=== PATIENT | male | born 1960 ===

== ENCOUNTER 2017-06-13 14:17 | Emergency (ER) | payer MEDICARE ==
[2017-06-13 14:25] VITALS: TEMP 98
[2017-06-13 15:13] LABS: BASO % 0.5 % (0.0-2.0); EOS # 0.2 K/uL (0.0-0.7); EOS % 2.5 % (0.0-4.0); HEMATOCRIT 27.4 % (35.0-51.0); LYMPH # 0.6 K/uL (1.0-4.3); LYMPH % 8.9 % (20.0-40.0); MEAN CELL VOLUME 87.4 fL (80.0-94.0); MEAN CORPUSCULAR HEMOGLOBIN 29.4 pg (27.0-31.0); MEAN CORPUSCULAR HGB CONC 33.7 g/dL (33.0-37.0); MEAN PLATELET VOLUME 10.4 fL (7.2-11.7); MONO # 0.7 K/uL (0.0-0.8); MONO % 10.2 % (0.0-10.0); PLATELET COUNT 116 K/uL (130-400); RED CELL DISTRIBUTION WIDTH 15.4 % (11.5-14.5); WHITE BLOOD COUNT 6.4 K/uL (4.8-10.8)
--- NOTE | 2017-06-13 15:14 | RAD ---
PROCEDURE: CHEST RADIOGRAPH, 1 VIEW HISTORY: SOB COMPARISON: None available. FINDINGS: LUNGS: Mild pulmonary vascular congestion is noted. PLEURA: No pneumothorax or pleural fluid seen. CARDIOVASCULAR: The cardiac silhouette is mildly enlarged. OSSEOUS STRUCTURES: No significant abnormalities. VISUALIZED UPPER ABDOMEN: Normal. OTHER FINDINGS: None. IMPRESSION: Mild cardiomegaly and mild pulmonary vascular congestion.
[2017-06-13 15:53] LABS: EOSINOPHIL 2 % (0-4); NEUTROPHIL 82 % (50-75); TOTAL CELLS COUNTED 100
[2017-06-13 15:58] LABS: LARGE PLATELETS PRESENT
[2017-06-13 16:40] LABS: BILIRUBIN,TOTAL 0.6 mg/dL (0.2-1.3); CALCIUM 7.6 mg/dl (8.6-10.4); POTASSIUM 3.6 mmol/L (3.6-5.2); TROPONIN I 0.287 ng/mL (0.00-0.120)
[2017-06-13 17:44] VITALS: BP 169/88; PULSE 64; RESP 18; O2SAT 100
--- NOTE | 2017-06-13 18:03 | C.PDOC ---
History Of Present Illness 56 year old male with PMHx of CHF and asthma presents to the ED for evaluation of SOB and dyspnea on exertion for several days. Patient has questionable compliance with his medications. Patient denies any CP, abdominal pain, fever, nausea, vomit, cough, diarrhea, headache, numbness or weakness. Chief Complaint (Nursing): Shortness Of Breath History Per: Patient History/Exam Limitations: no limitations Onset/Duration Of Symptoms: Days Current Symptoms Are (Timing): Still Present Quality: "Pain" Current Respiratory Medications: See Home Med List Severity: Mild Recent travel outside of the [place]: No Additional History Per: Patient Past Medical History Reviewed: Historical Data, Nursing Documentation, Vital Signs Vital Signs: Last Vital Signs Temp 98.0 F 06/13/17 14:22 Pulse 64 06/13/17 17:30 Resp 18 06/13/17 17:30 BP 169/88 H 06/13/17 17:30 Pulse Ox 100 06/13/17 18:14 - Medical History PMH: Asthma, CHF Surgical History: No Surg Hx Family History: States: Unknown Family Hx - Social History Hx Alcohol Use: No Hx Substance Use: No Review Of Systems Constitutional: Negative for: Fever, Chills Cardiovascular: Positive for: Chest Pain. Negative for: Palpitations Respiratory: Positive for: Shortness of Breath, SOB with Excertion. Negative for: Cough Gastrointestinal: Negative for: Nausea, Vomiting, Abdominal Pain Genitourinary: Negative for: Dysuria, Hematuria Musculoskeletal: Negative for: Neck Pain, Back Pain Skin: Negative for: Rash Neurological: Negative for: Weakness, Numbness, Headache Physical Exam - Physical Exam Appears: Non-toxic, No Acute Distress, Other (Obese) Skin: Normal Color, Warm, Dry Head: Atraumatic, Normacephalic Nose: No Discharge Oral Mucosa: Moist Neck: Normal ROM, Supple Chest: Symmetrical Cardiovascular: Rhythm Regular, No Murmur Respiratory: No Accessory Muscle Use, Rales (Bases B/L), No Rhonchi, No Wheezing Gastrointestinal/Abdominal: Soft, No Tenderness, No Rebound, Other (Obese) Extremity: Normal ROM, Pedal Edema (1+), No Calf Tenderness, No Deformity Neurological/Psych: Oriented x3, Normal Speech, Normal Cognition Gait: Steady ED Course And Treatment - Laboratory Results Result Diagrams: 06/13/17 15:07 06/13/17 15:07 ECG: Interpreted By Me, Viewed By Me ECG Rhythm: Sinus Rhythm ECG Interpretation: Normal Rate From EC O2 Sat by Pulse Oximetry: 100 (On RA) Pulse Ox Interpretation: Normal - Radiology CXR: Interpreted by Me, Viewed By Me, Read By Radiologist CXR Interpretation: Yes: Cardiomegaly (Mild), Other (Mild cardiomegaly and mild pulmonary vascular congestion.) Medical Decision Making Medical Decision Making: Plan: * EKG * CXR * Aspirin 325 mg PO * Catapres 0.1 mg PO * Lasix 20 mg IVP * Blood work Upon questioning about elevated creatinine patient produced a referral for vascular surgery for dialysis shunt placed, discussed elevated troponin where it can be cardiac related. Patient denies CP refusing to be admitted to the hospital for further evaluation signed AMA and states he will follow up with PMD tomorrow morning. Patient understands risks of leaving hospital, including worsening of conditions and . Patient undersood and signed AMA form. Disposition - [facility] - Disposition: AGAINST MEDICAL ADVICE Disposition Time: 17:00 Condition: UNKNOWN Additional Instructions: Thank you for letting us take care of you today. The emergency medical care you received today was directed at your acute symptoms. If you were prescribed any medication, please fill it and take as directed. It may take several days for your symptoms to resolve. Return to the Emergency Department if your symptoms worsen, do not improve, or if you have any other problems. Please contact your doctor or call one of the physicians/clinics you have been referred to that are listed on the Patient Visit Information form that is included in your discharge packet. Bring any paperwork you were given at discharge with you along with any medications you are taking to your follow up visit. Our treatment cannot replace ongoing medical care by a primary care provider (PCP) outside of the emergency department. Thank you for allowing the [facility] team to be part of your care today. YOU SIGNED OUT AGAINST MEDICAL ADVICE TODAY. PLEASE FOLLOW UP WITH YOUR PRIMARY DOCTOR SOON POSSIBLE. RETURN TO THE EMERGENCY ROOM IF YOU HAVE ANY CONCERNS OR YOUR SYMPTOMS WORSEN. Instructions: Chronic Kidney Disease (ED), Chronic Hypertension (ED) Forms: [employer] (Tanzanian) - Clinical Impression Clinical Impression: Chronic congestive heart failure, Renal failure, Hypertension - Scribe Statement The provider has reviewed the documentation as recorded by the Scribjennifer Mello All medical record entries made by the Scribe were at my direction and personally dictated by me. I have reviewed the chart and agree that the record accurately reflects my personal performance of the history, physical exam, medical decision making, and the department course for this patient. I have also personally directed, reviewed, and agree with the discharge instructions and disposition. Against Medical Advice - AMA Patient Left Against Medical Advice: The patient declines admission to the hospital and wishes to leave the Emergency Department. This action is against my medical advice. This decision was made with informed refusal. The patient was told that admission to the hospital is necessary. Explanation of the reasons why were discussed. The risks of leaving were explained to the patient and include, but are not limited to, worsening of known or currently unknown conditions, permanent disability and from undiagnosed or untreated conditions. The patient has the capacity to make this informed decision and understands my explanation of the current medical problem and risks of leaving. The patient voluntarily accepts these risks and signed an AMA form documenting our conversation. The patient was given the opportunity to ask questions and reconsider. The patient was encouraged to return to the Emergency Department at any time for further care.
--- NOTE | 2017-06-14 19:04 | CARD ---
APPROVED REPORT EKG Measurement Heart [id number] <Conclusion> Normal sinus rhythm Abnormal QRS-T angle, consider primary T wave abnormality Abnormal ECG
== END 2017-06-13 17:44 | disposition left against medical advice (07) ==
LOC: C.ER 14:17
DX: I13.0 Hypertensive heart and chronic kidney disease with heart failure and stage 1 through stage 4 chronic kidney disease, or unspecified chronic kidney disease (principal); N18.9 Chronic kidney disease, unspecified; I50.9 Heart failure, unspecified
CPT/HCPCS: 71010; 80053; 83880; 84484; 85025; 93005; 96374; 99285; J1940

== ENCOUNTER 2017-07-15 07:49 | Inpatient (IN) | payer MEDICARE ==
[2017-07-15] MEDS ORDERED: Albuterol-Ipratrop 3 mg / 0.5 (3 ml) UD ONE (08:20)
--- NOTE | 2017-07-15 08:23 | C.PDOC ---
History Of Present Illness 56-YEAR-OLD MALE, PRESENTS TO THE EMERGENCY DEPARTMENT WITH COMPLAINTS OF ASTHMA EXAC X 1 WEEK. NO IMPROVE W HOME MEDS. SAW PMD YEST FOR SAME, GIVEN NEW UNK PUMP BUT NO PREDNISONE. +SUBJ FEVER, CHILLS. +CHEST BOZENA. +WILHELM NO SWELLING. 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 SP NEB X 3 IN PROGRESS MILD DIST HEENT NEG LUNGS +EXP WHEEZE SCATTERED +RETRACTION SPEAKING FULL SENTENCES CV RRR NO EDEMA REMAINDE RNEG Time Seen by Provider: 07/15/17 08:12 Chief Complaint (Nursing): Shortness Of Breath History Per: Patient History/Exam Limitations: no limitations Onset/Duration Of Symptoms: Days Past Medical History Reviewed: Historical Data, Nursing Documentation, Vital Signs Vital Signs: Last Vital Signs Temp 98.9 F 07/15/17 07:55 Pulse 90 07/15/17 07:55 Resp 22 07/15/17 07:55 BP 138/82 07/15/17 07:55 Pulse Ox 95 07/15/17 10:38 - Medical History PMH: Asthma, CHF Family History: States: No Known Family Hx - Social History Hx Alcohol Use: No Hx Substance Use: No Review Of Systems Constitutional: Positive for: Fever, Chills Cardiovascular: Positive for: Other (chest congestion). Negative for: Chest Pain Respiratory: Positive for: Shortness of Breath, Wheezing Gastrointestinal: Negative for: Nausea, Vomiting Musculoskeletal: Negative for: Back Pain Skin: Negative for: Rash Neurological: Negative for: Weakness, Numbness, Headache, Dizziness Physical Exam - Physical Exam Appears: Non-toxic, No Acute Distress Skin: Warm, Dry Head: Atraumatic, Normacephalic Eye(s): bilateral: Normal Inspection, PERRL Nose: Normal Oral Mucosa: Moist Neck: Normal ROM Cardiovascular: Rhythm Regular, No Murmur Respiratory: No Accessory Muscle Use, Other (+EXP WHEEZE SCATTERED +RETRACTION SPEAKING FULL SENTENCES. SP NEB X 3 IN PROGRESS MILD DIST) Extremity: Normal ROM, No Pedal Edema Neurological/Psych: Oriented x3, Normal Speech ED Course And Treatment - Laboratory Results Result Diagrams: 07/15/17 08:49 07/15/17 08:49 Interpretation Of Abnormal: PERSIST RENAL INSUFF UNCH FROM PRIOR. ECG: Interpreted By Me ECG Rhythm: Sinus Rhythm ECG Interpretation: No Changes From Prior Interpretation Of ECG: TWI AVL Rate From EC O2 Sat by Pulse Oximetry: 95 (on RA) Pulse Ox Interpretation: Normal Progress - Re-Evaluation Re-evaluation Note: 07/15/17 10:37 D/W Zoraida NATARAJAN C/F PMD AWARE OF ER FINDINGS WILL ADMIT. REQUESTS DIMER - Data Reviewed Data Reviewed: Lab, Diagnostic imaging, EKG - Critical Care Citical Care: Excluding Proc Time Critical Care Time: 90 minutes - Continuity of Care Discussed patient case with:: Patient, Covering for PMD Disposition Counseled Patient/Family Regarding: Studies Performed, Diagnosis - Disposition Disposition: HOSPITALIZED Disposition Time: 10:40 Condition: STABLE Forms: [employer] (Macedonian) - POA Present On Arrival: None - Clinical Impression Clinical Impression: Renal insufficiency, Dyspnea, Chronic congestive heart failure - Scribe Statement The provider has reviewed the documentation as recorded by the Scribe (Sanjuana Spence) All medical record entries made by the Scribe were at my direction and personally dictated by me. I have reviewed the chart and agree that the record accurately reflects my personal performance of the history, physical exam, medical decision making, and the department course for this patient. I have also personally directed, reviewed, and agree with the discharge instructions and disposition. Decision To Admit - Pt Status Changed To: Hospital Disposition Of: Inpatient - Admit Certification Admit to Inpatient:: After my assessment, the patient will require hospitalization for at least two midnights. This is because of the severity of symptoms shown, intensity of services needed, and/or the medical risk in this patient being treated as an outpatient. - InPatient: Physician Admission Certification:: SEE NOTE - . Bed Request Type: Telemetry Admitting Physician: Mert Natarajan Patient Diagnosis: Renal insufficiency, Dyspnea, Chronic congestive heart failure, Elevated troponin
--- NOTE | 2017-07-15 08:59 | RAD ---
Chest x-ray single frontal view History: Shortness breath. Comparison: None available. Findings: Diffuse increased interstitial lung markings suggestive for venous congestion versus edema versus interstitial infiltrates. Clinical correlation. Mild cardiomegaly. Degenerative changes in the spine and shoulders. Impression: Diffuse increased interstitial lung markings suggestive for venous congestion versus edema versus interstitial infiltrates. Clinical correlation. Mild cardiomegaly.
[2017-07-15 09:02] LABS: BASO % 0.5 % (0.0-2.0); EOS # 0.2 K/uL (0.0-0.7); EOS % 2.4 % (0.0-4.0); HEMOGLOBIN 7.8 g/dL (12.0-18.0); LYMPH # 0.4 K/uL (1.0-4.3); LYMPH % 3.8 % (20.0-40.0); MEAN CELL VOLUME 86.3 fL (80.0-94.0); MEAN CORPUSCULAR HEMOGLOBIN 28.7 pg (27.0-31.0); MEAN CORPUSCULAR HGB CONC 33.2 g/dL (33.0-37.0); MEAN PLATELET VOLUME 9.4 fL (7.2-11.7); MONO # 0.6 K/uL (0.0-0.8); MONO % 6.2 % (0.0-10.0); NEUT # 8.1 K/uL (1.8-7.0); NEUT % 87.1 % (50.0-75.0); PLATELET COUNT 179 K/uL (130-400); RBC 2.71 Mil/uL (4.40-5.90); RED CELL DISTRIBUTION WIDTH 14.4 % (11.5-14.5); WHITE BLOOD COUNT 9.3 K/uL (4.8-10.8)
[2017-07-15 09:32] LABS: EOSINOPHIL 2 % (0-4); LYMPHOCYTE 4 % (20-40); MONOCYTE 2 % (0-10); NEUTROPHIL 92 % (50-75); PLATELET ESTIMATE NORMAL (NORMAL); TOTAL CELLS COUNTED 100
[2017-07-15 09:33] LABS: HYPOCHROMIC SLIGHT; POLYCHROMIC SLIGHT
[2017-07-15 09:48] LABS: ALBUMIN 3.5 g/dL (3.5-5.0); TROPONIN I 0.194 ng/mL (0.00-0.120)
[2017-07-15] MEDS ORDERED: Enoxaparin 40 mg Syringe SC STA (09:56)
[2017-07-15] MEDS ORDERED: Enoxaparin 100 mg Syringe ONE (10:46)
[2017-07-15 15:43] LABS: CK-MB 1.22 ng/mL (0.0-3.38)
[2017-07-15 16:18] LABS: TROPONIN I 0.185 ng/mL (0.00-0.120)
[2017-07-15 21:20] LABS: MEAN CELL VOLUME 86.1 fL (80.0-94.0); MEAN CORPUSCULAR HGB CONC 32.6 g/dL (33.0-37.0); MEAN PLATELET VOLUME 9.3 fL (7.2-11.7); RBC 2.85 Mil/uL (4.40-5.90); RED CELL DISTRIBUTION WIDTH 14.5 % (11.5-14.5)
--- NOTE | 2017-07-15 21:27 | CP.PCM.CON ---
History of Present Illness - History of Present Illness History of Present Illness: 56 with hx of HTN, SOB asthma, reported renal and heart failure no details, seen at ED 06/20 declined admission, now reports sob wheezing for 1 wk, recently seen by pmd, labs GFR of 15, TNI .18 can be due to renal failure, no CP or acute EKG changes, f/u with Echo, was followed by Dr Galindo had cath normal coronaries Review of Systems - Review of Systems Systems not reviewed;Unavailable: Unstable Vital Signs - Constitutional Constitutional: Anorexia, Weakness - EENT Eyes: absent: Discharge Ears: absent: Ear Discharge, Dizziness Nose/Mouth/Throat: absent: Epistaxis - Cardiovascular Cardiovascular: Chest Pain. absent: Acrocyanosis, Diaphoresis, Palpitations, Syncope - Respiratory Respiratory: Dyspnea, Wheezing. absent: Cough, Hemoptysis - Gastrointestinal Gastrointestinal: absent: Abdominal Pain, Diarrhea, Hematochezia, Nausea, Vomiting - Genitourinary Genitourinary: absent: Change in Urinary Stream Past Patient History - Past Medical History & Family History Past Medical History?: Yes - Past Social History Smoking Status: Former Smoker - CARDIAC Hx Congestive Heart Failure: Yes Hx Hypertension: Yes - PULMONARY Hx Asthma: Yes Hx Pneumonia: Yes - RENAL Other/Comment: kidney insufficiency - MUSCULOSKELETAL/RHEUMATOLOGICAL Hx Back Pain: Yes Hx Falls: No Hx Herniated Disk: Yes - PSYCHIATRIC Hx Substance Use: No - SURGICAL HISTORY Hx Appendectomy: Yes (1982) - ANESTHESIA Hx Anesthesia: Yes Hx Anesthesia Reactions: Yes Hx Malignant Hyperthermia: No Has any member of the family had a problem w/ anesthesia?: No Meds Allergies/Adverse Reactions: Allergies Allergy/AdvReac Type Severity Reaction Status Date / Time No Known Allergies Allergy Verified 07/15/17 08:02 - Medications Medications: Current Medications Carvedilol (Coreg) 12.5 mg PO BID [facility] Last Admin: 07/15/17 18:34 Dose: 12.5 mg Clonidine HCl (Catapres) 0.1 mg PO BID [facility] Last Admin: 07/15/17 18:35 Dose: 0.1 mg Doxazosin Mesylate (Cardura) 2 mg PO DAILY [facility] Enoxaparin Sodium (Lovenox) 40 mg SC DAILY [facility] Montelukast Sodium (Singulair) 10 mg PO DAILY [facility] Pantoprazole Sodium (Protonix Ec Tab) 40 mg PO DAILY [facility] Rosuvastatin Calcium (Crestor) 20 mg PO HS [facility] Physical Exam - Constitutional Appears: Non-toxic - Head Exam Head Exam: ATRAUMATIC - Eye Exam Eye Exam: EOMI - ENT Exam ENT Exam: Mucous Membranes Moist - Neck Exam Neck exam: Negative for: Lymphadenopathy, Thyromegaly - Respiratory Exam Respiratory Exam: Prolonged Expiratory Phase, Wheezes. absent: Rales - Cardiovascular Exam Cardiovascular Exam: REGULAR RHYTHM, Systolic Murmur - GI/Abdominal Exam GI & Abdominal Exam: Normal Bowel Sounds. absent: Organomegaly - Rectal Exam Rectal Exam: Deferred - Extremities Exam Extremities exam: Positive for: normal capillary refill. Negative for: calf tenderness - Neurological Exam Neurological exam: Alert, Oriented x3 - Psychiatric Exam Psychiatric exam: Anxious - Skin Skin Exam: Dry Results - Vital Signs Recent Vital Signs: Last Vital Signs Temp 98.3 F 07/15/17 18:21 Pulse 83 07/15/17 18:21 Resp 20 07/15/17 18:21 BP 155/89 H 07/15/17 18:34 Pulse Ox 96 07/15/17 18:21 - Labs Result Diagrams: 07/16/17 07:22 07/15/17 08:49 Labs: Laboratory Results - last 24 hr 07/15/17 07/15/17 07/15/17 08:23 08:49 08:49 WBC 9.3 RBC 2.71 L Hgb 7.8 L Hct 23.4 L MCV 86.3 MCH 28.7 MCHC 33.2 RDW 14.4 Plt Count 179 MPV 9.4 Neut % (Auto) 87.1 H Lymph % (Auto) 3.8 L [place] % (Auto) 6.2 Eos % (Auto) 2.4 Baso % (Auto) 0.5 Neut # 8.1 H Lymph # 0.4 L [place] # 0.6 Eos # 0.2 Baso # 0.0 Neutrophils % (Manual) 92 H Lymphocytes % (Manual) 4 L Monocytes % (Manual) 2 Eosinophils % (Manual) 2 Platelet Estimate Normal Polychromasia Slight Hypochromasia (manual) Slight D-Dimer, Quantitative Sodium 135 Potassium 4.0 Chloride 101 Carbon Dioxide 25 Anion Gap 14 BUN 62 H Creatinine 4.8 H Est GFR ( Amer) 15 Est GFR (Non-Af Amer) 13 POC Glucose (mg/dL) Random Glucose 147 H Calcium 8.0 L Total Bilirubin 0.5 AST 19 ALT 23 Alkaline Phosphatase 53 Total Creatine Kinase CK-MB (Mass) Troponin I 0.1940 H* NT-Pro-B Natriuret Pep 2040 H Total Protein 6.8 Albumin 3.5 Globulin 3.4 Albumin/Globulin Ratio 1.0 Influenza Typ A,B (EIA) Negative for flu a/b 07/15/17 07/15/17 07/15/17 11:05 15:16 20:59 WBC RBC Hgb Hct MCV MCH MCHC RDW Plt Count MPV Neut % (Auto) Lymph % (Auto) [place] % (Auto) Eos % (Auto) Baso % (Auto) Neut # Lymph # [place] # Eos # Baso # Neutrophils % (Manual) Lymphocytes % (Manual) Monocytes % (Manual) Eosinophils % (Manual) Platelet Estimate Polychromasia Hypochromasia (manual) D-Dimer, Quantitative 945 H Sodium Potassium Chloride Carbon Dioxide Anion Gap BUN Creatinine Est GFR ( Amer) Est GFR (Non-Af Amer) POC Glucose (mg/dL) 306 H Random Glucose Calcium Total Bilirubin AST ALT Alkaline Phosphatase Total Creatine Kinase 100 CK-MB (Mass) 1.22 Troponin I 0.1850 H* NT-Pro-B Natriuret Pep Total Protein Albumin Globulin Albumin/Globulin Ratio Influenza Typ A,B (EIA) Assessment & Plan (1) Shortness of breath Status: Acute Comment: asthma V/S failure, BNP 2000, f/u with echo, can be diastolic failure with renal failure (2) Elevated troponin Status: Acute Comment: unlikely SC, no CP or ekg changes (3) Renal failure Status: Acute Comment: GFR 15, consider HD Stage V
[2017-07-15 21:29] LABS: SQUAMOUS EPITHIAL < 1 /hpf (0-5); URINE BACTERIA RARE (<OCC); URINE BILIRUBIN NEGATIVE (NEGATIVE); URINE BLOOD NEGATIVE (NEGATIVE); URINE CLARITY Hazy (Clear); URINE COLOR Yellow (YELLOW); URINE GLUCOSE (UA) 2+ mg/dL (Normal); URINE LEUKOCYTE ESTERASE NEG Leu/uL (Negative); URINE NITRATE NEGATIVE (NEGATIVE); URINE PROTEIN 3+ mg/dL (NEGATIVE); URINE UROBILINOGEN NORMAL mg/dL (0.2-1.0)
[2017-07-15 21:52] LABS: CK-MB 1.18 ng/mL (0.0-3.38); TROPONIN I 0.156 ng/mL (0.00-0.120)
--- NOTE | 2017-07-15 23:30 | CP.PCM.HP ---
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 , seen at ED 06/20 declined admission, now reports sob wheezing for 1 wk, recently seen by pmd, labs GFR of 15, TNI .18 can be due to renal failure, no CP or acute EKG changes, f/u with Echo, pt also reports generalized weakness with dysonea on rest as well as exertion, he has lack of energy denies any chest pain, diaphoresis, had tinglin g and numbness in b/l LE Present on Admission - Present on Admission Any Indicators Present on Admission: Yes Review of Systems - Review of Systems Systems not reviewed;Unavailable: Acuity of Condition - Constitutional Constitutional: Fatigue, Lethargy, Malaise, Weakness - EENT Eyes: absent: As Per HPI, Blind Spots, Blurred Vision, Change in Vision, Decreased Night Vision, Diplopia, Discharge, Dry Eye, Exophthalmos, Floaters, Irritation, Itchy Eyes, Loss of Peripheral Vision, Pain, Photophobia, Requires Corrective Lenses, Sees Flashes, Spots in Vision, Tunnel Vision, Other Visual Disturbances, Loss of Vision, Other Nose/Mouth/Throat: absent: As Per HPI, Epistaxis, Nasal Congestion, Nasal Discharge, Nasal Obstruction, Nasal Trauma, Nose Pain, Post Nasal Drip, Sinus Pain, Sinus Pressure, Bleeding Gums, Change in Voice, Dental Pain, Dry Mouth, Dysphagia, Halitosis, Hoarsness, Lip Swelling, Mouth Lesions, Mouth Pain, Odynophagia, Sore Throat, Throat Swelling, Tongue Swelling, Facial Pain, Neck Pain, Neck Mass, Other - Cardiovascular Cardiovascular: Dyspnea, Dyspnea on Exertion. absent: As Per HPI, Acrocyanosis , Chest Pain, Chest Pain at Rest, Chest Pain with Activity, Claudication, Diaphoresis, Edema, Irregular Heart Rhythm, Pain Radiating to Arm/Neck/Jaw, Leg Edema, Leg Ulcers, Lightheadedness, Orthopnea, Palpitations, Paroxysmal Nocturnal Dyspnea, Pedal Edema, Radiating Pain, Rapid Heart Rate, Slow Heart Rate, Syncope, Other - Gastrointestinal Gastrointestinal: absent: As Per HPI, Abdominal Pain, Belching, Bloating, Change in Bowel Habits, Change in Stool Character, Coffee Ground Emesis, Constipation, Cramping, Diarrhea, Dyspepsia, Dysphagia, Early Satiety, Excessive Flatus, Fecal Incontinence, Heartburn, Hematemesis, Hematochezia, Loose Stools, Melena, Nausea, Odynophagia, Temesmus, Vomiting, Other - Genitourinary Genitourinary: absent: As Per HPI, Change in Urinary Stream, Difficulty Urinating, Dysuria, Flank Pain, Hematuria, Pyuria, Nocturia, Urinary Incontinence, Urinary Frequency, Urinary Hesitance, Urinary Urgency, Voiding Freq/Small Amts, Freq UTI, Hx Renal/Bladder Calculi, Hx /Renal Surgery, Bladder Distension, Other - Musculoskeletal Musculoskeletal: Limited Range of Motion, Muscle Cramps, Muscle Weakness, Myalgias, Numbness, Tingling - Integumentary Integumentary: absent: As Per HPI, Acne, Alopecia, Bleeding Lesions, Change in Hair, Change in Nails, Change in Pigmentation, Changing Lesions, Dry Skin, Erythema, Furuncle, Hirsutism, Lesions, New Lesions, Non-Healing Lesions, Photosensitivity, Pruritus, Rash, Skin Pain, Skin Ulcer, Sores, Striae, Swelling , Unusual Bruising, Wounds, Jaundice, Other - Neurological Neurological: absent: As Per HPI, Abnormal Gait, Abnormal Hearing, Abnormal Movements, Abnormal Speech, Behavioral Changes, Burning Sensations, Confusion, Convulsions, Disequilibrium, Dizziness, Numbness, Focal Weakness, Frequent Falls , Headaches, Lack of Coordination, Loss of Vision, Memory Loss, Paresthesias, Radicular Pain, Restless Legs, Sensory Deficit, Syncope, Tingling, Tremor, Vertigo, Weakness, Other Visual Disturbances, Other Past Patient History - Past Medical History & Family History Past Medical History?: Yes - Past Social History Smoking Status: Former Smoker - CARDIAC Hx Congestive Heart Failure: Yes Hx Hypertension: Yes - PULMONARY Hx Asthma: Yes Hx Pneumonia: Yes - RENAL Other/Comment: kidney insufficiency - MUSCULOSKELETAL/RHEUMATOLOGICAL Hx Back Pain: Yes Hx Falls: No Hx Herniated Disk: Yes - PSYCHIATRIC Hx Substance Use: No - SURGICAL HISTORY Hx Appendectomy: Yes (1982) - ANESTHESIA Hx Anesthesia: Yes Hx Anesthesia Reactions: Yes Hx Malignant Hyperthermia: No Has any member of the family had a problem w/ anesthesia?: No Meds Allergies/Adverse Reactions: Allergies Allergy/AdvReac Type Severity Reaction Status Date / Time No Known Allergies Allergy Verified 07/15/17 08:02 Physical Exam - Constitutional Appears: No Acute Distress Additional comments: mild resp distress - Head Exam Head Exam: ATRAUMATIC, NORMAL INSPECTION, NORMOCEPHALIC - Eye Exam Eye Exam: EOMI, Normal appearance, PERRL Pupil Exam: NORMAL ACCOMODATION, PERRL - Respiratory Exam Respiratory Exam: Decreased Breath Sounds, Rales, Rhonchi - Cardiovascular Exam Cardiovascular Exam: REGULAR RHYTHM, +S1, +S2 Additional comments: S3 positive - Skin Skin Exam: Pallor Results - Vital Signs Recent Vital Signs: Last Vital Signs Temp 98.3 F 07/15/17 18:21 Pulse 83 07/15/17 18:21 Resp 20 07/15/17 18:21 BP 155/89 H 07/15/17 18:34 Pulse Ox 96 07/15/17 18:21 - Labs Result Diagrams: 07/15/17 21:09 07/15/17 08:49 Labs: Laboratory Results - last 24 hr 07/15/17 07/15/17 07/15/17 08:23 08:49 08:49 WBC 9.3 RBC 2.71 L Hgb 7.8 L Hct 23.4 L MCV 86.3 MCH 28.7 MCHC 33.2 RDW 14.4 Plt Count 179 MPV 9.4 Neut % (Auto) 87.1 H Lymph % (Auto) 3.8 L Wilkinson % (Auto) 6.2 Eos % (Auto) 2.4 Baso % (Auto) 0.5 Neut # 8.1 H Lymph # 0.4 L Wilkinson # 0.6 Eos # 0.2 Baso # 0.0 Neutrophils % (Manual) 92 H Lymphocytes % (Manual) 4 L Monocytes % (Manual) 2 Eosinophils % (Manual) 2 Platelet Estimate Normal Polychromasia Slight Hypochromasia (manual) Slight D-Dimer, Quantitative Sodium 135 Potassium 4.0 Chloride 101 Carbon Dioxide 25 Anion Gap 14 BUN 62 H Creatinine 4.8 H Est GFR ( Amer) 15 Est GFR (Non-Af Amer) 13 POC Glucose (mg/dL) Random Glucose 147 H Calcium 8.0 L Total Bilirubin 0.5 AST 19 ALT 23 Alkaline Phosphatase 53 Total Creatine Kinase CK-MB (Mass) Troponin I 0.1940 H* NT-Pro-B Natriuret Pep 2040 H Total Protein 6.8 Albumin 3.5 Globulin 3.4 Albumin/Globulin Ratio 1.0 Urine Color Urine Clarity Urine pH Ur Specific Winfred Urine Protein Urine Glucose (UA) Urine Ketones Urine Blood Urine Nitrate Urine Bilirubin Urine Urobilinogen Ur Leukocyte Esterase Urine WBC (Auto) Urine RBC (Auto) Ur Squamous Epith Cells Urine Bacteria Influenza Typ A,B (EIA) Negative for flu a/b Blood Type Antibody Screen 07/15/17 07/15/17 07/15/17 11:05 15:16 20:59 WBC RBC Hgb Hct MCV MCH MCHC RDW Plt Count MPV Neut % (Auto) Lymph % (Auto) Wilkinson % (Auto) Eos % (Auto) Baso % (Auto) Neut # Lymph # Wilkinson # Eos # Baso # Neutrophils % (Manual) Lymphocytes % (Manual) Monocytes % (Manual) Eosinophils % (Manual) Platelet Estimate Polychromasia Hypochromasia (manual) D-Dimer, Quantitative 945 H Sodium Potassium Chloride Carbon Dioxide Anion Gap BUN Creatinine Est GFR ( Amer) Est GFR (Non-Af Amer) POC Glucose (mg/dL) 306 H Random Glucose Calcium Total Bilirubin AST ALT Alkaline Phosphatase Total Creatine Kinase 100 CK-MB (Mass) 1.22 Troponin I 0.1850 H* NT-Pro-B Natriuret Pep Total Protein Albumin Globulin Albumin/Globulin Ratio Urine Color Urine Clarity Urine pH Ur Specific Winfred Urine Protein Urine Glucose (UA) Urine Ketones Urine Blood Urine Nitrate Urine Bilirubin Urine Urobilinogen Ur Leukocyte Esterase Urine WBC (Auto) Urine RBC (Auto) Ur Squamous Epith Cells Urine Bacteria Influenza Typ A,B (EIA) Blood Type Antibody Screen 07/15/17 07/15/17 07/15/17 21:09 21:09 21:09 WBC 8.0 RBC 2.85 L Hgb 8.0 L Hct 24.5 L MCV 86.1 MCH 28.0 MCHC 32.6 L RDW 14.5 Plt Count 200 MPV 9.3 Neut % (Auto) Lymph % (Auto) Wilkinson % (Auto) Eos % (Auto) Baso % (Auto) Neut # Lymph # Wilkinson # Eos # Baso # Neutrophils % (Manual) Lymphocytes % (Manual) Monocytes % (Manual) Eosinophils % (Manual) Platelet Estimate Polychromasia Hypochromasia (manual) D-Dimer, Quantitative Sodium Potassium Chloride Carbon Dioxide Anion Gap BUN Creatinine Est GFR ( Amer) Est GFR (Non-Af Amer) POC Glucose (mg/dL) Random Glucose Calcium Total Bilirubin AST ALT Alkaline Phosphatase Total Creatine Kinase CK-MB (Mass) Troponin I NT-Pro-B Natriuret Pep Total Protein Albumin Globulin Albumin/Globulin Ratio Urine Color Yellow Urine Clarity Hazy Urine pH 5.0 Ur Specific Winfred 1.014 Urine Protein 3+ H Urine Glucose (UA) 2+ H Urine Ketones Negative Urine Blood Negative Urine Nitrate Negative Urine Bilirubin Negative Urine Urobilinogen Normal Ur Leukocyte Esterase Neg Urine WBC (Auto) 5 Urine RBC (Auto) 4 H Ur Squamous Epith Cells < 1 Urine Bacteria Rare Influenza Typ A,B (EIA) Blood Type O POSITIVE Antibody Screen Negative 07/15/17 21:09 WBC RBC Hgb Hct MCV MCH MCHC RDW Plt Count MPV Neut % (Auto) Lymph % (Auto) Wilkinson % (Auto) Eos % (Auto) Baso % (Auto) Neut # Lymph # Wilkinson # Eos # Baso # Neutrophils % (Manual) Lymphocytes % (Manual) Monocytes % (Manual) Eosinophils % (Manual) Platelet Estimate Polychromasia Hypochromasia (manual) D-Dimer, Quantitative Sodium Potassium Chloride Carbon Dioxide Anion Gap BUN Creatinine Est GFR ( Amer) Est GFR (Non-Af Amer) POC Glucose (mg/dL) Random Glucose Calcium Total Bilirubin AST ALT Alkaline Phosphatase Total Creatine Kinase 93 CK-MB (Mass) 1.18 Troponin I 0.1560 H* NT-Pro-B Natriuret Pep Total Protein Albumin Globulin Albumin/Globulin Ratio Urine Color Urine Clarity Urine pH Ur Specific Winfred Urine Protein Urine Glucose (UA) Urine Ketones Urine Blood Urine Nitrate Urine Bilirubin Urine Urobilinogen Ur Leukocyte Esterase Urine WBC (Auto) Urine RBC (Auto) Ur Squamous Epith Cells Urine Bacteria Influenza Typ A,B (EIA) Blood Type Antibody Screen Assessment & Plan (1) Chronic congestive heart failure Assessment and Plan: rule out underlysing coronary ischemia given risk factors Status: Acute (2) Dyspnea Status: Acute (3) Hypertension Status: Acute (4) Renal failure Status: Acute (5) Elevated troponin Assessment and Plan: Rule out [place] Status: Acute
[2017-07-16 07:31] LABS: BASO % 0.2 % (0.0-2.0); HEMOGLOBIN 7.6 g/dL (12.0-18.0); LYMPH # 0.3 K/uL (1.0-4.3); LYMPH % 2.8 % (20.0-40.0); MEAN CELL VOLUME 85.9 fL (80.0-94.0); MEAN CORPUSCULAR HEMOGLOBIN 29.3 pg (27.0-31.0); MEAN PLATELET VOLUME 9.1 fL (7.2-11.7); MONO # 0.7 K/uL (0.0-0.8); MONO % 6.4 % (0.0-10.0); NEUT # 9.7 K/uL (1.8-7.0); NEUT % 90.6 % (50.0-75.0); PLATELET COUNT 174 K/uL (130-400); RBC 2.59 Mil/uL (4.40-5.90); RED CELL DISTRIBUTION WIDTH 14.1 % (11.5-14.5); WHITE BLOOD COUNT 10.7 K/uL (4.8-10.8)
[2017-07-16 08:27] LABS: TROPONIN I 0.143 ng/mL (0.00-0.120)
[2017-07-16 08:28] LABS: CK-MB 1.23 ng/mL (0.0-3.38)
[2017-07-16] MEDS ORDERED: Enoxaparin 40 mg Syringe SC SCH ×2 (10:00)
[2017-07-16] MEDS: Pantoprazole 40 mg EC Tab PO SCH (10:00)
[2017-07-16 11:08] LABS: BANDS 1 % (0-2); LYMPHOCYTE 3 % (20-40); MONOCYTE 1 % (0-10); NEUTROPHIL 95 % (50-75); PLATELET ESTIMATE NORMAL (NORMAL); TOTAL CELLS COUNTED 100
[2017-07-16 11:09] LABS: HYPOCHROMIC SLIGHT
[2017-07-16 14:13] LABS: PROTHROMBIN TIME 11.7 SECONDS (9.7-12.2)
--- NOTE | 2017-07-16 15:08 | CP.PCM.PN ---
Subjective - Date & Time of Evaluation Date of Evaluation: 07/16/17 Time of Evaluation: 12:00 - Subjective Subjective: less sob still with cough, f/u with GI, unlikely CT Objective - Vital Signs/Intake and Output Vital Signs (last 24 hours): Temp Pulse Resp BP Pulse Ox 98.0 F 73 18 153/81 H 97 07/16/17 09:07 07/16/17 09:07 07/16/17 09:07 07/16/17 09:07 07/16/17 09:07 - Medications Medications: Current Medications Albuterol Sulfate (Albuterol 0.083% Inhal Madie (2.5 Mg/3 Ml) Ud) 2.5 mg INH RQ6 PRN PRN Reason: Shortness of Breath Carvedilol (Coreg) 12.5 mg PO BID [facility] Last Admin: 07/15/17 18:34 Dose: 12.5 mg Clonidine HCl (Catapres) 0.1 mg PO BID [facility] Last Admin: 07/15/17 18:35 Dose: 0.1 mg Doxazosin Mesylate (Cardura) 2 mg PO DAILY [facility] Enoxaparin Sodium (Lovenox) 30 mg SC DAILY [facility] Hydralazine HCl (Apresoline) 50 mg PO BID [facility] Last Admin: 07/15/17 22:03 Dose: 50 mg Montelukast Sodium (Singulair) 10 mg PO DAILY [facility] Pantoprazole Sodium (Protonix Ec Tab) 40 mg PO DAILY [facility] Rosuvastatin Calcium (Crestor) 10 mg PO HS [facility] - Labs Labs: 07/16/17 07:22 07/15/17 08:49 - Constitutional Appears: Non-toxic - Head Exam Head Exam: ATRAUMATIC - Eye Exam Eye Exam: EOMI - ENT Exam ENT Exam: Mucous Membranes Moist - Neck Exam Neck Exam: absent: Lymphadenopathy, Thyromegaly - Respiratory Exam Respiratory Exam: Prolonged Expiratory Phase, Wheezes. absent: Rales - Cardiovascular Exam Cardiovascular Exam: REGULAR RHYTHM, Murmur - GI/Abdominal Exam GI & Abdominal Exam: Normal Bowel Sounds. absent: Organomegaly - Rectal Exam Rectal Exam: Deferred - Extremities Exam Extremities Exam: Normal Capillary Refill. absent: Calf Tenderness - Neurological Exam Neurological Exam: Alert, Oriented x3 - Psychiatric Exam Psychiatric exam: Anxious - Skin Skin Exam: Dry Assessment and Plan (1) Shortness of breath Assessment & Plan: asthma, f/u with echo Status: Acute (2) Elevated troponin Assessment & Plan: stable probably due to renal failure, recent cardiac cath, unremarkable Status: Acute (3) Renal failure Status: Acute
[2017-07-16 19:46] LABS: IRON 44 ug/dL (49-181)
[2017-07-16 19:55] LABS: TOTAL IRON BINDING CAPACITY 230 ug/dL (250-450)
[2017-07-16 19:56] LABS: % IRON SATURATION 19 (20-55)
--- NOTE | 2017-07-16 23:28 | CP.PCM.PN ---
Subjective - Date & Time of Evaluation Date of Evaluation: 07/16/17 Time of Evaluation: 18:40 - Subjective Subjective: Pt seen and examined at bedside, pt is for blood transfusion, Colonscopy on hold due to low Hb and positive troponins Objective - Vital Signs/Intake and Output Vital Signs (last 24 hours): Temp Pulse Resp BP Pulse Ox 97.4 F L 84 18 166/91 H 97 07/16/17 22:35 07/16/17 22:35 07/16/17 22:35 07/16/17 22:35 07/16/17 15:30 Intake and Output: 07/16/17 07/17/17 18:59 06:59 Intake Total 0 Balance 0 - Medications Medications: Current Medications Albuterol Sulfate (Albuterol 0.083% Inhal Madie (2.5 Mg/3 Ml) Ud) 2.5 mg INH RQ6 PRN PRN Reason: Shortness of Breath Carvedilol (Coreg) 12.5 mg PO BID [facility] Last Admin: 07/16/17 17:49 Dose: 12.5 mg Clonidine HCl (Catapres) 0.1 mg PO Q8 [facility] Last Admin: 07/16/17 22:29 Dose: 0.1 mg Enoxaparin Sodium (Lovenox) 30 mg SC DAILY [facility] Furosemide (Lasix) 40 mg PO DAILY [facility] Last Admin: 07/16/17 20:40 Dose: 40 mg Hydralazine HCl (Apresoline) 50 mg PO Q8 [facility] Last Admin: 07/16/17 22:29 Dose: 50 mg Montelukast Sodium (Singulair) 10 mg PO DAILY [facility] Last Admin: 07/16/17 10:00 Dose: Not Given Pantoprazole Sodium (Protonix Ec Tab) 40 mg PO DAILY [facility] Last Admin: 07/16/17 10:00 Dose: Not Given Rosuvastatin Calcium (Crestor) 10 mg PO HS [facility] Last Admin: 07/16/17 22:30 Dose: 10 mg - Labs Labs: 07/16/17 07:22 07/15/17 08:49 PT 11.7 SECONDS (9.7-12.2) 07/16/17 13:57 INR 1.0 07/16/17 13:57 APTT 30 SECONDS (21-34) 07/16/17 13:57 - Constitutional Appears: No Acute Distress - Head Exam Head Exam: ATRAUMATIC, NORMAL INSPECTION, NORMOCEPHALIC - Eye Exam Eye Exam: EOMI, Normal appearance, PERRL Pupil Exam: NORMAL ACCOMODATION, PERRL - Respiratory Exam Respiratory Exam: Clear to Ausculation Bilateral, NORMAL BREATHING PATTERN - Cardiovascular Exam Cardiovascular Exam: REGULAR RHYTHM, +S1, +S2. absent: Murmur - GI/Abdominal Exam GI & Abdominal Exam: Soft, Normal Bowel Sounds. absent: Tenderness Assessment and Plan (1) Chronic congestive heart failure Status: Acute (2) Dyspnea Status: Acute (3) Hypertension Status: Acute (4) Renal failure Status: Acute (5) Elevated troponin Status: Acute (6) Anemia Status: Acute
[2017-07-17] MEDS: Albuterol 0.083% Inhal Sol (2.5 mg/3 mL) UD INH PRN ×3 (06:15→14:10)
--- NOTE | 2017-07-17 08:53 | CON ---
DATE: 07/16/[address] Holly Garcia to Dr. Tobin Witt. REASON FOR CONSULTATION: I was called for GI consultation by the admitting medical team. The patient is seen and fully examined on 07/16/2017 as requested by the admitting MD. The entire chart is reviewed, including but not limited to most recent lab and radiology study results, current and the previous medication lists, current and the previous medical events, allergy to medication list as well as all the available current and the previous medical records. Case was discussed at length with the staff. This is a 56-year-old male who was admitted to the hospital with a complaint of re-exacerbation of bronchial asthma with intermittent periods of mild chills and fever, but severe mid epigastric and lower abdominal pain with periods of nausea and vomiting on and off. No reported active bleeding. No palpitation. No recent change of bowel movement habit. After being admitted to the hospital, the patient was found to have low hemoglobin of 7.8, hematocrit 23.4. Increased blood glucose level initially to 147, increased BUN 62, creatinine elevated at 4.8. PAST MEDICAL HISTORY: Including, but not limited to: 1. Bronchial asthma, congestive heart failure, borderline hypertension. 2 Sleep apnea. 3 Peptic ulcer disease. 4. diagnosed anemia, for which the patient is receiving iron apparently. It has to be mentioned that the patient never had upper or lower endoscopy before according to his statement. FAMILY HISTORY: Unknown. SOCIAL HISTORY: Denied any recent history of cigarette smoking or alcohol intake. CURRENT MEDICATIONS: See medication list for review. ALLERGY TO MEDICATION: Unclear. PHYSICAL EXAMINATION GENERAL: A 56-year-old male, appears to be somewhat anxious and mildly restless. Afebrile, awake, alert and oriented. VITAL SIGNS: Pulse of 86, respiratory rate 20 to 22, blood pressure of 134/80. HEENT: Showed pale dry oral mucosal membrane. Nonicteric sclerae. LUNGS: Scattered crepitation with decreased air entry at bases. HEART: Positive S1 and S2. LYMPH NODES: No lymphadenitis or lymphadenopathy. ABDOMEN: Soft, with mild tenderness. Bowel sounds are present. No mass or organomegaly. No rebound tenderness or guarding. RECTAL: Deferred due to the patient's clinical status. EXTREMITIES: No significant clubbing or cyanosis, but mild lower extremity edematous changes. Peripheral pulses are present bilaterally. NEUROLOGIC: No reported new neurological deficits, sensory or motor. IMPRESSION: 1. Severe anemia. 2. Known history of hypertension, congestive heart failure, and probable coronary artery disease. 3. Bronchial asthma with bronchitis by history. 4. Anemia, to rule out upper versus lower gastrointestinal blood loss versus occult malignancy. 5. Sleep apnea by history. SUGGESTIONS: 1. Agree with your plan. 2. Consider any underlying abnormal hyperglycemia. 3. Proton pump inhibitors. 4. Cancer markers including CEA and the TSA. 5. Sectional abdominal and pelvic CAT scan. 6. Upper endoscopy, it has to be mentioned that the patient was taken to the endoscopy room; however, anesthesia nursing examined, myself, contacted cardiology, consulted Dr. as well as admitting MD Dr. Witt, they prefer to hold on any aggressive GI workup until full cardiology evaluation to take place. 7. Guaiac of the stool daily x3. 8. Further recommendations to follow. Thank you for letting me participate in your patient's case management. Holly Garcia MD
[2017-07-17] MEDS: Pantoprazole 40 mg EC Tab PO SCH (09:37)
[2017-07-17] MEDS: Enoxaparin 30 mg Syringe SC SCH (09:41)
[2017-07-17 12:21] LABS: HEMOGLOBIN 8.4 g/dL (12.0-18.0); MEAN CELL VOLUME 85.6 fL (80.0-94.0); MEAN CORPUSCULAR HEMOGLOBIN 29.5 pg (27.0-31.0); MEAN CORPUSCULAR HGB CONC 34.5 g/dL (33.0-37.0); MEAN PLATELET VOLUME 9.7 fL (7.2-11.7); RBC 2.83 Mil/uL (4.40-5.90); RED CELL DISTRIBUTION WIDTH 14.1 % (11.5-14.5); WHITE BLOOD COUNT 11.5 K/uL (4.8-10.8)
[2017-07-17 13:46] LABS: CK-MB 1.23 ng/mL (0.0-3.38); TROPONIN I 0.127 ng/mL (0.00-0.120)
--- NOTE | 2017-07-17 14:50 | CP.PCM.CON ---
History of Present Illness - History of Present Illness History of Present Illness: pt is seen and examined, full consult is dictated #[id number] 1. 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 anemai 3.chf 4.asthma 5.htn 6.dm check 24 hr up,cr ,cr cl, pth intact add lasix 40 mg q 8 hr x 3 dosese then 40 mg bid po add epogen [id number] units sc 3 x aweek venous mapping of left ue vascular surgery for av fistula check pth, po4 level Past Patient History - Past Medical History & Family History Past Medical History?: Yes - Past Social History Smoking Status: Former Smoker - CARDIAC Hx Congestive Heart Failure: Yes Hx Hypertension: Yes - PULMONARY Hx Asthma: Yes Hx Pneumonia: Yes - RENAL Other/Comment: kidney insufficiency - MUSCULOSKELETAL/RHEUMATOLOGICAL Hx Back Pain: Yes Hx Falls: No Hx Herniated Disk: Yes - PSYCHIATRIC Hx Substance Use: No - SURGICAL HISTORY Hx Appendectomy: Yes (1982) - ANESTHESIA Hx Anesthesia: Yes Hx Anesthesia Reactions: Yes Hx Malignant Hyperthermia: No Has any member of the family had a problem w/ anesthesia?: No Meds Allergies/Adverse Reactions: Allergies Allergy/AdvReac Type Severity Reaction Status Date / Time No Known Allergies Allergy Verified 07/15/17 08:02 - Medications Medications: Current Medications Albuterol Sulfate (Albuterol 0.083% Inhal Madie (2.5 Mg/3 Ml) Ud) 2.5 mg INH RQ6 [facility] Carvedilol (Coreg) 12.5 mg PO BID [facility] Last Admin: 07/17/17 09:36 Dose: 12.5 mg Clonidine HCl (Catapres) 0.1 mg PO Q8 [facility] Last Admin: 07/17/17 05:16 Dose: 0.1 mg Enoxaparin Sodium (Lovenox) 30 mg SC DAILY [facility] Last Admin: 07/17/17 09:41 Dose: 30 mg Furosemide (Lasix) 40 mg IVP DAILY [facility] Guaifenesin (Mucinex La) 600 mg PO BID [facility] Hydralazine HCl (Apresoline) 50 mg PO Q8 [facility] Last Admin: 07/17/17 05:16 Dose: 50 mg Montelukast Sodium (Singulair) 10 mg PO DAILY [facility] Last Admin: 07/17/17 09:28 Dose: 10 mg Pantoprazole Sodium (Protonix Ec Tab) 40 mg PO DAILY [facility] Last Admin: 07/17/17 09:37 Dose: 40 mg Rosuvastatin Calcium (Crestor) 10 mg PO HS [facility] Last Admin: 07/16/17 22:30 Dose: 10 mg Results - Vital Signs Recent Vital Signs: Last Vital Signs Temp 98.7 F 07/17/17 09:24 Pulse 80 07/17/17 09:24 Resp 20 07/17/17 09:24 BP 134/73 07/17/17 09:37 Pulse Ox 98 07/17/17 09:24 - Labs Result Diagrams: 07/17/17 12:16 07/15/17 08:49 Labs: Laboratory Results - last 24 hr 07/15/17 07/16/17 07/16/17 21:09 13:57 17:05 WBC RBC Hgb Hct MCV MCH MCHC RDW Plt Count MPV Differential Comment POC Glucose (mg/dL) 152 H Iron TIBC % Saturation Total Creatine Kinase CK-MB (Mass) Troponin I Alpha Fetoprotein 1.1 Blood Type O POSITIVE Antibody Screen Negative 07/16/17 07/16/17 07/17/17 19:28 21:34 06:50 WBC RBC Hgb Hct MCV MCH MCHC RDW Plt Count MPV Differential Comment POC Glucose (mg/dL) 147 H 171 H Iron 44 L TIBC 230 L % Saturation 19 L Total Creatine Kinase CK-MB (Mass) Troponin I Alpha Fetoprotein Blood Type Antibody Screen 07/17/17 07/17/17 07/17/17 11:48 12:16 12:16 WBC 11.5 H RBC 2.83 L Hgb 8.4 L Hct 24.2 L MCV 85.6 MCH 29.5 MCHC 34.5 RDW 14.1 Plt Count 169 MPV 9.7 Differential Comment POC Glucose (mg/dL) 130 H Iron TIBC % Saturation Total Creatine Kinase 78 CK-MB (Mass) 1.23 Troponin I 0.1270 H* Alpha Fetoprotein Blood Type Antibody Screen
[2017-07-17] MEDS: guaiFENesin 600 mg ER Tab PO SCH (17:07)
[2017-07-17] MEDS ORDERED: Ferric Sodium Gluconat Complex 62.5 mg/5 ml Vial IVPB SCH (17:30)
[2017-07-17] MEDS: EPOETIN ALFA 10,000 UNIT/ML ML SC SCH (18:45)
--- NOTE | 2017-07-17 22:13 | PN ---
DATE: LOCATION: [facility], bed A. SUBJECTIVE: This is a 56-year-old male seen and examined in rounds, appeared to be awake, alert, oriented, post blood transfusion, without reported active bleeding. No chest pain, significant complaint of palpitation or shortness of breath. The entire chart is reviewed including, but not limited to, most recent lab and radiology study results, current and the previous medication lists, current and the previous medical events. Case discussed with the staff. Today's lab showed leukocytosis of 11.5 with low hemoglobin of 8.4, low hematocrit of 24.2, but normal platelet count with elevated troponin , less than before. His CEA level was 5.8, elevated, but normal CA19-9. PHYSICAL EXAMINATION GENERAL: A 56-year-old male, appeared to be awake, alert and oriented, mildly anxious. VITAL SIGNS: Afebrile with pulse of 74, respiratory rate 20-22, blood pressure 138/68. HEENT: Showed mildly pale dry oral mucoid membrane, nonicteric sclerae. LUNGS: Scattered crepitation. Decreased air entry at bases. HEART: Positive S1 and S2. ABDOMEN: Soft. Bowel sounds are present with mild generalized tenderness. No mass or organomegaly. No rebound tenderness or guarding. EXTREMITIES: Without significant edema, clubbing or cyanosis. NEUROLOGIC: No reported new neurological deficits, sensory or motor. LABORATORY DATA: It has to mentioned that the patient BUN and creatinine had been elevated before with elevated blood glucose level. IMPRESSION: 1. Anemia, to rule out gastrointestinal blood loss, upper versus lower versus occult gastrointestinal malignancy, keeping in mind the patient had elevated CEA level of 5.8. 2. Renal insufficiency. 3. Increased troponin level, to rule out silent myocardial infarction. 4. Known history of hypertension, congestive heart failure with coronary artery disease. 5. Bronchial asthma by history with bronchitis. 6. Known history of sleep apnea. SUGGESTION: 1. Continue current management. 2. No aggressive GI workup in the meantime until the patient is more cleared by the instrument calibrator for possible upper and lower endoscopy. Otherwise, close observation to follow. Holly Garcia MD [facility] # [id number]
[2017-07-17] MEDS: Albuterol 0.083% Inhal Sol (2.5 mg/3 mL) UD INH SCH (22:20)
--- NOTE | 2017-07-18 00:17 | CP.PCM.PN ---
Subjective - Date & Time of Evaluation Date of Evaluation: 07/17/17 Time of Evaluation: 17:00 - Subjective Subjective: Pt seen and examined, coughing and wheezing, s/p blood transfusion he is feeling better Objective - Vital Signs/Intake and Output Vital Signs (last 24 hours): Temp Pulse Resp BP Pulse Ox 98.5 F 77 18 155/77 H 98 07/17/17 20:09 07/17/17 20:09 07/17/17 20:09 07/17/17 21:14 07/17/17 15:16 Intake and Output: 07/17/17 07/18/17 18:59 06:59 Intake Total 30 50 Balance 30 50 - Medications Medications: Current Medications Albuterol Sulfate (Albuterol 0.083% Inhal Madie (2.5 Mg/3 Ml) Ud) 2.5 mg INH RQ6 [facility] Last Admin: 07/17/17 22:20 Dose: 2.5 mg Carvedilol (Coreg) 12.5 mg PO BID [facility] Last Admin: 07/17/17 17:07 Dose: 12.5 mg Clonidine HCl (Catapres) 0.1 mg PO Q8 [facility] Last Admin: 07/17/17 21:14 Dose: 0.1 mg Enoxaparin Sodium (Lovenox) 30 mg SC DAILY [facility] Last Admin: 07/17/17 09:41 Dose: 30 mg Epoetin Ant (Procrit) 10,000 unit SC TTS [facility] Last Admin: 07/17/17 18:45 Dose: 10,000 unit Ferric Sodium Gluconate Complex (Ferrlecit) 125 mg IVPB DAILY [facility] Stop: 07/25/17 17:31 Last Admin: 07/17/17 20:16 Dose: 125 mg Furosemide (Lasix) 40 mg IVP Q8 [facility] Last Admin: 07/17/17 21:14 Dose: 40 mg Guaifenesin (Mucinex La) 600 mg PO BID [facility] Last Admin: 07/17/17 17:07 Dose: 600 mg Hydralazine HCl (Apresoline) 50 mg PO Q8 [facility] Last Admin: 07/17/17 21:14 Dose: 50 mg Montelukast Sodium (Singulair) 10 mg PO DAILY [facility] Last Admin: 07/17/17 09:28 Dose: 10 mg Pantoprazole Sodium (Protonix Ec Tab) 40 mg PO DAILY [facility] Last Admin: 07/17/17 09:37 Dose: 40 mg Rosuvastatin Calcium (Crestor) 10 mg PO HS [facility] Last Admin: 07/17/17 21:14 Dose: 10 mg Vitamin B Complex/Vit C/Folic Acid (Nephro-Berry) 1 tab PO 0800 [facility] - Labs Labs: 07/17/17 12:16 07/15/17 08:49 PT 11.7 SECONDS (9.7-12.2) 07/16/17 13:57 INR 1.0 07/16/17 13:57 APTT 30 SECONDS (21-34) 07/16/17 13:57 - Constitutional Appears: No Acute Distress - Head Exam Head Exam: ATRAUMATIC, NORMAL INSPECTION, NORMOCEPHALIC - Eye Exam Eye Exam: EOMI, Normal appearance, PERRL Pupil Exam: NORMAL ACCOMODATION, PERRL - Respiratory Exam Respiratory Exam: Decreased Breath Sounds, Wheezes - Cardiovascular Exam Cardiovascular Exam: REGULAR RHYTHM, +S1, +S2. absent: Murmur - GI/Abdominal Exam GI & Abdominal Exam: Soft, Normal Bowel Sounds. absent: Tenderness - Neurological Exam Neurological Exam: Alert, Awake, CN II-XII Intact, Normal Gait, Oriented x3 - Psychiatric Exam Psychiatric exam: Normal Affect, Normal Mood Assessment and Plan (1) Chronic congestive heart failure Status: Acute (2) Dyspnea Status: Acute (3) Hypertension Status: Acute (4) Renal failure Status: Acute (5) Elevated troponin Status: Acute (6) Anemia Status: Acute
[2017-07-18] MEDS: Albuterol 0.083% Inhal Sol (2.5 mg/3 mL) UD INH SCH ×4 (01:49→19:50)
--- NOTE | 2017-07-18 01:55 | RAD ---
EXAM: XR Chest, 1 View CLINICAL HISTORY: 56 years old, male; Signs and symptoms; Shortness of breath; Additional info: SOB TECHNIQUE: Frontal view of the chest. COMPARISON: No relevant prior studies available. FINDINGS: Lungs: There is bilateral perihilar haziness with more dense opacities in the right lung representing asymmetric edema versus pneumonia. Pleural space: Possible bilateral pleural effusions. No pneumothorax. Heart: Enlargement of cardiac silhouette. Mediastinum: Unremarkable. Bones/joints: Unremarkable. IMPRESSION: 1. There is bilateral perihilar haziness with more dense opacities in the right lung representing asymmetric edema versus pneumonia. Close clinical surveillance the patient's respiratory status is recommended. 2. Possible bilateral pleural effusions.
[2017-07-18] MEDS ORDERED: MethylPREDNISolone 40 mg Vial IVP ONE (03:16)
--- NOTE | 2017-07-18 04:43 | CON ---
DATE: LOCATION: Room 671, bed A. REQUESTING PHYSICIAN: Tobin Witt MD. REASON FOR EVALUATION: Increased BUN and creatinine and for further evaluation. HISTORY OF PRESENT ILLNESS: Mr. Mehta is a 56-year-old obese male with a past medical history significant for hypertension for about 20 years, diabetes for about 15 years and history of CHF, asthma and questionable diabetic retinopathy, who was recently discharged from the [facility] center, was admitted through the emergency room with chief complaints of cough and shortness of breath for 5 days. Denies any fever. Denies any chest pain. Denies any palpitation. Denies any nausea, vomiting and diarrhea. The patient has complaints of poor appetite. The patient also complains of swelling of the legs for the last few weeks. PAST MEDICAL HISTORY: Significant for diabetes for 15 years, hypertension for about 20 years, CHF, asthma, chronic kidney disease and proteinuria. PAST SURGICAL HISTORY: Status post appendectomy 20 to 30 years ago. ALLERGIES: NO KNOWN DRUG ALLERGIES. SOCIAL HISTORY: Denies any smoking. The patient does drink beer on weekends and no drug abuse. PERSONAL HISTORY: Single and he has three children. FAMILY HISTORY: Mother 3 years ago with coronary artery disease. Father is alive, 78 years old, healthy and he has 5 brothers and 3 are suffering with diabetes. No sisters. CURRENT MEDICATIONS: Include as follows, albuterol inhaler, hydralazine 50 mg p.o. q.8 hours, clonidine 0.1 mg p.o. q.8 hours, Coreg 12.5 mg p.o. b.i.d., Lasix 40 mg IV daily, Lovenox 30 mg subcu daily, Mucinex 610 mg p.o. b.i.d., Protonix 40 mg daily, montelukast 10 mg p.o. daily. REVIEW OF SYSTEMS: Significant for shortness of breath, cough and edema of the legs, slight wheezing. All other review of systems are reviewed and negative as per HPI. PHYSICAL EXAMINATION: GENERAL: Mr. Mehta is a 56-year-old male, moderately built, moderately nourished, obese, not in distress. VITAL SIGNS: Blood pressure 172/92, pulse 77, respirations 20, temperature 98.4, saturation 98%. Height 5 feet 6 inches and weight is 275 pounds. BMI 44.4. HEENT: Pupils are normal, reactive to light and accommodation. Conjunctivae are pale. Sclerae anicteric. Tongue is moist. Trachea is midline. LUNGS: Symmetric on both sides. Bilateral breath sounds present. Occasional basilar crackles present. CARDIOVASCULAR SYSTEM: [place] at the fifth intercostal space in midclavicular line. S1, S2 audible. No murmur or gallop. ABDOMEN: Protuberant, soft, tympanic. No guarding. No rigidity. No hepatosplenomegaly. CENTRAL NERVOUS SYSTEM: The patient is alert, awake, oriented x3. Nonfocal neuro examination. Cranial nerves II through XII grossly intact. Sensory and motor system is within normal limits. EXTREMITIES: No cyanosis, no clubbing. The patient has 1+ edema in both lower extremities. LABORATORY DATA: Include as follows, as of 07/17/2017, WBC 11.5, hemoglobin 8.4, hematocrit is 24.2, platelets 169. CPK 78, CK-MB is 1.23 and troponin is 0.127, on admission troponin 0.19 and second set 0.185 and third set 0.156 and fourth one is 0.143 and the fifth one is 0.127. The other reports are iron is 44, TIBC is 230, saturation is 19. As of 07/15/2017, D-dimer is 945 and sodium is 135, potassium is 4, chloride 101, CO2 of 25, BUN 62, creatinine 4.8, glucose is 147, calcium is 8.0. Total bili 0.5, AST 19, ALT 23, alkaline phosphatase 53. As of 07/15/2017, urinalysis, yellow, hazy, pH 5, specific gravity 1.014, protein 3+, glucose 2+, ketones negative, blood negative, nitrites negative, bilirubin negative, urobilinogen normal, leukocyte esterase negative, WBC 5, RBC 4, squamous epithelial cells less than 1, bacteria rare. Influenza A and B antibodies negative. Stool for occult blood is also negative. Alpha-fetoprotein is 1.1 as of 07/16/2017. CEA is slightly elevated at 5.8. CA19-9 is less than 1.4. Other reports, chest x-ray as of 07/15/2017, impression, diffuse increased interstitial lung markings suggestive for venous congestion versus edema versus interstitial infiltrates, clinical correlation, and mild cardiomegaly. ASSESSMENT: In summary, Mr. Mehta is a 56-year-old obese male with history of longstanding hypertension, diabetes, congestive heart failure, asthma, proteinuria, with elevated proBNP of 2040, elevated troponin, and chest x-ray consistent with congestive heart failure. 1. Chronic kidney disease stage IV to V, most likely secondary to diabetic nephropathy, cannot rule out underlying chronic glomerulonephritis such as focal segmental glomerulosclerosis. 2. Anemia secondary to renal failure, cannot rule out underlying iron-deficiency anemia. 3. Congestive heart failure. 4. Hypertension. 5. Diabetes. PLAN: Check 24 hour urine protein, creatinine, creatinine clearance, and will check PTH intact level and Lasix. Increase Lasix to 40 mg IV q.8h. for 24-48 hours and then decrease to 40 mg b.i.d. Also follow up with vascular surgery for AV fistula placement and check venous mapping. We will also Venofer 100 mg daily x5 doses and also add Epogen 10,000 units subcu 3 times a week. We will follow with you. Thank you for allowing me to participate in your patient's care. Talya Vogel MD
--- NOTE | 2017-07-18 07:38 | CP.PCM.PN ---
Subjective - Date & Time of Evaluation Date of Evaluation: 07/18/17 Time of Evaluation: 07:00 - Subjective Subjective: Patient has presented to the hospital with sob, had prbc yesterday, cxr reviewed , scattered dense opacities in the clinical setting are likely from asymmetrical edema rather infection. Patient is on 2lit nc, and breathing has improved since presentation. D/w patient about time for stating hd due to his symptoms. D/w PMD decided to start abx empirically due to severe comorbidity. Rocephin iv, doxycycline iv, renal dose tamiflu, ordered procalcitonin, and rapid influenza test. Objective - Vital Signs/Intake and Output Vital Signs (last 24 hours): Temp Pulse Resp BP Pulse Ox 98.5 F 82 24 162/81 H 97 07/18/17 02:40 07/18/17 02:40 07/18/17 02:40 07/18/17 06:08 07/18/17 02:40 Intake and Output: 07/18/17 07/18/17 06:59 18:59 Intake Total 50 Balance 50 - Medications Medications: Current Medications Albuterol Sulfate (Albuterol 0.083% Inhal Madie (2.5 Mg/3 Ml) Ud) 2.5 mg INH RQ6 [facility] Last Admin: 07/18/17 01:49 Dose: Not Given Budesonide (Pulmicort Respules) 0.5 mg INH RQ12 [facility] Carvedilol (Coreg) 12.5 mg PO BID [facility] Last Admin: 07/17/17 17:07 Dose: 12.5 mg Clonidine HCl (Catapres) 0.1 mg PO Q8 [facility] Last Admin: 07/18/17 06:08 Dose: 0.1 mg Enoxaparin Sodium (Lovenox) 30 mg SC DAILY [facility] Last Admin: 07/17/17 09:41 Dose: 30 mg Epoetin Ant (Procrit) 10,000 unit SC TTS [facility] Last Admin: 07/17/17 18:45 Dose: 10,000 unit Ferric Sodium Gluconate Complex (Ferrlecit) 125 mg IVPB DAILY [facility] Stop: 07/25/17 17:31 Last Admin: 07/17/17 20:16 Dose: 125 mg Furosemide (Lasix) 40 mg IVP Q8 [facility] Last Admin: 07/18/17 06:08 Dose: 40 mg Guaifenesin (Mucinex La) 600 mg PO BID [facility] Last Admin: 07/17/17 17:07 Dose: 600 mg Hydralazine HCl (Apresoline) 50 mg PO Q8 [facility] Last Admin: 07/18/17 06:08 Dose: 50 mg Ceftriaxone Sodium (Rocephin Iv 1 Gm Duplex) 50 mls @ 100 mls/hr IVPB DAILY [facility] Doxycycline Hyclate 100 mg/ (Sodium Chloride) 100 mls @ 100 mls/hr IVPB Q12H [facility] Montelukast Sodium (Singulair) 10 mg PO DAILY [facility] Last Admin: 07/17/17 09:28 Dose: 10 mg Oseltamivir Phosphate (Tamiflu Cap) 30 mg PO DAILY [facility] Stop: 07/23/17 07:30 Pantoprazole Sodium (Protonix Ec Tab) 40 mg PO DAILY [facility] Last Admin: 07/17/17 09:37 Dose: 40 mg Rosuvastatin Calcium (Crestor) 10 mg PO HS [facility] Last Admin: 07/17/17 21:14 Dose: 10 mg Vitamin B Complex/Vit C/Folic Acid (Nephro-Berry) 1 tab PO 0800 [facility] - Labs Labs: 07/17/17 12:16 07/15/17 08:49 PT 11.7 SECONDS (9.7-12.2) 07/16/17 13:57 INR 1.0 07/16/17 13:57 APTT 30 SECONDS (21-34) 07/16/17 13:57
[2017-07-18] MEDS: Budesonide 0.5 mg/2 ml Inhal Susp UD INH SCH ×2 (09:02→19:50)
[2017-07-18] MEDS: Ferric Sodium Gluconat Complex 125 MG in Sodium Chloride 0.9% 100 ML IVPB SCH (09:40)
[2017-07-18] MEDS: guaiFENesin 600 mg ER Tab PO SCH ×2 (09:54→17:28)
[2017-07-18] MEDS: Pantoprazole 40 mg EC Tab PO SCH (09:54)
[2017-07-18] MEDS: Enoxaparin 30 mg Syringe SC SCH (09:54)
[2017-07-18] MEDS: Oseltamivir 6 MG/ML PO SCH (10:03)
[2017-07-18] MEDS: Multivitamin Vitamin B Complex (Nephro-Vite) Tab PO SCH (10:30)
--- NOTE | 2017-07-18 14:11 | PN ---
DATE: LOCATION: [facility], bed A. SUBJECTIVE: This is a 56-year-old male, seen and examined in rounds with intermittent period of shortness of breath, difficulty to breath, with nausea and mild dyspepsia. No reported active bleeding and the patient previously had episodes of vomiting with mid epigastric pain. The entire chart is reviewed including but not limited to the most recent lab and radiology study results, current and previous medication list, current and previous medical events, and today's blood glucose level reported to be 248 with normal phosphorus. Rest is still pending. Chest x-ray done early today, report is seen, with possible pulmonary edema versus pneumonia, and possible bilateral pleural effusion, please see official report. The entire chart is reviewed, sase discussed with the staff. PHYSICAL EXAMINATION GENERAL: A 56-year-old male, with low grade fever. VITAL SIGNS: Fever of 99.1, pulse of 82, respiratory rate 22 to 24, blood pressure of 150/62. HEENT: Showed dry mildly pale oral mucosal membrane. Nonicteric sclerae. LUNGS: Scattered crepitation, decreased air entry at bases. HEART: Positive S1 and S2. ABDOMEN: Soft, with mild generalized tenderness. No mass or organomegaly. No rebound tenderness or guarding. RECTAL: Deferred. EXTREMITIES: Significant clubbing, cyanosis, or edema. NEUROLOGIC: No reported new neurological deficits, sensory or motor. IMPRESSION: 1. Re-exacerbation of peptic ulcer disease. 2. Possible pneumonia versus mild pulmonary edema, most likely congestive heart failure. 3. Renal insufficiency. 4. Anemia, the possibility of occult GI malignancy versus GI blood loss, upper versus lower . 5. Known history of bronchial asthma, known history of sleep apnea. 6. History of congestive heart failure, hypertension with coronary artery disease. 7. Increased troponin level, to rule out possible myocardial infarction. SUGGESTION: 1. Agree with your plan. 2. Conservative treatment. No need for aggressive GI workup in the meantime until the patient is more stable clinically. Holly Garcia MD
--- NOTE | 2017-07-18 17:45 | CP.PCM.PN ---
Subjective - Date & Time of Evaluation Date of Evaluation: 07/18/17 Time of Evaluation: 17:44 - Subjective Subjective: pt is seen and examined, follow up consult is dictated #[id number] consider vascular surgery consult for av fistula Objective - Vital Signs/Intake and Output Vital Signs (last 24 hours): Temp Pulse Resp BP Pulse Ox 97.9 F 79 20 164/90 H 95 07/18/17 15:34 07/18/17 16:00 07/18/17 15:34 07/18/17 17:29 07/18/17 15:34 Intake and Output: 07/18/17 07/18/17 06:59 18:59 Intake Total 50 Balance 50 - Medications Medications: Current Medications Albuterol Sulfate (Albuterol 0.083% Inhal Madie (2.5 Mg/3 Ml) Ud) 2.5 mg INH RQ6 [facility] Last Admin: 07/18/17 14:12 Dose: 2.5 mg Budesonide (Pulmicort Respules) 0.5 mg INH RQ12 [facility] Last Admin: 07/18/17 09:02 Dose: Not Given Carvedilol (Coreg) 12.5 mg PO BID [facility] Last Admin: 07/18/17 17:29 Dose: 12.5 mg Clonidine HCl (Catapres) 0.1 mg PO Q8 [facility] Last Admin: 07/18/17 14:37 Dose: 0.1 mg Enoxaparin Sodium (Lovenox) 30 mg SC DAILY [facility] Last Admin: 07/18/17 09:54 Dose: 30 mg Epoetin Ant (Procrit) 10,000 unit SC TTS [facility] Last Admin: 07/17/17 18:45 Dose: 10,000 unit Furosemide (Lasix) 40 mg IVP Q8 [facility] Last Admin: 07/18/17 14:37 Dose: 40 mg Guaifenesin (Mucinex La) 600 mg PO BID [facility] Last Admin: 07/18/17 17:28 Dose: 600 mg Hydralazine HCl (Apresoline) 75 mg PO Q8 [facility] Last Admin: 07/18/17 14:37 Dose: 75 mg Ceftriaxone Sodium 1 gm/ (Sodium Chloride) 100 mls @ 100 mls/hr IVPB DAILY [facility] Last Admin: 07/18/17 09:55 Dose: 100 mls/hr Doxycycline Hyclate 100 mg/ (Sodium Chloride) 100 mls @ 100 mls/hr IVPB Q12H [facility] Last Admin: 07/18/17 09:00 Dose: 100 mls/hr Ferric Sodium Gluconate Complex 125 mg/ Sodium Chloride 110 mls @ 110 mls/hr IVPB DAILY [facility] Stop: 07/25/17 10:01 Last Admin: 07/18/17 09:40 Dose: 110 mls/hr Montelukast Sodium (Singulair) 10 mg PO DAILY [facility] Last Admin: 07/18/17 09:55 Dose: 10 mg Oseltamivir Phosphate (Tamiflu Susp) 30 mg PO DAILY [facility] Stop: 07/23/17 07:30 Last Admin: 07/18/17 10:03 Dose: 30 mg Pantoprazole Sodium (Protonix Ec Tab) 40 mg PO DAILY [facility] Last Admin: 07/18/17 09:54 Dose: 40 mg Rosuvastatin Calcium (Crestor) 10 mg PO HS [facility] Last Admin: 07/17/17 21:14 Dose: 10 mg Vitamin B Complex/Vit C/Folic Acid (Nephro-Berry) 1 tab PO 0800 [facility] Last Admin: 07/18/17 10:30 Dose: 1 tab - Labs Labs: 07/17/17 12:16 07/15/17 08:49 PT 11.7 SECONDS (9.7-12.2) 07/16/17 13:57 INR 1.0 07/16/17 13:57 APTT 30 SECONDS (21-34) 07/16/17 13:57
[2017-07-18 20:13] LABS: U CREAT 24HOUR URINE 1807.9 mg/24hr (800-2800); URINE CREATININE 35.8 mg/dL
[2017-07-18 20:36] LABS: URINE 24 HOUR TOTAL PROTEIN 6211.5 mg/24hr (42-225)
--- NOTE | 2017-07-18 22:00 | CP.PCM.PN ---
Subjective - Date & Time of Evaluation Date of Evaluation: 07/18/17 Time of Evaluation: 17:00 - Subjective Subjective: Pt seen and eaxamined, is coughing, wheezing, short of breath, on lasix and antibiotics now Objective - Vital Signs/Intake and Output Vital Signs (last 24 hours): Temp Pulse Resp BP Pulse Ox 97.9 F 79 20 168/85 H 95 07/18/17 15:34 07/18/17 16:00 07/18/17 15:34 07/18/17 21:18 07/18/17 15:34 - Medications Medications: Current Medications Albuterol Sulfate (Albuterol 0.083% Inhal Madie (2.5 Mg/3 Ml) Ud) 2.5 mg INH RQ6 [facility] Last Admin: 07/18/17 19:50 Dose: Not Given Budesonide (Pulmicort Respules) 0.5 mg INH RQ12 [facility] Last Admin: 07/18/17 19:50 Dose: Not Given Carvedilol (Coreg) 12.5 mg PO BID [facility] Last Admin: 07/18/17 17:29 Dose: 12.5 mg Clonidine HCl (Catapres) 0.1 mg PO Q8 [facility] Last Admin: 07/18/17 21:19 Dose: 0.1 mg Enoxaparin Sodium (Lovenox) 30 mg SC DAILY [facility] Last Admin: 07/18/17 09:54 Dose: 30 mg Epoetin Ant (Procrit) 10,000 unit SC TTS [facility] Last Admin: 07/17/17 18:45 Dose: 10,000 unit Furosemide (Lasix) 40 mg IVP Q8 [facility] Last Admin: 07/18/17 21:18 Dose: 40 mg Guaifenesin (Mucinex La) 600 mg PO BID [facility] Last Admin: 07/18/17 17:28 Dose: 600 mg Hydralazine HCl (Apresoline) 75 mg PO Q8 [facility] Last Admin: 07/18/17 21:18 Dose: 75 mg Ceftriaxone Sodium 1 gm/ (Sodium Chloride) 100 mls @ 100 mls/hr IVPB DAILY [facility] Last Admin: 07/18/17 09:55 Dose: 100 mls/hr Doxycycline Hyclate 100 mg/ (Sodium Chloride) 100 mls @ 100 mls/hr IVPB Q12H [facility] Last Admin: 07/18/17 21:19 Dose: 100 mls/hr Ferric Sodium Gluconate Complex 125 mg/ Sodium Chloride 110 mls @ 110 mls/hr IVPB DAILY [facility] Stop: 07/25/17 10:01 Last Admin: 07/18/17 09:40 Dose: 110 mls/hr Montelukast Sodium (Singulair) 10 mg PO DAILY [facility] Last Admin: 07/18/17 09:55 Dose: 10 mg Oseltamivir Phosphate (Tamiflu Susp) 30 mg PO DAILY [facility] Stop: 07/23/17 07:30 Last Admin: 07/18/17 10:03 Dose: 30 mg Pantoprazole Sodium (Protonix Ec Tab) 40 mg PO DAILY [facility] Last Admin: 07/18/17 09:54 Dose: 40 mg Rosuvastatin Calcium (Crestor) 10 mg PO HS [facility] Last Admin: 07/18/17 21:18 Dose: 10 mg Vitamin B Complex/Vit C/Folic Acid (Nephro-Berry) 1 tab PO 0800 [facility] Last Admin: 07/18/17 10:30 Dose: 1 tab - Labs Labs: 07/17/17 12:16 07/15/17 08:49 PT 11.7 SECONDS (9.7-12.2) 07/16/17 13:57 INR 1.0 07/16/17 13:57 APTT 30 SECONDS (21-34) 07/16/17 13:57 - Constitutional Appears: No Acute Distress - Head Exam Head Exam: ATRAUMATIC, NORMAL INSPECTION, NORMOCEPHALIC - Eye Exam Eye Exam: EOMI, Normal appearance, PERRL Pupil Exam: NORMAL ACCOMODATION, PERRL - Respiratory Exam Respiratory Exam: Decreased Breath Sounds, Rales - Cardiovascular Exam Cardiovascular Exam: REGULAR RHYTHM, +S1, +S2. absent: Murmur - GI/Abdominal Exam GI & Abdominal Exam: Soft, Normal Bowel Sounds. absent: Tenderness Assessment and Plan (1) Chronic congestive heart failure Status: Acute (2) Dyspnea Status: Acute (3) Hypertension Status: Acute (4) Renal failure Status: Acute (5) Elevated troponin Status: Acute (6) Anemia Status: Acute - Assessment and Plan (Free Text) Plan: , cxr reviewed, scattered dense opacities in the clinical setting are likely from asymmetrical edema rather infection. Patient is on 2lit nc, and breathing has improved since presentation. started abx empirically due to severe comorbidity. Rocephin iv, doxycycline iv, renal dose tamiflu, ordered procalcitonin, and rapid influenza test.
--- NOTE | 2017-07-18 23:45 | CARD ---
APPROVED REPORT EXAM: Two-dimensional and M-mode echocardiogram with Doppler and color Doppler. Other Information Quality : GoodRhythm : INDICATION Dyspnea Cardiac Disease: CAD ELEVATED TROPONIN, RENAL FAILURE RISK FACTORS Hypertension Obesity 2D DIMENSIONS IVSd1.2 (0.7-1.1cm)LVDd6.5 (3.9-5.9cm) PWd1.4 (0.7-1.1cm)LVDs5.4 (2.5-4.0cm) FS (%) 16.3 %LVEF (%)33.4 (>50%) M-Mode DIMENSIONS RVDd1.13 (2.1-3.2cm)Left Atrium (MM)2.90 (2.5-4.0cm) IVSd1.21 (0.7-1.1cm)Aortic Root3.50 (2.2-3.7cm) LVDd6.55 (4.0-5.6cm)Aortic Cusp Exc.1.99 (1.5-2.0cm) PWd1.52 (0.7-1.1cm)FS (%) 23 % LVDs5.03 (2.0-3.8cm)LVEF (%)45 (>50%) Mitral Valve MV E Ornfbzqe072.9cm/sMV A Rwunzjxd904.1cm/sE/A ratio0.9 TDI E/Lateral E'0.0E/Medial E'0.0 Tricuspid Valve TR Peak Zojchphc257va/sTR Peak Gr.[id number] LEFT VENTRICLE The Left Ventricle is mildly dilated. There is borderline to mild concentric left ventricular hypertrophy. The systolic function is mildly to moderately impaired. LVEF 40-45% There is global hypokinesis of the left ventricle. Transmitral Doppler flow pattern is Grade I-abnormal relaxation pattern. No left ventricle thrombus noted on this study. There is no ventricular septal defect visualized. There is no left ventricular aneurysm. There is no mass noted in the left ventricle. RIGHT VENTRICLE The right ventricle is normal size. There is normal right ventricular wall thickness. The right ventricular systolic function is normal. ATRIA The left atrium size is normal. The right atrium size is normal. The interatrial septum is intact with no evidence for an atrial septal defect. AORTIC VALVE The aortic valve is calcified but opens well. The aortic valve is mildly sclerotic. There is trace aortic regurgitation. There is no aortic valvular stenosis. There is no aortic valvular vegetation. MITRAL VALVE Mitral annular calcification is mild. There is no evidence of mitral valve prolapse. There is no mitral valve stenosis. Mitral regurgitation is trace to mild. TRICUSPID VALVE The tricuspid valve is normal in structure and function. There is mild tricuspid regurgitation. There is no tricuspid valve prolapse or vegetation. There is no tricuspid valve stenosis. PULMONIC VALVE The pulmonary valve is normal in structure and function. There is trace pulmonic valvular regurgitation. There is no pulmonic valvular stenosis. GREAT VESSELS The aortic root is normal in size. The ascending aorta is normal in size. The pulmonary artery is normal. The IVC is normal in size and collapses >50% with inspiration. PERICARDIAL EFFUSION The pericardium appears normal. There is no pleural effusion. <Conclusion> The Left Ventricle is mildly dilated. There is borderline to mild concentric left ventricular hypertrophy. The systolic function is mildly to moderately impaired. LVEF 40-45% There is global hypokinesis of the left ventricle. Transmitral Doppler flow pattern is Grade I-abnormal relaxation pattern. The aortic valve is calcified but opens well. The aortic valve is mildly sclerotic. Mitral annular calcification is mild. Mitral regurgitation is trace to mild. There is mild tricuspid regurgitation. There is trace pulmonic valvular regurgitation.
[2017-07-19] MEDS: Albuterol 0.083% Inhal Sol (2.5 mg/3 mL) UD INH SCH ×4 (01:55→19:58)
--- NOTE | 2017-07-19 03:21 | PN ---
DATE: 07/18/2017 FOLLOWUP RENAL CONSULTATION LOCATION: Patient is located in room 671, bed 1. SUBJECTIVE: Mr. Mehta is a 56-year-old obese male with a history of longstanding diabetes, hypertension, asthma, chronic kidney disease, proteinuria, was admitted with shortness of breath and bilateral leg swelling. The patient is being treated for CHF and possible COPD, asthma exacerbation. Patient is feeling better and denies any chest pain or palpitation. Denies any fever or cough. No abdominal pain. No nausea, vomiting, diarrhea. PHYSICAL EXAMINATION: VITAL SIGNS: As follows, blood pressure 161/86, pulse 71, respirations 20, temperature 97.9, saturation 95%. Height 5 feet 6 inches and weight is 275 pounds. GENERAL: Mr. Mehta is a 56-year-old obese male, moderately obese, well-built, well-nourished, not in acute distress. HEENT: Pupils normal and reactive to light and accommodation. Conjunctivae pink. Sclerae anicteric. Tongue is moist and trachea is midline. LUNGS: Symmetric on both sides. Bilateral breath sounds present. Clear on auscultation. CARDIOVASCULAR SYSTEM: [place] at the fifth intercostal space, midclavicular line. S1 and S2 audible. No murmur or gallop. ABDOMEN: Normal in appearance, soft, tympanic. No guarding. No rigidity. No hepatosplenomegaly. CENTRAL VENOUS SYSTEM: Patient is alert, a week oriented x3. Nonfocal neuro examination. Cranial nerves II through XII grossly intact. Sensory and motor system is within normal limits. EXTREMITIES: No cyanosis, no clubbing. The patient has trace edema in both lower extremities. MEDICATIONS: His current medications include as follows: Albuterol inhaler, hydralazine 75 mg p.o. q.8 hours, and clonidine 0.1 mg p.o. q.8 hours, and Rocephin 1 g daily and Coreg 12.5 mg p.o. b.i.d. and doxycycline 100 mg p.o. q.12 hours and ferrous gluconate 125 mg IV daily and Lasix 40 mg IV q.8 hours and Lovenox 30 mg subcu daily, Mucinex and Nephro-Berry 1 tablet daily, Procrit 10,000 units three times a week and Protonix 40 mg p.o. daily and Pulmicort 0.5 mg inhaler q.12 hours, and Singulair 10 mg p.o. daily and Tamiflu 30 mg p.o. daily. LABORATORY DATA: Include as follows: As of 07/08/2017, phosphorus is 4.5 and procalcitonin 0.22. A 24-hour urine volume is 5050 and a 24-hour urine creatinine is 1807 mg and 24-hour urine protein is 6211.5 mg. Influenza A and B antibody is negative. ASSESSMENT: In summary, Mr. Mehta is a 56-year-old male, obese with history of longstanding hypertension, diabetes, proteinuria, chronic kidney disease, asthma, was admitted with shortness of breath and being treated for congestive heart failure and exacerbation of asthma. 1. Chronic kidney disease, stage IV, most likely secondary to diabetic nephropathy, cannot rule out underlying chronic glomerulonephritis such as focal and segmental glomerulosclerosis. 2. Hypertension. 3. Congestive heart failure. 4. Anemia. PLAN: Continue IV iron. Continue Procrit. Continue Nephro-Berry and patient will benefit from a creation of AV fistula at this time. Discussed with the patient, agreed for the procedure, consider a Vascular Surgery consult for AV fistula placement as an inpatient. We will follow with you. Thank you for allowing me to participate in your patient's care. Talya Vogel MD
--- NOTE | 2017-07-19 05:15 | CARD ---
APPROVED REPORT EKG Measurement Heart [id number] <Conclusion> Normal sinus rhythm Nonspecific T wave abnormality Prolonged QT Abnormal ECG
[2017-07-19] MEDS: Multivitamin Vitamin B Complex (Nephro-Vite) Tab PO SCH (07:40)
[2017-07-19] MEDS: Budesonide 0.5 mg/2 ml Inhal Susp UD INH SCH ×2 (07:56→19:58)
[2017-07-19] MEDS ORDERED: Ferric Sodium Gluconat Complex 62.5 mg/5 ml Vial ONE (09:55)
[2017-07-19] MEDS: Enoxaparin 30 mg Syringe SC SCH (10:32)
[2017-07-19] MEDS: Pantoprazole 40 mg EC Tab PO SCH (10:33)
[2017-07-19] MEDS: guaiFENesin 600 mg ER Tab PO SCH ×2 (10:33→17:14)
[2017-07-19] MEDS: Oseltamivir 6 MG/ML PO SCH (10:36)
[2017-07-19] MEDS: Ferric Sodium Gluconat Complex 125 MG in Sodium Chloride 0.9% 100 ML IVPB SCH (10:37)
--- NOTE | 2017-07-19 13:17 | PN ---
DATE: LOCATION: [facility], bed A. SUBJECTIVE: This is a 56-year-old male, seen and examined in rounds early today with intermittent period of some shortness of breath with mild generalized weakness and malaise as well as dyspepsia. No reported active bleeding. The entire chart is reviewed including but not limited to the most recent lab and radiology study results, current and the previous medication list, current and the previous medical events and today's labs showed blood glucose level of 282. Rest of the lab is still pending, but reported recently to have elevated troponin level. His complaint of abdominal pain is less at no reported active bleeding. PHYSICAL EXAMINATION: GENERAL: A 56-year-old male. VITAL SIGNS: Afebrile with pulse of 72, respiratory rate 20 to 22, blood pressure 150/84. HEENT: Showed mildly pale dry oral mucous membrane. Nonicteric sclerae. LUNGS: Few scattered crepitation. Decreased air entry at bases. HEART: Positive S1 and S2. ABDOMEN: Soft. Bowel sounds are present. No mass or organomegaly. No rebound tenderness or guarding. EXTREMITIES: With slight lower extremity edematous changes. No clubbing or cyanosis. NEUROLOGIC: No reported new neurological deficits, sensory or motor. No focal new reported neurological deficit. Peripheral pulses are positive bilaterally. The patient had been receiving iron supplement through the IV. Cardiology evaluation is impressive. IMPRESSION: 1. Anemia. 2. Re-exacerbation of peptic ulcer disease. 3. Possible pneumonia verus pulmonary edema, mild with congestive heart failure as per Radiology study results. 4. Renal insufficiency. 5. Known history of bronchial asthma, sleep apnea, hypertension with coronary artery disease. 6. Elevated troponin level with possible recent myocardial infarction. SUGGESTION: 1. Agree with your plan. 2. Conservative treatment in the meantime and following up cancer markers. 3. Due to the patient's clinical presentation and elevated troponin level, careful evaluation and treatment to follow until the patient is more stable clinically from the Cardiology point of view. Holly Garcia MD
[2017-07-19 14:46] LABS: BASO % 0.3 % (0.0-2.0); EOS # 0.1 K/uL (0.0-0.7); EOS % 1.1 % (0.0-4.0); LYMPH # 0.7 K/uL (1.0-4.3); LYMPH % 5.3 % (20.0-40.0); MEAN CELL VOLUME 86.1 fL (80.0-94.0); MEAN CORPUSCULAR HEMOGLOBIN 28.7 pg (27.0-31.0); MEAN CORPUSCULAR HGB CONC 33.3 g/dL (33.0-37.0); MONO # 1.2 K/uL (0.0-0.8); MONO % 9.5 % (0.0-10.0); NEUT # 10.6 K/uL (1.8-7.0); NEUT % 83.8 % (50.0-75.0); PLATELET COUNT 179 K/uL (130-400); RBC 3.14 Mil/uL (4.40-5.90); RED CELL DISTRIBUTION WIDTH 14.4 % (11.5-14.5); WHITE BLOOD COUNT 12.7 K/uL (4.8-10.8)
[2017-07-19 15:17] LABS: ALB/GLOB RATIO 1.1 (1.0-2.1); ALBUMIN 3.5 g/dL (3.5-5.0); CALCIUM 7.6 mg/dl (8.6-10.4)
--- NOTE | 2017-07-19 16:20 | CP.PCM.PN ---
Subjective - Date & Time of Evaluation Date of Evaluation: 07/19/17 Time of Evaluation: 12:00 - Subjective Subjective: mildly decreased systolic function on echo, no needs for ICD, neg recent cath, aceI, ? renal failure no B Colleen with asthma, for fistula placement Objective - Vital Signs/Intake and Output Vital Signs (last 24 hours): Temp Pulse Resp BP Pulse Ox 98.3 F 68 20 161/91 H 96 07/19/17 08:18 07/19/17 08:18 07/19/17 08:18 07/19/17 14:36 07/19/17 08:18 - Medications Medications: Current Medications Albuterol Sulfate (Albuterol 0.083% Inhal Madie (2.5 Mg/3 Ml) Ud) 2.5 mg INH RQ6 [facility] Last Admin: 07/19/17 13:11 Dose: 2.5 mg Budesonide (Pulmicort Respules) 0.5 mg INH RQ12 [facility] Last Admin: 07/19/17 07:56 Dose: 0.5 mg Carvedilol (Coreg) 12.5 mg PO BID [facility] Last Admin: 07/19/17 10:33 Dose: 12.5 mg Clonidine HCl (Catapres) 0.1 mg PO Q8 [facility] Last Admin: 07/19/17 14:35 Dose: 0.1 mg Enoxaparin Sodium (Lovenox) 30 mg SC DAILY [facility] Last Admin: 07/19/17 10:32 Dose: 30 mg Epoetin Ant (Procrit) 10,000 unit SC TTS [facility] Last Admin: 07/17/17 18:45 Dose: 10,000 unit Furosemide (Lasix) 40 mg IVP Q8 [facility] Last Admin: 07/19/17 14:36 Dose: 40 mg Guaifenesin (Mucinex La) 600 mg PO BID [facility] Last Admin: 07/19/17 10:33 Dose: 600 mg Hydralazine HCl (Apresoline) 75 mg PO Q8 [facility] Last Admin: 07/19/17 14:35 Dose: 75 mg Ceftriaxone Sodium 1 gm/ (Sodium Chloride) 100 mls @ 100 mls/hr IVPB DAILY [facility] Last Admin: 07/19/17 10:32 Dose: 100 mls/hr Doxycycline Hyclate 100 mg/ (Sodium Chloride) 100 mls @ 100 mls/hr IVPB Q12H [facility] Last Admin: 07/19/17 08:06 Dose: 100 mls/hr Ferric Sodium Gluconate Complex 125 mg/ Sodium Chloride 110 mls @ 110 mls/hr IVPB DAILY [facility] Stop: 07/25/17 10:01 Last Admin: 07/19/17 10:37 Dose: 110 mls/hr Montelukast Sodium (Singulair) 10 mg PO DAILY [facility] Last Admin: 07/19/17 10:36 Dose: 10 mg Oseltamivir Phosphate (Tamiflu Susp) 30 mg PO DAILY [facility] Stop: 07/23/17 07:30 Last Admin: 07/19/17 10:36 Dose: 1 mg Pantoprazole Sodium (Protonix Ec Tab) 40 mg PO DAILY [facility] Last Admin: 07/19/17 10:33 Dose: 40 mg Rosuvastatin Calcium (Crestor) 10 mg PO HS [facility] Last Admin: 07/18/17 21:18 Dose: 10 mg Vitamin B Complex/Vit C/Folic Acid (Nephro-Berry) 1 tab PO 0800 [facility] Last Admin: 07/19/17 07:40 Dose: 1 tab - Labs Labs: 07/19/17 14:34 07/19/17 14:34 PT 11.7 SECONDS (9.7-12.2) 07/16/17 13:57 INR 1.0 07/16/17 13:57 APTT 30 SECONDS (21-34) 07/16/17 13:57 - Constitutional Appears: Non-toxic - Head Exam Head Exam: ATRAUMATIC - Eye Exam Eye Exam: EOMI - ENT Exam ENT Exam: Mucous Membranes Moist - Neck Exam Neck Exam: absent: Lymphadenopathy, Thyromegaly - Respiratory Exam Respiratory Exam: Clear to Ausculation Bilateral. absent: Rales - Cardiovascular Exam Cardiovascular Exam: REGULAR RHYTHM, Murmur - GI/Abdominal Exam GI & Abdominal Exam: Normal Bowel Sounds. absent: Organomegaly - Rectal Exam Rectal Exam: Deferred - Extremities Exam Extremities Exam: Normal Capillary Refill. absent: Calf Tenderness - Neurological Exam Neurological Exam: Alert - Psychiatric Exam Psychiatric exam: Normal Affect - Skin Skin Exam: Dry Assessment and Plan (1) Shortness of breath Status: Acute (2) Elevated troponin Status: Acute (3) Renal failure Status: Acute
--- NOTE | 2017-07-19 18:17 | CP.PCM.CON ---
History of Present Illness - History of Present Illness History of Present Illness: The patient is a 56 year old male with past medical history of CHF, diabetes mellitus, CKD on hemodialysis with history of proteinuria, asthma, sleep apnea, hypertension, and peptic ulcer disease who presents to the ED for asthma exacerbation. He complained of respiratory distress for the week prior to admission and saw his PMD the day before admission. His PMD prescribed him a new inhaler. CXR, EKG, and echocardiogram were ordered and GI was consulted to evaluate patient's abdominal pain. Patient received blood transfusion for low hemoglobin. Elevated troponins could have been due to renal failure and/or a demand ischemia (unlikely as EKG did not show ST segment changes). Nephrology has also been managing the patient and vascular surgery was consulted for the placement of an AV fistula. Empiric antibiotics were started by the primary team due to patients severe comorbidities. The patient was seen and examined for pulmonary consult for shortness of breath. He is complaining of mild SOB, cough, and wheezing. Review of systems: General: +fatigue, denies weakness Cardiovascular: denies chest pain, denies palpitations Pulmonary: +SOB, +cough, +sputum production, denies wheezing, denies hemoptysis Social history: The patient denies a smoking history and any illicit drug use. He states has a beer on the weekends. Medical history: * CHF * Diabetes mellitus * CKD on hemodialysis with history of proteinuria * Asthma * Sleep apnea * Hypertension * Peptic ulcer disease Allergies: no known allergies Surgical history: appendectomy 20-30 years ago Family history: * Mother 3 years ago; had CAD * Father is alive and well at 78 years old * 3 out of his 5 male siblings suffer from diabetes Medications: * Albuterol inhaler * Hydralazine 50 mg po q8h * Clonidine 0.1 mg po q8h * Coreg 12.5 mg po bid * Lasix 40 mg IV daily * Lovenox 30 mg subq daily * Mucinex 610 mg po bid * Protonix 40 mg daily * Montelukast 10 mg po daily Vitals signs: Temperature: 98.2F Pulse: 75 bpm Blood pressure: 153/76 mm Hg Respiratory rate: 20 brpm Oxygen saturation: 100% on 3L O2 nasal canula Physical examination: General: no acute distress, atraumatic, normocephalic Cardiovascular: RRR, +s1, +s2, +s3 Pulmonary: decreased breath sounds, no wheezing/rales/rhonchi today Labs: 07/20/2017 Microbiology: * Blood cultures negative x2 Assessment & Plan Shortness of breath * The patient's shortness of breath is likely of multifactorial etiology due to pulmonary vascular congestion secondary to CHF, asthma exacerbation, sleep apnea , and obesity hypoventilation syndrome. * EKG: Revealed normal sinus rhythm, nonspecific T wave abnormalities, and a prolonged QT interval. * CXR 07/15/2017: Revealed diffuse increased interstitial lung markings suggestive for venous congestion versus edema versus interstitial infiltrates with mild cardiomegaly. * Echocardiogram: Revealed mild dilation of the left ventricle, borderline to mild concentric LVH, mild to moderately impaired systolic function, LVEF 45-45% , global hypokinesis of the LV, Grade I abnormal relaxation pattern on transmitral doppler, calcified/sclerotic aortic valve, mild annular calcification, trace to mild MR, mild TR, and trace [place]. * CXR 07/18/2017: Revealed bilateral perihilar haziness with more dense opacities in the right lung representing asymmetric edema versus pneumonia. Close clinical surveillance of the patient's respiratory status is recommended, possible bilateral pleural effusions. * Continue cervedilol, clonidine, furosemide, hydralazine, and rosuvastatin to optimize patient's CHF and hypertension * Continue albuterol inhalter, budesonide, guaifenesin, and montelukast for asthma exacerbation * Consider sleep study and BiPAP/CPAP for patient's sleep apnea * Continue empiric antibiotics due to severe comorbidities Past Patient History - Past Medical History & Family History Past Medical History?: Yes - Past Social History Smoking Status: Former Smoker - CARDIAC Hx Congestive Heart Failure: Yes Hx Hypertension: Yes - PULMONARY Hx Asthma: Yes Hx Pneumonia: Yes - RENAL Other/Comment: kidney insufficiency - MUSCULOSKELETAL/RHEUMATOLOGICAL Hx Back Pain: Yes Hx Falls: No Hx Herniated Disk: Yes - PSYCHIATRIC Hx Substance Use: No - SURGICAL HISTORY Hx Appendectomy: Yes (1982) - ANESTHESIA Hx Anesthesia: Yes Hx Anesthesia Reactions: Yes Hx Malignant Hyperthermia: No Has any member of the family had a problem w/ anesthesia?: No Meds Allergies/Adverse Reactions: Allergies Allergy/AdvReac Type Severity Reaction Status Date / Time No Known Allergies Allergy Verified 07/15/17 08:02 - Medications Medications: Current Medications Albuterol Sulfate (Albuterol 0.083% Inhal Madie (2.5 Mg/3 Ml) Ud) 2.5 mg INH RQ6 [facility] Last Admin: 07/19/17 13:11 Dose: 2.5 mg Budesonide (Pulmicort Respules) 0.5 mg INH RQ12 [facility] Last Admin: 07/19/17 07:56 Dose: 0.5 mg Carvedilol (Coreg) 12.5 mg PO BID [facility] Last Admin: 07/19/17 17:15 Dose: 12.5 mg Clonidine HCl (Catapres) 0.1 mg PO Q8 [facility] Last Admin: 07/19/17 14:35 Dose: 0.1 mg Enoxaparin Sodium (Lovenox) 30 mg SC DAILY [facility] Last Admin: 07/19/17 10:32 Dose: 30 mg Epoetin Ant (Procrit) 10,000 unit SC TTS [facility] Last Admin: 07/17/17 18:45 Dose: 10,000 unit Furosemide (Lasix) 40 mg IVP Q8 [facility] Last Admin: 07/19/17 14:36 Dose: 40 mg Guaifenesin (Mucinex La) 600 mg PO BID [facility] Last Admin: 07/19/17 17:14 Dose: 600 mg Hydralazine HCl (Apresoline) 75 mg PO Q8 [facility] Last Admin: 07/19/17 14:35 Dose: 75 mg Ceftriaxone Sodium 1 gm/ (Sodium Chloride) 100 mls @ 100 mls/hr IVPB DAILY [facility] Last Admin: 07/19/17 10:32 Dose: 100 mls/hr Doxycycline Hyclate 100 mg/ (Sodium Chloride) 100 mls @ 100 mls/hr IVPB Q12H [facility] Last Admin: 07/19/17 08:06 Dose: 100 mls/hr Ferric Sodium Gluconate Complex 125 mg/ Sodium Chloride 110 mls @ 110 mls/hr IVPB DAILY [facility] Stop: 07/25/17 10:01 Last Admin: 07/19/17 10:37 Dose: 110 mls/hr Montelukast Sodium (Singulair) 10 mg PO DAILY [facility] Last Admin: 07/19/17 10:36 Dose: 10 mg Pantoprazole Sodium (Protonix Ec Tab) 40 mg PO DAILY [facility] Last Admin: 07/19/17 10:33 Dose: 40 mg Rosuvastatin Calcium (Crestor) 10 mg PO HS [facility] Last Admin: 07/18/17 21:18 Dose: 10 mg Vitamin B Complex/Vit C/Folic Acid (Nephro-Berry) 1 tab PO 0800 [facility] Last Admin: 07/19/17 07:40 Dose: 1 tab Results - Vital Signs Recent Vital Signs: Last Vital Signs Temp 98.2 F 07/19/17 15:45 Pulse 74 07/19/17 16:34 Resp 22 07/19/17 15:45 BP 150/80 07/19/17 17:15 Pulse Ox 95 07/19/17 15:45 - Labs Result Diagrams: 07/19/17 14:34 07/20/17 06:32 Labs: Laboratory Results - last 24 hr 07/18/17 07/18/17 07/18/17 08:22 19:36 20:26 WBC RBC Hgb Hct MCV MCH MCHC RDW Plt Count MPV Neut % (Auto) Lymph % (Auto) [place] % (Auto) Eos % (Auto) Baso % (Auto) Neut # Lymph # [place] # Eos # Baso # Sodium Potassium Chloride Carbon Dioxide Anion Gap BUN Creatinine Est GFR ( Amer) Est GFR (Non-Af Amer) POC Glucose (mg/dL) Random Glucose Calcium Total Bilirubin AST ALT Alkaline Phosphatase Total Protein Albumin Globulin Albumin/Globulin Ratio PTH Intact Whole Molec 140 H Urine Collection Time 24 24 Urine Total Volume 5050 5050 Ur Creatinine 24 Hour 1807.9 Ur Protein 24 Hr Calc 6211.5 H 07/18/17 07/19/17 07/19/17 22:14 06:58 11:27 WBC RBC Hgb Hct MCV MCH MCHC RDW Plt Count MPV Neut % (Auto) Lymph % (Auto) [place] % (Auto) Eos % (Auto) Baso % (Auto) Neut # Lymph # [place] # Eos # Baso # Sodium Potassium Chloride Carbon Dioxide Anion Gap BUN Creatinine Est GFR ( Amer) Est GFR (Non-Af Amer) POC Glucose (mg/dL) 222 H 145 H 282 H Random Glucose Calcium Total Bilirubin AST ALT Alkaline Phosphatase Total Protein Albumin Globulin Albumin/Globulin Ratio PTH Intact Whole Molec Urine Collection Time Urine Total Volume Ur Creatinine 24 Hour Ur Protein 24 Hr Calc 07/19/17 07/19/17 07/19/17 14:34 14:34 16:21 WBC 12.7 H RBC 3.14 L Hgb 9.0 L Hct 27.1 L MCV 86.1 MCH 28.7 MCHC 33.3 RDW 14.4 Plt Count 179 MPV 10.0 Neut % (Auto) 83.8 H Lymph % (Auto) 5.3 L [place] % (Auto) 9.5 Eos % (Auto) 1.1 Baso % (Auto) 0.3 Neut # 10.6 H Lymph # 0.7 L [place] # 1.2 H Eos # 0.1 Baso # 0.0 Sodium 132 Potassium 3.7 Chloride 96 L Carbon Dioxide 23 Anion Gap 17 BUN 88 H Creatinine 5.7 H Est GFR ( Amer) 13 Est GFR (Non-Af Amer) 10 POC Glucose (mg/dL) 149 H Random Glucose 211 H Calcium 7.6 L Total Bilirubin 0.4 AST 15 L D ALT 24 Alkaline Phosphatase 52 Total Protein 6.7 Albumin 3.5 Globulin 3.1 Albumin/Globulin Ratio 1.1 PTH Intact Whole Molec Urine Collection Time Urine Total Volume Ur Creatinine 24 Hour Ur Protein 24 Hr Calc
--- NOTE | 2017-07-19 19:13 | CP.PCM.PN ---
Subjective - Date & Time of Evaluation Date of Evaluation: 07/19/17 Time of Evaluation: 19:12 - Subjective Subjective: pt is seen and examined, follow up consult is dictated #[id number] Objective - Vital Signs/Intake and Output Vital Signs (last 24 hours): Temp Pulse Resp BP Pulse Ox 98.2 F 74 22 150/80 95 07/19/17 15:45 07/19/17 16:34 07/19/17 15:45 07/19/17 17:15 07/19/17 15:45 - Medications Medications: Current Medications Albuterol Sulfate (Albuterol 0.083% Inhal Madie (2.5 Mg/3 Ml) Ud) 2.5 mg INH RQ6 [facility] Last Admin: 07/19/17 13:11 Dose: 2.5 mg Budesonide (Pulmicort Respules) 0.5 mg INH RQ12 [facility] Last Admin: 07/19/17 07:56 Dose: 0.5 mg Carvedilol (Coreg) 12.5 mg PO BID [facility] Last Admin: 07/19/17 17:15 Dose: 12.5 mg Clonidine HCl (Catapres) 0.1 mg PO Q8 [facility] Last Admin: 07/19/17 14:35 Dose: 0.1 mg Enoxaparin Sodium (Lovenox) 30 mg SC DAILY [facility] Last Admin: 07/19/17 10:32 Dose: 30 mg Epoetin Ant (Procrit) 10,000 unit SC TTS [facility] Last Admin: 07/17/17 18:45 Dose: 10,000 unit Furosemide (Lasix) 40 mg IVP Q8 [facility] Last Admin: 07/19/17 14:36 Dose: 40 mg Guaifenesin (Mucinex La) 600 mg PO BID [facility] Last Admin: 07/19/17 17:14 Dose: 600 mg Hydralazine HCl (Apresoline) 75 mg PO Q8 [facility] Last Admin: 07/19/17 14:35 Dose: 75 mg Ceftriaxone Sodium 1 gm/ (Sodium Chloride) 100 mls @ 100 mls/hr IVPB DAILY [facility] Last Admin: 07/19/17 10:32 Dose: 100 mls/hr Doxycycline Hyclate 100 mg/ (Sodium Chloride) 100 mls @ 100 mls/hr IVPB Q12H [facility] Last Admin: 07/19/17 08:06 Dose: 100 mls/hr Ferric Sodium Gluconate Complex 125 mg/ Sodium Chloride 110 mls @ 110 mls/hr IVPB DAILY [facility] Stop: 07/25/17 10:01 Last Admin: 07/19/17 10:37 Dose: 110 mls/hr Montelukast Sodium (Singulair) 10 mg PO DAILY [facility] Last Admin: 07/19/17 10:36 Dose: 10 mg Pantoprazole Sodium (Protonix Ec Tab) 40 mg PO DAILY [facility] Last Admin: 07/19/17 10:33 Dose: 40 mg Rosuvastatin Calcium (Crestor) 10 mg PO HS [facility] Last Admin: 07/18/17 21:18 Dose: 10 mg Vitamin B Complex/Vit C/Folic Acid (Nephro-Berry) 1 tab PO 0800 [facility] Last Admin: 07/19/17 07:40 Dose: 1 tab - Labs Labs: 07/19/17 14:34 07/19/17 14:34 PT 11.7 SECONDS (9.7-12.2) 07/16/17 13:57 INR 1.0 07/16/17 13:57 APTT 30 SECONDS (21-34) 07/16/17 13:57
[2017-07-19 19:34] LABS: EOSINOPHIL 2 % (0-4); LYMPHOCYTE 7 % (20-40); MONOCYTE 7 % (0-10); NEUTROPHIL 84 % (50-75); PLATELET ESTIMATE NORMAL (NORMAL); TOTAL CELLS COUNTED 100
[2017-07-19 19:35] LABS: MICROCYTOSIS SLIGHT
[2017-07-20] MEDS: Albuterol 0.083% Inhal Sol (2.5 mg/3 mL) UD INH SCH ×4 (01:22→20:31)
[2017-07-20 07:19] LABS: CALCIUM 7.4 mg/dl (8.6-10.4)
[2017-07-20] MEDS: Budesonide 0.5 mg/2 ml Inhal Susp UD INH SCH ×2 (08:09→20:32)
[2017-07-20] MEDS: Multivitamin Vitamin B Complex (Nephro-Vite) Tab PO SCH (08:29)
--- NOTE | 2017-07-20 09:33 | PN ---
DATE: FOLLOWUP RENAL CONSULTATION LOCATION: The patient is located in room 671, bed A. REQUESTING PHYSICIAN: Tobin Witt MD REASON FOR FOLLOWUP: CKD, proteinuria, for further evaluation. SUBJECTIVE: Mr. Mehta is a 56-year-old obese male with a past medical history significant for longstanding hypertension, diabetes, COPD, asthma, ex-smoker, who was admitted with chief complaints of cough, shortness of breath, and bilateral leg swelling. The patient still complains of cough and dyspnea on exertion. Denies any chest pain, palpitations. Denies any fever. Denies any nausea, vomiting, or diarrhea. Denies any abdominal pain. Less swelling of the legs. PHYSICAL EXAMINATION: VITAL SIGNS: Blood pressure 150/80, pulse about 74, respirations 22, temperature 98.2, saturation 95%. Height 5 feet 6 inches and weight is 275 pounds. GENERAL: Mr. Mehta is a 56-year-old male, well built, well nourished, not in distress. HEENT: Pupils are normal and reactive to light and accommodation. Conjunctivae pink. Sclerae are anicteric. Tongue is moist. Trachea is midline. LUNGS: Symmetric on both sides. Bilateral breath sounds are present. Clear on auscultation. CARDIOVASCULAR SYSTEM: [place] at the fifth intercostal space in midclavicular line. S1 and S2 audible. No murmur or gallop. ABDOMEN: Normal in appearance, soft, tympanic. No guarding. No rigidity. No hepatosplenomegaly. CENTRAL NERVOUS SYSTEM: The patient is alert, awake, and oriented x3. Nonfocal neurologic examination. Cranial nerves II through XII are grossly intact. Sensory and motor system is within normal limits. EXTREMITIES: No cyanosis. No clubbing. 1+ edema in both lower extremities. CURRENT MEDICATIONS: Include as follows, albuterol inhaler, hydralazine 75 mg p.o. q. 8 hours, clonidine 0.1 mg p.o. q. 8 hours, Rocephin 1 g IV daily, Coreg 12.5 mg p.o. b.i.d., Crestor 10 mg at bedtime, doxycycline 100 mg q. 12 hours, ferric gluconate 125 mg IV daily, Lasix 40 mg IV q. 8 hours, Mucinex 600 mg p.o. b.i.d., Nephro-Berry 1 tablet daily, Epogen 10,000 units 3 times a week, Protonix 40 mg daily, Pulmicort 0.5 mg inhaler q. 12 hours, and Singulair 10 mg p.o. daily. LABORATORY DATA: Include as follows, as of 07/19/2017, WBC 12.7, hematocrit 27.1, hemoglobin is 9, platelet 179. Sodium 132, potassium 3.7, chloride 96, CO2 of 23, BUN 98, creatinine 5.7, GFR is about 10-13 mL, glucose is 211, calcium 7.6. Total bili 0.4, AST 15, ALT 24, alkaline phosphatase 52, total protein 6.2, albumin is 3.5. A 24-hour urine volume as of 07/18/2017 is 5050 and 24-hour urine creatinine is 1807 mg and 24-hour urine protein is 6211 mg. Chest x-ray as of 07/18/2017, impression, there is bilateral perihilar haziness with more dense opacities in the right lung representing asymmetric edema versus pneumonia. Clinical surveillance of the patient's respiratory distress is recommended. Possible bilateral pleural effusions. ASSESSMENT AND PLAN: In summary, Mr. Mehta is a 56-year-old obese male patient with a history of longstanding hypertension, diabetes, asthma, congestive heart failure, chronic kidney disease, proteinuria, was admitted with shortness of breath and bilateral leg swelling, on intravenous antibiotics and also on diuretics. 1. Acute renal failure on chronic kidney disease, most likely secondary to vigorous diuresis for congestive heart failure. 2. Congestive heart failure. 3. Rule out exacerbation of asthma. 4. Anemia secondary to renal failure and iron deficiency. Continue intravenous iron and continue Procrit and continue Nephrocaps. Continue intravenous antibiotics as per the primary team. Follow up with Vascular Surgery for possible arteriovenous fistula placement as an inpatient. We will follow with you. Thank you for allowing me to participate in your patient's care. Talya Vogel MD
[2017-07-20] MEDS ORDERED: Potassium Chloride 20 mEq ER Tab PO ONE (10:00)
--- NOTE | 2017-07-20 10:31 | CP.PCM.PN ---
Subjective - Date & Time of Evaluation Date of Evaluation: 07/20/17 Time of Evaluation: 10:31 - Subjective Subjective: pt is seen and examined, follow up consult is dictated #[id number] Objective - Vital Signs/Intake and Output Vital Signs (last 24 hours): Temp Pulse Resp BP Pulse Ox 98.2 F 75 20 153/76 H 100 07/20/17 08:27 07/20/17 08:27 07/20/17 08:27 07/20/17 08:27 07/20/17 08:27 Intake and Output: 07/20/17 07/20/17 06:59 18:59 Intake Total 100 Balance 100 - Medications Medications: Current Medications Albuterol Sulfate (Albuterol 0.083% Inhal Madie (2.5 Mg/3 Ml) Ud) 2.5 mg INH RQ6 [facility] Last Admin: 07/20/17 08:09 Dose: 2.5 mg Budesonide (Pulmicort Respules) 0.5 mg INH RQ12 [facility] Last Admin: 07/20/17 08:09 Dose: 0.5 mg Carvedilol (Coreg) 12.5 mg PO BID [facility] Last Admin: 07/19/17 17:15 Dose: 12.5 mg Clonidine HCl (Catapres) 0.1 mg PO Q8 [facility] Last Admin: 07/20/17 05:15 Dose: 0.1 mg Enoxaparin Sodium (Lovenox) 30 mg SC DAILY [facility] Last Admin: 07/19/17 10:32 Dose: 30 mg Epoetin Ant (Procrit) 10,000 unit SC TTS [facility] Last Admin: 07/17/17 18:45 Dose: 10,000 unit Furosemide (Lasix) 40 mg IVP DAILY [facility] Guaifenesin (Mucinex La) 600 mg PO BID [facility] Last Admin: 07/19/17 17:14 Dose: 600 mg Hydralazine HCl (Apresoline) 75 mg PO Q8 [facility] Last Admin: 07/20/17 05:15 Dose: 75 mg Ceftriaxone Sodium 1 gm/ (Sodium Chloride) 100 mls @ 100 mls/hr IVPB DAILY [facility] Last Admin: 07/19/17 10:32 Dose: 100 mls/hr Doxycycline Hyclate 100 mg/ (Sodium Chloride) 100 mls @ 100 mls/hr IVPB Q12H [facility] Last Admin: 07/20/17 08:29 Dose: 100 mls/hr Ferric Sodium Gluconate Complex 125 mg/ Sodium Chloride 110 mls @ 110 mls/hr IVPB DAILY [facility] Stop: 07/25/17 10:01 Last Admin: 07/19/17 10:37 Dose: 110 mls/hr Montelukast Sodium (Singulair) 10 mg PO DAILY [facility] Last Admin: 07/19/17 10:36 Dose: 10 mg Pantoprazole Sodium (Protonix Ec Tab) 40 mg PO DAILY [facility] Last Admin: 07/19/17 10:33 Dose: 40 mg Rosuvastatin Calcium (Crestor) 10 mg PO HS [facility] Last Admin: 07/19/17 21:24 Dose: 10 mg Vitamin B Complex/Vit C/Folic Acid (Nephro-Berry) 1 tab PO 0800 [facility] Last Admin: 07/20/17 08:29 Dose: 1 tab - Labs Labs: 07/19/17 14:34 07/20/17 06:32 PT 11.7 SECONDS (9.7-12.2) 07/16/17 13:57 INR 1.0 07/16/17 13:57 APTT 30 SECONDS (21-34) 07/16/17 13:57
[2017-07-20] MEDS: Enoxaparin 30 mg Syringe SC SCH (10:39)
[2017-07-20] MEDS: guaiFENesin 600 mg ER Tab PO SCH ×2 (10:39→18:39)
[2017-07-20] MEDS: EPOETIN ALFA 10,000 UNIT/ML ML SC SCH (10:39)
[2017-07-20] MEDS: Pantoprazole 40 mg EC Tab PO SCH (10:46)
[2017-07-20] MEDS: Ferric Sodium Gluconat Complex 125 MG in Sodium Chloride 0.9% 100 ML IVPB SCH (12:54)
--- NOTE | 2017-07-20 13:28 | CP.PCM.PN ---
Subjective - Date & Time of Evaluation Date of Evaluation: 07/19/17 Time of Evaluation: 17:00 - Subjective Subjective: Pt seen and examined, he is less short of breath, coughing, wheezing, was seen by renal and cardiology, mildly decreased systolic function on echo, no needs for ICD, neg recent cath, aceI, ? renal failure no B Colleen with asthma, for fistula placement Objective - Vital Signs/Intake and Output Vital Signs (last 24 hours): Temp Pulse Resp BP Pulse Ox 98.2 F 75 20 153/76 H 100 07/20/17 08:27 07/20/17 08:27 07/20/17 08:27 07/20/17 10:38 07/20/17 08:27 Intake and Output: 07/20/17 07/20/17 06:59 18:59 Intake Total 100 Balance 100 - Medications Medications: Current Medications Albuterol Sulfate (Albuterol 0.083% Inhal Madie (2.5 Mg/3 Ml) Ud) 2.5 mg INH RQ6 [facility] Last Admin: 07/20/17 08:09 Dose: 2.5 mg Budesonide (Pulmicort Respules) 0.5 mg INH RQ12 [facility] Last Admin: 07/20/17 08:09 Dose: 0.5 mg Carvedilol (Coreg) 12.5 mg PO BID [facility] Last Admin: 07/20/17 10:37 Dose: 12.5 mg Clonidine HCl (Catapres) 0.1 mg PO Q8 [facility] Last Admin: 07/20/17 05:15 Dose: 0.1 mg Enoxaparin Sodium (Lovenox) 30 mg SC DAILY [facility] Last Admin: 07/20/17 10:39 Dose: 30 mg Epoetin Ant (Procrit) 10,000 unit SC TTS [facility] Last Admin: 07/20/17 10:39 Dose: 10,000 unit Furosemide (Lasix) 40 mg IVP DAILY [facility] Last Admin: 07/20/17 10:38 Dose: 40 mg Guaifenesin (Mucinex La) 600 mg PO BID [facility] Last Admin: 07/20/17 10:39 Dose: 600 mg Hydralazine HCl (Apresoline) 75 mg PO Q8 [facility] Last Admin: 07/20/17 05:15 Dose: 75 mg Ceftriaxone Sodium 1 gm/ (Sodium Chloride) 100 mls @ 100 mls/hr IVPB DAILY [facility] Last Admin: 07/20/17 10:28 Dose: 100 mls/hr Doxycycline Hyclate 100 mg/ (Sodium Chloride) 100 mls @ 100 mls/hr IVPB Q12H [facility] Last Admin: 07/20/17 08:29 Dose: 100 mls/hr Ferric Sodium Gluconate Complex 125 mg/ Sodium Chloride 110 mls @ 110 mls/hr IVPB DAILY [facility] Stop: 07/25/17 10:01 Last Admin: 07/20/17 12:54 Dose: 110 mls/hr Montelukast Sodium (Singulair) 10 mg PO DAILY [facility] Last Admin: 07/20/17 10:38 Dose: 10 mg Pantoprazole Sodium (Protonix Ec Tab) 40 mg PO DAILY [facility] Last Admin: 07/20/17 10:46 Dose: 40 mg Rosuvastatin Calcium (Crestor) 10 mg PO HS [facility] Last Admin: 07/19/17 21:24 Dose: 10 mg Vitamin B Complex/Vit C/Folic Acid (Nephro-Berry) 1 tab PO 0800 [facility] Last Admin: 07/20/17 08:29 Dose: 1 tab - Labs Labs: 07/19/17 14:34 07/20/17 06:32 PT 11.7 SECONDS (9.7-12.2) 07/16/17 13:57 INR 1.0 07/16/17 13:57 APTT 30 SECONDS (21-34) 07/16/17 13:57 - Constitutional Appears: No Acute Distress - Head Exam Head Exam: ATRAUMATIC, NORMAL INSPECTION, NORMOCEPHALIC - Eye Exam Eye Exam: EOMI, Normal appearance, PERRL Pupil Exam: NORMAL ACCOMODATION, PERRL - Respiratory Exam Respiratory Exam: Decreased Breath Sounds, Rales, Rhonchi - Cardiovascular Exam Cardiovascular Exam: REGULAR RHYTHM, +S1, +S2, Murmur Additional comments: S3 positive Assessment and Plan (1) Chronic congestive heart failure Status: Acute (2) Dyspnea Status: Acute (3) Hypertension Status: Acute (4) Renal failure Status: Acute (5) Elevated troponin Status: Acute (6) Anemia Assessment & Plan: due to CKD procrit monitor H and H pt may need dislysis Status: Acute
--- NOTE | 2017-07-20 13:28 | CP.PCM.PN ---
Subjective - Date & Time of Evaluation Date of Evaluation: 07/20/17 Time of Evaluation: 17:40 - Subjective Subjective: Pt seen and examined at bedside, still complains of shortness of breath on exertion, pt is on Iv Fe, for OR on , discussed the case with renal Objective - Vital Signs/Intake and Output Vital Signs (last 24 hours): Temp Pulse Resp BP Pulse Ox 98.2 F 75 20 153/76 H 100 07/20/17 08:27 07/20/17 08:27 07/20/17 08:27 07/20/17 10:38 07/20/17 08:27 Intake and Output: 07/20/17 07/20/17 06:59 18:59 Intake Total 100 Balance 100 - Medications Medications: Current Medications Albuterol Sulfate (Albuterol 0.083% Inhal Madie (2.5 Mg/3 Ml) Ud) 2.5 mg INH RQ6 [facility] Last Admin: 07/20/17 08:09 Dose: 2.5 mg Budesonide (Pulmicort Respules) 0.5 mg INH RQ12 [facility] Last Admin: 07/20/17 08:09 Dose: 0.5 mg Carvedilol (Coreg) 12.5 mg PO BID [facility] Last Admin: 07/20/17 10:37 Dose: 12.5 mg Clonidine HCl (Catapres) 0.1 mg PO Q8 [facility] Last Admin: 07/20/17 05:15 Dose: 0.1 mg Enoxaparin Sodium (Lovenox) 30 mg SC DAILY [facility] Last Admin: 07/20/17 10:39 Dose: 30 mg Epoetin Ant (Procrit) 10,000 unit SC TTS [facility] Last Admin: 07/20/17 10:39 Dose: 10,000 unit Furosemide (Lasix) 40 mg IVP DAILY [facility] Last Admin: 07/20/17 10:38 Dose: 40 mg Guaifenesin (Mucinex La) 600 mg PO BID [facility] Last Admin: 07/20/17 10:39 Dose: 600 mg Hydralazine HCl (Apresoline) 75 mg PO Q8 [facility] Last Admin: 07/20/17 05:15 Dose: 75 mg Ceftriaxone Sodium 1 gm/ (Sodium Chloride) 100 mls @ 100 mls/hr IVPB DAILY [facility] Last Admin: 07/20/17 10:28 Dose: 100 mls/hr Doxycycline Hyclate 100 mg/ (Sodium Chloride) 100 mls @ 100 mls/hr IVPB Q12H [facility] Last Admin: 07/20/17 08:29 Dose: 100 mls/hr Ferric Sodium Gluconate Complex 125 mg/ Sodium Chloride 110 mls @ 110 mls/hr IVPB DAILY [facility] Stop: 07/25/17 10:01 Last Admin: 07/20/17 12:54 Dose: 110 mls/hr Montelukast Sodium (Singulair) 10 mg PO DAILY [facility] Last Admin: 07/20/17 10:38 Dose: 10 mg Pantoprazole Sodium (Protonix Ec Tab) 40 mg PO DAILY [facility] Last Admin: 07/20/17 10:46 Dose: 40 mg Rosuvastatin Calcium (Crestor) 10 mg PO HS [facility] Last Admin: 07/19/17 21:24 Dose: 10 mg Vitamin B Complex/Vit C/Folic Acid (Nephro-Berry) 1 tab PO 0800 [facility] Last Admin: 07/20/17 08:29 Dose: 1 tab - Labs Labs: 07/19/17 14:34 07/20/17 06:32 PT 11.7 SECONDS (9.7-12.2) 07/16/17 13:57 INR 1.0 07/16/17 13:57 APTT 30 SECONDS (21-34) 07/16/17 13:57 - Constitutional Appears: No Acute Distress - Head Exam Head Exam: ATRAUMATIC, NORMAL INSPECTION, NORMOCEPHALIC - Eye Exam Eye Exam: EOMI, Normal appearance, PERRL Pupil Exam: NORMAL ACCOMODATION, PERRL - Respiratory Exam Respiratory Exam: Clear to Ausculation Bilateral, NORMAL BREATHING PATTERN - Cardiovascular Exam Cardiovascular Exam: REGULAR RHYTHM, +S1, +S2. absent: Murmur - GI/Abdominal Exam GI & Abdominal Exam: Soft, Normal Bowel Sounds. absent: Tenderness Assessment and Plan (1) Chronic congestive heart failure Status: Acute (2) Dyspnea Status: Acute (3) Hypertension Status: Acute (4) Renal failure Status: Acute (5) Elevated troponin Status: Acute (6) Anemia Status: Acute
--- NOTE | 2017-07-20 15:03 | CP.PCM.CON ---
History of Present Illness - History of Present Illness History of Present Illness: Vascular Surgery HPI: 56M presented to ED with SOB and wheezing x1 week. We are consulted for AVF placement. Has had appointments with Dr. Shaw to follow up with AVF placement, however he has been sick and unable to make his appointments (most recently today). + generalized weakness with dyspnea with minimal exertion, he has lack of energy denies any F/C, N/V/D, abd pain, chest pain, diaphoresis, extremity pain/numbness. Echo shows 40-45% LVEF. PMH: CHF, CKD, DM, Anemia, HTN, Asthma PSH: Appendectomy, cardiac cath SH: Former Smoker, no EtOH or drug use All: NKDA Meds: See MAR Review of Systems - Review of Systems All systems: reviewed and no additional remarkable complaints except (as per HPI ) Past Patient History - Past Medical History & Family History Past Medical History?: Yes - Past Social History Smoking Status: Former Smoker - CARDIAC Hx Congestive Heart Failure: Yes Hx Hypertension: Yes - PULMONARY Hx Asthma: Yes Hx Pneumonia: Yes - RENAL Other/Comment: kidney insufficiency - MUSCULOSKELETAL/RHEUMATOLOGICAL Hx Back Pain: Yes Hx Falls: No Hx Herniated Disk: Yes - PSYCHIATRIC Hx Substance Use: No - SURGICAL HISTORY Hx Appendectomy: Yes (1982) - ANESTHESIA Hx Anesthesia: Yes Hx Anesthesia Reactions: Yes Hx Malignant Hyperthermia: No Has any member of the family had a problem w/ anesthesia?: No Meds Allergies/Adverse Reactions: Allergies Allergy/AdvReac Type Severity Reaction Status Date / Time No Known Allergies Allergy Verified 07/15/17 08:02 - Medications Medications: Current Medications Albuterol Sulfate (Albuterol 0.083% Inhal Madie (2.5 Mg/3 Ml) Ud) 2.5 mg INH RQ6 [facility] Last Admin: 07/20/17 13:35 Dose: Not Given Budesonide (Pulmicort Respules) 0.5 mg INH RQ12 [facility] Last Admin: 07/20/17 08:09 Dose: 0.5 mg Carvedilol (Coreg) 12.5 mg PO BID [facility] Last Admin: 07/20/17 10:37 Dose: 12.5 mg Clonidine HCl (Catapres) 0.1 mg PO Q8 [facility] Last Admin: 07/20/17 13:54 Dose: 0.1 mg Enoxaparin Sodium (Lovenox) 30 mg SC DAILY [facility] Last Admin: 07/20/17 10:39 Dose: 30 mg Epoetin Ant (Procrit) 10,000 unit SC TTS [facility] Last Admin: 07/20/17 10:39 Dose: 10,000 unit Furosemide (Lasix) 40 mg IVP DAILY [facility] Last Admin: 07/20/17 10:38 Dose: 40 mg Guaifenesin (Mucinex La) 600 mg PO BID [facility] Last Admin: 07/20/17 10:39 Dose: 600 mg Hydralazine HCl (Apresoline) 75 mg PO Q8 [facility] Last Admin: 07/20/17 13:59 Dose: 75 mg Ceftriaxone Sodium 1 gm/ (Sodium Chloride) 100 mls @ 100 mls/hr IVPB DAILY [facility] Last Admin: 07/20/17 10:28 Dose: 100 mls/hr Doxycycline Hyclate 100 mg/ (Sodium Chloride) 100 mls @ 100 mls/hr IVPB Q12H [facility] Last Admin: 07/20/17 08:29 Dose: 100 mls/hr Ferric Sodium Gluconate Complex 125 mg/ Sodium Chloride 110 mls @ 110 mls/hr IVPB DAILY [facility] Stop: 07/25/17 10:01 Last Admin: 07/20/17 12:54 Dose: 110 mls/hr Montelukast Sodium (Singulair) 10 mg PO DAILY [facility] Last Admin: 07/20/17 10:38 Dose: 10 mg Pantoprazole Sodium (Protonix Ec Tab) 40 mg PO DAILY [facility] Last Admin: 07/20/17 10:46 Dose: 40 mg Rosuvastatin Calcium (Crestor) 10 mg PO HS [facility] Last Admin: 07/19/17 21:24 Dose: 10 mg Vitamin B Complex/Vit C/Folic Acid (Nephro-Berry) 1 tab PO 0800 [facility] Last Admin: 07/20/17 08:29 Dose: 1 tab Physical Exam - Constitutional Appears: Non-toxic, No Acute Distress - Head Exam Head Exam: ATRAUMATIC, NORMOCEPHALIC - Eye Exam Eye Exam: EOMI. absent: Scleral icterus - ENT Exam ENT Exam: Mucous Membranes Dry Additional comments: Trachea midline - Respiratory Exam Respiratory Exam: NORMAL BREATHING PATTERN. absent: Accessory Muscle Use, Respiratory Distress - Cardiovascular Exam Cardiovascular Exam: RRR, +S1, +S2 - GI/Abdominal Exam GI & Abdominal Exam: Soft. absent: Distended, Tenderness - Rectal Exam Rectal Exam: Deferred - Extremities Exam Additional comments: palpable B/L upper extremity pulses L forearm intramuscular bruise - Back Exam Back exam: absent: CVA tenderness (L), CVA tenderness (R) - Neurological Exam Neurological exam: Alert, Oriented x3 - Psychiatric Exam Psychiatric exam: Normal Affect, Normal Mood - Skin Skin Exam: Dry, Warm Results - Vital Signs Recent Vital Signs: Last Vital Signs Temp 98.2 F 07/20/17 08:27 Pulse 75 07/20/17 08:27 Resp 20 07/20/17 08:27 BP 153/76 H 07/20/17 10:38 Pulse Ox 100 07/20/17 08:27 - Labs Result Diagrams: 07/19/17 14:34 07/20/17 06:32 Labs: Laboratory Results - last 24 hr 07/18/17 07/19/17 07/19/17 08:22 14:34 14:34 WBC 12.7 H RBC 3.14 L Hgb 9.0 L Hct 27.1 L MCV 86.1 MCH 28.7 MCHC 33.3 RDW 14.4 Plt Count 179 MPV 10.0 Neut % (Auto) 83.8 H Lymph % (Auto) 5.3 L Cassia % (Auto) 9.5 Eos % (Auto) 1.1 Baso % (Auto) 0.3 Neut # 10.6 H Lymph # 0.7 L Cassia # 1.2 H Eos # 0.1 Baso # 0.0 Neutrophils % (Manual) 84 H Lymphocytes % (Manual) 7 L Monocytes % (Manual) 7 Eosinophils % (Manual) 2 Platelet Estimate Normal Microcytosis (manual) Slight Sodium 132 Potassium 3.7 Chloride 96 L Carbon Dioxide 23 Anion Gap 17 BUN 88 H Creatinine 5.7 H Est GFR ( Amer) 13 Est GFR (Non-Af Amer) 10 POC Glucose (mg/dL) Random Glucose 211 H Calcium 7.6 L Total Bilirubin 0.4 AST 15 L D ALT 24 Alkaline Phosphatase 52 Total Protein 6.7 Albumin 3.5 Globulin 3.1 Albumin/Globulin Ratio 1.1 PTH Intact Whole Molec 140 H 07/19/17 07/19/17 07/20/17 16:21 20:57 06:32 WBC RBC Hgb Hct MCV MCH MCHC RDW Plt Count MPV Neut % (Auto) Lymph % (Auto) Cassia % (Auto) Eos % (Auto) Baso % (Auto) Neut # Lymph # Cassia # Eos # Baso # Neutrophils % (Manual) Lymphocytes % (Manual) Monocytes % (Manual) Eosinophils % (Manual) Platelet Estimate Microcytosis (manual) Sodium 135 Potassium 3.5 L Chloride 99 Carbon Dioxide 23 Anion Gap 17 BUN 91 H Creatinine 5.7 H Est GFR ( Amer) 13 Est GFR (Non-Af Amer) 10 POC Glucose (mg/dL) 149 H 155 H Random Glucose 170 H Calcium 7.4 L Total Bilirubin AST ALT Alkaline Phosphatase Total Protein Albumin Globulin Albumin/Globulin Ratio PTH Intact Whole Molec 07/20/17 07/20/17 06:37 11:13 WBC RBC Hgb Hct MCV MCH MCHC RDW Plt Count MPV Neut % (Auto) Lymph % (Auto) Cassia % (Auto) Eos % (Auto) Baso % (Auto) Neut # Lymph # Cassia # Eos # Baso # Neutrophils % (Manual) Lymphocytes % (Manual) Monocytes % (Manual) Eosinophils % (Manual) Platelet Estimate Microcytosis (manual) Sodium Potassium Chloride Carbon Dioxide Anion Gap BUN Creatinine Est GFR ( Amer) Est GFR (Non-Af Amer) POC Glucose (mg/dL) 170 H 211 H Random Glucose Calcium Total Bilirubin AST ALT Alkaline Phosphatase Total Protein Albumin Globulin Albumin/Globulin Ratio PTH Intact Whole Molec Assessment & Plan - Assessment and Plan (Free Text) Assessment: 56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 F/U B/L upper extremity doppler. Cardiology, Pulmonology clearance for OR OR planning D/W Dr. Valeria Chang PGY4
--- NOTE | 2017-07-20 19:52 | CP.PCM.PN ---
Subjective - Date & Time of Evaluation Date of Evaluation: 07/20/17 Time of Evaluation: 13:00 - Subjective Subjective: improved seen by surgery for fistula, chf, gfr 15 Objective - Vital Signs/Intake and Output Vital Signs (last 24 hours): Temp Pulse Resp BP Pulse Ox 98.4 F 76 20 150/72 94 L 07/20/17 16:28 07/20/17 16:28 07/20/17 16:28 07/20/17 18:39 07/20/17 16:28 - Medications Medications: Current Medications Albuterol Sulfate (Albuterol 0.083% Inhal Madie (2.5 Mg/3 Ml) Ud) 2.5 mg INH RQ6 [facility] Last Admin: 07/20/17 13:35 Dose: Not Given Budesonide (Pulmicort Respules) 0.5 mg INH RQ12 [facility] Last Admin: 07/20/17 08:09 Dose: 0.5 mg Carvedilol (Coreg) 12.5 mg PO BID [facility] Last Admin: 07/20/17 18:39 Dose: 12.5 mg Clonidine HCl (Catapres) 0.1 mg PO Q8 [facility] Last Admin: 07/20/17 13:54 Dose: 0.1 mg Enoxaparin Sodium (Lovenox) 30 mg SC DAILY [facility] Last Admin: 07/20/17 10:39 Dose: 30 mg Epoetin Ant (Procrit) 10,000 unit SC TTS [facility] Last Admin: 07/20/17 10:39 Dose: 10,000 unit Furosemide (Lasix) 40 mg IVP DAILY [facility] Last Admin: 07/20/17 10:38 Dose: 40 mg Guaifenesin (Mucinex La) 600 mg PO BID [facility] Last Admin: 07/20/17 18:39 Dose: 600 mg Hydralazine HCl (Apresoline) 75 mg PO Q8 [facility] Last Admin: 07/20/17 13:59 Dose: 75 mg Ceftriaxone Sodium 1 gm/ (Sodium Chloride) 100 mls @ 100 mls/hr IVPB DAILY [facility] Last Admin: 07/20/17 10:28 Dose: 100 mls/hr Doxycycline Hyclate 100 mg/ (Sodium Chloride) 100 mls @ 100 mls/hr IVPB Q12H [facility] Last Admin: 07/20/17 08:29 Dose: 100 mls/hr Ferric Sodium Gluconate Complex 125 mg/ Sodium Chloride 110 mls @ 110 mls/hr IVPB DAILY [facility] Stop: 07/25/17 10:01 Last Admin: 07/20/17 12:54 Dose: 110 mls/hr Montelukast Sodium (Singulair) 10 mg PO DAILY [facility] Last Admin: 07/20/17 10:38 Dose: 10 mg Pantoprazole Sodium (Protonix Ec Tab) 40 mg PO DAILY [facility] Last Admin: 07/20/17 10:46 Dose: 40 mg Rosuvastatin Calcium (Crestor) 10 mg PO HS [facility] Last Admin: 07/19/17 21:24 Dose: 10 mg Vitamin B Complex/Vit C/Folic Acid (Nephro-Berry) 1 tab PO 0800 [facility] Last Admin: 07/20/17 08:29 Dose: 1 tab - Labs Labs: 07/19/17 14:34 07/20/17 06:32 PT 11.7 SECONDS (9.7-12.2) 07/16/17 13:57 INR 1.0 07/16/17 13:57 APTT 30 SECONDS (21-34) 07/16/17 13:57 - Constitutional Appears: Non-toxic - Head Exam Head Exam: ATRAUMATIC - Eye Exam Eye Exam: EOMI - ENT Exam ENT Exam: Mucous Membranes Moist - Neck Exam Neck Exam: absent: Lymphadenopathy, Thyromegaly - Respiratory Exam Respiratory Exam: Clear to Ausculation Bilateral. absent: Rales - Cardiovascular Exam Cardiovascular Exam: REGULAR RHYTHM, Murmur - GI/Abdominal Exam GI & Abdominal Exam: Normal Bowel Sounds. absent: Organomegaly - Rectal Exam Rectal Exam: Deferred - Extremities Exam Extremities Exam: Normal Capillary Refill. absent: Calf Tenderness - Neurological Exam Neurological Exam: Alert, Oriented x3 - Psychiatric Exam Psychiatric exam: Normal Mood - Skin Skin Exam: Dry Assessment and Plan (1) Shortness of breath Status: Acute (2) Elevated troponin Status: Acute (3) Renal failure Status: Acute
[2017-07-21] MEDS: Albuterol 0.083% Inhal Sol (2.5 mg/3 mL) UD INH SCH ×4 (02:07→13:32)
[2017-07-21] MEDS: Budesonide 0.5 mg/2 ml Inhal Susp UD INH SCH ×2 (07:29→20:27)
[2017-07-21 07:42] LABS: COMPLEMENT C4 40.9 mg/dL (14.0-44.0)
[2017-07-21 07:58] LABS: HEPATITIS B SURFACE AG NEGATIVE (NEGATIVE)
[2017-07-21 08:04] LABS: HEPATITIS A IGM NEGATIVE (NEGATIVE); HEPATITIS B CORE AB Negative (NEGATIVE)
[2017-07-21 08:16] LABS: HEPATITIS C ANTIBODY Negative (NEGATIVE)
--- NOTE | 2017-07-21 08:36 | CON ---
DATE: 07/20/2017 FOLLOWUP RENAL CONSULTATION LOCATION: Room 671, bed A. REQUESTED BY: Tobin Witt MD. HISTORY OF PRESENT ILLNESS: Mr. Mehta is a 56-year-old obese male with a history of longstanding hypertension, diabetes, asthma, chronic kidney disease, proteinuria, who was admitted with shortness of breath and bilateral leg swelling. The patient is being treated for exacerbation of asthma and CHF. The patient is on diuretics. The patient is feeling much better today, not in any distress. No chest pain. No palpitations. No fever. Less cough. Less swelling of the legs. PHYSICAL EXAMINATION: GENERAL: Mr. Mehta is a 56-year-old obese male, well-built, well-nourished, not in any distress. VITAL SIGNS: Are as follows, blood pressure 153/76, pulse 75, respirations 20, temperature 98.2, saturation 100%. Height 5 feet 6 inches and weight is 283 pounds. HEENT: Pupils are normal and reactive to light and accommodation. Conjunctivae pink. Sclerae are anicteric. Tongue is moist. Trachea is midline. LUNGS: Symmetric on both sides. Bilateral breath sounds present. Clear on auscultation. CARDIOVASCULAR SYSTEM: Hurt at the fifth intercostal space, midclavicular line. S1, S2 audible. No murmur or gallop. ABDOMEN: Normal in appearance, soft and tympanic. No guarding. No rigidity. No hepatosplenomegaly. CENTRAL NERVOUS SYSTEM: The patient is alert, awake, and oriented x3. Nonfocal neuro examination. Cranial nerves II through XII grossly intact. Sensory and motor system is within normal limits. EXTREMITIES: No cyanosis, no clubbing, no edema. CURRENT MEDICATIONS: Include as follows; albuterol inhaler q. 6 hours, hydralazine 75 mg p.o. q. 8 hours, clonidine 0.1 mg p.o. q. 8 hours, Rocephin 1 g daily, Coreg 12.5 mg p.o. b.i.d., Crestor 10 mg at bedtime, doxycycline 100 mg q. 12 hours, ferric gluconate 125 mg IV daily, Lasix 40 mg IV daily, Lovenox 30 mg subcu daily, Mucinex 600 mg p.o. b.i.d., Nephro-Berry one tablet daily, Epogen 10,000 units 3 times a week, Protonix 40 mg daily, Pulmicort 0.5 mg subcu q. 12 hours, and Singulair 10 mg p.o. daily. LABORATORY DATA: Include as follows: As of 07/20/2017, sodium 135, potassium 3.5, chloride 99, CO2 of 23, BUN 91, creatinine 5.7, glucose is 170, and calcium is 7.4. ASSESSMENT AND PLAN: In summary, Mr. Mehta is a 56-year-old obese male with history of hypertension, diabetes, asthma, being treated for exacerbation of asthma, congestive heart failure, proteinuria, chronic kidney disease, and anemia. 1. Chronic kidney disease IV with worsening renal function, most likely secondary to diabetic nephropathy, cannot rule out underlying chronic glomerulonephritis, such as focal segmental glomerulosclerosis. 2. Hypertension. Blood pressure is stable. Continue his current medications and titrate hydralazine to 100 mg p.o. q. 8 hours if needed to keep the blood pressure around 130/70 and also consider the losartan 50 mg daily and titrate as needed. 3. Anemia secondary to renal failure. Continue Nephrocaps, IV iron, and Epogen. 4. Proteinuria, most likely secondary to diabetic nephropathy. Follow up with Vascular Surgery for possible AV fistula placement prior to the discharge, and also venous mapping of the left upper extremities for HD access placement. Case discussed with the nurse practitioner, Sarita, in rounds. We will follow with you. Thank you for allowing me to participate in your patient's care. Talya Vogel MD
[2017-07-21] MEDS: Multivitamin Vitamin B Complex (Nephro-Vite) Tab PO SCH (09:36)
[2017-07-21] MEDS ORDERED: Ferric Sodium Gluconat Complex 62.5 mg/5 ml Vial ONE (10:11)
[2017-07-21] MEDS: Pantoprazole 40 mg EC Tab PO SCH (10:37)
[2017-07-21] MEDS: guaiFENesin 600 mg ER Tab PO SCH ×2 (10:37→18:42)
[2017-07-21] MEDS: Ferric Sodium Gluconat Complex 125 MG in Sodium Chloride 0.9% 100 ML IVPB SCH (10:39)
[2017-07-21] MEDS: Enoxaparin 30 mg Syringe SC SCH (10:43)
--- NOTE | 2017-07-21 16:00 | CP.PCM.PN ---
Subjective - Date & Time of Evaluation Date of Evaluation: 07/21/17 Time of Evaluation: 13:00 - Subjective Subjective: The patient was seen and examined this morning. He states that he hasn't been getting much rest due to sleep apnea. However, he states that his breathing has improved compared to its status when he initially came in. He states that it's difficult to "keep up breathing" and that he is having difficulty catching his breath when speaking. He states that he also has been feeling anxious. He complains of shortness of breath on exertion. The patient denies fever, chills, chest pain, palpitations, cough, sputum production, peripheral edema, and hemoptysis. He admits to weakness, fatigue, shortness of breath, and dyspnea. Vitals signs: Temperature: 98.2F Pulse: 77 bpm Blood pressure: 141/72 mm Hg Respiratory rate: 20 brpm Oxygen saturation: 97% on RA Physical examination: General: no acute distress, atraumatic, normocephalic Cardiovascular: RRR, +s1, +s2, +s3 Pulmonary: decreased expiratory flow, CTA b/l, no wheezing/rales/rhonchi Assessment & Plan Shortness of breath * The patient's shortness of breath is likely of multifactorial etiology due to pulmonary vascular congestion secondary to CHF, asthma exacerbation, sleep apnea , and obesity hypoventilation syndrome. * EKG: Revealed normal sinus rhythm, nonspecific T wave abnormalities, and a prolonged QT interval. * CXR 07/15/2017: Revealed diffuse increased interstitial lung markings suggestive for venous congestion versus edema versus interstitial infiltrates with mild cardiomegaly. * Echocardiogram: Revealed mild dilation of the left ventricle, borderline to mild concentric LVH, mild to moderately impaired systolic function, LVEF 45-45% , global hypokinesis of the LV, Grade I abnormal relaxation pattern on transmitral doppler, calcified/sclerotic aortic valve, mild annular calcification, trace to mild MR, mild TR, and trace ND. * CXR 07/18/2017: Revealed bilateral perihilar haziness with more dense opacities in the right lung representing asymmetric edema versus pneumonia. Close clinical surveillance of the patient's respiratory status is recommended, possible bilateral pleural effusions. * Continue cervedilol, clonidine, furosemide, hydralazine, and rosuvastatin to optimize patient's CHF and hypertension * Continue albuterol inhalter, budesonide, guaifenesin, and montelukast for asthma exacerbation * Consider sleep study * Continue empiric antibiotics due to severe comorbidities * Begin ipratropium * Begin CPAP for patient's sleep apnea Objective - Vital Signs/Intake and Output Vital Signs (last 24 hours): Temp Pulse Resp BP Pulse Ox 98.2 F 73 20 166/93 H 97 07/21/17 08:53 07/21/17 14:24 07/21/17 08:53 07/21/17 14:24 07/21/17 08:53 Intake and Output: 07/21/17 07/21/17 06:59 18:59 Intake Total 100 Balance 100 - Medications Medications: Current Medications Acetaminophen/Codeine Phosphate (Tylenol/Codeine 300 Mg/30 Mg) 1 ea PO Q6 PRN PRN Reason: Pain, severe (8-10) Budesonide (Pulmicort Respules) 0.5 mg INH RQ12 [facility] Last Admin: 07/21/17 07:29 Dose: 0.5 mg Carvedilol (Coreg) 12.5 mg PO BID [facility] Last Admin: 07/21/17 10:36 Dose: 12.5 mg Clonidine HCl (Catapres) 0.1 mg PO Q8 [facility] Last Admin: 07/21/17 14:25 Dose: 0.1 mg Enoxaparin Sodium (Lovenox) 30 mg SC DAILY [facility] Last Admin: 07/21/17 10:43 Dose: Not Given Epoetin Ant (Procrit) 10,000 unit SC TTS [facility] Last Admin: 07/20/17 10:39 Dose: 10,000 unit Furosemide (Lasix) 40 mg IVP DAILY [facility] Last Admin: 07/21/17 10:38 Dose: 40 mg Guaifenesin (Mucinex La) 600 mg PO BID [facility] Last Admin: 07/21/17 10:37 Dose: 600 mg Hydralazine HCl (Apresoline) 75 mg PO Q8 [facility] Last Admin: 07/21/17 14:25 Dose: 75 mg Ceftriaxone Sodium 1 gm/ (Sodium Chloride) 100 mls @ 100 mls/hr IVPB DAILY [facility] Last Admin: 07/21/17 10:38 Dose: 100 mls/hr Doxycycline Hyclate 100 mg/ (Sodium Chloride) 100 mls @ 100 mls/hr IVPB Q12H [facility] Last Admin: 07/21/17 11:40 Dose: 100 mls/hr Ferric Sodium Gluconate Complex 125 mg/ Sodium Chloride 110 mls @ 110 mls/hr IVPB DAILY [facility] Stop: 07/25/17 10:01 Last Admin: 07/21/17 10:39 Dose: 110 mls/hr Ipratropium [place] (Atrovent) 0.5 mg IH [id number] [facility] Montelukast Sodium (Singulair) 10 mg PO DAILY [facility] Last Admin: 07/21/17 10:36 Dose: 10 mg Pantoprazole Sodium (Protonix Ec Tab) 40 mg PO DAILY [facility] Last Admin: 07/21/17 10:37 Dose: 40 mg Rosuvastatin Calcium (Crestor) 10 mg PO HS [facility] Last Admin: 07/20/17 20:59 Dose: 10 mg Vitamin B Complex/Vit C/Folic Acid (Nephro-Berry) 1 tab PO 0800 [facility] Last Admin: 07/21/17 09:36 Dose: 1 tab - Labs Labs: 07/19/17 14:34 07/20/17 06:32 PT 11.7 SECONDS (9.7-12.2) 07/16/17 13:57 INR 1.0 07/16/17 13:57 APTT 30 SECONDS (21-34) 07/16/17 13:57
--- NOTE | 2017-07-21 16:32 | CP.PCM.PN ---
Subjective - Date & Time of Evaluation Date of Evaluation: 07/21/17 Time of Evaluation: 16:30 - Subjective Subjective: Surgery Pt s&e. NAEON. Resting. Objective - Vital Signs/Intake and Output Vital Signs (last 24 hours): Temp Pulse Resp BP Pulse Ox 98.2 F 73 20 166/93 H 97 07/21/17 08:53 07/21/17 14:24 07/21/17 08:53 07/21/17 14:24 07/21/17 08:53 Intake and Output: 07/21/17 07/21/17 06:59 18:59 Intake Total 100 Balance 100 - Medications Medications: Current Medications Acetaminophen/Codeine Phosphate (Tylenol/Codeine 300 Mg/30 Mg) 1 ea PO Q6 PRN PRN Reason: Pain, severe (8-10) Budesonide (Pulmicort Respules) 0.5 mg INH RQ12 [facility] Last Admin: 07/21/17 07:29 Dose: 0.5 mg Carvedilol (Coreg) 12.5 mg PO BID [facility] Last Admin: 07/21/17 10:36 Dose: 12.5 mg Clonidine HCl (Catapres) 0.1 mg PO Q8 [facility] Last Admin: 07/21/17 14:25 Dose: 0.1 mg Enoxaparin Sodium (Lovenox) 30 mg SC DAILY [facility] Last Admin: 07/21/17 10:43 Dose: Not Given Epoetin Ant (Procrit) 10,000 unit SC TTS [facility] Last Admin: 07/20/17 10:39 Dose: 10,000 unit Furosemide (Lasix) 40 mg IVP DAILY [facility] Last Admin: 07/21/17 10:38 Dose: 40 mg Guaifenesin (Mucinex La) 600 mg PO BID [facility] Last Admin: 07/21/17 10:37 Dose: 600 mg Hydralazine HCl (Apresoline) 75 mg PO Q8 [facility] Last Admin: 07/21/17 14:25 Dose: 75 mg Ceftriaxone Sodium 1 gm/ (Sodium Chloride) 100 mls @ 100 mls/hr IVPB DAILY [facility] Last Admin: 07/21/17 10:38 Dose: 100 mls/hr Doxycycline Hyclate 100 mg/ (Sodium Chloride) 100 mls @ 100 mls/hr IVPB Q12H [facility] Last Admin: 07/21/17 11:40 Dose: 100 mls/hr Ferric Sodium Gluconate Complex 125 mg/ Sodium Chloride 110 mls @ 110 mls/hr IVPB DAILY [facility] Stop: 07/25/17 10:01 Last Admin: 07/21/17 10:39 Dose: 110 mls/hr Ipratropium [place] (Atrovent) 0.5 mg IH RQ6 [facility] Montelukast Sodium (Singulair) 10 mg PO DAILY [facility] Last Admin: 07/21/17 10:36 Dose: 10 mg Pantoprazole Sodium (Protonix Ec Tab) 40 mg PO DAILY [facility] Last Admin: 07/21/17 10:37 Dose: 40 mg Rosuvastatin Calcium (Crestor) 10 mg PO HS [facility] Last Admin: 07/20/17 20:59 Dose: 10 mg Vitamin B Complex/Vit C/Folic Acid (Nephro-Berry) 1 tab PO 0800 [facility] Last Admin: 07/21/17 09:36 Dose: 1 tab - Labs Labs: 07/19/17 14:34 07/20/17 06:32 PT 11.7 SECONDS (9.7-12.2) 07/16/17 13:57 INR 1.0 07/16/17 13:57 APTT 30 SECONDS (21-34) 07/16/17 13:57 - Constitutional Appears: No Acute Distress - Head Exam Head Exam: ATRAUMATIC, NORMAL INSPECTION, NORMOCEPHALIC - Eye Exam Eye Exam: EOMI, Normal appearance, PERRL Pupil Exam: NORMAL ACCOMODATION, PERRL - ENT Exam ENT Exam: Mucous Membranes Moist, Normal Exam - Neck Exam Neck Exam: Full ROM, Normal Inspection. absent: Lymphadenopathy - Respiratory Exam Respiratory Exam: Clear to Ausculation Bilateral, NORMAL BREATHING PATTERN - Cardiovascular Exam Cardiovascular Exam: REGULAR RHYTHM, +S1, +S2. absent: Murmur - GI/Abdominal Exam GI & Abdominal Exam: Soft, Normal Bowel Sounds. absent: Tenderness - Extremities Exam Extremities Exam: Full ROM, Normal Capillary Refill, Normal Inspection. absent : Joint Swelling, Pedal Edema Additional comments: L arm precaution - Back Exam Back Exam: NORMAL INSPECTION - Neurological Exam Neurological Exam: Alert, Awake, CN II-XII Intact, Normal Gait, Oriented x3 - Psychiatric Exam Psychiatric exam: Normal Affect, Normal Mood - Skin Skin Exam: Dry, Intact, Normal Color, Warm Assessment and Plan - Assessment and Plan (Free Text) Assessment: Renal failure L arm precautions. F/U B/L upper extremity doppler. Cardiology, Pulmonology clearance for OR OR scheduled for tomorrow NPO after midnight D/W Dr. Shaw
[2017-07-21] MEDS: Acetaminophen-Codeine 300/30 mg Tab PO PRN (16:33)
--- NOTE | 2017-07-21 18:05 | CP.PCM.PN ---
Subjective - Date & Time of Evaluation Date of Evaluation: 07/21/17 Time of Evaluation: 18:05 - Subjective Subjective: pt is seen and examined, follow up consult is dictated #[id number] Objective - Vital Signs/Intake and Output Vital Signs (last 24 hours): Temp Pulse Resp BP Pulse Ox 97.6 F 73 20 168/89 H 95 07/21/17 17:00 07/21/17 17:00 07/21/17 17:00 07/21/17 17:00 07/21/17 17:00 Intake and Output: 07/21/17 07/21/17 06:59 18:59 Intake Total 880 Output Total 800 Balance 80 - Medications Medications: Current Medications Acetaminophen/Codeine Phosphate (Tylenol/Codeine 300 Mg/30 Mg) 1 ea PO Q6 PRN PRN Reason: Pain, severe (8-10) Last Admin: 07/21/17 16:33 Dose: 1 ea Budesonide (Pulmicort Respules) 0.5 mg INH RQ12 [facility] Last Admin: 07/21/17 07:29 Dose: 0.5 mg Carvedilol (Coreg) 12.5 mg PO BID [facility] Last Admin: 07/21/17 10:36 Dose: 12.5 mg Clonidine HCl (Catapres) 0.1 mg PO Q8 [facility] Last Admin: 07/21/17 14:25 Dose: 0.1 mg Enoxaparin Sodium (Lovenox) 30 mg SC DAILY [facility] Last Admin: 07/21/17 10:43 Dose: Not Given Epoetin Ant (Procrit) 10,000 unit SC TTS [facility] Last Admin: 07/20/17 10:39 Dose: 10,000 unit Furosemide (Lasix) 40 mg IVP DAILY [facility] Last Admin: 07/21/17 10:38 Dose: 40 mg Guaifenesin (Mucinex La) 600 mg PO BID [facility] Last Admin: 07/21/17 10:37 Dose: 600 mg Hydralazine HCl (Apresoline) 75 mg PO Q8 [facility] Last Admin: 07/21/17 14:25 Dose: 75 mg Ceftriaxone Sodium 1 gm/ (Sodium Chloride) 100 mls @ 100 mls/hr IVPB DAILY [facility] Last Admin: 07/21/17 10:38 Dose: 100 mls/hr Doxycycline Hyclate 100 mg/ (Sodium Chloride) 100 mls @ 100 mls/hr IVPB Q12H [facility] Last Admin: 07/21/17 11:40 Dose: 100 mls/hr Ferric Sodium Gluconate Complex 125 mg/ Sodium Chloride 110 mls @ 110 mls/hr IVPB DAILY [facility] Stop: 07/25/17 10:01 Last Admin: 07/21/17 10:39 Dose: 110 mls/hr Ipratropium [place] (Atrovent) 0.5 mg IH RQ6 [facility] Montelukast Sodium (Singulair) 10 mg PO DAILY [facility] Last Admin: 07/21/17 10:36 Dose: 10 mg Pantoprazole Sodium (Protonix Ec Tab) 40 mg PO DAILY [facility] Last Admin: 07/21/17 10:37 Dose: 40 mg Rosuvastatin Calcium (Crestor) 10 mg PO HS [facility] Last Admin: 07/20/17 20:59 Dose: 10 mg Vitamin B Complex/Vit C/Folic Acid (Nephro-Berry) 1 tab PO 0800 [facility] Last Admin: 07/21/17 09:36 Dose: 1 tab - Labs Labs: 07/19/17 14:34 07/20/17 06:32 PT 11.7 SECONDS (9.7-12.2) 07/16/17 13:57 INR 1.0 07/16/17 13:57 APTT 30 SECONDS (21-34) 07/16/17 13:57
--- NOTE | 2017-07-21 18:39 | CP.PCM.PN ---
Subjective - Date & Time of Evaluation Date of Evaluation: 07/21/17 Time of Evaluation: 15:00 - Subjective Subjective: improved clinically, acceptable for cardiac complication from fistula placement Objective - Vital Signs/Intake and Output Vital Signs (last 24 hours): Temp Pulse Resp BP Pulse Ox 97.6 F 73 20 168/89 H 95 07/21/17 17:00 07/21/17 17:00 07/21/17 17:00 07/21/17 17:00 07/21/17 17:00 Intake and Output: 07/21/17 07/21/17 06:59 18:59 Intake Total 880 Output Total 800 Balance 80 - Medications Medications: Current Medications Acetaminophen/Codeine Phosphate (Tylenol/Codeine 300 Mg/30 Mg) 1 ea PO Q6 PRN PRN Reason: Pain, severe (8-10) Last Admin: 07/21/17 16:33 Dose: 1 ea Budesonide (Pulmicort Respules) 0.5 mg INH RQ12 [facility] Last Admin: 07/21/17 07:29 Dose: 0.5 mg Carvedilol (Coreg) 12.5 mg PO BID [facility] Last Admin: 07/21/17 10:36 Dose: 12.5 mg Clonidine HCl (Catapres) 0.1 mg PO Q8 [facility] Last Admin: 07/21/17 14:25 Dose: 0.1 mg Enoxaparin Sodium (Lovenox) 30 mg SC DAILY [facility] Last Admin: 07/21/17 10:43 Dose: Not Given Epoetin Ant (Procrit) 10,000 unit SC TTS [facility] Last Admin: 07/20/17 10:39 Dose: 10,000 unit Furosemide (Lasix) 40 mg IVP DAILY [facility] Last Admin: 07/21/17 10:38 Dose: 40 mg Guaifenesin (Mucinex La) 600 mg PO BID [facility] Last Admin: 07/21/17 10:37 Dose: 600 mg Hydralazine HCl (Apresoline) 75 mg PO Q8 [facility] Last Admin: 07/21/17 14:25 Dose: 75 mg Ceftriaxone Sodium 1 gm/ (Sodium Chloride) 100 mls @ 100 mls/hr IVPB DAILY [facility] Last Admin: 07/21/17 10:38 Dose: 100 mls/hr Doxycycline Hyclate 100 mg/ (Sodium Chloride) 100 mls @ 100 mls/hr IVPB Q12H [facility] Last Admin: 07/21/17 11:40 Dose: 100 mls/hr Ferric Sodium Gluconate Complex 125 mg/ Sodium Chloride 110 mls @ 110 mls/hr IVPB DAILY [facility] Stop: 07/25/17 10:01 Last Admin: 07/21/17 10:39 Dose: 110 mls/hr Ipratropium [place] (Atrovent) 0.5 mg IH RQ6 [facility] Montelukast Sodium (Singulair) 10 mg PO DAILY [facility] Last Admin: 07/21/17 10:36 Dose: 10 mg Pantoprazole Sodium (Protonix Ec Tab) 40 mg PO DAILY [facility] Last Admin: 07/21/17 10:37 Dose: 40 mg Rosuvastatin Calcium (Crestor) 10 mg PO HS [facility] Last Admin: 07/20/17 20:59 Dose: 10 mg Vitamin B Complex/Vit C/Folic Acid (Nephro-Berry) 1 tab PO 0800 [facility] Last Admin: 07/21/17 09:36 Dose: 1 tab - Labs Labs: 07/19/17 14:34 07/20/17 06:32 PT 11.7 SECONDS (9.7-12.2) 07/16/17 13:57 INR 1.0 07/16/17 13:57 APTT 30 SECONDS (21-34) 07/16/17 13:57 - Constitutional Appears: Non-toxic - Head Exam Head Exam: ATRAUMATIC - Eye Exam Eye Exam: absent: EOMI - ENT Exam ENT Exam: Mucous Membranes Moist - Neck Exam Neck Exam: absent: Lymphadenopathy, Thyromegaly - Respiratory Exam Respiratory Exam: Clear to Ausculation Bilateral. absent: Rales - Cardiovascular Exam Cardiovascular Exam: REGULAR RHYTHM, Murmur - GI/Abdominal Exam GI & Abdominal Exam: Normal Bowel Sounds. absent: Organomegaly - Rectal Exam Rectal Exam: Deferred - Extremities Exam Extremities Exam: Normal Capillary Refill. absent: Calf Tenderness - Neurological Exam Neurological Exam: Alert, Oriented x3 - Psychiatric Exam Psychiatric exam: Normal Mood - Skin Skin Exam: Dry Assessment and Plan (1) Shortness of breath Status: Acute (2) Elevated troponin Status: Acute (3) Renal failure Status: Acute
--- NOTE | 2017-07-21 19:50 | US ---
EXAM: US Retroperitoneal Limited, Renal CLINICAL HISTORY: 56 years old, male; Signs and symptoms; Other: R/O renal mass; Additional info: HTN, dm, asthma, R/O renal mass TECHNIQUE: Real-time ultrasound of the retroperitoneum (limited) with image documentation. COMPARISON: No relevant prior studies available. FINDINGS: Right kidney: Increased in echogenicity. 2.1 x 1.3 x 1.3 cm anechoic lesion. No calculi. No hydronephrosis. Left kidney: Increased in echogenicity. 4.5 x 4.3 x 4.1 cm heterogeneous lesion. No calculi. Multiple caliectasis. Bladder: Collapsed bladder, limiting evaluation. IMPRESSION: 1. Echogenic kidneys suggesting medical renal disease. 2. Left kidney lesion, indeterminate. Recommend nonemergent MRI. 3. Right renal cyst. 4. Mild pelvocaliectasis of LEFT kidney.
[2017-07-21] MEDS: Ipratropium 0.02% Inhal Soln (0.5 mg/2.5 ml) UD IH SCH (20:25)
--- NOTE | 2017-07-21 22:42 | CP.PCM.PN ---
Subjective - Date & Time of Evaluation Date of Evaluation: 07/21/17 Time of Evaluation: 18:35 - Subjective Subjective: Pt is for OR, less cough, less congestion Objective - Vital Signs/Intake and Output Vital Signs (last 24 hours): Temp Pulse Resp BP Pulse Ox 97.6 F 73 20 171/81 H 95 07/21/17 17:00 07/21/17 17:00 07/21/17 17:00 07/21/17 21:58 07/21/17 17:00 Intake and Output: 07/21/17 07/22/17 18:59 06:59 Intake Total 880 Output Total 800 Balance 80 - Medications Medications: Current Medications Acetaminophen/Codeine Phosphate (Tylenol/Codeine 300 Mg/30 Mg) 1 ea PO Q6 PRN PRN Reason: Pain, severe (8-10) Last Admin: 07/21/17 16:33 Dose: 1 ea Budesonide (Pulmicort Respules) 0.5 mg INH RQ12 [facility] Last Admin: 07/21/17 20:27 Dose: 0.5 mg Carvedilol (Coreg) 12.5 mg PO BID [facility] Last Admin: 07/21/17 18:42 Dose: 12.5 mg Clonidine HCl (Catapres) 0.1 mg PO Q8 [facility] Last Admin: 07/21/17 22:01 Dose: 0.1 mg Enoxaparin Sodium (Lovenox) 30 mg SC DAILY [facility] Last Admin: 07/21/17 10:43 Dose: Not Given Epoetin Ant (Procrit) 10,000 unit SC TTS [facility] Last Admin: 07/20/17 10:39 Dose: 10,000 unit Furosemide (Lasix) 40 mg IVP DAILY [facility] Last Admin: 07/21/17 10:38 Dose: 40 mg Guaifenesin (Mucinex La) 600 mg PO BID [facility] Last Admin: 07/21/17 18:42 Dose: 600 mg Hydralazine HCl (Apresoline) 100 mg PO Q8 [facility] Last Admin: 07/21/17 22:01 Dose: 100 mg Ceftriaxone Sodium 1 gm/ (Sodium Chloride) 100 mls @ 100 mls/hr IVPB DAILY [facility] Last Admin: 07/21/17 10:38 Dose: 100 mls/hr Doxycycline Hyclate 100 mg/ (Sodium Chloride) 100 mls @ 100 mls/hr IVPB Q12H [facility] Last Admin: 07/21/17 22:00 Dose: 100 mls/hr Ferric Sodium Gluconate Complex 125 mg/ Sodium Chloride 110 mls @ 110 mls/hr IVPB DAILY [facility] Stop: 07/25/17 10:01 Last Admin: 07/21/17 10:39 Dose: 110 mls/hr Ipratropium [place] (Atrovent) 0.5 mg IH RQ6 [facility] Last Admin: 07/21/17 20:25 Dose: 0.5 mg Montelukast Sodium (Singulair) 10 mg PO DAILY [facility] Last Admin: 07/21/17 10:36 Dose: 10 mg Pantoprazole Sodium (Protonix Ec Tab) 40 mg PO DAILY [facility] Last Admin: 07/21/17 10:37 Dose: 40 mg Rosuvastatin Calcium (Crestor) 10 mg PO HS [facility] Last Admin: 07/21/17 22:00 Dose: 10 mg Vitamin B Complex/Vit C/Folic Acid (Nephro-Berry) 1 tab PO 0800 [facility] Last Admin: 07/21/17 09:36 Dose: 1 tab - Labs Labs: 07/19/17 14:34 07/20/17 06:32 PT 11.7 SECONDS (9.7-12.2) 07/16/17 13:57 INR 1.0 07/16/17 13:57 APTT 30 SECONDS (21-34) 07/16/17 13:57 Assessment and Plan (1) Chronic congestive heart failure Status: Acute (2) Dyspnea Status: Acute (3) Hypertension Status: Acute (4) Renal failure Status: Acute (5) Elevated troponin Status: Acute (6) Anemia Status: Acute
[2017-07-22] MEDS: Acetaminophen-Codeine 300/30 mg Tab PO PRN ×2 (00:49→19:37)
[2017-07-22] MEDS: Ipratropium 0.02% Inhal Soln (0.5 mg/2.5 ml) UD IH SCH ×5 (02:38→22:23)
--- NOTE | 2017-07-22 04:54 | CON ---
DATE: FOLLOWUP RENAL CONSULTATION: LOCATION: Room 671, bed A. REQUESTED BY: Tobin Witt MD. REASON FOR FOLLOWUP: Chronic kidney disease, proteinuria for further evaluation. SUBJECTIVE: Mr. Mehta is a 56-year-old obese male with a history of longstanding diabetes, hypertension, proteinuria, and left renal mass with worsening renal function, who was admitted with shortness of breath. The patient still complains of dyspnea on exertion. The patient is complaining of shortness of breath even walking to the bathroom. Denies any chest pain or palpitations. Denies any nausea, vomiting, or diarrhea. The patient does complain of some mild swelling of the both lower extremities. PHYSICAL EXAMINATION: GENERAL: Mrs. Mehta is a 56-year-old, obese, middle-aged male, well-built, well-nourished, not in any distress. VITAL SIGNS: As follows, blood pressure 168/89, pulse 73, respirations 20, temperature 97.6, saturation is 95%, height 5 feet 6 inches, weight is 275 pounds. HEENT: Pupils are normal and reactive to light and accommodation. Conjunctivae are slightly pale. Sclerae are anicteric. Tongue is moist. Trachea is midline. LUNGS: Symmetric on both sides. Bilateral breath sounds are present. No crackles. CARDIOVASCULAR SYSTEM: [place] at the fifth intercostal space in midclavicular line. S1 and S2 audible. No murmur or gallop. ABDOMEN: Normal in appearance. Soft and tympanic. No guarding. No rigidity. No hepatosplenomegaly. CENTRAL NERVOUS SYSTEM: The patient is alert, awake, and oriented x3. Nonfocal neuro examination. Cranial nerves II through XII grossly intact. Sensory and motor system is within normal limits. EXTREMITIES: No cyanosis, no clubbing, no edema. CURRENT MEDICATIONS: Include as follows, hydralazine 100 mg p.o. q. 8 hours, Atrovent 0.5 mg q. 6 hours, clonidine 0.1 mg p.o. q. 8 hours, Rocephin 1 g daily, Coreg 12.5 mg p.o. b.i.d., Crestor 10 mg at bedtime, doxycycline 100 mg IV piggyback q. 12 hours, ferric gluconate 125 mg daily, Lasix 40 mg IV daily, Lovenox 30 mg subcu daily, Mucinex 600 mg p.o. b.i.d., Nephro-Berry one tablet daily, Procrit 10,000 units subcu three times a week, Protonix 40 mg p.o. daily, Singulair 10 mg p.o. daily, and Tylenol with codeine. LABORATORY DATA: Includes as follows, hepatitis A antibody is negative, hepatitis B surface antibody is negative. Core antibody is negative. Hep C antibody is negative. Compliment levels C3 is 108 and C4 is 40.9. Other reports; ultrasound of the kidneys as of 07/21/2017, echogenic kidneys suggesting medical renal disease, left kidney lesion - 4.5 x 4.3 x 4.1 cm heterogenous lesion, recommended nonemergent MRI, right renal cyst, mild pelvocaliectasis of the left kidney. Blood culture x2 negative on day #5 as of 07/15/2017. ASSESSMENT: In summary, Mr. Mehta is a 56-year-old obese male with a history of longstanding hypertension, diabetes, proteinuria and renal failure, asthma, and anemia. 1. Chronic kidney disease stage IV to V, most likely secondary to diabetic nephropathy, cannot rule out underlying chronic glomerulonephritis such as focal segmental glomerulosclerosis. 2. Exacerbation of asthma. 3. Anemia secondary to renal failure and iron deficiency anemia. 4. Hypertension. 5. Left renal mass, rule out malignancy. PLAN: Due to multiple admissions in the past with persistent shortness of breath, the patient claims if he goes home, he may come back within a day with shortness of breath. In view of that, the patient may benefit from initiation of the renal replacement therapy. The patient agrees that we will try to get Perm-A-Cath and AV fistula, and we will initiate hemodialysis if the patient agrees. Discussed with Dr. Tobin Witt in rounds. He will discuss with the patient and also with the surgeon for possible access placement for the fistula and Perm-A-Cath. The patient agrees. Continue Procrit, Nephro-Berry, and IV iron. We will also follow up CLIF titers. Consider Urology evaluation for further evaluation of the left renal mass. The patient may need CAT scan with contrast. Thank you for allowing me to participate in your patient's care. Talya Vogel MD
--- NOTE | 2017-07-22 07:24 | PN ---
DATE: LOCATION: [facility], bed A. SUBJECTIVE: This is a 56-year-old male seen and examined in rounds without significant clinical changes, seen by the work and family life consultant with intermittent period of some shortness of breath, still with abdominal pain on and off. No reported active bleeding. The entire chart is reviewed including but not limited to the most recent lab and radiology study results, current and the previous medication list, current and the previous medical events. The patient is on hemodialysis. Today's labs showed blood glucose level of 151. Rest of the lab results still the patient reported to have increased BUN to 91, creatinine of 5.7 with low calcium of 7.4 with low hemoglobin of 9.0 and hematocrit 27.1. It is to be mentioned that the patient is to be prepared for upper endoscopy due to his persistent nausea and dyspepsia before as well as abdominal pain, awaiting Cardiology reevaluation and clearance due to the patient's elevated troponin level. PHYSICAL EXAMINATION: GENERAL: A 56-year-old male, awake, alert, and oriented. VITAL SIGNS: Afebrile with pulse of 74, respiratory rate 20-22, and blood pressure 148/74. HEENT: Showed pale, dry oral mucous membrane, nonicteric sclerae. LUNGS: A few scattered crepitation. Decreased air entry at bases. HEART: Positive S1 and S2. ABDOMEN: Soft. Bowel sounds are present with slight generalized tenderness. No mass or organomegaly. No rebound tenderness or guarding. NEUROLOGIC: No reported new neurological deficits, sensory or motor. EXTREMITIES: Lower extremities with mild edematous changes. No clubbing or cyanosis. AV fistula is in place. IMPRESSION: 1. Re-exacerbation of peptic ulcer disease. 2. Renal failure, on hemodialysis. 3. Known history of but not limited to hypertension, bronchial asthma, coronary artery disease, sleep apnea. 4. Elevated troponin level, Cardiology workup in process. 5. Congestive heart failure by recent history versus less likely pneumonia. SUGGESTIONS: 1. Continue current management. 2. Guaiac all the stool daily x3. 3. Follow up on cancer markers due to the patient's anemia. 4. The patient may need endoscopic evaluation of the upper GI tract when he is more stable clinically, otherwise conservative treatment to follow. Holly Garcia MD
[2017-07-22 08:01] LABS: BASO # 0.1 K/uL (0.0-0.2); BASO % 0.5 % (0.0-2.0); EOS # 0.4 K/uL (0.0-0.7); EOS % 3.8 % (0.0-4.0); HEMOGLOBIN 8.8 g/dL (12.0-18.0); LYMPH # 1.1 K/uL (1.0-4.3); LYMPH % 9.9 % (20.0-40.0); MEAN CELL VOLUME 86.3 fL (80.0-94.0); MEAN CORPUSCULAR HEMOGLOBIN 29.3 pg (27.0-31.0); NEUT # 8.6 K/uL (1.8-7.0); NEUT % 76.8 % (50.0-75.0); PLATELET COUNT 193 K/uL (130-400); RBC 2.99 Mil/uL (4.40-5.90); RED CELL DISTRIBUTION WIDTH 14.5 % (11.5-14.5); WHITE BLOOD COUNT 11.2 K/uL (4.8-10.8)
[2017-07-22 08:24] LABS: ALB/GLOB RATIO 1.1 (1.0-2.1); ALBUMIN 3.4 g/dL (3.5-5.0); CALCIUM 8.2 mg/dl (8.6-10.4)
[2017-07-22] MEDS: Budesonide 0.5 mg/2 ml Inhal Susp UD INH SCH ×2 (08:30→22:23)
[2017-07-22] MEDS: Multivitamin Vitamin B Complex (Nephro-Vite) Tab PO SCH (08:37)
[2017-07-22 09:11] LABS: EOSINOPHIL 5 % (0-4); LYMPHOCYTE 6 % (20-40); MONOCYTE 9 % (0-10); NEUTROPHIL 80 % (50-75); PLATELET ESTIMATE NORMAL (NORMAL); TOTAL CELLS COUNTED 100
[2017-07-22 09:12] LABS: HYPOCHROMIC SLIGHT; MICROCYTOSIS SLIGHT; POLYCHROMIC SLIGHT
[2017-07-22] MEDS: Enoxaparin 30 mg Syringe SC SCH (09:38)
[2017-07-22] MEDS: EPOETIN ALFA 10,000 UNIT/ML ML SC SCH (09:38)
[2017-07-22] MEDS: Pantoprazole 40 mg EC Tab PO SCH (09:39)
[2017-07-22] MEDS: Ferric Sodium Gluconat Complex 125 MG in Sodium Chloride 0.9% 100 ML IVPB SCH (10:05)
[2017-07-22] MEDS: guaiFENesin 600 mg ER Tab PO SCH ×2 (10:05→19:32)
--- NOTE | 2017-07-22 10:08 | CP.PCM.PN ---
Subjective - Date & Time of Evaluation Date of Evaluation: 07/22/17 Time of Evaluation: 10:04 - Subjective Subjective: pt is seen and examined, follow up consult is dictated #[id number] 1. htn 2. dm 3. nephrotic range proteinura 4. reduced lVEF with diffuse hypokinesia of left LV r/o CAD 5. Asthma 6. Anemia sec to fe def and ckd 7. Left renal mass pt does not want perma cath , wants avf only at this time initially, but later he changed his mind and agreed for permacath placement, and signed informed consent for hemodialysis scheduled for hd today increase lasix to 40 mg iv bid and titrate as needed consider urology consult Objective - Vital Signs/Intake and Output Vital Signs (last 24 hours): Temp Pulse Resp BP Pulse Ox 98.1 F 74 20 196/112 H 96 07/22/17 08:38 07/22/17 08:38 07/22/17 08:38 07/22/17 09:39 07/22/17 08:38 Intake and Output: 07/22/17 07/22/17 06:59 18:59 Intake Total 350 Balance 350 - Medications Medications: Current Medications Acetaminophen/Codeine Phosphate (Tylenol/Codeine 300 Mg/30 Mg) 1 ea PO Q6 PRN PRN Reason: Pain, severe (8-10) Last Admin: 07/22/17 00:49 Dose: 1 ea Budesonide (Pulmicort Respules) 0.5 mg INH RQ12 [facility] Last Admin: 07/22/17 08:30 Dose: Not Given Carvedilol (Coreg) 12.5 mg PO BID [facility] Last Admin: 07/22/17 09:39 Dose: 12.5 mg Clonidine HCl (Catapres) 0.1 mg PO Q8 [facility] Last Admin: 07/22/17 05:10 Dose: 0.1 mg Enoxaparin Sodium (Lovenox) 30 mg SC DAILY [facility] Last Admin: 07/21/17 10:43 Dose: Not Given Epoetin Ant (Procrit) 10,000 unit SC TTS [facility] Last Admin: 07/22/17 09:38 Dose: 10,000 unit Furosemide (Lasix) 40 mg IVP Q12 [facility] Last Admin: 07/22/17 09:38 Dose: 40 mg Guaifenesin (Mucinex La) 600 mg PO BID [facility] Last Admin: 07/21/17 18:42 Dose: 600 mg Hydralazine HCl (Apresoline) 100 mg PO Q8 [facility] Last Admin: 07/22/17 05:09 Dose: 100 mg Ceftriaxone Sodium 1 gm/ (Sodium Chloride) 100 mls @ 100 mls/hr IVPB DAILY [facility] Last Admin: 07/22/17 09:36 Dose: 100 mls/hr Doxycycline Hyclate 100 mg/ (Sodium Chloride) 100 mls @ 100 mls/hr IVPB Q12H [facility] Last Admin: 07/22/17 08:14 Dose: 100 mls/hr Ferric Sodium Gluconate Complex 125 mg/ Sodium Chloride 110 mls @ 110 mls/hr IVPB DAILY [facility] Stop: 07/25/17 10:01 Last Admin: 07/21/17 10:39 Dose: 110 mls/hr Ipratropium [place] (Atrovent) 0.5 mg IH RQ6 [facility] Last Admin: 07/22/17 07:14 Dose: 0.5 mg Montelukast Sodium (Singulair) 10 mg PO DAILY [facility] Last Admin: 07/22/17 09:39 Dose: 10 mg Pantoprazole Sodium (Protonix Ec Tab) 40 mg PO DAILY [facility] Last Admin: 07/22/17 09:39 Dose: 40 mg Rosuvastatin Calcium (Crestor) 10 mg PO HS [facility] Last Admin: 07/21/17 22:00 Dose: 10 mg Sevelamer Carbonate (Renvela) 800 mg PO TIDCC [facility] Vitamin B Complex/Vit C/Folic Acid (Nephro-Berry) 1 tab PO 0800 [facility] Last Admin: 07/22/17 08:37 Dose: Not Given - Labs Labs: 07/22/17 07:50 07/22/17 07:50 PT 11.7 SECONDS (9.7-12.2) 07/16/17 13:57 INR 1.0 07/16/17 13:57 APTT 30 SECONDS (21-34) 07/16/17 13:57
[2017-07-22] MEDS ORDERED: Sodium Chloride 0.9% 1,000 ML IV ONE (10:15)
[2017-07-22] MEDS ORDERED: HEPARIN-NS 5,000 UNITS/500 ML 5,000 UNIT/500 ML BAG IV ONE (10:24)
[2017-07-22] MEDS ORDERED: ceFAZolin IV 2 gm in Dextrose 2 GM/50 ML BAG IVPB ONE (10:25)
[2017-07-22] MEDS ORDERED: Ketamine 50 mg/ml Inj (10 ml) ONE (10:25)
[2017-07-22] MEDS ORDERED: Lidocaine 1% Inj (20ml) ONE (10:25)
[2017-07-22] MEDS ORDERED: Midazolam 2 MG/2 ML VIAL ONE ×2 (10:32→10:41)
[2017-07-22] MEDS ORDERED: Etomidate 20 mg/10ml Inj IV ONE (10:58)
[2017-07-22] MEDS ORDERED: Albuterol 0.083% Inhal Sol (2.5 mg/3 mL) UD INH PRN (11:13)
--- NOTE | 2017-07-22 11:29 | PCM.SURG1 ---
Surgeon's Initial Post Op Note - Surgeon's Notes Surgeon: [employer] Analyst: [id number] Type of Anesthesia: IV Sedation, Local Pre-Operative Diagnosis: ESRD Operative Findings: see op note Post-Operative Diagnosis: ESRD Operation Performed: R IJ permacath Specimen/Specimens Removed: N/A Estimated Blood Loss: EBL {In ML}: 20 Blood Products Given: N/A Drains Used: No Drains Post-Op Condition: Good Date of Surgery/Procedure: 07/22/17 Time of Surgery/Procedure: 10:45
--- NOTE | 2017-07-22 11:47 | RAD ---
HISTORY: R IJ permacath placement COMPARISON: Chest x-ray performed 07/18/17 TECHNIQUE: Chest, one view. FINDINGS: Examination limited by habitus. Right IJ approach dialysis catheter with distal tips at the cavoatrial junction/proximal aorta. LUNGS: There is bilateral perihilar haziness with more dense opacities on the right greater than left, representing asymmetric edema versus pneumonia. Please note that chest x-ray has limited sensitivity for the detection of pulmonary masses. PLEURA: No significant pleural effusion identified. No definite pneumothorax . CARDIOVASCULAR: Cardiomegaly. OSSEOUS STRUCTURES: Degenerative changes of the spine. VISUALIZED UPPER ABDOMEN: Unremarkable. OTHER FINDINGS: None. IMPRESSION: Right IJ approach dialysis catheter. Asymmetric edema versus pneumonia. Correlate clinically.
[2017-07-22] MEDS ORDERED: Paricalcitol 2 mcg/ml Inj IV ONE ×2 (12:05→16:00)
--- NOTE | 2017-07-22 14:22 | RAD ---
PROCEDURE: Intraoperative Fluoroscopy. HISTORY: RENAL FAILURE FINDINGS: Fluoroscopic assistance was provided for right-sided PermCath placement. Please refer to the operative report from
--- NOTE | 2017-07-22 14:49 | VASCLAB ---
PROCEDURE: Bilateral Upper Extremity Venous Mapping HISTORY: ESRD, Vein mapping, Pre-op AV Fistula PRIORS: None. TECHNIQUE: Bilateral upper extremity, internal jugular, subclavian, axillary, brachial, ulnar, radial, basilic and upper cephalic veins were evaluated. Flow was assessed with color Doppler, compressibility, assessment of phasic flow and augmentation response. Report prepared by HUI Mercado FINDINGS: RIGHT: 1. Internal Jugular Vein: Compressibility - Fully compressible: Thrombus - None : Flow - Phasic 2. Subclavian Vein:Compressibility - Fully compressible: Thrombus - None : Flow - Phasic 3. Axillary Vein: Compressibility - Fully compressible: Thrombus - None 4. Brachial Vein: Compressibility - Fully compressible: Thrombus - None 5. Ulnar Vein:Compressibility - Fully compressible: Thrombus - None 6. Radial Vein:Compressibility - Fully compressible: Thrombus - None 7. Cephalic Vein: Compressibility - Fully compressible: thrombus - None 7.1. Upper Arm: Proximal Diameter: 0.60cm. Mid Diameter: 0.58cm. Distal Diameter: 0.81cm. At antecubital level: 0.43 c.m., one branch 0.41 c.m. 7.2. Forearm: Proximal Diameter: 0.35cm. Mid Diameter:0.34cm. Distal Diameter: 0.24cm *Two distal branches: 0.19 c.m. and 0.37 c.m. 8. Basilic Vein:Compressibility - Fully compressible: thrombus - None 8.1. Upper Arm:Proximal Diameter: 0.56cm. Mid Diameter: 0.65cm. Distal Diameter: 0.52cm. 8.2. Forearm: Proximal Diameter: 0.46cm. Mid Diameter:0.35cm. Distal Diameter: 0.38cm. LEFT: 1. Internal Jugular Vein: Compressibility - Fully compressible: Thrombus - None : Flow - Phasic 2. Subclavian Vein:Compressibility - Fully compressible: Thrombus - None : Flow - Phasic 3. Axillary Vein: Compressibility - Fully compressible: Thrombus - None 4. Brachial Vein: Compressibility - Fully compressible: Thrombus - None 5. Ulnar Vein:Compressibility - Fully compressible: Thrombus - None 6. Radial Vein:Compressibility - Fully compressible: Thrombus - None 7. Cephalic Vein: Compressibility - Fully compressible: thrombus - None 7.1. Upper Arm: Proximal Diameter: 0.57cm. Mid Diameter: 0.57cm. Distal Diameter: 0.55cm. 7.2. Forearm: Proximal Diameter: 0.34cm. Mid Diameter:0.32cm. Distal Diameter: 0.30cm 8. Basilic Vein:Compressibility - Fully compressible: thrombus - None 8.1. Upper Arm:Proximal Diameter: 0.57cm. Mid Diameter: 0.60cm. Distal Diameter: 0.45cm. At antecubital level 0.48 c.m., *two branches: 0.38 c.m. and 0.32 c.m. 8.2. Forearm: Proximal Diameter: 0.43cm. Mid Diameter:0.39cm. Distal Diameter: 0.36cm. OTHER FINDINGS: Right: None. Left: None. IMPRESSION: 1. No evidence of venous thrombosis in bilateral upper extremities. 2. Please refer to the above listed measurements for vein size.
[2017-07-22] MEDS ORDERED: Ferric Sodium Gluconat Complex 62.5 mg/5 ml Vial ONE (15:18)
[2017-07-22] MEDS: Epoetin Alfa 10,000 unit/ml Dialysis IV SCH (16:11)
--- NOTE | 2017-07-22 17:13 | CP.PCM.PN ---
Subjective - Date & Time of Evaluation Date of Evaluation: 07/22/17 Time of Evaluation: 09:00 - Subjective Subjective: The patient was seen and examined this morning. He is going to the OR for right IJ permacath placement today. He states that his breathing remains the same. He is still having visible difficulty keeping up a long conversation. He states that it's hard to rest in the hospital because of his sleep apnea as well. The patient denies fever, chills, chest pain, palpitations, cough, sputum production , peripheral edema, and hemoptysis. He admits to weakness, fatigue, shortness of breath, and dyspnea. Vitals signs: Temperature: 98.1F Pulse: 74 bpm bpm Blood pressure: 196/112 mm Hg Respiratory rate: 20 brpm Oxygen saturation: 96% on RA Physical examination: General: no acute distress, atraumatic, normocephalic Cardiovascular: RRR, +s1, +s2, +s3 Pulmonary: decreased expiratory flow, CTA b/l, no wheezing/rales/rhonchi Labs: Assessment & Plan Shortness of breath The patient's shortness of breath is likely of multifactorial etiology due to pulmonary vascular congestion secondary to CHF, asthma exacerbation, sleep apnea , and obesity hypoventilation syndrome. EKG: Revealed normal sinus rhythm, nonspecific T wave abnormalities, and a prolonged QT interval. CXR 07/15/2017: Revealed diffuse increased interstitial lung markings suggestive for venous congestion versus edema versus interstitial infiltrates with mild cardiomegaly. Echocardiogram: Revealed mild dilation of the left ventricle, borderline to mild concentric LVH, mild to moderately impaired systolic function, LVEF 45-45% , global hypokinesis of the LV, Grade I abnormal relaxation pattern on transmitral doppler, calcified/sclerotic aortic valve, mild annular calcification, trace to mild MR, mild TR, and trace MI. CXR 07/18/2017: Revealed bilateral perihilar haziness with more dense opacities in the right lung representing asymmetric edema versus pneumonia. Close clinical surveillance of the patient's respiratory status is recommended, possible bilateral pleural effusions. Continue cervedilol, clonidine, furosemide, hydralazine, and rosuvastatin to optimize patient's CHF and hypertension Continue albuterol inhaler, ipratropium, budesonide, guaifenesin, and montelukast for asthma exacerbation Continue empiric antibiotics due to severe comorbidities Continue CPAP for patient's sleep apnea Consider sleep study Objective - Vital Signs/Intake and Output Vital Signs (last 24 hours): Temp Pulse Resp BP Pulse Ox 98.2 F 75 20 166/80 H 97 07/22/17 14:55 07/22/17 16:00 07/22/17 16:00 07/22/17 16:55 07/22/17 14:55 Intake and Output: 07/22/17 07/22/17 06:59 18:59 Intake Total 350 440 Balance 350 440 - Medications Medications: Current Medications Acetaminophen/Codeine Phosphate (Tylenol/Codeine 300 Mg/30 Mg) 1 ea PO Q6 PRN PRN Reason: Pain, severe (8-10) Last Admin: 07/22/17 00:49 Dose: 1 ea Albuterol Sulfate (Albuterol 0.083% Inhal [place] (2.5 Mg/3 Ml) Ud) 2.5 mg INH ONCE PRN PRN Reason: Wheezing Budesonide (Pulmicort Respules) 0.5 mg INH RQ12 [facility] Last Admin: 07/22/17 08:30 Dose: Not Given Carvedilol (Coreg) 12.5 mg PO BID [facility] Last Admin: 07/22/17 09:39 Dose: 12.5 mg Clonidine HCl (Catapres) 0.1 mg PO Q8 [facility] Last Admin: 07/22/17 14:40 Dose: Not Given Enoxaparin Sodium (Lovenox) 30 mg SC DAILY [facility] Last Admin: 07/22/17 09:38 Dose: Not Given Epoetin Ant (Procrit) 10,000 unit IV TTS [facility] Last Admin: 07/22/17 16:11 Dose: 10,000 unit Furosemide (Lasix) 40 mg IVP Q12 [facility] Last Admin: 07/22/17 09:38 Dose: 40 mg Guaifenesin (Mucinex La) 600 mg PO BID [facility] Last Admin: 07/22/17 10:05 Dose: Not Given Hydralazine HCl (Apresoline) 100 mg PO Q8 [facility] Last Admin: 07/22/17 14:40 Dose: Not Given Ceftriaxone Sodium 1 gm/ (Sodium Chloride) 100 mls @ 100 mls/hr IVPB DAILY [facility] Last Admin: 07/22/17 09:36 Dose: 100 mls/hr Doxycycline Hyclate 100 mg/ (Sodium Chloride) 100 mls @ 100 mls/hr IVPB Q12H [facility] Last Admin: 07/22/17 08:14 Dose: 100 mls/hr Ferric Sodium Gluconate Complex 125 mg/ Sodium Chloride 110 mls @ 110 mls/hr IVPB DAILY [facility] Stop: 07/25/17 10:01 Last Admin: 07/22/17 10:05 Dose: Not Given Ipratropium [place] (Atrovent) 0.5 mg IH RQ6 [facility] Last Admin: 07/22/17 13:46 Dose: Not Given Montelukast Sodium (Singulair) 10 mg PO DAILY [facility] Last Admin: 07/22/17 09:39 Dose: 10 mg Pantoprazole Sodium (Protonix Ec Tab) 40 mg PO DAILY [facility] Last Admin: 07/22/17 09:39 Dose: 40 mg Rosuvastatin Calcium (Crestor) 10 mg PO HS [facility] Last Admin: 07/21/17 22:00 Dose: 10 mg Sevelamer Carbonate (Renvela) 800 mg PO TIDCC [facility] Last Admin: 07/22/17 12:00 Dose: Not Given Vitamin B Complex/Vit C/Folic Acid (Nephro-Berry) 1 tab PO 0800 [facility] Last Admin: 07/22/17 08:37 Dose: Not Given - Labs Labs: 07/22/17 07:50 07/22/17 07:50 PT 11.7 SECONDS (9.7-12.2) 07/16/17 13:57 INR 1.0 07/16/17 13:57 APTT 30 SECONDS (21-34) 07/16/17 13:57
--- NOTE | 2017-07-22 21:17 | CP.PCM.PN ---
Subjective - Date & Time of Evaluation Date of Evaluation: 07/22/17 Time of Evaluation: 17:00 - Subjective Subjective: The patient was seen and examined this morning. He is going to the OR for right IJ permacath placement today. He states that his breathing remains the same. He is still having visible difficulty keeping up a long conversation. He states that it's hard to rest in the hospital because of his sleep apnea as well. The patient denies fever, chills, chest pain, palpitations, cough, sputum production , peripheral edema, and hemoptysis. He admits to weakness, fatigue, shortness of breath, and dyspnea. Objective - Vital Signs/Intake and Output Vital Signs (last 24 hours): Temp Pulse Resp BP Pulse Ox 98.3 F 78 20 147/73 95 07/22/17 19:00 07/22/17 19:00 07/22/17 19:00 07/22/17 19:32 07/22/17 19:00 Intake and Output: 07/22/17 07/23/17 18:59 06:59 Intake Total 440 Balance 440 - Medications Medications: Current Medications Acetaminophen/Codeine Phosphate (Tylenol/Codeine 300 Mg/30 Mg) 1 ea PO Q6 PRN PRN Reason: Pain, severe (8-10) Last Admin: 07/22/17 19:37 Dose: 1 ea Albuterol Sulfate (Albuterol 0.083% Inhal Madie (2.5 Mg/3 Ml) Ud) 2.5 mg INH ONCE PRN PRN Reason: Wheezing Budesonide (Pulmicort Respules) 0.5 mg INH RQ12 [facility] Last Admin: 07/22/17 08:30 Dose: Not Given Carvedilol (Coreg) 12.5 mg PO BID [facility] Last Admin: 07/22/17 19:32 Dose: 12.5 mg Clonidine HCl (Catapres) 0.1 mg PO Q8 [facility] Last Admin: 07/22/17 14:40 Dose: Not Given Enoxaparin Sodium (Lovenox) 30 mg SC DAILY [facility] Last Admin: 07/22/17 09:38 Dose: Not Given Epoetin Ant (Procrit) 10,000 unit IV TTS [facility] Last Admin: 07/22/17 16:11 Dose: 10,000 unit Furosemide (Lasix) 40 mg IVP Q12 [facility] Last Admin: 07/22/17 09:38 Dose: 40 mg Guaifenesin (Mucinex La) 600 mg PO BID [facility] Last Admin: 07/22/17 19:32 Dose: 600 mg Hydralazine HCl (Apresoline) 100 mg PO Q8 [facility] Last Admin: 07/22/17 14:40 Dose: Not Given Ceftriaxone Sodium 1 gm/ (Sodium Chloride) 100 mls @ 100 mls/hr IVPB DAILY [facility] Last Admin: 07/22/17 09:36 Dose: 100 mls/hr Doxycycline Hyclate 100 mg/ (Sodium Chloride) 100 mls @ 100 mls/hr IVPB Q12H [facility] Last Admin: 07/22/17 08:14 Dose: 100 mls/hr Ferric Sodium Gluconate Complex 125 mg/ Sodium Chloride 110 mls @ 110 mls/hr IVPB DAILY [facility] Stop: 07/25/17 10:01 Last Admin: 07/22/17 10:05 Dose: Not Given Ipratropium [place] (Atrovent) 0.5 mg IH RQ6 [facility] Last Admin: 07/22/17 13:46 Dose: Not Given Montelukast Sodium (Singulair) 10 mg PO DAILY [facility] Last Admin: 07/22/17 09:39 Dose: 10 mg Pantoprazole Sodium (Protonix Ec Tab) 40 mg PO DAILY [facility] Last Admin: 07/22/17 09:39 Dose: 40 mg Rosuvastatin Calcium (Crestor) 10 mg PO HS [facility] Last Admin: 07/21/17 22:00 Dose: 10 mg Sevelamer Carbonate (Renvela) 800 mg PO TIDCC [facility] Last Admin: 07/22/17 19:33 Dose: 800 mg Vitamin B Complex/Vit C/Folic Acid (Nephro-Berry) 1 tab PO 0800 [facility] Last Admin: 07/22/17 08:37 Dose: Not Given - Labs Labs: 07/22/17 07:50 07/22/17 07:50 PT 11.7 SECONDS (9.7-12.2) 07/16/17 13:57 INR 1.0 07/16/17 13:57 APTT 30 SECONDS (21-34) 07/16/17 13:57 Assessment and Plan (1) Chronic congestive heart failure Status: Acute (2) Dyspnea Status: Acute (3) Hypertension Status: Acute (4) Renal failure Status: Acute (5) Elevated troponin Status: Acute (6) Anemia Status: Acute
--- NOTE | 2017-07-22 22:49 | OP ---
PROCEDURE DATE: 07/22/2017 PREOPERATIVE DIAGNOSIS: Renal failure. POSTOPERATIVE DIAGNOSIS: Renal failure. PROCEDURE CARRIED OUT: Perm-A-Cath, right jugular vein with C-arm fluoroscopy with ultrasound-guided puncture and micropuncture technique. SURGEON: Pedrito Shaw Jr., MD. GARDE MANAGER: Dr. Chang. ANESTHESIOLOGIST: Dr. Noland and Angelic Johansen CRNA. INDICATIONS: The patient is a middle-aged man with renal insufficiency, now requiring urgent dialysis. Previously, he had been scheduled to have creation of a fistula; however, while he was lying flat etc., he was having more difficulty breathing and [employer] insurance recommended a Perm-A-Cath replaced. OPERATIVE FINDING: Catheter was inserted uneventfully via the jugular vein. DESCRIPTION OF PROCEDURE: Patient was given local anesthesia. Using ultrasound guidance and micropuncture technique, the right jugular vein was punctured. Under fluoroscopic control, a guidewire was advanced centrally. This was exchanged for an 0.035 wire and then the sheath dilator was passed over this. This was tunneled then on the chest wall, brought out on the chest wall and terminating via the jugular vein in the superior vena cava. There was excellent flow and return. Catheter was secured to skin with nylon sutures and the procedure was terminated. Ultrasound images of the neck showed that the vein was 16 mm in diameter, normal compressibility and no evidence of intraluminal thrombosis. Pedrito Shaw Jr., MD
--- NOTE | 2017-07-23 | PN ---
DATE: LOCATION: [facility], bed A. SUBJECTIVE: This is a 56-year-old male seen and examined in rounds, post chest Perm-A-Cath, which appears to be with dry and intact dressing. The entire chart is reviewed including but not limited to the most recent lab and radiology study results, current and the previous medication lists, current and the previous medical events. The most recent chest x-ray done today showed dialysis catheter is in place with possible mild pulmonary edema versus pneumonia. Patient reported mild nausea with dyspepsia but no reported vomiting. Today's lab results showed hemoglobin of 8.8, hematocrit 25.8 with white blood cells of 11.2 but a normal platelet count with blood glucose level of 152, increased BUN of 79, creatinine 5.4, low calcium 8.2 with increased phosphorus 6.0 and low albumin, 3.4. PHYSICAL EXAMINATION: GENERAL: A 56-year-old male with slight respiratory distress. VITAL SIGNS: Afebrile with pulse of 66, respiratory rate 20 to 22, blood pressure of 162/92. HEENT: Show mildly pale dry oral mucous membrane, nonicteric sclerae. LUNGS: A few scattered crepitation with a few rales bilaterally. HEART: Positive S1 and S2. ABDOMEN: Soft, bowel sounds are present with slight generalized tenderness. No mass or organomegaly. No rebound tenderness or guarding. EXTREMITIES: Significant clubbing, cyanosis but mild lower extremity edematous changes. RECTAL: Deferred due to the patient's clinical status. It has to be mentioned that the patient denied any chest pain, chills, or fever but reported restless and anxiety due to his sleep apnea. IMPRESSION: 1. Re-exacerbation of peptic ulcer disease. 2. Renal failure, on hemodialysis. 3. Known history of but not limited to bronchial asthma, sleep apnea, hypertension, coronary artery disease. 4. Recent reported congestive heart failure versus pneumonia. 5. Elevated troponin level, with Cardiology followup. SUGGESTION: 1. Continue current management. 2. No aggressive GI workup in the meantime until the patient is more stable clinically, otherwise conservative treatment to follow. Holly Garcia MD [facility] # [id number]
[2017-07-23] MEDS: Ipratropium 0.02% Inhal Soln (0.5 mg/2.5 ml) UD IH SCH ×4 (01:36→21:52)
[2017-07-23] MEDS: Budesonide 0.5 mg/2 ml Inhal Susp UD INH SCH ×2 (07:17→21:52)
[2017-07-23] MEDS: Multivitamin Vitamin B Complex (Nephro-Vite) Tab PO SCH (08:12)
[2017-07-23] MEDS: Enoxaparin 30 mg Syringe SC SCH (09:01)
[2017-07-23] MEDS: guaiFENesin 600 mg ER Tab PO SCH ×2 (09:05→20:36)
[2017-07-23] MEDS: Pantoprazole 40 mg EC Tab PO SCH (09:35)
[2017-07-23] MEDS: Ferric Sodium Gluconat Complex 125 MG in Sodium Chloride 0.9% 100 ML IVPB SCH (09:35)
--- NOTE | 2017-07-23 09:44 | PN ---
DATE: 07/22/2017 FOLLOWUP RENAL CONSULTATION LOCATION: The patient is located in room 671, bed A. REQUESTED BY: Tobin Witt MD REASON FOR FOLLOWUP: Diabetes, hypertension, renal failure, proteinuria, left renal mass, for further evaluation. HISTORY OF PRESENT ILLNESS: Mr. Mehta is a 56-year-old obese male with a history of long-standing diabetes, hypertension, asthma, nephrotic-range proteinuria, left renal mass, who was admitted with dyspnea on exertion, shortness of breath, and complains of exertional dyspnea even when he walks to the bathroom and this morning, patient was not able to lie down flat and complaining of shortness of breath. I discussed with the patient possible need for initiation of hemodialysis and the need for Perm-A-Cath placement at this time. Patient was initially reluctant to get a Perm-A-Cath, but subsequently agreed and patient had a Perm-A-Cath placement this morning by Dr. Shaw. Patient was again seen in the Recovery after the Perm-A-Cath, not in distress. Denies any chest pain. Denies any palpitation. Denies any nausea, vomiting, diarrhea. Less short of breath in the Recovery. PHYSICAL EXAMINATION: GENERAL: Mr. Mehta is a 56-year-old obese male, well built, well nourished, complaining of mild shortness of breath in the sitting position. VITAL SIGNS: As follows, his blood pressure this morning 203/105, respirations about 24, pulse 82, temperature 98, saturation 97% on 4 liters nasal cannula. Height 5 feet 6 inches and weight is 283 pounds. HEENT: Pupils normal and reactive to light and accommodation. Conjunctivae pink. Sclerae are anicteric. Tongue is moist. Trachea is midline. LUNGS: Symmetrical on both sides. Bilateral breath sounds present. Occasional basilar crackles present. CARDIOVASCULAR SYSTEM: [place] at the fifth intercostal space, midclavicular line. S1 and S2 audible. No murmur or gallop. ABDOMEN: Protuberant, soft, tympanic. No guarding. No hepatosplenomegaly. CENTRAL NERVOUS SYSTEM: Patient is alert, awake, oriented x3. Sensorimotor system is grossly within normal limits. Cranial nerves II through XII are grossly intact. EXTREMITIES: No cyanosis, no clubbing. Patient has 1+ edema in both lower extremities. CURRENT MEDICATIONS: Include as follows; albuterol inhaler, hydralazine 100 mg p.o. q. 8 hours, Atrovent 0.5 mg inhaler q. 6 hours, Catapres 0.1 mg p.o. q. 8 hours, Rocephin 1 g daily, Coreg 12.5 mg p.o. b.i.d., Crestor 10 mg at bedtime, doxycycline 100 mg IV q. 12 hours, ferric gluconate 125 mg daily, Lasix 40 mg daily, Lovenox 30 mg subcu daily, Mucinex 600 mg p.o. b.i.d., Nephro-Berry one tablet daily, Procrit 10,000 units three times a week, Protonix 40 mg p.o. daily, Pulmicort, Renvela, Singulair, and Tylenol with Codeine. LABORATORY DATA: Includes as follows, as of 07/22/2017, WBC 11.2, hemoglobin 8.8, hematocrit is 25.8, platelet 193. Sodium 135, potassium 4.3, chloride 100, CO2 of 24, BUN 79, creatinine 5.4 with a GFR about 11 and glucose is 120, calcium 8.2, phosphorous 6.0, total bilirubin 0.4, AST 18, ALT 29, alkaline phosphatase 40, total protein 6.4, albumin is 3.4. ASSESSMENT: In summary, Mr. Mehta is a 56-year-old middle-aged obese male with a history of longstanding diabetes, hypertension, asthma, proteinuria with poor left ventricular function, about 40 to 45%, and diffuse hypokinesis of the left ventricle, left renal mass, was admitted with shortness of breath and dyspnea on exertion. 1. Chronic kidney disease V. 2. Exacerbation of asthma. 3. Hypertension. 4. Diabetes. 5. Nephrotic-range proteinuria. 6. Anemia secondary to renal failure and iron deficiency anemia. 7. Left renal mass, rule out malignancy. PLAN: I discussed with the patient in detail regarding possible need for hemodialysis. Patient was initially reluctant to get a Perm-A-Cath and subsequently patient had agreed for Perm-A-Cath placement and undergo hemodialysis. Patient signed informed consent for the dialysis. Patient is scheduled for hemodialysis this afternoon. Continue his antihypertensive medications, clonidine, hydralazine, Coreg and also continue Procrit, Nephro-Berry, and Renvela. Continue his albuterol, Atrovent, Singulair, and Pulmicort and follow with Pulmonary and also consider Urology consultation for evaluation of the left renal mass. Patient may need CT scan with contrast for further evaluation of the left renal mass. We will follow with you. Thank you for allowing me to participate in your patient's care. Case discussed with Dr. Shaw also. Talya Vogel MD
--- NOTE | 2017-07-23 11:23 | PN ---
DATE: LOCATION: [facility], bed A. SUBJECTIVE: This is a 56-year-old male, seen and examined early in rounds without significant clinical changes or reported active bleeding post PermCath insertion for hemodialysis. The patient still has mild intermittent period of abdominal pain with mild nausea, but no reported active bleeding. No reported chest pain or significant shortness of breath. No chills or fever reported post surgery. The entire chart is reviewed including but not limited to the most recent lab and radiology study results, current and the previous medication list, current and the previous medical events. Today's labs still pending. The patient's white blood cells are still elevated as per yesterday to 11.2 with low hemoglobin 8.8, low hematocrit 25.8 with normal platelet count with blood glucose level 167. PHYSICAL EXAMINATION: GENERAL: A 56-year-old male. Appeared to be awake, alert, oriented. VITAL SIGNS: Afebrile with blood pressure 140/70, heart rate 74, respiratory rate 20 to 22. HEENT: Showed mildly pale dry oral mucous membrane. Nonicteric sclerae. LUNGS: Few scattered crepitation with decreased air entry at bases. HEART: Positive S1 and S2. ABDOMEN: Soft. Bowel sounds are present. No mass or organomegaly. No rebound tenderness or guarding. EXTREMITIES: Lower extremities, mild edematous changes. No clubbing or cyanosis. NEUROLOGIC: No reported new neurological deficits, sensory or motor. It has to be mentioned that the patient is still appearing in the physical examination intermittent period of some shortness of breath, but denied any productive cough, hemoptysis or hematemesis, but generalized weakness and malaise with dyspnea on exertion, stated that related to his known history of sleep apnea. IMPRESSION: 1. Anemia that could be secondary to his renal failure versus gastrointestinal blood loss, upper versus lower. 2. To rule out occult gastrointestinal malignancy. 3. Congestive heart failure. 4. Known history of chronic obstructive pulmonary disease, hypertension, coronary artery disease with sleep apnea. 5. Elevated troponin level. SUGGESTION: 1. Agree with your plan. 2. Antireflux measure. 3. Keeping in mind that the patient's clinical status, no aggressive GI workup to be scheduled in the meantime and close observation to follow. 4. Guaiac all the stool daily x3. 5. We will discuss the case at length with the admitting medical staff. Holly Garcia MD
--- NOTE | 2017-07-23 12:28 | CP.PCM.PN ---
Subjective - Date & Time of Evaluation Date of Evaluation: 07/23/17 Time of Evaluation: 06:58 - Subjective Subjective: Vascular Surgery Note for Dr. Shaw Patient seen and examined at bedside. No acute event overnight. He is s/p permacath insertion POD#1. Patient states breathing is better today. He feels more rested. Patient has mild pain at surgical site. Pain is controlled. Tolerating diet. No other complaints. Objective - Vital Signs/Intake and Output Vital Signs (last 24 hours): Temp Pulse Resp BP Pulse Ox 98.4 F 71 20 147/73 96 07/23/17 08:47 07/23/17 08:47 07/23/17 08:47 07/23/17 09:05 07/23/17 08:47 Intake and Output: 07/23/17 07/23/17 06:59 18:59 Intake Total 250 Balance 250 - Medications Medications: Current Medications Acetaminophen/Codeine Phosphate (Tylenol/Codeine 300 Mg/30 Mg) 1 ea PO Q6 PRN PRN Reason: Pain, severe (8-10) Last Admin: 07/22/17 19:37 Dose: 1 ea Albuterol Sulfate (Albuterol 0.083% Inhal Madie (2.5 Mg/3 Ml) Ud) 2.5 mg INH ONCE PRN PRN Reason: Wheezing Budesonide (Pulmicort Respules) 0.5 mg INH RQ12 [facility] Last Admin: 07/23/17 07:17 Dose: Not Given Carvedilol (Coreg) 12.5 mg PO BID [facility] Last Admin: 07/23/17 09:05 Dose: 12.5 mg Clonidine HCl (Catapres) 0.1 mg PO Q8 [facility] Last Admin: 07/23/17 05:26 Dose: 0.1 mg Epoetin Ant (Procrit) 10,000 unit IV TTS [facility] Last Admin: 07/22/17 16:11 Dose: 10,000 unit Furosemide (Lasix) 40 mg IVP Q12 [facility] Last Admin: 07/23/17 09:01 Dose: 40 mg Guaifenesin (Mucinex La) 600 mg PO BID [facility] Last Admin: 07/23/17 09:05 Dose: 600 mg Hydralazine HCl (Apresoline) 100 mg PO Q8 [facility] Last Admin: 07/23/17 05:25 Dose: 100 mg Doxycycline Hyclate 100 mg/ (Sodium Chloride) 100 mls @ 100 mls/hr IVPB Q12H [facility] Last Admin: 07/23/17 08:35 Dose: 100 mls/hr Ferric Sodium Gluconate Complex 125 mg/ Sodium Chloride 110 mls @ 110 mls/hr IVPB DAILY [facility] Stop: 07/25/17 10:01 Last Admin: 07/23/17 09:35 Dose: 110 mls/hr Ipratropium [place] (Atrovent) 0.5 mg IH RQ6 [facility] Last Admin: 07/23/17 07:17 Dose: Not Given Montelukast Sodium (Singulair) 10 mg PO DAILY [facility] Last Admin: 07/23/17 09:20 Dose: 10 mg Pantoprazole Sodium (Protonix Ec Tab) 40 mg PO DAILY [facility] Last Admin: 07/23/17 09:35 Dose: 40 mg Rosuvastatin Calcium (Crestor) 10 mg PO HS [facility] Last Admin: 07/22/17 22:16 Dose: 10 mg Sevelamer Carbonate (Renvela) 800 mg PO TIDCC [facility] Last Admin: 07/23/17 08:19 Dose: 800 mg Vitamin B Complex/Vit C/Folic Acid (Nephro-Berry) 1 tab PO 0800 [facility] Last Admin: 07/23/17 08:12 Dose: 1 tab - Labs Labs: 07/22/17 07:50 07/22/17 07:50 PT 11.7 SECONDS (9.7-12.2) 07/16/17 13:57 INR 1.0 07/16/17 13:57 APTT 30 SECONDS (21-34) 07/16/17 13:57 - Head Exam Head Exam: ATRAUMATIC, NORMOCEPHALIC - Eye Exam Eye Exam: Normal appearance - ENT Exam ENT Exam: Mucous Membranes Moist - Neck Exam Additional comments: R sided permacath - Respiratory Exam Respiratory Exam: NORMAL BREATHING PATTERN - Cardiovascular Exam Cardiovascular Exam: REGULAR RHYTHM - GI/Abdominal Exam GI & Abdominal Exam: Soft, Normal Bowel Sounds. absent: Tenderness - Extremities Exam Extremities Exam: Normal Capillary Refill - Neurological Exam Neurological Exam: Alert, Awake, Oriented x3 - Psychiatric Exam Psychiatric exam: Normal Affect, Normal Mood - Skin Skin Exam: Dry, Intact, Normal Color, Warm Assessment and Plan - Assessment and Plan (Free Text) Plan: 56 M with ESRD requiring dialysis s/p permacath insertion POD#1 -Plan for AVF creation Wednesday in OR -NPO past MN Wednesday evening -Analgesics PRN -Management as per primary -Discussed with Dr. Valeria Haider PGY1
--- NOTE | 2017-07-23 12:45 | CP.PCM.PN ---
Subjective - Date & Time of Evaluation Date of Evaluation: 07/23/17 Time of Evaluation: 09:30 - Subjective Subjective: The patient was seen and examined this morning. He is doing significantly better s/p right IJ permacath placement and hemodialysis. He states that his breathing has improved dramatically and that he was able to sleep on his back after many years. He is not having any respiratory distress currently. He is eager to try the CPAP tonight for his sleep apnea. The patient denies fever, chills, chest pain, palpitations, shortness of breath, dyspnea, cough, sputum production, peripheral edema, and hemoptysis. He admits to fatigue. Vitals signs: Temperature: 98.4F Pulse: 71 bpm Blood pressure: 145/73 mm Hg Respiratory rate: 20 brpm Oxygen saturation: 96% on RA Physical examination: General: no acute distress, atraumatic, normocephalic Cardiovascular: RRR, +s1, +s2, +s3 Pulmonary: decreased expiratory flow, CTA b/l, no wheezing/rales/rhonchi Assessment & Plan Shortness of breath - The patient's shortness of breath is likely of multifactorial etiology due to pulmonary vascular congestion secondary to CHF, asthma exacerbation, sleep apnea , and obesity hypoventilation syndrome. - EKG: Revealed normal sinus rhythm, nonspecific T wave abnormalities, and a prolonged QT interval. - CXR 07/15/2017: Revealed diffuse increased interstitial lung markings suggestive for venous congestion versus edema versus interstitial infiltrates with mild cardiomegaly. - Echocardiogram: Revealed mild dilation of the left ventricle, borderline to mild concentric LVH, mild to moderately impaired systolic function, LVEF 45-45% , global hypokinesis of the LV, Grade I abnormal relaxation pattern on transmitral doppler, calcified/sclerotic aortic valve, mild annular calcification, trace to mild MR, mild TR, and trace IN. - CXR 07/18/2017: Revealed bilateral perihilar haziness with more dense opacities in the right lung representing asymmetric edema versus pneumonia. Close clinical surveillance of the patient's respiratory status is recommended, possible bilateral pleural effusions. - Continue carvedilol, clonidine, furosemide, hydralazine, and rosuvastatin to optimize patient's CHF and hypertension - Continue albuterol inhaler, ipratropium, budesonide, guaifenesin, and montelukast for asthma exacerbation - Continue empiric antibiotics due to severe comorbidities - Consider sleep study - Have patient started on CPAP tonight for sleep apnea Objective - Vital Signs/Intake and Output Vital Signs (last 24 hours): Temp Pulse Resp BP Pulse Ox 98.4 F 71 20 147/73 96 07/23/17 08:47 07/23/17 08:47 07/23/17 08:47 07/23/17 09:05 07/23/17 08:47 Intake and Output: 07/23/17 07/23/17 06:59 18:59 Intake Total 250 Balance 250 - Medications Medications: Current Medications Acetaminophen/Codeine Phosphate (Tylenol/Codeine 300 Mg/30 Mg) 1 ea PO Q6 PRN PRN Reason: Pain, severe (8-10) Last Admin: 07/22/17 19:37 Dose: 1 ea Albuterol Sulfate (Albuterol 0.083% Inhal [place]ie (2.5 Mg/3 Ml) Ud) 2.5 mg INH ONCE PRN PRN Reason: Wheezing Budesonide (Pulmicort Respules) 0.5 mg INH RQ12 [facility] Last Admin: 07/23/17 07:17 Dose: Not Given Carvedilol (Coreg) 12.5 mg PO BID [facility] Last Admin: 07/23/17 09:05 Dose: 12.5 mg Clonidine HCl (Catapres) 0.1 mg PO Q8 [facility] Last Admin: 07/23/17 05:26 Dose: 0.1 mg Epoetin Ant (Procrit) 10,000 unit IV TTS [facility] Last Admin: 07/22/17 16:11 Dose: 10,000 unit Furosemide (Lasix) 40 mg IVP Q12 [facility] Last Admin: 07/23/17 09:01 Dose: 40 mg Guaifenesin (Mucinex La) 600 mg PO BID [facility] Last Admin: 07/23/17 09:05 Dose: 600 mg Hydralazine HCl (Apresoline) 100 mg PO Q8 [facility] Last Admin: 07/23/17 05:25 Dose: 100 mg Doxycycline Hyclate 100 mg/ (Sodium Chloride) 100 mls @ 100 mls/hr IVPB Q12H [facility] Last Admin: 07/23/17 08:35 Dose: 100 mls/hr Ferric Sodium Gluconate Complex 125 mg/ Sodium Chloride 110 mls @ 110 mls/hr IVPB DAILY [facility] Stop: 07/25/17 10:01 Last Admin: 07/23/17 09:35 Dose: 110 mls/hr Ipratropium [place] (Atrovent) 0.5 mg IH RQ6 [facility] Last Admin: 07/23/17 07:17 Dose: Not Given Montelukast Sodium (Singulair) 10 mg PO DAILY [facility] Last Admin: 07/23/17 09:20 Dose: 10 mg Pantoprazole Sodium (Protonix Ec Tab) 40 mg PO DAILY [facility] Last Admin: 07/23/17 09:35 Dose: 40 mg Rosuvastatin Calcium (Crestor) 10 mg PO HS [facility] Last Admin: 07/22/17 22:16 Dose: 10 mg Sevelamer Carbonate (Renvela) 800 mg PO TIDCC [facility] Last Admin: 07/23/17 12:30 Dose: 800 mg Vitamin B Complex/Vit C/Folic Acid (Nephro-Berry) 1 tab PO 0800 [facility] Last Admin: 07/23/17 08:12 Dose: 1 tab - Labs Labs: 07/22/17 07:50 07/22/17 07:50 PT 11.7 SECONDS (9.7-12.2) 07/16/17 13:57 INR 1.0 07/16/17 13:57 APTT 30 SECONDS (21-34) 07/16/17 13:57
[2017-07-23] MEDS ORDERED: Iodixanol 320 mg/ml 150 ml Bottle IV ONE (13:07)
--- NOTE | 2017-07-23 15:00 | CT ---
PROCEDURE: CT Abdomen and Pelvis with and without intravenous contrast HISTORY: left renal mass COMPARISON: Renal ultrasound performed 07/21/17 TECHNIQUE: Axial images of the abdomen were obtained in the pre contrast, portal venous and delayed phases of enhancement. Coronal and sagittal reformats were generated and reviewed. Contrast dose: 100 mL Visipaque IV Radiation dose: Total exam DLP = 4543.26 mGy-cm. This CT exam was performed using one or more of the following dose reduction techniques: Automated exposure control, adjustment of the mA and/or kV according to patient size, and/or use of iterative reconstruction technique. FINDINGS: LOWER THORAX: Mosaic profusion. Patchy opacities within the right lung base may reflect infiltrate. No visible pleural effusion or pneumothorax. Partially imaged cardiomegaly. LIVER: Unremarkable. GALLBLADDER AND BILE DUCTS: Unremarkable. PANCREAS: Unremarkable. SPLEEN: Unremarkable. ADRENALS: Unremarkable. KIDNEYS AND URETERS: The kidneys enhance symmetrically. No hydronephrosis or obstructing calculus identified. 4.3 cm left upper pole solid mass worrisome for renal cell carcinoma. VASCULATURE: No aortic aneurysm. BOWEL: Stomach is nondistended. Lack of oral contrast limits evaluation for bowel pathology. Bowel loops appear within normal limits of caliber without evidence of obstruction. Bowel anastomosis suture material, right abdomen. APPENDIX: The appendix is not identified. PERITONEUM: No significant free fluid. No definite free air. LYMPH NODES: No bulky adenopathy. BLADDER: Unremarkable. REPRODUCTIVE: Unremarkable. BONES: Degenerative changes of the spine. OTHER FINDINGS: None. IMPRESSION: 4.3 cm left upper pole solid appearing mass worrisome for renal cell carcinoma. Mosaic profusion may reflect small airways/vessels disease. Patchy opacities within the right lung base may reflect infiltrate.
[2017-07-23 15:09] LABS: ALBUMIN 64.6 Relative %; ALPHA-1 GLOBULIN 5.2 Relative %
--- NOTE | 2017-07-23 22:56 | CP.PCM.PN ---
Subjective - Date & Time of Evaluation Date of Evaluation: 07/23/17 Time of Evaluation: 12:00 - Subjective Subjective: improved sob after HD, repeat in AM, no arrhythmia so far, EF 45-50% Objective - Vital Signs/Intake and Output Vital Signs (last 24 hours): Temp Pulse Resp BP Pulse Ox 98.1 F 74 20 135/70 98 07/23/17 21:21 07/23/17 21:21 07/23/17 21:21 07/23/17 22:19 07/23/17 21:21 - Medications Medications: Current Medications Acetaminophen/Codeine Phosphate (Tylenol/Codeine 300 Mg/30 Mg) 1 ea PO Q6 PRN PRN Reason: Pain, severe (8-10) Last Admin: 07/22/17 19:37 Dose: 1 ea Albuterol Sulfate (Albuterol 0.083% Inhal Madie (2.5 Mg/3 Ml) Ud) 2.5 mg INH ONCE PRN PRN Reason: Wheezing Budesonide (Pulmicort Respules) 0.5 mg INH RQ12 [facility] Last Admin: 07/23/17 21:52 Dose: Not Given Carvedilol (Coreg) 12.5 mg PO BID [facility] Last Admin: 07/23/17 20:35 Dose: 12.5 mg Clonidine HCl (Catapres) 0.1 mg PO Q8 [facility] Last Admin: 07/23/17 22:20 Dose: 0.1 mg Epoetin Ant (Procrit) 10,000 unit IV TTS [facility] Last Admin: 07/22/17 16:11 Dose: 10,000 unit Furosemide (Lasix) 40 mg IVP Q12 [facility] Last Admin: 07/23/17 22:19 Dose: 40 mg Guaifenesin (Mucinex La) 600 mg PO BID [facility] Last Admin: 07/23/17 20:36 Dose: 600 mg Hydralazine HCl (Apresoline) 100 mg PO Q8 [facility] Last Admin: 07/23/17 22:20 Dose: 100 mg Doxycycline Hyclate 100 mg/ (Sodium Chloride) 100 mls @ 100 mls/hr IVPB Q12H [facility] Last Admin: 07/23/17 20:36 Dose: 100 mls/hr Ferric Sodium Gluconate Complex 125 mg/ Sodium Chloride 110 mls @ 110 mls/hr IVPB DAILY [facility] Stop: 07/25/17 10:01 Last Admin: 07/23/17 09:35 Dose: 110 mls/hr Ipratropium [place] (Atrovent) 0.5 mg IH RQ6 [facility] Last Admin: 07/23/17 21:52 Dose: Not Given Montelukast Sodium (Singulair) 10 mg PO DAILY [facility] Last Admin: 07/23/17 09:20 Dose: 10 mg Pantoprazole Sodium (Protonix Ec Tab) 40 mg PO DAILY [facility] Last Admin: 07/23/17 09:35 Dose: 40 mg Rosuvastatin Calcium (Crestor) 10 mg PO HS [facility] Last Admin: 07/23/17 22:20 Dose: 10 mg Sevelamer Carbonate (Renvela) 800 mg PO TIDCC [facility] Last Admin: 07/23/17 20:36 Dose: 800 mg Vitamin B Complex/Vit C/Folic Acid (Nephro-Berry) 1 tab PO 0800 [facility] Last Admin: 07/23/17 08:12 Dose: 1 tab - Labs Labs: 07/22/17 07:50 07/22/17 07:50 PT 11.7 SECONDS (9.7-12.2) 07/16/17 13:57 INR 1.0 07/16/17 13:57 APTT 30 SECONDS (21-34) 07/16/17 13:57 - Constitutional Appears: Non-toxic - Head Exam Head Exam: ATRAUMATIC - Eye Exam Eye Exam: EOMI - ENT Exam ENT Exam: Mucous Membranes Moist - Neck Exam Neck Exam: absent: Lymphadenopathy, Thyromegaly - Respiratory Exam Respiratory Exam: Clear to Ausculation Bilateral. absent: Rales - Cardiovascular Exam Cardiovascular Exam: REGULAR RHYTHM, Murmur - GI/Abdominal Exam GI & Abdominal Exam: Normal Bowel Sounds. absent: Organomegaly - Rectal Exam Rectal Exam: Deferred - Extremities Exam Extremities Exam: absent: Calf Tenderness - Neurological Exam Neurological Exam: Alert, Oriented x3 - Psychiatric Exam Psychiatric exam: Normal Mood - Skin Skin Exam: Dry Assessment and Plan (1) Shortness of breath Status: Acute (2) Elevated troponin Status: Acute (3) Renal failure Status: Acute
--- NOTE | 2017-07-23 23:06 | CP.PCM.PN ---
Subjective - Date & Time of Evaluation Date of Evaluation: 07/23/17 Time of Evaluation: 19:40 - Subjective Subjective: Pt seen and evalauted, is on HD improved sob after HD, repeat in AM, no arrhythmia so far, EF 45-50%, he is feeling better Objective - Vital Signs/Intake and Output Vital Signs (last 24 hours): Temp Pulse Resp BP Pulse Ox 98.1 F 74 20 135/70 98 07/23/17 21:21 07/23/17 21:21 07/23/17 21:21 07/23/17 22:19 07/23/17 21:21 - Medications Medications: Current Medications Acetaminophen/Codeine Phosphate (Tylenol/Codeine 300 Mg/30 Mg) 1 ea PO Q6 PRN PRN Reason: Pain, severe (8-10) Last Admin: 07/22/17 19:37 Dose: 1 ea Albuterol Sulfate (Albuterol 0.083% Inhal Madie (2.5 Mg/3 Ml) Ud) 2.5 mg INH ONCE PRN PRN Reason: Wheezing Budesonide (Pulmicort Respules) 0.5 mg INH RQ12 [facility] Last Admin: 07/23/17 21:52 Dose: Not Given Carvedilol (Coreg) 12.5 mg PO BID [facility] Last Admin: 07/23/17 20:35 Dose: 12.5 mg Clonidine HCl (Catapres) 0.1 mg PO Q8 [facility] Last Admin: 07/23/17 22:20 Dose: 0.1 mg Epoetin Ant (Procrit) 10,000 unit IV TTS [facility] Last Admin: 07/22/17 16:11 Dose: 10,000 unit Furosemide (Lasix) 40 mg IVP Q12 [facility] Last Admin: 07/23/17 22:19 Dose: 40 mg Guaifenesin (Mucinex La) 600 mg PO BID [facility] Last Admin: 07/23/17 20:36 Dose: 600 mg Hydralazine HCl (Apresoline) 100 mg PO Q8 [facility] Last Admin: 07/23/17 22:20 Dose: 100 mg Doxycycline Hyclate 100 mg/ (Sodium Chloride) 100 mls @ 100 mls/hr IVPB Q12H [facility] Last Admin: 07/23/17 20:36 Dose: 100 mls/hr Ferric Sodium Gluconate Complex 125 mg/ Sodium Chloride 110 mls @ 110 mls/hr IVPB DAILY [facility] Stop: 07/25/17 10:01 Last Admin: 07/23/17 09:35 Dose: 110 mls/hr Ipratropium [place] (Atrovent) 0.5 mg IH RQ6 [facility] Last Admin: 07/23/17 21:52 Dose: Not Given Montelukast Sodium (Singulair) 10 mg PO DAILY [facility] Last Admin: 07/23/17 09:20 Dose: 10 mg Pantoprazole Sodium (Protonix Ec Tab) 40 mg PO DAILY [facility] Last Admin: 07/23/17 09:35 Dose: 40 mg Rosuvastatin Calcium (Crestor) 10 mg PO HS [facility] Last Admin: 07/23/17 22:20 Dose: 10 mg Sevelamer Carbonate (Renvela) 800 mg PO TIDCC [facility] Last Admin: 07/23/17 20:36 Dose: 800 mg Vitamin B Complex/Vit C/Folic Acid (Nephro-Berry) 1 tab PO 0800 [facility] Last Admin: 07/23/17 08:12 Dose: 1 tab - Labs Labs: 07/22/17 07:50 07/22/17 07:50 PT 11.7 SECONDS (9.7-12.2) 07/16/17 13:57 INR 1.0 07/16/17 13:57 APTT 30 SECONDS (21-34) 07/16/17 13:57 - Constitutional Appears: No Acute Distress - Head Exam Head Exam: ATRAUMATIC, NORMAL INSPECTION, NORMOCEPHALIC - Eye Exam Eye Exam: EOMI, Normal appearance, PERRL Pupil Exam: NORMAL ACCOMODATION, PERRL - Neck Exam Neck Exam: Full ROM, Normal Inspection. absent: Lymphadenopathy - Respiratory Exam Respiratory Exam: Decreased Breath Sounds, Rales - Cardiovascular Exam Cardiovascular Exam: REGULAR RHYTHM, +S1, +S2. absent: Murmur - GI/Abdominal Exam GI & Abdominal Exam: Soft, Normal Bowel Sounds. absent: Tenderness Assessment and Plan (1) Chronic congestive heart failure Status: Acute (2) Dyspnea Status: Acute (3) Hypertension Status: Acute (4) Renal failure Status: Acute (5) Elevated troponin Status: Acute (6) Anemia Status: Acute
--- NOTE | 2017-07-23 23:35 | CP.PCM.PN ---
Subjective - Date & Time of Evaluation Date of Evaluation: 07/23/17 Time of Evaluation: 09:05 - Subjective Subjective: pt is seen and examined , follow up consult is dictated #[phone] for hd today after ct scan Objective - Vital Signs/Intake and Output Vital Signs (last 24 hours): Temp Pulse Resp BP Pulse Ox 98.1 F 74 20 135/70 98 07/23/17 21:21 07/23/17 21:21 07/23/17 21:21 07/23/17 22:19 07/23/17 21:21 - Medications Medications: Current Medications Acetaminophen/Codeine Phosphate (Tylenol/Codeine 300 Mg/30 Mg) 1 ea PO Q6 PRN PRN Reason: Pain, severe (8-10) Last Admin: 07/22/17 19:37 Dose: 1 ea Albuterol Sulfate (Albuterol 0.083% Inhal [place]ie (2.5 Mg/3 Ml) Ud) 2.5 mg INH ONCE PRN PRN Reason: Wheezing Budesonide (Pulmicort Respules) 0.5 mg INH RQ12 [facility] Last Admin: 07/23/17 21:52 Dose: Not Given Carvedilol (Coreg) 12.5 mg PO BID [facility] Last Admin: 07/23/17 20:35 Dose: 12.5 mg Clonidine HCl (Catapres) 0.1 mg PO Q8 [facility] Last Admin: 07/23/17 22:20 Dose: 0.1 mg Epoetin Ant (Procrit) 10,000 unit IV TTS [facility] Last Admin: 07/22/17 16:11 Dose: 10,000 unit Furosemide (Lasix) 40 mg IVP Q12 [facility] Last Admin: 07/23/17 22:19 Dose: 40 mg Guaifenesin (Mucinex La) 600 mg PO BID [facility] Last Admin: 07/23/17 20:36 Dose: 600 mg Hydralazine HCl (Apresoline) 100 mg PO Q8 [facility] Last Admin: 07/23/17 22:20 Dose: 100 mg Doxycycline Hyclate 100 mg/ (Sodium Chloride) 100 mls @ 100 mls/hr IVPB Q12H [facility] Last Admin: 07/23/17 20:36 Dose: 100 mls/hr Ferric Sodium Gluconate Complex 125 mg/ Sodium Chloride 110 mls @ 110 mls/hr IVPB DAILY [facility] Stop: 07/25/17 10:01 Last Admin: 07/23/17 09:35 Dose: 110 mls/hr Ipratropium [place] (Atrovent) 0.5 mg IH RQ6 [facility] Last Admin: 07/23/17 21:52 Dose: Not Given Montelukast Sodium (Singulair) 10 mg PO DAILY [facility] Last Admin: 07/23/17 09:20 Dose: 10 mg Pantoprazole Sodium (Protonix Ec Tab) 40 mg PO DAILY [facility] Last Admin: 07/23/17 09:35 Dose: 40 mg Rosuvastatin Calcium (Crestor) 10 mg PO HS [facility] Last Admin: 07/23/17 22:20 Dose: 10 mg Sevelamer Carbonate (Renvela) 800 mg PO TIDCC [facility] Last Admin: 07/23/17 20:36 Dose: 800 mg Vitamin B Complex/Vit C/Folic Acid (Nephro-Berry) 1 tab PO 0800 [facility] Last Admin: 07/23/17 08:12 Dose: 1 tab - Labs Labs: 07/22/17 07:50 07/22/17 07:50 PT 11.7 SECONDS (9.7-12.2) 07/16/17 13:57 INR 1.0 07/16/17 13:57 APTT 30 SECONDS (21-34) 07/16/17 13:57
[2017-07-24] MEDS: Ipratropium 0.02% Inhal Soln (0.5 mg/2.5 ml) UD IH SCH ×4 (03:16→20:23)
[2017-07-24 08:22] LABS: MEAN CORPUSCULAR HEMOGLOBIN 28.8 pg (27.0-31.0); MEAN CORPUSCULAR HGB CONC 33.1 g/dL (33.0-37.0); MEAN PLATELET VOLUME 9.1 fL (7.2-11.7); RBC 3.46 Mil/uL (4.40-5.90); WHITE BLOOD COUNT 12.7 K/uL (4.8-10.8)
[2017-07-24 08:44] LABS: ALB/GLOB RATIO 1.1 (1.0-2.1); ALBUMIN 3.7 g/dL (3.5-5.0); CALCIUM 8.7 mg/dl (8.6-10.4)
[2017-07-24] MEDS: Budesonide 0.5 mg/2 ml Inhal Susp UD INH SCH ×2 (08:54→20:23)
[2017-07-24] MEDS: Multivitamin Vitamin B Complex (Nephro-Vite) Tab PO SCH (09:00)
[2017-07-24] MEDS ORDERED: Ferric Sodium Gluconat Complex 62.5 mg/5 ml Vial ONE (10:41)
[2017-07-24] MEDS: Epoetin Alfa 10,000 unit/ml Dialysis IV SCH (10:42)
[2017-07-24] MEDS: guaiFENesin 600 mg ER Tab PO SCH ×2 (11:00→17:29)
[2017-07-24] MEDS: Pantoprazole 40 mg EC Tab PO SCH (11:00)
[2017-07-24] MEDS: Ferric Sodium Gluconat Complex 125 MG in Sodium Chloride 0.9% 100 ML IVPB SCH (11:29)
--- NOTE | 2017-07-24 13:48 | CP.PCM.PN ---
Subjective - Date & Time of Evaluation Date of Evaluation: 07/24/17 Time of Evaluation: 13:45 - Subjective Subjective: Surgery Pt s&e. NAEON. Pt getting HD w permacath. Pt feels better. Had CT abd yesterday. Show possible L renal cell CA Objective - Vital Signs/Intake and Output Vital Signs (last 24 hours): Temp Pulse Resp BP Pulse Ox 97.7 F 89 18 118/70 96 07/24/17 12:25 07/24/17 13:26 07/24/17 12:25 07/24/17 13:34 07/24/17 12:25 Intake and Output: 07/24/17 07/24/17 06:59 18:59 Intake Total 400 Balance 400 - Medications Medications: Current Medications Acetaminophen/Codeine Phosphate (Tylenol/Codeine 300 Mg/30 Mg) 1 ea PO Q6 PRN PRN Reason: Pain, severe (8-10) Last Admin: 07/22/17 19:37 Dose: 1 ea Albuterol Sulfate (Albuterol 0.083% Inhal Madie (2.5 Mg/3 Ml) Ud) 2.5 mg INH ONCE PRN PRN Reason: Wheezing Budesonide (Pulmicort Respules) 0.5 mg INH RQ12 [facility] Last Admin: 07/24/17 08:54 Dose: Not Given Carvedilol (Coreg) 12.5 mg PO BID [facility] Last Admin: 07/24/17 11:00 Dose: Not Given Clonidine HCl (Catapres) 0.1 mg PO Q8 [facility] Last Admin: 07/24/17 13:26 Dose: Not Given Epoetin Ant (Procrit) 10,000 unit IV TTS [facility] Last Admin: 07/24/17 10:42 Dose: 10,000 unit Furosemide (Lasix) 40 mg IVP Q12 [facility] Last Admin: 07/24/17 13:34 Dose: 40 mg Guaifenesin (Mucinex La) 600 mg PO BID [facility] Last Admin: 07/24/17 11:00 Dose: Not Given Hydralazine HCl (Apresoline) 100 mg PO Q8 [facility] Last Admin: 07/24/17 13:26 Dose: Not Given Ferric Sodium Gluconate Complex 125 mg/ Sodium Chloride 110 mls @ 110 mls/hr IVPB DAILY [facility] Stop: 07/25/17 10:01 Last Admin: 07/24/17 11:29 Dose: 110 mls/hr Ipratropium [place] (Atrovent) 0.5 mg IH RQ6 [facility] Last Admin: 07/24/17 08:54 Dose: Not Given Montelukast Sodium (Singulair) 10 mg PO DAILY [facility] Last Admin: 07/24/17 11:00 Dose: Not Given Pantoprazole Sodium (Protonix Ec Tab) 40 mg PO DAILY [facility] Last Admin: 07/24/17 11:00 Dose: Not Given Rosuvastatin Calcium (Crestor) 10 mg PO HS [facility] Last Admin: 07/23/17 22:20 Dose: 10 mg Sevelamer Carbonate (Renvela) 800 mg PO TIDCC [facility] Last Admin: 07/24/17 12:00 Dose: Not Given Vitamin B Complex/Vit C/Folic Acid (Nephro-Berry) 1 tab PO 0800 [facility] Last Admin: 07/24/17 09:00 Dose: Not Given - Labs Labs: 07/24/17 08:06 07/24/17 08:06 PT 11.7 SECONDS (9.7-12.2) 07/16/17 13:57 INR 1.0 07/16/17 13:57 APTT 30 SECONDS (21-34) 07/16/17 13:57 - Constitutional Appears: No Acute Distress - Head Exam Head Exam: ATRAUMATIC, NORMAL INSPECTION, NORMOCEPHALIC - Eye Exam Eye Exam: EOMI, Normal appearance, PERRL Pupil Exam: NORMAL ACCOMODATION, PERRL - ENT Exam ENT Exam: Mucous Membranes Moist, Normal Exam - Neck Exam Neck Exam: Full ROM, Normal Inspection. absent: Lymphadenopathy - Respiratory Exam Respiratory Exam: Clear to Ausculation Bilateral, NORMAL BREATHING PATTERN - Cardiovascular Exam Cardiovascular Exam: REGULAR RHYTHM, +S1, +S2. absent: Murmur - GI/Abdominal Exam GI & Abdominal Exam: Soft, Normal Bowel Sounds. absent: Tenderness - Extremities Exam Extremities Exam: Full ROM, Normal Capillary Refill, Normal Inspection. absent : Joint Swelling, Pedal Edema - Back Exam Back Exam: NORMAL INSPECTION - Neurological Exam Neurological Exam: Alert, Awake, CN II-XII Intact, Normal Gait, Oriented x3 - Psychiatric Exam Psychiatric exam: Normal Affect, Normal Mood - Skin Skin Exam: Dry, Intact, Normal Color, Warm Assessment and Plan - Assessment and Plan (Free Text) Assessment: 56 M with ESRD requiring dialysis s/p permacath insertion POD#2 -Plan for AVF creation Wednesday in [place] -NPO past [place] Wednesday evening -Analgesics PRN -Management as per primary -Discussed with Dr. Shaw
--- NOTE | 2017-07-24 16:07 | CP.PCM.PN ---
Subjective - Date & Time of Evaluation Date of Evaluation: 07/24/17 Time of Evaluation: 16:06 - Subjective Subjective: pt is seen and examined, follow up consult is dictated # social service for out pt hd referral to [facility] dialysis [place] Objective - Vital Signs/Intake and Output Vital Signs (last 24 hours): Temp Pulse Resp BP Pulse Ox 97.7 F 89 18 118/70 96 07/24/17 12:25 07/24/17 13:26 07/24/17 12:25 07/24/17 13:34 07/24/17 12:25 Intake and Output: 07/24/17 07/24/17 06:59 18:59 Intake Total 400 Balance 400 - Medications Medications: Current Medications Acetaminophen/Codeine Phosphate (Tylenol/Codeine 300 Mg/30 Mg) 1 ea PO Q6 PRN PRN Reason: Pain, severe (8-10) Last Admin: 07/22/17 19:37 Dose: 1 ea Albuterol Sulfate (Albuterol 0.083% Inhal Madie (2.5 Mg/3 Ml) Ud) 2.5 mg INH ONCE PRN PRN Reason: Wheezing Budesonide (Pulmicort Respules) 0.5 mg INH RQ12 [facility] Last Admin: 07/24/17 08:54 Dose: Not Given Carvedilol (Coreg) 12.5 mg PO BID [facility] Last Admin: 07/24/17 11:00 Dose: Not Given Clonidine HCl (Catapres) 0.1 mg PO BID [facility] Epoetin Ant (Procrit) 10,000 unit IV TTS [facility] Last Admin: 07/24/17 10:42 Dose: 10,000 unit Furosemide (Lasix) 40 mg IVP Q12 [facility] Last Admin: 07/24/17 13:34 Dose: 40 mg Guaifenesin (Mucinex La) 600 mg PO BID [facility] Last Admin: 07/24/17 11:00 Dose: Not Given Hydralazine HCl (Apresoline) 100 mg PO Q8 [facility] Last Admin: 07/24/17 13:26 Dose: Not Given Ferric Sodium Gluconate Complex 125 mg/ Sodium Chloride 110 mls @ 110 mls/hr IVPB DAILY [facility] Stop: 07/25/17 10:01 Last Admin: 07/24/17 11:29 Dose: 110 mls/hr Ipratropium [place] (Atrovent) 0.5 mg IH RQ6 [facility] Last Admin: 07/24/17 13:57 Dose: Not Given Montelukast Sodium (Singulair) 10 mg PO DAILY [facility] Last Admin: 07/24/17 11:00 Dose: Not Given Pantoprazole Sodium (Protonix Ec Tab) 40 mg PO DAILY [facility] Last Admin: 07/24/17 11:00 Dose: Not Given Rosuvastatin Calcium (Crestor) 10 mg PO HS [facility] Last Admin: 07/23/17 22:20 Dose: 10 mg Sevelamer Carbonate (Renvela) 800 mg PO TIDCC [facility] Last Admin: 07/24/17 12:00 Dose: Not Given Vitamin B Complex/Vit C/Folic Acid (Nephro-Berry) 1 tab PO 0800 [facility] Last Admin: 07/24/17 09:00 Dose: Not Given - Labs Labs: 07/24/17 08:06 07/24/17 08:06 PT 11.7 SECONDS (9.7-12.2) 07/16/17 13:57 INR 1.0 07/16/17 13:57 APTT 30 SECONDS (21-34) 07/16/17 13:57
--- NOTE | 2017-07-24 20:10 | CP.PCM.PN ---
Subjective - Date & Time of Evaluation Date of Evaluation: 07/24/17 Time of Evaluation: 16:45 - Subjective Subjective: patient seen and examined Breathing much improved Status post dialysis x3 Denies shortness of breath, denies chest pain Continue hemodialysis Sleep study as outpatient Objective - Vital Signs/Intake and Output Vital Signs (last 24 hours): Temp Pulse Resp BP Pulse Ox 97.9 F 87 20 138/81 96 07/24/17 15:00 07/24/17 16:03 07/24/17 15:00 07/24/17 17:30 07/24/17 15:00 - Medications Medications: Current Medications Acetaminophen/Codeine Phosphate (Tylenol/Codeine 300 Mg/30 Mg) 1 ea PO Q6 PRN PRN Reason: Pain, severe (8-10) Last Admin: 07/22/17 19:37 Dose: 1 ea Acetaminophen/Codeine Phosphate (Tylenol/Codeine 300 Mg/30 Mg) 1 ea PO Q6 PRN PRN Reason: Pain, severe (8-10) Albuterol Sulfate (Albuterol 0.083% Inhal Madie (2.5 Mg/3 Ml) Ud) 2.5 mg INH ONCE PRN PRN Reason: Wheezing Budesonide (Pulmicort Respules) 0.5 mg INH RQ12 [facility] Last Admin: 07/24/17 08:54 Dose: Not Given Carvedilol (Coreg) 12.5 mg PO BID [facility] Last Admin: 07/24/17 17:30 Dose: 12.5 mg Clonidine HCl (Catapres) 0.1 mg PO BID [facility] Last Admin: 07/24/17 17:30 Dose: 0.1 mg Epoetin Ant (Procrit) 10,000 unit IV TTS [facility] Last Admin: 07/24/17 10:42 Dose: 10,000 unit Furosemide (Lasix) 40 mg IVP Q12 [facility] Last Admin: 07/24/17 13:34 Dose: 40 mg Guaifenesin (Mucinex La) 600 mg PO BID [facility] Last Admin: 07/24/17 17:29 Dose: 600 mg Hydralazine HCl (Apresoline) 100 mg PO Q8 [facility] Last Admin: 07/24/17 13:26 Dose: Not Given Ferric Sodium Gluconate Complex 125 mg/ Sodium Chloride 110 mls @ 110 mls/hr IVPB DAILY [facility] Stop: 07/25/17 10:01 Last Admin: 07/24/17 11:29 Dose: 110 mls/hr Ipratropium [place] (Atrovent) 0.5 mg IH RQ6 [facility] Last Admin: 07/24/17 13:57 Dose: Not Given Montelukast Sodium (Singulair) 10 mg PO DAILY [facility] Last Admin: 07/24/17 11:00 Dose: Not Given Pantoprazole Sodium (Protonix Ec Tab) 40 mg PO DAILY [facility] Last Admin: 07/24/17 11:00 Dose: Not Given Rosuvastatin Calcium (Crestor) 10 mg PO HS [facility] Last Admin: 07/23/17 22:20 Dose: 10 mg Sevelamer Carbonate (Renvela) 800 mg PO TIDCC [facility] Last Admin: 07/24/17 17:29 Dose: 800 mg Vitamin B Complex/Vit C/Folic Acid (Nephro-Berry) 1 tab PO 0800 [facility] Last Admin: 07/24/17 09:00 Dose: Not Given - Labs Labs: 07/24/17 08:06 07/24/17 08:06 PT 11.7 SECONDS (9.7-12.2) 07/16/17 13:57 INR 1.0 07/16/17 13:57 APTT 30 SECONDS (21-34) 07/16/17 13:57
--- NOTE | 2017-07-24 20:44 | PN ---
DATE: 07/24/2017 FOLLOWUP RENAL CONSULTATION LOCATION: The patient is located in room 671, bed A. REQUESTED BY: Tobin Witt MD. REASON FOR FOLLOWUP: End-stage renal disease, continuation of hemodialysis, and left renal mass. SUBJECTIVE: Mr. Mehta is a 56-year-old obese male with a past medical history significant for longstanding hypertension, diabetes, hyperlipidemia, and nephrotic-range proteinuria with left renal mass of long time, more than 6 months ago, who was admitted with dyspnea on exertion, shortness of breath, and not improving with Lasix and vigorous diuresis and the patient agreed for hemodialysis and was started on hemodialysis after Perm-A-Cath placement on . The patient was given hemodialysis on , Wednesday, and Wednesday. Today, patient is feeling much better and able to lie down flat. No chest pain. No palpitation. No fever. No cough. No nausea, vomiting, diarrhea. PHYSICAL EXAMINATION: GENERAL: Mr. Mehta is a 56-year-old obese male, moderately built, moderately nourished, not in any acute distress. VITAL SIGNS: As follows: Blood pressure 128/80, pulse 77, respirations 20, temperature 97.6, saturation 96%. Height 5 feet 6 inches. Weight is 214 pounds. HEENT: Pupils are normal and reactive to light and accommodation. Conjunctivae pink. Sclerae anicteric. Tongue is moist. Trachea is midline. LUNGS: Symmetric on both sides. Bilateral breath sounds present. Clear on auscultation. CARDIOVASCULAR SYSTEM: [place] at the fifth intercostal space, midclavicular line. S1 and S2 audible. No murmur or gallop. ABDOMEN: Normal in appearance, soft, tympanic. No guarding. No rigidity. No hepatosplenomegaly. CENTRAL NERVOUS SYSTEM: Patient is alert, awake, oriented x3. Nonfocal neuro examination. Cranial nerves II through XII grossly intact. Sensory and motor system is within normal limits. EXTREMITIES: No cyanosis. No clubbing. Trace edema in both lower extremities. LABORATORY DATA: His laboratory data includes as follows: As of 07/24/2017, WBC 12.7, hemoglobin is 10, hematocrit is 30.1, and platelets 205. Sodium 133, potassium 4.1, chloride 94, CO2 of 27, BUN 52, creatinine 4.6, glucose of 137, calcium 8.7. Total bili 0.5, AST 25, ALT 30, alkaline phosphatase 62, total protein 7.1, albumin is 3.7. Other reports: CT of the abdomen and pelvis as of 07/23/2017, impression 4.3 cm length upper pole solid-appearing mass, worrisome for renal cell carcinoma, , may reflect small airway vessels. Diffuse patchy opacities between the right lung base, may reflect infiltrate. MEDICATIONS: Include as follows; albuterol inhaler 2.5 mg inhaler p.r.n., hydralazine 100 mg p.o. q. 8 hours, Atrovent 0.5 mg inhaler q. 6 hours, clonidine 0.1 mg b.i.d., Coreg 12.5 mg p.o. b.i.d., Crestor 10 mg at bedtime, ferrous gluconate 125 mg IV piggyback daily, Lasix 40 mg IV q. 12 hours, Mucinex 600 mg p.o. b.i.d., Nephro-Berry one tablet daily, Procrit 10,000 three times a week, Protonix 40 mg p.o. daily, Pulmicort 0.5 mg inhaler q. 12 hours, Renvela 800 mg p.o. t.i.d., Singulair 10 mg p.o. daily, and Tylenol with Codeine one tablet p.o. q. 6 p.r.n. ASSESSMENT AND PLAN: In summary, Mr. Mehta is a 56-year-old obese male with a history of longstanding hypertension, diabetes, hyperlipidemia, nephrotic-range proteinuria, asthma, who was admitted with a poor left ventricular function, ejection fraction about 40% to 45% and diffuse hypokinesis of the left ventricle and persistent shortness of breath diuretics, and worsening renal function, agreed for hemodialysis and started on hemodialysis after Perm-A-Cath placement. 1. End-stage renal disease. Most likely secondary to diabetic nephropathy. Cannot rule out underlying chronic glomerulonephritis such as focal segmental glomerulosclerosis. 2. Anemia secondary to renal failure and also iron-deficiency anemia. 3. Left renal mass. Doubt renal cell carcinoma. 4. Diabetes. 5. Hypertension. 6. Exacerbation of asthma. Continue his antihypertensive medications, hydralazine, clonidine, Coreg, and continue his Procrit and Nephro-Berry and continue to monitor hemoglobin and hematocrit and follow up with Urology for evaluation of the left renal mass. May need partial total nephrectomy. Follow up with Urology for further evaluation of that. Patient is scheduled for possible arteriovenous fistula on Wednesday. I discussed with the patient regarding outpatient hemodialysis options in [facility] and [facility]. Patent agreed to go to the [facility] outpatient hemodialysis unit. Thank you for allowing me to participate in your patient's care. Talya Vogel MD
--- NOTE | 2017-07-24 23:48 | CP.PCM.PN ---
Subjective - Date & Time of Evaluation Date of Evaluation: 07/24/17 Time of Evaluation: 18:50 - Subjective Subjective: Pt seen and evaluated, on HD, is for urology consult due to mass in kidney, he is feeling better, not coughing Objective - Vital Signs/Intake and Output Vital Signs (last 24 hours): Temp Pulse Resp BP Pulse Ox 98.5 F 82 20 132/69 96 07/24/17 23:05 07/24/17 23:05 07/24/17 23:05 07/24/17 23:05 07/24/17 23:05 - Medications Medications: Current Medications Acetaminophen/Codeine Phosphate (Tylenol/Codeine 300 Mg/30 Mg) 1 ea PO Q6 PRN PRN Reason: Pain, severe (8-10) Last Admin: 07/22/17 19:37 Dose: 1 ea Acetaminophen/Codeine Phosphate (Tylenol/Codeine 300 Mg/30 Mg) 1 ea PO Q6 PRN PRN Reason: Pain, severe (8-10) Albuterol Sulfate (Albuterol 0.083% Inhal Madie (2.5 Mg/3 Ml) Ud) 2.5 mg INH ONCE PRN PRN Reason: Wheezing Budesonide (Pulmicort Respules) 0.5 mg INH RQ12 [facility] Last Admin: 07/24/17 20:23 Dose: Not Given Carvedilol (Coreg) 12.5 mg PO BID [facility] Last Admin: 07/24/17 17:30 Dose: 12.5 mg Clonidine HCl (Catapres) 0.1 mg PO BID [facility] Last Admin: 07/24/17 17:30 Dose: 0.1 mg Epoetin Ant (Procrit) 10,000 unit IV TTS [facility] Last Admin: 07/24/17 10:42 Dose: 10,000 unit Furosemide (Lasix) 40 mg IVP Q12 [facility] Last Admin: 07/24/17 21:18 Dose: 40 mg Guaifenesin (Mucinex La) 600 mg PO BID [facility] Last Admin: 07/24/17 17:29 Dose: 600 mg Hydralazine HCl (Apresoline) 100 mg PO Q8 [facility] Last Admin: 07/24/17 21:17 Dose: 100 mg Ferric Sodium Gluconate Complex 125 mg/ Sodium Chloride 110 mls @ 110 mls/hr IVPB DAILY [facility] Stop: 07/25/17 10:01 Last Admin: 07/24/17 11:29 Dose: 110 mls/hr Ipratropium [place] (Atrovent) 0.5 mg IH RQ6 [facility] Last Admin: 07/24/17 20:23 Dose: Not Given Montelukast Sodium (Singulair) 10 mg PO DAILY [facility] Last Admin: 07/24/17 11:00 Dose: Not Given Pantoprazole Sodium (Protonix Ec Tab) 40 mg PO DAILY [facility] Last Admin: 07/24/17 11:00 Dose: Not Given Rosuvastatin Calcium (Crestor) 10 mg PO HS [facility] Last Admin: 07/24/17 21:17 Dose: 10 mg Sevelamer Carbonate (Renvela) 800 mg PO TIDCC [facility] Last Admin: 07/24/17 17:29 Dose: 800 mg Vitamin B Complex/Vit C/Folic Acid (Nephro-Berry) 1 tab PO 0800 [facility] Last Admin: 07/24/17 09:00 Dose: Not Given - Labs Labs: 07/24/17 08:06 07/24/17 08:06 PT 11.7 SECONDS (9.7-12.2) 07/16/17 13:57 INR 1.0 07/16/17 13:57 APTT 30 SECONDS (21-34) 07/16/17 13:57 - Constitutional Appears: No Acute Distress - Head Exam Head Exam: ATRAUMATIC, NORMAL INSPECTION, NORMOCEPHALIC - Eye Exam Eye Exam: EOMI, Normal appearance, PERRL Pupil Exam: NORMAL ACCOMODATION, PERRL - ENT Exam ENT Exam: Mucous Membranes Moist, Normal Exam - Respiratory Exam Respiratory Exam: Clear to Ausculation Bilateral, NORMAL BREATHING PATTERN - Cardiovascular Exam Cardiovascular Exam: REGULAR RHYTHM, +S1, +S2. absent: Murmur - GI/Abdominal Exam GI & Abdominal Exam: Soft, Normal Bowel Sounds. absent: Tenderness Assessment and Plan (1) Chronic congestive heart failure Status: Acute (2) Dyspnea Status: Acute (3) Hypertension Status: Acute (4) Renal failure Status: Acute (5) Elevated troponin Status: Acute (6) Anemia Status: Acute
[2017-07-25] MEDS: Ipratropium 0.02% Inhal Soln (0.5 mg/2.5 ml) UD IH SCH ×3 (01:12→19:00)
--- NOTE | 2017-07-25 08:20 | CP.PCM.PN ---
Subjective - Date & Time of Evaluation Date of Evaluation: 07/25/17 Time of Evaluation: 08:18 - Subjective Subjective: Surgery Pt s&e. Getting HD. ZAKIYA. Objective - Vital Signs/Intake and Output Vital Signs (last 24 hours): Temp Pulse Resp BP Pulse Ox 98.1 F 85 20 133/79 95 07/25/17 04:10 07/25/17 04:10 07/25/17 04:10 07/25/17 04:10 07/25/17 04:10 - Medications Medications: Current Medications Acetaminophen/Codeine Phosphate (Tylenol/Codeine 300 Mg/30 Mg) 1 ea PO Q6 PRN PRN Reason: Pain, severe (8-10) Last Admin: 07/22/17 19:37 Dose: 1 ea Acetaminophen/Codeine Phosphate (Tylenol/Codeine 300 Mg/30 Mg) 1 ea PO Q6 PRN PRN Reason: Pain, severe (8-10) Albuterol Sulfate (Albuterol 0.083% Inhal Madie (2.5 Mg/3 Ml) Ud) 2.5 mg INH ONCE PRN PRN Reason: Wheezing Budesonide (Pulmicort Respules) 0.5 mg INH RQ12 [facility] Last Admin: 07/24/17 20:23 Dose: Not Given Carvedilol (Coreg) 12.5 mg PO BID [facility] Last Admin: 07/24/17 17:30 Dose: 12.5 mg Clonidine HCl (Catapres) 0.1 mg PO BID [facility] Last Admin: 07/24/17 17:30 Dose: 0.1 mg Epoetin Ant (Procrit) 10,000 unit IV TTS [facility] Last Admin: 07/24/17 10:42 Dose: 10,000 unit Furosemide (Lasix) 40 mg IVP Q12 [facility] Last Admin: 07/24/17 21:18 Dose: 40 mg Guaifenesin (Mucinex La) 600 mg PO BID [facility] Last Admin: 07/24/17 17:29 Dose: 600 mg Hydralazine HCl (Apresoline) 100 mg PO Q8 [facility] Last Admin: 07/25/17 06:18 Dose: 100 mg Ferric Sodium Gluconate Complex 125 mg/ Sodium Chloride 110 mls @ 110 mls/hr IVPB DAILY [facility] Stop: 07/25/17 10:01 Last Admin: 01/20/18 11:29 Dose: 110 mls/hr Ipratropium [place] (Atrovent) 0.5 mg IH RQ6 [facility] Last Admin: 07/25/17 01:12 Dose: Not Given Montelukast Sodium (Singulair) 10 mg PO DAILY [facility] Last Admin: 07/24/17 11:00 Dose: Not Given Pantoprazole Sodium (Protonix Ec Tab) 40 mg PO DAILY [facility] Last Admin: 07/24/17 11:00 Dose: Not Given Rosuvastatin Calcium (Crestor) 10 mg PO HS [facility] Last Admin: 07/24/17 21:17 Dose: 10 mg Sevelamer Carbonate (Renvela) 800 mg PO TIDCC [facility] Last Admin: 07/24/17 17:29 Dose: 800 mg Vitamin B Complex/Vit C/Folic Acid (Nephro-Berry) 1 tab PO 0800 [facility] Last Admin: 07/24/17 09:00 Dose: Not Given - Labs Labs: 07/24/17 08:06 07/24/17 08:06 PT 11.7 SECONDS (9.7-12.2) 07/16/17 13:57 INR 1.0 07/16/17 13:57 APTT 30 SECONDS (21-34) 07/16/17 13:57 - Constitutional Appears: No Acute Distress - Head Exam Head Exam: ATRAUMATIC, NORMAL INSPECTION, NORMOCEPHALIC - Eye Exam Eye Exam: EOMI, Normal appearance, PERRL Pupil Exam: NORMAL ACCOMODATION, PERRL - ENT Exam ENT Exam: Mucous Membranes Moist, Normal Exam - Neck Exam Neck Exam: Full ROM, Normal Inspection. absent: Lymphadenopathy - Respiratory Exam Respiratory Exam: Clear to Ausculation Bilateral, NORMAL BREATHING PATTERN - Cardiovascular Exam Cardiovascular Exam: REGULAR RHYTHM, +S1, +S2. absent: Murmur - GI/Abdominal Exam GI & Abdominal Exam: Soft, Normal Bowel Sounds. absent: Distended, Tenderness - Extremities Exam Extremities Exam: Full ROM, Normal Capillary Refill, Normal Inspection. absent : Joint Swelling, Pedal Edema - Back Exam Back Exam: NORMAL INSPECTION - Neurological Exam Neurological Exam: Alert, Awake, CN II-XII Intact, Normal Gait, Oriented x3 - Psychiatric Exam Psychiatric exam: Normal Affect, Normal Mood - Skin Skin Exam: Dry, Intact, Normal Color, Warm Additional comments: Permacath in place. Assessment and Plan - Assessment and Plan (Free Text) Assessment: 56 M with ESRD requiring dialysis s/p permacath insertion POD#3 -Plan for AVF creation Wednesday in [place] -NPO past MN Wednesday evening -Analgesics PRN -Management as per primary -Discussed with Dr. Shaw
[2017-07-25] MEDS: Budesonide 0.5 mg/2 ml Inhal Susp UD INH SCH ×2 (08:24→19:00)
[2017-07-25] MEDS: guaiFENesin 600 mg ER Tab PO SCH ×2 (09:31→17:06)
[2017-07-25] MEDS: Pantoprazole 40 mg EC Tab PO SCH (09:31)
[2017-07-25] MEDS: Multivitamin Vitamin B Complex (Nephro-Vite) Tab PO SCH (09:31)
[2017-07-25] MEDS: Ferric Sodium Gluconat Complex 125 MG in Sodium Chloride 0.9% 100 ML IVPB SCH (10:32)
--- NOTE | 2017-07-25 18:18 | CP.PCM.PN ---
Subjective - Date & Time of Evaluation Date of Evaluation: 07/25/17 Time of Evaluation: 18:17 - Subjective Subjective: pt is seen and examined, follow up consult is dictated #[id number] follow up with urology f/u with vascular for avf Objective - Vital Signs/Intake and Output Vital Signs (last 24 hours): Temp Pulse Resp BP Pulse Ox 98.1 F 66 96 H 118/78 97 07/25/17 08:34 07/25/17 16:25 07/25/17 08:34 07/25/17 17:06 07/25/17 08:34 - Medications Medications: Current Medications Acetaminophen/Codeine Phosphate (Tylenol/Codeine 300 Mg/30 Mg) 1 ea PO Q6 PRN PRN Reason: Pain, severe (8-10) Albuterol Sulfate (Albuterol 0.083% Inhal Madie (2.5 Mg/3 Ml) Ud) 2.5 mg INH ONCE PRN PRN Reason: Wheezing Budesonide (Pulmicort Respules) 0.5 mg INH RQ12 [facility] Last Admin: 07/25/17 08:24 Dose: Not Given Carvedilol (Coreg) 12.5 mg PO BID [facility] Last Admin: 07/25/17 17:06 Dose: 12.5 mg Clonidine HCl (Catapres) 0.1 mg PO BID [facility] Last Admin: 07/25/17 17:06 Dose: 0.1 mg Epoetin Ant (Procrit) 10,000 unit IV TTS [facility] Last Admin: 07/24/17 10:42 Dose: 10,000 unit Furosemide (Lasix) 40 mg IVP Q12 [facility] Last Admin: 07/25/17 09:26 Dose: 40 mg Guaifenesin (Mucinex La) 600 mg PO BID [facility] Last Admin: 07/25/17 17:06 Dose: 600 mg Hydralazine HCl (Apresoline) 100 mg PO Q8 [facility] Last Admin: 07/25/17 13:26 Dose: 100 mg Ipratropium [place] (Atrovent) 0.5 mg IH RQ6 [facility] Last Admin: 07/25/17 08:24 Dose: Not Given Montelukast Sodium (Singulair) 10 mg PO DAILY [facility] Last Admin: 07/25/17 09:31 Dose: 10 mg Pantoprazole Sodium (Protonix Ec Tab) 40 mg PO DAILY [facility] Last Admin: 07/25/17 09:31 Dose: 40 mg Rosuvastatin Calcium (Crestor) 10 mg PO HS [facility] Last Admin: 07/24/17 21:17 Dose: 10 mg Sevelamer Carbonate (Renvela) 800 mg PO TIDCC [facility] Last Admin: 07/25/17 17:06 Dose: 800 mg Vitamin B Complex/Vit C/Folic Acid (Nephro-Berry) 1 tab PO 0800 [facility] Last Admin: 07/25/17 09:31 Dose: 1 tab - Labs Labs: 07/24/17 08:06 07/24/17 08:06 PT 11.7 SECONDS (9.7-12.2) 07/16/17 13:57 INR 1.0 07/16/17 13:57 APTT 30 SECONDS (21-34) 07/16/17 13:57
--- NOTE | 2017-07-25 21:31 | PN ---
DATE: LOCATION: Room 671, bed A. REQUESTING PHYSICIAN: Tobin Witt MD. REASON FOR FOLLOWUP: End-stage renal disease, for continuation of the hemodialysis. HISTORY OF PRESENT ILLNESS: Mr. Mehta is a 56-year-old obese male with a history of longstanding hypertension, diabetes, asthma, nephrotic range proteinuria, renal failure with left renal mass. was admitted with dyspnea on exertion, shortness of breath and PND, orthopnea and the patient agreed for initiation of the hemodialysis, started on hemodialysis yesterday after PermCath placement. The patient is feeling much better today, not in distress. No chest pain, no palpitation. Discussed with the patient this morning the need for the CT scan with contrast for evaluation of the left kidney mass. The patient agreed for the CT scan with contrast and also for the dialysis after the contrast today. PHYSICAL EXAMINATION: VITAL SIGNS: As follows, blood pressure this morning 147/73, pulse 74, respiration 20, temperature 98.1. Height 5 feet 6 inches and weight is 214 pounds. GENERAL: Mr. Mehta is a 56-year-old male, moderately built, moderately nourished, not in distress. HEENT: Pupils normal and reactive to light and accommodation. Conjunctivae pink. Sclerae anicteric. Tongue is moist and trachea is midline. LUNGS: Symmetric on both sides. Bilateral breath sounds present. Occasional rhonchi present, right more than the left. CARDIOVASCULAR: [place] at the fifth intercostal space in midclavicular area. S1, S2 audible. No murmur or gallop. ABDOMEN: Normal in appearance. Soft, tympanic. No guarding. No hepatosplenomegaly. PIN WORKER: The patient is alert, awake, oriented x3. Nonfocal neuro examination. Cranial nerves II to XII grossly intact. Sensory and motor system is within normal limits. EXTREMITIES: No cyanosis, no clubbing. The patient has 1+ edema in both lower extremities. CURRENT MEDICATIONS: Include as follows, albuterol inhaler, hydralazine 100 mg p.o. q.8 hours, Atrovent 0.5 mg inhaler q.6 hours, clonidine 0.1 mg p.o. q.8 hours, Coreg 12.5 mg p.o. b.i.d., Crestor 10 mg at bedtime, doxycycline 100 mg q. 12, ferrous gluconate 125 mg daily, Lasix 40 mg IV q. 12, Mucinex 600 mg p.o. b.i.d., Nephro-Berry 1 tablet daily, Epogen 10,000 three times a week, Protonix 40 mg p.o. daily, Renvela 800 mg p.o. t.i.d., Singulair 10 mg p.o. daily, Tylenol p.o. q.6 hours. Accu-Chek 129 and 188. Other reports, CT scan of the abdomen and pelvis as of 07/23/2017, impression, a 4.3 cm left upper pole solid appearing mass, worrisome for renal cell carcinoma, mosaic perfusion may reflect a small airways and vessel disease, patchy opacities within the right lung base may reflect infiltrates. In summary, Mr. Mehta is a 56-year-old middle-aged obese male with a history of hypertension, diabetes, asthma, nephrotic range proteinuria and 4.3 cm left renal solid mass. 1. End-stage renal disease. Continue hemodialysis 3 times a week. The patient underwent hemodialysis today after CT scan with contrast. 2. Hypertension. 3. Anemia secondary to renal failure and iron deficiency. 4. Diabetes. 5. Left renal mass, rule out renal cell carcinoma. The patient underwent hemodialysis this evening and had ultrafiltration about 2.4 liters. We will check CBC, CMP in a.m. and we will give another dialysis tomorrow, and after that three times a week. We will follow up with social service for outpatient hemodialysis unit placement in [facility] or [facility] in [place] as per the patient's request. We will follow with you. Thank you for allowing me to participate in your patient's care. Talya Vogel MD
--- NOTE | 2017-07-25 21:32 | PN ---
DATE: LOCATION: Room 671, bed A. SUBJECTIVE: This is a 56-year-old male, seen and examined in rounds early today without significant clinical changes or active bleeding but intermittent period of nausea and dyspepsia with muscle pain. Most recent radiology study results done yesterday including CAT scan of abdomen and pelvis as I requested before, indicative of left upper bowel solid-appearing mass with questioning renal cell carcinoma with patchy opacity within the right lung base. Most recent lab results showed leukocytosis of 12.7 with low hemoglobin 10.0, low hematocrit 30.1 with BUN increased to 52, creatinine 4.6 and blood glucose level today of 130. The patient for Urology reevaluation. Case discussed with staff. PHYSICAL EXAMINATION: GENERAL: A 56-year-old male. VITAL SIGNS: Afebrile with pulse of 80, respiratory rate 20 to 22, blood pressure of 140/80. HEENT: Showed pale, dry oral mucous membrane. Mildly nonicteric sclerae. LUNGS: Few scattered crepitation. Decreased air entry at bases. HEART: Positive S1 and S2. ABDOMEN: Soft with mild distention. No mass or organomegaly. No rebound tenderness or guarding. The patient on hemodialysis. EXTREMITIES: Without significant clubbing, cyanosis, or edema. NEUROLOGIC: No reported new neurological deficits, sensory or motor. The patient is status post PermCath insertion recently and to be scheduled for AV fistula creation in the OR. IMPRESSION: 1. Re-exacerbation of peptic ulcer disease with episodes of mild nausea and vomiting, which also could be related to the patient's renal disorders. 2. Anemia, most likely secondary to above. 3. Congestive heart failure by recent history. 4. Known history of chronic obstructive pulmonary disease, hypertension, sleep apnea, coronary artery disease. 5. Renal mass by radiology study results. 6. Recently reported elevated troponin level. Cardiology followup is in process. SUGGESTIONS: 1. Continue current management. 2. Again, no aggressive GI workup in the meantime until the patient is more stable clinically. 3. Guaiac all the stool daily x3. 4. Zofran IV. Further recommendations to follow. Holly Garcia MD [facility] # [id number]
--- NOTE | 2017-07-25 22:28 | CP.PCM.PN ---
Subjective - Date & Time of Evaluation Date of Evaluation: 07/25/17 Time of Evaluation: 18:35 - Subjective Subjective: Pt seen and evaluated Objective - Vital Signs/Intake and Output Vital Signs (last 24 hours): Temp Pulse Resp BP Pulse Ox 98.1 F 66 96 H 133/78 97 07/25/17 08:34 07/25/17 16:25 07/25/17 08:34 07/25/17 21:32 07/25/17 08:34 Intake and Output: 07/25/17 07/26/17 18:59 06:59 Intake Total 240 Balance 240 - Medications Medications: Current Medications Acetaminophen/Codeine Phosphate (Tylenol/Codeine 300 Mg/30 Mg) 1 ea PO Q6 PRN PRN Reason: Pain, severe (8-10) Albuterol Sulfate (Albuterol 0.083% Inhal Madie (2.5 Mg/3 Ml) Ud) 2.5 mg INH ONCE PRN PRN Reason: Wheezing Budesonide (Pulmicort Respules) 0.5 mg INH RQ12 [facility] Last Admin: 07/25/17 19:00 Dose: Not Given Carvedilol (Coreg) 12.5 mg PO BID [facility] Last Admin: 07/25/17 17:06 Dose: 12.5 mg Epoetin Ant (Procrit) 10,000 unit IV TTS [facility] Last Admin: 07/24/17 10:42 Dose: 10,000 unit Furosemide (Lasix) 40 mg IVP Q12 [facility] Last Admin: 07/25/17 21:32 Dose: 40 mg Guaifenesin (Mucinex La) 600 mg PO BID [facility] Last Admin: 07/25/17 17:06 Dose: 600 mg Hydralazine HCl (Apresoline) 100 mg PO Q8 [facility] Last Admin: 07/25/17 21:32 Dose: 100 mg Ipratropium [place] (Atrovent) 0.5 mg IH RQ6 [facility] Last Admin: 07/25/17 19:00 Dose: Not Given Montelukast Sodium (Singulair) 10 mg PO DAILY [facility] Last Admin: 07/25/17 09:31 Dose: 10 mg Pantoprazole Sodium (Protonix Ec Tab) 40 mg PO DAILY [facility] Last Admin: 07/25/17 09:31 Dose: 40 mg Rosuvastatin Calcium (Crestor) 10 mg PO HS [facility] Last Admin: 07/25/17 21:32 Dose: 10 mg Sevelamer Carbonate (Renvela) 800 mg PO TIDCC [facility] Last Admin: 07/25/17 17:06 Dose: 800 mg Vitamin B Complex/Vit C/Folic Acid (Nephro-Berry) 1 tab PO 0800 [facility] Last Admin: 07/25/17 09:31 Dose: 1 tab - Labs Labs: 07/24/17 08:06 07/24/17 08:06 PT 11.7 SECONDS (9.7-12.2) 07/16/17 13:57 INR 1.0 07/16/17 13:57 APTT 30 SECONDS (21-34) 07/16/17 13:57 Assessment and Plan (1) Chronic congestive heart failure Status: Acute (2) Dyspnea Status: Acute (3) Hypertension Status: Acute (4) Renal failure Status: Acute (5) Elevated troponin Status: Acute (6) Anemia Status: Acute
[2017-07-26] MEDS: Ipratropium 0.02% Inhal Soln (0.5 mg/2.5 ml) UD IH SCH ×4 (01:39→20:20)
--- NOTE | 2017-07-26 04:27 | CON ---
DATE: 07/25/2017 FOLLOWUP RENAL CONSULTATION LOCATION: The patient is located in room #671, bed A. REQUESTED BY: Tobin Witt MD REASON FOR FOLLOWUP: Endstage renal disease, left renal mass for further evaluation. HISTORY OF PRESENT ILLNESS: Mr. Mehta is a 56-year-old middle-aged obese male with a past medical history significant for longstanding hypertension, diabetes, hyperlipidemia, nephrotic-range proteinuria, left renal mass, asthma, CHF, endstage renal disease with persistent shortness of breath, dyspnea on exertion - not improving with diuretics, started on hemodialysis. Patient is feeling much better, not in acute distress. The patient is able to sleep very well. Since hemodialysis was started, patient denies any chest pain or palpitation, denies any fever or cough, no abdominal pain, and no nausea, vomiting, or diarrhea. PHYSICAL EXAMINATION: GENERAL: Mr. Mehta is a 56-year-old obese male, moderately built, moderately nourished, not in distress. VITAL SIGNS: Blood pressure 118/78, pulse 66, respirations about 20, temperature 98.1, height 5 feet 6 inches, and weight is 214 pounds. HEENT: Pupils are normal and reactive to light and accommodation. Conjunctivae pink, sclerae anicteric. Tongue is moist. Trachea is midline. LUNGS: Symmetric on both sides. Bilateral breath sounds present. Clear on auscultation. CARDIOVASCULAR SYSTEM: [place] at the fifth intercostal space, midclavicular line. S1 and S2 heard. No murmur or gallop. ABDOMEN: Protuberant, soft, and tympanic. No guarding, no rigidity. No hepatosplenomegaly. CENTRAL NERVOUS SYSTEM: Patient is alert, awake, and oriented x3. Nonfocal neurological examination. Cranial nerves II through XII are grossly intact. Sensory and motor system is within normal limits. EXTREMITIES: No cyanosis, no clubbing, and no edema. LABORATORY DATA: Include as follows: As of 07/24/2017, WBC is 12.7, hemoglobin 10, hematocrit is 30.1, and platelets 205. Sodium 133, potassium 4.1, chloride 94, CO2 27, BUN 52, creatinine 4.6, glucose 137, calcium 8.7, total bilirubin is 0.3, AST 25, ALT 30, alkaline phosphatase 62, total protein 7.1, and albumin is 3.7. Accu-Chek is 130. ASSESSMENT: In summary, Mr. Mehta is a 56-year-old obese, male with a history of longstanding hypertension, diabetes, hyperlipidemia, nephrotic-range proteinuria, asthma, and left renal mass with worsening shortness of breath - not responding with diuretics, started on hemodialysis. 1. Endstage renal disease, most likely secondary to diabetic nephropathy, cannot rule out underlying chronic glomerulonephritis - such as or membranous glomerulonephritis. 2. Hypertension. Blood pressure is stable. Continue his antihypertensive medications; hydralazine, clonidine, and Coreg at 12.25 mg p.o. b.i.d. 3. Renal mass, rule out renal cell carcinoma. CT scan with contrast is consistent with a 4.3-cm left upper pole renal mass - solid in nature, rule out renal cell carcinoma. Follow up with Urology for further evaluation. May need a partial nephrectomy or total nephrectomy. 4. Anemia secondary to renal failure and iron deficiency, continue Epogen and intravenous iron as needed. 5. Exacerbation of asthma. 6. Hyperlipidemia. Continue Crestor. Continue Lasix. The patient is scheduled for possible arteriovenous fistula in the morning. We will follow with you. PLAN: Continue hemodialysis 3 times a week from next week; Wednesday, and Wednesday. We will try to follow up with a social media editor for outpatient hemodialysis at [facility]. Thank you for allowing me to participate in your patient's care. Talya Vogel MD
[2017-07-26] MEDS: Budesonide 0.5 mg/2 ml Inhal Susp UD INH SCH ×2 (07:25→20:20)
[2017-07-26] MEDS ORDERED: HEPARIN-NS 5,000 UNITS/500 ML 5,000 UNIT/500 ML BAG IV ONE (07:37)
[2017-07-26] MEDS ORDERED: ceFAZolin IV 2 gm in Dextrose 2 GM/50 ML BAG IVPB ONE (07:37)
[2017-07-26 07:40] LABS: HEMOGLOBIN 9.3 g/dL (12.0-18.0); MEAN CELL VOLUME 86.8 fL (80.0-94.0); MEAN CORPUSCULAR HGB CONC 33.4 g/dL (33.0-37.0); RBC 3.21 Mil/uL (4.40-5.90); RED CELL DISTRIBUTION WIDTH 14.4 % (11.5-14.5); WHITE BLOOD COUNT 11.9 K/uL (4.8-10.8)
[2017-07-26] MEDS ORDERED: Sodium Chloride 0.9% 1,000 ML IV ONE (07:45)
[2017-07-26 07:54] LABS: PROTHROMBIN TIME 11.9 SECONDS (9.7-12.2)
[2017-07-26] MEDS ORDERED: Propofol 10 mg/ml Inj (20 ML) ONE (07:59)
[2017-07-26] MEDS ORDERED: Midazolam 2 MG/2 ML VIAL ONE (07:59)
[2017-07-26] MEDS ORDERED: ePHEDrine 50 mg/ml Inj ONE (08:21)
[2017-07-26] MEDS: Multivitamin Vitamin B Complex (Nephro-Vite) Tab PO SCH (08:23)
[2017-07-26 08:25] LABS: ALB/GLOB RATIO 1.1 (1.0-2.1); ALBUMIN 3.4 g/dL (3.5-5.0); CALCIUM 8.2 mg/dl (8.6-10.4)
[2017-07-26] MEDS ORDERED: Papaverine Hydrochloride 30 mg/ml (2ml) ONE (08:41)
[2017-07-26] MEDS: Pantoprazole 40 mg EC Tab PO SCH ×2 (09:00→12:35)
[2017-07-26] MEDS ORDERED: HYDROmorphone 1 mg/ml ISec IVP PRN (09:51)
--- NOTE | 2017-07-26 09:53 | PCM.SURG1 ---
Surgeon's Initial Post Op Note - Surgeon's Notes Surgeon: Dr. Shaw Food Packer: camille moreira PGY2 Type of Anesthesia: General LMA Pre-Operative Diagnosis: Renal failure Operative Findings: good Cephlic vein Post-Operative Diagnosis: SAme Operation Performed: Snuffbox radio-cephalic Arterio venous fistula creation Specimen/Specimens Removed: None Estimated Blood Loss: EBL {In ML}: 18 Blood Products Given: N/A Drains Used: No Drains Post-Op Condition: Good Date of Surgery/Procedure: 07/26/17 Time of Surgery/Procedure: 09:53
[2017-07-26] MEDS ORDERED: Sodium Chloride 0.9% 1,000 ML IV SCH (10:00)
[2017-07-26] MEDS: guaiFENesin 600 mg ER Tab PO SCH ×2 (11:07→18:22)
[2017-07-26 11:30] VITALS: RESP 20
--- NOTE | 2017-07-26 11:35 | OP ---
PROCEDURE DATE: 07/26/2017 PREOPERATIVE DIAGNOSIS: Renal failure. POSTOPERATIVE DIAGNOSIS: Renal failure. PROCEDURE CARRIED OUT: Snuffbox fistula, left wrist. SURGEON: Pedrito Shaw Jr., MD. COMPLIANCE TECHNICIAN: Dr. Dominique Jordan. ANESTHESIA ADMINISTERED BY: Justyn Noland MD. INDICATIONS: The patient is a middle-aged man with renal insufficiency, presently dialyzed by means of a catheter. This is the first attempt at dialysis access creation. OPERATIVE FINDINGS: An end-to-side fistula was created between the site of the cephalic vein and a branch of the radial artery at the anatomic snuffbox. DESCRIPTION OF PROCEDURE: The patient was given general anesthesia. Incision was made directly over the vein and the adjacent artery was dissected free. An end-to-side anastomosis using loupe magnification and heparin anticoagulation was carried out. After obtaining hemostasis, the wound was closed with Monocryl and Vicryl sutures and 5 nylon sutures were applied to the skin. Blood loss for procedure was 20 mL. Operation carried out was snuffbox fistula, left wrist. Prior to the operation, we imaged all the veins with ultrasound and the vein at the wrist was the satisfactory size and dimension. If this is not adequate, an upper extremity fistula can be created. Pedrito Shaw Jr., MD
--- NOTE | 2017-07-26 11:58 | CP.PCM.CON ---
Past Patient History - Past Medical History & Family History Past Medical History?: Yes - Past Social History Smoking Status: Former Smoker - CARDIAC Hx Congestive Heart Failure: Yes Hx Hypertension: Yes - PULMONARY Hx Asthma: Yes Hx Pneumonia: Yes - RENAL Other/Comment: kidney insufficiency - MUSCULOSKELETAL/RHEUMATOLOGICAL Hx Back Pain: Yes Hx Falls: No Hx Herniated Disk: Yes - PSYCHIATRIC Hx Substance Use: No - SURGICAL HISTORY Hx Appendectomy: Yes (1982) - ANESTHESIA Hx Anesthesia: Yes Hx Anesthesia Reactions: Yes Hx Malignant Hyperthermia: No Has any member of the family had a problem w/ anesthesia?: No Meds Allergies/Adverse Reactions: Allergies Allergy/AdvReac Type Severity Reaction Status Date / Time No Known Allergies Allergy Verified 07/15/17 08:02 - Medications Medications: Current Medications Acetaminophen/Codeine Phosphate (Tylenol/Codeine 300 Mg/30 Mg) 1 ea PO Q6 PRN PRN Reason: Pain, severe (8-10) Albuterol Sulfate (Albuterol 0.083% Inhal Madie (2.5 Mg/3 Ml) Ud) 2.5 mg INH ONCE PRN PRN Reason: Wheezing Budesonide (Pulmicort Respules) 0.5 mg INH RQ12 [facility] Last Admin: 07/26/17 07:25 Dose: Not Given Carvedilol (Coreg) 12.5 mg PO BID [facility] Last Admin: 07/26/17 09:06 Dose: Not Given Epoetin Ant (Procrit) 10,000 unit IV TTS [facility] Last Admin: 07/24/17 10:42 Dose: 10,000 unit Furosemide (Lasix) 40 mg IVP Q12 [facility] Last Admin: 07/26/17 09:00 Dose: Not Given Guaifenesin (Mucinex La) 600 mg PO BID [facility] Last Admin: 07/26/17 11:07 Dose: Not Given Hydralazine HCl (Apresoline) 100 mg PO Q8 [facility] Last Admin: 07/26/17 06:09 Dose: Not Given Hydromorphone HCl (Dilaudid) 1 mg IVP Q4H PRN PRN Reason: Pain, severe (8-10) Sodium Chloride (Sodium Chloride 0.9%) 1,000 mls @ 75 mls/hr IV .[id number] [facility] Ipratropium [place] (Atrovent) 0.5 mg IH RQ6 [facility] Last Admin: 07/26/17 07:25 Dose: Not Given Montelukast Sodium (Singulair) 10 mg PO DAILY [facility] Last Admin: 07/26/17 09:00 Dose: Not Given Oxycodone/Acetaminophen (Percocet 5/325 Mg Tab) 2 tab PO Q4H PRN PRN Reason: Pain, moderate (4-7) Stop: 07/29/17 09:51 Pantoprazole Sodium (Protonix Ec Tab) 40 mg PO DAILY [facility] Last Admin: 07/26/17 09:00 Dose: Not Given Rosuvastatin Calcium (Crestor) 10 mg PO HS [facility] Last Admin: 07/25/17 21:32 Dose: 10 mg Sevelamer Carbonate (Renvela) 800 mg PO TIDCC [facility] Last Admin: 07/26/17 08:24 Dose: Not Given Vitamin B Complex/Vit C/Folic Acid (Nephro-Berry) 1 tab PO 0800 [facility] Last Admin: 07/26/17 08:23 Dose: Not Given Results - Vital Signs Recent Vital Signs: Last Vital Signs Temp 98.1 F 07/26/17 11:17 Pulse 81 07/26/17 11:17 Resp 20 07/26/17 11:17 BP 157/75 H 07/26/17 11:17 Pulse Ox 100 07/26/17 11:17 - Labs Result Diagrams: 07/26/17 07:23 07/26/17 07:23 Labs: Laboratory Results - last 24 hr 07/21/17 07/24/17 07/26/17 13:59 12:31 06:44 WBC RBC Hgb Hct MCV MCH MCHC RDW Plt Count MPV PT INR APTT Sodium Potassium Chloride Carbon Dioxide Anion Gap BUN Creatinine Est GFR ( Amer) Est GFR (Non-Af Amer) POC Glucose (mg/dL) 108 94 Random Glucose Calcium Total Bilirubin AST ALT Alkaline Phosphatase Total Protein Albumin Globulin Albumin/Globulin Ratio CLIF 6 Profile Negative 07/26/17 07/26/17 07/26/17 07:23 07:23 07:23 WBC 11.9 H RBC 3.21 L Hgb 9.3 L Hct 27.9 L MCV 86.8 MCH 29.0 MCHC 33.4 RDW 14.4 Plt Count 171 MPV 9.0 PT 11.9 INR 1.0 APTT 32 Sodium 131 L Potassium 3.9 Chloride 97 L Carbon Dioxide 23 Anion Gap 15 BUN 68 H Creatinine 6.3 H Est GFR ( Amer) 11 Est GFR (Non-Af Amer) 9 POC Glucose (mg/dL) Random Glucose 90 Calcium 8.2 L Total Bilirubin 0.5 AST 44 ALT 48 Alkaline Phosphatase 57 Total Protein 6.5 Albumin 3.4 L Globulin 3.1 Albumin/Globulin Ratio 1.1 CLIF 6 Profile Assessment & Plan - Assessment and Plan (Free Text) Assessment: IMP: renal failure renal mass full note to be dictated - Date & Time Date: 07/26/17 Time: 11:58
[2017-07-26] MEDS: Acetaminophen-Codeine 300/30 mg Tab PO PRN ×2 (12:33→21:42)
--- NOTE | 2017-07-26 13:45 | PN ---
DATE: LOCATION: [facility], bed A. SUBJECTIVE: This is a 56-year-old male seen and examined in rounds without significant reported changes, but mild nausea. Patient is post AV fistula formation for his hemodialysis. The entire chart is reviewed including but not limited to the most recent lab and radiology study results, current and the previous medication list, current and the previous medical events. Case discussed with the staff at length. Patient still has leukocytosis of 11.9 with hemoglobin drop to 9.3, hematocrit 27.9 with low sodium of 131 with BUN elevated to 68, creatinine 6.3 with low calcium of 8.2 and low albumin 3.4. PHYSICAL EXAMINATION GENERAL: A 56-year-old man. VITAL SIGNS: Afebrile with heart rate of 70, respiratory rate of 16 to 18 with blood pressure of 154/68. HEENT: Showed pale, dry mucoid membranes. Nonicteric sclerae. LUNGS: A few scattered crepitations with decreased air entry at bases. HEART: Positive S1 and S2. ABDOMEN: Soft with mild tenderness. No mass or organomegaly. No rebound tenderness or guarding. EXTREMITIES: placed AV fistula. No clubbing, cyanosis, or edematous changes. NEUROLOGIC: No new reported neurological deficits, sensory or motor. IMPRESSION: 1. Re-exacerbation of peptic ulcer disease. 2. Renal failure, on hemodialysis. 3. Congestive heart failure by recent history. 4. Anemia most likely secondary to above. 5. Known history of but limited to hypertension, chronic obstructive pulmonary disease, coronary artery disease with sleep apnea. 6. Renal mass by Radiology study results, for Urology reevaluation. SUGGESTIONS: 1. Agree with your plan. 2. Continue proton-pump inhibitors with Zofran IV. 3. Urology reevaluation. 4. Despite the patient needs endoscopic evaluation of the gastrointestinal tract, we will observe closely and no aggressive measure in the meantime until the patient is more stable clinically. Holly Garcia MD
[2017-07-26] MEDS: Oxycodone/Acetaminophen 5/325 mg Tab PO PRN (18:21)
--- NOTE | 2017-07-26 19:16 | CP.PCM.PN ---
Subjective - Date & Time of Evaluation Date of Evaluation: 07/26/17 Time of Evaluation: 19:14 - Subjective Subjective: pt is seen and examined by me, follow up consult is dictated #[id number] s/p hd today, uf 3.3 lit s/p left UE avf f/u with urology Objective - Vital Signs/Intake and Output Vital Signs (last 24 hours): Temp Pulse Resp BP Pulse Ox 97.8 F 88 20 152/74 H 96 07/26/17 16:16 07/26/17 16:16 07/26/17 16:16 07/26/17 18:22 07/26/17 16:16 Intake and Output: 07/26/17 07/27/17 18:59 06:59 Intake Total 450 Balance 450 - Medications Medications: Current Medications Acetaminophen/Codeine Phosphate (Tylenol/Codeine 300 Mg/30 Mg) 1 ea PO Q6 PRN PRN Reason: Pain, severe (8-10) Last Admin: 07/26/17 12:33 Dose: 1 ea Albuterol Sulfate (Albuterol 0.083% Inhal Madie (2.5 Mg/3 Ml) Ud) 2.5 mg INH ONCE PRN PRN Reason: Wheezing Budesonide (Pulmicort Respules) 0.5 mg INH RQ12 [facility] Last Admin: 07/26/17 07:25 Dose: Not Given Carvedilol (Coreg) 12.5 mg PO BID [facility] Last Admin: 07/26/17 18:22 Dose: 12.5 mg Epoetin Ant (Procrit) 10,000 unit IV TTS [facility] Last Admin: 07/24/17 10:42 Dose: 10,000 unit Furosemide (Lasix) 40 mg IVP Q12 [facility] Last Admin: 07/26/17 09:00 Dose: Not Given Guaifenesin (Mucinex La) 600 mg PO BID [facility] Last Admin: 07/26/17 18:22 Dose: 600 mg Hydralazine HCl (Apresoline) 100 mg PO Q8 [facility] Last Admin: 07/26/17 13:43 Dose: Not Given Hydromorphone HCl (Dilaudid) 1 mg IVP Q4H PRN PRN Reason: Pain, severe (8-10) Sodium Chloride (Sodium Chloride 0.9%) 1,000 mls @ 75 mls/hr IV .[id number] [facility] Last Admin: 07/26/17 12:28 Dose: Not Given Ipratropium [place] (Atrovent) 0.5 mg IH RQ6 [facility] Last Admin: 07/26/17 13:21 Dose: Not Given Montelukast Sodium (Singulair) 10 mg PO DAILY [facility] Last Admin: 07/26/17 09:00 Dose: Not Given Oxycodone/Acetaminophen (Percocet 5/325 Mg Tab) 2 tab PO Q4H PRN PRN Reason: Pain, moderate (4-7) Stop: 07/29/17 09:51 Last Admin: 07/26/17 18:21 Dose: 2 tab Pantoprazole Sodium (Protonix Ec Tab) 40 mg PO DAILY [facility] Last Admin: 07/26/17 12:35 Dose: 40 mg Rosuvastatin Calcium (Crestor) 10 mg PO HS [facility] Last Admin: 07/25/17 21:32 Dose: 10 mg Sevelamer Carbonate (Renvela) 800 mg PO TIDCC [facility] Last Admin: 07/26/17 18:22 Dose: 800 mg Vitamin B Complex/Vit C/Folic Acid (Nephro-Berry) 1 tab PO 0800 [facility] Last Admin: 07/26/17 08:23 Dose: Not Given - Labs Labs: 07/26/17 07:23 07/26/17 07:23 PT 11.9 SECONDS (9.7-12.2) 07/26/17 07:23 INR 1.0 07/26/17 07:23 APTT 32 SECONDS (21-34) 07/26/17 07:23
--- NOTE | 2017-07-26 22:37 | CP.PCM.PN ---
Subjective - Date & Time of Evaluation Date of Evaluation: 07/26/17 Time of Evaluation: 18:20 - Subjective Subjective: Pt is seen and examined, feels alot better, she is still short of breath Objective - Vital Signs/Intake and Output Vital Signs (last 24 hours): Temp Pulse Resp BP Pulse Ox 97.8 F 88 20 134/70 96 07/26/17 16:16 07/26/17 16:16 07/26/17 16:16 07/26/17 21:42 07/26/17 16:16 Intake and Output: 07/26/17 07/27/17 18:59 06:59 Intake Total 450 Balance 450 - Medications Medications: Current Medications Acetaminophen/Codeine Phosphate (Tylenol/Codeine 300 Mg/30 Mg) 1 ea PO Q6 PRN PRN Reason: Pain, severe (8-10) Last Admin: 07/26/17 21:42 Dose: 1 ea Albuterol Sulfate (Albuterol 0.083% Inhal Madie (2.5 Mg/3 Ml) Ud) 2.5 mg INH ONCE PRN PRN Reason: Wheezing Budesonide (Pulmicort Respules) 0.5 mg INH RQ12 [facility] Last Admin: 07/26/17 20:20 Dose: Not Given Carvedilol (Coreg) 12.5 mg PO BID [facility] Last Admin: 07/26/17 18:22 Dose: 12.5 mg Epoetin Ant (Procrit) 10,000 unit IV TTS [facility] Last Admin: 07/24/17 10:42 Dose: 10,000 unit Furosemide (Lasix) 40 mg IVP Q12 [facility] Last Admin: 07/26/17 21:42 Dose: 40 mg Guaifenesin (Mucinex La) 600 mg PO BID [facility] Last Admin: 07/26/17 18:22 Dose: 600 mg Hydralazine HCl (Apresoline) 100 mg PO Q8 [facility] Last Admin: 07/26/17 21:41 Dose: 100 mg Hydromorphone HCl (Dilaudid) 1 mg IVP Q4H PRN PRN Reason: Pain, severe (8-10) Sodium Chloride (Sodium Chloride 0.9%) 1,000 mls @ 75 mls/hr IV .[id number] [facility] Last Admin: 07/26/17 12:28 Dose: Not Given Ipratropium [place] (Atrovent) 0.5 mg IH RQ6 [facility] Last Admin: 07/26/17 20:20 Dose: Not Given Montelukast Sodium (Singulair) 10 mg PO DAILY [facility] Last Admin: 07/26/17 09:00 Dose: Not Given Oxycodone/Acetaminophen (Percocet 5/325 Mg Tab) 2 tab PO Q4H PRN PRN Reason: Pain, moderate (4-7) Stop: 07/29/17 09:51 Last Admin: 07/26/17 18:21 Dose: 2 tab Pantoprazole Sodium (Protonix Ec Tab) 40 mg PO DAILY [facility] Last Admin: 07/26/17 12:35 Dose: 40 mg Rosuvastatin Calcium (Crestor) 10 mg PO HS [facility] Last Admin: 07/26/17 22:02 Dose: 10 mg Sevelamer Carbonate (Renvela) 800 mg PO TIDCC [facility] Last Admin: 07/26/17 18:22 Dose: 800 mg Vitamin B Complex/Vit C/Folic Acid (Nephro-Berry) 1 tab PO 0800 [facility] Last Admin: 07/26/17 08:23 Dose: Not Given - Labs Labs: 07/26/17 07:23 07/26/17 07:23 PT 11.9 SECONDS (9.7-12.2) 07/26/17 07:23 INR 1.0 07/26/17 07:23 APTT 32 SECONDS (21-34) 07/26/17 07:23 - Constitutional Appears: No Acute Distress - Head Exam Head Exam: ATRAUMATIC, NORMAL INSPECTION, NORMOCEPHALIC - ENT Exam ENT Exam: Mucous Membranes Moist, Normal Exam - Respiratory Exam Respiratory Exam: Clear to Ausculation Bilateral, NORMAL BREATHING PATTERN Assessment and Plan (1) Chronic congestive heart failure Status: Acute (2) Dyspnea Status: Acute (3) Hypertension Status: Acute (4) Renal failure Status: Acute (5) Elevated troponin Status: Acute (6) Anemia Status: Acute
[2017-07-27] MEDS: Ipratropium 0.02% Inhal Soln (0.5 mg/2.5 ml) UD IH SCH ×3 (01:43→13:19)
--- NOTE | 2017-07-27 03:32 | PN ---
DATE: FOLLOWUP RENAL CONSULTATION LOCATION: Patient is located in room 671, bed A. REQUESTED BY: Tobin Witt MD REASON FOR FOLLOWUP: End-stage renal disease, for continuation of hemodialysis. HISTORY OF PRESENT ILLNESS: Mr. Mehta is a 56-year-old obese male with a past medical history significant for longstanding hypertension, diabetes, hyperlipidemia, asthma, nephrotic-range proteinuria, left renal mass, was admitted with severe shortness of breath, not responding to diuretics and started on hemodialysis. Patient is feeling much better, not in distress, status post right internal jugular PermCath and the left wrist AV fistula. Patient complains of pain in the AV fistula site. No chest pain or palpitation. No shortness of breath. No nausea, vomiting or diarrhea. PHYSICAL EXAMINATION: VITAL SIGNS: As follows, blood pressure 152/74, pulse 88, respirations 20, temperature 97.8, saturation 96%. Height 5 feet 6 inches, weight is 214 pounds. GENERAL: Mr. Mehta is a 56-year-old male, moderately-built, moderately-nourished, not in distress. HEENT: Pupils are normal and reactive to light and accommodation. Conjunctivae pink. Sclerae are anicteric. Tongue is moist. Trachea is midline. LUNGS: Symmetric on both sides. Bilateral breath sounds present. Clear on auscultation. CARDIOVASCULAR SYSTEM: [place] at the fifth intercostal space, midclavicular line. S1, S2 audible. No murmur or gallop. ABDOMEN: Protuberant, soft, tympanic. No guarding. No rigidity. No hepatosplenomegaly. No abdominal bruits. Patient has ecchymotic area from subcu heparin. CENTRAL VENOUS SYSTEM: Patient is alert, awake, oriented x3. Nonfocal neuro examination. Cranial nerves II through XII grossly intact. Sensory and motor system is within normal limits. EXTREMITIES: No cyanosis, no clubbing, no edema. Patient has a good bruit at the left wrist AV fistula. MEDICATIONS: His current medications include as follows: Albuterol inhaler, hydralazine 100 mg p.o. q. 8 hours, Atrovent 0.5 mg q. 6 hours, Coreg 12.5 mg p.o. b.i.d., Crestor 10 mg at bedtime, Dilaudid 1 mg IV q. 4 hours p.r.n., Lasix 40 mg IV q. 12 hours, Mucinex 600 mg p.o. b.i.d., Nephro-Berry 1 tablet p.o. daily, Percocet 2 tablets p.o. q. 4 hours p.r.n., Procrit 10,000 units three times a week, Protonix 40 mg p.o. daily, Pulmicort inhaler q. 12 hours, Renvela 800 mg p.o. t.i.d., Singulair 10 mg p.o. daily, and normal saline at 75 mL per hour. LABORATORY DATA: His other lab data include as follows: As of 07/26/2017, WBC 11.9, hemoglobin 9.3, hematocrit is 27.9, platelets 171. PT 11.9, PTT 32. Sodium 131, potassium 3.9, chloride 97, CO2 23, BUN 68, creatinine 6.3, glucose 90, calcium 8.2. Total bili 0.5, AST 44, ALT 48, alkaline phosphatase 57, total protein 6.5, albumin is 3.2. ASSESSMENT: In summary, Mr. Mehta is about a 56-year-old obese male with a past medical history significant for longstanding hypertension, diabetes, asthma, hyperlipidemia, nephrotic-range proteinuria, left renal mass, congestive heart failure with worsening renal function, not responding to Lasix, started on hemodialysis last week. Patient was given dialysis , Wednesday and Wednesday. Patient underwent left wrist AV fistula today. Patient also underwent hemodialysis this afternoon after arteriovenous fistula, ultrafiltration about 3 liters. 1. End-stage renal disease. Continue hemodialysis three times a week, Wednesday, Wednesday and Wednesday. 2. Asthma exacerbation. 3. Hypertension. 4. Anemia secondary to renal failure and iron deficiency. 5. Nephrotic-range proteinuria. 6. Left renal mass, rule out renal cell carcinoma. Continue analgesics as per the Surgery and also follow up with Urology for further management of left renal mass and follow up with Social Service for outpatient hemodialysis unit placement. Continue Nephro-Berry, continue Epogen and continue Renvela. We will follow with you. Thank you for allowing me to participate in your patient's care. Talya Vogel MD [facility] # [id number]
[2017-07-27] MEDS: Acetaminophen-Codeine 300/30 mg Tab PO PRN (03:33)
[2017-07-27] MEDS: Budesonide 0.5 mg/2 ml Inhal Susp UD INH SCH (08:11)
[2017-07-27] MEDS: Multivitamin Vitamin B Complex (Nephro-Vite) Tab PO SCH (08:24)
[2017-07-27] MEDS: Oxycodone/Acetaminophen 5/325 mg Tab PO PRN (08:37)
--- NOTE | 2017-07-27 08:53 | CP.PCM.PN ---
Subjective - Date & Time of Evaluation Date of Evaluation: 07/27/17 Time of Evaluation: 08:51 - Subjective Subjective: pt is seen and examined, follow up consult is dictated #[phone] pt is accepted to out pt HD at [facility] at 9.30 am pt agreed for the schedule pt can be discharged home from renal stand point follow up with urology for left renal mass Objective - Vital Signs/Intake and Output Vital Signs (last 24 hours): Temp Pulse Resp BP Pulse Ox 97.7 F 69 20 131/66 97 07/26/17 23:50 07/27/17 01:15 07/26/17 23:50 07/26/17 23:50 07/26/17 23:50 Intake and Output: 07/27/17 07/27/17 06:59 18:59 Intake Total 850 Balance 850 - Medications Medications: Current Medications Acetaminophen/Codeine Phosphate (Tylenol/Codeine 300 Mg/30 Mg) 1 ea PO Q6 PRN PRN Reason: Pain, severe (8-10) Last Admin: 07/27/17 03:33 Dose: 1 ea Albuterol Sulfate (Albuterol 0.083% Inhal Madie (2.5 Mg/3 Ml) Ud) 2.5 mg INH ONCE PRN PRN Reason: Wheezing Budesonide (Pulmicort Respules) 0.5 mg INH RQ12 [facility] Last Admin: 07/27/17 08:11 Dose: Not Given Carvedilol (Coreg) 12.5 mg PO BID [facility] Last Admin: 07/26/17 18:22 Dose: 12.5 mg Epoetin Ant (Procrit) 10,000 unit IV TTS [facility] Last Admin: 07/24/17 10:42 Dose: 10,000 unit Furosemide (Lasix) 40 mg IVP Q12 [facility] Last Admin: 07/26/17 21:42 Dose: 40 mg Guaifenesin (Mucinex La) 600 mg PO BID [facility] Last Admin: 07/26/17 18:22 Dose: 600 mg Hydralazine HCl (Apresoline) 100 mg PO Q8 [facility] Last Admin: 07/27/17 05:43 Dose: 100 mg Hydromorphone HCl (Dilaudid) 1 mg IVP Q4H PRN PRN Reason: Pain, severe (8-10) Sodium Chloride (Sodium Chloride 0.9%) 1,000 mls @ 75 mls/hr IV .[id number] [facility] Last Admin: 07/26/17 12:28 Dose: Not Given Ipratropium [place] (Atrovent) 0.5 mg IH RQ6 [facility] Last Admin: 07/27/17 08:11 Dose: Not Given Montelukast Sodium (Singulair) 10 mg PO DAILY [facility] Last Admin: 07/26/17 09:00 Dose: Not Given Oxycodone/Acetaminophen (Percocet 5/325 Mg Tab) 2 tab PO Q4H PRN PRN Reason: Pain, moderate (4-7) Stop: 07/29/17 09:51 Last Admin: 07/27/17 08:37 Dose: 2 tab Pantoprazole Sodium (Protonix Ec Tab) 40 mg PO DAILY [facility] Last Admin: 07/26/17 12:35 Dose: 40 mg Rosuvastatin Calcium (Crestor) 10 mg PO HS [facility] Last Admin: 07/26/17 22:02 Dose: 10 mg Sevelamer Carbonate (Renvela) 800 mg PO TIDCC [facility] Last Admin: 07/27/17 08:23 Dose: 800 mg Vitamin B Complex/Vit C/Folic Acid (Nephro-Berry) 1 tab PO 0800 [facility] Last Admin: 07/27/17 08:24 Dose: 1 tab - Labs Labs: 07/26/17 07:23 07/26/17 07:23 PT 11.9 SECONDS (9.7-12.2) 07/26/17 07:23 INR 1.0 07/26/17 07:23 APTT 32 SECONDS (21-34) 07/26/17 07:23
[2017-07-27] MEDS: Pantoprazole 40 mg EC Tab PO SCH (09:13)
[2017-07-27] MEDS: guaiFENesin 600 mg ER Tab PO SCH (09:20)
[2017-07-27 09:26] VITALS: PULSE 80; TEMP 98; O2SAT 98
--- NOTE | 2017-07-27 09:40 | CON ---
DATE: 07/27/2017 UROLOGY CONSULTATION UROLOGY CONSULTATION REQUESTED BY: Tobin Witt MD REASON FOR CONSULTATION: Renal mass. HISTORY OF PRESENT ILLNESS: The patient is a 56-year-old male with a left renal mass. The patient is in otherwise fair to poor health. The patient presented to the hospital with difficulty breathing. He reports this is due to his asthma. The patient was found to have CHF and asthma. The patient was found to have renal failure. The patient has began on dialysis via a poor venous access port. The patient also had creation of a vascular access shunt this morning via the upper extremity. Mr. Mehta reports no flank pain. Occasional abdominal pain. No hematuria. No dysuria. No history of previous urinary tract infection. No history of previous urolithiasis. The patient voids with fair urinary stream. There is history of hypertension. No history of diabetes. There has been no hematuria. No recent fever or rigors. The patient is unemployed. 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 He reports he is unemployed due to his asthma. The patient had a renal ultrasound and a CT scan performed. PHYSICAL EXAMINATION GENERAL: The patient is well-developed, well-nourished, overweight to obese middle-aged male. The patient is awake and alert. ABDOMEN: Soft, nontender and nondistended. No mass or organomegaly. BACK: No CVA tenderness. LABORATORY DATA: Reviewed as well. Renal failure is noted. The CT scan and ultrasound reported to show a left upper pole renal mass. IMPRESSION: A 56-year-old male with renal failure. The patient requires hemodialysis for his renal failure. History of congestive heart failure and asthma. The patient now has a left renal mass noted on CT scan and on ultrasound. The renal mass may be a renal tumor. The mass may require further therapy including surgical removal. RECOMMENDATIONS AND PLAN: Review radiographic studies. Further therapy to be determined and to follow according to the patient's clinical course. Thank you for recommending the patient for urology consultation. Sydney Bartlett MD cc: Tobin Witt MD
--- NOTE | 2017-07-27 10:31 | PCM.URO ---
Urology Progress Note - General General: No Complaints, Tolerating Diet - Subjective Abdominal Pain: No Flank Pain: No Nausea: No Vomiting: No Voiding Well: Yes Dysuria: No Hematuria: No Good Stream: Yes Stone Passed: No Dsypnea: No Chest Pain: No Fever & Chills: No - Objective Lab Results Last 24 Hours: Laboratory Results - last 24 hr 07/24/17 07/26/17 12:31 12:04 POC Glucose (mg/dL) 108 127 H Intake & Output: Intake & Output 07/26/17 07/27/17 07/27/17 18:59 06:59 18:59 Intake Total 450 850 Balance 450 850 Intake: IV 50 Intake, IV Amount 600 Right Wrist 600 Oral 400 250 Other: # Voids Urine, Voided 1 # Bowel Movements 0 Vital Signs: Vital Signs - 24 hr 07/26/17 07/26/17 07/26/17 10:45 11:00 11:17 Temperature 98.0 F 98.1 F Pulse Rate 74 75 81 Pulse Rate [ Right Radial] Respiratory 15 15 20 Rate Blood Pressure 155/76 H 150/71 157/75 H Blood Pressure [Left Arm] O2 Sat by Pulse 99 99 100 Oximetry 07/26/17 07/26/17 07/26/17 13:10 13:25 13:40 Temperature 97.7 F Pulse Rate 78 Pulse Rate [ 64 Right Radial] Respiratory 20 Rate Blood Pressure 152/83 H Blood Pressure 151/86 H 108/88 144/83 [Left Arm] O2 Sat by Pulse 97 Oximetry 07/26/17 07/26/17 07/26/17 13:55 14:10 14:40 Temperature Pulse Rate Pulse Rate [ Right Radial] Respiratory Rate Blood Pressure Blood Pressure 145/81 146/74 129/83 [Left Arm] O2 Sat by Pulse Oximetry 07/26/17 07/26/17 07/26/17 15:10 15:40 16:16 Temperature 97.4 F L 97.8 F Pulse Rate 88 Pulse Rate [ 74 Right Radial] Respiratory 22 20 Rate Blood Pressure 152/74 H Blood Pressure 137/88 140/76 [Left Arm] O2 Sat by Pulse 100 96 Oximetry 07/26/17 07/26/17 07/26/17 18:22 21:42 23:50 Temperature 97.7 F Pulse Rate 71 Pulse Rate [ Right Radial] Respiratory 20 Rate Blood Pressure 152/74 H 134/70 131/66 Blood Pressure [Left Arm] O2 Sat by Pulse 97 Oximetry 07/27/17 07/27/17 07/27/17 01:15 08:00 09:13 Temperature 98 F Pulse Rate 69 80 Pulse Rate [ Right Radial] Respiratory 20 Rate Blood Pressure 160/93 H 129/71 Blood Pressure [Left Arm] O2 Sat by Pulse 98 Oximetry 07/27/17 09:14 Temperature Pulse Rate Pulse Rate [ Right Radial] Respiratory Rate Blood Pressure 129/71 Blood Pressure [Left Arm] O2 Sat by Pulse Oximetry Imaging Studies: Reviewed (L renal mass) - Physical Exam Urine Color: Clear, Yellow - Plan Additional Information: Imp: L renal mass. Renal failure. Discussed w pt re finding and options. Poss surgery t/f. Poss bx. - Date & Time of Note Date: 07/27/17 Time: 10:31
--- NOTE | 2017-07-27 13:01 | CP.PCM.PN ---
Subjective - Date & Time of Evaluation Date of Evaluation: 07/27/17 Time of Evaluation: 12:59 - Subjective Subjective: Surgery Pt s&e. Underwent surgery yesterday. Tolerated it well. has good bruit Objective - Vital Signs/Intake and Output Vital Signs (last 24 hours): Temp Pulse Resp BP Pulse Ox 98 F 80 20 129/71 98 07/27/17 08:00 07/27/17 08:00 07/27/17 08:00 07/27/17 09:14 07/27/17 08:00 Intake and Output: 07/27/17 07/27/17 06:59 18:59 Intake Total 850 Balance 850 - Medications Medications: Current Medications Acetaminophen/Codeine Phosphate (Tylenol/Codeine 300 Mg/30 Mg) 1 ea PO Q6 PRN PRN Reason: Pain, severe (8-10) Last Admin: 07/27/17 03:33 Dose: 1 ea Albuterol Sulfate (Albuterol 0.083% Inhal Madie (2.5 Mg/3 Ml) Ud) 2.5 mg INH ONCE PRN PRN Reason: Wheezing Budesonide (Pulmicort Respules) 0.5 mg INH RQ12 [facility] Last Admin: 07/27/17 08:11 Dose: Not Given Carvedilol (Coreg) 12.5 mg PO BID [facility] Last Admin: 07/27/17 09:13 Dose: 12.5 mg Epoetin Ant (Procrit) 10,000 unit IV TTS [facility] Last Admin: 07/24/17 10:42 Dose: 10,000 unit Furosemide (Lasix) 40 mg IVP Q12 [facility] Last Admin: 07/27/17 09:14 Dose: 40 mg Guaifenesin (Mucinex La) 600 mg PO BID [facility] Last Admin: 07/27/17 09:20 Dose: Not Given Hydralazine HCl (Apresoline) 100 mg PO Q8 [facility] Last Admin: 07/27/17 05:43 Dose: 100 mg Hydromorphone HCl (Dilaudid) 1 mg IVP Q4H PRN PRN Reason: Pain, severe (8-10) Sodium Chloride (Sodium Chloride 0.9%) 1,000 mls @ 75 mls/hr IV .[id number] [facility] Last Admin: 07/26/17 12:28 Dose: Not Given Ipratropium [place] (Atrovent) 0.5 mg IH RQ6 [facility] Last Admin: 07/27/17 08:11 Dose: Not Given Montelukast Sodium (Singulair) 10 mg PO DAILY [facility] Last Admin: 07/27/17 09:14 Dose: 10 mg Oxycodone/Acetaminophen (Percocet 5/325 Mg Tab) 2 tab PO Q4H PRN PRN Reason: Pain, moderate (4-7) Stop: 07/29/17 09:51 Last Admin: 07/27/17 08:37 Dose: 2 tab Pantoprazole Sodium (Protonix Ec Tab) 40 mg PO DAILY [facility] Last Admin: 07/27/17 09:13 Dose: 40 mg Rosuvastatin Calcium (Crestor) 10 mg PO HS [facility] Last Admin: 07/26/17 22:02 Dose: 10 mg Sevelamer Carbonate (Renvela) 800 mg PO TIDCC [facility] Last Admin: 07/27/17 08:23 Dose: 800 mg Vitamin B Complex/Vit C/Folic Acid (Nephro-Berry) 1 tab PO 0800 [facility] Last Admin: 07/27/17 08:24 Dose: 1 tab - Labs Labs: 07/26/17 07:23 07/26/17 07:23 PT 11.9 SECONDS (9.7-12.2) 07/26/17 07:23 INR 1.0 07/26/17 07:23 APTT 32 SECONDS (21-34) 07/26/17 07:23 - Constitutional Appears: No Acute Distress - Head Exam Head Exam: ATRAUMATIC, NORMAL INSPECTION, NORMOCEPHALIC - Eye Exam Eye Exam: EOMI, Normal appearance, PERRL Pupil Exam: NORMAL ACCOMODATION, PERRL - ENT Exam ENT Exam: Mucous Membranes Moist, Normal Exam - Neck Exam Neck Exam: Full ROM, Normal Inspection. absent: Lymphadenopathy - Respiratory Exam Respiratory Exam: Clear to Ausculation Bilateral, NORMAL BREATHING PATTERN - Cardiovascular Exam Cardiovascular Exam: REGULAR RHYTHM, +S1, +S2. absent: Murmur - GI/Abdominal Exam GI & Abdominal Exam: Soft, Normal Bowel Sounds. absent: Tenderness - Rectal Exam Rectal Exam: NORMAL INSPECTION - Extremities Exam Extremities Exam: Full ROM, Tenderness Additional comments: L arm derssing C/D/I. + bruit. warm - Back Exam Back Exam: NORMAL INSPECTION - Neurological Exam Neurological Exam: Alert, Awake, CN II-XII Intact, Normal Gait, Oriented x3 - Psychiatric Exam Psychiatric exam: Normal Affect, Normal Mood - Skin Skin Exam: Dry, Intact, Normal Color, Warm Assessment and Plan - Assessment and Plan (Free Text) Assessment: POd 1 s/p L AVF : good bruits -OK to use permacath until AVF matures -Ok to DC for surgical standpoint -Follow up at Dr. Shaw's office 1-2 weeks to remove stitiches and to check fistula maturation DW Dr. Shaw
--- NOTE | 2017-07-27 13:09 | CP.PCM.PN ---
Subjective - Date & Time of Evaluation Date of Evaluation: 07/27/17 Time of Evaluation: 11:00 - Subjective Subjective: patient seen today , sob improved denies any chest pain, headache, dizziness, s/p L AVF POD #1 s/p permacath ON HD Objective - Vital Signs/Intake and Output Vital Signs (last 24 hours): Temp Pulse Resp BP Pulse Ox 98 F 80 20 129/71 98 07/27/17 08:00 07/27/17 08:00 07/27/17 08:00 07/27/17 09:14 07/27/17 08:00 Intake and Output: 07/27/17 07/27/17 06:59 18:59 Intake Total 850 Balance 850 - Medications Medications: Current Medications Acetaminophen/Codeine Phosphate (Tylenol/Codeine 300 Mg/30 Mg) 1 ea PO Q6 PRN PRN Reason: Pain, severe (8-10) Last Admin: 07/27/17 03:33 Dose: 1 ea Albuterol Sulfate (Albuterol 0.083% Inhal Madie (2.5 Mg/3 Ml) Ud) 2.5 mg INH ONCE PRN PRN Reason: Wheezing Budesonide (Pulmicort Respules) 0.5 mg INH RQ12 [facility] Last Admin: 07/27/17 08:11 Dose: Not Given Carvedilol (Coreg) 12.5 mg PO BID [facility] Last Admin: 07/27/17 09:13 Dose: 12.5 mg Epoetin Ant (Procrit) 10,000 unit IV TTS [facility] Last Admin: 07/24/17 10:42 Dose: 10,000 unit Furosemide (Lasix) 40 mg IVP Q12 [facility] Last Admin: 07/27/17 09:14 Dose: 40 mg Guaifenesin (Mucinex La) 600 mg PO BID [facility] Last Admin: 07/27/17 09:20 Dose: Not Given Hydralazine HCl (Apresoline) 100 mg PO Q8 [facility] Last Admin: 07/27/17 05:43 Dose: 100 mg Hydromorphone HCl (Dilaudid) 1 mg IVP Q4H PRN PRN Reason: Pain, severe (8-10) Sodium Chloride (Sodium Chloride 0.9%) 1,000 mls @ 75 mls/hr IV .[id number] [facility] Last Admin: 07/26/17 12:28 Dose: Not Given Ipratropium [place] (Atrovent) 0.5 mg IH RQ6 [facility] Last Admin: 07/27/17 08:11 Dose: Not Given Montelukast Sodium (Singulair) 10 mg PO DAILY [facility] Last Admin: 07/27/17 09:14 Dose: 10 mg Oxycodone/Acetaminophen (Percocet 5/325 Mg Tab) 2 tab PO Q4H PRN PRN Reason: Pain, moderate (4-7) Stop: 07/29/17 09:51 Last Admin: 07/27/17 08:37 Dose: 2 tab Pantoprazole Sodium (Protonix Ec Tab) 40 mg PO DAILY [facility] Last Admin: 07/27/17 09:13 Dose: 40 mg Rosuvastatin Calcium (Crestor) 10 mg PO HS [facility] Last Admin: 07/26/17 22:02 Dose: 10 mg Sevelamer Carbonate (Renvela) 800 mg PO TIDCC [facility] Last Admin: 07/27/17 08:23 Dose: 800 mg Vitamin B Complex/Vit C/Folic Acid (Nephro-Berry) 1 tab PO 0800 [facility] Last Admin: 07/27/17 08:24 Dose: 1 tab - Labs Labs: 07/26/17 07:23 07/26/17 07:23 PT 11.9 SECONDS (9.7-12.2) 07/26/17 07:23 INR 1.0 07/26/17 07:23 APTT 32 SECONDS (21-34) 07/26/17 07:23 Assessment and Plan - Assessment and Plan (Free Text) Assessment: A/P 56 yr old mal e with pmhx of asthma, HTN , admitted for sob, NSTEMI, acute renal failure started on HD Patient has a HD slot at [facility] and Dr. Sweeney cleared for discharge D/w Dr. Li from surgery standpoint for discharge home today and f /u alec [place]steads office in 1 week D/w crystal Trejo for discharge home today discharge plan discussed with patient including f/u visit, who understands and agrees with plan
--- NOTE | 2017-07-27 13:39 | PCM.HF ---
Heart Failure Core Measure - Heart Failure Ejection Fraction: 40 % or Greater CARIDAD Inhibitor Prescribed: No Contraindication/Reason for not providing: ESRD Beta-Colleen Prescribed: Carvedilol Angiotensin II Receptor Colleen Prescribed: No Contraindication/Reason for not providing: ESRD AnticoagulationTherapy for Atrial Fibrillation/Atrialflutter: No Contraindication/Reason for not providing: NO HX OF AFIB Aldosterone Antagonist Prescribed: No Contraindication/Reason for not providing: EF>45 Hydralazine Nitrate Prescribed: Yes Implantable Cardioverter Defibrillator Therapy: No Contraindication/Reason for not providing: EF>45 Cardiac Resynchronization Therapy Prescribed: No Contraindication/Reason for not providing: EF>45 - Follow up Will be discharged to: Home Follow Up Date (must be within 7 days from discharge): 07/30/17 Follow Up Time: 09:00
[2017-07-27 13:52] VITALS: BP 134/78
--- NOTE | 2017-07-27 23:23 | CP.PCM.DIS ---
Provider - Provider Date of Admission: 07/15/17 11:01 Attending physician: Tobin Witt MD Time Spent in preparation of Discharge (in minutes): 56 Diagnosis - Discharge Diagnosis (1) Chronic congestive heart failure Status: Acute (2) Dyspnea Status: Acute (3) Hypertension Status: Acute (4) Renal failure Status: Acute (5) Elevated troponin Status: Acute (6) Anemia Status: Acute Hospital Course - Lab Results Lab Results: Micro Results 07/15/17 08:23 Blood Blood Culture - Final NO GROWTH AFTER 5 DAYS 07/15/17 08:23 Blood Gram Stain - Final TEST NOT PERFORMED 07/15/17 08:23 Blood Blood Culture - Final NO GROWTH AFTER 5 DAYS 07/15/17 08:23 Blood Gram Stain - Final TEST NOT PERFORMED Most Recent Lab Values WBC 11.9 K/uL (4.8-10.8) H 07/26/17 07:23 RBC 3.21 Mil/uL (4.40-5.90) L 07/26/17 07:23 Hgb 9.3 g/dL (12.0-18.0) L 07/26/17 07:23 Hct 27.9 % (35.0-51.0) L 07/26/17 07:23 MCV 86.8 fL (80.0-94.0) 07/26/17 07:23 MCH 29.0 pg (27.0-31.0) 07/26/17 07:23 MCHC 33.4 g/dL (33.0-37.0) 07/26/17 07:23 RDW 14.4 % (11.5-14.5) 07/26/17 07:23 Plt Count 171 K/uL (130-400) 07/26/17 07:23 MPV 9.0 fL (7.2-11.7) 07/26/17 07:23 Neut % (Auto) 76.8 % (50.0-75.0) H 07/22/17 07:50 Lymph % (Auto) 9.9 % (20.0-40.0) L 07/22/17 07:50 Trigg % (Auto) 9.0 % (0.0-10.0) 07/22/17 07:50 Eos % (Auto) 3.8 % (0.0-4.0) 07/22/17 07:50 Baso % (Auto) 0.5 % (0.0-2.0) 07/22/17 07:50 Neut # 8.6 K/uL (1.8-7.0) H 07/22/17 07:50 Lymph # 1.1 K/uL (1.0-4.3) 07/22/17 07:50 Trigg # 1.0 K/uL (0.0-0.8) H 07/22/17 07:50 Eos # 0.4 K/uL (0.0-0.7) 07/22/17 07:50 Baso # 0.1 K/uL (0.0-0.2) 07/22/17 07:50 Neutrophils % (Manual) 80 % (50-75) H 07/22/17 07:50 Band Neutrophils % 1 % (0-2) 07/16/17 07:22 Lymphocytes % (Manual) 6 % (20-40) L 07/22/17 07:50 Monocytes % (Manual) 9 % (0-10) 07/22/17 07:50 Eosinophils % (Manual) 5 % (0-4) H 07/22/17 07:50 Differential Comment 07/17/17 12:16 Platelet Estimate Normal (NORMAL) 07/22/17 07:50 Polychromasia Slight 07/22/17 07:50 Hypochromasia (manual) Slight 07/22/17 07:50 Basophilic Stippling Slight 07/16/17 07:22 Microcytosis (manual) Slight 07/22/17 07:50 PT 11.9 SECONDS (9.7-12.2) 07/26/17 07:23 INR 1.0 07/26/17 07:23 APTT 32 SECONDS (21-34) 07/26/17 07:23 D-Dimer, Quantitative 945 ng/mlDDU (0-243) H 07/15/17 11:05 Sodium 131 mmol/L (132-148) L 07/26/17 07:23 Potassium 3.9 mmol/L (3.6-5.2) 07/26/17 07:23 Chloride 97 mmol/L (98-107) L 07/26/17 07:23 Carbon Dioxide 23 mmol/L (22-30) 07/26/17 07:23 Anion Gap 15 (10-20) 07/26/17 07:23 BUN 68 mg/dL (9-20) H 07/26/17 07:23 Creatinine 6.3 mg/dL (0.8-1.5) H 07/26/17 07:23 Est GFR ( Amer) 11 07/26/17 07:23 Est GFR (Non-Af Amer) 9 07/26/17 07:23 POC Glucose (mg/dL) 127 mg/dL (65-110) H 07/26/17 12:04 Random Glucose 90 mg/dL (75-110) 07/26/17 07:23 Calcium 8.2 mg/dl (8.6-10.4) L 07/26/17 07:23 Phosphorus 6.0 mg/dL (2.5-4.5) H 07/22/17 07:50 Iron 44 ug/dL (49-181) L 07/16/17 19:28 TIBC 230 ug/dL (250-450) L 07/16/17 19:28 % Saturation 19 (20-55) L 07/16/17 19:28 Total Bilirubin 0.5 mg/dL (0.2-1.3) 07/26/17 07:23 AST 44 U/L (17-59) 07/26/17 07:23 ALT 48 U/L (21-72) 07/26/17 07:23 Alkaline Phosphatase 57 U/L (38-126) 07/26/17 07:23 Total Creatine Kinase 78 U/L (55-170) 07/17/17 12:16 CK-MB (Mass) 1.23 ng/mL (0.0-3.38) 07/17/17 12:16 Troponin I 0.1270 ng/mL (0.00-0.120) H* 07/17/17 12:16 NT-Pro-B Natriuret Pep 2040 pg/mL (0-900) H 07/15/17 08:49 Total Protein 6.5 g/dL (6.3-8.3) 07/26/17 07:23 Albumin 3.4 g/dL (3.5-5.0) L 07/26/17 07:23 Globulin 3.1 gm/dL (2.2-3.9) 07/26/17 07:23 Albumin/Globulin Ratio 1.1 (1.0-2.1) 07/26/17 07:23 Okvto-0-Pxgiksljt 5.2 Relative % 07/21/17 09:24 Symdv-0-Jkwctoivx 8.4 Relative % 07/21/17 09:24 Beta Globulins 9.4 Relative % 07/21/17 09:24 Gamma Globulins 12.4 Relative % 07/21/17 09:24 Alpha Fetoprotein 1.1 ng/mL (0.0-7.5) 07/16/17 13:57 Carcinoembryonic Ag 5.8 ng/mL (0-3.0) H 07/16/17 13:57 CA 19-9 Antigen < 1.4 U/mL (0-37) 07/16/17 13:57 Procalcitonin 0.22 NG/ML (0.19-0.49) 07/18/17 08:22 PTH Intact Whole Molec 189 pg/mL (14-64) H 07/21/17 06:20 Urine Color Yellow (YELLOW) 07/15/17 21:09 Urine Clarity Hazy (Clear) 07/15/17 21:09 Urine pH 5.0 (5.0-8.0) 07/15/17 21:09 Ur Specific Pratt 1.014 (1.003-1.030) 07/15/17 21:09 Urine Protein 3+ mg/dL (NEGATIVE) H 07/15/17 21:09 Urine Glucose (UA) 2+ mg/dL (Normal) H 07/15/17 21:09 Urine Ketones Negative mg/dL (NEGATIVE) 07/15/17 21:09 Urine Blood Negative (NEGATIVE) 07/15/17 21:09 Urine Nitrate Negative (NEGATIVE) 07/15/17 21:09 Urine Bilirubin Negative (NEGATIVE) 07/15/17 21:09 Urine Urobilinogen Normal mg/dL (0.2-1.0) 07/15/17 21:09 Ur Leukocyte Esterase Neg Larisa/uL (Negative) 07/15/17 21:09 Urine WBC (Auto) 5 /hpf (0-5) 07/15/17 21:09 Urine RBC (Auto) 4 /hpf (0-3) H 07/15/17 21:09 Ur Squamous Epith Cells < 1 /hpf (0-5) 07/15/17 21:09 Urine Bacteria Rare (<OCC) 07/15/17 21:09 Ur Random Creatinine 75 mg/dL (20-370) 07/21/17 09:24 U Random Total Protein 2434 mg/g creat (22-128) H 07/21/17 09:24 Urine Collection Time 24 HRS 07/18/17 20:26 Urine Total Volume 5050 mL 07/18/17 20:26 Ur Creatinine 24 Hour 1807.9 mg/24hr (800-2800) 07/18/17 19:36 Ur Protein 24 Hr Calc 6211.5 mg/24hr (42-225) H 07/18/17 20:26 Urine Albumin (PEP) 64.6 Relative % 07/21/17 09:24 Ur Protein Fractions See note 07/21/17 09:24 Stool Occult Blood Negative (NEGATIVE) 07/16/17 13:07 CLIF 6 Profile Negative (NEGATIVE) 07/21/17 13:59 Complement C3 108.0 mg/dL (88.0-165.0) 07/21/17 06:20 Complement C4 40.9 mg/dL (14.0-44.0) 07/21/17 06:20 Hepatitis A IgM Ab Negative (NEGATIVE) 07/21/17 06:20 Hep Bs Antigen Negative (NEGATIVE) 07/21/17 06:20 Hep Bs Antibody Negative (NEGATIVE) 07/21/17 06:20 Hep B Core IgM Ab Negative (NEGATIVE) 07/21/17 06:20 Hepatitis C Antibody Negative (NEGATIVE) 07/21/17 06:20 Influenza Typ A,B (EIA) Negative for flu a/b (NEGATIVE) 07/15/17 08:23 Blood Type O POSITIVE 07/15/17 21:09 Antibody Screen Negative 07/15/17 21:09 - Hospital Course Hospital Course: A/P 56 yr old mal e with pmhx of asthma, HTN , admitted for sob, NSTEMI, acute renal failure started on HD Patient has a HD slot at [facility] and Dr. Sweeney cleared for discharge D/w Dr. Ruiz Govern stable from surgery standpoint for discharge home today and f /u alec Pleitez [place] office in 1 week Pt is stable for discharge home today from medical standpoint too discharge plan discussed with patient including f/u visit, who understands and agrees with plan Discharge Exam - Head Exam Head Exam: ATRAUMATIC, NORMAL INSPECTION, NORMOCEPHALIC - Eye Exam Eye Exam: EOMI, Normal appearance, PERRL Pupil Exam: NORMAL ACCOMODATION, PERRL - ENT Exam ENT Exam: Mucous Membranes Moist - Respiratory Exam Respiratory Exam: Clear to PA & Lateral, NORMAL BREATHING PATTERN - Cardiovascular Exam Cardiovascular Exam: REGULAR RHYTHM - Exam Exam: NORMAL INSPECTION Speculum exam: NORMAL SPECULUM EXAM - Skin Skin Exam: Dry Discharge Plan - Discharge Medications Prescriptions: hydrALAZINE [Apresoline] 100 mg PO Q8 #90 tab Carvedilol [Coreg] 12.5 mg PO BID #60 tab Atorvastatin [Lipitor] 40 mg PO DAILY #30 tab Vitamin B Complex/Vit C/Folic [Nephro-Berry] 1 tab PO 0800 #30 tab Budesonide [Pulmicort Respules] 0.5 mg INH RQ12 30 Days neb Sevelamer Carbonate [Renvela] 800 mg PO TIDCC #90 tab - Follow Up Plan Condition: STABLE Disposition: HOME/ ROUTINE Instructions: Hydralazine (By mouth), Atorvastatin (By mouth), Carvedilol (By mouth), Budesonide (By breathing), Sevelamer (By mouth), Vitamin B Complex (By mouth), Heart Failure (DC), Dialysis Diet (DC), Arteriovenous Fistula Creation for Hemodialysis (DC), End Stage Kidney Disease (DC), Perma-cath Placement (DC) Additional Instructions: Please f/u with HD as scheduled 930 am at [facility] Please f/u with Dr. Witt in 1 week Please f/u with Dr. Brown office in 1 -2 weeks Please f/u with Dr. Shaw office in 1 week- call and make appointment leave the dressing on the left arm until seen by Dr. Jeffrey Please f/u with Dr. Bartlett office - call and make appointment continue medication as per med. rec. follow up at Dr. Shaw's office in 1-2 weeks to check AVF and get sutures off. Referrals: Pedrito Shaw Jr., MD [Staff Provider] - Harmony Brown MD [Staff Provider] -
--- NOTE | 2017-07-28 04:25 | PN ---
DATE: LOCATION: Patient is located in room 671, bed A. REQUESTING PHYSICIAN: Tobin Witt MD. REASON FOR FOLLOWUP: Endstage renal disease, for continuation of hemodialysis. SUBJECTIVE: Mr. Mehta is a 56-year-old obese male with a history of longstanding hypertension,diabetes, hyperlipidemia, nephrotic-range proteinuria, asthma, was admitted with shortness of breath, not relieved with steroids and diuresis. Patient was started on hemodialysis and feeling much better, able to lie down flat and patient also underwent PermCath placement in right internal jugular and also left wrist AV fistula. Complains of slight pain in the left wrist. No chest pain. No palpitation. No fever. No cough. No abdominal pain. No nausea, vomiting, or diarrhea. PHYSICAL EXAMINATION: VITAL SIGNS: This morning, blood pressure is 129/71, pulse 80, respirations 20, temperature 98, saturation 98%. Height 5 feet 6 inches and weight is 214 pounds. GENERAL: Mr. Mehta is a 56-year-old middle-aged obese male, well built, well nourished, not in distress. HEENT: Pupils are normal and reactive to light and accommodation. Conjunctivae pink. Sclerae are anicteric. Tongue is moist. Trachea is midline. LUNGS: Symmetric on both sides. Bilateral breath sounds are present. Clear on auscultation. CARDIOVASCULAR SYSTEM: [place] at the fifth intercostal space in midclavicular line. S1 and S2 audible. No murmur, no gallop. ABDOMEN: Normal in appearance, soft, tympanic. No guarding. No rigidity. No hepatosplenomegaly. CENTRAL NERVOUS SYSTEM: The patient is alert, awake, and oriented x3. Nonfocal neuro examination. Cranial nerves II through XII grossly intact. Sensory and motor system is within normal limits. EXTREMITIES: No cyanosis, no clubbing, no edema. CURRENT MEDICATIONS: Include as follows, Singulair 10 mg p.o. at bedtime, Lasix 40 mg daily, albuterol inhaler, hydralazine 100 mg p.o. q. 8 hours, Nephro-Berry one tablet daily, Renvela 800 mg p.o. t.i.d., Coreg 12.5 mg p.o. b.i.d., Pulmicort, and Lipitor 40 mg p.o. daily. LABORATORY DATA: No new labs are available for today. As of 07/26/2017, WBC 11.9, hemoglobin 9.3, hematocrit 27.9, platelets 171. PT 11.9, PTT 32. Sodium 131, potassium 3.9, chloride 97, CO2 of 23, BUN 68, creatinine 6.3, glucose 94, calcium 8.2. Total bili 0.5, AST 44, ALT 48, alkaline phosphatase 57, total protein 6.5, albumin is 3.4. ASSESSMENT: In summary, Mr. Mehta is a 56-year-old middle-aged obese male with a history of longstanding hypertension, diabetes, hyperlipidemia, asthma, shortness of breath, left renal mass, nephrotic range proteinuria, and anemia. 1. End-stage renal disease. Continue hemodialysis three times a week, Wednesday, Wednesday, and Wednesday. Patient is accepted to outpatient hemodialysis unit in [facility], starting Wednesday, Wednesday, Wednesday. 2. Secondary hyperparathyroidism, secondary to renal failure. 3. Anemia secondary to renal failure and iron deficiency anemia. 4. Status post exacerbation of asthma. Patient is feeling much better. 5. Left renal mass, upper pole solid mass, rule out renal cell carcinoma. Follow up with Urology for further recommendation. Patient may need nephrectomy. Follow up with Dr. Bartlett. Patient can be discharged from the renal standpoint and patient will be followed as an outpatient. Thank you for allowing me to participate in your patient's care. Case discussed with Dr. Witt. Talya Vogel MD
== END 2017-07-27 14:53 | disposition home or self-care (01) | DRG 673 ==
LOC: C.ER 07:49 → C.9E 11:01 → C.6T 16:24
PROVIDERS: ADMIT Internal Medicine; ATTEND Internal Medicine
PROC: 30233N1 Transfusion of Nonautologous Red Blood Cells into Peripheral Vein, Percutaneous Approach (ICD-10-PCS; 2017-07-17)
PROC: 0JH63XZ Insertion of Tunneled Vascular Access Device into Chest Subcutaneous Tissue and Fascia, Percutaneous Approach (ICD-10-PCS; 2017-07-22)
PROC: 02HV33Z Insertion of Infusion Device into Superior Vena Cava, Percutaneous Approach (ICD-10-PCS; 2017-07-22)
PROC: B518ZZA Fluoroscopy of Superior Vena Cava, Guidance (ICD-10-PCS; 2017-07-22)
PROC: 5A1D70Z Performance of Urinary Filtration, Intermittent, Less than 6 Hours Per Day (ICD-10-PCS; 2017-07-23)
PROC: 5A1D70Z Performance of Urinary Filtration, Intermittent, Less than 6 Hours Per Day (ICD-10-PCS; 2017-07-24)
PROC: 5A1D70Z Performance of Urinary Filtration, Intermittent, Less than 6 Hours Per Day (ICD-10-PCS; 2017-07-26)
PROC: 031C0ZF Bypass Left Radial Artery to Lower Arm Vein, Open Approach (ICD-10-PCS; principal; 2017-07-26 07:45)
DX: N17.9 Acute kidney failure, unspecified (principal); I21.4 Non-ST elevation (NSTEMI) myocardial infarction; I13.2 Hypertensive heart and chronic kidney disease with heart failure and with stage 5 chronic kidney disease, or end stage renal disease; J45.901 Unspecified asthma with (acute) exacerbation; K27.9 Peptic ulcer, site unspecified, unspecified as acute or chronic, without hemorrhage or perforation; I50.32 Chronic diastolic (congestive) heart failure; E11.21 Type 2 diabetes mellitus with diabetic nephropathy; N18.6 End stage renal disease; N25.81 Secondary hyperparathyroidism of renal origin; E11.319 Type 2 diabetes mellitus with unspecified diabetic retinopathy without macular edema; E11.22 Type 2 diabetes mellitus with diabetic chronic kidney disease; J44.9 Chronic obstructive pulmonary disease, unspecified; D63.1 Anemia in chronic kidney disease; D50.9 Iron deficiency anemia, unspecified; I25.10 Atherosclerotic heart disease of native coronary artery without angina pectoris; G47.30 Sleep apnea, unspecified; E78.5 Hyperlipidemia, unspecified; E66.9 Obesity, unspecified; D72.829 Elevated white blood cell count, unspecified; N28.89 Other specified disorders of kidney and ureter; Z87.01 Personal history of pneumonia (recurrent); Z87.891 Personal history of nicotine dependence; Z87.11 Personal history of peptic ulcer disease; Z90.49 Acquired absence of other specified parts of digestive tract

== ENCOUNTER 2017-11-20 06:01 | Emergency (ER) | payer MEDICARE ==
[2017-11-20 06:02] VITALS: BMI 44.6
[2017-11-20] MEDS ORDERED: Albuterol-Ipratrop 3 mg / 0.5 (3 ml) UD ONE ×2 (06:07→06:41)
[2017-11-20 06:15] VITALS: TEMP 98.4
[2017-11-20] MEDS ORDERED: Albuterol-Ipratrop 3 mg / 0.5 (3 ml) UD INH STA ×3 (06:24→06:38)
--- NOTE | 2017-11-20 06:31 | C.PDOC ---
History Of Present Illness <Adonay Mendoza M - Last Filed: 11/20/17 09:05> <José Miguel Henry R - Last Filed: 11/21/17 16:34> 57 year old male presents to the ER with a complaint of a cough for the past few days. Patient reports left sided pain when coughing. Patient reports he is a dialysis patient, he was last dialyzed yesterday. Denies fever or chills. (José Miguel Henry R) <Adonay Mendoza M - Last Filed: 11/20/17 09:05> History Per: Patient History/Exam Limitations: no limitations Onset/Duration Of Symptoms: Days Current Symptoms Are (Timing): Still Present Current Respiratory Medications: None Associated Symptoms: Other (Pain with cough). denies: Fever, Chills Recent travel outside of the [place]: No <José Miguel Henry R - Last Filed: 11/21/17 16:34> Chief Complaint (Nursing): Shortness Of Breath Past Medical History Reviewed: Historical Data, Nursing Documentation, Vital Signs - Medical History PMH: Asthma, CHF, HTN, Pneumonia Surgical History: Appendectomy (1982) Family History: States: Unknown Family Hx - Social History Hx Alcohol Use: No Hx Substance Use: No <José Miguel Henry R - Last Filed: 11/21/17 16:34> Vital Signs: Last Vital Signs Temp 98.4 F 11/20/17 06:12 Pulse 85 11/20/17 09:11 Resp 20 11/20/17 09:11 BP 156/88 H 11/20/17 09:11 Pulse Ox 95 11/20/17 09:11 - [facility] Procedures (07/15/17) BYPASS LEFT RADIAL ARTERY TO LOWER ARM VEIN, OPEN APPROACH (07/15/17) FLUOROSCOPY OF SUPERIOR VENA CAVA, GUIDANCE (07/15/17) INSERTION OF INFUSION DEV INTO SUP VENA CAVA, PERC APPROACH (07/15/17) INSERTION OF VAD INTO CHEST SUBCU/FASCIA, PERC APPROACH (07/15/17) TRANSFUSE NONAUT RED BLOOD CELLS IN PERIPH VEIN, PERC (07/15/17) Review Of Systems Constitutional: Negative for: Fever, Chills ENT: Negative for: Throat Pain Cardiovascular: Negative for: Palpitations Respiratory: Positive for: Cough, Pleuritic Pain Gastrointestinal: Negative for: Nausea, Vomiting <Henry,José Miguel R - Last Filed: 11/21/17 16:34> Physical Exam - Physical Exam Appears: Non-toxic Skin: Normal Color, Warm, Dry Head: Atraumatic, Normacephalic Eye(s): bilateral: Normal Inspection Oral Mucosa: Moist Throat: Normal, No Erythema, No Exudate Chest: Symmetrical, No Tenderness Cardiovascular: Rhythm Regular Respiratory: Rales (Left lower), Rhonchi (Some), No Wheezing, Other (paroxysmal cough) Gastrointestinal/Abdominal: Soft, No Tenderness Neurological/Psych: Oriented x3, Normal Speech <José Miguel Henry R - Last Filed: 11/21/17 16:34> ED Course And Treatment - Laboratory Results Result Diagrams: 11/20/17 06:32 11/20/17 06:32 <Adonay Mendoza M - Last Filed: 11/20/17 09:05> - Laboratory Results Result Diagrams: 11/20/17 06:32 11/20/17 06:32 ECG: Interpreted By Me, Viewed By Me ECG Rhythm: Sinus Rhythm ECG Interpretation: Normal, No Acute Changes Interpretation Of ECG: NSR, normal tracings Rate From EC O2 Sat by Pulse Oximetry: 99 (Room air) Pulse Ox Interpretation: Normal - Radiology CXR: Interpreted by Me, Viewed By Me CXR Interpretation: Yes: Infiltrates (Right lower lung field) Progress Note: EKG, blood work, and CXR ordered. Albuterol and toradol administered. <José Miguel Henry R - Last Filed: 11/21/17 16:34> Disposition Counseled Patient/Family Regarding: Studies Performed, Diagnosis, Need For Followup, Rx Given - Disposition Disposition Time: 09:00 <Adonay Mendoza M - Last Filed: 11/20/17 09:05> <José Miguel Henry R - Last Filed: 11/21/17 16:34> - Disposition Disposition: AGAINST MEDICAL ADVICE Condition: STABLE Additional Instructions: you are signing out against medical advice and assuming responsibility of your care you do not hold myself and staff responsible for potential negative outcome including you are welcome to return to ER at any time see your doctor immediately take medications as prescribed. Prescriptions: Albuterol HFA [Ventolin HFA 90 mcg/actuation (8 g)] 2 puff IH [id number] #1 puff Azithromycin [Zithromax] 250 mg PO DAILY #4 tab predniSONE [predniSONE Tab] 50 mg PO DAILY #4 tab Instructions: Pneumonia, Adult (DC), Leaving Against Medical Advice Forms: [facility] (Bermudian), General Discharge Instructions Print Language: PALESTINIAN - Clinical Impression Clinical Impression: Pneumonia, Left against medical advice <Adonay Mendoza - Last Filed: 11/20/17 09:05> - Scribe Statement The provider has reviewed the documentation as recorded by the Scribe <José Miguel Henry - Last Filed: 11/21/17 16:34> - Scribe Statement Frederic Chacko All medical record entries made by the Scribe were at my direction and personally dictated by me. I have reviewed the chart and agree that the record accurately reflects my personal performance of the history, physical exam, medical decision making, and the department course for this patient. I have also personally directed, reviewed, and agree with the discharge instructions and disposition. (José Miguel Henry) Addendum <Adonay Mendoza - Last Filed: 11/20/17 09:05> <José Miguel Henry - Last Filed: 11/21/17 16:34> Addendum: 11/20/17 08:57 Received patient in s/o pending labs, reevaluation. Discussed results with patient and he does not wish to stay and no further studies. He will sign out ama. Advised patient to return to ER at any time for treatment Patient understands by leaving ama he is assuming responsibilty of his care and do not hold myself and staff responsible for any negative outcome including . (Adonay Mendoza)
--- NOTE | 2017-11-20 06:38 | C.PDOC ---
Chief Complaint (Nursing): Shortness Of Breath Past Medical History Vital Signs: Last Vital Signs Temp 98.4 F 11/20/17 06:12 Pulse 74 11/20/17 06:12 Resp 12 11/20/17 06:19 BP 167/89 H 11/20/17 06:12 Pulse Ox 99 11/20/17 06:19 - Medical History PMH: Asthma, CHF, HTN, Pneumonia Surgical History: Appendectomy (1982) - [facility] Procedures (07/15/17) BYPASS LEFT RADIAL ARTERY TO LOWER ARM VEIN, OPEN APPROACH (07/15/17) FLUOROSCOPY OF SUPERIOR VENA CAVA, GUIDANCE (07/15/17) INSERTION OF INFUSION DEV INTO SUP VENA CAVA, PERC APPROACH (07/15/17) INSERTION OF VAD INTO CHEST SUBCU/FASCIA, PERC APPROACH (07/15/17) TRANSFUSE NONAUT RED BLOOD CELLS IN PERIPH VEIN, PERC (07/15/17) Family History: States: Unknown Family Hx - Social History Hx Alcohol Use: No Hx Substance Use: No ED Course And Treatment O2 Sat by Pulse Oximetry: 99 Disposition - Disposition
[2017-11-20 06:39] LABS: BASO % 0.2 % (0.0-2.0); EOS % 0.3 % (0.0-4.0); HEMOGLOBIN 10.9 g/dL (12.0-18.0); LYMPH # 0.4 K/uL (1.0-4.3); LYMPH % 4.4 % (20.0-40.0); MEAN CELL VOLUME 85.6 fL (80.0-94.0); MEAN CORPUSCULAR HEMOGLOBIN 30.2 pg (27.0-31.0); MEAN CORPUSCULAR HGB CONC 35.3 g/dL (33.0-37.0); MEAN PLATELET VOLUME 8.7 fL (7.2-11.7); MONO # 0.7 K/uL (0.0-0.8); MONO % 7.8 % (0.0-10.0); NEUT # 7.8 K/uL (1.8-7.0); NEUT % 87.3 % (50.0-75.0); PLATELET COUNT 171 K/uL (130-400); RED CELL DISTRIBUTION WIDTH 15.8 % (11.5-14.5)
[2017-11-20 06:53] LABS: ALB/GLOB RATIO 1.3 (1.0-2.1); ALBUMIN 4.3 g/dL (3.5-5.0)
[2017-11-20 06:55] LABS: INR 1.1; PROTHROMBIN TIME 11.7 SECONDS (9.7-12.2)
[2017-11-20] MEDS ORDERED: cefTRIAXone IV 1 gm in Dextros 50 ML IVPB ONE ×2 (06:57→07:13)
[2017-11-20 07:05] LABS: TROPONIN I 0.2 ng/mL (0.00-0.120)
[2017-11-20] MEDS ORDERED: Azithromycin 500 MG in Sodium Chloride 0.9% 250 ML IVPB ONE (07:30)
--- NOTE | 2017-11-20 08:23 | RAD ---
Chest x-ray two views History: Shortness of breath. Comparison: 09/16/2017 Findings: Diffuse increased interstitial lung markings suggestive for venous congestion versus edema versus interstitial infiltrate. Right hilar prominence. Patchy increased markings at the left lung base. Right-sided venous catheter tip extending to the cavoatrial junction. Left-sided pacemaker. Tortuous ectatic aorta. Cardiomegaly. Degenerative changes in the spine and shoulders. Suggestion of calcific tendinopathy of the right proximal humerus. Impression: Diffuse increased interstitial lung markings suggestive for venous congestion versus edema versus interstitial infiltrate. Right hilar prominence. Patchy increased markings at the left lung base. Right-sided venous catheter tip extending to the cavoatrial junction. Left-sided pacemaker. Tortuous ectatic aorta. Cardiomegaly. Degenerative changes in the spine and shoulders. Suggestion of calcific tendinopathy of the right proximal humerus.
[2017-11-20 08:39] LABS: LYMPHOCYTE 3 % (20-40); MONOCYTE 6 % (0-10); NEUTROPHIL 91 % (50-75); PLATELET ESTIMATE NORMAL (NORMAL); TOTAL CELLS COUNTED 100
[2017-11-20 08:40] LABS: ANISOCYTOSIS SLIGHT; HYPOCHROMIC SLIGHT; POLYCHROMIC SLIGHT
[2017-11-20 09:17] VITALS: BP 156/88; PULSE 85; RESP 20
[2017-11-21 16:34] VITALS: O2SAT 99
== END 2017-11-20 09:22 | disposition left against medical advice (07) ==
LOC: C.ER 06:01
DX: J18.9 Pneumonia, unspecified organism (principal)
CPT/HCPCS: 71046; 80053; 83880; 84484; 85025; 85378; 85610; 85730; 87040; 96365; 96375; 99285; J0456; J0696; J1885; J2930

== ENCOUNTER 2017-11-24 18:34 | Inpatient (IN) | payer MEDICARE ==
[2017-11-24 18:35] VITALS: BMI 44.6
[2017-11-24] MEDS ORDERED: Albuterol-Ipratrop 3 mg / 0.5 (3 ml) UD ONE (18:54)
--- NOTE | 2017-11-24 19:10 | C.PDOC ---
History Of Present Illness 57 year old male who is a dialysis patient presents with a complaint of SOB. Patient seen here 4 days ago for cough and congestion, his work up at the time suggested pneumonia, his CXR showed vascular congestion vs infiltrate and was advised to stay for admission, however, patient signed out AMA. Patient was placed on zithromax and an albuterol inhaler, however, he continues feeling SOB. Patient also reports he has still been coughing and needs to sit up due his trouble breathing. Patient was last dialyzed 2 days ago and denies fever or other symptoms. Time Seen by Provider: 11/24/17 18:51 Chief Complaint (Nursing): Shortness Of Breath History Per: Patient History/Exam Limitations: no limitations Onset/Duration Of Symptoms: Days Current Symptoms Are (Timing): Still Present Exacerbating Factor(s): Laying Flat Current Respiratory Medications: Albuterol Associated Symptoms: Other (Cough, SOB). denies: Fever, Chest Pain Recent travel outside of the [place]: No Past Medical History Reviewed: Historical Data, Nursing Documentation, Vital Signs Vital Signs: Last Vital Signs Temp 98.5 F 11/24/17 18:40 Pulse 84 11/24/17 19:08 Resp 18 11/24/17 19:08 BP 175/98 H 11/24/17 19:08 Pulse Ox 97 11/24/17 19:20 - Medical History PMH: Asthma, CHF, HTN, Pneumonia, End Stage Renal Disease Surgical History: Appendectomy (1982) - [facility] Procedures (07/15/17) BYPASS LEFT RADIAL ARTERY TO LOWER ARM VEIN, OPEN APPROACH (07/15/17) FLUOROSCOPY OF SUPERIOR VENA CAVA, GUIDANCE (07/15/17) INSERTION OF INFUSION DEV INTO SUP VENA CAVA, PERC APPROACH (07/15/17) INSERTION OF VAD INTO CHEST SUBCU/FASCIA, PERC APPROACH (07/15/17) TRANSFUSE NONAUT RED BLOOD CELLS IN PERIPH VEIN, PERC (07/15/17) Family History: States: Unknown Family Hx - Social History Hx Alcohol Use: No Hx Substance Use: No - Immunization History Hx Tetanus Toxoid Vaccination: No Hx Influenza Vaccination: No Hx Pneumococcal Vaccination: Yes Review Of Systems Constitutional: Negative for: Fever, Chills Cardiovascular: Negative for: Chest Pain, Palpitations Respiratory: Positive for: Cough, Shortness of Breath. Negative for: Sputum Gastrointestinal: Negative for: Nausea, Vomiting Physical Exam - Physical Exam Appears: Other (Tachypneic) Skin: Normal Color, Warm, Dry Head: Atraumatic, Normacephalic Eye(s): bilateral: Normal Inspection Oral Mucosa: Moist Chest: Symmetrical, No Tenderness Cardiovascular: Rhythm Regular Respiratory: Decreased Breath Sounds (Bilateral), No Rales, No Rhonchi, No Wheezing Gastrointestinal/Abdominal: Soft, No Tenderness Neurological/Psych: Oriented x3, Normal Speech ED Course And Treatment - Laboratory Results Result Diagrams: 11/24/17 19:11 11/24/17 19:11 Lab Interpretation: Abnormal (Elevated WBC with left shift, BUN 78, Cr 4.8, K+ 3.8) ECG: Interpreted By Mi ECG Rhythm: Sinus Rhythm ECG Interpretation: No Acute Changes O2 Sat by Pulse Oximetry: 97 (Room air) Pulse Ox Interpretation: Normal - Radiology CXR: Interpreted by Me CXR Interpretation: Yes: Infiltrates (RLL) Progress Note: EKG, blood work, and CXR ordered. Reevaluation Time: 20:33 Reassessment Condition: Improved - Physician Consult Information Time Consulting Physician Contacted: 20:33 Physician Contacted: Cedric Melton Outcome Of Conversation: Patient to be admitted for IV antibiotics for CAP Disposition - Disposition Disposition: HOSPITALIZED Disposition Time: 20:34 Condition: STABLE - POA Present On Arrival: None - Clinical Impression Clinical Impression: Pneumonia, Renal failure - Scribe Statement The provider has reviewed the documentation as recorded by the Scribe Frederic Chacko All medical record entries made by the Scribe were at my direction and personally dictated by me. I have reviewed the chart and agree that the record accurately reflects my personal performance of the history, physical exam, medical decision making, and the department course for this patient. I have also personally directed, reviewed, and agree with the discharge instructions and disposition.
[2017-11-24 19:16] LABS: BASO % 0.1 % (0.0-2.0); EOS # 0.1 K/uL (0.0-0.7); HEMOGLOBIN 10.7 g/dL (12.0-18.0); LYMPH # 0.9 K/uL (1.0-4.3); LYMPH % 7.5 % (20.0-40.0); MEAN CELL VOLUME 87.5 fL (80.0-94.0); MEAN CORPUSCULAR HEMOGLOBIN 29.6 pg (27.0-31.0); MEAN CORPUSCULAR HGB CONC 33.9 g/dL (33.0-37.0); MEAN PLATELET VOLUME 8.5 fL (7.2-11.7); MONO % 8.1 % (0.0-10.0); NEUT # 9.8 K/uL (1.8-7.0); NEUT % 83.3 % (50.0-75.0); PLATELET COUNT 199 K/uL (130-400); RBC 3.62 Mil/uL (4.40-5.90); RED CELL DISTRIBUTION WIDTH 16.3 % (11.5-14.5); WHITE BLOOD COUNT 11.8 K/uL (4.8-10.8)
[2017-11-24 19:33] LABS: ALB/GLOB RATIO 1.2 (1.0-2.1); ALBUMIN 3.8 g/dL (3.5-5.0); CALCIUM 7.6 mg/dl (8.6-10.4)
[2017-11-24 20:07] LABS: LYMPHOCYTE 9 % (20-40); MONOCYTE 4 % (0-10); NEUTROPHIL 87 % (50-75); PLATELET ESTIMATE NORMAL (NORMAL); TOTAL CELLS COUNTED 100
[2017-11-24 20:08] LABS: ANISOCYTOSIS SLIGHT; HYPOCHROMIC SLIGHT; POLYCHROMIC SLIGHT
[2017-11-24] MEDS ORDERED: Moxifloxacin IV 400mg/250ml NS 400 MG/250 ML BAG IV ONE (20:28)
[2017-11-24] MEDS ORDERED: Albuterol 0.083% Inhal Sol (2.5 mg/3 mL) UD INH ONE (21:11)
[2017-11-24] MEDS ORDERED: Albuterol 0.083% Inhal Sol (2.5 mg/3 mL) UD ONE (21:14)
[2017-11-24] MEDS ORDERED: Moxifloxacin IV 400mg/250ml NS 400 MG/250 ML BAG IVPB SCH (23:45)
--- NOTE | 2017-11-25 00:13 | CP.PCM.HP ---
<Silvestre Askew - Last Filed: 11/25/17 01:17> History of Present Illness - History of Present Illness History of Present Illness: This is a 57 yo male with past medical hx of asthma, HTN, ESRD getting HD MF, diabetes, pacemaker presenting with chief complaint of shortness of breath and cough. Pt states he has been feeling more short of breath for the past 2 weeks, but he is chronically short of breath "all his life." He says that he was feeling sick and under the weather along with a sore throat about 2 weeks ago. He went to see his motivational speaker Dr. Brown at this time. Dr. Brown gave him an antibiotic and unknown other medication. He took these meds but was feeling worse so he came to [facility] ER this past wednesday. He signed out against medical advice and was given a tx of prednisone and azithromycin. He began taking these meds but was not getting any better so he came into ER today. He denies chest pain and palpitations. He reports cough with brown phlegm. He has a maturing AV fistula left arm. In the meantime, he is getting dialysis through a temporary catheter. His last dialysis appt was this past wednesday and they took off 3.5 L. He says he does not miss dialysis. He reports recent stress test but cannot recall results. He reports recent cath with Dr. Brown in June 2017. He still produces urine. He denies any urinary sx. He denies sick contacts or recent travel. He denies fevers and chills. Pt has never had a colonoscopy. PMH: ESRD on HD wednesday and wednesday, HTN, IGT/DM, pacemaker Echo shows moderately reduced LV function, global hypokinesis of left ventricle , LVH PSH: left av fistula, pacemaker, temporary dialysis catheter, appendectomy Allergies: NKDA FH: Mother- - [place] Father- living- no medical issues Home meds: prednisone 50 mg po daily, hydralazine 100 mg po q 8 hrs, sevelamer 800 mg po tid, singulair 10 mg po hs, tradjenta 5 mg po daily, coreg 12.5 mg po daily, pulmicort .5 mg inh, azithromycin 250 mg po daily, lipitor 40 mg po daily , albuterol 2 puff inh q 6hrs prn PMD: No official PMD but uses Dr. Harmony Brown motivational speaker as a substitute Specialists: Dr. Brown- Cardiology -Nephrology- [facility] Urology- [facility] Social hx: Denies smoking. Former alcohol drinker. Denies drug use. Lives with nephew. Born in [place]. Fully mobile. Does not work. Has been 11-12 yrs since last worked. Insurance: [employer] medicare Code status: full code Present on Admission - Present on Admission Any Indicators Present on Admission: No History of DVT/PE: No History of Uncontrolled Diabetes: No Urinary Catheter: No Decubitus Ulcer Present: No Review of Systems - Constitutional Constitutional: absent: Chills, Fever - EENT Eyes: absent: Blurred Vision, Change in Vision Nose/Mouth/Throat: Sore Throat - Cardiovascular Cardiovascular: Dyspnea. absent: Chest Pain, Chest Pain at Rest, Diaphoresis - Respiratory Respiratory: Cough, Dyspnea, Dyspnea on Exertion. absent: Chest Congestion - Gastrointestinal Gastrointestinal: absent: Abdominal Pain, Diarrhea, Vomiting - Genitourinary Genitourinary: absent: Difficulty Urinating, Dysuria - Musculoskeletal Musculoskeletal: absent: Neck Pain, Numbness - Integumentary Integumentary: absent: Bleeding Lesions, Changing Lesions - Neurological Neurological: absent: Dizziness, Vertigo, Weakness - Psychiatric Psychiatric: absent: Auditory Hallucinations, Visual Hallucinations - Endocrine Endocrine: absent: Heat Intolorance, Palpitations - Hematologic/Lymphatic Hematologic: absent: Easy Bleeding, Easy Bruising Past Patient History - Infectious Disease Hx of Infectious Diseases: None - Tetanus Immunizations Tetanus Immunization: Unknown - Past Medical History & Family History Past Medical History?: Yes Pertinent Family History: [place] in family - Past Social History Smoking Status: Never Smoked Chewing Tobacco Use: No Cigar Use: No Alcohol: None Drugs: Denies Home Situation {Lives}: With Family Domestic Violence: Negative - CARDIAC Hx Congestive Heart Failure: Yes Hx Hypertension: Yes - PULMONARY Hx Asthma: Yes Hx Pneumonia: Yes - RENAL Hx Dialysis: Yes Type of Dialysis Access: Right chest wall; Left lower arm AV fistula Date of Last Dialysis Treatment: 11/22/17 - ENDOCRINE/METABOLIC Hx Diabetes Mellitus Type 2: Yes - MUSCULOSKELETAL/RHEUMATOLOGICAL Hx Falls: No Hx Herniated Disk: Yes - PSYCHIATRIC Hx Substance Use: No - SURGICAL HISTORY Hx Appendectomy: Yes (1982) - ANESTHESIA Hx Anesthesia: Yes Hx Anesthesia Reactions: No Hx Malignant Hyperthermia: No Meds Allergies/Adverse Reactions: Allergies Allergy/AdvReac Type Severity Reaction Status Date / Time No Known Allergies Allergy Verified 11/24/17 18:43 Physical Exam - Constitutional Appears: Non-toxic, No Acute Distress, Chronically Ill - Head Exam Head Exam: ATRAUMATIC, NORMAL INSPECTION, NORMOCEPHALIC - Eye Exam Eye Exam: EOMI - ENT Exam ENT Exam: Mucous Membranes Moist - Neck Exam Neck exam: Positive for: Full Rom, Normal Inspection - Respiratory Exam Respiratory Exam: Rales. absent: Respiratory Distress - Cardiovascular Exam Cardiovascular Exam: REGULAR RHYTHM, +S1, +S2 Additional comments: no JVD; no S3 - GI/Abdominal Exam GI & Abdominal Exam: Distended. absent: Guarding, Tenderness - Extremities Exam Extremities exam: Positive for: full ROM, pedal edema - Back Exam Back exam: NORMAL INSPECTION - Neurological Exam Neurological exam: Alert, CN II-XII Intact, Oriented x3 - Psychiatric Exam Psychiatric exam: Normal Affect, Normal Mood - Skin Skin Exam: Dry, Intact, Normal Color, Warm Results - Vital Signs Recent Vital Signs: Last Vital Signs Temp 99.8 F H 11/24/17 22:16 Pulse 86 11/24/17 22:16 Resp 18 11/24/17 22:16 BP 174/88 H 11/24/17 22:16 Pulse Ox 97 11/24/17 22:16 - Labs Result Diagrams: 11/24/17 19:11 11/24/17 19:11 Labs: Laboratory Results - last 24 hr 11/24/17 11/24/17 19:11 19:11 WBC 11.8 H RBC 3.62 L Hgb 10.7 L Hct 31.7 L MCV 87.5 MCH 29.6 MCHC 33.9 RDW 16.3 H Plt Count 199 MPV 8.5 Neut % (Auto) 83.3 H Lymph % (Auto) 7.5 L Runnels % (Auto) 8.1 Eos % (Auto) 1.0 Baso % (Auto) 0.1 Neut # (Auto) 9.8 H Lymph # (Auto) 0.9 L Runnels # (Auto) 1.0 H Eos # (Auto) 0.1 Baso # (Auto) 0.0 Neutrophils % (Manual) 87 H Lymphocytes % (Manual) 9 L Monocytes % (Manual) 4 Platelet Estimate Normal Polychromasia Slight Hypochromasia (manual) Slight Anisocytosis (manual) Slight Sodium 140 Potassium 3.8 Chloride 99 Carbon Dioxide 29 Anion Gap 16 BUN 78 H Creatinine 4.8 H Est GFR ( Amer) 15 Est GFR (Non-Af Amer) 13 Random Glucose 164 H Calcium 7.6 L Total Bilirubin 0.8 AST 26 ALT 41 Alkaline Phosphatase 68 Total Protein 7.0 Albumin 3.8 Globulin 3.2 Albumin/Globulin Ratio 1.2 Assessment & Plan - Assessment and Plan (Free Text) Assessment: This is a 57 yo male with past medical hx of asthma, HTN, pacemaker , heart disease and heart failure with reduced ejection fraction, presenting with shortness of breath and cough x 2 weeks. 1. Shortness of breath -likely secondary to community acquired pneumonia -blood cultures x 2 -sputum cultures -D dimer will likely be elevated -V/Q scan pending -admission to telemetry -cardio consult. Dr. Brown. recs appreciated. -serial troponins -serial ekgs -initial ekg shows normal sinus rhythm 84 -CXR shows infiltrate right lower lobe. -recent echo shows 40-45 percent ef, global hypokinesis of left ventricle, LVH -will start avelox IV 400 mg daily -ID consult. recs appreciated. Dr. Rosales. failed outpatient tx. 2. Anemia -normocytic -iron, tibc, ferritin pending -LDH and haptoglobin -stool occult blood -reticulocyte count -likely anemia of chronic disease 3. hx of ESRD -on HD -nephrology consult. recs appreciated. -continue sevlamer 800 mg PO TID+ 4. hx of HTN -continue coreg 12.5 mg po bid -continue hydralazine 100 mg po q 8 hrs 5. Hx of asthma -continue singulair 10 mg po hs -duonebs Rq6 hrs zulema 6. hx of DM/IGT -HGB a 1c -most recent a1C unknown -regular insulin low dose sliding scale sc -hypoglycemia protocol -continue crestor 20 mg po hs 6. GI/DVT ppx -protonix 40 mg IV daily -SCDs -Diet: renal dialysis diet Code status: full code discussed with Dr. Melton <Cedric Melton - Last Filed: 11/25/17 19:18> Results - Vital Signs Recent Vital Signs: Last Vital Signs Temp 98.4 F 11/25/17 15:00 Pulse 89 11/25/17 15:00 Resp 20 11/25/17 15:00 BP 165/85 H 11/25/17 17:19 Pulse Ox 95 11/25/17 15:00 - Labs Result Diagrams: 11/25/17 06:22 11/25/17 06:22 Labs: Laboratory Results - last 24 hr 11/24/17 11/24/17 11/25/17 19:11 19:11 06:22 WBC 11.8 H 11.7 H RBC 3.62 L 3.43 L Hgb 10.7 L 10.3 L Hct 31.7 L 30.0 L MCV 87.5 87.4 MCH 29.6 29.9 MCHC 33.9 34.2 RDW 16.3 H 15.6 H Plt Count 199 157 MPV 8.5 8.6 Neut % (Auto) 83.3 H 87.2 H Lymph % (Auto) 7.5 L 4.9 L Runnels % (Auto) 8.1 6.8 Eos % (Auto) 1.0 1.0 Baso % (Auto) 0.1 0.1 Neut # (Auto) 9.8 H 10.2 H Lymph # (Auto) 0.9 L 0.6 L Runnels # (Auto) 1.0 H 0.8 Eos # (Auto) 0.1 0.1 Baso # (Auto) 0.0 0.0 Neutrophils % (Manual) 87 H 93 H Lymphocytes % (Manual) 9 L 3 L Monocytes % (Manual) 4 2 Eosinophils % (Manual) 2 Platelet Estimate Normal Normal Polychromasia Slight Slight Hypochromasia (manual) Slight Slight Anisocytosis (manual) Slight Slight Sodium 140 Potassium 3.8 Chloride 99 Carbon Dioxide 29 Anion Gap 16 BUN 78 H Creatinine 4.8 H Est GFR ( Amer) 15 Est GFR (Non-Af Amer) 13 POC Glucose (mg/dL) Random Glucose 164 H Hemoglobin A1c Calcium 7.6 L Total Bilirubin 0.8 AST 26 ALT 41 Alkaline Phosphatase 68 Total Creatine Kinase CK-MB (Mass) Troponin I NT-Pro-B Natriuret Pep Total Protein 7.0 Albumin 3.8 Globulin 3.2 Albumin/Globulin Ratio 1.2 Triglycerides Cholesterol LDL Cholesterol Direct HDL Cholesterol Free T4 TSH 3rd Generation Influenza Typ A,B (EIA) Mycoplasma pneumon IgM 11/25/17 11/25/17 11/25/17 06:22 06:22 06:22 WBC RBC Hgb Hct MCV MCH MCHC RDW Plt Count MPV Neut % (Auto) Lymph % (Auto) Runnels % (Auto) Eos % (Auto) Baso % (Auto) Neut # (Auto) Lymph # (Auto) Runnels # (Auto) Eos # (Auto) Baso # (Auto) Neutrophils % (Manual) Lymphocytes % (Manual) Monocytes % (Manual) Eosinophils % (Manual) Platelet Estimate Polychromasia Hypochromasia (manual) Anisocytosis (manual) Sodium 139 Potassium 3.8 Chloride 100 Carbon Dioxide 29 Anion Gap 14 BUN 81 H Creatinine 4.8 H Est GFR ( Amer) 15 Est GFR (Non-Af Amer) 13 POC Glucose (mg/dL) Random Glucose 173 H Hemoglobin A1c 6.6 H Calcium 8.0 L Total Bilirubin 0.9 AST 24 ALT 39 Alkaline Phosphatase 63 Total Creatine Kinase CK-MB (Mass) Troponin I NT-Pro-B Natriuret Pep Total Protein 6.1 L Albumin 3.2 L Globulin 2.9 Albumin/Globulin Ratio 1.1 Triglycerides 424 H Cholesterol 187 LDL Cholesterol Direct 64 HDL Cholesterol 28 L Free T4 0.97 TSH 3rd Generation 2.37 Influenza Typ A,B (EIA) Mycoplasma pneumon IgM 11/25/17 11/25/17 11/25/17 06:56 11:45 11:53 WBC RBC Hgb Hct MCV MCH MCHC RDW Plt Count MPV Neut % (Auto) Lymph % (Auto) Runnels % (Auto) Eos % (Auto) Baso % (Auto) Neut # (Auto) Lymph # (Auto) Runnels # (Auto) Eos # (Auto) Baso # (Auto) Neutrophils % (Manual) Lymphocytes % (Manual) Monocytes % (Manual) Eosinophils % (Manual) Platelet Estimate Polychromasia Hypochromasia (manual) Anisocytosis (manual) Sodium Potassium Chloride Carbon Dioxide Anion Gap BUN Creatinine Est GFR ( Amer) Est GFR (Non-Af Amer) POC Glucose (mg/dL) Random Glucose Hemoglobin A1c Calcium Total Bilirubin AST ALT Alkaline Phosphatase Total Creatine Kinase 89 CK-MB (Mass) 1.36 Troponin I 0.2470 H* NT-Pro-B Natriuret Pep 5990 H Total Protein Albumin Globulin Albumin/Globulin Ratio Triglycerides Cholesterol LDL Cholesterol Direct HDL Cholesterol Free T4 TSH 3rd Generation Influenza Typ A,B (EIA) Negative for flu a/b Mycoplasma pneumon IgM Negative 11/25/17 11/25/17 11/25/17 12:14 13:54 16:09 WBC RBC Hgb Hct MCV MCH MCHC RDW Plt Count MPV Neut % (Auto) Lymph % (Auto) Runnels % (Auto) Eos % (Auto) Baso % (Auto) Neut # (Auto) Lymph # (Auto) Runnels # (Auto) Eos # (Auto) Baso # (Auto) Neutrophils % (Manual) Lymphocytes % (Manual) Monocytes % (Manual) Eosinophils % (Manual) Platelet Estimate Polychromasia Hypochromasia (manual) Anisocytosis (manual) Sodium Potassium Chloride Carbon Dioxide Anion Gap BUN Creatinine Est GFR ( Amer) Est GFR (Non-Af Amer) POC Glucose (mg/dL) 156 H 178 H Random Glucose Hemoglobin A1c Calcium Total Bilirubin AST ALT Alkaline Phosphatase Total Creatine Kinase 89 CK-MB (Mass) 1.24 Troponin I 0.2470 H* NT-Pro-B Natriuret Pep Total Protein Albumin Globulin Albumin/Globulin Ratio Triglycerides Cholesterol LDL Cholesterol Direct HDL Cholesterol Free T4 TSH 3rd Generation Influenza Typ A,B (EIA) Mycoplasma pneumon IgM Assessment & Plan - Date & Time Date: 11/25/17 (I have seen and examined the patient. I agree with the findings and plan of care as documented by Dr. Askew. Patient with pneumonia. Failure outpatient therapy. Avelox for now. Check sputum and blood culture. Also with ESRD on dialysis. Consult to nephro. Monitor for acute changes.) Time: 19:14 Attending/Attestation - Attestation I have personally seen and examined this patient.: Yes I have fully participated in the care of the patient.: Yes I have reviewed all pertinent clinical information: Yes
[2017-11-25] MEDS ORDERED: Glucagon Recombinant 1 mg Inj IM PRN (00:19)
[2017-11-25] MEDS ORDERED: Dextrose 50% SYRINGE Inj (50 ml) IV PRN (00:19)
[2017-11-25] MEDS: Albuterol-Ipratrop 3 mg / 0.5 (3 ml) UD INH SCH ×6 (02:24→23:35)
[2017-11-25 06:33] LABS: BASO % 0.1 % (0.0-2.0); EOS # 0.1 K/uL (0.0-0.7); HEMOGLOBIN 10.3 g/dL (12.0-18.0); LYMPH # 0.6 K/uL (1.0-4.3); LYMPH % 4.9 % (20.0-40.0); MEAN CELL VOLUME 87.4 fL (80.0-94.0); MEAN CORPUSCULAR HEMOGLOBIN 29.9 pg (27.0-31.0); MEAN CORPUSCULAR HGB CONC 34.2 g/dL (33.0-37.0); MEAN PLATELET VOLUME 8.6 fL (7.2-11.7); MONO # 0.8 K/uL (0.0-0.8); MONO % 6.8 % (0.0-10.0); NEUT # 10.2 K/uL (1.8-7.0); NEUT % 87.2 % (50.0-75.0); PLATELET COUNT 157 K/uL (130-400); RBC 3.43 Mil/uL (4.40-5.90); RED CELL DISTRIBUTION WIDTH 15.6 % (11.5-14.5); WHITE BLOOD COUNT 11.7 K/uL (4.8-10.8)
[2017-11-25 07:42] LABS: ALB/GLOB RATIO 1.1 (1.0-2.1); ALBUMIN 3.2 g/dL (3.5-5.0)
[2017-11-25 08:41] LABS: EOSINOPHIL 2 % (0-4); LYMPHOCYTE 3 % (20-40); MONOCYTE 2 % (0-10); NEUTROPHIL 93 % (50-75); TOTAL CELLS COUNTED 100
[2017-11-25 08:42] LABS: ANISOCYTOSIS SLIGHT; HYPOCHROMIC SLIGHT; PLATELET ESTIMATE NORMAL (NORMAL); POLYCHROMIC SLIGHT
[2017-11-25] MEDS: (Novolin R) Insulin Human Regular 100 units/ml vial SC SCH ×4 (09:06→22:04)
--- NOTE | 2017-11-25 09:29 | RAD ---
HISTORY: Pneumonia COMPARISON: Chest x-ray 11/20/2017 TECHNIQUE: Chest one view . FINDINGS: LUNGS: Diffuse bilateral airspace opacities, primarily of the right lung. Moderate pulmonary vascular congestion. PLEURA: No pleural effusion is identified. CARDIOVASCULAR: Cardiomegaly. Stable right-sided dialysis catheter with distal tip overlying the region of the right atrium. There is a single lead left-sided pacemaker/AICD with lead tip overlying the region of the right ventricle. OSSEOUS STRUCTURES: Visualized osseous structures are unremarkable. VISUALIZED UPPER ABDOMEN: Unremarkable. OTHER FINDINGS: None. IMPRESSION: Moderate pulmonary vascular congestion. Diffuse bilateral airspace opacities, greater on the right lung. Findings favor pulmonary edema however infectious/inflammatory process cannot be excluded. Cardiomegaly
[2017-11-25] MEDS ORDERED: Paricalcitol 2 mcg/ml Inj IV ONE ×2 (10:11→12:00)
[2017-11-25] MEDS ORDERED: Azithromycin 500 MG in Sodium Chloride 0.9% 250 ML IVPB ONE (10:30)
[2017-11-25] MEDS: Pantoprazole 40 mg EC Tab PO SCH (10:39)
--- NOTE | 2017-11-25 10:57 | CP.PCM.CON ---
History of Present Illness - History of Present Illness History of Present Illness: pt is seen and examined,full consult is dictated #[id number] 1. esrd 2. htn 3. dm 4. left renal mass 5. cardiomyopathy 6. s/p AICD 7. chf, r/o penumonia 8. copd/asthma will schedule for hd today and wednesday, pt may benefit from hd 3 x a week instead of 2 times a week c/w iv abx check blood c/s, urine c/s restrict fluids to 1.5 lit/day Past Patient History - Infectious Disease Hx of Infectious Diseases: None - Tetanus Immunizations Tetanus Immunization: Unknown - Past Medical History & Family History Past Medical History?: Yes - Past Social History Smoking Status: Never Smoked Chewing Tobacco Use: No Cigar Use: No Alcohol: None Drugs: Denies Home Situation {Lives}: With Family Domestic Violence: Negative - CARDIAC Hx Congestive Heart Failure: Yes Hx Hypertension: Yes - PULMONARY Hx Asthma: Yes Hx Pneumonia: Yes - NEUROLOGICAL Hx Neurological Disorder: No - HEENT Hx HEENT Problems: No - RENAL Hx Dialysis: Yes Type of Dialysis Access: Right chest wall; Left lower arm AV fistula Date of Last Dialysis Treatment: 11/22/17 - ENDOCRINE/METABOLIC Hx Diabetes Mellitus Type 2: Yes - HEMATOLOGICAL/ONCOLOGICAL Hx Blood Disorders: No - INTEGUMENTARY Hx Dermatological Problems: No - MUSCULOSKELETAL/RHEUMATOLOGICAL Hx Falls: No Hx Herniated Disk: Yes - GASTROINTESTINAL Hx Gastrointestinal Disorders: No - GENITOURINARY/GYNECOLOGICAL Hx Genitourinary Disorders: No - PSYCHIATRIC Hx Substance Use: No - SURGICAL HISTORY Hx Appendectomy: Yes (1982) - ANESTHESIA Hx Anesthesia: Yes Hx Anesthesia Reactions: No Hx Malignant Hyperthermia: No Meds Allergies/Adverse Reactions: Allergies Allergy/AdvReac Type Severity Reaction Status Date / Time No Known Allergies Allergy Verified 11/24/17 18:43 - Medications Medications: Current Medications Albuterol/Ipratropium (Duoneb 3 Mg/0.5 Mg (3 Ml) Ud) 3 ml INH RQ4 BETHANY Aspirin (Aspirin Chewable) 81 mg PO DAILY BETHANY Carvedilol (Coreg) 12.5 mg PO BID BETHANY Last Admin: 11/25/17 10:41 Dose: Not Given Dextrose (Dextrose 50% Inj) 0 ml IV STAT PRN; Protocol PRN Reason: Hypoglycemia Protocol Dextrose (Glutose 15) 0 gm PO ONCE PRN; Protocol PRN Reason: Hypoglycemia Protocol Epoetin Ant (Procrit) 10,000 unit IV ONCE ONE Stop: 11/25/17 10:11 Furosemide (Lasix) 40 mg IVP BID BETHANY Glucagon (Glucagen Diagnostic Kit) 0 mg IM STAT PRN; Protocol PRN Reason: Hypoglycemia Protocol Guaifenesin (Mucinex La) 600 mg PO BID [facility] Heparin Sodium (Porcine) (Heparin) 5,000 units SC Q12 BETHANY Last Admin: 11/25/17 10:46 Dose: Not Given Hydralazine HCl (Apresoline) 100 mg PO Q8 [facility] Last Admin: 11/25/17 06:40 Dose: 100 mg Dextrose (Dextrose 5% In Water 1000 Ml) 1,000 mls @ 0 mls/hr IV .Q0M PRN; Protocol; Per Protocol PRN Reason: Hypoglycemia Protocol Azithromycin 500 mg/ Sodium (Chloride) 250 mls @ 250 mls/hr IVPB ONCE ONE PRN Reason: Protocol Stop: 11/25/17 11:29 Last Admin: 11/25/17 10:48 Dose: 250 mls/hr Ceftriaxone Sodium 1 gm/ (Sodium Chloride) 100 mls @ 100 mls/hr IVPB Q24H BETHANY PRN Reason: Protocol Insulin Human Regular (Novolin R) 0 unit SC ACHS BETHANY PRN Reason: Protocol Last Admin: 11/25/17 09:06 Dose: Not Given Montelukast Sodium (Singulair) 10 mg PO HS BETHANY Pantoprazole Sodium (Protonix Ec Tab) 40 mg PO DAILY [facility] Last Admin: 11/25/17 10:39 Dose: 40 mg Paricalcitol (Zemplar) 2 mcg IV ONCE ONE Stop: 11/25/17 10:12 Rosuvastatin Calcium (Crestor) 20 mg PO HS BETHANY Sevelamer Carbonate (Renvela) 800 mg PO TIDCC [facility] Last Admin: 11/25/17 10:39 Dose: 800 mg Results - Vital Signs Recent Vital Signs: Last Vital Signs Temp 100.3 F H 11/25/17 08:36 Pulse 88 11/25/17 08:45 Resp 20 11/25/17 08:36 BP 163/80 H 11/25/17 10:36 Pulse Ox 96 11/25/17 08:36 - Labs Result Diagrams: 11/25/17 06:22 11/25/17 06:22 Labs: Laboratory Results - last 24 hr 11/24/17 11/24/17 11/25/17 19:11 19:11 06:22 WBC 11.8 H 11.7 H RBC 3.62 L 3.43 L Hgb 10.7 L 10.3 L Hct 31.7 L 30.0 L MCV 87.5 87.4 MCH 29.6 29.9 MCHC 33.9 34.2 RDW 16.3 H 15.6 H Plt Count 199 157 MPV 8.5 8.6 Neut % (Auto) 83.3 H 87.2 H Lymph % (Auto) 7.5 L 4.9 L Titus % (Auto) 8.1 6.8 Eos % (Auto) 1.0 1.0 Baso % (Auto) 0.1 0.1 Neut # (Auto) 9.8 H 10.2 H Lymph # (Auto) 0.9 L 0.6 L Titus # (Auto) 1.0 H 0.8 Eos # (Auto) 0.1 0.1 Baso # (Auto) 0.0 0.0 Neutrophils % (Manual) 87 H 93 H Lymphocytes % (Manual) 9 L 3 L Monocytes % (Manual) 4 2 Eosinophils % (Manual) 2 Platelet Estimate Normal Normal Polychromasia Slight Slight Hypochromasia (manual) Slight Slight Anisocytosis (manual) Slight Slight Sodium 140 Potassium 3.8 Chloride 99 Carbon Dioxide 29 Anion Gap 16 BUN 78 H Creatinine 4.8 H Est GFR ( Amer) 15 Est GFR (Non-Af Amer) 13 Random Glucose 164 H Hemoglobin A1c Calcium 7.6 L Total Bilirubin 0.8 AST 26 ALT 41 Alkaline Phosphatase 68 Total Protein 7.0 Albumin 3.8 Globulin 3.2 Albumin/Globulin Ratio 1.2 Free T4 Influenza Typ A,B (EIA) 11/25/17 11/25/17 11/25/17 06:22 06:22 06:22 WBC RBC Hgb Hct MCV MCH MCHC RDW Plt Count MPV Neut % (Auto) Lymph % (Auto) Titus % (Auto) Eos % (Auto) Baso % (Auto) Neut # (Auto) Lymph # (Auto) Titus # (Auto) Eos # (Auto) Baso # (Auto) Neutrophils % (Manual) Lymphocytes % (Manual) Monocytes % (Manual) Eosinophils % (Manual) Platelet Estimate Polychromasia Hypochromasia (manual) Anisocytosis (manual) Sodium 139 Potassium 3.8 Chloride 100 Carbon Dioxide 29 Anion Gap 14 BUN 81 H Creatinine 4.8 H Est GFR ( Amer) 15 Est GFR (Non-Af Amer) 13 Random Glucose 173 H Hemoglobin A1c 6.6 H Calcium 8.0 L Total Bilirubin 0.9 AST 24 ALT 39 Alkaline Phosphatase 63 Total Protein 6.1 L Albumin 3.2 L Globulin 2.9 Albumin/Globulin Ratio 1.1 Free T4 0.97 Influenza Typ A,B (EIA) 11/25/17 06:56 WBC RBC Hgb Hct MCV MCH MCHC RDW Plt Count MPV Neut % (Auto) Lymph % (Auto) Titus % (Auto) Eos % (Auto) Baso % (Auto) Neut # (Auto) Lymph # (Auto) Titus # (Auto) Eos # (Auto) Baso # (Auto) Neutrophils % (Manual) Lymphocytes % (Manual) Monocytes % (Manual) Eosinophils % (Manual) Platelet Estimate Polychromasia Hypochromasia (manual) Anisocytosis (manual) Sodium Potassium Chloride Carbon Dioxide Anion Gap BUN Creatinine Est GFR ( Amer) Est GFR (Non-Af Amer) Random Glucose Hemoglobin A1c Calcium Total Bilirubin AST ALT Alkaline Phosphatase Total Protein Albumin Globulin Albumin/Globulin Ratio Free T4 Influenza Typ A,B (EIA) Negative for flu a/b
--- NOTE | 2017-11-25 11:37 | NM ---
COMPARISON: Chest radiograph 11/24/2017 TECHNIQUE: 9.1 mCi Xe-133 Gas. 4.1 mCI technetium 99-m MAA administered intravenously. FINDINGS: VENTILATION COMPONENT: Mildly diminished ventilation at the posterior right apex and lateral right base somewhat. Anterior apical uptake is also diminished at the right. PERFUSION COMPONENT: Diffuse subsegmental perfusion defect seen at the right apex matched on the ventilation study with no additional significant perfusion defects bilaterally. IMPRESSION: Lowprobability ventilation perfusion scan for pulmonary embolism.
[2017-11-25] MEDS ORDERED: Epoetin Alfa 10,000 unit/ml Dialysis IV ONE (12:00)
[2017-11-25 12:31] LABS: CK-MB 1.36 ng/mL (0.0-3.38); TROPONIN I 0.247 ng/mL (0.00-0.120)
[2017-11-25] MEDS ORDERED: MethylPREDNISolone 40 mg Vial IVP SCH (13:00)
[2017-11-25] MEDS: MethylPREDNISolone 40 mg Vial IVP SCH ×2 (13:00→21:59)
--- NOTE | 2017-11-25 13:01 | CP.PCM.PN ---
<Natasha Cummins - Last Filed: 11/25/17 13:05> Subjective - Date & Time of Evaluation Date of Evaluation: 11/25/17 Time of Evaluation: 13:01 - Subjective Subjective: Progress Note Patient seen and examined at bedside. Patient states he had problem sleeping overnight. Patient states he has obstructive sleep apnea and was placed on CPAP in the morning after this interview. Patient denies fever, chills, current chest pain. Patient states he has been feeling short of breath for two weeks, left AMA wednesday and was given prednisone and azithromycin. Patient came in because he started coughing brown sputum. Patient states he still has productive cough at this time. Patient had CXR which showed fluid overload. Patient was brought to dialysis in attempts to remove fluid. Objective - Vital Signs/Intake and Output Vital Signs (last 24 hours): Temp Pulse Resp BP Pulse Ox 98.4 F 83 20 143/93 H 97 11/25/17 11:15 11/25/17 12:29 11/25/17 12:29 11/25/17 12:29 11/25/17 11:15 - Medications Medications: Current Medications Albuterol/Ipratropium (Duoneb 3 Mg/0.5 Mg (3 Ml) Ud) 3 ml INH RQ4 [facility] Aspirin (Aspirin Chewable) 81 mg PO DAILY [facility] Carvedilol (Coreg) 12.5 mg PO BID [facility] Last Admin: 11/25/17 10:41 Dose: Not Given Dextrose (Dextrose 50% Inj) 0 ml IV STAT PRN; Protocol PRN Reason: Hypoglycemia Protocol Dextrose (Glutose 15) 0 gm PO ONCE PRN; Protocol PRN Reason: Hypoglycemia Protocol Furosemide (Lasix) 40 mg IVP BID [facility] Glucagon (Glucagen Diagnostic Kit) 0 mg IM STAT PRN; Protocol PRN Reason: Hypoglycemia Protocol Guaifenesin (Mucinex La) 600 mg PO Q12H [facility] Heparin Sodium (Porcine) (Heparin) 5,000 units SC Q12 [facility] Last Admin: 11/25/17 10:46 Dose: Not Given Hydralazine HCl (Apresoline) 100 mg PO Q8 [facility] Last Admin: 11/25/17 06:40 Dose: 100 mg Dextrose (Dextrose 5% In Water 1000 Ml) 1,000 mls @ 0 mls/hr IV .Q0M PRN; Protocol; Per Protocol PRN Reason: Hypoglycemia Protocol Ceftriaxone Sodium 1 gm/ (Sodium Chloride) 100 mls @ 100 mls/hr IVPB Q24H [facility] PRN Reason: Protocol Insulin Human Regular (Novolin R) 0 unit SC ACHS [facility] PRN Reason: Protocol Last Admin: 11/25/17 09:06 Dose: Not Given Methylprednisolone (Solu-Medrol) 40 mg IVP Q8H [facility] Montelukast Sodium (Singulair) 10 mg PO HS [facility] Pantoprazole Sodium (Protonix Ec Tab) 40 mg PO DAILY [facility] Last Admin: 11/25/17 10:39 Dose: 40 mg Rosuvastatin Calcium (Crestor) 10 mg PO HS [facility] Sevelamer Carbonate (Renvela) 800 mg PO TIDCC [facility] Last Admin: 11/25/17 10:39 Dose: 800 mg - Labs Labs: 11/25/17 06:22 11/25/17 06:22 - Psychiatric Exam Additional comments: - Constitutional Appears: Non-toxic, No Acute Distress, Chronically Ill - Head Exam Head Exam: ATRAUMATIC, NORMAL INSPECTION, NORMOCEPHALIC - Eye Exam Eye Exam: EOMI - ENT Exam ENT Exam: Mucous Membranes Moist - Neck Exam Neck exam: Positive for: Full Rom, Normal Inspection - Respiratory Exam Respiratory Exam: Rales. absent: Respiratory Distress - Cardiovascular Exam Cardiovascular Exam: REGULAR RHYTHM, +S1, +S2 Additional comments: no JVD; no S3 - GI/Abdominal Exam GI & Abdominal Exam: Distended. absent: Guarding, Tenderness - Extremities Exam Extremities exam: Positive for: full ROM, pedal edema - Back Exam Back exam: NORMAL INSPECTION - Neurological Exam Neurological exam: Alert, CN II-XII Intact, Oriented x3 - Psychiatric Exam Psychiatric exam: Normal Affect, Normal Mood - Skin Skin Exam: Dry, Intact, Normal Color, Warm - Additional Findings Additional findings: - Constitutional Appears: Non-toxic, No Acute Distress, Chronically Ill - Head Exam Head Exam: ATRAUMATIC, NORMAL INSPECTION, NORMOCEPHALIC - Eye Exam Eye Exam: EOMI - ENT Exam ENT Exam: Mucous Membranes Moist - Neck Exam Neck exam: Positive for: Full Rom, Normal Inspection - Respiratory Exam Respiratory Exam: Rales. absent: Respiratory Distress - Cardiovascular Exam Cardiovascular Exam: REGULAR RHYTHM, +S1, +S2 Additional comments: no JVD; no S3 - GI/Abdominal Exam GI & Abdominal Exam: Distended. absent: Guarding, Tenderness - Extremities Exam Extremities exam: Positive for: full ROM, pedal edema snuffbox radio-cephalic AVF - Back Exam Back exam: NORMAL INSPECTION - Neurological Exam Neurological exam: Alert, CN II-XII Intact, Oriented x3 - Psychiatric Exam Psychiatric exam: Normal Affect, Normal Mood - Skin Skin Exam: Dry, Intact, Normal Color, Warm Assessment and Plan - Assessment and Plan (Free Text) Assessment: CHF elevated Troponin I x 1 f/u 1300 troponin 1700 troponin Cardiology Consult: Dr. Presley 07/15 Echo is not most recent echo. pacemaker placed after July 15, 2017 echo copies of nuclear stress test and echo ordered. CAP CXR shows interstitial fluid f/u legionella f/u strep pneumoniae f/u mycoplasma f/u ABG rocephin Azithromycin Solumedrol 40mg IVP Q8H [facility] Duoneb 3cc INH Q4H [facility] Sleep apnea CPAP at night ESRD temp catheter and snuff box avf 11/25 received dialysis today. Renal mass f/u removal December [address] Riley Cummins, DO PGY1 <Rosangela Lin V - Last Filed: 11/25/17 18:34> Objective - Vital Signs/Intake and Output Vital Signs (last 24 hours): Temp Pulse Resp BP Pulse Ox 98.4 F 89 20 165/85 H 95 11/25/17 15:00 11/25/17 15:00 11/25/17 15:00 11/25/17 17:19 11/25/17 15:00 Intake and Output: 11/25/17 11/25/17 06:59 18:59 Intake Total 600 Balance 600 - Medications Medications: Current Medications Albuterol/Ipratropium (Duoneb 3 Mg/0.5 Mg (3 Ml) Ud) 3 ml INH RQ4 [facility] Last Admin: 11/25/17 16:26 Dose: 3 ml Aspirin (Aspirin Chewable) 81 mg PO DAILY [facility] Carvedilol (Coreg) 12.5 mg PO BID [facility] Last Admin: 11/25/17 17:19 Dose: 12.5 mg Dextrose (Dextrose 50% Inj) 0 ml IV STAT PRN; Protocol PRN Reason: Hypoglycemia Protocol Dextrose (Glutose 15) 0 gm PO ONCE PRN; Protocol PRN Reason: Hypoglycemia Protocol Furosemide (Lasix) 40 mg IVP BID [facility] Last Admin: 11/25/17 17:19 Dose: 40 mg Glucagon (Glucagen Diagnostic Kit) 0 mg IM STAT PRN; Protocol PRN Reason: Hypoglycemia Protocol Guaifenesin (Mucinex La) 600 mg PO Q12H [facility] Last Admin: 11/25/17 13:10 Dose: Not Given Heparin Sodium (Porcine) (Heparin) 5,000 units SC Q12 [facility] Last Admin: 11/25/17 10:46 Dose: Not Given Hydralazine HCl (Apresoline) 100 mg PO Q8 [facility] Last Admin: 11/25/17 14:00 Dose: Not Given Dextrose (Dextrose 5% In Water 1000 Ml) 1,000 mls @ 0 mls/hr IV .Q0M PRN; Protocol; Per Protocol PRN Reason: Hypoglycemia Protocol Ceftriaxone Sodium 1 gm/ (Sodium Chloride) 100 mls @ 100 mls/hr IVPB Q24H [facility] PRN Reason: Protocol Last Admin: 11/25/17 15:43 Dose: 100 mls/hr Insulin Human Regular (Novolin R) 0 unit SC ACHS [facility] PRN Reason: Protocol Last Admin: 11/25/17 17:19 Dose: Not Given Methylprednisolone (Solu-Medrol) 40 mg IVP Q8H [facility] Last Admin: 11/25/17 13:00 Dose: Not Given Montelukast Sodium (Singulair) 10 mg PO HS [facility] Pantoprazole Sodium (Protonix Ec Tab) 40 mg PO DAILY [facility] Last Admin: 11/25/17 10:39 Dose: 40 mg Rosuvastatin Calcium (Crestor) 10 mg PO HS [facility] Sevelamer Carbonate (Renvela) 800 mg PO TIDCC [facility] Last Admin: 11/25/17 17:19 Dose: 800 mg - Labs Labs: 11/25/17 06:22 11/25/17 06:22 Attending/Attestation - Attestation I have personally seen and examined this patient.: Yes I have fully participated in the care of the patient.: Yes I have reviewed all pertinent clinical information, including history, physical exam and plan: Yes Notes (Text): Patient seen, examined and case discussed with day-time resident. Patient seen during dialysis session, mild tachypneic, but is comfortable speaking full sentences, obese male, reports he felt better temporarily with prednisone and azithromycin. Patient reports productive cough as well. Pulmonary consulted on the case. Patient ordered for CT Chest. Patient started on IV abx to cover for community acquired pneumonia Patient has history of cardiomyopathy, prior echo in 07/22; he reports he underwent a cath, nuclear stress, and repeat echocardiogram with his ceramic coater machine, Dr Galindo; we will follow-up the results. Patient has mild troponin rise but he denies chest pain, palpitations. Discussed with cardiology , Dr. Presley who will follow-up. Assessment/Plan 1) Cardiomyopathy * Cardiology Consult: Dr. Presley on board help appreciated * 07/15 Echo is not most recent echo. * pacemaker placed after July 15, 2017 echo * We will need to f/u with Dr. Harmony Brown office for copies of nuclear stress test and echo ordered * Fluid restriction * intake and outputs * Aspirin 81mg PO daily * Coreg 12.5mg PO BID * Cresot 10mg POqHS 2) Pneumonia * Pulmonary (Dr. Klein) on board-->help appreciated * Will switch from Rocephin to Cefepime 1gram IV Q24H given patient is ESRD * c/w Azithromycin 500mg IV daily * CT Chest: widespread diffuse pulmonary infiltrates are appreciate with subtle ground-glass component likely reflecting pneumonia no inflammatory process is not excluded. No significant lymphadenopathy grossly evident in this unenhanced exam. Pulmonary artery hypertension is in question. Mild ascending thoracic aneurysm 4.3 cm greatest dimension terminating at the anterior arch * f/u legionella, f/u strep pneumoniae, f/u mycoplasma Igm * f/u ABG * Solumedrol 40mg IVP Q8H * Mucinex 600mg PO BID * Duoneb 3cc INH Q4H [facility] 3) History of Sleep apnea * CPAP at night 4) ESRD * Nephrology consult (Dr. Boswell) on consult * ESRD (MWF) 5) Left known Renal Mass * Patient scheduled for December [address] Sydney Bartlett 6) Diabetes * Patient refused accuchecks * a1c: 6.6 7) Hypertension * Hydralazine 100mg PO Q8H * Coreg 12.5mg PO BID * LAsix 40mg IV Q12H 8) Asthma * Duonebs every 4hours 9) Prophylactic care * Heparin 5000 units [id number]
[2017-11-25] MEDS: guaiFENesin 600 mg ER Tab PO SCH ×2 (13:10→22:24)
[2017-11-25 13:13] LABS: MYCOPLASMA PNEUMONIAE IGM NEGATIVE (NEGATIVE)
--- NOTE | 2017-11-25 13:55 | CARD ---
APPROVED REPORT EKG Measurement Heart [id number] CT [id number] <Conclusion> Normal sinus rhythm Normal ECG
[2017-11-25 14:43] LABS: CK-MB 1.24 ng/mL (0.0-3.38); TROPONIN I 0.247 ng/mL (0.00-0.120)
--- NOTE | 2017-11-25 17:43 | CP.PCM.CON ---
History of Present Illness - History of Present Illness History of Present Illness: 57 year old male with PMHx of Asthma, HTN, ESRD on dialysis, and DM, came to the ED for shortness of breath. According to EMR, patient was in the ED five days ago (11/20) for cough and congestion and found to have Pneumonia. Patient refused admission and signed out of ED AMA. Upon leaving ED, patient was given azithromycin and prednisone. Patient returned due to no improvement in symptoms. Patient complains of a productive cough. PMHx: DM, HTN, Asthma, ESRD on Dialysis, Sleep Apnea PSHx: Left arm radio-cephalic AV Fistula, Dialysis catheter insertion, Appendectomy, Pacemaker placement Allergies: NKDA FamHx: Mother on an CO Social Hx: Denies tobacco use. Consumed alcohol in the past. Denies drug use. Assessment/Plan: 1. Pneumonia -CXR 11/25: Moderate pulmonary vascular congestion. Diffuse bilateral airspace opacities, greater on the right lung. Findings favor pulmonary edema, however, infectious/inflammatory process cannot be excluded. -WBC 11/25: 11.7 - Continue CPAP - Continue Duoneb - Continue Ceftriaxone - Continue Solumedrol - Continue Singulair 2. Elevated Troponin - Troponin at 11:43am 11/25: 0.2470 - Pro-BNP 11/25 : 5990 3. End-Stage Renal Disease - continue hemodialysis 4. HTN - Management per Primary Team 5. Diabetes Mellitus - Management per primary team Past Patient History - Infectious Disease Hx of Infectious Diseases: None - Tetanus Immunizations Tetanus Immunization: Unknown - Past Medical History & Family History Past Medical History?: Yes - Past Social History Smoking Status: Never Smoked Chewing Tobacco Use: No Cigar Use: No Alcohol: None Drugs: Denies Home Situation {Lives}: With Family Domestic Violence: Negative - CARDIAC Hx Congestive Heart Failure: Yes Hx Hypertension: Yes - PULMONARY Hx Asthma: Yes Hx Pneumonia: Yes - NEUROLOGICAL Hx Neurological Disorder: No - HEENT Hx HEENT Problems: No - RENAL Hx Dialysis: Yes Type of Dialysis Access: Right chest wall; Left lower arm AV fistula Date of Last Dialysis Treatment: 11/22/17 - ENDOCRINE/METABOLIC Hx Diabetes Mellitus Type 2: Yes - HEMATOLOGICAL/ONCOLOGICAL Hx Blood Disorders: No - INTEGUMENTARY Hx Dermatological Problems: No - MUSCULOSKELETAL/RHEUMATOLOGICAL Hx Falls: No Hx Herniated Disk: Yes - GASTROINTESTINAL Hx Gastrointestinal Disorders: No - GENITOURINARY/GYNECOLOGICAL Hx Genitourinary Disorders: No - PSYCHIATRIC Hx Substance Use: No - SURGICAL HISTORY Hx Appendectomy: Yes (1982) - ANESTHESIA Hx Anesthesia: Yes Hx Anesthesia Reactions: No Hx Malignant Hyperthermia: No Meds Allergies/Adverse Reactions: Allergies Allergy/AdvReac Type Severity Reaction Status Date / Time No Known Allergies Allergy Verified 11/24/17 18:43 - Medications Medications: Current Medications Albuterol/Ipratropium (Duoneb 3 Mg/0.5 Mg (3 Ml) Ud) 3 ml INH RQ4 [facility] Last Admin: 11/25/17 16:26 Dose: 3 ml Aspirin (Aspirin Chewable) 81 mg PO DAILY [facility] Carvedilol (Coreg) 12.5 mg PO BID [facility] Last Admin: 11/25/17 17:19 Dose: 12.5 mg Dextrose (Dextrose 50% Inj) 0 ml IV STAT PRN; Protocol PRN Reason: Hypoglycemia Protocol Dextrose (Glutose 15) 0 gm PO ONCE PRN; Protocol PRN Reason: Hypoglycemia Protocol Furosemide (Lasix) 40 mg IVP BID [facility] Last Admin: 11/25/17 17:19 Dose: 40 mg Glucagon (Glucagen Diagnostic Kit) 0 mg IM STAT PRN; Protocol PRN Reason: Hypoglycemia Protocol Guaifenesin (Mucinex La) 600 mg PO Q12H [facility] Last Admin: 11/25/17 13:10 Dose: Not Given Heparin Sodium (Porcine) (Heparin) 5,000 units SC Q12 [facility] Last Admin: 11/25/17 10:46 Dose: Not Given Hydralazine HCl (Apresoline) 100 mg PO Q8 [facility] Last Admin: 11/25/17 14:00 Dose: Not Given Dextrose (Dextrose 5% In Water 1000 Ml) 1,000 mls @ 0 mls/hr IV .Q0M PRN; Protocol; Per Protocol PRN Reason: Hypoglycemia Protocol Ceftriaxone Sodium 1 gm/ (Sodium Chloride) 100 mls @ 100 mls/hr IVPB Q24H [facility] PRN Reason: Protocol Last Admin: 11/25/17 15:43 Dose: 100 mls/hr Insulin Human Regular (Novolin R) 0 unit SC ACHS [facility] PRN Reason: Protocol Last Admin: 11/25/17 17:19 Dose: Not Given Methylprednisolone (Solu-Medrol) 40 mg IVP Q8H [facility] Last Admin: 11/25/17 13:00 Dose: Not Given Montelukast Sodium (Singulair) 10 mg PO HS [facility] Pantoprazole Sodium (Protonix Ec Tab) 40 mg PO DAILY [facility] Last Admin: 11/25/17 10:39 Dose: 40 mg Rosuvastatin Calcium (Crestor) 10 mg PO HS [facility] Sevelamer Carbonate (Renvela) 800 mg PO TIDCC [facility] Last Admin: 11/25/17 17:19 Dose: 800 mg Results - Vital Signs Recent Vital Signs: Last Vital Signs Temp 98.4 F 11/25/17 15:00 Pulse 89 11/25/17 15:00 Resp 20 11/25/17 15:00 BP 165/85 H 11/25/17 17:19 Pulse Ox 95 11/25/17 15:00 - Labs Result Diagrams: 11/25/17 06:22 11/25/17 06:22 Labs: Laboratory Results - last 24 hr 11/24/17 11/24/17 11/25/17 19:11 19:11 06:22 WBC 11.8 H 11.7 H RBC 3.62 L 3.43 L Hgb 10.7 L 10.3 L Hct 31.7 L 30.0 L MCV 87.5 87.4 MCH 29.6 29.9 MCHC 33.9 34.2 RDW 16.3 H 15.6 H Plt Count 199 157 MPV 8.5 8.6 Neut % (Auto) 83.3 H 87.2 H Lymph % (Auto) 7.[address] [place] % (Auto) 8.1 6.8 Eos % (Auto) 1.0 1.0 Baso % (Auto) 0.1 0.1 Neut # (Auto) 9.8 H 10.2 H Lymph # (Auto) 0.[address] [place] # (Auto) 1.0 H 0.8 Eos # (Auto) 0.1 0.1 Baso # (Auto) 0.0 0.0 Neutrophils % (Manual) 87 H 93 H Lymphocytes % (Manual) 9 L 3 L Monocytes % (Manual) 4 2 Eosinophils % (Manual) 2 Platelet Estimate Normal Normal Polychromasia Slight Slight Hypochromasia (manual) Slight Slight Anisocytosis (manual) Slight Slight Sodium 140 Potassium 3.8 Chloride 99 Carbon Dioxide 29 Anion Gap 16 BUN 78 H Creatinine 4.8 H Est GFR ( Amer) 15 Est GFR (Non-Af Amer) 13 POC Glucose (mg/dL) Random Glucose 164 H Hemoglobin A1c Calcium 7.6 L Total Bilirubin 0.8 AST 26 ALT 41 Alkaline Phosphatase 68 Total Creatine Kinase CK-MB (Mass) Troponin I NT-Pro-B Natriuret Pep Total Protein 7.0 Albumin 3.8 Globulin 3.2 Albumin/Globulin Ratio 1.2 Triglycerides Cholesterol LDL Cholesterol Direct HDL Cholesterol Free T4 TSH 3rd Generation Influenza Typ A,B (EIA) Mycoplasma pneumon IgM 11/25/17 11/25/17 11/25/17 06:22 06:22 06:22 WBC RBC Hgb Hct MCV MCH MCHC RDW Plt Count MPV Neut % (Auto) Lymph % (Auto) [place] % (Auto) Eos % (Auto) Baso % (Auto) Neut # (Auto) Lymph # (Auto) [place] # (Auto) Eos # (Auto) Baso # (Auto) Neutrophils % (Manual) Lymphocytes % (Manual) Monocytes % (Manual) Eosinophils % (Manual) Platelet Estimate Polychromasia Hypochromasia (manual) Anisocytosis (manual) Sodium 139 Potassium 3.8 Chloride 100 Carbon Dioxide 29 Anion Gap 14 BUN 81 H Creatinine 4.8 H Est GFR ( Amer) 15 Est GFR (Non-Af Amer) 13 POC Glucose (mg/dL) Random Glucose 173 H Hemoglobin A1c 6.6 H Calcium 8.0 L Total Bilirubin 0.9 AST 24 ALT 39 Alkaline Phosphatase 63 Total Creatine Kinase CK-MB (Mass) Troponin I NT-Pro-B Natriuret Pep Total Protein 6.1 L Albumin 3.2 L Globulin 2.9 Albumin/Globulin Ratio 1.1 Triglycerides 424 H Cholesterol 187 LDL Cholesterol Direct 64 HDL Cholesterol 28 L Free T4 0.97 TSH 3rd Generation 2.37 Influenza Typ A,B (EIA) Mycoplasma pneumon IgM 11/25/17 11/25/17 11/25/17 06:56 11:45 11:53 WBC RBC Hgb Hct MCV MCH MCHC RDW Plt Count MPV Neut % (Auto) Lymph % (Auto) [place] % (Auto) Eos % (Auto) Baso % (Auto) Neut # (Auto) Lymph # (Auto) [place] # (Auto) Eos # (Auto) Baso # (Auto) Neutrophils % (Manual) Lymphocytes % (Manual) Monocytes % (Manual) Eosinophils % (Manual) Platelet Estimate Polychromasia Hypochromasia (manual) Anisocytosis (manual) Sodium Potassium Chloride Carbon Dioxide Anion Gap BUN Creatinine Est GFR ( Amer) Est GFR (Non-Af Amer) POC Glucose (mg/dL) Random Glucose Hemoglobin A1c Calcium Total Bilirubin AST ALT Alkaline Phosphatase Total Creatine Kinase 89 CK-MB (Mass) 1.36 Troponin I 0.2470 H* NT-Pro-B Natriuret Pep 5990 H Total Protein Albumin Globulin Albumin/Globulin Ratio Triglycerides Cholesterol LDL Cholesterol Direct HDL Cholesterol Free T4 TSH 3rd Generation Influenza Typ A,B (EIA) Negative for flu a/b Mycoplasma pneumon IgM Negative 11/25/17 11/25/17 11/25/17 12:14 13:54 16:09 WBC RBC Hgb Hct MCV MCH MCHC RDW Plt Count MPV Neut % (Auto) Lymph % (Auto) [place] % (Auto) Eos % (Auto) Baso % (Auto) Neut # (Auto) Lymph # (Auto) [place] # (Auto) Eos # (Auto) Baso # (Auto) Neutrophils % (Manual) Lymphocytes % (Manual) Monocytes % (Manual) Eosinophils % (Manual) Platelet Estimate Polychromasia Hypochromasia (manual) Anisocytosis (manual) Sodium Potassium Chloride Carbon Dioxide Anion Gap BUN Creatinine Est GFR ( Amer) Est GFR (Non-Af Amer) POC Glucose (mg/dL) 156 H 178 H Random Glucose Hemoglobin A1c Calcium Total Bilirubin AST ALT Alkaline Phosphatase Total Creatine Kinase 89 CK-MB (Mass) 1.24 Troponin I 0.2470 H* NT-Pro-B Natriuret Pep Total Protein Albumin Globulin Albumin/Globulin Ratio Triglycerides Cholesterol LDL Cholesterol Direct HDL Cholesterol Free T4 TSH 3rd Generation Influenza Typ A,B (EIA) Mycoplasma pneumon IgM
--- NOTE | 2017-11-25 17:55 | CT ---
PROCEDURE: CT Chest without contrast HISTORY: shortness of breathe, copd, pneumonia COMPARISON: Chest radiograph 11/24/2017. TECHNIQUE: Contiguous axial images were obtained through the chest without intravenous contrast enhancement. Sagittal and coronal reconstructions were performed. Radiation dose (DLP): 1005.02 mGy-cm. This CT exam was performed using one or more of the following dose reduction techniques: Automated exposure control, adjustment of the mA and/or kV according to patient size, and/or use of iterative reconstruction technique. FINDINGS: LUNGS: Scattered infiltrates are appreciated diffusely throughout the bilateral upper and lower as well as right middle lobe. Subtle ground-glass component is associated. Right lung appears more affected than the left. Central airways are clear no definitive mass is appreciated throughout the parenchyma either. Infiltrates may obscure underlying lesions. MEDIASTINUM: Cardiomegaly is appreciated with left subclavian pacemaker placed as well as right internal jugular central venous dialysis catheter with pacemaker leads terminating at the right heart and catheter tips terminating at the right atrium. Cardiomegaly is mild. Trace pericardial effusion or thickening is noted. Main pulmonary artery is dilated to 3.9 cm which may indicate pulmonary artery hypertension. Clinically correlate. Proximal thoracic aorta measures 4.3 cm with a normal caliber root. This represents a mild aneurysm terminating at the anterior arch which measure appears 3.7 cm. No significant lymphadenopathy is grossly evident in this unenhanced examination. PLEURA: No pleural fluid. No pneumothorax. BONES: No fracture. No destructive lesion. UPPER ABDOMEN: Grossly unremarkable. OTHER FINDINGS: None. IMPRESSION: Widespread diffuse pulmonary infiltrates are appreciate with subtle ground-glass component likely reflecting pneumonia no inflammatory process is not excluded. No significant lymphadenopathy grossly evident in this unenhanced exam. Pulmonary artery hypertension is in question. Clinically correlate. Mild ascending thoracic aortic aneurysm 4.3 cm greatest dimension terminating at the anterior arch.
[2017-11-25] MEDS: Cefepime IV 1 gm in Dextrose 1 GM/50 ML BAG IVPB SCH (19:24)
--- NOTE | 2017-11-25 19:38 | CP.PCM.CON ---
History of Present Illness - History of Present Illness History of Present Illness: 57 year old male with PMHx of Asthma, HTN, ESRD on dialysis, and DM, came to the ED for shortness of breath. According to EMR, patient was in the ED five days ago (11/20) for cough and congestion and found to have Pneumonia. Patient refused admission and signed out of ED AMA. Upon leaving ED, patient was given azithromycin and prednisone. Patient returned due to no improvement in symptoms. Patient complains of a productive cough. PMHx: DM, HTN, Asthma, ESRD on Dialysis, Sleep Apnea PSHx: Left arm radio-cephalic AV Fistula, Dialysis catheter insertion, Appendectomy, Pacemaker placement Allergies: NKDA FamHx: Mother on an [place] Social Hx: Denies tobacco use. Consumed alcohol in the past. Denies drug use. - [facility] Procedures (07/15/17) BYPASS LEFT RADIAL ARTERY TO LOWER ARM VEIN, OPEN APPROACH (07/15/17) FLUOROSCOPY OF SUPERIOR VENA CAVA, GUIDANCE (07/15/17) INSERTION OF INFUSION DEV INTO SUP VENA CAVA, PERC APPROACH (07/15/17) INSERTION OF VAD INTO CHEST SUBCU/FASCIA, PERC APPROACH (07/15/17) TRANSFUSE NONAUT RED BLOOD CELLS IN PERIPH VEIN, PERC (07/15/17) Review of Systems - Review of Systems All systems: reviewed and no additional remarkable complaints except - Constitutional Constitutional: As Per HPI - EENT Eyes: absent: As Per HPI, Blind Spots, Blurred Vision, Change in Vision, Decreased Night Vision, Diplopia, Discharge, Dry Eye, Exophthalmos, Floaters, Irritation, Itchy Eyes, Loss of Peripheral Vision, Pain, Photophobia, Requires Corrective Lenses, Sees Flashes, Spots in Vision, Tunnel Vision, Other Visual Disturbances, Loss of Vision, Other Ears: absent: As Per HPI, Decreased Hearing, Ear Discharge, Ear Pain, Tinnitus, Abnormal Hearing, Disequilibrium, Dizziness, Other Nose/Mouth/Throat: absent: As Per HPI, Epistaxis, Nasal Congestion, Nasal Discharge, Nasal Obstruction, Nasal Trauma, Nose Pain, Post Nasal Drip, Sinus Pain, Sinus Pressure, Bleeding Gums, Change in Voice, Dental Pain, Dry Mouth, Dysphagia, Halitosis, Hoarsness, Lip Swelling, Mouth Lesions, Mouth Pain, Odynophagia, Sore Throat, Throat Swelling, Tongue Swelling, Facial Pain, Neck Pain, Neck Mass, Other - Cardiovascular Cardiovascular: As Per HPI - Respiratory Respiratory: As Per HPI, Cough, Dyspnea. absent: Hemoptysis - Gastrointestinal Gastrointestinal: absent: As Per HPI, Abdominal Pain, Belching, Bloating, Change in Bowel Habits, Change in Stool Character, Coffee Ground Emesis, Constipation, Cramping, Diarrhea, Dyspepsia, Dysphagia, Early Satiety, Excessive Flatus, Fecal Incontinence, Heartburn, Hematemesis, Hematochezia, Loose Stools, Melena, Nausea, Odynophagia, Temesmus, Vomiting, Other - Genitourinary Genitourinary: absent: As Per HPI, Change in Urinary Stream, Difficulty Urinating, Dysuria, Flank Pain, Hematuria, Pyuria, Nocturia, Urinary Incontinence, Urinary Frequency, Urinary Hesitance, Urinary Urgency, Voiding Freq/Small Amts, Freq UTI, Hx Renal/Bladder Calculi, Hx /Renal Surgery, Bladder Distension, Other - Musculoskeletal Musculoskeletal: absent: As Per HPI, Abnormal Gait, Arthralgias, Atrophy, Back Pain, Deformity, Joint Swelling, Limited Range of Motion, Loss of Height, Muscle Cramps, Muscle Weakness, Myalgias, Neck Pain, Numbness, Radiating Pain into Limb, Stiffness, Tingling, Other - Integumentary Integumentary: absent: As Per HPI, Acne, Alopecia, Bleeding Lesions, Change in Hair, Change in Nails, Change in Pigmentation, Changing Lesions, Dry Skin, Erythema, Furuncle, Hirsutism, Lesions, New Lesions, Non-Healing Lesions, Photosensitivity, Pruritus, Rash, Skin Pain, Skin Ulcer, Sores, Striae, Swelling , Unusual Bruising, Wounds, Jaundice, Other - Neurological Neurological: absent: As Per HPI, Abnormal Gait, Abnormal Hearing, Abnormal Movements, Abnormal Speech, Behavioral Changes, Burning Sensations, Confusion, Convulsions, Disequilibrium, Dizziness, Numbness, Focal Weakness, Frequent Falls , Headaches, Lack of Coordination, Loss of Vision, Memory Loss, Paresthesias, Radicular Pain, Restless Legs, Sensory Deficit, Syncope, Tingling, Tremor, Vertigo, Weakness, Other Visual Disturbances, Other - Psychiatric Psychiatric: absent: As Per HPI, Abnormal Sleep Pattern, Anhedonia, Anxiety, Auditory Hallucinations, Behavioral Changes, Change in Appetite, Change in Libido, Confusion, Depression, Difficulty Concentrating, Hallucinations, Homicidal Ideation, Hopelessness, Irritability, Memory Loss, Mood Swings, Panic Attacks, Paranoia, Suicidal Ideation, Visual Hallucinations, Tactile Hallucinations, Other - Endocrine Endocrine: absent: As Per HPI, Change in Body Appearance, Change in Libido, Cold Intolorance, Deepening of Voice, Excessive Sweating, Fatigue, Flushing, Heat Intolorance, Increase in Ring/Shoe/Hat Size, Palpitations, Polydipsia, Polyphagia, Polyuria, Other - Hematologic/Lymphatic Hematologic: absent: As Per HPI, Easy Bleeding, Easy Bruising, Lymphadenopathy, Other Past Patient History - Infectious Disease Hx of Infectious Diseases: None - Tetanus Immunizations Tetanus Immunization: Unknown - Past Medical History & Family History Past Medical History?: Yes - Past Social History Smoking Status: Never Smoked Chewing Tobacco Use: No Cigar Use: No Alcohol: None Drugs: Denies Home Situation {Lives}: With Family Domestic Violence: Negative - CARDIAC Hx Congestive Heart Failure: Yes Hx Hypertension: Yes - PULMONARY Hx Asthma: Yes Hx Pneumonia: Yes - NEUROLOGICAL Hx Neurological Disorder: No - HEENT Hx HEENT Problems: No - RENAL Hx Dialysis: Yes Type of Dialysis Access: Right chest wall; Left lower arm AV fistula Date of Last Dialysis Treatment: 11/22/17 - ENDOCRINE/METABOLIC Hx Diabetes Mellitus Type 2: Yes - HEMATOLOGICAL/ONCOLOGICAL Hx Blood Disorders: No - INTEGUMENTARY Hx Dermatological Problems: No - MUSCULOSKELETAL/RHEUMATOLOGICAL Hx Falls: No Hx Herniated Disk: Yes - GASTROINTESTINAL Hx Gastrointestinal Disorders: No - GENITOURINARY/GYNECOLOGICAL Hx Genitourinary Disorders: No - PSYCHIATRIC Hx Substance Use: No - SURGICAL HISTORY Hx Appendectomy: Yes (1982) - ANESTHESIA Hx Anesthesia: Yes Hx Anesthesia Reactions: No Hx Malignant Hyperthermia: No Meds Allergies/Adverse Reactions: Allergies Allergy/AdvReac Type Severity Reaction Status Date / Time No Known Allergies Allergy Verified 11/24/17 18:43 - Medications Medications: Current Medications Albuterol/Ipratropium (Duoneb 3 Mg/0.5 Mg (3 Ml) Ud) 3 ml INH RQ4 [facility] Last Admin: 11/25/17 16:26 Dose: 3 ml Aspirin (Aspirin Chewable) 81 mg PO DAILY [facility] Carvedilol (Coreg) 12.5 mg PO BID [facility] Last Admin: 11/25/17 17:19 Dose: 12.5 mg Dextrose (Dextrose 50% Inj) 0 ml IV STAT PRN; Protocol PRN Reason: Hypoglycemia Protocol Dextrose (Glutose 15) 0 gm PO ONCE PRN; Protocol PRN Reason: Hypoglycemia Protocol Furosemide (Lasix) 40 mg IVP BID [facility] Last Admin: 11/25/17 17:19 Dose: 40 mg Glucagon (Glucagen Diagnostic Kit) 0 mg IM STAT PRN; Protocol PRN Reason: Hypoglycemia Protocol Guaifenesin (Mucinex La) 600 mg PO Q12H [facility] Last Admin: 11/25/17 13:10 Dose: Not Given Heparin Sodium (Porcine) (Heparin) 5,000 units SC Q12 [facility] Last Admin: 11/25/17 10:46 Dose: Not Given Hydralazine HCl (Apresoline) 100 mg PO Q8 [facility] Last Admin: 11/25/17 14:00 Dose: Not Given Dextrose (Dextrose 5% In Water 1000 Ml) 1,000 mls @ 0 mls/hr IV .Q0M PRN; Protocol; Per Protocol PRN Reason: Hypoglycemia Protocol Cefepime HCl (Maxipime Iv 1 Gm Premix) 1 gm in 50 mls @ 100 mls/hr IVPB Q24H [facility] PRN Reason: Protocol Last Admin: 11/25/17 19:24 Dose: 100 mls/hr Insulin Human Regular (Novolin R) 0 unit SC ACHS [facility] PRN Reason: Protocol Last Admin: 11/25/17 17:19 Dose: Not Given Methylprednisolone (Solu-Medrol) 40 mg IVP Q8H [facility] Last Admin: 11/25/17 13:00 Dose: Not Given Montelukast Sodium (Singulair) 10 mg PO HS [facility] Pantoprazole Sodium (Protonix Ec Tab) 40 mg PO DAILY [facility] Last Admin: 11/25/17 10:39 Dose: 40 mg Rosuvastatin Calcium (Crestor) 10 mg PO HS [facility] Sevelamer Carbonate (Renvela) 800 mg PO TIDCC [facility] Last Admin: 11/25/17 17:19 Dose: 800 mg Physical Exam - Constitutional Appears: Non-toxic, No Acute Distress, Chronically Ill - Head Exam Head Exam: NORMOCEPHALIC - Eye Exam Eye Exam: PERRL. absent: Scleral icterus Pupil Exam: NORMAL ACCOMODATION, PERRL - ENT Exam ENT Exam: Mucous Membranes Dry - Neck Exam Neck exam: Positive for: Normal Inspection. Negative for: Lymphadenopathy - Respiratory Exam Respiratory Exam: Decreased Breath Sounds, Prolonged Expiratory Phase, Rhonchi, Wheezes. absent: Respiratory Distress - Cardiovascular Exam Cardiovascular Exam: REGULAR RHYTHM, +S1, +S2 - GI/Abdominal Exam GI & Abdominal Exam: Diminished Bowel Sounds, Distended, Soft. absent: Tenderness - Rectal Exam Rectal Exam: NORMAL INSPECTION - Exam Exam: Circumcision, NORMAL INSPECTION - Extremities Exam Extremities exam: Positive for: normal inspection - Back Exam Back exam: NORMAL INSPECTION - Neurological Exam Neurological exam: Alert, CN II-XII Intact, Normal Gait, Oriented x3, Reflexes Normal - Psychiatric Exam Psychiatric exam: Normal Affect, Normal Mood - Skin Skin Exam: Dry, Intact, Normal Color, Warm Results - Vital Signs Recent Vital Signs: Last Vital Signs Temp 98.4 F 11/25/17 15:00 Pulse 89 11/25/17 15:00 Resp 20 11/25/17 15:00 BP 165/85 H 11/25/17 17:19 Pulse Ox 95 11/25/17 15:00 - Labs Result Diagrams: 11/25/17 06:22 11/25/17 06:22 Labs: Laboratory Results - last 24 hr 11/24/17 11/25/17 11/25/17 19:11 06:22 06:22 WBC 11.8 H 11.7 H RBC 3.62 L 3.43 L Hgb 10.7 L 10.3 L Hct 31.7 L 30.0 L MCV 87.5 87.4 MCH 29.6 29.9 MCHC 33.9 34.2 RDW 16.3 H 15.6 H Plt Count 199 157 MPV 8.5 8.6 Neut % (Auto) 83.3 H 87.2 H Lymph % (Auto) 7.5 L 4.9 L [place] % (Auto) 8.1 6.8 Eos % (Auto) 1.0 1.0 Baso % (Auto) 0.1 0.1 Neut # (Auto) 9.8 H 10.2 H Lymph # (Auto) 0.9 L 0.6 L [place] # (Auto) 1.0 H 0.8 Eos # (Auto) 0.1 0.1 Baso # (Auto) 0.0 0.0 Neutrophils % (Manual) 87 H 93 H Lymphocytes % (Manual) 9 L 3 L Monocytes % (Manual) 4 2 Eosinophils % (Manual) 2 Platelet Estimate Normal Normal Polychromasia Slight Slight Hypochromasia (manual) Slight Slight Anisocytosis (manual) Slight Slight Sodium 139 Potassium 3.8 Chloride 100 Carbon Dioxide 29 Anion Gap 14 BUN 81 H Creatinine 4.8 H Est GFR ( Amer) 15 Est GFR (Non-Af Amer) 13 POC Glucose (mg/dL) Random Glucose 173 H Hemoglobin A1c Calcium 8.0 L Total Bilirubin 0.9 AST 24 ALT 39 Alkaline Phosphatase 63 Total Creatine Kinase CK-MB (Mass) Troponin I NT-Pro-B Natriuret Pep Total Protein 6.1 L Albumin 3.2 L Globulin 2.9 Albumin/Globulin Ratio 1.1 Triglycerides 424 H Cholesterol 187 LDL Cholesterol Direct 64 HDL Cholesterol 28 L Free T4 TSH 3rd Generation 2.37 Influenza Typ A,B (EIA) Mycoplasma pneumon IgM 11/25/17 11/25/17 11/25/17 06:22 06:22 06:56 WBC RBC Hgb Hct MCV MCH MCHC RDW Plt Count MPV Neut % (Auto) Lymph % (Auto) [place] % (Auto) Eos % (Auto) Baso % (Auto) Neut # (Auto) Lymph # (Auto) [place] # (Auto) Eos # (Auto) Baso # (Auto) Neutrophils % (Manual) Lymphocytes % (Manual) Monocytes % (Manual) Eosinophils % (Manual) Platelet Estimate Polychromasia Hypochromasia (manual) Anisocytosis (manual) Sodium Potassium Chloride Carbon Dioxide Anion Gap BUN Creatinine Est GFR ( Amer) Est GFR (Non-Af Amer) POC Glucose (mg/dL) Random Glucose Hemoglobin A1c 6.6 H Calcium Total Bilirubin AST ALT Alkaline Phosphatase Total Creatine Kinase CK-MB (Mass) Troponin I NT-Pro-B Natriuret Pep Total Protein Albumin Globulin Albumin/Globulin Ratio Triglycerides Cholesterol LDL Cholesterol Direct HDL Cholesterol Free T4 0.97 TSH 3rd Generation Influenza Typ A,B (EIA) Negative for flu a/b Mycoplasma pneumon IgM 11/25/17 11/25/17 11/25/17 11:45 11:53 12:14 WBC RBC Hgb Hct MCV MCH MCHC RDW Plt Count MPV Neut % (Auto) Lymph % (Auto) [place] % (Auto) Eos % (Auto) Baso % (Auto) Neut # (Auto) Lymph # (Auto) [place] # (Auto) Eos # (Auto) Baso # (Auto) Neutrophils % (Manual) Lymphocytes % (Manual) Monocytes % (Manual) Eosinophils % (Manual) Platelet Estimate Polychromasia Hypochromasia (manual) Anisocytosis (manual) Sodium Potassium Chloride Carbon Dioxide Anion Gap BUN Creatinine Est GFR ( Amer) Est GFR (Non-Af Amer) POC Glucose (mg/dL) 156 H Random Glucose Hemoglobin A1c Calcium Total Bilirubin AST ALT Alkaline Phosphatase Total Creatine Kinase 89 CK-MB (Mass) 1.36 Troponin I 0.2470 H* NT-Pro-B Natriuret Pep 5990 H Total Protein Albumin Globulin Albumin/Globulin Ratio Triglycerides Cholesterol LDL Cholesterol Direct HDL Cholesterol Free T4 TSH 3rd Generation Influenza Typ A,B (EIA) Mycoplasma pneumon IgM Negative 11/25/17 11/25/17 13:54 16:09 WBC RBC Hgb Hct MCV MCH MCHC RDW Plt Count MPV Neut % (Auto) Lymph % (Auto) [place] % (Auto) Eos % (Auto) Baso % (Auto) Neut # (Auto) Lymph # (Auto) [place] # (Auto) Eos # (Auto) Baso # (Auto) Neutrophils % (Manual) Lymphocytes % (Manual) Monocytes % (Manual) Eosinophils % (Manual) Platelet Estimate Polychromasia Hypochromasia (manual) Anisocytosis (manual) Sodium Potassium Chloride Carbon Dioxide Anion Gap BUN Creatinine Est GFR ( Amer) Est GFR (Non-Af Amer) POC Glucose (mg/dL) 178 H Random Glucose Hemoglobin A1c Calcium Total Bilirubin AST ALT Alkaline Phosphatase Total Creatine Kinase 89 CK-MB (Mass) 1.24 Troponin I 0.2470 H* NT-Pro-B Natriuret Pep Total Protein Albumin Globulin Albumin/Globulin Ratio Triglycerides Cholesterol LDL Cholesterol Direct HDL Cholesterol Free T4 TSH 3rd Generation Influenza Typ A,B (EIA) Mycoplasma pneumon IgM Assessment & Plan (1) Pneumonia Status: Acute (2) Renal failure Status: Acute (3) Anemia Status: Acute (4) Chronic congestive heart failure Status: Acute (5) Dyspnea Status: Acute (6) Elevated troponin Status: Acute (7) Hypertension Status: Acute (8) Left against medical advice Status: Acute - Assessment and Plan (Free Text) Assessment: scattered bilateral infiltrates - etio to be determined component of CHF likely post diuresis films will help await cultures cont iv antibiotics check serologies, sputum
[2017-11-25 20:15] LABS: ABG ALLEN TEST POS; ARTERIAL BLOOD GAS HCO3 30.8 mmol/L (21-28); ARTERIAL BLOOD GAS HEMOGLOBIN 11.7 g/dL (11.7-17.4); ARTERIAL BLOOD GAS O2 SAT 95.2 % (95-98); ARTERIAL BLOOD GAS PCO2 43 mm/Hg (35-45); ARTERIAL BLOOD GAS PH 7.48 (7.35-7.45); ARTERIAL BLOOD GAS PO2 58 mm/Hg (80-100); ARTERIAL BLOOD GAS TCO2 33.3 mmol/L (22-28)
--- NOTE | 2017-11-25 22:37 | CP.PCM.CON ---
<Sal Allen - Last Filed: 11/25/17 23:34> History of Present Illness - History of Present Illness History of Present Illness: Sal Alejandro PGY1 Cardiology Consult Note for Dr. Presley Mr. Mehta is a 57 yo male with past medical hx of left renal mass w / planned left radical nephrectomy (12/2017), CHF w/ pacemaker placement, ESRD on HD asthma, HTN, DM2, sleep apnea and morbid obesity who presented with complaints of shortness of breath x2 weeks that did not improve with antibiotics and prednisone. Cardiology was consulted to evaluate for elevated troponin and CHF symptoms. Patient seen in dialysis unit. He reports cough with brown phlegm, but denies fevers/chills or sick contacts. The patient states that he has trouble sleeping at night and can only sleep on his back due to his sleep apnea (but he doesn't have a CPAP machine at home). He denies noctrunal dyspnea and doesn't require more than 1 pillow to sleep. He also states that he can walk about 12 steps before feeling short of breath but can continue at a slow pace without trouble. He denies chest pain or palpitations throughout this episode. He has a maturing AV fistula left arm. In the meantime, he is getting dialysis through a temporary catheter, and states he is compliant with his sessions. Patient states that he follows up with Dr. Brown who performed echo and cardiac cath recently but cannot recall the results, however, he states that his pacemaker was placed in the past 5 months because his heart was "weak" . Otherwise, patient feels well and offers no complaints of leg swelling, chest pain, abdominal pain, fevers/chills or palpitations. 12-pt ROS was reviewed and is otherwise unremarkable. Reports were obtained from Dr. Brown's office indicating: Echo 08/20/17: EF 27% w/ mild aortic stenosis and small ASD w/ right to left shunt LHC 08/05/16: no ischemic CAD PMD: Dr.Merwin Brown PMH: as above PSH: Left arm radio-cephalic AV Fistula, Dialysis catheter insertion, Appendectomy, Pacemaker placement Allergies: NKDA FH: Mother- - DC; Father- living- no medical issues Social hx: Denies smoking. Former alcohol drinker. Denies drug use. Fully mobile w/o assistnace. Does not work; on disability due to his asthma. Review of Systems - Review of Systems All systems: reviewed and no additional remarkable complaints except (as per HPI ) Past Patient History - Infectious Disease Hx of Infectious Diseases: None - Tetanus Immunizations Tetanus Immunization: Unknown - Past Medical History & Family History Past Medical History?: Yes - Past Social History Smoking Status: Never Smoked Chewing Tobacco Use: No Cigar Use: No Alcohol: None Drugs: Denies Home Situation {Lives}: With Family Domestic Violence: Negative - CARDIAC Hx Congestive Heart Failure: Yes Hx Hypertension: Yes - PULMONARY Hx Asthma: Yes Hx Pneumonia: Yes - NEUROLOGICAL Hx Neurological Disorder: No - HEENT Hx HEENT Problems: No - RENAL Hx Chronic Kidney Disease: Yes Hx Dialysis: Yes Type of Dialysis Access: Right chest wall; Left lower arm AV fistula Date of Last Dialysis Treatment: 11/22/17 Hx Renal (Kidney) Cancer: Yes Hx Renal Failure: Yes - ENDOCRINE/METABOLIC Hx Diabetes Mellitus Type 2: Yes - HEMATOLOGICAL/ONCOLOGICAL Hx Blood Disorders: No - INTEGUMENTARY Hx Dermatological Problems: No - MUSCULOSKELETAL/RHEUMATOLOGICAL Hx Falls: No Hx Herniated Disk: Yes - GASTROINTESTINAL Hx Gastrointestinal Disorders: No - GENITOURINARY/GYNECOLOGICAL Hx Genitourinary Disorders: No - PSYCHIATRIC Hx Substance Use: No - SURGICAL HISTORY Hx Appendectomy: Yes (1982) - ANESTHESIA Hx Anesthesia: Yes Hx Anesthesia Reactions: No Hx Malignant Hyperthermia: No Meds Allergies/Adverse Reactions: Allergies Allergy/AdvReac Type Severity Reaction Status Date / Time No Known Allergies Allergy Verified 11/24/17 18:43 - Medications Medications: Current Medications Albuterol/Ipratropium (Duoneb 3 Mg/0.5 Mg (3 Ml) Ud) 3 ml INH RQ4 [facility] Last Admin: 11/25/17 19:55 Dose: 3 ml Aspirin (Aspirin Chewable) 81 mg PO DAILY [facility] Carvedilol (Coreg) 12.5 mg PO BID [facility] Last Admin: 11/25/17 17:19 Dose: 12.5 mg Dextrose (Dextrose 50% Inj) 0 ml IV STAT PRN; Protocol PRN Reason: Hypoglycemia Protocol Dextrose (Glutose 15) 0 gm PO ONCE PRN; Protocol PRN Reason: Hypoglycemia Protocol Furosemide (Lasix) 40 mg IVP BID [facility] Last Admin: 11/25/17 17:19 Dose: 40 mg Glucagon (Glucagen Diagnostic Kit) 0 mg IM STAT PRN; Protocol PRN Reason: Hypoglycemia Protocol Guaifenesin (Mucinex La) 600 mg PO Q12H [facility] Last Admin: 11/25/17 13:10 Dose: Not Given Heparin Sodium (Porcine) (Heparin) 5,000 units SC Q12 [facility] Last Admin: 11/25/17 22:04 Dose: Not Given Hydralazine HCl (Apresoline) 100 mg PO Q8 [facility] Last Admin: 11/25/17 21:59 Dose: 100 mg Dextrose (Dextrose 5% In Water 1000 Ml) 1,000 mls @ 0 mls/hr IV .Q0M PRN; Protocol; Per Protocol PRN Reason: Hypoglycemia Protocol Cefepime HCl (Maxipime Iv 1 Gm Premix) 1 gm in 50 mls @ 100 mls/hr IVPB Q24H [facility] PRN Reason: Protocol Last Admin: 11/25/17 19:24 Dose: 100 mls/hr Insulin Human Regular (Novolin R) 0 unit SC ACHS [facility] PRN Reason: Protocol Last Admin: 11/25/17 22:04 Dose: Not Given Methylprednisolone (Solu-Medrol) 40 mg IVP Q8H [facility] Last Admin: 11/25/17 21:59 Dose: 40 mg Montelukast Sodium (Singulair) 10 mg PO HS [facility] Last Admin: 11/25/17 21:59 Dose: 10 mg Pantoprazole Sodium (Protonix Ec Tab) 40 mg PO DAILY [facility] Last Admin: 11/25/17 10:39 Dose: 40 mg Rosuvastatin Calcium (Crestor) 10 mg PO HS [facility] Sevelamer Carbonate (Renvela) 800 mg PO TIDCC [facility] Last Admin: 11/25/17 17:19 Dose: 800 mg Physical Exam - Constitutional Appears: Well, Non-toxic, No Acute Distress - Head Exam Head Exam: NORMAL INSPECTION - Eye Exam Eye Exam: Normal appearance Pupil Exam: NORMAL ACCOMODATION - ENT Exam ENT Exam: Mucous Membranes Moist - Neck Exam Neck exam: Positive for: Normal Inspection - Respiratory Exam Respiratory Exam: Rales (b/l bases), NORMAL BREATHING PATTERN. absent: Rhonchi , Wheezes - Cardiovascular Exam Cardiovascular Exam: RRR, +S1, +S2 - GI/Abdominal Exam GI & Abdominal Exam: Normal Bowel Sounds, Soft. absent: Distended, Tenderness - Extremities Exam Extremities exam: Positive for: normal inspection, pedal edema (1+) - Back Exam Back exam: NORMAL INSPECTION - Neurological Exam Neurological exam: Alert - Psychiatric Exam Psychiatric exam: Normal Affect, Normal Mood - Skin Skin Exam: Normal Color Results - Vital Signs Recent Vital Signs: Last Vital Signs Temp 98.4 F 11/25/17 15:00 Pulse 89 11/25/17 15:00 Resp 20 11/25/17 15:00 BP 165/85 H 11/25/17 17:19 Pulse Ox 95 11/25/17 15:00 - Labs Result Diagrams: 11/25/17 06:22 11/25/17 06:22 Labs: Laboratory Results - last 24 hr 11/25/17 11/25/17 11/25/17 06:22 06:22 06:22 WBC 11.7 H RBC 3.43 L Hgb 10.3 L Hct 30.0 L MCV 87.4 MCH 29.9 MCHC 34.2 RDW 15.6 H Plt Count 157 MPV 8.6 Neut % (Auto) 87.2 H Lymph % (Auto) 4.9 L Brooke % (Auto) 6.8 Eos % (Auto) 1.0 Baso % (Auto) 0.1 Neut # (Auto) 10.2 H Lymph # (Auto) 0.6 L Brooke # (Auto) 0.8 Eos # (Auto) 0.1 Baso # (Auto) 0.0 Neutrophils % (Manual) 93 H Lymphocytes % (Manual) 3 L Monocytes % (Manual) 2 Eosinophils % (Manual) 2 Platelet Estimate Normal Polychromasia Slight Hypochromasia (manual) Slight Anisocytosis (manual) Slight Puncture Site pCO2 pO2 HCO3 ABG pH ABG Total CO2 ABG O2 Saturation ABG Base Excess ABG Hemoglobin ABG Carboxyhemoglobin POC ABG HHb (Measured) ABG Methemoglobin Ananda Test A-a O2 Difference Respiratory Index Hgb O2 Saturation FiO2 Sodium 139 Potassium 3.8 Chloride 100 Carbon Dioxide 29 Anion Gap 14 BUN 81 H Creatinine 4.8 H Est GFR ( Amer) 15 Est GFR (Non-Af Amer) 13 POC Glucose (mg/dL) Random Glucose 173 H Hemoglobin A1c 6.6 H Calcium 8.0 L Total Bilirubin 0.9 AST 24 ALT 39 Alkaline Phosphatase 63 Total Creatine Kinase CK-MB (Mass) Troponin I NT-Pro-B Natriuret Pep Total Protein 6.1 L Albumin 3.2 L Globulin 2.9 Albumin/Globulin Ratio 1.1 Triglycerides 424 H Cholesterol 187 LDL Cholesterol Direct 64 HDL Cholesterol 28 L Free T4 TSH 3rd Generation 2.37 Influenza Typ A,B (EIA) Ur L.pneumophila Ag Mycoplasma pneumon IgM 11/25/17 11/25/17 11/25/17 06:22 06:56 11:45 WBC RBC Hgb Hct MCV MCH MCHC RDW Plt Count MPV Neut % (Auto) Lymph % (Auto) Brooke % (Auto) Eos % (Auto) Baso % (Auto) Neut # (Auto) Lymph # (Auto) Brooke # (Auto) Eos # (Auto) Baso # (Auto) Neutrophils % (Manual) Lymphocytes % (Manual) Monocytes % (Manual) Eosinophils % (Manual) Platelet Estimate Polychromasia Hypochromasia (manual) Anisocytosis (manual) Puncture Site pCO2 pO2 HCO3 ABG pH ABG Total CO2 ABG O2 Saturation ABG Base Excess ABG Hemoglobin ABG Carboxyhemoglobin POC ABG HHb (Measured) ABG Methemoglobin Ananda Test A-a O2 Difference Respiratory Index Hgb O2 Saturation FiO2 Sodium Potassium Chloride Carbon Dioxide Anion Gap BUN Creatinine Est GFR ( Amer) Est GFR (Non-Af Amer) POC Glucose (mg/dL) Random Glucose Hemoglobin A1c Calcium Total Bilirubin AST ALT Alkaline Phosphatase Total Creatine Kinase CK-MB (Mass) Troponin I NT-Pro-B Natriuret Pep Total Protein Albumin Globulin Albumin/Globulin Ratio Triglycerides Cholesterol LDL Cholesterol Direct HDL Cholesterol Free T4 0.97 TSH 3rd Generation Influenza Typ A,B (EIA) Negative for flu a/b Ur L.pneumophila Ag Cancelled Mycoplasma pneumon IgM Negative 11/25/17 11/25/17 11/25/17 11:53 12:14 13:54 WBC RBC Hgb Hct MCV MCH MCHC RDW Plt Count MPV Neut % (Auto) Lymph % (Auto) Brooke % (Auto) Eos % (Auto) Baso % (Auto) Neut # (Auto) Lymph # (Auto) Brooke # (Auto) Eos # (Auto) Baso # (Auto) Neutrophils % (Manual) Lymphocytes % (Manual) Monocytes % (Manual) Eosinophils % (Manual) Platelet Estimate Polychromasia Hypochromasia (manual) Anisocytosis (manual) Puncture Site pCO2 pO2 HCO3 ABG pH ABG Total CO2 ABG O2 Saturation ABG Base Excess ABG Hemoglobin ABG Carboxyhemoglobin POC ABG HHb (Measured) ABG Methemoglobin Ananda Test A-a O2 Difference Respiratory Index Hgb O2 Saturation FiO2 Sodium Potassium Chloride Carbon Dioxide Anion Gap BUN Creatinine Est GFR ( Amer) Est GFR (Non-Af Amer) POC Glucose (mg/dL) 156 H Random Glucose Hemoglobin A1c Calcium Total Bilirubin AST ALT Alkaline Phosphatase Total Creatine Kinase 89 89 CK-MB (Mass) 1.36 1.24 Troponin I 0.2470 H* 0.2470 H* NT-Pro-B Natriuret Pep 5990 H Total Protein Albumin Globulin Albumin/Globulin Ratio Triglycerides Cholesterol LDL Cholesterol Direct HDL Cholesterol Free T4 TSH 3rd Generation Influenza Typ A,B (EIA) Ur L.pneumophila Ag Mycoplasma pneumon IgM 11/25/17 11/25/17 11/25/17 16:09 20:10 21:03 WBC RBC Hgb Hct MCV MCH MCHC RDW Plt Count MPV Neut % (Auto) Lymph % (Auto) Brooke % (Auto) Eos % (Auto) Baso % (Auto) Neut # (Auto) Lymph # (Auto) Brooke # (Auto) Eos # (Auto) Baso # (Auto) Neutrophils % (Manual) Lymphocytes % (Manual) Monocytes % (Manual) Eosinophils % (Manual) Platelet Estimate Polychromasia Hypochromasia (manual) Anisocytosis (manual) Puncture Site Rba pCO2 43 pO2 58 L HCO3 30.8 H ABG pH 7.48 H ABG Total CO2 33.3 H ABG O2 Saturation 95.2 ABG Base Excess 7.7 H ABG Hemoglobin 11.7 ABG Carboxyhemoglobin 2.7 H POC ABG HHb (Measured) 4.6 ABG Methemoglobin 1.2 Ananda Test Pos A-a O2 Difference 38.0 Respiratory Index 0.7 Hgb O2 Saturation 91.5 L FiO2 21.0 Sodium Potassium Chloride Carbon Dioxide Anion Gap BUN Creatinine Est GFR ( Amer) Est GFR (Non-Af Amer) POC Glucose (mg/dL) 178 H 181 H Random Glucose Hemoglobin A1c Calcium Total Bilirubin AST ALT Alkaline Phosphatase Total Creatine Kinase CK-MB (Mass) Troponin I NT-Pro-B Natriuret Pep Total Protein Albumin Globulin Albumin/Globulin Ratio Triglycerides Cholesterol LDL Cholesterol Direct HDL Cholesterol Free T4 TSH 3rd Generation Influenza Typ A,B (EIA) Ur L.pneumophila Ag Mycoplasma pneumon IgM Assessment & Plan - Assessment and Plan (Free Text) Assessment: 57 yo male with past medical hx of left renal mass w/ planned left radical nephrectomy (12/2017), CHF w/ pacemaker placement, ESRD on HD asthma, HTN , DM2, sleep apnea and morbid obesity who presented with complaints of shortness of breath x2 weeks likely 2/2 pneumonia +/- CHF exacerbation. Plan: 1. Dyspnea - CT Chest showed diffuse pulm infiltrates and mild ascending thoracic aortic aneurysm 4.3cm - Lung V/Q scan showed low probability for pulm embolism - BNP is mildly elevated but at baseline is elevated from prior visits - Troponin also chronically elevated due to ESRD - ABG reviewed, doesn't show severe hypoxia - patient's symptoms are improving - continue Lasix (pt states he takes Lasix at home irregularly on days when he doesn't have HD) - daily weights and strict I/O - cont solumedrol and singulair - CPAP PRN - cont cefepime empirically - blood cultures ordered, f/u - cont duoneb zulema 2. CHF w/ PPM - reports from PMD indicated EF < 30% - cont ASA, coreg according to the COMET trial - Spironolactone recommended due to EF <35% (RALES trial), however, due to AHA/ ACCF HF guidelines, will hold due to ESRD and Cr >2.5 - ACEi recommended due to Karina-HeFT trial, however, due to AHA/ACCF HF guidelines , will hold due to ESRD - cont Hydralazine 3. ESRD on HD and DM - cont HD - strict glycemic control - planned for radical left nephrectomy due to tumor 4. sleep apnea - plan for outpatient sleep study Patient was reviewed and discussed with Dr. Presley <Fuentes Presley - Last Filed: 11/29/17 08:41> Meds - Medications Medications: Current Medications Albuterol/Ipratropium (Duoneb 3 Mg/0.5 Mg (3 Ml) Ud) 3 ml INH RQ4 [facility] Last Admin: 11/29/17 07:31 Dose: 3 ml Amlodipine Besylate (Norvasc) 5 mg PO DAILY [facility] Aspirin (Aspirin Chewable) 81 mg PO DAILY [facility] Last Admin: 11/28/17 10:50 Dose: 81 mg Azithromycin (Zithromax) 500 mg PO DAILY [facility] PRN Reason: Protocol Last Admin: 11/28/17 10:47 Dose: 500 mg Carvedilol (Coreg) 25 mg PO BID [facility] Last Admin: 11/28/17 18:03 Dose: 25 mg Dextrose (Dextrose 50% Inj) 0 ml IV STAT PRN; Protocol PRN Reason: Hypoglycemia Protocol Dextrose (Glutose 15) 0 gm PO ONCE PRN; Protocol PRN Reason: Hypoglycemia Protocol Furosemide (Lasix) 40 mg IVP BID [facility] Last Admin: 11/28/17 18:07 Dose: 40 mg Glucagon (Glucagen Diagnostic Kit) 0 mg IM STAT PRN; Protocol PRN Reason: Hypoglycemia Protocol Guaifenesin (Mucinex La) 600 mg PO Q12H [facility] Last Admin: 11/28/17 22:33 Dose: 600 mg Heparin Sodium (Porcine) (Heparin) 5,000 units SC Q12 [facility] Last Admin: 11/28/17 22:38 Dose: Not Given Hydralazine HCl (Apresoline) 100 mg PO Q8 [facility] Last Admin: 11/29/17 05:44 Dose: 100 mg Dextrose (Dextrose 5% In Water 1000 Ml) 1,000 mls @ 0 mls/hr IV .Q0M PRN; Protocol; Per Protocol PRN Reason: Hypoglycemia Protocol Cefepime HCl (Maxipime Iv 1 Gm Premix) 1 gm in 50 mls @ 100 mls/hr IVPB Q24H [facility] PRN Reason: Protocol Last Admin: 11/28/17 18:09 Dose: 100 mls/hr Insulin Aspart (Novolog) 3 unit SC AC [facility] Last Admin: 11/29/17 08:12 Dose: 3 unit Insulin Glargine (Lantus) 20 unit SC HS [facility] Last Admin: 11/28/17 22:34 Dose: 20 units Insulin Human Regular (Novolin R) 0 unit SC ACHS [facility] PRN Reason: Protocol Last Admin: 11/29/17 06:51 Dose: 12 unit Methylprednisolone (Solu-Medrol) 40 mg IVP Q12 [facility] Montelukast Sodium (Singulair) 10 mg PO HS [facility] Last Admin: 11/28/17 22:33 Dose: 10 mg Pantoprazole Sodium (Protonix Ec Tab) 40 mg PO DAILY [facility] Last Admin: 11/28/17 11:17 Dose: 40 mg Rosuvastatin Calcium (Crestor) 10 mg PO HS [facility] Last Admin: 11/28/17 22:33 Dose: 10 mg Saccharomyces Boulardii (Florastor) 250 mg PO BID [facility] Last Admin: 11/28/17 18:03 Dose: 250 mg Sevelamer Carbonate (Renvela) 800 mg PO TIDCC [facility] Last Admin: 11/29/17 08:13 Dose: 800 mg Results - Vital Signs Recent Vital Signs: Last Vital Signs Temp 98 F 11/29/17 04:20 Pulse 80 11/29/17 04:20 Resp 20 11/29/17 04:20 BP 124/68 11/29/17 04:20 Pulse Ox 97 11/28/17 23:15 - Labs Result Diagrams: 11/29/17 07:01 11/29/17 07:01 Labs: Laboratory Results - last 24 hr 11/25/17 11/25/17 11/28/17 11:45 22:21 07:45 WBC RBC Hgb Hct MCV MCH MCHC RDW Plt Count MPV Neut % (Auto) Lymph % (Auto) Brooke % (Auto) Eos % (Auto) Baso % (Auto) Neut # (Auto) Lymph # (Auto) Brooke # (Auto) Eos # (Auto) Baso # (Auto) Neutrophils % (Manual) 98 H Lymphocytes % (Manual) 1 L Monocytes % (Manual) 1 Platelet Estimate Normal Polychromasia Slight Hypochromasia (manual) Slight Anisocytosis (manual) Slight Sodium Potassium Chloride Carbon Dioxide Anion Gap BUN Creatinine Est GFR ( Amer) Est GFR (Non-Af Amer) POC Glucose (mg/dL) Random Glucose Calcium Phosphorus Magnesium Total Bilirubin AST ALT Alkaline Phosphatase Total Protein Albumin Globulin Albumin/Globulin Ratio H.influenzae Type B Ag Negative Ur L.pneumophila Ag Cancelled M.pneumoniae IgG Titer 3.80 H Mycoplasma pneumon IgM Negative N.meningitidis ACY/W135 Negative N.meningi B/E.coli K1 Ag Negative Group B Strep Antigen Negative S. pneumoniae Antigen Negative 11/28/17 11/28/17 11/28/17 12:28 17:27 21:52 WBC RBC Hgb Hct MCV MCH MCHC RDW Plt Count MPV Neut % (Auto) Lymph % (Auto) Brooke % (Auto) Eos % (Auto) Baso % (Auto) Neut # (Auto) Lymph # (Auto) Brooke # (Auto) Eos # (Auto) Baso # (Auto) Neutrophils % (Manual) Lymphocytes % (Manual) Monocytes % (Manual) Platelet Estimate Polychromasia Hypochromasia (manual) Anisocytosis (manual) Sodium Potassium Chloride Carbon Dioxide Anion Gap BUN Creatinine Est GFR ( Amer) Est GFR (Non-Af Amer) POC Glucose (mg/dL) 414 H* 354 H 406 H* Random Glucose Calcium Phosphorus Magnesium Total Bilirubin AST ALT Alkaline Phosphatase Total Protein Albumin Globulin Albumin/Globulin Ratio H.influenzae Type B Ag Ur L.pneumophila Ag M.pneumoniae IgG Titer Mycoplasma pneumon IgM N.meningitidis ACY/W135 N.meningi B/E.coli K1 Ag Group B Strep Antigen S. pneumoniae Antigen 11/29/17 11/29/17 11/29/17 06:29 07:01 07:01 WBC 10.8 RBC 3.10 L Hgb 9.4 L Hct 27.6 L MCV 89.1 MCH 30.2 MCHC 33.9 RDW 15.8 H Plt Count 121 L MPV 8.5 Neut % (Auto) 95.6 H Lymph % (Auto) 1.4 L Brooke % (Auto) 2.8 Eos % (Auto) 0.1 Baso % (Auto) 0.1 Neut # (Auto) 10.3 H Lymph # (Auto) 0.2 L Brooke # (Auto) 0.3 Eos # (Auto) 0.0 Baso # (Auto) 0.0 Neutrophils % (Manual) Lymphocytes % (Manual) Monocytes % (Manual) Platelet Estimate Polychromasia Hypochromasia (manual) Anisocytosis (manual) Sodium 131 L Potassium 5.8 H Chloride 98 Carbon Dioxide 21 L Anion Gap 19 BUN 82 H Creatinine 5.4 H Est GFR ( Amer) 13 Est GFR (Non-Af Amer) 11 POC Glucose (mg/dL) 409 H* Random Glucose 471 H* D Calcium 8.0 L Phosphorus 4.6 H Magnesium 2.1 Total Bilirubin 0.4 AST 23 ALT 36 Alkaline Phosphatase 68 Total Protein 6.0 L Albumin 3.1 L Globulin 2.8 Albumin/Globulin Ratio 1.1 H.influenzae Type B Ag Ur L.pneumophila Ag M.pneumoniae IgG Titer Mycoplasma pneumon IgM N.meningitidis ACY/W135 N.meningi B/E.coli K1 Ag Group B Strep Antigen S. pneumoniae Antigen Attending/Attestation - Attestation I have personally seen and examined this patient.: Yes I have fully participated in the care of the patient.: Yes I have reviewed all pertinent clinical information: Yes Notes (Text): 11/29/17 08:40 57 year male with known hx of NIDCMP ( Etiology ? hypertensive HD ) recent ischemic w/u -ve at primary cardiologists office presenting with acute decompensation secondary to LRTI Rx per CHF guidelines diuretics GDMT for CHF
[2017-11-25 22:39] LABS: SQUAMOUS EPITHIAL < 1 /hpf (0-5); URINE BACTERIA RARE (<OCC); URINE BILIRUBIN NEGATIVE (NEGATIVE); URINE BLOOD NEGATIVE (NEGATIVE); URINE CLARITY Clear (Clear); URINE COLOR Yellow (YELLOW); URINE GLUCOSE (UA) 1+ mg/dL (Normal); URINE LEUKOCYTE ESTERASE NEG Leu/uL (Negative); URINE PROTEIN 3+ mg/dL (NEGATIVE); URINE UROBILINOGEN NORMAL mg/dL (0.2-1.0)
[2017-11-25 23:11] LABS: CK-MB 1.1 ng/mL (0.0-3.38); TROPONIN I 0.228 ng/mL (0.00-0.120)
[2017-11-26] MEDS: Albuterol-Ipratrop 3 mg / 0.5 (3 ml) UD INH SCH ×5 (03:08→23:46)
[2017-11-26] MEDS: MethylPREDNISolone 40 mg Vial IVP SCH ×2 (05:35→06:43)
[2017-11-26] MEDS: (Novolin R) Insulin Human Regular 100 units/ml vial SC SCH ×4 (06:43→22:43)
[2017-11-26 07:22] LABS: BASO % 0.1 % (0.0-2.0); EOS % 0.1 % (0.0-4.0); HEMOGLOBIN 10.6 g/dL (12.0-18.0); LYMPH # 0.2 K/uL (1.0-4.3); LYMPH % 1.5 % (20.0-40.0); MEAN CELL VOLUME 88.7 fL (80.0-94.0); MEAN CORPUSCULAR HGB CONC 33.8 g/dL (33.0-37.0); MEAN PLATELET VOLUME 8.7 fL (7.2-11.7); MONO # 0.2 K/uL (0.0-0.8); MONO % 1.6 % (0.0-10.0); NEUT # 9.6 K/uL (1.8-7.0); NEUT % 96.7 % (50.0-75.0); PLATELET COUNT 154 K/uL (130-400); RBC 3.53 Mil/uL (4.40-5.90); WHITE BLOOD COUNT 9.9 K/uL (4.8-10.8)
--- NOTE | 2017-11-26 07:46 | CP.PCM.PN ---
Subjective - Date & Time of Evaluation Date of Evaluation: 11/26/17 Time of Evaluation: 07:46 - Subjective Subjective: Sal Allen PGY1 Cardiology Progress Note for Dr. Presley Patient was seen and examined at bedside. he is clinically improving, and has been sleeping better with the CPAP machine. he denies shortness of breath at rest, chest pain, palpitations or headaches, n/v/d. Per nurse, the patient has been refusing his insulin regimen. Patient states that he regularly has dialysis MW. Objective - Vital Signs/Intake and Output Vital Signs (last 24 hours): Temp Pulse Resp BP Pulse Ox 97.5 F L 89 20 151/80 H 93 L 11/25/17 23:05 11/26/17 01:26 11/25/17 23:05 11/25/17 23:05 11/25/17 23:05 Intake and Output: 11/26/17 11/26/17 06:59 18:59 Intake Total 500 Balance 500 - Medications Medications: Current Medications Albuterol/Ipratropium (Duoneb 3 Mg/0.5 Mg (3 Ml) Ud) 3 ml INH RQ4 [facility] Last Admin: 11/26/17 03:08 Dose: Not Given Aspirin (Aspirin Chewable) 81 mg PO DAILY [facility] Carvedilol (Coreg) 12.5 mg PO BID [facility] Last Admin: 11/25/17 17:19 Dose: 12.5 mg Dextrose (Dextrose 50% Inj) 0 ml IV STAT PRN; Protocol PRN Reason: Hypoglycemia Protocol Dextrose (Glutose 15) 0 gm PO ONCE PRN; Protocol PRN Reason: Hypoglycemia Protocol Furosemide (Lasix) 40 mg IVP BID [facility] Last Admin: 11/25/17 17:19 Dose: 40 mg Glucagon (Glucagen Diagnostic Kit) 0 mg IM STAT PRN; Protocol PRN Reason: Hypoglycemia Protocol Guaifenesin (Mucinex La) 600 mg PO Q12H [facility] Last Admin: 11/25/17 22:24 Dose: 600 mg Heparin Sodium (Porcine) (Heparin) 5,000 units SC Q12 [facility] Last Admin: 11/25/17 22:04 Dose: Not Given Hydralazine HCl (Apresoline) 100 mg PO Q8 [facility] Last Admin: 11/26/17 06:51 Dose: 100 mg Dextrose (Dextrose 5% In Water 1000 Ml) 1,000 mls @ 0 mls/hr IV .Q0M PRN; Protocol; Per Protocol PRN Reason: Hypoglycemia Protocol Cefepime HCl (Maxipime Iv 1 Gm Premix) 1 gm in 50 mls @ 100 mls/hr IVPB Q24H [facility] PRN Reason: Protocol Last Admin: 11/25/17 19:24 Dose: 100 mls/hr Insulin Human Regular (Novolin R) 0 unit SC ACHS [facility] PRN Reason: Protocol Last Admin: 11/26/17 06:43 Dose: 6 unit Methylprednisolone (Solu-Medrol) 40 mg IVP Q8H [facility] Last Admin: 11/26/17 06:43 Dose: 40 mg Montelukast Sodium (Singulair) 10 mg PO HS [facility] Last Admin: 11/25/17 21:59 Dose: 10 mg Pantoprazole Sodium (Protonix Ec Tab) 40 mg PO DAILY [facility] Last Admin: 11/25/17 10:39 Dose: 40 mg Rosuvastatin Calcium (Crestor) 10 mg PO HS [facility] Last Admin: 11/25/17 22:24 Dose: 10 mg Sevelamer Carbonate (Renvela) 800 mg PO TIDCC [facility] Last Admin: 11/25/17 17:19 Dose: 800 mg - Labs Labs: 11/26/17 07:11 11/25/17 06:22 - Additional Findings Additional findings: - Constitutional Appears: Well, Non-toxic, No Acute Distress - Head Exam Head Exam: NORMAL INSPECTION - Eye Exam Eye Exam: Normal appearance Pupil Exam: NORMAL ACCOMODATION - ENT Exam ENT Exam: Mucous Membranes Moist - Neck Exam Neck exam: Positive for: Normal Inspection - Respiratory Exam Respiratory Exam: Clear to auscultation, NORMAL BREATHING PATTERN. absent: Rhonchi, Wheezes, Rales - Cardiovascular Exam Cardiovascular Exam: RRR, +S1, +S2 - GI/Abdominal Exam GI & Abdominal Exam: Normal Bowel Sounds, Soft. absent: Distended, Tenderness - Extremities Exam Extremities exam: Positive for: normal inspection. absent: Pedal Edema - Back Exam Back exam: NORMAL INSPECTION - Neurological Exam Neurological exam: Alert - Psychiatric Exam Psychiatric exam: Normal Affect, Normal Mood - Skin Skin Exam: Normal Color Assessment & Plan - Assessment and Plan (Free Text) Assessment: 57 yo male with past medical hx of left renal mass w/ planned left radical nephrectomy (12/2017), CHF w/ pacemaker placement, ESRD on HD asthma, HTN , DM2, sleep apnea and morbid obesity who presented with complaints of shortness of breath x2 weeks likely 2/2 pneumonia +/- CHF exacerbation. Plan: 1. Dyspnea - CT Chest showed diffuse pulm infiltrates and mild ascending thoracic aortic aneurysm 4.3cm - Lung V/Q scan showed low probability for pulm embolism - BNP is mildly elevated but at baseline is elevated from prior visits - Troponin also chronically elevated due to ESRD - ABG reviewed, doesn't show severe hypoxia - patient's symptoms are improving - continue Lasix (pt states he takes Lasix at home irregularly on days when he doesn't have HD) - daily weights and strict I/O - cont singulair - should decrease solumedrol dose given hyperglycemia and no wheezing/dyspnea at rest - CPAP PRN - cont cefepime empirically - blood cultures ordered, f/u - cont duoneb [facility] 2. CHF w/ PPM - reports from PMD indicated EF < 30% - cont ASA, coreg according to the COMET trial - Spironolactone recommended due to EF <35% (RALES trial), however, due to AHA/ ACCF HF guidelines, will hold due to ESRD and Cr >2.5 - ACEi recommended due to Karina-HeFT trial, however, due to AHA/ACCF HF guidelines , will hold due to ESRD - cont Hydralazine 3. ESRD on HD and DM - cont HD - strict glycemic control - planned for radical left nephrectomy due to tumor 4. sleep apnea - plan for outpatient sleep study - cont on CPAP machine PRN sleep Patient was reviewed and discussed with Dr. Presley
[2017-11-26 08:07] LABS: ALB/GLOB RATIO 1.1 (1.0-2.1); ALBUMIN 3.4 g/dL (3.5-5.0); CALCIUM 7.8 mg/dl (8.6-10.4)
[2017-11-26] MEDS: Pantoprazole 40 mg EC Tab PO SCH (09:39)
[2017-11-26] MEDS ORDERED: (Novolog) Insulin Aspart, Recombinant 100 u/ml 10 ml vial SC ONE (09:45)
--- NOTE | 2017-11-26 10:05 | CP.PCM.PN ---
Subjective - Date & Time of Evaluation Date of Evaluation: 11/26/17 Time of Evaluation: 10:05 - Subjective Subjective: pt is seen and examined, follow up consult is dictated #[id number] s/p hd yesterday, had a uf about 3.4 llit Objective - Vital Signs/Intake and Output Vital Signs (last 24 hours): Temp Pulse Resp BP Pulse Ox 98.0 F 88 18 173/76 H 95 11/26/17 07:40 11/26/17 08:48 11/26/17 07:40 11/26/17 09:39 11/26/17 07:40 Intake and Output: 11/26/17 11/26/17 06:59 18:59 Intake Total 500 0 Balance 500 0 - Medications Medications: Current Medications Albuterol/Ipratropium (Duoneb 3 Mg/0.5 Mg (3 Ml) Ud) 3 ml INH RQ4 [facility] Last Admin: 11/26/17 08:32 Dose: 3 ml Aspirin (Aspirin Chewable) 81 mg PO DAILY [facility] Last Admin: 11/26/17 09:40 Dose: 81 mg Carvedilol (Coreg) 12.5 mg PO BID [facility] Last Admin: 11/26/17 09:39 Dose: 12.5 mg Dextrose (Dextrose 50% Inj) 0 ml IV STAT PRN; Protocol PRN Reason: Hypoglycemia Protocol Dextrose (Glutose 15) 0 gm PO ONCE PRN; Protocol PRN Reason: Hypoglycemia Protocol Furosemide (Lasix) 40 mg IVP BID [facility] Last Admin: 11/26/17 09:39 Dose: 40 mg Glucagon (Glucagen Diagnostic Kit) 0 mg IM STAT PRN; Protocol PRN Reason: Hypoglycemia Protocol Guaifenesin (Mucinex La) 600 mg PO Q12H [facility] Last Admin: 11/25/17 22:24 Dose: 600 mg Heparin Sodium (Porcine) (Heparin) 5,000 units SC Q12 [facility] Last Admin: 11/26/17 09:39 Dose: 5,000 units Hydralazine HCl (Apresoline) 100 mg PO Q8 [facility] Last Admin: 11/26/17 06:51 Dose: 100 mg Dextrose (Dextrose 5% In Water 1000 Ml) 1,000 mls @ 0 mls/hr IV .Q0M PRN; Protocol; Per Protocol PRN Reason: Hypoglycemia Protocol Cefepime HCl (Maxipime Iv 1 Gm Premix) 1 gm in 50 mls @ 100 mls/hr IVPB Q24H [facility] PRN Reason: Protocol Last Admin: 11/25/17 19:24 Dose: 100 mls/hr Insulin Human Regular (Novolin R) 0 unit SC ACHS [facility] PRN Reason: Protocol Methylprednisolone (Solu-Medrol) 40 mg IVP Q8H [facility] Last Admin: 11/26/17 06:43 Dose: 40 mg Montelukast Sodium (Singulair) 10 mg PO HS [facility] Last Admin: 11/25/17 21:59 Dose: 10 mg Pantoprazole Sodium (Protonix Ec Tab) 40 mg PO DAILY [facility] Last Admin: 11/26/17 09:39 Dose: 40 mg Rosuvastatin Calcium (Crestor) 10 mg PO HS [facility] Last Admin: 11/25/17 22:24 Dose: 10 mg Sevelamer Carbonate (Renvela) 800 mg PO TIDCC [facility] Last Admin: 11/26/17 09:41 Dose: 800 mg - Labs Labs: 11/26/17 07:11 11/26/17 07:11
[2017-11-26 10:51] LABS: ANISOCYTOSIS SLIGHT; LYMPHOCYTE 1 % (20-40); MONOCYTE 1 % (0-10); NEUTROPHIL 98 % (50-75); PLATELET ESTIMATE NORMAL (NORMAL); TOTAL CELLS COUNTED 100
[2017-11-26 10:52] LABS: HYPOCHROMIC SLIGHT; POLYCHROMIC SLIGHT; TOXIC GRANULATION PRESENT
--- NOTE | 2017-11-26 11:29 | CP.PCM.PN ---
<Natasha Cummins - Last Filed: 11/26/17 15:21> Subjective - Date & Time of Evaluation Date of Evaluation: 11/26/17 Time of Evaluation: 11:13 - Subjective Subjective: Progress Note for Dr. Lin Patient seen and examined at bedside. Patient states he feels better. A long conversation was had with education about diabetes and foods high in carbohydrates. Objective - Vital Signs/Intake and Output Vital Signs (last 24 hours): Temp Pulse Resp BP Pulse Ox 98.0 F 88 18 173/76 H 95 11/26/17 07:40 11/26/17 08:48 11/26/17 07:40 11/26/17 09:39 11/26/17 07:40 Intake and Output: 11/26/17 11/26/17 06:59 18:59 Intake Total 500 0 Balance 500 0 - Medications Medications: Current Medications Albuterol/Ipratropium (Duoneb 3 Mg/0.5 Mg (3 Ml) Ud) 3 ml INH RQ4 [facility] Last Admin: 11/26/17 08:32 Dose: 3 ml Aspirin (Aspirin Chewable) 81 mg PO DAILY [facility] Last Admin: 11/26/17 09:40 Dose: 81 mg Carvedilol (Coreg) 12.5 mg PO BID [facility] Last Admin: 11/26/17 09:39 Dose: 12.5 mg Dextrose (Dextrose 50% Inj) 0 ml IV STAT PRN; Protocol PRN Reason: Hypoglycemia Protocol Dextrose (Glutose 15) 0 gm PO ONCE PRN; Protocol PRN Reason: Hypoglycemia Protocol Furosemide (Lasix) 40 mg IVP BID [facility] Last Admin: 11/26/17 09:39 Dose: 40 mg Glucagon (Glucagen Diagnostic Kit) 0 mg IM STAT PRN; Protocol PRN Reason: Hypoglycemia Protocol Guaifenesin (Mucinex La) 600 mg PO Q12H [facility] Last Admin: 11/25/17 22:24 Dose: 600 mg Heparin Sodium (Porcine) (Heparin) 5,000 units SC Q12 [facility] Last Admin: 11/26/17 09:39 Dose: 5,000 units Hydralazine HCl (Apresoline) 100 mg PO Q8 [facility] Last Admin: 11/26/17 06:51 Dose: 100 mg Dextrose (Dextrose 5% In Water 1000 Ml) 1,000 mls @ 0 mls/hr IV .Q0M PRN; Protocol; Per Protocol PRN Reason: Hypoglycemia Protocol Cefepime HCl (Maxipime Iv 1 Gm Premix) 1 gm in 50 mls @ 100 mls/hr IVPB Q24H [facility] PRN Reason: Protocol Last Admin: 11/25/17 19:24 Dose: 100 mls/hr Insulin Human Regular (Novolin R) 0 unit SC ACHS [facility] PRN Reason: Protocol Methylprednisolone (Solu-Medrol) 40 mg IVP Q8H [facility] Last Admin: 11/26/17 06:43 Dose: 40 mg Montelukast Sodium (Singulair) 10 mg PO [facility] Last Admin: 11/25/17 21:59 Dose: 10 mg Pantoprazole Sodium (Protonix Ec Tab) 40 mg PO DAILY [facility] Last Admin: 11/26/17 09:39 Dose: 40 mg Rosuvastatin Calcium (Crestor) 10 mg PO HS [facility] Last Admin: 11/25/17 22:24 Dose: 10 mg Sevelamer Carbonate (Renvela) 800 mg PO TIDCC [facility] Last Admin: 11/26/17 09:41 Dose: 800 mg - Labs Labs: 11/26/17 07:11 11/26/17 07:11 - Additional Findings Additional findings: - Constitutional Appears: Non-toxic, No Acute Distress, Chronically Ill - Head Exam Head Exam: ATRAUMATIC, NORMAL INSPECTION, NORMOCEPHALIC - Eye Exam Eye Exam: EOMI - ENT Exam ENT Exam: Mucous Membranes Moist - Neck Exam Neck exam: Positive for: Full Rom, Normal Inspection - Respiratory Exam Respiratory Exam: Rales. absent: Respiratory Distress - Cardiovascular Exam Cardiovascular Exam: REGULAR RHYTHM, +S1, +S2 Additional comments: no JVD; no S3 - GI/Abdominal Exam GI & Abdominal Exam: Distended. absent: Guarding, Tenderness - Extremities Exam Extremities exam: Positive for: full ROM, pedal edema - Back Exam Back exam: NORMAL INSPECTION - Neurological Exam Neurological exam: Alert, CN II-XII Intact, Oriented x3 - Psychiatric Exam Psychiatric exam: Normal Affect, Normal Mood - Skin Skin Exam: Dry, Intact, Normal Color, Warm - Additional Findings Additional findings: - Constitutional Appears: Non-toxic, No Acute Distress, Chronically Ill - Head Exam Head Exam: ATRAUMATIC, NORMAL INSPECTION, NORMOCEPHALIC - Eye Exam Eye Exam: EOMI - ENT Exam ENT Exam: Mucous Membranes Moist - Neck Exam Neck exam: Positive for: Full Rom, Normal Inspection - Respiratory Exam Respiratory Exam: Rales. absent: Respiratory Distress - Cardiovascular Exam Cardiovascular Exam: REGULAR RHYTHM, +S1, +S2 Additional comments: no JVD; no S3 - GI/Abdominal Exam GI & Abdominal Exam: Distended. absent: Guarding, Tenderness - Extremities Exam Extremities exam: Positive for: full ROM, pedal edema snuffbox radio-cephalic AVF - Back Exam Back exam: NORMAL INSPECTION - Neurological Exam Neurological exam: Alert, CN II-XII Intact, Oriented x3 - Psychiatric Exam Psychiatric exam: Normal Affect, Normal Mood - Skin Skin Exam: Dry, Intact, Normal Color, Warm Assessment and Plan - Assessment and Plan (Free Text) Assessment: CHF CT Chest showed diffuse pulm infiltrates and mild ascending thoracic aortic aneurysm 4.3cm - Lung V/Q scan showed low probability for pulm embolism elevated Troponin I x 1 Cardiology Consult: Dr. Presley PMD notes on EF of recent echo show EF <30% pacemaker placed after July 15, 2017 echo copies of nuclear stress test and echo ordered. 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 Klein ESRD temp catheter and snuff box AVF 11/25 received dialysis today. Renal mass f/u removal December [address] Riley Cummins, DO PGY1 <Rosangela Lin V - Last Filed: 11/27/17 11:55> Objective - Vital Signs/Intake and Output Vital Signs (last 24 hours): Temp Pulse Resp BP Pulse Ox 97.5 F L 78 18 146/77 100 11/27/17 07:00 11/27/17 08:04 11/27/17 07:00 11/27/17 10:56 11/27/17 07:00 Intake and Output: 11/27/17 11/27/17 06:59 18:59 Intake Total 650 Balance 650 - Medications Medications: Current Medications Albuterol/Ipratropium (Duoneb 3 Mg/0.5 Mg (3 Ml) Ud) 3 ml INH RQ4 [facility] Last Admin: 11/27/17 08:07 Dose: Not Given Aspirin (Aspirin Chewable) 81 mg PO DAILY [facility] Last Admin: 11/27/17 10:56 Dose: 81 mg Carvedilol (Coreg) 25 mg PO BID [facility] Last Admin: 11/27/17 10:55 Dose: 25 mg Dextrose (Dextrose 50% Inj) 0 ml IV STAT PRN; Protocol PRN Reason: Hypoglycemia Protocol Dextrose (Glutose 15) 0 gm PO ONCE PRN; Protocol PRN Reason: Hypoglycemia Protocol Furosemide (Lasix) 40 mg IVP BID [facility] Last Admin: 11/27/17 10:56 Dose: 40 mg Glucagon (Glucagen Diagnostic Kit) 0 mg IM STAT PRN; Protocol PRN Reason: Hypoglycemia Protocol Guaifenesin (Mucinex La) 600 mg PO Q12H [facility] Last Admin: 11/26/17 22:39 Dose: 600 mg Heparin Sodium (Porcine) (Heparin) 5,000 units SC Q12 [facility] Last Admin: 11/27/17 10:57 Dose: 5,000 units Hydralazine HCl (Apresoline) 100 mg PO Q8 [facility] Last Admin: 11/27/17 05:38 Dose: 100 mg Dextrose (Dextrose 5% In Water 1000 Ml) 1,000 mls @ 0 mls/hr IV .Q0M PRN; Protocol; Per Protocol PRN Reason: Hypoglycemia Protocol Cefepime HCl (Maxipime Iv 1 Gm Premix) 1 gm in 50 mls @ 100 mls/hr IVPB Q24H [facility] PRN Reason: Protocol Last Admin: 11/26/17 18:49 Dose: 100 mls/hr Insulin Glargine (Lantus) 10 unit SC HS [facility] Last Admin: 11/26/17 22:44 Dose: 10 units Insulin Human Regular (Novolin R) 0 unit SC ACHS [facility] PRN Reason: Protocol Last Admin: 11/27/17 08:30 Dose: 2 unit Montelukast Sodium (Singulair) 10 mg PO HS [facility] Last Admin: 11/26/17 22:40 Dose: 10 mg Pantoprazole Sodium (Protonix Ec Tab) 40 mg PO DAILY [facility] Last Admin: 11/27/17 10:56 Dose: 40 mg Rosuvastatin Calcium (Crestor) 10 mg PO HS [facility] Last Admin: 11/26/17 22:39 Dose: 10 mg Sevelamer Carbonate (Renvela) 800 mg PO TIDCC [facility] Last Admin: 11/27/17 11:23 Dose: 800 mg - Labs Labs: 11/27/17 10:55 11/27/17 10:55 Attending/Attestation - Attestation I have personally seen and examined this patient.: Yes I have fully participated in the care of the patient.: Yes I have reviewed all pertinent clinical information, including history, physical exam and plan: Yes Notes (Text): This is late computer entry for 11/26/17. Patient seen, examined and case discussed with day-time resident. Patient completed dialysis yesterdary, reports his breathing is better, reports continues to cough. Patient switched to IV antibiotics to cover for hospital/ healthcare associated pneumonia. We had discussed regarding diet and exercise recommendations. Blood pressure remains uncontrolled in spite of dialysis session yesterday. Coreg increased to 25mg PO BID. Added lantus 10 units subHS given hyperglycemia. Hyperglycemia attributed to IV steroids. We will continue to work with pulmonary/cardiology/nephrology to reduce fluid overload state and treat for pneumonia. Assessment/Plan 1) Fluid Overload * Contributing factors: ESRD (T//Wed), Cardiomyopathy, Obesity, history of noncompliance 2) Cardiomyopathy with PPM EF <30% Nonstemi * Cardiology Consult: Dr. Presley on board help appreciated * Per prior workup from his vendor manager (Dr. Harmony Brown office) * Echocardiogram (08/10/17): EF: 27 percent w. mild aortic stenos and small ASD w / right to left shunt * LHC (08/05/17): no ischemic CAD * Spironolactone recommended due to EF <35% (RALES trial), however, due to AHA/ ACCF HF guidelines, will hold due to ESRD and Cr >2.5 * ACEi recommended due to Karina-HeFT trial, however, due to AHA/ACCF HF guidelines , will hold due to ESRD * elevated troponin attributed to ESRD * Fluid restriction * intake and outputs * Aspirin 81mg PO daily * Coreg 25 mg PO BID * Crestor 10mg POqHS 3) Pneumonia * Pulmonary (Dr. Klein) on board-->help appreciated * c/w Cefepime 1 gram IV Q24H (Active since 11/25/17) * c/w Azithromycin 500mg IV daily * CT Chest (11/25/17): widespread diffuse pulmonary infiltrates are appreciate with subtle ground-glass component likely reflecting pneumonia no inflammatory process is not excluded. No significant lymphadenopathy grossly evident in this unenhanced exam. Pulmonary artery hypertension is in question. Mild ascending thoracic aneurysm 4.3 cm greatest dimension terminating at the anterior arch * V/Q scan (11/25/17): low probability ventilation perfusion scan for pulmonary embolism * Patient refused repeat ABG for today (11/26/17) * f/u legionella-->cancelled, Legionella: cancelled Mycoplasma Igm: negative * d/c Solumedrol 40mg IVP Q8H on 11/26/17 * Mucinex 600mg PO BID * Duoneb 3cc INH Q4H [facility] * Singulair 10mg PO qHS * Blood Culture (11/24/17): no growth * Blood culture (11/25/17): no growth 4) History of Sleep apnea * CPAP at night * Recommend sleep study outpatient to qualify for CPAP-->will f/u with Dr. Klein when stable 5) ESRD (//wed) * Nephrology consult (Dr. Boswell) on consult * ESRD (Wednesday//Wednesday) * Patient had about 3.4 Liters removed yesterday * Renvela 800mg PO TIDCC 6) Left known Renal Mass * Patient scheduled for December [address] Sydney Bartlett 7) Diabetes * Patient refused accuchecks * a1c: 6.6 * Regular insulin sliding scale subq * Lantus 10mg units subqHS * Hypoglycemic protocol 8) Uncontrolled Hypertension secondary to fluid overload * Hydralazine 100mg PO Q8H * increased Coreg 25mg PO BID * LAsix 40mg IV Q12H * Dialysis on Wednesday//Saturdays 9) Asthma * Duonebs every 4hours * d/c Solumedrol 40mg IVP Q8H on 11/26/17 * Mucinex 600mg PO BID * Duoneb 3cc INH Q4H [facility] * Singulair 10mg PO qHS 10) Prophylactic care * Heparin 5000 units [id number] * Protonix 40mg PO daily
[2017-11-26] MEDS: guaiFENesin 600 mg ER Tab PO SCH ×2 (12:38→22:39)
--- NOTE | 2017-11-26 13:04 | CP.PCM.PN ---
Subjective - Date & Time of Evaluation Date of Evaluation: 11/26/17 Time of Evaluation: 12:35 - Subjective Subjective: Patient seen and examined at bedside today. Patient was awake and resting comfortably in bed. Patient states he is feeling better today. Patient is noted to still have lower leg edema. Assessment/Plan: 1. Pneumonia -WBC improvin.9 - Continue Duoneb - Continue Cefepime - Continue Solumedrol 2. Obstructive Sleep Apnea - Continue CPAP - Recommend sleep study outpatient to qualify for CPAP 3. End-Stage Renal Disease - Dialysis yesterday - Management per Primary Team 4. HTN - Management per Primary Team 5. Diabetes Mellitus - Management per primary team Objective - Vital Signs/Intake and Output Vital Signs (last 24 hours): Temp Pulse Resp BP Pulse Ox 98.0 F 88 18 173/76 H 95 11/26/17 07:40 11/26/17 08:48 11/26/17 07:40 11/26/17 09:39 11/26/17 07:40 Intake and Output: 11/26/17 11/26/17 06:59 18:59 Intake Total 500 0 Balance 500 0 - Medications Medications: Current Medications Albuterol/Ipratropium (Duoneb 3 Mg/0.5 Mg (3 Ml) Ud) 3 ml INH RQ4 [facility] Last Admin: 11/26/17 11:14 Dose: Not Given Aspirin (Aspirin Chewable) 81 mg PO DAILY [facility] Last Admin: 11/26/17 09:40 Dose: 81 mg Carvedilol (Coreg) 25 mg PO BID [facility] Dextrose (Dextrose 50% Inj) 0 ml IV STAT PRN; Protocol PRN Reason: Hypoglycemia Protocol Dextrose (Glutose 15) 0 gm PO ONCE PRN; Protocol PRN Reason: Hypoglycemia Protocol Furosemide (Lasix) 40 mg IVP BID [facility] Last Admin: 11/26/17 09:39 Dose: 40 mg Glucagon (Glucagen Diagnostic Kit) 0 mg IM STAT PRN; Protocol PRN Reason: Hypoglycemia Protocol Guaifenesin (Mucinex La) 600 mg PO Q12H [facility] Last Admin: 11/26/17 12:38 Dose: Not Given Heparin Sodium (Porcine) (Heparin) 5,000 units SC Q12 [facility] Last Admin: 11/26/17 09:39 Dose: 5,000 units Hydralazine HCl (Apresoline) 100 mg PO Q8 [facility] Last Admin: 11/26/17 06:51 Dose: 100 mg Dextrose (Dextrose 5% In Water 1000 Ml) 1,000 mls @ 0 mls/hr IV .Q0M PRN; Protocol; Per Protocol PRN Reason: Hypoglycemia Protocol Cefepime HCl (Maxipime Iv 1 Gm Premix) 1 gm in 50 mls @ 100 mls/hr IVPB Q24H [facility] PRN Reason: Protocol Last Admin: 11/25/17 19:24 Dose: 100 mls/hr Insulin Glargine (Lantus) 10 unit SC HS [facility] Insulin Human Regular (Novolin R) 0 unit SC ACHS [facility] PRN Reason: Protocol Last Admin: 11/26/17 12:49 Dose: 6 unit Methylprednisolone (Solu-Medrol) 40 mg IVP Q8H [facility] Last Admin: 11/26/17 06:43 Dose: 40 mg Montelukast Sodium (Singulair) 10 mg PO HS [facility] Last Admin: 11/25/17 21:59 Dose: 10 mg Pantoprazole Sodium (Protonix Ec Tab) 40 mg PO DAILY [facility] Last Admin: 11/26/17 09:39 Dose: 40 mg Rosuvastatin Calcium (Crestor) 10 mg PO HS [facility] Last Admin: 11/25/17 22:24 Dose: 10 mg Sevelamer Carbonate (Renvela) 800 mg PO TIDCC [facility] Last Admin: 11/26/17 12:50 Dose: 800 mg - Labs Labs: 11/26/17 07:11 11/26/17 07:11
--- NOTE | 2017-11-26 15:48 | PN ---
DATE: 11/26/2017 FOLLOWUP RENAL CONSULTATION LOCATION: The patient is located in room 662, bed A. REQUESTED BY: Rosangela Lin DO REASON FOR FOLLOWUP: End-stage renal disease, CHF, and pneumonia. SUBJECTIVE: Mr. Mehta is a 57-year-old obese male with history of longstanding hypertension, diabetes, asthma, COPD, end-stage renal disease, cardiomyopathy, status post AICD placement with left renal mass, scheduled for surgery on 12/14/[address] Bartlett, [employer], left questionable partial nephrectomy versus nephrectomy, who was admitted with chief complaints of cough, shortness of breath for the last 4 to 5 days. The patient is noncompliant with fluid intake. The patient underwent hemodialysis yesterday, had ultrafiltration about 3.4 liters. The patient is feeling slightly better, still complains of cough and dyspnea on exertion. No nausea, no vomiting. PHYSICAL EXAMINATION: VITAL SIGNS: As follows: Blood pressure this morning 173/76, pulse 78, respirations 18, temperature 98, saturation 95%. Height 5 feet 6 inches, weight is 291 pounds. GENERAL: Mr. Mehta is a 57-year-old obese male, well-built, well-nourished, not in distress. HEENT: Pupils normal and reactive to light and accommodation. Conjunctivae pink. Sclerae anicteric. Tongue is moist and trachea is midline. LUNGS: Symmetric on both sides. Bilateral breath sounds present. Occasional expiratory wheeze present. CVS: [place] at the fifth intercostal space, midclavicular line. S1, S2 audible. No murmur, no gallop. ABDOMEN: Normal in appearance, soft, tympanic. No guarding. No rigidity. No hepatosplenomegaly. MEMBER SERVICE REPRESENTATIVE: The patient is alert, awake, and oriented x3. Nonfocal neuro examination. Cranial nerves II through XII grossly intact. Sensory and motor system is within normal limits. EXTREMITIES: No cyanosis, no clubbing, no edema. CURRENT MEDICATIONS: Include as follows: Hydralazine 100 mg p.o. every 8 hours, aspirin 81 mg daily, Coreg 25 mg p.o. b.i.d., Crestor 10 mg at bedtime, DuoNeb inhaler, subcu heparin 5000 units every 12 hours, Lasix 40 mg IV b.i.d., cefepime 1 gm every 24 hours, Mucinex 600 mg p.o. every 12 hours, Novolin R for sliding scale, Protonix 40 mg p.o. daily, Renvela 800 mg p.o. t.i.d., Singulair 10 mg p.o. at bedtime, and Solu-Medrol 40 mg IV every 8 hours. LABORATORY DATA: Include as follows: As of 11/26/2017, WBC 9.9, hemoglobin 10.6, hematocrit is 31.3, platelets 154. ABG as of 11/25/2017, pH 7.48, pCO2 43, pO2 58, bicarb is 30.8, and saturation 95.2. Chem-7 as of 11/26/2017, sodium 134, potassium 4.9, chloride 93, CO2 26, BUN 63, creatinine 4.5, glucose 458, calcium 7.8, phosphorus 4.7, magnesium 1.8. Total bili 0.9, AST 26, ALT 38, alkaline phosphatase 76. Troponin 0.247, 0.247, and 0.228, and total protein 6.5, albumin is 3.4. Procalcitonin as of 11/25/2017 is 1.39. As of 11/25/2017, urinalysis: Yellow, clear, pH 7, specific gravity 1.011, protein 3+, glucose 1+, ketones negative, blood negative, nitrites negative, bilirubin negative, urobilinogen normal, leukocyte esterase negative, wbc 1, rbc less than 1. Serum mycoplasma antibody negative. ASSESSMENT AND PLAN: In summary, Mr. Mehta is a 57-year-old obese male with history of hypertension, diabetes, asthma, chronic obstructive pulmonary disease, cardiomyopathy, left renal mass, end-stage renal disease, on hemodialysis two times a week, noncompliant with fluid intake, was admitted with cough, shortness of breath, and low-grade fever for 5 days, and found to have bilateral alveolar opacities. 1. End-stage renal disease. Continue hemodialysis two times a week and the patient was given extra hemodialysis yesterday due to shortness of breath. 2. Congestive heart failure. 3. Pneumonia. 4. Hypertension. 5. of asthma, rule out chronic obstructive pulmonary disease. Continue to restrict fluids 1.4 liters per day and we will schedule for hemodialysis again on Wednesday and continue antibiotics as per the primary team and continue DuoNeb inhaler, Singulair, and Solu-Medrol as per Pulmonary recommendations. The patient is requesting Bilevel Positive Airway Pressure or continuous positive airway pressure machine at home. Pulmonary to evaluate. We will follow with you. Thank you for allowing me to participate in your patient's care. Talya Vogel MD
--- NOTE | 2017-11-26 17:17 | CP.PCM.PN ---
Subjective - Date & Time of Evaluation Date of Evaluation: 11/26/17 Time of Evaluation: 09:00 - Subjective Subjective: afeb on IV rx Objective - Vital Signs/Intake and Output Vital Signs (last 24 hours): Temp Pulse Resp BP Pulse Ox 98.0 F 88 18 173/76 H 95 11/26/17 07:40 11/26/17 08:48 11/26/17 07:40 11/26/17 09:39 11/26/17 07:40 Intake and Output: 11/26/17 11/26/17 06:59 18:59 Intake Total 500 0 Balance 500 0 - Medications Medications: Current Medications Albuterol/Ipratropium (Duoneb 3 Mg/0.5 Mg (3 Ml) Ud) 3 ml INH RQ4 [facility] Last Admin: 11/26/17 11:14 Dose: Not Given Aspirin (Aspirin Chewable) 81 mg PO DAILY [facility] Last Admin: 11/26/17 09:40 Dose: 81 mg Carvedilol (Coreg) 25 mg PO BID [facility] Dextrose (Dextrose 50% Inj) 0 ml IV STAT PRN; Protocol PRN Reason: Hypoglycemia Protocol Dextrose (Glutose 15) 0 gm PO ONCE PRN; Protocol PRN Reason: Hypoglycemia Protocol Furosemide (Lasix) 40 mg IVP BID [facility] Last Admin: 11/26/17 09:39 Dose: 40 mg Glucagon (Glucagen Diagnostic Kit) 0 mg IM STAT PRN; Protocol PRN Reason: Hypoglycemia Protocol Guaifenesin (Mucinex La) 600 mg PO Q12H [facility] Last Admin: 11/26/17 12:38 Dose: Not Given Heparin Sodium (Porcine) (Heparin) 5,000 units SC Q12 [facility] Last Admin: 11/26/17 09:39 Dose: 5,000 units Hydralazine HCl (Apresoline) 100 mg PO Q8 [facility] Last Admin: 11/26/17 14:29 Dose: Not Given Dextrose (Dextrose 5% In Water 1000 Ml) 1,000 mls @ 0 mls/hr IV .Q0M PRN; Protocol; Per Protocol PRN Reason: Hypoglycemia Protocol Cefepime HCl (Maxipime Iv 1 Gm Premix) 1 gm in 50 mls @ 100 mls/hr IVPB Q24H [facility] PRN Reason: Protocol Last Admin: 11/25/17 19:24 Dose: 100 mls/hr Insulin Glargine (Lantus) 10 unit SC [facility] Insulin Human Regular (Novolin R) 0 unit SC [facility] PRN Reason: Protocol Last Admin: 11/26/17 17:12 Dose: Not Given Montelukast Sodium (Singulair) 10 mg PO [facility] Last Admin: 11/25/17 21:59 Dose: 10 mg Pantoprazole Sodium (Protonix Ec Tab) 40 mg PO DAILY [facility] Last Admin: 11/26/17 09:39 Dose: 40 mg Rosuvastatin Calcium (Crestor) 10 mg PO [facility] Last Admin: 11/25/17 22:24 Dose: 10 mg Sevelamer Carbonate (Renvela) 800 mg PO TIDCC [facility] Last Admin: 11/26/17 12:50 Dose: 800 mg - Labs Labs: 11/26/17 07:11 11/26/17 07:11 - Constitutional Appears: Chronically Ill - Head Exam Head Exam: ATRAUMATIC, NORMAL INSPECTION, NORMOCEPHALIC - Eye Exam Eye Exam: EOMI, Normal appearance, PERRL Pupil Exam: NORMAL ACCOMODATION, PERRL - ENT Exam ENT Exam: Mucous Membranes Moist, Normal Exam - Neck Exam Neck Exam: Full ROM, Normal Inspection. absent: Lymphadenopathy - Respiratory Exam Respiratory Exam: Decreased Breath Sounds, Prolonged Expiratory Phase - Cardiovascular Exam Cardiovascular Exam: REGULAR RHYTHM, +S1, +S2. absent: Murmur - GI/Abdominal Exam GI & Abdominal Exam: Soft, Normal Bowel Sounds. absent: Tenderness - Rectal Exam Rectal Exam: NORMAL INSPECTION - Exam Exam: Circumcision, NORMAL INSPECTION External exam: NORMAL EXTERNAL EXAM Speculum exam: NORMAL SPECULUM EXAM Bimanual exam: NORMAL BIMANUAL EXAM - Extremities Exam Extremities Exam: Full ROM, Normal Capillary Refill, Normal Inspection. absent : Joint Swelling, Pedal Edema - Back Exam Back Exam: NORMAL INSPECTION - Neurological Exam Neurological Exam: Alert, Awake, CN II-XII Intact, Normal Gait, Oriented x3 - Psychiatric Exam Psychiatric exam: Normal Affect, Normal Mood - Skin Skin Exam: Dry, Intact, Normal Color, Warm Assessment and Plan (1) Pneumonia Status: Acute (2) Renal failure Status: Acute (3) Anemia Status: Acute (4) Chronic congestive heart failure Status: Acute (5) Dyspnea Status: Acute (6) Elevated troponin Status: Acute (7) Hypertension Status: Acute (8) Left against medical advice Status: Acute - Assessment and Plan (Free Text) Assessment: cont iv rx for now all cultures neg thus far had septic presentation and received antibiotics before AMA consider empiric 7 day course
[2017-11-26] MEDS: Cefepime IV 1 gm in Dextrose 1 GM/50 ML BAG IVPB SCH (18:49)
[2017-11-26] MEDS: (Lantus) Insulin Glargine, Recombinant SC SCH (22:44)
--- NOTE | 2017-11-27 02:55 | CARD ---
APPROVED REPORT EKG Measurement Heart [id number] <Conclusion> Normal sinus rhythm with sinus arrhythmia Possible Left atrial enlargement Prolonged QT Abnormal ECG
--- NOTE | 2017-11-27 03:12 | CARD ---
APPROVED REPORT EKG Measurement Heart [id number] <Conclusion> Normal sinus rhythm Possible Left atrial enlargement Borderline ECG
[2017-11-27] MEDS: Albuterol-Ipratrop 3 mg / 0.5 (3 ml) UD INH SCH ×7 (03:14→20:34)
[2017-11-27] MEDS: (Novolin R) Insulin Human Regular 100 units/ml vial SC SCH ×4 (08:30→22:00)
[2017-11-27] MEDS: Pantoprazole 40 mg EC Tab PO SCH (10:56)
[2017-11-27 11:04] LABS: BASO % 0.3 % (0.0-2.0); EOS # 0.2 K/uL (0.0-0.7); EOS % 2.3 % (0.0-4.0); HEMOGLOBIN 10.1 g/dL (12.0-18.0); LYMPH # 0.8 K/uL (1.0-4.3); LYMPH % 7.8 % (20.0-40.0); MEAN CELL VOLUME 88.4 fL (80.0-94.0); MEAN CORPUSCULAR HEMOGLOBIN 30.2 pg (27.0-31.0); MEAN CORPUSCULAR HGB CONC 34.2 g/dL (33.0-37.0); MEAN PLATELET VOLUME 8.8 fL (7.2-11.7); MONO # 0.7 K/uL (0.0-0.8); MONO % 6.7 % (0.0-10.0); NEUT # 8.6 K/uL (1.8-7.0); NEUT % 82.9 % (50.0-75.0); PLATELET COUNT 156 K/uL (130-400); RBC 3.33 Mil/uL (4.40-5.90); RED CELL DISTRIBUTION WIDTH 15.8 % (11.5-14.5); WHITE BLOOD COUNT 10.3 K/uL (4.8-10.8)
--- NOTE | 2017-11-27 11:09 | CP.PCM.PN ---
Subjective - Date & Time of Evaluation Date of Evaluation: 11/27/17 Time of Evaluation: 11:09 - Subjective Subjective: pt is seen and examined, follow up consult is dictated #[phone] for hd today Objective - Vital Signs/Intake and Output Vital Signs (last 24 hours): Temp Pulse Resp BP Pulse Ox 97.5 F L 78 18 146/77 100 11/27/17 07:00 11/27/17 08:04 11/27/17 07:00 11/27/17 10:56 11/27/17 07:00 Intake and Output: 11/27/17 11/27/17 06:59 18:59 Intake Total 650 Balance 650 - Medications Medications: Current Medications Albuterol/Ipratropium (Duoneb 3 Mg/0.5 Mg (3 Ml) Ud) 3 ml INH RQ4 [facility] Last Admin: 11/27/17 08:07 Dose: Not Given Aspirin (Aspirin Chewable) 81 mg PO DAILY [facility] Last Admin: 11/27/17 10:56 Dose: 81 mg Carvedilol (Coreg) 25 mg PO BID [facility] Last Admin: 11/27/17 10:55 Dose: 25 mg Dextrose (Dextrose 50% Inj) 0 ml IV STAT PRN; Protocol PRN Reason: Hypoglycemia Protocol Dextrose (Glutose 15) 0 gm PO ONCE PRN; Protocol PRN Reason: Hypoglycemia Protocol Furosemide (Lasix) 40 mg IVP BID [facility] Last Admin: 11/27/17 10:56 Dose: 40 mg Glucagon (Glucagen Diagnostic Kit) 0 mg IM STAT PRN; Protocol PRN Reason: Hypoglycemia Protocol Guaifenesin (Mucinex La) 600 mg PO Q12H [facility] Last Admin: 11/26/17 22:39 Dose: 600 mg Heparin Sodium (Porcine) (Heparin) 5,000 units SC Q12 [facility] Last Admin: 11/27/17 10:57 Dose: 5,000 units Hydralazine HCl (Apresoline) 100 mg PO Q8 [facility] Last Admin: 11/27/17 05:38 Dose: 100 mg Dextrose (Dextrose 5% In Water 1000 Ml) 1,000 mls @ 0 mls/hr IV .Q0M PRN; Protocol; Per Protocol PRN Reason: Hypoglycemia Protocol Cefepime HCl (Maxipime Iv 1 Gm Premix) 1 gm in 50 mls @ 100 mls/hr IVPB Q24H [facility] PRN Reason: Protocol Last Admin: 11/26/17 18:49 Dose: 100 mls/hr Insulin Glargine (Lantus) 10 unit SC [facility] Last Admin: 11/26/17 22:44 Dose: 10 units Insulin Human Regular (Novolin R) 0 unit SC [facility] PRN Reason: Protocol Last Admin: 11/27/17 08:30 Dose: 2 unit Montelukast Sodium (Singulair) 10 mg PO HS [facility] Last Admin: 11/26/17 22:40 Dose: 10 mg Pantoprazole Sodium (Protonix Ec Tab) 40 mg PO DAILY [facility] Last Admin: 11/27/17 10:56 Dose: 40 mg Rosuvastatin Calcium (Crestor) 10 mg PO HS [facility] Last Admin: 11/26/17 22:39 Dose: 10 mg Sevelamer Carbonate (Renvela) 800 mg PO TIDCC [facility] Last Admin: 11/27/17 08:56 Dose: 800 mg - Labs Labs: 11/27/17 10:55 11/26/17 07:11
[2017-11-27 11:26] LABS: ALB/GLOB RATIO 1.1 (1.0-2.1); ALBUMIN 3.4 g/dL (3.5-5.0)
[2017-11-27] MEDS ORDERED: Azithromycin 500 MG in Sodium Chloride 0.9% 250 ML IVPB SCH (11:45)
--- NOTE | 2017-11-27 11:59 | CP.PCM.PN ---
Subjective - Date & Time of Evaluation Date of Evaluation: 11/27/17 Time of Evaluation: 11:10 - Subjective Subjective: Medical Attending Note: Patient seen and examined. Patient denies headache, +shortness of breathe, +productive cough + Dyspnea, denies chest pain, denies abdominal pain, denies nausea, denies vomitting, + legs edema, pitting. Discussed with nephrology and pulmonary (Dr. huang) covering Dr. Klein. Patient is going for echocardiogram and going for dialysis afterwards. Objective - Vital Signs/Intake and Output Vital Signs (last 24 hours): Temp Pulse Resp BP Pulse Ox 97.5 F L 78 18 146/77 100 11/27/17 07:00 11/27/17 08:04 11/27/17 07:00 11/27/17 10:56 11/27/17 07:00 Intake and Output: 11/27/17 11/27/17 06:59 18:59 Intake Total 650 Balance 650 - Medications Medications: Current Medications Albuterol/Ipratropium (Duoneb 3 Mg/0.5 Mg (3 Ml) Ud) 3 ml INH RQ4 [facility] Last Admin: 11/27/17 08:07 Dose: Not Given Aspirin (Aspirin Chewable) 81 mg PO DAILY [facility] Last Admin: 11/27/17 10:56 Dose: 81 mg Carvedilol (Coreg) 25 mg PO BID [facility] Last Admin: 11/27/17 10:55 Dose: 25 mg Dextrose (Dextrose 50% Inj) 0 ml IV STAT PRN; Protocol PRN Reason: Hypoglycemia Protocol Dextrose (Glutose 15) 0 gm PO ONCE PRN; Protocol PRN Reason: Hypoglycemia Protocol Furosemide (Lasix) 40 mg IVP BID [facility] Last Admin: 11/27/17 10:56 Dose: 40 mg Glucagon (Glucagen Diagnostic Kit) 0 mg IM STAT PRN; Protocol PRN Reason: Hypoglycemia Protocol Guaifenesin (Mucinex La) 600 mg PO Q12H [facility] Last Admin: 11/26/17 22:39 Dose: 600 mg Heparin Sodium (Porcine) (Heparin) 5,000 units SC Q12 [facility] Last Admin: 11/27/17 10:57 Dose: 5,000 units Hydralazine HCl (Apresoline) 100 mg PO Q8 [facility] Last Admin: 11/27/17 05:38 Dose: 100 mg Dextrose (Dextrose 5% In Water 1000 Ml) 1,000 mls @ 0 mls/hr IV .Q0M PRN; Protocol; Per Protocol PRN Reason: Hypoglycemia Protocol Cefepime HCl (Maxipime Iv 1 Gm Premix) 1 gm in 50 mls @ 100 mls/hr IVPB Q24H [facility] PRN Reason: Protocol Last Admin: 11/26/17 18:49 Dose: 100 mls/hr Azithromycin 500 mg/ Sodium (Chloride) 250 mls @ 250 mls/hr IVPB DAILY [facility] PRN Reason: Protocol Insulin Glargine (Lantus) 10 unit SC [facility] Last Admin: 11/26/17 22:44 Dose: 10 units Insulin Human Regular (Novolin R) 0 unit SC [facility] PRN Reason: Protocol Last Admin: 11/27/17 08:30 Dose: 2 unit Montelukast Sodium (Singulair) 10 mg PO [facility] Last Admin: 11/26/17 22:40 Dose: 10 mg Pantoprazole Sodium (Protonix Ec Tab) 40 mg PO DAILY [facility] Last Admin: 11/27/17 10:56 Dose: 40 mg Rosuvastatin Calcium (Crestor) 10 mg PO HS [facility] Last Admin: 11/26/17 22:39 Dose: 10 mg Sevelamer Carbonate (Renvela) 800 mg PO TIDCC [facility] Last Admin: 11/27/17 11:23 Dose: 800 mg - Labs Labs: 11/27/17 10:55 11/27/17 10:55 - Constitutional Appears: Non-toxic, No Acute Distress - Head Exam Head Exam: NORMAL INSPECTION - Eye Exam Eye Exam: EOMI - ENT Exam ENT Exam: Mucous Membranes Moist - Respiratory Exam Respiratory Exam: Decreased Breath Sounds, Rales, Rhonchi, NORMAL BREATHING PATTERN. absent: Respiratory Distress, Stridor - Cardiovascular Exam Cardiovascular Exam: REGULAR RHYTHM, +S1, +S2 - GI/Abdominal Exam GI & Abdominal Exam: Distended (obese habitus), Soft, Normal Bowel Sounds. absent: Firm, Guarding, Rigid, Tenderness, Rebound - Extremities Exam Extremities Exam: Normal Capillary Refill, Pedal Edema (pitting edema b/l). absent: Tenderness - Neurological Exam Neurological Exam: Alert, Awake, Oriented x3 - Psychiatric Exam Psychiatric exam: Normal Affect, Normal Mood - Skin Skin Exam: Dry, Intact, Normal Color, Warm Assessment and Plan (1) Fluid overload Status: Acute (2) Cardiomyopathy Status: Chronic (3) ESRD (end stage renal disease) on dialysis Status: Chronic (4) Asthma Status: Chronic (5) Obstructive sleep apnea Status: Chronic (6) Diabetes Status: Chronic (7) Obesity Status: Chronic (8) Pacemaker Status: Chronic (9) Prophylactic measure Status: Acute Attending/Attestation - Attestation I have personally seen and examined this patient.: Yes I have fully participated in the care of the patient.: Yes I have reviewed all pertinent clinical information, including history, physical exam and plan: Yes Notes (Text): Patient to complete echocardiogram today. Patient to go for dialysis today. Patient recommended chest xray post dialysis. Will continue IV abx for pneumonia Blood pressure improved compared to yesterday Assessment/Plan 1) Fluid Overload * Contributing factors: ESRD (T//Wed), Cardiomyopathy, Obesity, history of noncompliance 2) Cardiomyopathy with PPM EF <30% Nonstemi * Cardiology Consult: Dr. Presley on board help appreciated * Per prior workup from his [facility] (Dr. Harmony Brown office) * Echocardiogram (08/10/17): EF: 27 percent w. mild aortic stenos and small ASD w / right to left shunt * LHC (08/05/17): no ischemic CAD * Spironolactone recommended due to EF <35% (RALES trial), however, due to AHA/ ACCF HF guidelines, will hold due to ESRD and Cr >2.5 * ACEi recommended due to Karina-HeFT trial, however, due to AHA/ACCF HF guidelines , will hold due to ESRD * elevated troponin attributed to ESRD * Fluid restriction * intake and outputs * Aspirin 81mg PO daily * Coreg 25 mg PO BID * Crestor 10mg POqHS 3) Pneumonia * Pulmonary (Dr. Klein) on board-->help appreciated * Infectious Disease (Dr. Rosales) on the case-->help appreciated * had septic presentation and received antibiotics before AMA; consider empiric 7 day course * c/w Cefepime 1 gram IV Q24H (Active since 11/25/17) * c/w Azithromycin 500mg IV daily (active since 11/27/17) * CT Chest (11/25/17): widespread diffuse pulmonary infiltrates are appreciate with subtle ground-glass component likely reflecting pneumonia no inflammatory process is not excluded. No significant lymphadenopathy grossly evident in this unenhanced exam. Pulmonary artery hypertension is in question. Mild ascending thoracic aneurysm 4.3 cm greatest dimension terminating at the anterior arch * V/Q scan (11/25/17): low probability ventilation perfusion scan for pulmonary embolism * Patient refused repeat ABG for today (11/26/17) * f/u legionella-->cancelled, Legionella: cancelled Mycoplasma Igm: negative * d/c Solumedrol 40mg IVP Q8H on 11/26/17 * Mucinex 600mg PO BID * Duoneb 3cc INH Q4H [facility] * Singulair 10mg PO qHS * Blood Culture (11/24/17): no growth * Blood culture (11/25/17): no growth 4) History of Sleep apnea * CPAP at night * Recommend sleep study outpatient to qualify for CPAP-->will f/u with Dr. Klein when stable 5) ESRD (//wed) * Nephrology consult (Dr. Boswell) on consult * ESRD (Wednesday//Wednesday) * completed dialysis on Wednesday-->3.4 liters removed * Going for for this afternoon * Renvela 800mg PO TIDCC * Discussed with nephrology, recommends for patient to have 3 dialysis sessions a week; he easily fluid retains. 6) Left known Renal Mass * Patient scheduled for December [address] Sydney Bartlett 7) Diabetes * Patient refused accuchecks * a1c: 6.6 * Regular insulin sliding scale subq * Lantus 10mg units subqHS * Hypoglycemic protocol 8) Uncontrolled Hypertension secondary to fluid overload-->controlled * c/ wHydralazine 100mg PO Q8H * c/w Coreg 25mg PO BID * LAsix 40mg IV Q12H * Dialysis on Wednesday//Saturdays 9) Asthma * Duonebs every 4hours * restart Solumedrol 40mg IVP Q8H on 11/26/17 * Mucinex 600mg PO BID * Duoneb 3cc INH Q4H [facility] * Singulair 10mg PO qHS 10) Prophylactic care * Heparin 5000 units [id number] * Protonix 40mg PO daily * Florastor 250mg PO BID
--- NOTE | 2017-11-27 12:06 | CP.PCM.PN ---
Subjective - Date & Time of Evaluation Date of Evaluation: 11/27/17 Time of Evaluation: 12:03 - Subjective Subjective: Pulmonary Follow up Covering Dr. Klein The patient was Seen/interviewed and examined by me at the bedside, Medical records reviewed and Management issues were discussed and formulated with the house staff. Events reviewed Pt AAO x3. Alert, follows commands Patient just walked to the bathroom, looks dyspnic and out of breath Patient denies chest pain. Scheduled for HD today, but want to have it after lunch I&O reviewed Afebrile, NSR on the monitor, Patient states has dyspnea on minimal exertion, improves with supplemental oxygen No episodes of desaturation Patien on currently on 3L nasal cannula Stat CXR ordered post HD AM Labs reviewed, Leucocytosis of 11.4, mildly elevated renal function Bllos sugar 132-200 Objective - Vital Signs/Intake and Output Vital Signs (last 24 hours): Temp Pulse Resp BP Pulse Ox 97.5 F L 78 18 146/77 100 11/27/17 07:00 11/27/17 08:04 11/27/17 07:00 11/27/17 10:56 11/27/17 07:00 Intake and Output: 11/27/17 11/27/17 06:59 18:59 Intake Total 650 Balance 650 - Medications Medications: Current Medications Albuterol/Ipratropium (Duoneb 3 Mg/0.5 Mg (3 Ml) Ud) 3 ml INH RQ4 [facility] Last Admin: 11/27/17 08:07 Dose: Not Given Aspirin (Aspirin Chewable) 81 mg PO DAILY [facility] Last Admin: 11/27/17 10:56 Dose: 81 mg Carvedilol (Coreg) 25 mg PO BID [facility] Last Admin: 11/27/17 10:55 Dose: 25 mg Dextrose (Dextrose 50% Inj) 0 ml IV STAT PRN; Protocol PRN Reason: Hypoglycemia Protocol Dextrose (Glutose 15) 0 gm PO ONCE PRN; Protocol PRN Reason: Hypoglycemia Protocol Furosemide (Lasix) 40 mg IVP BID [facility] Last Admin: 11/27/17 10:56 Dose: 40 mg Glucagon (Glucagen Diagnostic Kit) 0 mg IM STAT PRN; Protocol PRN Reason: Hypoglycemia Protocol Guaifenesin (Mucinex La) 600 mg PO Q12H [facility] Last Admin: 11/26/17 22:39 Dose: 600 mg Heparin Sodium (Porcine) (Heparin) 5,000 units SC Q12 [facility] Last Admin: 11/27/17 10:57 Dose: 5,000 units Hydralazine HCl (Apresoline) 100 mg PO Q8 [facility] Last Admin: 11/27/17 05:38 Dose: 100 mg Dextrose (Dextrose 5% In Water 1000 Ml) 1,000 mls @ 0 mls/hr IV .Q0M PRN; Protocol; Per Protocol PRN Reason: Hypoglycemia Protocol Cefepime HCl (Maxipime Iv 1 Gm Premix) 1 gm in 50 mls @ 100 mls/hr IVPB Q24H [facility] PRN Reason: Protocol Last Admin: 11/26/17 18:49 Dose: 100 mls/hr Azithromycin 500 mg/ Sodium (Chloride) 250 mls @ 250 mls/hr IVPB DAILY [facility] PRN Reason: Protocol Insulin Glargine (Lantus) 10 unit SC HS [facility] Last Admin: 11/26/17 22:44 Dose: 10 units Insulin Human Regular (Novolin R) 0 unit SC ACHS [facility] PRN Reason: Protocol Last Admin: 11/27/17 08:30 Dose: 2 unit Methylprednisolone (Solu-Medrol) 40 mg IVP Q8H [facility] Montelukast Sodium (Singulair) 10 mg PO HS [facility] Last Admin: 11/26/17 22:40 Dose: 10 mg Pantoprazole Sodium (Protonix Ec Tab) 40 mg PO DAILY [facility] Last Admin: 11/27/17 10:56 Dose: 40 mg Rosuvastatin Calcium (Crestor) 10 mg PO HS [facility] Last Admin: 11/26/17 22:39 Dose: 10 mg Sevelamer Carbonate (Renvela) 800 mg PO TIDCC [facility] Last Admin: 11/27/17 11:23 Dose: 800 mg - Labs Labs: 11/27/17 10:55 11/27/17 10:55 - Constitutional Appears: Well, In Acute Distress, Chronically Ill - Head Exam Head Exam: ATRAUMATIC, NORMAL INSPECTION, NORMOCEPHALIC - Eye Exam Eye Exam: EOMI. absent: Conjunctival injection Pupil Exam: NORMAL ACCOMODATION, PERRL - ENT Exam ENT Exam: Mucous Membranes Dry - Neck Exam Neck Exam: Full ROM, Normal Inspection. absent: Lymphadenopathy, Thyromegaly - Respiratory Exam Respiratory Exam: Accessory Muscle Use, Decreased Breath Sounds, Prolonged Expiratory Phase, Rales, Wheezes. absent: Chest Wall Tenderness, Clear to Ausculation Bilateral, Rhonchi - Cardiovascular Exam Cardiovascular Exam: REGULAR RHYTHM, RRR, +S1, +S2. absent: Bradycardia, Tachycardia, JVD - GI/Abdominal Exam GI & Abdominal Exam: Distended, Firm, Normal Bowel Sounds. absent: Guarding, Rigid - Extremities Exam Extremities Exam: Normal Capillary Refill, Pedal Edema. absent: Calf Tenderness , Full ROM, Joint Swelling, Normal Inspection - Back Exam Back Exam: absent: CVA tenderness (L), CVA tenderness (R) - Neurological Exam Neurological Exam: Alert, Altered, Awake, CN II-XII Intact, Motor Sensory Deficit, Normal Gait, Oriented x3 Assessment and Plan - Assessment and Plan (Free Text) Assessment: Assessment/Plan: 1. Respiratory failure sec to fluid overload and Pneumonia -WBC improvin.9 - Continue Duoneb - Continue Cefepime - Continue Solumedrol 2. Obstructive Sleep Apnea - Continue CPAP - Recommend sleep study outpatient to qualify for CPAP 3. End-Stage Renal Disease - Dialysis yesterday - Management per Primary Team 4. HTN - Management per Primary Team 5. Diabetes Mellitus - Management per primary team
[2017-11-27] MEDS: guaiFENesin 600 mg ER Tab PO SCH ×2 (12:11→22:53)
[2017-11-27 12:29] LABS: EOSINOPHIL 2 % (0-4); LYMPHOCYTE 7 % (20-40); MONOCYTE 5 % (0-10); NEUTROPHIL 86 % (50-75); TOTAL CELLS COUNTED 100
[2017-11-27 12:30] LABS: ANISOCYTOSIS SLIGHT; HYPOCHROMIC SLIGHT; PLATELET ESTIMATE NORMAL (NORMAL); POLYCHROMIC SLIGHT
--- NOTE | 2017-11-27 13:05 | CARD ---
APPROVED REPORT EXAM: Two-dimensional and M-mode echocardiogram with Doppler and color Doppler. Other Information Quality : GoodRhythm : INDICATION Dyspnea Congestive Heart Failure CHECK EF, CARDIOMYOPATHY RISK FACTORS Hypertension Obesity 2D DIMENSIONS IVSd1.5 (0.7-1.1cm)Aortic Root (2D)3.1 (2.0-3.7cm) LVDd6.0 (3.9-5.9cm)LVOT Diameter1.8 (1.8-2.4cm) PWd1.3 (0.7-1.1cm)LVDs4.9 (2.5-4.0cm) FS (%) 18.1 %LVEF (%)36.9 (>50%) M-Mode DIMENSIONS Left Atrium (MM)4.87 (2.5-4.0cm)Aortic Root3.34 (2.2-3.7cm) Aortic Cusp Exc.1.72 (1.5-2.0cm) Mitral Valve MV E Fnbwtbvs734.4cm/sMV A Rhqsrlwy42.9cm/sMV TZE31ri E/A ratio1.7MVA (PHT)2.96cm2 TDI E/Lateral E'0.0E/Medial E'0.0 Tricuspid Valve TR Peak [id number]/sTR Peak Gr.[id number] LEFT VENTRICLE The Left Ventricle is mildly dilated. There is mild concentric left ventricular hypertrophy. The systolic function is severely impaired. There is global hypokinesis of the left ventricle. No left ventricle thrombus noted on this study. RIGHT VENTRICLE The right ventricle is normal size. There is normal right ventricular wall thickness. Systolic function is mildly reduced. ATRIA The left atrium is mildly dilated. The right atrium size is normal. AORTIC VALVE The aortic valve is normal in structure. No aortic regurgitation is present. There is no aortic valvular stenosis. MITRAL VALVE The mitral valve is normal in structure. There is no evidence of mitral valve prolapse. TRICUSPID VALVE The tricuspid valve is normal in structure. There is no tricuspid valve regurgitation noted. GREAT VESSELS The aortic root is normal in size. <Conclusion> The Left Ventricle is mildly dilated. There is mild concentric left ventricular hypertrophy. The systolic function is severely impaired. There is global hypokinesis of the left ventricle. No left ventricle thrombus noted on this study.
[2017-11-27] MEDS: MethylPREDNISolone 40 mg Vial IVP SCH ×2 (13:17→20:14)
--- NOTE | 2017-11-27 18:17 | PN ---
DATE: 11/27/2017 FOLLOWUP RENAL CONSULTATION LOCATION: The patient is located in room 662, bed A. REQUESTED BY: . SUBJECTIVE: Mr. Mehta is a 57-year-old obese [place] male with a history of longstanding hypertension, diabetes, asthma, CHF with poor LV function, status post AICD placement, nephrotic proteinuria, renal failure, on hemodialysis two times a week Wednesday and Wednesday and a left renal mass scheduled on 12/14/[address] Bartlett, was admitted with the cough and shortness of breath 4 to 5 days prior to the admission. She was in the emergency room prior to the admission. The patient was admitted with persistent cough and shortness of breath. The patient underwent hemodialysis on , extra dialysis. The patient was slightly better. Still complains of cough and pain in the ribs when he coughs and also difficulty to take deep inspiration associated with severe cough. No nausea, no vomiting, no diarrhea. PHYSICAL EXAMINATION: VITAL SIGNS: As follows: This morning, blood pressure 146/77, pulse 78, respirations 18, temperature 97.5, saturation 100%, height 5 feet 6 inches, weight is 296 pounds. GENERAL: Mr. Mehta is a 57-year-old male, obese, well-built, well-nourished, not in distress. Not on any oxygen at this time. HEENT: Pupils normal and reactive to light and accommodation. Conjunctivae pink. Sclerae anicteric. Tongue is moist. Trachea is midline. LUNGS: Symmetric on both sides. Bilateral breath sounds present. Bilateral expiratory wheeze present. CVS: [place] at the fifth intercostal space, midclavicular line. S1, S2 audible. No murmur or gallop. ABDOMEN: Protuberant, was soft, tympanic. No guarding. No rigidity. No hepatosplenomegaly. AUTOMATION DESIGN ENGINEER: The patient is alert, awake, and oriented x3. Nonfocal neuro examination. Cranial nerves II through XII grossly intact. Sensory and motor system are within normal limits. EXTREMITIES: No cyanosis, no clubbing, no edema. CURRENT MEDICATIONS: Include hydralazine 100 mg p.o. every 8 hours, aspirin 81 mg daily, Coreg 25 mg p.o. b.i.d. , Crestor 10 mg at bedtime, subcu heparin 5000 units every 12 hours, Lantus 10 units subcu at bedtime, Lasix 40 mg IV b.i.d., Cefepime 1 gm daily, Mucinex 600 mg p.o. every 12 hours, Novolin R sliding scale, Protonix 40 mg daily, Renvela 800 mg p.o. t.i.d., and Singulair 10 mg p.o. at bedtime. LABORATORY DATA: Include as follows: As of 11/27/2017, WBC 10.3, hemoglobin 10.1, hematocrit 29.4., and platelets 156. Sodium 137, potassium 4.1, chloride 96, CO2 of 25, BUN 81, creatinine 5.2, glucose 219, calcium is 8, phosphorus 5.6, magnesium 2.1, total bili 0.5, AST 22, ALT 13, alkaline phosphatase 64, total protein 6.4, albumin is 3.4. Blood cultures x2 from 11/24/2017, negative day #2 and blood cultures x3 from 11/25/2017, negative day #1. VQ scan was negative as of 11/25/[address] of the chest on 11/25/2017. IMPRESSION: Widespread diffuse pulmonary infiltrate. Appreciated with subtle ground glass component likely representing pneumonia. No inflammatory processes, not excluded. No significant lymph node enlargement grossly evident in the unenhanced stem. Pulmonary artery hypertension is being questioned, clinically correlate, mild ascending thoracic acute aneurysm 4.3 greatest dimension terminating at the anterior arch. In summary, Mr. Mehta is a 57-year-old elderly obese male with a history of hypertension, diabetes, asthma, chronic obstructive pulmonary disease, poor left ventricular function, congestive heart failure, status post AICD placement, and end-stage renal disease, on hemodialysis two times a week, refusing three times at this elaine with the left renal mass and scheduled for surgery on 12/14/2017, was admitted with cough and shortness of breath. 1. Bilateral pneumonia. 2. End-stage renal disease. Continue hemodialysis 3 times while he is in the hospital and if the patient agrees, we will switch to three times a week as an outpatient. 3. Anemia secondary to renal failure. Continue Epogen three times a week. 4. Continue Zemplar, restrict fluids to 1500 mL per day and continue IV antibiotic in the morning bilateral. 5. Continue Cefepime and continue DuoNeb inhaler and Singulair. We will follow with you. Thank you for allowing me to participate in the patient's care. Discussed with in the rounds for possible discharge today if he is cleared by the Pulmonary. Talya Vogel MD
[2017-11-27] MEDS: Cefepime IV 1 gm in Dextrose 1 GM/50 ML BAG IVPB SCH (18:43)
[2017-11-27] MEDS: Saccharomyces Boulardi 250 mg Cap PO SCH (18:44)
[2017-11-27] MEDS: (Lantus) Insulin Glargine, Recombinant SC SCH (23:00)
[2017-11-28] MEDS: Albuterol-Ipratrop 3 mg / 0.5 (3 ml) UD INH SCH ×6 (01:19→19:37)
[2017-11-28] MEDS: MethylPREDNISolone 40 mg Vial IVP SCH ×3 (05:12→19:36)
[2017-11-28] MEDS: (Novolin R) Insulin Human Regular 100 units/ml vial SC SCH ×4 (07:13→22:35)
[2017-11-28 08:00] LABS: BASO % 0.1 % (0.0-2.0); HEMOGLOBIN 9.2 g/dL (12.0-18.0); LYMPH # 0.1 K/uL (1.0-4.3); LYMPH % 1.4 % (20.0-40.0); MEAN CELL VOLUME 88.2 fL (80.0-94.0); MEAN CORPUSCULAR HEMOGLOBIN 30.1 pg (27.0-31.0); MEAN CORPUSCULAR HGB CONC 34.1 g/dL (33.0-37.0); MEAN PLATELET VOLUME 8.9 fL (7.2-11.7); MONO # 0.2 K/uL (0.0-0.8); MONO % 2.5 % (0.0-10.0); NEUT # 9.3 K/uL (1.8-7.0); PLATELET COUNT 137 K/uL (130-400); RBC 3.06 Mil/uL (4.40-5.90); RED CELL DISTRIBUTION WIDTH 16.3 % (11.5-14.5); WHITE BLOOD COUNT 9.7 K/uL (4.8-10.8)
--- NOTE | 2017-11-28 08:04 | CP.PCM.PN ---
Addendum entered and electronically signed by Natasha Cummins DO 11/28/17 13:54: repeat cxr post dialysis shows moderate pulmonary congestion, likely pulmonary edema Original Note: <Natasha Cummins - Last Filed: 11/28/17 11:36> Subjective - Date & Time of Evaluation Date of Evaluation: 11/28/17 Time of Evaluation: 11:36 - Subjective Subjective: Progress Note Patient seen and examined at bedside. No acute events overnight. Patient states he's sleeping better with these cpap settings versus the one he used to have at home a long time ago. Patient encouraged to keep his appointment for sleep study. Patient agrees. Patient denies fever, chills, nausea, vomiting, diarrhea. Patient admits to cough with sputum produced during breathing treatment. He said he gave it for cultures. Objective - Vital Signs/Intake and Output Vital Signs (last 24 hours): Temp Pulse Resp BP Pulse Ox 98.1 F 91 H 20 165/88 H 95 11/28/17 04:25 11/28/17 04:25 11/28/17 04:25 11/28/17 04:25 11/28/17 04:25 Intake and Output: 11/28/17 11/28/17 06:59 18:59 Intake Total 530 Balance 530 - Medications Medications: Current Medications Albuterol/Ipratropium (Duoneb 3 Mg/0.5 Mg (3 Ml) Ud) 3 ml INH RQ4 [facility] Last Admin: 11/28/17 04:55 Dose: Not Given Aspirin (Aspirin Chewable) 81 mg PO DAILY [facility] Last Admin: 11/27/17 10:56 Dose: 81 mg Azithromycin (Zithromax) 500 mg PO DAILY [facility] PRN Reason: Protocol Last Admin: 11/27/17 13:27 Dose: 500 mg Carvedilol (Coreg) 25 mg PO BID [facility] Last Admin: 11/27/17 22:55 Dose: 25 mg Dextrose (Dextrose 50% Inj) 0 ml IV STAT PRN; Protocol PRN Reason: Hypoglycemia Protocol Dextrose (Glutose 15) 0 gm PO ONCE PRN; Protocol PRN Reason: Hypoglycemia Protocol Furosemide (Lasix) 40 mg IVP BID [facility] Last Admin: 11/27/17 19:00 Dose: Not Given Glucagon (Glucagen Diagnostic Kit) 0 mg IM STAT PRN; Protocol PRN Reason: Hypoglycemia Protocol Guaifenesin (Mucinex La) 600 mg PO Q12H [facility] Last Admin: 11/27/17 22:53 Dose: 600 mg Heparin Sodium (Porcine) (Heparin) 5,000 units SC Q12 [facility] Last Admin: 11/27/17 23:00 Dose: 5,000 units Hydralazine HCl (Apresoline) 100 mg PO Q8 [facility] Last Admin: 11/28/17 05:12 Dose: 100 mg Dextrose (Dextrose 5% In Water 1000 Ml) 1,000 mls @ 0 mls/hr IV .Q0M PRN; Protocol; Per Protocol PRN Reason: Hypoglycemia Protocol Cefepime HCl (Maxipime Iv 1 Gm Premix) 1 gm in 50 mls @ 100 mls/hr IVPB Q24H [facility] PRN Reason: Protocol Last Admin: 11/27/17 18:43 Dose: 100 mls/hr Insulin Glargine (Lantus) 10 unit SC [facility] Last Admin: 11/27/17 23:00 Dose: 10 units Insulin Human Regular (Novolin R) 0 unit SC ACHS [facility] PRN Reason: Protocol Last Admin: 11/28/17 07:13 Dose: 12 unit Methylprednisolone (Solu-Medrol) 40 mg IVP Q8H [facility] Last Admin: 11/28/17 05:12 Dose: 40 mg Montelukast Sodium (Singulair) 10 mg PO [facility] Last Admin: 11/27/17 22:55 Dose: 10 mg Pantoprazole Sodium (Protonix Ec Tab) 40 mg PO DAILY [facility] Last Admin: 11/27/17 10:56 Dose: 40 mg Rosuvastatin Calcium (Crestor) 10 mg PO [facility] Last Admin: 11/27/17 22:55 Dose: 10 mg Saccharomyces Boulardii (Florastor) 250 mg PO BID [facility] Last Admin: 11/27/17 18:44 Dose: 250 mg Sevelamer Carbonate (Renvela) 800 mg PO TIDCC [facility] Last Admin: 11/27/17 18:44 Dose: 800 mg - Labs Labs: 11/28/17 07:45 11/27/17 10:55 - Constitutional Appears: Non-toxic, No Acute Distress - Head Exam Head Exam: ATRAUMATIC, NORMAL INSPECTION, NORMOCEPHALIC - Eye Exam Eye Exam: EOMI, Normal appearance Pupil Exam: NORMAL ACCOMODATION, PERRL - ENT Exam ENT Exam: Mucous Membranes Moist, Normal Exam - Neck Exam Neck Exam: Full ROM. absent: Tenderness, Thyromegaly - Respiratory Exam Respiratory Exam: Wheezes, NORMAL BREATHING PATTERN. absent: Accessory Muscle Use, Chest Wall Tenderness, Respiratory Distress, Stridor - Cardiovascular Exam Cardiovascular Exam: REGULAR RHYTHM, +S1, +S2 - GI/Abdominal Exam GI & Abdominal Exam: Distended, Soft. absent: Guarding, Rigid, Tenderness - Extremities Exam Extremities Exam: Full ROM, Normal Capillary Refill, Normal Inspection. absent : Pedal Edema - Back Exam Back Exam: Full ROM, NORMAL INSPECTION - Neurological Exam Neurological Exam: Alert, Awake, CN II-XII Intact - Psychiatric Exam Psychiatric exam: Normal Affect, Normal Mood - Skin Skin Exam: Dry, Intact, Normal Color, Warm Assessment and Plan - Assessment and Plan (Free Text) Assessment: Assessment: CHF 11/25/17 CT Chest showed diffuse pulm infiltrates and mild ascending thoracic aortic aneurysm 4.3cm mild ascending thoracic aortic aneurysm 4.3cm 11/25/17 Lung V/Q scan showed low probability for pulm embolism elevated Troponin I x 1 Cardiology Consult: Dr. Presley PMD notes on EF of recent echo show EF <30% pacemaker placed after July 15, 2017 echo copies of nuclear stress test and echo ordered. per Cardiology recommendations: continue hydralazine Cardio consult: ID Consult: Dr. Rosales Pulmonology Consult: Dr. Klein CAP CXR shows interstitial fluid pneumoniae negative mycoplasma negative ID Consult: Dr. Rosales Pulmonology Consult: Dr. Klein Cefepime 1 gm IV Q24H, 11/25/17 Azithromycin 500mg IV QD, 11/27/17 Mucinex LA Duoneb 3cc INH Q4H [facility] Asthma Duoneb Q4H 11/26/17 restarted solumedrol 40mg IVP Q8H Mucinex 600mg PO BID Singulair 10 mg PO QHS DM Hemoglobin A1c 6.6 Patient has refused accuchecks due to his well controlled diabetes. Insulin SS, high Lantus 10 u SC Q HS Hypoglycemic protocol diabetic system administration advisor referral Uncontroled HTN likely secondary to fluid overload, controlled c/w hydralazine 100 mg PO Q8H c/w Coreg 25 mg PO BID Lasix 40mg IV Q12H Dialysis T TH Sat Sleep apnea CPAP at night to follow up outpatient for Dr. Klein for sleep study ESRD, with temporary catheter and snuff box AVF Nephrology consult:Dr. Boswell Dialysis T Sat Renal mass f/u removal scheduled for December 13 Prophylaxis Heparin 5,000 u SC Q12H Protonix 40mg PO QD Florastor 250mg PO BID discussed with Dr. Riley Kaur Eng, DO PGY1 <Rosangela Lin V - Last Filed: 11/28/17 14:47> Objective - Vital Signs/Intake and Output Vital Signs (last 24 hours): Temp Pulse Resp BP Pulse Ox 98.1 F 92 H 20 179/80 H 95 11/28/17 08:25 11/28/17 08:25 11/28/17 08:25 11/28/17 10:46 11/28/17 04:25 Intake and Output: 11/28/17 11/28/17 06:59 18:59 Intake Total 530 Balance 530 - Medications Medications: Current Medications Albuterol/Ipratropium (Duoneb 3 Mg/0.5 Mg (3 Ml) Ud) 3 ml INH RQ4 [facility] Last Admin: 11/28/17 11:54 Dose: 3 ml Amlodipine Besylate (Norvasc) 5 mg PO DAILY [facility] Aspirin (Aspirin Chewable) 81 mg PO DAILY [facility] Last Admin: 11/28/17 10:50 Dose: 81 mg Azithromycin (Zithromax) 500 mg PO DAILY [facility] PRN Reason: Protocol Last Admin: 11/28/17 10:47 Dose: 500 mg Carvedilol (Coreg) 25 mg PO BID [facility] Last Admin: 11/28/17 10:45 Dose: 25 mg Dextrose (Dextrose 50% Inj) 0 ml IV STAT PRN; Protocol PRN Reason: Hypoglycemia Protocol Dextrose (Glutose 15) 0 gm PO ONCE PRN; Protocol PRN Reason: Hypoglycemia Protocol Furosemide (Lasix) 40 mg IVP BID [facility] Last Admin: 11/28/17 10:46 Dose: 40 mg Glucagon (Glucagen Diagnostic Kit) 0 mg IM STAT PRN; Protocol PRN Reason: Hypoglycemia Protocol Guaifenesin (Mucinex La) 600 mg PO Q12H [facility] Last Admin: 11/28/17 10:47 Dose: 600 mg Heparin Sodium (Porcine) (Heparin) 5,000 units SC Q12 [facility] Last Admin: 11/28/17 10:47 Dose: 5,000 units Hydralazine HCl (Apresoline) 100 mg PO Q8 [facility] Last Admin: 11/28/17 05:12 Dose: 100 mg Dextrose (Dextrose 5% In Water 1000 Ml) 1,000 mls @ 0 mls/hr IV .Q0M PRN; Protocol; Per Protocol PRN Reason: Hypoglycemia Protocol Cefepime HCl (Maxipime Iv 1 Gm Premix) 1 gm in 50 mls @ 100 mls/hr IVPB Q24H [facility] PRN Reason: Protocol Last Admin: 11/27/17 18:43 Dose: 100 mls/hr Insulin Aspart (Novolog) 4 unit SC ACTID [facility] Insulin Glargine (Lantus) 22 unit SC HS [facility] Insulin Human Regular (Novolin R) 0 unit SC ACHS [facility] PRN Reason: Protocol Last Admin: 11/28/17 12:30 Dose: 12 unit Methylprednisolone (Solu-Medrol) 40 mg IVP Q8H [facility] Last Admin: 11/28/17 12:57 Dose: 40 mg Montelukast Sodium (Singulair) 10 mg PO [facility] Last Admin: 11/27/17 22:55 Dose: 10 mg Pantoprazole Sodium (Protonix Ec Tab) 40 mg PO DAILY [facility] Last Admin: 11/28/17 11:17 Dose: 40 mg Rosuvastatin Calcium (Crestor) 10 mg PO [facility] Last Admin: 11/27/17 22:55 Dose: 10 mg Saccharomyces Boulardii (Florastor) 250 mg PO BID [facility] Last Admin: 11/28/17 10:49 Dose: 250 mg Sevelamer Carbonate (Renvela) 800 mg PO TIDCC [facility] Last Admin: 11/28/17 12:57 Dose: 800 mg - Labs Labs: 11/28/17 07:45 11/28/17 07:45 Assessment and Plan (1) Fluid overload Status: Acute (2) Cardiomyopathy Status: Chronic (3) ESRD (end stage renal disease) on dialysis Status: Chronic (4) Asthma Status: Chronic (5) Obstructive sleep apnea Status: Chronic (6) Diabetes Status: Chronic (7) Obesity Status: Chronic (8) Pacemaker Status: Chronic (9) Prophylactic measure Status: Acute Attending/Attestation - Attestation I have personally seen and examined this patient.: Yes I have fully participated in the care of the patient.: Yes I have reviewed all pertinent clinical information, including history, physical exam and plan: Yes Notes (Text): Patient seen, examined, and case discussed with day-time resident. Patient reports he is breathing better and coughing up phlegm. Patient seen at bedside this afternoon wearing his Bipap at bedside. Will continue IV abx to cover for pneumonia Blood pressure uncontrolled; given dose Norvasc 5mg PO stat; standing order: Norvasc 5mg PO daily Patient's sugars uncontrolled secondary to restarting IV steroids. Patient required 24 units of regular insulin for coverage during 24hours. We will increase Lantus 20 units subqHS (patient is dialysis patient) and premeal insulin Novolog 3 units subqAC. Patient is on 4th day of antibiotics to cover for pneumonia. Assessment/Plan 1) Fluid Overload * Contributing factors: ESRD (T//Wed), Cardiomyopathy, Obesity, history of noncompliance 2) Cardiomyopathy with PPM EF <30% Nonstemi * Cardiology Consult: Dr. Presley on board help appreciated * Per prior workup from his breakdown mill operator (Dr. Harmony Brown office) * Echocardiogram (08/10/17): EF: 27 percent w. mild aortic stenos and small ASD w / right to left shunt * LHC (08/05/17): no ischemic CAD * Spironolactone recommended due to EF <35% (RALES trial), however, due to AHA/ ACCF HF guidelines, will hold due to ESRD and Cr >2.5 * ACEi recommended due to Karina-HeFT trial, however, due to AHA/ACCF HF guidelines , will hold due to ESRD * elevated troponin attributed to ESRD * Fluid restriction * intake and outputs * Aspirin 81mg PO daily * Coreg 25 mg PO BID * Crestor 10mg POqHS * Norvasc 5mg PO daily 3) Pneumonia * Pulmonary (Dr. Klein) on board-->help appreciated * Infectious Disease (Dr. Rosales) on the case-->help appreciated * had septic presentation and received antibiotics before AMA; consider empiric 7 day course * c/w Cefepime 1 gram IV Q24H (Active since 11/25/17) * c/w Azithromycin 500mg IV daily (active since 11/27/17) * CT Chest (11/25/17): widespread diffuse pulmonary infiltrates are appreciate with subtle ground-glass component likely reflecting pneumonia no inflammatory process is not excluded. No significant lymphadenopathy grossly evident in this unenhanced exam. Pulmonary artery hypertension is in question. Mild ascending thoracic aneurysm 4.3 cm greatest dimension terminating at the anterior arch * V/Q scan (11/25/17): low probability ventilation perfusion scan for pulmonary embolism * Patient refused repeat ABG for today (11/26/17) * f/u legionella-->cancelled, Legionella: cancelled Mycoplasma Igm: negative * d/c Solumedrol 40mg IVP Q8H on 11/26/17 * Mucinex 600mg PO BID * Duoneb 3cc INH Q4H [facility] * Singulair 10mg PO qHS * Blood Culture (11/24/17): no growth for 3 days X2 * Blood culture (11/25/17): no growth for 48 hours X2 4) History of Sleep apnea * CPAP at night * Recommend sleep study outpatient to qualify for CPAP-->will f/u with Dr. Klein when stable 5) ESRD (//wed) * Nephrology consult (Dr. Boswell) on consult * ESRD (Wednesday//Wednesday) * completed dialysis on Wednesday-->3.4 liters removed * Going for dialysis tomorrow * Renvela 800mg PO TIDCC * Discussed with nephrology, recommends for patient to have 3 dialysis sessions a week; he easily fluid retains-->patient is not amenable to increase the number of dialysis sessions. 6) Left known Renal Mass * Patient scheduled for December [address] Sydney Bartlett 7) Diabetes Uncontrolled secondary to steroids * Patient refused accuchecks * a1c: 6.6 * Regular insulin sliding scale subq * Lantus 20mg units subqHS * Novolog 4 subq tidac * Hypoglycemic protocol 8) Uncontrolled Hypertension secondary to fluid overload * Uncontrolled * c/ w Hydralazine 100mg PO Q8H * c/w Coreg 25mg PO BID * LAsix 40mg IV Q12H * Start Norvasc 5mg PO daily * Dialysis on Wednesday//Saturdays-->3 liters (patient will not allow for more fluid to be removed secondary to muscle cramping) 9) Asthma * Duonebs every 4hours * restart Solumedrol 40mg IVP Q8H on 11/26/17 * Mucinex 600mg PO BID * Duoneb 3cc INH Q4H [facility] * Singulair 10mg PO qHS 10) Prophylactic care * Heparin 5000 units [id number] * Protonix 40mg PO daily * Florastor 250mg PO BID Disposition: Continue for IV abx (will need 7 days of empiric treatment) Pending pulmonary and nephrology clearance for discharge given patient's fluid overload state Patient going for dialysis tomorrrow.
[2017-11-28 08:20] LABS: ALB/GLOB RATIO 1.2 (1.0-2.1); ALBUMIN 3.6 g/dL (3.5-5.0); CALCIUM 7.7 mg/dl (8.6-10.4)
--- NOTE | 2017-11-28 09:20 | RAD ---
HISTORY: fluid overload, pneumonia COMPARISON: Portable chest 11/24/2017 FINDINGS: LUNGS: No active pulmonary disease. PLEURA: No significant pleural effusion identified, no pneumothorax apparent. CARDIOVASCULAR: Cardiac size remains prominent appearing with AICD/permanent pacemaker again noted in position. Prominent right central venous dialysis catheter also unchanged. OSSEOUS STRUCTURES: No significant abnormalities. VISUALIZED UPPER ABDOMEN: Normal. OTHER FINDINGS: None. IMPRESSION: Stable cardiomegaly. No acute infiltrate or pleural effusion identified in the interval. No pulmonary vascular congestion.
[2017-11-28 09:41] LABS: N MENINGITIS ACY/W135 NEGATIVE (NEGATIVE); N MENINGITIS B/ECOLI K1 NEGATIVE (NEGATIVE); STREP PNEUMONIAE NEGATIVE (NEGATIVE); STREPTOCOCCUS B NEGATIVE (NEGATIVE)
[2017-11-28 10:26] LABS: LYMPHOCYTE 1 % (20-40); MONOCYTE 1 % (0-10); NEUTROPHIL 98 % (50-75); TOTAL CELLS COUNTED 100
[2017-11-28 10:27] LABS: ANISOCYTOSIS SLIGHT; PLATELET ESTIMATE NORMAL (NORMAL)
[2017-11-28 10:28] LABS: HYPOCHROMIC SLIGHT; POLYCHROMIC SLIGHT
[2017-11-28] MEDS: guaiFENesin 600 mg ER Tab PO SCH ×2 (10:47→22:33)
[2017-11-28] MEDS: Saccharomyces Boulardi 250 mg Cap PO SCH ×2 (10:49→18:03)
[2017-11-28] MEDS: Pantoprazole 40 mg EC Tab PO SCH (11:17)
[2017-11-28] MEDS ORDERED: (Lantus) Insulin Glargine, Recombinant SC SCH ×2 (14:20→14:47)
[2017-11-28] MEDS ORDERED: (Novolog) Insulin Aspart, Recombinant 100 u/ml 10 ml vial SC SCH (16:30)
--- NOTE | 2017-11-28 17:46 | CP.PCM.PN ---
Subjective - Date & Time of Evaluation Date of Evaluation: 11/28/17 Time of Evaluation: 09:00 - Subjective Subjective: still wheezing no fever or chest pain Objective - Vital Signs/Intake and Output Vital Signs (last 24 hours): Temp Pulse Resp BP Pulse Ox 98.1 F 88 22 146/75 97 11/28/17 15:20 11/28/17 15:20 11/28/17 15:20 11/28/17 15:20 11/28/17 15:20 Intake and Output: 11/28/17 11/28/17 06:59 18:59 Intake Total 530 Balance 530 - Medications Medications: Current Medications Albuterol/Ipratropium (Duoneb 3 Mg/0.5 Mg (3 Ml) Ud) 3 ml INH RQ4 [facility] Last Admin: 11/28/17 17:17 Dose: 3 ml Amlodipine Besylate (Norvasc) 5 mg PO DAILY [facility] Aspirin (Aspirin Chewable) 81 mg PO DAILY [facility] Last Admin: 11/28/17 10:50 Dose: 81 mg Azithromycin (Zithromax) 500 mg PO DAILY [facility] PRN Reason: Protocol Last Admin: 11/28/17 10:47 Dose: 500 mg Carvedilol (Coreg) 25 mg PO BID [facility] Last Admin: 11/28/17 10:45 Dose: 25 mg Dextrose (Dextrose 50% Inj) 0 ml IV STAT PRN; Protocol PRN Reason: Hypoglycemia Protocol Dextrose (Glutose 15) 0 gm PO ONCE PRN; Protocol PRN Reason: Hypoglycemia Protocol Furosemide (Lasix) 40 mg IVP BID [facility] Last Admin: 11/28/17 10:46 Dose: 40 mg Glucagon (Glucagen Diagnostic Kit) 0 mg IM STAT PRN; Protocol PRN Reason: Hypoglycemia Protocol Guaifenesin (Mucinex La) 600 mg PO Q12H [facility] Last Admin: 11/28/17 10:47 Dose: 600 mg Heparin Sodium (Porcine) (Heparin) 5,000 units SC Q12 [facility] Last Admin: 11/28/17 10:47 Dose: 5,000 units Hydralazine HCl (Apresoline) 100 mg PO Q8 [facility] Last Admin: 11/28/17 14:41 Dose: 100 mg Dextrose (Dextrose 5% In Water 1000 Ml) 1,000 mls @ 0 mls/hr IV .Q0M PRN; Protocol; Per Protocol PRN Reason: Hypoglycemia Protocol Cefepime HCl (Maxipime Iv 1 Gm Premix) 1 gm in 50 mls @ 100 mls/hr IVPB Q24H [facility] PRN Reason: Protocol Last Admin: 11/27/17 18:43 Dose: 100 mls/hr Insulin Aspart (Novolog) 3 unit SC AC [facility] Insulin Glargine (Lantus) 20 unit SC HS [facility] Insulin Human Regular (Novolin R) 0 unit SC ACHS [facility] PRN Reason: Protocol Last Admin: 11/28/17 12:30 Dose: 12 unit Methylprednisolone (Solu-Medrol) 40 mg IVP Q8H [facility] Last Admin: 11/28/17 12:57 Dose: 40 mg Montelukast Sodium (Singulair) 10 mg PO HS [facility] Last Admin: 11/27/17 22:55 Dose: 10 mg Pantoprazole Sodium (Protonix Ec Tab) 40 mg PO DAILY [facility] Last Admin: 11/28/17 11:17 Dose: 40 mg Rosuvastatin Calcium (Crestor) 10 mg PO [facility] Last Admin: 11/27/17 22:55 Dose: 10 mg Saccharomyces Boulardii (Florastor) 250 mg PO BID [facility] Last Admin: 11/28/17 10:49 Dose: 250 mg Sevelamer Carbonate (Renvela) 800 mg PO TIDCC [facility] Last Admin: 11/28/17 12:57 Dose: 800 mg - Labs Labs: 11/28/17 07:45 11/28/17 07:45 - Constitutional Appears: Non-toxic, Chronically Ill - Head Exam Head Exam: NORMOCEPHALIC - Eye Exam Eye Exam: PERRL - ENT Exam ENT Exam: Mucous Membranes Dry - Neck Exam Neck Exam: absent: Lymphadenopathy - Respiratory Exam Respiratory Exam: Decreased Breath Sounds - Cardiovascular Exam Cardiovascular Exam: REGULAR RHYTHM - GI/Abdominal Exam GI & Abdominal Exam: Distended, Soft - Rectal Exam Rectal Exam: Deferred - Exam Exam: NORMAL INSPECTION - Extremities Exam Extremities Exam: absent: Pedal Edema - Back Exam Back Exam: absent: CVA tenderness (L), CVA tenderness (R) - Neurological Exam Neurological Exam: Alert, Awake Assessment and Plan (1) Pneumonia Status: Acute (2) Renal failure Status: Acute (3) Anemia Status: Acute (4) Chronic congestive heart failure Status: Acute (5) Dyspnea Status: Acute (6) Elevated troponin Status: Acute (7) Hypertension Status: Acute (8) Left against medical advice Status: Acute
[2017-11-28] MEDS: (Novolog) Insulin Aspart, Recombinant 100 u/ml 10 ml vial SC SCH (18:06)
[2017-11-28] MEDS: Cefepime IV 1 gm in Dextrose 1 GM/50 ML BAG IVPB SCH (18:09)
--- NOTE | 2017-11-28 21:39 | CP.PCM.PN ---
Subjective - Date & Time of Evaluation Date of Evaluation: 11/28/17 Time of Evaluation: 21:39 - Subjective Subjective: Pulmonary Follow up Covering Dr. Klein The patient was Seen/interviewed and examined by me at the bedside, Events reviewed Pt AAO x3. Alert, follows commands Patient feels better, less dyspnic a Had HD yesterday Patient denies chest pain. I&O reviewed Afebrile, NSR on the monitor, Patient states has dyspnea on exertion, improves with supplemental oxygen No episodes of desaturation Patien on currently on 3L nasal cannula and on BIPAP at night AM Labs reviewed, No Leucocytosis Today 06/30 CXR: No radiographic evidence of acute cardiopulmonary disease. There is no evidence of pulmonary parenchymal consolidation or pleural effusion. Cardiomegaly, No Pul vascular congesion . Objective - Vital Signs/Intake and Output Vital Signs (last 24 hours): Temp Pulse Resp BP Pulse Ox 98.1 F 88 22 146/75 97 11/28/17 15:20 11/28/17 15:20 11/28/17 15:20 11/28/17 18:07 11/28/17 15:20 - Medications Medications: Current Medications Albuterol/Ipratropium (Duoneb 3 Mg/0.5 Mg (3 Ml) Ud) 3 ml INH RQ4 [facility] Last Admin: 11/28/17 19:37 Dose: 3 ml Amlodipine Besylate (Norvasc) 5 mg PO DAILY [facility] Aspirin (Aspirin Chewable) 81 mg PO DAILY [facility] Last Admin: 11/28/17 10:50 Dose: 81 mg Azithromycin (Zithromax) 500 mg PO DAILY [facility] PRN Reason: Protocol Last Admin: 11/28/17 10:47 Dose: 500 mg Carvedilol (Coreg) 25 mg PO BID [facility] Last Admin: 11/28/17 18:03 Dose: 25 mg Dextrose (Dextrose 50% Inj) 0 ml IV STAT PRN; Protocol PRN Reason: Hypoglycemia Protocol Dextrose (Glutose 15) 0 gm PO ONCE PRN; Protocol PRN Reason: Hypoglycemia Protocol Furosemide (Lasix) 40 mg IVP BID [facility] Last Admin: 11/28/17 18:07 Dose: 40 mg Glucagon (Glucagen Diagnostic Kit) 0 mg IM STAT PRN; Protocol PRN Reason: Hypoglycemia Protocol Guaifenesin (Mucinex La) 600 mg PO Q12H [facility] Last Admin: 11/28/17 10:47 Dose: 600 mg Heparin Sodium (Porcine) (Heparin) 5,000 units SC Q12 [facility] Last Admin: 11/28/17 10:47 Dose: 5,000 units Hydralazine HCl (Apresoline) 100 mg PO Q8 [facility] Last Admin: 11/28/17 14:41 Dose: 100 mg Dextrose (Dextrose 5% In Water 1000 Ml) 1,000 mls @ 0 mls/hr IV .Q0M PRN; Protocol; Per Protocol PRN Reason: Hypoglycemia Protocol Cefepime HCl (Maxipime Iv 1 Gm Premix) 1 gm in 50 mls @ 100 mls/hr IVPB Q24H [facility] PRN Reason: Protocol Last Admin: 11/28/17 18:09 Dose: 100 mls/hr Insulin Aspart (Novolog) 3 unit SC AC [facility] Last Admin: 11/28/17 18:06 Dose: 3 unit Insulin Glargine (Lantus) 20 unit SC HS [facility] Insulin Human Regular (Novolin R) 0 unit SC ACHS [facility] PRN Reason: Protocol Last Admin: 11/28/17 18:05 Dose: 10 unit Methylprednisolone (Solu-Medrol) 40 mg IVP Q8H [facility] Last Admin: 11/28/17 19:36 Dose: 40 mg Montelukast Sodium (Singulair) 10 mg PO [facility] Last Admin: 11/27/17 22:55 Dose: 10 mg Pantoprazole Sodium (Protonix Ec Tab) 40 mg PO DAILY [facility] Last Admin: 11/28/17 11:17 Dose: 40 mg Rosuvastatin Calcium (Crestor) 10 mg PO HS [facility] Last Admin: 11/27/17 22:55 Dose: 10 mg Saccharomyces Boulardii (Florastor) 250 mg PO BID [facility] Last Admin: 11/28/17 18:03 Dose: 250 mg Sevelamer Carbonate (Renvela) 800 mg PO TIDCC [facility] Last Admin: 11/28/17 18:00 Dose: 800 mg - Labs Labs: 11/28/17 07:45 11/28/17 07:45 - Constitutional Appears: Well, Non-toxic, No Acute Distress - Head Exam Head Exam: ATRAUMATIC, NORMAL INSPECTION, NORMOCEPHALIC - Eye Exam Eye Exam: EOMI, Normal appearance Pupil Exam: NORMAL ACCOMODATION, PERRL - ENT Exam ENT Exam: Mucous Membranes Moist, Normal Exam - Neck Exam Neck Exam: Full ROM, Normal Inspection - Respiratory Exam Respiratory Exam: Decreased Breath Sounds, Rales. absent: Accessory Muscle Use , Prolonged Expiratory Phase, Rhonchi, Wheezes - GI/Abdominal Exam GI & Abdominal Exam: Soft, Normal Bowel Sounds. absent: Distended, Guarding, Rigid - Extremities Exam Extremities Exam: Calf Tenderness, Full ROM, Normal Capillary Refill, Pedal Edema. absent: Joint Swelling - Back Exam Back Exam: absent: CVA tenderness (L), CVA tenderness (R) - Neurological Exam Neurological Exam: Alert, Altered, Awake, CN II-XII Intact, Motor Sensory Deficit, Normal Gait, Oriented x3 Assessment and Plan (1) Fluid overload Status: Acute (2) Pneumonia Status: Acute (3) Prophylactic measure Status: Acute (4) Renal failure Status: Acute (5) Asthma Status: Chronic (6) Cardiomyopathy Status: Chronic (7) ESRD (end stage renal disease) on dialysis Status: Chronic - Assessment and Plan (Free Text) Assessment: Assessment/Plan: 1. Respiratory failure sec to fluid overload and Pneumonia -WBC improvin.9 - Continue Duoneb - Continue Cefepime - Continue Solumedrol 2. Obstructive Sleep Apnea - Continue CPAP - Recommend sleep study outpatient to qualify for CPAP 3. End-Stage Renal Disease - Dialysis yesterday - Management per Primary Team 4. HTN - Management per Primary Team 5. Diabetes Mellitus - Management per primary team
[2017-11-29] MEDS: Albuterol-Ipratrop 3 mg / 0.5 (3 ml) UD INH SCH ×9 (00:25→23:37)
[2017-11-29] MEDS: MethylPREDNISolone 40 mg Vial IVP SCH (04:00)
[2017-11-29] MEDS: (Novolin R) Insulin Human Regular 100 units/ml vial SC SCH ×4 (06:51→21:55)
[2017-11-29 07:07] LABS: BASO % 0.1 % (0.0-2.0); EOS % 0.1 % (0.0-4.0); HEMOGLOBIN 9.4 g/dL (12.0-18.0); LYMPH # 0.2 K/uL (1.0-4.3); LYMPH % 1.4 % (20.0-40.0); MEAN CELL VOLUME 89.1 fL (80.0-94.0); MEAN CORPUSCULAR HEMOGLOBIN 30.2 pg (27.0-31.0); MEAN CORPUSCULAR HGB CONC 33.9 g/dL (33.0-37.0); MEAN PLATELET VOLUME 8.5 fL (7.2-11.7); MONO # 0.3 K/uL (0.0-0.8); MONO % 2.8 % (0.0-10.0); NEUT # 10.3 K/uL (1.8-7.0); NEUT % 95.6 % (50.0-75.0); PLATELET COUNT 121 K/uL (130-400); RED CELL DISTRIBUTION WIDTH 15.8 % (11.5-14.5); WHITE BLOOD COUNT 10.8 K/uL (4.8-10.8)
[2017-11-29 07:34] LABS: ALB/GLOB RATIO 1.1 (1.0-2.1); ALBUMIN 3.1 g/dL (3.5-5.0)
--- NOTE | 2017-11-29 07:54 | CP.PCM.PN ---
Subjective - Date & Time of Evaluation Date of Evaluation: 11/29/17 Time of Evaluation: 07:42 - Subjective Subjective: Sal Allen PGY1 Cardiology Progress Note for Dr. Presley Patient was seen and examined at bedside. he is clinically improving, and has been sleeping better with the CPAP machine. he denies shortness of breath at rest, chest pain, palpitations or headaches, n/v/d. Patient's glood glucose has been poorly controlled, and primary team has increased his insulin coverage. Objective - Vital Signs/Intake and Output Vital Signs (last 24 hours): Temp Pulse Resp BP Pulse Ox 98 F 80 20 124/68 97 11/29/17 04:20 11/29/17 04:20 11/29/17 04:20 11/29/17 04:20 11/28/17 23:15 Intake and Output: 11/29/17 11/29/17 06:59 18:59 Intake Total 450 Balance 450 - Medications Medications: Current Medications Albuterol/Ipratropium (Duoneb 3 Mg/0.5 Mg (3 Ml) Ud) 3 ml INH RQ4 [facility] Last Admin: 11/29/17 07:31 Dose: 3 ml Amlodipine Besylate (Norvasc) 5 mg PO DAILY [facility] Aspirin (Aspirin Chewable) 81 mg PO DAILY [facility] Last Admin: 11/28/17 10:50 Dose: 81 mg Azithromycin (Zithromax) 500 mg PO DAILY [facility] PRN Reason: Protocol Last Admin: 11/28/17 10:47 Dose: 500 mg Carvedilol (Coreg) 25 mg PO BID [facility] Last Admin: 11/28/17 18:03 Dose: 25 mg Dextrose (Dextrose 50% Inj) 0 ml IV STAT PRN; Protocol PRN Reason: Hypoglycemia Protocol Dextrose (Glutose 15) 0 gm PO ONCE PRN; Protocol PRN Reason: Hypoglycemia Protocol Furosemide (Lasix) 40 mg IVP BID [facility] Last Admin: 11/28/17 18:07 Dose: 40 mg Glucagon (Glucagen Diagnostic Kit) 0 mg IM STAT PRN; Protocol PRN Reason: Hypoglycemia Protocol Guaifenesin (Mucinex La) 600 mg PO Q12H [facility] Last Admin: 11/28/17 22:33 Dose: 600 mg Heparin Sodium (Porcine) (Heparin) 5,000 units SC Q12 [facility] Last Admin: 11/28/17 22:38 Dose: Not Given Hydralazine HCl (Apresoline) 100 mg PO Q8 [facility] Last Admin: 11/29/17 05:44 Dose: 100 mg Dextrose (Dextrose 5% In Water 1000 Ml) 1,000 mls @ 0 mls/hr IV .Q0M PRN; Protocol; Per Protocol PRN Reason: Hypoglycemia Protocol Cefepime HCl (Maxipime Iv 1 Gm Premix) 1 gm in 50 mls @ 100 mls/hr IVPB Q24H [facility] PRN Reason: Protocol Last Admin: 11/28/17 18:09 Dose: 100 mls/hr Insulin Aspart (Novolog) 3 unit SC AC [facility] Last Admin: 11/28/17 18:06 Dose: 3 unit Insulin Glargine (Lantus) 20 unit SC HS [facility] Last Admin: 11/28/17 22:34 Dose: 20 units Insulin Human Regular (Novolin R) 0 unit SC ACHS [facility] PRN Reason: Protocol Last Admin: 11/29/17 06:51 Dose: 12 unit Methylprednisolone (Solu-Medrol) 40 mg IVP Q8H [facility] Last Admin: 11/29/17 04:00 Dose: 40 mg Montelukast Sodium (Singulair) 10 mg PO [facility] Last Admin: 11/28/17 22:33 Dose: 10 mg Pantoprazole Sodium (Protonix Ec Tab) 40 mg PO DAILY [facility] Last Admin: 11/28/17 11:17 Dose: 40 mg Rosuvastatin Calcium (Crestor) 10 mg PO [facility] Last Admin: 11/28/17 22:33 Dose: 10 mg Saccharomyces Boulardii (Florastor) 250 mg PO BID [facility] Last Admin: 11/28/17 18:03 Dose: 250 mg Sevelamer Carbonate (Renvela) 800 mg PO TIDCC [facility] Last Admin: 11/28/17 18:00 Dose: 800 mg - Labs Labs: 11/29/17 07:01 11/29/17 07:01 - Additional Findings Additional findings: - Constitutional Appears: Well, Non-toxic, No Acute Distress - Head Exam Head Exam: NORMAL INSPECTION - Eye Exam Eye Exam: Normal appearance Pupil Exam: NORMAL ACCOMODATION - ENT Exam ENT Exam: Mucous Membranes Moist - Neck Exam Neck exam: Positive for: Normal Inspection - Respiratory Exam Respiratory Exam: Clear to auscultation, NORMAL BREATHING PATTERN. absent: Rhonchi, Wheezes, Rales - Cardiovascular Exam Cardiovascular Exam: RRR, +S1, +S2 - GI/Abdominal Exam GI & Abdominal Exam: Normal Bowel Sounds, Soft. absent: Distended, Tenderness - Extremities Exam Extremities exam: Positive for: normal inspection. absent: Pedal Edema - Back Exam Back exam: NORMAL INSPECTION - Neurological Exam Neurological exam: Alert - Psychiatric Exam Psychiatric exam: Normal Affect, Normal Mood - Skin Skin Exam: Normal Color Assessment & Plan - Assessment and Plan (Free Text) Assessment: 57 yo male with past medical hx of left renal mass w/ planned left radical nephrectomy (12/2017), CHF w/ pacemaker placement, ESRD on HD asthma, HTN , DM2, sleep apnea and morbid obesity who presented with complaints of shortness of breath x2 weeks likely 2/2 pneumonia +/- CHF exacerbation. Plan: 1. Dyspnea - given fluctuations in SBP, patient is likely fluid overloaded and symptoms/ SBP improves during and post dialysis - continue strict diuresis; Lasix (pt states he takes Lasix at home irregularly on days when he doesn't have HD) - daily weight checks, limit fluid intake and strict I/O - CT Chest showed diffuse pulm infiltrates and mild ascending thoracic aortic aneurysm 4.3cm - Lung V/Q scan showed low probability for pulm embolism - BNP is mildly elevated but at baseline is elevated from prior visits - Troponin also chronically elevated due to ESRD - ABG reviewed, doesn't show severe hypoxia - patient's symptoms are improving - cont singulair - should decrease solumedrol dose given hyperglycemia and no wheezing/dyspnea present at rest - CPAP PRN - cont cefepime empirically - blood cultures negative - cont duoneb [facility] 2. CHF w/ PPM - reports from PMD indicated EF < 30% - Echo done at shows EF 36% - cont ASA, coreg according to the COPERNICUS and COMET trials - Spironolactone recommended due to EF <35% (RALES trial), however, due to AHA/ ACCF HF guidelines, will hold due to ESRD and Cr >2.5 - ACEi recommended due to Karina-HeFT trial, however, due to AHA/ACCF HF guidelines and medication non-compliance and risk of hyperkalemia, will hold due to ESRD - cont Hydralazine 3. ESRD on HD and DM - cont HD - strict glycemic control - planned for radical left nephrectomy due to tumor 4. sleep apnea - plan for outpatient sleep study - cont on CPAP machine PRN sleep Patient was reviewed and discussed with Dr. Presley
[2017-11-29] MEDS: (Novolog) Insulin Aspart, Recombinant 100 u/ml 10 ml vial SC SCH ×3 (08:12→17:45)
[2017-11-29 08:54] LABS: LYMPHOCYTE 4 % (20-40); MONOCYTE 2 % (0-10); NEUTROPHIL 94 % (50-75); PLATELET ESTIMATE SLIGHTLY DECREASED (NORMAL); TOTAL CELLS COUNTED 100
[2017-11-29 08:55] LABS: ANISOCYTOSIS SLIGHT; HYPOCHROMIC SLIGHT; POLYCHROMIC SLIGHT
[2017-11-29] MEDS: Pantoprazole 40 mg EC Tab PO SCH (10:00)
[2017-11-29] MEDS ORDERED: MethylPREDNISolone 40 mg Vial IVP SCH (10:00)
[2017-11-29] MEDS: Saccharomyces Boulardi 250 mg Cap PO SCH ×2 (10:00→17:45)
--- NOTE | 2017-11-29 10:13 | CP.PCM.PN ---
Subjective - Date & Time of Evaluation Date of Evaluation: 11/29/17 Time of Evaluation: 10:13 - Subjective Subjective: pt is seen and examined, follow up consult is dictated #[id number] seen in hd , uf goal is 3-4 lit as tolerated Objective - Vital Signs/Intake and Output Vital Signs (last 24 hours): Temp Pulse Resp BP Pulse Ox 97.8 F 75 20 153/79 H 97 11/29/17 09:40 11/29/17 09:40 11/29/17 09:40 11/29/17 09:40 11/29/17 09:40 Intake and Output: 11/29/17 11/29/17 06:59 18:59 Intake Total 450 Balance 450 - Medications Medications: Current Medications Albuterol/Ipratropium (Duoneb 3 Mg/0.5 Mg (3 Ml) Ud) 3 ml INH RQ4 [facility] Last Admin: 11/29/17 07:31 Dose: 3 ml Amlodipine Besylate (Norvasc) 5 mg PO DAILY [facility] Aspirin (Aspirin Chewable) 81 mg PO DAILY [facility] Last Admin: 11/28/17 10:50 Dose: 81 mg Azithromycin (Zithromax) 500 mg PO DAILY [facility] PRN Reason: Protocol Last Admin: 11/28/17 10:47 Dose: 500 mg Carvedilol (Coreg) 25 mg PO BID [facility] Last Admin: 11/28/17 18:03 Dose: 25 mg Dextrose (Dextrose 50% Inj) 0 ml IV STAT PRN; Protocol PRN Reason: Hypoglycemia Protocol Dextrose (Glutose 15) 0 gm PO ONCE PRN; Protocol PRN Reason: Hypoglycemia Protocol Furosemide (Lasix) 40 mg IVP BID [facility] Last Admin: 11/28/17 18:07 Dose: 40 mg Glucagon (Glucagen Diagnostic Kit) 0 mg IM STAT PRN; Protocol PRN Reason: Hypoglycemia Protocol Guaifenesin (Mucinex La) 600 mg PO Q12H [facility] Last Admin: 11/28/17 22:33 Dose: 600 mg Heparin Sodium (Porcine) (Heparin) 5,000 units SC Q12 [facility] Last Admin: 11/28/17 22:38 Dose: Not Given Hydralazine HCl (Apresoline) 100 mg PO Q8 [facility] Last Admin: 11/29/17 05:44 Dose: 100 mg Dextrose (Dextrose 5% In Water 1000 Ml) 1,000 mls @ 0 mls/hr IV .Q0M PRN; Protocol; Per Protocol PRN Reason: Hypoglycemia Protocol Cefepime HCl (Maxipime Iv 1 Gm Premix) 1 gm in 50 mls @ 100 mls/hr IVPB Q24H [facility] PRN Reason: Protocol Last Admin: 11/28/17 18:09 Dose: 100 mls/hr Insulin Aspart (Novolog) 3 unit SC AC [facility] Last Admin: 11/29/17 08:12 Dose: 3 unit Insulin Glargine (Lantus) 20 unit SC HS [facility] Last Admin: 11/28/17 22:34 Dose: 20 units Insulin Human Regular (Novolin R) 0 unit SC ACHS [facility] PRN Reason: Protocol Last Admin: 11/29/17 06:51 Dose: 12 unit Methylprednisolone (Solu-Medrol) 40 mg IVP Q12 [facility] Montelukast Sodium (Singulair) 10 mg PO HS [facility] Last Admin: 11/28/17 22:33 Dose: 10 mg Pantoprazole Sodium (Protonix Ec Tab) 40 mg PO DAILY [facility] Last Admin: 11/28/17 11:17 Dose: 40 mg Rosuvastatin Calcium (Crestor) 10 mg PO HS [facility] Last Admin: 11/28/17 22:33 Dose: 10 mg Saccharomyces Boulardii (Florastor) 250 mg PO BID [facility] Last Admin: 11/28/17 18:03 Dose: 250 mg Sevelamer Carbonate (Renvela) 800 mg PO TIDCC [facility] Last Admin: 11/29/17 08:13 Dose: 800 mg - Labs Labs: 11/29/17 07:01 11/29/17 07:01
[2017-11-29] MEDS: guaiFENesin 600 mg ER Tab PO SCH ×2 (11:15→23:03)
--- NOTE | 2017-11-29 14:14 | CP.PCM.PN ---
Addendum entered and electronically signed by Quita Lake DO 11/29/17 17:13 : 2/2 LVEF < 30% will STOP norvasc, add imdur/ Decreased lantus to 10mg. Steroids were stopped. - Will resume home medication of tradjenta upon discharge. Original Note: <Quita Lake - Last Filed: 11/29/17 14:11> Subjective - Date & Time of Evaluation Date of Evaluation: 11/29/17 Time of Evaluation: 09:00 - Subjective Subjective: Medicine Note for Hospitalist Service - Dr. Mert Black Patient was seen and examined at bedside during dialysis, CPAP on. Patient reports his breathing has much improved. Denied fever, chills, headache, chest pain, SOB, abdominal pain, n/v/d/c, or urinary symptoms. Objective - Vital Signs/Intake and Output Vital Signs (last 24 hours): Temp Pulse Resp BP Pulse Ox 97.8 F 76 21 158/85 H 98 11/29/17 09:40 11/29/17 13:20 11/29/17 13:20 11/29/17 13:20 11/29/17 13:20 Intake and Output: 11/29/17 11/29/17 06:59 18:59 Intake Total 450 Balance 450 - Medications Medications: Current Medications Acetylcysteine (Acetylcysteine 20%) 4 ml INH ONCE ONE Stop: 11/29/17 15:01 Albuterol/Ipratropium (Duoneb 3 Mg/0.5 Mg (3 Ml) Ud) 3 ml INH RQ4 [facility] Last Admin: 11/29/17 11:59 Dose: Not Given Amlodipine Besylate (Norvasc) 5 mg PO DAILY [facility] Last Admin: 11/29/17 10:00 Dose: Not Given Aspirin (Aspirin Chewable) 81 mg PO DAILY [facility] Last Admin: 11/29/17 10:00 Dose: Not Given Azithromycin (Zithromax) 500 mg PO DAILY [facility] PRN Reason: Protocol Last Admin: 11/29/17 10:00 Dose: Not Given Carvedilol (Coreg) 25 mg PO BID [facility] Last Admin: 11/29/17 10:00 Dose: Not Given Dextrose (Dextrose 50% Inj) 0 ml IV STAT PRN; Protocol PRN Reason: Hypoglycemia Protocol Dextrose (Glutose 15) 0 gm PO ONCE PRN; Protocol PRN Reason: Hypoglycemia Protocol Furosemide (Lasix) 40 mg IVP BID [facility] Last Admin: 11/29/17 10:00 Dose: Not Given Glucagon (Glucagen Diagnostic Kit) 0 mg IM STAT PRN; Protocol PRN Reason: Hypoglycemia Protocol Guaifenesin (Mucinex La) 600 mg PO Q12H [facility] Last Admin: 11/28/17 22:33 Dose: 600 mg Heparin Sodium (Porcine) (Heparin) 5,000 units SC Q12 [facility] Last Admin: 11/29/17 10:00 Dose: Not Given Hydralazine HCl (Apresoline) 100 mg PO Q8 [facility] Last Admin: 11/29/17 05:44 Dose: 100 mg Dextrose (Dextrose 5% In Water 1000 Ml) 1,000 mls @ 0 mls/hr IV .Q0M PRN; Protocol; Per Protocol PRN Reason: Hypoglycemia Protocol Cefepime HCl (Maxipime Iv 1 Gm Premix) 1 gm in 50 mls @ 100 mls/hr IVPB Q24H [facility] PRN Reason: Protocol Last Admin: 11/28/17 18:09 Dose: 100 mls/hr Insulin Aspart (Novolog) 3 unit SC AC [facility] Last Admin: 11/29/17 08:12 Dose: 3 unit Insulin Glargine (Lantus) 20 unit SC HS [facility] Last Admin: 11/28/17 22:34 Dose: 20 units Insulin Human Regular (Novolin R) 0 unit SC ACHS [facility] PRN Reason: Protocol Last Admin: 11/29/17 06:51 Dose: 12 unit Montelukast Sodium (Singulair) 10 mg PO HS [facility] Last Admin: 11/28/17 22:33 Dose: 10 mg Pantoprazole Sodium (Protonix Ec Tab) 40 mg PO DAILY [facility] Last Admin: 11/29/17 10:00 Dose: Not Given Rosuvastatin Calcium (Crestor) 10 mg PO HS [facility] Last Admin: 11/28/17 22:33 Dose: 10 mg Saccharomyces Boulardii (Florastor) 250 mg PO BID [facility] Last Admin: 11/29/17 10:00 Dose: Not Given Sevelamer Carbonate (Renvela) 800 mg PO TIDCC [facility] Last Admin: 11/29/17 08:13 Dose: 800 mg Trazodone HCl (Desyrel) 50 mg PO HS [facility] Stop: 11/30/17 22:01 - Labs Labs: 11/29/17 07:01 11/29/17 07:01 - Constitutional Appears: No Acute Distress - Head Exam Head Exam: NORMAL INSPECTION, NORMOCEPHALIC - Eye Exam Eye Exam: EOMI, Normal appearance, PERRL. absent: Nystagmus, Scleral icterus Pupil Exam: NORMAL ACCOMODATION - ENT Exam ENT Exam: Mucous Membranes Dry - Respiratory Exam Respiratory Exam: Wheezes (expiratory ) - Cardiovascular Exam Cardiovascular Exam: Murmur - GI/Abdominal Exam GI & Abdominal Exam: Soft, Normal Bowel Sounds. absent: Distended, Tenderness, Organomegaly - Rectal Exam Rectal Exam: Deferred - Extremities Exam Extremities Exam: Pedal Edema (+ 1 up to tibia bilaterally R> L ) - Neurological Exam Neurological Exam: Alert, Awake, Oriented x3 - Psychiatric Exam Psychiatric exam: Normal Affect, Normal Mood - Skin Skin Exam: Dry, Intact, Normal Color, Warm Assessment and Plan - Assessment and Plan (Free Text) Plan: Fluid Overload * Contributing factors: ESRD (MWF? - old schedule was ), Cardiomyopathy , Obesity, history of noncompliance Cardiomyopathy with PPM EF <30% * Cardiology Consult: Dr. Presley on board help appreciated * Per prior workup from his hog slaughterer (Dr. Harmony Brown office) * Echocardiogram (08/10/17): EF: 27 percent w. mild aortic stenos and small ASD w / right to left shunt * LHC (08/05/17): no ischemic CAD * Spironolactone recommended due to EF <35% (RALES trial), however, due to AHA/ ACCF HF guidelines, will hold due to ESRD and Cr >2.5 * ACEi recommended due to Karina-HeFT trial, however, due to AHA/ACCF HF guidelines , will hold due to ESRD * elevated troponin attributed to ESRD * Fluid restriction * intake and outputs * Aspirin 81mg PO daily * Coreg 25 mg PO BID * Crestor 10mg POqHS * Norvasc 5mg PO daily * Hydralazine 100mg PO Q8H Pneumonia * Pulmonary (Dr. Klein) on board-->help appreciated * Infectious Disease (Dr. Rosales) on the case-->help appreciated * had septic presentation and received antibiotics before AMA; consider empiric 7 day course * c/w Cefepime 1 gram IV Q24H (Active since 11/25/17) * c/w Azithromycin 500mg PO daily (active since 11/27/17) * CT Chest (11/25/17): widespread diffuse pulmonary infiltrates are appreciate with subtle ground-glass component likely reflecting pneumonia no inflammatory process is not excluded. No significant lymphadenopathy grossly evident in this unenhanced exam. Pulmonary artery hypertension is in question. Mild ascending thoracic aneurysm 4.3 cm greatest dimension terminating at the anterior arch * V/Q scan (11/25/17): low probability ventilation perfusion scan for pulmonary embolism * Patient refused repeat ABG for today (11/26/17) * Legionella: cancelled Mycoplasma Igm: negative * Mucinex 600mg PO BID * Duoneb 3cc INH Q4H [facility] * Singulair 10mg PO qHS * Blood Culture (11/24/17): negative to date * Blood culture (11/25/17): negative to date ESRD MWF * Nephrology consult (Dr. Boswell) on consult * ESRD (Wednesday//Wednesday)- will be changed to MWF * Renvela 800mg PO TIDCC * Discussed with nephrology, recommends for patient to have 3 dialysis sessions a week; he easily fluid retains-->patient is not amenable to increase the number of dialysis sessions. 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 Sydney Bartlett History of Sleep apnea * CPAP at night * Recommend sleep study outpatient to qualify for CPAP-->will f/u with Dr. Klein when stable Thoracic Aneursym * CT Chest: Mild ascending thoracic aneurysm 4.3 cm greatest dimension terminating at the anterior arch. Will need to follow up in 6-12 months Prophylactic care * Heparin 5000 units [id number] * Protonix 40mg PO daily * Florastor 250mg PO BID Disposition: Continue for IV abx (will need 7 days of empiric treatment. Pending pulmonary and nephrology clearance for discharge given patient's fluid overload state. DW Quita Ferrera DO, PGY-1 <Mert Black J - Last Filed: 11/29/17 18:55> Objective - Vital Signs/Intake and Output Vital Signs (last 24 hours): Temp Pulse Resp BP Pulse Ox 97.9 F 76 20 166/87 H 97 11/29/17 15:00 11/29/17 15:00 11/29/17 15:00 11/29/17 17:47 11/29/17 15:00 Intake and Output: 11/29/17 11/29/17 06:59 18:59 Intake Total 450 Balance 450 - Medications Medications: Current Medications Albuterol/Ipratropium (Duoneb 3 Mg/0.5 Mg (3 Ml) Ud) 3 ml INH RQ4 [facility] Last Admin: 11/29/17 17:44 Dose: Not Given Aspirin (Aspirin Chewable) 81 mg PO DAILY [facility] Last Admin: 11/29/17 14:33 Dose: 81 mg Azithromycin (Zithromax) 500 mg PO DAILY [facility] PRN Reason: Protocol Last Admin: 11/29/17 14:33 Dose: 500 mg Carvedilol (Coreg) 25 mg PO BID [facility] Last Admin: 11/29/17 17:44 Dose: 25 mg Dextrose (Dextrose 50% Inj) 0 ml IV STAT PRN; Protocol PRN Reason: Hypoglycemia Protocol Dextrose (Glutose 15) 0 gm PO ONCE PRN; Protocol PRN Reason: Hypoglycemia Protocol Furosemide (Lasix) 40 mg IVP BID [facility] Last Admin: 11/29/17 17:47 Dose: 40 mg Glucagon (Glucagen Diagnostic Kit) 0 mg IM STAT PRN; Protocol PRN Reason: Hypoglycemia Protocol Guaifenesin (Mucinex La) 600 mg PO Q12H [facility] Last Admin: 11/29/17 11:15 Dose: Not Given Heparin Sodium (Porcine) (Heparin) 5,000 units SC Q12 [facility] Last Admin: 11/29/17 10:00 Dose: Not Given Hydralazine HCl (Apresoline) 100 mg PO Q8 [facility] Last Admin: 11/29/17 14:33 Dose: 100 mg Dextrose (Dextrose 5% In Water 1000 Ml) 1,000 mls @ 0 mls/hr IV .Q0M PRN; Protocol; Per Protocol PRN Reason: Hypoglycemia Protocol Cefepime HCl (Maxipime Iv 1 Gm Premix) 1 gm in 50 mls @ 100 mls/hr IVPB Q24H [facility] PRN Reason: Protocol Last Admin: 11/29/17 17:48 Dose: 100 mls/hr Insulin Aspart (Novolog) 3 unit SC AC [facility] Last Admin: 11/29/17 17:45 Dose: 3 unit Insulin Glargine (Lantus) 10 unit SC HS [facility] Insulin Human Regular (Novolin R) 0 unit SC ACHS [facility] PRN Reason: Protocol Last Admin: 11/29/17 17:46 Dose: 12 unit Isosorbide Mononitrate (Imdur Er) 30 mg PO DAILY [facility] Montelukast Sodium (Singulair) 10 mg PO [facility] Last Admin: 11/28/17 22:33 Dose: 10 mg Pantoprazole Sodium (Protonix Ec Tab) 40 mg PO DAILY [facility] Last Admin: 11/29/17 10:00 Dose: Not Given Rosuvastatin Calcium (Crestor) 10 mg PO [facility] Last Admin: 11/28/17 22:33 Dose: 10 mg Saccharomyces Boulardii (Florastor) 250 mg PO BID [facility] Last Admin: 11/29/17 17:45 Dose: 250 mg Sevelamer Carbonate (Renvela) 800 mg PO TIDCC [facility] Last Admin: 11/29/17 17:45 Dose: 800 mg Trazodone HCl (Desyrel) 50 mg PO [facility] Stop: 11/30/17 22:01 - Labs Labs: 11/29/17 07:01 11/29/17 07:01 Attending/Attestation - Attestation I have personally seen and examined this patient.: Yes I have fully participated in the care of the patient.: Yes I have reviewed all pertinent clinical information, including history, physical exam and plan: Yes Notes (Text): 11/29/17 18:53 Patient was seen and examined in HD with resident Dr. Lake. Also on Assessment and Plan: Anemia of Chronic Disease Secondary to ESRD: Monitor Hgb/Hct Asthma: added Advair 250/50 2 1 puff INH Q12H Will speak with Injection Molding Machine Offbearer/Childcare Administrator 11/30/17 starting JOSE placement. Mert Black D.O. 11/29/17 18:54
[2017-11-29] MEDS ORDERED: Acetylcysteine 20% Inhal Soln (4ml) INH ONE ×2 (15:00→20:15)
[2017-11-29] MEDS ORDERED: (Lantus) Insulin Glargine, Recombinant SC SCH (16:34)
--- NOTE | 2017-11-29 16:50 | PN ---
DATE: FOLLOWUP RENAL CONSULTATION LOCATION: Patient is located in room 662, bed A. REQUESTED BY: Dr. Rosangela Lin. REASON FOR FOLLOWUP: End-stage renal disease, continuation of hemodialysis. HISTORY OF PRESENT ILLNESS: Mr. Mehta is a 57-year-old obese male with a past medical history significant for longstanding hypertension, diabetes, cardiomyopathy, status post AICD placement and asthma, COPD, end-stage renal disease, on hemodialysis two times a week with left renal mass, scheduled for partial nephrectomy robotic on 12/14/2017, who was admitted with the chief complaints of cough, shortness of breath, which he was getting worse on p.o. antibiotics prescribed by PMD. The patient was found to have bilateral pneumonia and CHF, started on hemodialysis on and Wednesday and the patient is back to his regular schedule today. The patient was complaining of shortness of breath early this morning. The patient claims his breathing is getting worse with inhaler treatment. The patient seen and examined during hemodialysis. The UF goal is about 3.5 to 4 liters as tolerated. Now the patient is requesting three times a week dialysis. PHYSICAL EXAMINATION: VITAL SIGNS: As follows, blood pressure of 153/79, pulse 75, respirations 20, saturation 97%, and temperature 97.8. Height 5 feet 6 inches, weight is 300 pounds. GENERAL: Mr. Mehta is a 57-year-old middle-aged obese male, well-built, well-nourished, not in distress. HEENT: Pupils normal and reactive to light and accommodation. Conjunctiva pink. Sclerae anicteric. Tongue is moist and trachea is midline. LUNGS: Symmetrical on both sides. Bilateral breath sounds present. Occasional expiratory wheeze present. CVS: [place] at the fifth intercostal space and midclavicular line. S1 and S3 audible. No murmur or gallop. ABDOMEN: Soft, tympanic. No guarding. No hepatosplenomegaly. Protuberant. 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 Nonfocal neuro examination. Cranial nerves II-XII grossly intact. Sensory and motor system is within normal limits. EXTREMITIES: No cyanosis, no clubbing. The patient has trace edema in both lower extremities. MEDICATIONS: Include hydralazine 100 mg p.o. every 8 hours, aspirin 81 mg daily, Coreg 25 mg p.o. b.i.d., Crestor 10 mg p.o. at bedtime, DuoNeb inhaler, Florstar, subcu heparin 5000 q.2 hours, Lantus 20 units subcu at bedtime and Lasix 40 mg IV b.i.d., cefepime 1 g every 24 hours, Mucinex and amlodipine 5 mg daily, Novolin R per sliding scale, Protonix 40 mg p.o. daily, Renvela 800 mg p.o. t.i.d. and Singulair 10 mg at bedtime, Solu-Medrol 40 mg IV every 12 hours, azithromycin 500 milligrams p.o. daily. LABORATORY DATA: Include as follows: WBC 10.8, hemoglobin 9.4, hematocrit is 27.6, platelets 121. Sodium 131, potassium 5.8, chloride 98, CO 21, BUN 82, creatinine 5.4, glucose 471, calcium 8, phosphorus 4.6, magnesium 2.1. Total bili 0.4, AST 23, ALT 36, alkaline phosphatase 68, total protein 6, albumin is 3.1. The chest x-ray as of 11/28/2017 with stable cardiomegaly, no acute infiltrate or pleural effusion identified in the interval pulmonary vascular congestion. ASSESSMENT AND PLAN: In summary, Mr. Mehta is a 57-year-old obese male with history of hypertension, diabetes, cardiomyopathy, left renal mass, status post automatic implantable cardioverter-defibrillator, asthma, chronic obstructive pulmonary disease, was admitted with cough and shortness of breath and being treated for congestive heart failure versus pneumonia, on intravenous antibiotic. 1. End-stage renal disease. Continue hemodialysis three times a week as requested by the patient on Wednesday, Wednesday and Wednesday. We will notify the dialysis unit if the patient is discharged tomorrow, we will schedule for dialysis outpatient on Wednesday. 2. Hypertension. Blood pressure stable. Continue his current medications; hydralazine, Coreg and Norvasc. 3. Anemia secondary to renal failure. Continue Procrit three times a week due to dialysis. 4. Pneumonia versus congestive heart failure. Continue antibiotics and restrict fluids to 1.5 liters. 5. Left renal mass. Follow up with Urology as an outpatient for a scheduled surgery. We will follow with you. Thank you for allowing me to participate in your patient's care. Continue Renvela and Zemplar and also Procrit during dialysis. Ultrafiltration goal is about 4 liters. Talya Vogel MD
[2017-11-29] MEDS: Cefepime IV 1 gm in Dextrose 1 GM/50 ML BAG IVPB SCH (17:48)
[2017-11-30] MEDS: Albuterol-Ipratrop 3 mg / 0.5 (3 ml) UD INH SCH ×6 (03:11→23:50)
--- NOTE | 2017-11-30 07:09 | CON ---
DATE: 11/25/2017 REQUESTED BY: Dr. Rosangela Lin. LOCATION: 2, bed A. REASON FOR RENAL CONSULTATION: Shortness of breath, fever and continuation hemodialysis. HISTORY OF PRESENT ILLNESS: Mr. Mehta is a 57 years old elderly male with a past medical history significant for asthma, hypertension, diabetes, cardiomyopathy, status post AICD placement and also left renal mass scheduled for surgery sometime in 12/2017 admitted with chief complaints of shortness of breath for the last 2-3 days and also complains of fever and complains of chest tightness when he takes a deep breath, unable to hold the breath. The patient is on hemodialysis two times a week and the patient was seen last time in dialysis on Wednesday, weight gain about 5.2 liters and requested only 3.5 liters unable to tolerate more than 3.5 liters due to cramps and the patient was offered extra dialysis. The patient has recently seen his PMD for similar symptoms and given oral antibiotics without significant relief and the patient presented to the emergency room with shortness of breath. The patient is on the BiPAP and feeling slightly better with BiPAP. Denies any chest pain. Denies any headache, dizziness. Denies any nausea, vomiting, diarrhea. Denies any dysuria or frequency. PAST MEDICAL HISTORY: Significant for hypertension, diabetes, end-stage renal disease, asthma, cardiomyopathy and left renal mass. PAST SURGICAL HISTORY Status post right internal jugular Perm-A-Cath and left forearm AV fistula and also left subclavian AICD placement. ALLERGIES: NO KNOWN DRUG ALLERGIES. SOCIAL HISTORY The patient denies any smoking, alcohol, drugs. FAMILY HISTORY: Mother with [place]. Father living, no medical issues. CURRENT MEDICATIONS: Hydralazine 100 mg p.o. every 8 hours, aspirin 81 mg daily, Coreg 12.5 mg b.i.d., Crestor 10 mg at bedtime, DuoNeb inhaler and also subcu heparin 5000 units every 12 hours, Lasix 40 mg IV b.i.d., cefepime 1 gm every 24 hours, Mucinex, Novolin R for sliding scale, Protonix 40 mg p.o. daily, Renvela 800 mg p.o. t.i.d., Singulair 10 mg at bedtime and Solu-Medrol 40 mg IV every 8 hours. SOCIAL HISTORY: No smoking, no alcohol, no drugs. REVIEW OF SYSTEMS: Significant for cough, shortness of breath and fever. All other review of systems are reviewed and are negative. PHYSICAL EXAMINATION: VITAL SIGNS: Blood pressure this morning is 172/112, respirations 20, temperature 100.3, saturation 96%. Height 5 feet 6 inches, weight is 292 pounds. GENERAL: Mr. Mehta is a 57 years old middle-aged obese male, well-built, well-nourished, on BiPAP. HEENT: Pupils normal, react to light and accommodation. Conjunctivae pink. Sclerae anicteric. Tongue is moist. Trachea is midline. LUNGS: Symmetric on both sides. Bilateral breath sounds present. Bilateral basal crackles present. CVS: [place] at the fifth intercostal space, midclavicular line. S1 and S2 audible. No murmur or gallop. ABDOMEN: Normal in appearance, soft, tympanic. No guarding, no rigidity. No hepatosplenomegaly. No abdominal bruit, protuberant. 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 Nonfocal neuro examination. Cranial nerves II through XII grossly intact. Sensory and motor system is within normal limits. EXTREMITIES: No cyanosis, no clubbing. The patient has 1+ edema in both lower extremities. The patient has a left upper extremity AV fistula with good bruit. LABORATORY DATA: As of 11/24/2017; WBC 11.8, hemoglobin 10.7, hematocrit is 31.7, platelets 199. As of 11/25/2017; WBC 11.7, hemoglobin 10.3, hematocrit 30 and platelets 157. As of 11/24/2017; sodium 140, potassium 3.8, chloride 99, CO2 29, BUN 78, creatinine 4.8, glucose 164, calcium 7.6, total bili 0.8, AST 26, ALT 41, alkaline phosphatase 68. As of 11/25/2017; sodium 139, potassium 3.8, chloride 100, CO 29, BUN 81, creatinine 4.8, glucose 173, , calcium 8, total bili 0.9, AST 24, ALT 39, alkaline phosphatase 63, total protein 6.1, albumin is 3.2, cholesterol 187, triglyceride 424, LDL 64, HDL 28, free thyroxine is 0.97, TSH is 2.37 and proBNP 5990, troponin 0.247 and 0.247. Influenza A and B is negative. Urine Legionella antigen is pending and mycoplasma antibody is negative. Chest x-ray as of 11/24/2017, impression; moderate pulmonary vascular congestion, diffuse bilateral air space opacities greater on the right lung findings favor pulmonary edema; however, infectious or inflammatory process cannot be excluded, cardiomegaly. V/Q scan as of 11/25/2017 low probability for V/Q scan for pulmonary embolism. CT of the chest as of 11/25/2017, impression; wide spread diffuse pulmonary infiltrates are appreciated with subcircle ground glass component, likely reflecting pneumonia, inflammatory process is not excluded, no significant lymphadenopathy grossly evident on enhanced exam. Pulmonary hypertension is in question, clinically correlate mild ascending right kidney is 4.3 cm greater dimensional terminating at the anterior arch. ASSESSMENT AND PLAN: In summary, Mr. Mehta is a 57 years old obese middle-aged male with history of hypertension, diabetes, cardiomyopathy, status post automatic implantable cardioverter-defibrillator placement, asthma, chronic obstructive pulmonary disease, left renal mass on hemodialysis two times a week, Wednesday and Wednesday was admitted with chief complaints of cough, shortness of breath and low grade fever for the last 4 days with CAT scan and chest x-ray consistent with diffuse infiltrates and elevated white count. 1. End-stage renal disease. Continue hemodialysis. The patient may benefit three times a week. We will discuss with the patient and once he symptomatically feels much better, we will schedule for hemodialysis today, we will try to ultrafiltrate as tolerated 3-4 liters. Discussed with the patient agreed for the plan. 2. Uncontrolled hypertension. Continue his current medication, hydralazine and Coreg and restrict fluids to 1500 mL per day. 3. Pneumonia. Continue IV antibiotics as per the primary team. 4. Left renal mass, awaiting for the robotic partial nephrectomy. Follow up with Urology as an outpatient. Continue phosphate binders, Renvela and continue Procrit and Nephro-Berry. We will follow with you. Thank you for allowing me to participate in your patient's care. Talya Vogel MD [facility] # [id number]
[2017-11-30 07:29] LABS: BASO % 0.1 % (0.0-2.0); EOS % 0.2 % (0.0-4.0); HEMOGLOBIN 9.6 g/dL (12.0-18.0); LYMPH # 0.6 K/uL (1.0-4.3); LYMPH % 5.3 % (20.0-40.0); MEAN CELL VOLUME 88.4 fL (80.0-94.0); MEAN CORPUSCULAR HGB CONC 33.9 g/dL (33.0-37.0); MEAN PLATELET VOLUME 8.9 fL (7.2-11.7); MONO # 1.1 K/uL (0.0-0.8); MONO % 10.2 % (0.0-10.0); NEUT # 9.5 K/uL (1.8-7.0); NEUT % 84.2 % (50.0-75.0); PLATELET COUNT 136 K/uL (130-400); RBC 3.21 Mil/uL (4.40-5.90); RED CELL DISTRIBUTION WIDTH 16.1 % (11.5-14.5); WHITE BLOOD COUNT 11.3 K/uL (4.8-10.8)
[2017-11-30 07:38] LABS: ALB/GLOB RATIO 1.1 (1.0-2.1); ALBUMIN 3.1 g/dL (3.5-5.0); CALCIUM 7.9 mg/dl (8.6-10.4)
[2017-11-30] MEDS: (Novolog) Insulin Aspart, Recombinant 100 u/ml 10 ml vial SC SCH ×3 (08:30→18:19)
[2017-11-30] MEDS: (Novolin R) Insulin Human Regular 100 units/ml vial SC SCH ×4 (08:30→22:10)
[2017-11-30 09:07] LABS: ANISOCYTOSIS SLIGHT; LYMPHOCYTE 5 % (20-40); MONOCYTE 3 % (0-10); NEUTROPHIL 92 % (50-75); PLATELET ESTIMATE NORMAL (NORMAL); TOTAL CELLS COUNTED 100
--- NOTE | 2017-11-30 09:33 | CP.PCM.PN ---
Addendum entered and electronically signed by Natasha Cummisn DO 11/30/17 15:38: bilateral anterior tibial edema 1+ pitting pulmicort 5 mg INH RQ12H daily advair and spiriva would worsen edema, will place patient on pulmacort 180 mg INH Q12H Addendum entered and electronically signed by Natasha Cummins DO 11/30/17 15:30: diffuse expiratory wheezing, rales advair 250/5 1 puff BID Original Note: <Natasha Cummins - Last Filed: 11/30/17 13:42> Subjective - Date & Time of Evaluation Date of Evaluation: 11/30/17 Time of Evaluation: 13:47 - Subjective Subjective: Progress Note Patient seen and examined at bedside. No acute events overnight. Patient denies fever, chills, difficulty breathing. Patient slept well on CPAP overnight. Objective - Vital Signs/Intake and Output Vital Signs (last 24 hours): Temp Pulse Resp BP Pulse Ox 97.9 F 82 20 171/84 H 99 11/30/17 08:56 11/30/17 08:56 11/30/17 08:56 11/30/17 08:56 11/30/17 08:56 Intake and Output: 11/30/17 11/30/17 06:59 18:59 Intake Total 360 Output Total 1000 Balance -640 - Medications Medications: Current Medications Albuterol/Ipratropium (Duoneb 3 Mg/0.5 Mg (3 Ml) Ud) 3 ml INH RQ4 [facility] Last Admin: 11/30/17 07:37 Dose: 3 ml Aspirin (Aspirin Chewable) 81 mg PO DAILY [facility] Last Admin: 11/29/17 14:33 Dose: 81 mg Azithromycin (Zithromax) 500 mg PO DAILY [facility] PRN Reason: Protocol Last Admin: 11/29/17 14:33 Dose: 500 mg Carvedilol (Coreg) 25 mg PO BID [facility] Last Admin: 11/29/17 17:44 Dose: 25 mg Dextrose (Dextrose 50% Inj) 0 ml IV STAT PRN; Protocol PRN Reason: Hypoglycemia Protocol Dextrose (Glutose 15) 0 gm PO ONCE PRN; Protocol PRN Reason: Hypoglycemia Protocol Furosemide (Lasix) 40 mg IVP BID [facility] Last Admin: 11/29/17 17:47 Dose: 40 mg Glucagon (Glucagen Diagnostic Kit) 0 mg IM STAT PRN; Protocol PRN Reason: Hypoglycemia Protocol Guaifenesin (Mucinex La) 600 mg PO Q12H [facility] Last Admin: 11/29/17 23:03 Dose: 600 mg Heparin Sodium (Porcine) (Heparin) 5,000 units SC Q12 [facility] Last Admin: 11/29/17 21:56 Dose: 5,000 units Hydralazine HCl (Apresoline) 100 mg PO Q8 [facility] Last Admin: 11/30/17 05:50 Dose: 100 mg Dextrose (Dextrose 5% In Water 1000 Ml) 1,000 mls @ 0 mls/hr IV .Q0M PRN; Protocol; Per Protocol PRN Reason: Hypoglycemia Protocol Cefepime HCl (Maxipime Iv 1 Gm Premix) 1 gm in 50 mls @ 100 mls/hr IVPB Q24H [facility] PRN Reason: Protocol Last Admin: 11/29/17 17:48 Dose: 100 mls/hr Insulin Aspart (Novolog) 6 unit SC AC [facility] Insulin Glargine (Lantus) 20 unit SC HS [facility] Insulin Human Regular (Novolin R) 0 unit SC ACHS [facility] PRN Reason: Protocol Last Admin: 11/30/17 08:30 Dose: 6 unit Isosorbide Mononitrate (Imdur Er) 30 mg PO DAILY [facility] Montelukast Sodium (Singulair) 10 mg PO [facility] Last Admin: 11/29/17 21:57 Dose: 10 mg Pantoprazole Sodium (Protonix Ec Tab) 40 mg PO DAILY [facility] Last Admin: 11/29/17 10:00 Dose: Not Given Rosuvastatin Calcium (Crestor) 10 mg PO [facility] Last Admin: 11/29/17 21:57 Dose: 10 mg Saccharomyces Boulardii (Florastor) 250 mg PO BID [facility] Last Admin: 11/29/17 17:45 Dose: 250 mg Sevelamer Carbonate (Renvela) 800 mg PO TIDCC [facility] Last Admin: 11/30/17 08:31 Dose: 800 mg Trazodone HCl (Desyrel) 50 mg PO HS [facility] Stop: 11/30/17 22:01 Last Admin: 11/29/17 21:57 Dose: 50 mg - Labs Labs: 11/30/17 07:01 11/30/17 07:01 Assessment and Plan - Assessment and Plan (Free Text) Assessment: Fluid Overload * Contributing factors: ESRD (MWF? - old schedule was /Wed) * Cardiomyopathy, Obesity, history of noncompliance Cardiomyopathy with PPM EF <30% * Cardiology Consult: Dr. Presley on board help appreciated * Per prior workup from his scalehouse attendant (Dr. Harmony Brown office) * Echocardiogram (08/10/17): EF: 27 percent w. mild aortic stenos and small ASD w / right to left shunt * LHC (08/05/17): no ischemic CAD * Spironolactone recommended due to EF <35% (RALES trial), however, due to AHA/ ACCF HF guidelines, will hold due to ESRD and Cr >2.5 * ACEI recommended due to Karina-HeFT trial, however, due to AHA/ACCF HF guidelines , will hold due to ESRD * elevated troponin attributed to ESRD * Fluid restriction * intake and outputs * Aspirin 81mg PO daily * Coreg 25 mg PO BID * Crestor 10mg PO QHS * Norvasc 5mg PO daily * Hydralazine 100mg PO Q8H Pneumonia * Pulmonary (Dr. Klein) on board-->help appreciated * Infectious Disease (Dr. Rosales) on the case-->help appreciated * had septic presentation and received antibiotics before AMA; consider empiric 7 day course * c/w Cefepime 1 gram IV Q24H (active since 11/25/17) * c/w Azithromycin 500mg PO daily (active since 11/27/17) * CT Chest (11/25/17): widespread diffuse pulmonary infiltrates are appreciate with subtle ground-glass component likely reflecting pneumonia no inflammatory process is not excluded. No significant lymphadenopathy grossly evident in this unenhanced exam. Pulmonary artery hypertension is in question. Mild ascending thoracic aneurysm 4.3 cm greatest dimension terminating at the anterior arch * V/Q scan (11/25/17): low probability ventilation perfusion scan for pulmonary embolism * Patient refused repeat ABG for today (11/26/17) * Legionella: cancelled Mycoplasma IgM: negative * Mucinex 600mg PO BID * Duoneb 3cc INH Q4H [facility] * Singulair 10mg PO qHS * Blood Culture (11/24/17): negative to date * Blood culture (11/25/17): negative to date ESRD MWF * Nephrology consult: Dr. Boswell * ESRD (Wednesday//Wednesday)- changed to MWF * Renvela 800mg PO TIDCC * Discussed with nephrology, recommends for patient to have 3 dialysis sessions a week; he easily fluid retains-->patient is not amenable to increase the number of dialysis sessions. MWF Diabetes Uncontrolled secondary to steroids * hemoglobin a1c: 6.6 * Regular insulin sliding scale ACHS * Lantus 20mg units SC Q HS * Novolog 6 subq tidac * Hypoglycemic protocol Uncontrolled Hypertension secondary to fluid overload, uncontrolled * Hydralazine 100mg PO Q8H * Coreg 25mg PO BID * Lasix 40mg IV Q12H * Norvasc 5mg PO daily Asthma * Duonebs every 4hours * Mucinex 600mg PO BID * Duoneb 3cc INH Q4H [facility] * Singulair 10mg PO qHS Left known Renal Mass * Patient scheduled for December [address] Sydney Bartlett History of Sleep apnea * CPAP at night * Recommend sleep study outpatient to qualify for CPAP * will f/u with Dr. Klein when stable Thoracic Aneursym * CT Chest: Mild ascending thoracic aneurysm 4.3 cm greatest dimension terminating at the anterior arch. Will need to follow up in 6-12 months Prophylactic care * Heparin 5000 units [id number] * Protonix 40mg PO daily * Florastor 250mg PO BID Disposition: Continue for IV abx (will need 7 days of empiric treatment). Pending pulmonary and nephrology clearance for discharge given patient's fluid overload state. f/u with baseball club manager about JOSE placement Discussed with Dr. Mert Cummins DO PGY1 <Mert Black - Last Filed: 11/30/17 18:03> Objective - Vital Signs/Intake and Output Vital Signs (last 24 hours): Temp Pulse Resp BP Pulse Ox 98.6 F 82 20 133/79 98 11/30/17 17:56 11/30/17 17:56 11/30/17 17:56 11/30/17 17:56 11/30/17 17:56 Intake and Output: 11/30/17 11/30/17 06:59 18:59 Intake Total 360 Output Total 1000 Balance -640 - Medications Medications: Current Medications Albuterol/Ipratropium (Duoneb 3 Mg/0.5 Mg (3 Ml) Ud) 3 ml INH RQ4 [facility] Last Admin: 11/30/17 15:45 Dose: Not Given Aspirin (Aspirin Chewable) 81 mg PO DAILY [facility] Last Admin: 11/30/17 09:54 Dose: 81 mg Azithromycin (Zithromax) 500 mg PO DAILY [facility] PRN Reason: Protocol Last Admin: 11/30/17 09:57 Dose: 500 mg Budesonide (Pulmicort Respules) 0.5 mg INH RQ12 [facility] Stop: 12/01/17 15:46 Carvedilol (Coreg) 25 mg PO BID [facility] Last Admin: 11/30/17 09:54 Dose: 25 mg Dextrose (Dextrose 50% Inj) 0 ml IV STAT PRN; Protocol PRN Reason: Hypoglycemia Protocol Dextrose (Glutose 15) 0 gm PO ONCE PRN; Protocol PRN Reason: Hypoglycemia Protocol Furosemide (Lasix) 40 mg IVP BID [facility] Last Admin: 11/30/17 09:54 Dose: 40 mg Glucagon (Glucagen Diagnostic Kit) 0 mg IM STAT PRN; Protocol PRN Reason: Hypoglycemia Protocol Guaifenesin (Mucinex La) 600 mg PO Q12H [facility] Last Admin: 11/30/17 12:31 Dose: 600 mg Heparin Sodium (Porcine) (Heparin) 5,000 units SC Q12 [facility] Last Admin: 11/30/17 09:54 Dose: 5,000 units Hydralazine HCl (Apresoline) 100 mg PO Q8 [facility] Last Admin: 11/30/17 15:01 Dose: Not Given Dextrose (Dextrose 5% In Water 1000 Ml) 1,000 mls @ 0 mls/hr IV .Q0M PRN; Protocol; Per Protocol PRN Reason: Hypoglycemia Protocol Cefepime HCl (Maxipime Iv 1 Gm Premix) 1 gm in 50 mls @ 100 mls/hr IVPB Q24H [facility] PRN Reason: Protocol Last Admin: 11/29/17 17:48 Dose: 100 mls/hr Insulin Aspart (Novolog) 6 unit SC AC [facility] Last Admin: 11/30/17 12:32 Dose: 6 unit Insulin Glargine (Lantus) 20 unit SC HS [facility] Insulin Human Regular (Novolin R) 0 unit SC ACHS [facility] PRN Reason: Protocol Last Admin: 11/30/17 17:51 Dose: Not Given Isosorbide Mononitrate (Imdur Er) 30 mg PO DAILY [facility] Last Admin: 11/30/17 09:54 Dose: 30 mg Montelukast Sodium (Singulair) 10 mg PO [facility] Last Admin: 11/29/17 21:57 Dose: 10 mg Rosuvastatin Calcium (Crestor) 10 mg PO HS [facility] Last Admin: 11/29/17 21:57 Dose: 10 mg Saccharomyces Boulardii (Florastor) 250 mg PO BID [facility] Last Admin: 11/30/17 09:55 Dose: 250 mg Sevelamer Carbonate (Renvela) 800 mg PO TIDCC [facility] Last Admin: 11/30/17 12:31 Dose: 800 mg Trazodone HCl (Desyrel) 50 mg PO [facility] Stop: 11/30/17 22:01 Last Admin: 11/29/17 21:57 Dose: 50 mg - Labs Labs: 11/30/17 07:01 11/30/17 07:01 Attending/Attestation - Attestation I have personally seen and examined this patient.: Yes I have fully participated in the care of the patient.: Yes I have reviewed all pertinent clinical information, including history, physical exam and plan: Yes Notes (Text): 11/30/17 17:59 Patient was seen and examined while receiving HD at 3 PM Exam, assessment and plan were gone over with the resident. Also on ROS: SOB still persists Cough that produces small amount of white mucous Also on Exam: Diffuse expiratory wheezing 1+ pitting edema bilateral legs upto tibial tuberosities Liver and spleen could not be palpated secondary to central obesity Please note that the patient is NOT on Norvasc which was discontinued on due to EF < 40% For his Asthma: Singulair 10 mg PO 1x/day, Pulmicort 0.5 mg INH 2x/day, Duoneb PRN. Spoke withe HD Nurse: his weight after HD 11/29/17 was 130.8 kg and today before HD it was 134.9 kg. Weight after HD today was 130.5 kg Protonix was discontinued as he is no longer on Steroids Mert Black D.O.
[2017-11-30] MEDS: Pantoprazole 40 mg EC Tab PO SCH (09:54)
[2017-11-30] MEDS: Saccharomyces Boulardi 250 mg Cap PO SCH ×2 (09:55→18:18)
--- NOTE | 2017-11-30 11:05 | CP.PCM.PN ---
Subjective - Date & Time of Evaluation Date of Evaluation: 11/30/17 Time of Evaluation: 10:00 - Subjective Subjective: NO NEW CULTURES RX IN PROGRESS Objective - Vital Signs/Intake and Output Vital Signs (last 24 hours): Temp Pulse Resp BP Pulse Ox 97.9 F 82 20 148/78 99 11/30/17 08:56 11/30/17 08:56 11/30/17 08:56 11/30/17 09:54 11/30/17 08:56 Intake and Output: 11/30/17 11/30/17 06:59 18:59 Intake Total 360 Output Total 1000 Balance -640 - Medications Medications: Current Medications Albuterol/Ipratropium (Duoneb 3 Mg/0.5 Mg (3 Ml) Ud) 3 ml INH RQ4 [facility] Last Admin: 11/30/17 07:37 Dose: 3 ml Aspirin (Aspirin Chewable) 81 mg PO DAILY [facility] Last Admin: 11/30/17 09:54 Dose: 81 mg Azithromycin (Zithromax) 500 mg PO DAILY [facility] PRN Reason: Protocol Last Admin: 11/30/17 09:57 Dose: 500 mg Carvedilol (Coreg) 25 mg PO BID [facility] Last Admin: 11/30/17 09:54 Dose: 25 mg Dextrose (Dextrose 50% Inj) 0 ml IV STAT PRN; Protocol PRN Reason: Hypoglycemia Protocol Dextrose (Glutose 15) 0 gm PO ONCE PRN; Protocol PRN Reason: Hypoglycemia Protocol Furosemide (Lasix) 40 mg IVP BID [facility] Last Admin: 11/30/17 09:54 Dose: 40 mg Glucagon (Glucagen Diagnostic Kit) 0 mg IM STAT PRN; Protocol PRN Reason: Hypoglycemia Protocol Guaifenesin (Mucinex La) 600 mg PO Q12H [facility] Last Admin: 11/29/17 23:03 Dose: 600 mg Heparin Sodium (Porcine) (Heparin) 5,000 units SC Q12 [facility] Last Admin: 11/30/17 09:54 Dose: 5,000 units Hydralazine HCl (Apresoline) 100 mg PO Q8 [facility] Last Admin: 11/30/17 05:50 Dose: 100 mg Dextrose (Dextrose 5% In Water 1000 Ml) 1,000 mls @ 0 mls/hr IV .Q0M PRN; Protocol; Per Protocol PRN Reason: Hypoglycemia Protocol Cefepime HCl (Maxipime Iv 1 Gm Premix) 1 gm in 50 mls @ 100 mls/hr IVPB Q24H [facility] PRN Reason: Protocol Last Admin: 11/29/17 17:48 Dose: 100 mls/hr Insulin Aspart (Novolog) 6 unit SC AC [facility] Insulin Glargine (Lantus) 20 unit SC HS [facility] Insulin Human Regular (Novolin R) 0 unit SC ACHS [facility] PRN Reason: Protocol Last Admin: 11/30/17 08:30 Dose: 6 unit Isosorbide Mononitrate (Imdur Er) 30 mg PO DAILY [facility] Last Admin: 11/30/17 09:54 Dose: 30 mg Montelukast Sodium (Singulair) 10 mg PO [facility] Last Admin: 11/29/17 21:57 Dose: 10 mg Pantoprazole Sodium (Protonix Ec Tab) 40 mg PO DAILY [facility] Last Admin: 11/30/17 09:54 Dose: 40 mg Rosuvastatin Calcium (Crestor) 10 mg PO [facility] Last Admin: 11/29/17 21:57 Dose: 10 mg Saccharomyces Boulardii (Florastor) 250 mg PO BID [facility] Last Admin: 11/30/17 09:55 Dose: 250 mg Sevelamer Carbonate (Renvela) 800 mg PO TIDCC [facility] Last Admin: 11/30/17 08:31 Dose: 800 mg Trazodone HCl (Desyrel) 50 mg PO [facility] Stop: 11/30/17 22:01 Last Admin: 11/29/17 21:57 Dose: 50 mg - Labs Labs: 11/30/17 07:01 11/30/17 07:01 - Constitutional Appears: Non-toxic, Chronically Ill - Head Exam Head Exam: NORMOCEPHALIC - Eye Exam Eye Exam: absent: Scleral icterus - ENT Exam ENT Exam: Mucous Membranes Dry - Neck Exam Neck Exam: absent: Lymphadenopathy - Respiratory Exam Respiratory Exam: Decreased Breath Sounds - Cardiovascular Exam Cardiovascular Exam: REGULAR RHYTHM - GI/Abdominal Exam GI & Abdominal Exam: Distended Assessment and Plan (1) Pneumonia Status: Acute (2) Renal failure Status: Acute (3) Anemia Status: Acute (4) Chronic congestive heart failure Status: Acute (5) Dyspnea Status: Acute (6) Elevated troponin Status: Acute (7) Hypertension Status: Acute (8) Left against medical advice Status: Acute
--- NOTE | 2017-11-30 12:09 | CP.PCM.PN ---
Subjective - Date & Time of Evaluation Date of Evaluation: 11/30/17 Time of Evaluation: 12:08 - Subjective Subjective: pt is seen and examined, follow up consult is dictated #[id number] s/p hd yesterday and removed 4 lit for extra hd today Objective - Vital Signs/Intake and Output Vital Signs (last 24 hours): Temp Pulse Resp BP Pulse Ox 97.9 F 82 20 148/78 99 11/30/17 08:56 11/30/17 08:56 11/30/17 08:56 11/30/17 09:54 11/30/17 08:56 Intake and Output: 11/30/17 11/30/17 06:59 18:59 Intake Total 360 Output Total 1000 Balance -640 - Medications Medications: Current Medications Albuterol/Ipratropium (Duoneb 3 Mg/0.5 Mg (3 Ml) Ud) 3 ml INH RQ4 [facility] Last Admin: 11/30/17 11:17 Dose: 3 ml Aspirin (Aspirin Chewable) 81 mg PO DAILY [facility] Last Admin: 11/30/17 09:54 Dose: 81 mg Azithromycin (Zithromax) 500 mg PO DAILY [facility] PRN Reason: Protocol Last Admin: 11/30/17 09:57 Dose: 500 mg Carvedilol (Coreg) 25 mg PO BID [facility] Last Admin: 11/30/17 09:54 Dose: 25 mg Dextrose (Dextrose 50% Inj) 0 ml IV STAT PRN; Protocol PRN Reason: Hypoglycemia Protocol Dextrose (Glutose 15) 0 gm PO ONCE PRN; Protocol PRN Reason: Hypoglycemia Protocol Furosemide (Lasix) 40 mg IVP BID [facility] Last Admin: 11/30/17 09:54 Dose: 40 mg Glucagon (Glucagen Diagnostic Kit) 0 mg IM STAT PRN; Protocol PRN Reason: Hypoglycemia Protocol Guaifenesin (Mucinex La) 600 mg PO Q12H [facility] Last Admin: 11/29/17 23:03 Dose: 600 mg Heparin Sodium (Porcine) (Heparin) 5,000 units SC Q12 [facility] Last Admin: 11/30/17 09:54 Dose: 5,000 units Hydralazine HCl (Apresoline) 100 mg PO Q8 [facility] Last Admin: 11/30/17 05:50 Dose: 100 mg Dextrose (Dextrose 5% In Water 1000 Ml) 1,000 mls @ 0 mls/hr IV .Q0M PRN; Protocol; Per Protocol PRN Reason: Hypoglycemia Protocol Cefepime HCl (Maxipime Iv 1 Gm Premix) 1 gm in 50 mls @ 100 mls/hr IVPB Q24H [facility] PRN Reason: Protocol Last Admin: 11/29/17 17:48 Dose: 100 mls/hr Insulin Aspart (Novolog) 6 unit SC AC [facility] Insulin Glargine (Lantus) 20 unit SC HS [facility] Insulin Human Regular (Novolin R) 0 unit SC ACHS [facility] PRN Reason: Protocol Last Admin: 11/30/17 08:30 Dose: 6 unit Isosorbide Mononitrate (Imdur Er) 30 mg PO DAILY [facility] Last Admin: 11/30/17 09:54 Dose: 30 mg Montelukast Sodium (Singulair) 10 mg PO [facility] Last Admin: 11/29/17 21:57 Dose: 10 mg Pantoprazole Sodium (Protonix Ec Tab) 40 mg PO DAILY [facility] Last Admin: 11/30/17 09:54 Dose: 40 mg Rosuvastatin Calcium (Crestor) 10 mg PO [facility] Last Admin: 11/29/17 21:57 Dose: 10 mg Saccharomyces Boulardii (Florastor) 250 mg PO BID [facility] Last Admin: 11/30/17 09:55 Dose: 250 mg Sevelamer Carbonate (Renvela) 800 mg PO TIDCC [facility] Last Admin: 11/30/17 08:31 Dose: 800 mg Trazodone HCl (Desyrel) 50 mg PO [facility] Stop: 11/30/17 22:01 Last Admin: 11/29/17 21:57 Dose: 50 mg - Labs Labs: 11/30/17 07:01 11/30/17 07:01
[2017-11-30] MEDS: guaiFENesin 600 mg ER Tab PO SCH ×2 (12:31→22:45)
[2017-11-30] MEDS ORDERED: Budesonide 0.5 mg/2 ml Inhal Susp UD INH SCH ×2 (15:45→20:00)
--- NOTE | 2017-11-30 15:53 | CP.PCM.PN ---
Subjective - Date & Time of Evaluation Date of Evaluation: 11/30/17 Time of Evaluation: 15:52 - Subjective Subjective: Sal Allen PGY1 Cardiology Progress Note for Dr. Presley Patient was seen and examined at bedside. he states that he got little sleep because of his cough, but states it's improving with use of CPAP (Which he uses throughout the day) and dialysis. he denies shortness of breath at rest, chest pain, palpitations or headaches, n/v/d. Objective - Vital Signs/Intake and Output Vital Signs (last 24 hours): Temp Pulse Resp BP Pulse Ox 97.6 F 69 20 123/62 97 11/30/17 14:00 11/30/17 14:00 11/30/17 14:00 11/30/17 15:00 11/30/17 14:00 Intake and Output: 11/30/17 11/30/17 06:59 18:59 Intake Total 360 Output Total 1000 Balance -640 - Medications Medications: Current Medications Albuterol/Ipratropium (Duoneb 3 Mg/0.5 Mg (3 Ml) Ud) 3 ml INH RQ4 [facility] Last Admin: 11/30/17 15:45 Dose: Not Given Aspirin (Aspirin Chewable) 81 mg PO DAILY [facility] Last Admin: 11/30/17 09:54 Dose: 81 mg Azithromycin (Zithromax) 500 mg PO DAILY [facility] PRN Reason: Protocol Last Admin: 11/30/17 09:57 Dose: 500 mg Budesonide (Pulmicort Respules) 0.5 mg INH RQ12 [facility] Budesonide (Pulmicort Respules) 0.5 mg INH RQ12 [facility] Stop: 12/01/17 15:46 Carvedilol (Coreg) 25 mg PO BID [facility] Last Admin: 11/30/17 09:54 Dose: 25 mg Dextrose (Dextrose 50% Inj) 0 ml IV STAT PRN; Protocol PRN Reason: Hypoglycemia Protocol Dextrose (Glutose 15) 0 gm PO ONCE PRN; Protocol PRN Reason: Hypoglycemia Protocol Furosemide (Lasix) 40 mg IVP BID [facility] Last Admin: 11/30/17 09:54 Dose: 40 mg Glucagon (Glucagen Diagnostic Kit) 0 mg IM STAT PRN; Protocol PRN Reason: Hypoglycemia Protocol Guaifenesin (Mucinex La) 600 mg PO Q12H [facility] Last Admin: 11/30/17 12:31 Dose: 600 mg Heparin Sodium (Porcine) (Heparin) 5,000 units SC Q12 [facility] Last Admin: 11/30/17 09:54 Dose: 5,000 units Hydralazine HCl (Apresoline) 100 mg PO Q8 [facility] Last Admin: 11/30/17 15:01 Dose: Not Given Dextrose (Dextrose 5% In Water 1000 Ml) 1,000 mls @ 0 mls/hr IV .Q0M PRN; Protocol; Per Protocol PRN Reason: Hypoglycemia Protocol Cefepime HCl (Maxipime Iv 1 Gm Premix) 1 gm in 50 mls @ 100 mls/hr IVPB Q24H [facility] PRN Reason: Protocol Last Admin: 11/29/17 17:48 Dose: 100 mls/hr Insulin Aspart (Novolog) 6 unit SC AC [facility] Last Admin: 11/30/17 12:32 Dose: 6 unit Insulin Glargine (Lantus) 20 unit SC [facility] Insulin Human Regular (Novolin R) 0 unit SC ACHS [facility] PRN Reason: Protocol Last Admin: 11/30/17 12:33 Dose: 8 unit Isosorbide Mononitrate (Imdur Er) 30 mg PO DAILY [facility] Last Admin: 11/30/17 09:54 Dose: 30 mg Montelukast Sodium (Singulair) 10 mg PO [facility] Last Admin: 11/29/17 21:57 Dose: 10 mg Rosuvastatin Calcium (Crestor) 10 mg PO [facility] Last Admin: 11/29/17 21:57 Dose: 10 mg Saccharomyces Boulardii (Florastor) 250 mg PO BID [facility] Last Admin: 11/30/17 09:55 Dose: 250 mg Sevelamer Carbonate (Renvela) 800 mg PO TIDCC [facility] Last Admin: 11/30/17 12:31 Dose: 800 mg Trazodone HCl (Desyrel) 50 mg PO [facility] Stop: 11/30/17 22:01 Last Admin: 11/29/17 21:57 Dose: 50 mg - Labs Labs: 11/30/17 07:01 11/30/17 07:01 - Additional Findings Additional findings: - Constitutional Appears: Well, Non-toxic, No Acute Distress - Head Exam Head Exam: NORMAL INSPECTION - Eye Exam Eye Exam: Normal appearance Pupil Exam: NORMAL ACCOMODATION - ENT Exam ENT Exam: Mucous Membranes Moist - Neck Exam Neck exam: Positive for: Normal Inspection - Respiratory Exam Respiratory Exam: Wheezes, NORMAL BREATHING PATTERN. absent: Rhonchi, Rales - Cardiovascular Exam Cardiovascular Exam: RRR, +S1, +S2 - GI/Abdominal Exam GI & Abdominal Exam: Normal Bowel Sounds, Soft. absent: Distended, Tenderness - Extremities Exam Extremities exam: Positive for: normal inspection. absent: Pedal Edema - Back Exam Back exam: NORMAL INSPECTION - Neurological Exam Neurological exam: Alert - Psychiatric Exam Psychiatric exam: Normal Affect, Normal Mood - Skin Skin Exam: Normal Color Assessment & Plan - Assessment and Plan (Free Text) Assessment: 57 yo male with past medical hx of left renal mass w/ planned left radical nephrectomy (12/2017), CHF w/ pacemaker placement, ESRD on HD asthma, HTN , DM2, sleep apnea and morbid obesity who presented with complaints of shortness of breath x2 weeks likely 2/2 pneumonia +/- CHF exacerbation. Plan: 1. Dyspnea - given fluctuations in SBP, patient is likely fluid overloaded and symptoms/ SBP improves during and post dialysis - continue strict diuresis; Lasix (pt states he takes Lasix at home irregularly on days when he doesn't have HD) - patient started on Imdur which seems to have improved his BP - daily weight checks, limit fluid intake and strict I/O - CT Chest showed diffuse pulm infiltrates and mild ascending thoracic aortic aneurysm 4.3cm - Lung V/Q scan showed low probability for pulm embolism - BNP was mildly elevated but at baseline is elevated from prior visits - Troponin also chronically elevated due to ESRD - ABG reviewed, doesn't show severe hypoxia - patient's symptoms are improving - cont singulair - should decrease solumedrol dose given hyperglycemia and no wheezing/dyspnea present at rest - CPAP PRN - cont cefepime empirically - blood cultures negative - cont duoneb [facility] 2. CHF w/ PPM - reports from PMD indicated EF < 30% - Echo done at shows EF 36% - cont ASA, coreg according to the COPERNICUS and COMET trials - Spironolactone recommended due to EF <35% (RALES trial), however, due to AHA/ ACCF HF guidelines, will hold due to ESRD and Cr >2.5 - ACEi recommended due to Karina-HeFT trial, however, due to AHA/ACCF HF guidelines and medication non-compliance and risk of hyperkalemia, will hold due to ESRD - cont Hydralazine and nitrate - there are no current indications for oral anticoagulation therapy according to WASH, WATCH, HELAS and WARCEF trials 3. ESRD on HD and DM - cont HD - strict glycemic control - planned for radical left nephrectomy due to tumor 4. sleep apnea - plan for outpatient sleep study - cont on CPAP machine PRN sleep Patient was reviewed and discussed with Dr. Presley
--- NOTE | 2017-11-30 17:27 | CP.PCM.PN ---
Subjective - Date & Time of Evaluation Date of Evaluation: 11/30/17 Time of Evaluation: 18:00 - Subjective Subjective: Patient seen and examined at bedside today. Patient was awake and resting comfortably in bed on CPAP. Patient states he has been having worsening difficulty breathing. He feels the need to wear the CPAP all day because of shortness of breath. Patient states he tried to walk yesterday and could not because of difficulty breating. Patient also complains of a non-productive cough and wheezing Patient is noted to still have lower leg edema. Assessment/Plan: 1. Pneumonia - WBC uptrendin.3 - Patient remains afebrile since 11/25 - Repeat CXR - Continue Azithromycin and Cefepime - Continue Duoneb - Continue Singulair 2. Fluid Overload - Lower extremity edema still present. - Continue Lasix 3. Obstructive Sleep Apnea - Continue CPAP - Recommend sleep study outpatient to qualify for CPAP 4. End-Stage Renal Disease on hemodialysis - Dialysis yesterday and today(MW schedule) - Management per Primary Team 5. HTN, uncontrolled - Management per Primary Team 6. Diabetes Mellitus - Management per primary team Objective - Vital Signs/Intake and Output Vital Signs (last 24 hours): Temp Pulse Resp BP Pulse Ox 97.6 F 69 17 127/61 97 11/30/17 14:00 11/30/17 14:00 11/30/17 16:30 11/30/17 16:30 11/30/17 14:00 Intake and Output: 11/30/17 11/30/17 06:59 18:59 Intake Total 360 Output Total 1000 Balance -640 - Medications Medications: Current Medications Albuterol/Ipratropium (Duoneb 3 Mg/0.5 Mg (3 Ml) Ud) 3 ml INH RQ4 [facility] Last Admin: 11/30/17 15:45 Dose: Not Given Aspirin (Aspirin Chewable) 81 mg PO DAILY [facility] Last Admin: 11/30/17 09:54 Dose: 81 mg Azithromycin (Zithromax) 500 mg PO DAILY [facility] PRN Reason: Protocol Last Admin: 11/30/17 09:57 Dose: 500 mg Budesonide (Pulmicort Respules) 0.5 mg INH RQ12 [facility] Stop: 12/01/17 15:46 Carvedilol (Coreg) 25 mg PO BID [facility] Last Admin: 11/30/17 09:54 Dose: 25 mg Dextrose (Dextrose 50% Inj) 0 ml IV STAT PRN; Protocol PRN Reason: Hypoglycemia Protocol Dextrose (Glutose 15) 0 gm PO ONCE PRN; Protocol PRN Reason: Hypoglycemia Protocol Furosemide (Lasix) 40 mg IVP BID [facility] Last Admin: 11/30/17 09:54 Dose: 40 mg Glucagon (Glucagen Diagnostic Kit) 0 mg IM STAT PRN; Protocol PRN Reason: Hypoglycemia Protocol Guaifenesin (Mucinex La) 600 mg PO Q12H [facility] Last Admin: 11/30/17 12:31 Dose: 600 mg Heparin Sodium (Porcine) (Heparin) 5,000 units SC Q12 [facility] Last Admin: 11/30/17 09:54 Dose: 5,000 units Hydralazine HCl (Apresoline) 100 mg PO Q8 [facility] Last Admin: 11/30/17 15:01 Dose: Not Given Dextrose (Dextrose 5% In Water 1000 Ml) 1,000 mls @ 0 mls/hr IV .Q0M PRN; Protocol; Per Protocol PRN Reason: Hypoglycemia Protocol Cefepime HCl (Maxipime Iv 1 Gm Premix) 1 gm in 50 mls @ 100 mls/hr IVPB Q24H [facility] PRN Reason: Protocol Last Admin: 11/29/17 17:48 Dose: 100 mls/hr Insulin Aspart (Novolog) 6 unit SC AC [facility] Last Admin: 11/30/17 12:32 Dose: 6 unit Insulin Glargine (Lantus) 20 unit SC HS [facility] Insulin Human Regular (Novolin R) 0 unit SC ACHS [facility] PRN Reason: Protocol Last Admin: 11/30/17 12:33 Dose: 8 unit Isosorbide Mononitrate (Imdur Er) 30 mg PO DAILY [facility] Last Admin: 11/30/17 09:54 Dose: 30 mg Montelukast Sodium (Singulair) 10 mg PO HS [facility] Last Admin: 11/29/17 21:57 Dose: 10 mg Rosuvastatin Calcium (Crestor) 10 mg PO HS [facility] Last Admin: 11/29/17 21:57 Dose: 10 mg Saccharomyces Boulardii (Florastor) 250 mg PO BID [facility] Last Admin: 11/30/17 09:55 Dose: 250 mg Sevelamer Carbonate (Renvela) 800 mg PO TIDCC [facility] Last Admin: 11/30/17 12:31 Dose: 800 mg Trazodone HCl (Desyrel) 50 mg PO HS [facility] Stop: 11/30/17 22:01 Last Admin: 11/29/17 21:57 Dose: 50 mg - Labs Labs: 11/30/17 07:01 11/30/17 07:01
[2017-11-30] MEDS: Cefepime IV 1 gm in Dextrose 1 GM/50 ML BAG IVPB SCH (18:18)
[2017-11-30] MEDS ORDERED: (Lantus) Insulin Glargine, Recombinant SC SCH (22:00)
[2017-11-30] MEDS ORDERED: MethylPREDNISolone 40 mg Vial IVP SCH (22:00)
--- NOTE | 2017-12-01 03:36 | PN ---
DATE: 11/30/2017 FOLLOWUP RENAL CONSULTATION LOCATION: The patient is located in room 662, bed A. REQUESTED BY: Rosangela Lin DO DATE OF SERVICE 11/30/2017 REASON FOR RENAL CONSULTATION: End-stage renal disease, shortness of breath, for continuation of hemodialysis. HISTORY OF PRESENT ILLNESS: Mr. Mehta is a 57-year-old middle-aged obese male with a past medical history significant for longstanding hypertension, diabetes, asthma, CHF, coronary artery disease, cardiomyopathy, status post AICD placement, end-stage renal disease on hemodialysis 2 times a week with a left renal mass who was admitted with chief complaints of persistent cough and shortness of breath, not improving with p.o. antibiotics. The patient was admitted for pneumonia and CHF. The patient is complaining this morning still shortness of breath and cough, dyspnea on exertion. Denies any chest pain at this time. No nausea or vomiting. The patient underwent hemodialysis yesterday, had ultrafiltration of about 4 liters. The patient also complains of slight swelling of the legs. PHYSICAL EXAMINATION: VITAL SIGNS: As follows, blood pressure 164/84, pulse 60, respiration 20, temperature 97.7. HEENT: Pupils normal and reactive to light and accommodation. Conjunctivae pink. Sclerae are anicteric. Tongue is moist. Trachea is midline. LUNGS: Symmetric on both sides. Bilateral breath sounds present. Bilateral expiratory wheeze present. CVS: [place] at the fifth intercostal space, midclavicular line. S1, S2 audible. No murmur or gallop. ABDOMEN: Normal in appearance. Soft, tympanic. No guarding. No rigidity. No hepatosplenomegaly. 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 Nonfocal neuro examination. Cranial nerves II-XII grossly intact. Sensory and motor system is within normal limits. EXTREMITIES: No cyanosis, no clubbing. The patient has 1+ edema in both lower extremities. MEDICATIONS: His current medications include as follows. Hydralazine 100 mg p.o. every 8 hours, aspirin 81 mg daily, Coreg 25 mg p.o. b.i.d., Crestor 10 mg at bedtime, trazodone or Desyrel 50 mg p.o. at bed time, DuoNeb inhaler, Florastor 250 mg p.o. b.i.d., subcu heparin 5000 every 12 hours, 30 mg p.o. daily, Lantus 20 units subcu at bedtime, Lasix 40 mg IV b.i.d., cefepime 1 gm daily, Mucinex 600 mg p.o. every 12 hours, NovoLog for sliding scale 6 units subcu before meals., Novolin R for sliding scale NovoLog 6 units subcu before meals, Singulair 10 mg p.o. at bedtime, Solu-Medrol 40 mg IV every 12 hours and Zithromax 500 mg p.o. daily. LABORATORY DATA: His laboratory data include as follows as of 11/30/2017, WBC 11.3, hemoglobin 9.6, hematocrit is 28.4, platelets 136. Sodium 136, potassium 4.8, chloride 101, CO2 of 24, BUN 67, creatinine 4.7, glucose 294, calcium 7.9. Phosphorus 4.9, magnesium is 2. Total bili 0.5, AST 18, ALT 37, alkaline phosphatase 71, total protein 5.9, albumin is 3.1. Accu-Cheks 348. IMPRESSION: In summary, Mr. Mehta is a 57 years old obese male with hypertension, diabetes, asthma, chronic obstructive pulmonary disease, cardiomyopathy, status post automatic implantable cardioverter-defibrillator placement, end-stage renal disease, nephrotic range proteinuria and left renal mass, on hemodialysis three times a week, was admitted with cough, shortness of breath not relieved with p.o. antibiotics. on cefepime and Zithromax and Solu-Medrol. The patient still complains of shortness of breath this morning. ASSESSMENT AND PLAN: 1. End-stage renal disease: Continue hemodialysis three times a week. We will give the next dialysis today to keep him in negative balance, and the patient agrees for hemodialysis today. 2. Hypertension: Blood pressure is stable. Continue his current medications of hydralazine and Coreg. 3. 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 Continue DuoNeb inhaler. Continue Singulair. Continue Mucinex. Follow up with Pulmonary. Restrict fluids to 1.5 liters per day. We will follow with you. Thank you for allowing me to participate in your patient's care. We will evaluate in a.m. for another dialysis. The patient underwent hemodialysis this afternoon and had ultrafiltration of about 3.5 liters. Talya Vogel MD [facility] # [id number]
[2017-12-01] MEDS: Albuterol-Ipratrop 3 mg / 0.5 (3 ml) UD INH SCH (03:38)
[2017-12-01] MEDS ORDERED: Budesonide 0.5 mg/2 ml Inhal Susp UD INH SCH ×2 (04:00→08:00)
[2017-12-01 04:54] VITALS: BP 180/94; PULSE 84; RESP 22; TEMP 97.7; O2SAT 98
--- NOTE | 2017-12-01 06:56 | CP.PCM.DIS ---
Provider - Provider Date of Admission: 11/24/17 20:36 Attending physician: Mert Black MD Consults: Cardio- Fernandez TERRAZAS- Bobby Nephrology- Jaspreet Klein Time Spent in preparation of Discharge (in minutes): 45 Hospital Course - Lab Results Lab Results: Micro Results 11/25/17 21:45 Blood Blood Culture - Final NO GROWTH AFTER 5 DAYS 11/25/17 21:45 Blood Gram Stain - Final TEST NOT PERFORMED 11/25/17 21:15 Blood Blood Culture - Final NO GROWTH AFTER 5 DAYS 11/25/17 21:15 Blood Gram Stain - Final TEST NOT PERFORMED 11/25/17 11:40 Blood Blood Culture - Final NO GROWTH AFTER 5 DAYS 11/25/17 11:40 Blood Gram Stain - Final TEST NOT PERFORMED 11/24/17 19:30 Blood Blood Culture - Final NO GROWTH AFTER 5 DAYS 11/24/17 19:30 Blood Gram Stain - Final TEST NOT PERFORMED 11/24/17 19:00 Blood Blood Culture - Final NO GROWTH AFTER 5 DAYS 11/24/17 19:00 Blood Gram Stain - Final TEST NOT PERFORMED Most Recent Lab Values WBC 11.3 K/uL (4.8-10.8) H 11/30/17 07:01 RBC 3.21 Mil/uL (4.40-5.90) L 11/30/17 07:01 Hgb 9.6 g/dL (12.0-18.0) L 11/30/17 07:01 Hct 28.4 % (35.0-51.0) L 11/30/17 07:01 MCV 88.4 fL (80.0-94.0) 11/30/17 07:01 MCH 30.0 pg (27.0-31.0) 11/30/17 07:01 MCHC 33.9 g/dL (33.0-37.0) 11/30/17 07:01 RDW 16.1 % (11.5-14.5) H 11/30/17 07:01 Plt Count 136 K/uL (130-400) 11/30/17 07:01 MPV 8.9 fL (7.2-11.7) 11/30/17 07:01 Neut % (Auto) 84.2 % (50.0-75.0) H 11/30/17 07:01 Lymph % (Auto) 5.3 % (20.0-40.0) L 11/30/17 07:01 Riley % (Auto) 10.2 % (0.0-10.0) H 11/30/17 07:01 Eos % (Auto) 0.2 % (0.0-4.0) 11/30/17 07:01 Baso % (Auto) 0.1 % (0.0-2.0) 11/30/17 07:01 Neut # (Auto) 9.5 K/uL (1.8-7.0) H 11/30/17 07:01 Lymph # (Auto) 0.6 K/uL (1.0-4.3) L 11/30/17 07:01 Riley # (Auto) 1.1 K/uL (0.0-0.8) H 11/30/17 07:01 Eos # (Auto) 0.0 K/uL (0.0-0.7) 11/30/17 07:01 Baso # (Auto) 0.0 K/uL (0.0-0.2) 11/30/17 07:01 Neutrophils % (Manual) 92 % (50-75) H 11/30/17 07:01 Lymphocytes % (Manual) 5 % (20-40) L 11/30/17 07:01 Monocytes % (Manual) 3 % (0-10) 11/30/17 07:01 Eosinophils % (Manual) 2 % (0-4) 11/27/17 10:55 Toxic Granulation Present 11/26/17 07:11 Platelet Estimate Normal (NORMAL) 11/30/17 07:01 Polychromasia Slight 11/29/17 07:01 Hypochromasia (manual) Slight 11/29/17 07:01 Anisocytosis (manual) Slight 11/30/17 07:01 Puncture Site Rba 11/25/17 20:10 pCO2 43 mm/Hg (35-45) 11/25/17 20:10 pO2 58 mm/Hg (80-100) L 11/25/17 20:10 HCO3 30.8 mmol/L (21-28) H 11/25/17 20:10 ABG pH 7.48 (7.35-7.45) H 11/25/17 20:10 ABG Total CO2 33.3 mmol/L (22-28) H 11/25/17 20:10 ABG O2 Saturation 95.2 % (95-98) 11/25/17 20:10 ABG Base Excess 7.7 mmol/L (-2.0-3.0) H 11/25/17 20:10 ABG Hemoglobin 11.7 g/dL (11.7-17.4) 11/25/17 20:10 ABG Carboxyhemoglobin 2.7 % (0.5-1.5) H 11/25/17 20:10 POC ABG HHb (Measured) 4.6 % (0.0-5.0) 11/25/17 20:10 ABG Methemoglobin 1.2 % (0.0-3.0) 11/25/17 20:10 Ananda Test Pos 11/25/17 20:10 A-a O2 Difference 38.0 mm/Hg 11/25/17 20:10 Respiratory Index 0.7 11/25/17 20:10 Hgb O2 Saturation 91.5 % (95.0-98.0) L 11/25/17 20:10 FiO2 21.0 % 11/25/17 20:10 Sodium 136 mmol/L (132-148) 11/30/17 07:01 Potassium 4.8 mmol/L (3.6-5.2) 11/30/17 07:01 Chloride 101 mmol/L (98-107) 11/30/17 07:01 Carbon Dioxide 24 mmol/L (22-30) 11/30/17 07:01 Anion Gap 16 (10-20) 11/30/17 07:01 BUN 67 mg/dL (9-20) H 11/30/17 07:01 Creatinine 4.7 mg/dL (0.8-1.5) H 11/30/17 07:01 Est GFR ( Amer) 16 11/30/17 07:01 Est GFR (Non-Af Amer) 13 11/30/17 07:01 POC Glucose (mg/dL) 219 mg/dL (65-110) H 11/30/17 21:10 Random Glucose 292 mg/dL (75-110) H 11/30/17 07:01 Hemoglobin A1c 6.6 % (4.2-6.5) H 11/25/17 06:22 Calcium 7.9 mg/dl (8.6-10.4) L 11/30/17 07:01 Phosphorus 4.9 mg/dL (2.5-4.5) H 11/30/17 07:01 Magnesium 2.0 mg/dL (1.6-2.3) 11/30/17 07:01 Total Bilirubin 0.5 mg/dL (0.2-1.3) 11/30/17 07:01 AST 18 U/L (17-59) 11/30/17 07:01 ALT 37 U/L (21-72) 11/30/17 07:01 Alkaline Phosphatase 71 U/L (38-126) 11/30/17 07:01 Total Creatine Kinase 85 U/L (55-170) 11/25/17 22:21 CK-MB (Mass) 1.10 ng/mL (0.0-3.38) 11/25/17 22:21 Troponin I 0.2280 ng/mL (0.00-0.120) H* 11/25/17 22:21 NT-Pro-B Natriuret Pep 5990 pg/mL (0-900) H 11/25/17 11:53 Total Protein 5.9 g/dL (6.3-8.3) L 11/30/17 07:01 Albumin 3.1 g/dL (3.5-5.0) L 11/30/17 07:01 Globulin 2.8 gm/dL (2.2-3.9) 11/30/17 07:01 Albumin/Globulin Ratio 1.1 (1.0-2.1) 11/30/17 07:01 Triglycerides 424 mg/dL (0-149) H 11/25/17 06:22 Cholesterol 187 mg/dL (0-199) 11/25/17 06:22 LDL Cholesterol Direct 64 mg/dL (0-129) 11/25/17 06:22 HDL Cholesterol 28 mg/dL (30-70) L 11/25/17 06:22 Procalcitonin 1.39 NG/ML (0.19-0.49) H 11/25/17 22:21 Free T4 0.97 ng/dL (0.78-2.19) 11/25/17 06:22 TSH 3rd Generation 2.37 mIU/L (0.46-4.68) 11/25/17 06:22 Urine Color Yellow (YELLOW) 11/25/17 22:21 Urine Clarity Clear (Clear) 11/25/17 22:21 Urine pH 7.0 (5.0-8.0) 11/25/17 22:21 Ur Specific [place] 1.011 (1.003-1.030) 11/25/17 22:21 Urine Protein 3+ mg/dL (NEGATIVE) H 11/25/17 22:21 Urine Glucose (UA) 1+ mg/dL (Normal) H 11/25/17 22:21 Urine Ketones Negative mg/dL (NEGATIVE) 11/25/17 22:21 Urine Blood Negative (NEGATIVE) 11/25/17 22:21 Urine Nitrate Negative (NEGATIVE) 11/25/17 22:21 Urine Bilirubin Negative (NEGATIVE) 11/25/17 22:21 Urine Urobilinogen Normal mg/dL (0.2-1.0) 11/25/17 22:21 Ur Leukocyte Esterase Neg Larisa/uL (Negative) 11/25/17 22:21 Urine WBC (Auto) 1 /hpf (0-5) 11/25/17 22:21 Urine RBC (Auto) < 1 /hpf (0-3) 11/25/17 22:21 Ur Squamous Epith Cells < 1 /hpf (0-5) 11/25/17 22:21 Urine Bacteria Rare (<OCC) 11/25/17 22:21 Influenza Typ A,B (EIA) Negative for flu a/b (NEGATIVE) 11/25/17 06:56 H.influenzae Type B Ag Negative (NEGATIVE) 11/25/17 11:45 Ur L.pneumophila Ag Cancelled 11/25/17 11:45 M.pneumoniae IgG Titer 3.80 (<=0.90) H 11/25/17 22:21 Mycoplasma pneumon IgM Negative (NEGATIVE) 11/25/17 22:21 N.meningitidis ACY/W135 Negative (NEGATIVE) 11/25/17 11:45 N.meningi B/E.coli K1 Ag Negative (NEGATIVE) 11/25/17 11:45 Group B Strep Antigen Negative (NEGATIVE) 11/25/17 11:45 S. pneumoniae Antigen Negative (NEGATIVE) 11/25/17 11:45 - Hospital Course Hospital Course: Attending: Dr. Mert Black. Consults Fernandez Vogel Pt left against medical advice Was not cleared for discharge. Procedures: dialysis No complications Discharge diagnoses 1. ESRD with fluid overload 2. Community acquired pneumonia. 3. HTN 4. Asthma 5. Diabetes 6. Mild ascending aortic aneurysm 7. Anemia Labs: see lab data section HPI: see h/p This is a 57 yo male with past medical hx of asthma, HTN, ESRD getting HD MF, diabetes, pacemaker presenting with chief complaint of shortness of breath and cough. Pt states he has been feeling more short of breath for the past 2 weeks, but he is chronically short of breath "all his life." He says that he was feeling sick and under the weather along with a sore throat about 2 weeks ago. 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 Dr. Brown gave him an antibiotic and unknown other medication. He took these meds but was feeling worse so he came to [facility] ER this past wednesday. He signed out against medical advice and was given a tx of prednisone and azithromycin. He began taking these meds but was not getting any better so he came into ER today. He denies chest pain and palpitations. He reports cough with brown phlegm. He has a maturing AV fistula left arm. In the meantime, he is getting dialysis through a temporary catheter. His last dialysis appt was this past wednesday and they took off 3.5 L. He says he does not miss dialysis. He reports recent stress test but cannot recall results. He reports recent cath with Dr. Brown in June 2017. He still produces urine. He denies any urinary sx. He denies sick contacts or recent travel. He denies fevers and chills. Pt has never had a colonoscopy. This is a 57 yo male with past medical hx of asthma, HTN, pacemaker , heart disease and heart failure with reduced ejection fraction, presenting with shortness of breath and cough x 2 weeks. 1. Shortness of breath -likely secondary to community acquired pneumonia -blood cultures negative to date -sputum cultures -D dimer will likely be elevated -V/Q scan pending low probability for PE -admission to telemetry -cardio consult. Dr. Presley. recs appreciated. -serial troponins elevated x 3 -serial ekgs -initial ekg shows normal sinus rhythm 84 -CXR shows infiltrate right lower lobe. -recent echo shows 40-45 percent ef, global hypokinesis of left ventricle, LVH -will start avelox IV 400 mg daily>> changed to azithromyin 500 mg po daily -added cefepime 1g IV daily -ID consult. recs appreciated. Dr. Rosales. failed outpatient tx. -flu negative -BNP elevated at 5990, but likely secondary to renal disease. 2. Anemia -normocytic -iron, tibc, ferritin -LDH and haptoglobin -stool occult blood -reticulocyte count -likely anemia of chronic disease 3. hx of ESRD -on HD -nephrology consult. recs appreciated. Dr. Vogel. -continue sevlamer 800 mg PO TID+ 4. hx of HTN -continue coreg 12.5 mg po bid -continue hydralazine 100 mg po q 8 hrs 5. Hx of asthma -continue singulair 10 mg po hs -duonebs Rq6 hrs zulema -pulmicort added .5 mg INH q 12 hrs. 6. hx of DM/IGT -HGB a 1c 6.6 -most recent a1C unknown -regular insulin low dose sliding scale sc -hypoglycemia protocol -continue crestor 20 mg po hs 7. mild ascending aortic aneurysm -needs follow up in 6-12 months. 6. GI/DVT ppx -protonix 40 mg IV daily -SCDs -Diet: renal dialysis diet Code status: full code Discharge medications -pt was not discharged on any medications as he left against medical advice Discharge instructions: pt was not discharged with any instructions as he was not officially discharged. he left against medical advice. - Date & Time of H&P Date of H&P: 11/25/17 Time of H&P: 00:03 Discharge Exam - Head Exam Head Exam: ATRAUMATIC, NORMAL INSPECTION, NORMOCEPHALIC - Eye Exam Eye Exam: EOMI - ENT Exam ENT Exam: Mucous Membranes Moist - Neck Exam Neck exam: Full Rom, Normal Inspection - Respiratory Exam Respiratory Exam: Decreased Breath Sounds, Wheezes. absent: NORMAL BREATHING PATTERN - Cardiovascular Exam Cardiovascular Exam: +S1, +S2 - GI/Abdominal Exam GI & Abdominal Exam: Normal Bowel Sounds - Extremities Exam Extremities exam: full ROM, pedal edema - Neurological Exam Neurological exam: Alert, Oriented x3 - Psychiatric Exam Psychiatric exam: Anxious - Skin Skin Exam: Dry, Intact, Normal Color, Warm Discharge Plan - Follow Up Plan Condition: UNKNOWN Disposition: AGAINST MEDICAL ADVICE
[2017-12-01] MEDS ORDERED: Fluticasone-Salmeterol 100-50mcg Diskus INH SCH (08:00)
== END 2017-12-01 04:15 | disposition left against medical advice (07) | DRG 193 ==
LOC: C.ER 18:34 → C.3T 20:36 → C.9E 20:36 → C.6T 11-25 01:50
PROVIDERS: ADMIT Hospitalist; ATTEND Family Medicine
PROC: 5A09557 Assistance with Respiratory Ventilation, Greater than 96 Consecutive Hours, Continuous Positive Airway Pressure (ICD-10-PCS; principal; 2017-11-25)
PROC: 5A1D70Z Performance of Urinary Filtration, Intermittent, Less than 6 Hours Per Day (ICD-10-PCS; 2017-11-25)
DX: J18.9 Pneumonia, unspecified organism (principal); I21.4 Non-ST elevation (NSTEMI) myocardial infarction; J96.90 Respiratory failure, unspecified, unspecified whether with hypoxia or hypercapnia; N18.6 End stage renal disease; Z68.42 Body mass index [BMI] 45.0-49.9, adult; I13.2 Hypertensive heart and chronic kidney disease with heart failure and with stage 5 chronic kidney disease, or end stage renal disease; J44.0 Chronic obstructive pulmonary disease with (acute) lower respiratory infection; I42.9 Cardiomyopathy, unspecified; D63.1 Anemia in chronic kidney disease; E11.22 Type 2 diabetes mellitus with diabetic chronic kidney disease; E11.65 Type 2 diabetes mellitus with hyperglycemia; G47.33 Obstructive sleep apnea (adult) (pediatric); I25.10 Atherosclerotic heart disease of native coronary artery without angina pectoris; Z79.4 Long term (current) use of insulin; I71.2 Thoracic aortic aneurysm, without rupture; I50.9 Heart failure, unspecified; I35.0 Nonrheumatic aortic (valve) stenosis; Z99.2 Dependence on renal dialysis; T38.0X5A Adverse effect of glucocorticoids and synthetic analogues, initial encounter; Z85.528 Personal history of other malignant neoplasm of kidney; Z91.19 Patient's noncompliance with other medical treatment and regimen; Z95.0 Presence of cardiac pacemaker; E66.01 Morbid (severe) obesity due to excess calories

== ENCOUNTER 2017-12-12 11:10 | Inpatient (IN) | payer MEDICARE ==
[2017-12-12 11:11] VITALS: BMI 44.6
--- NOTE | 2017-12-12 11:40 | C.PDOC ---
History Of Present Illness 57-YEAR-OLD MALE, REFERRED BY DR Deejay HAUSER FOR EVAL. PENDING NEPHRECTOMY 12/13 FOR RENAL CA. past medical hx of asthma, HTN, ESRD getting HD MF, diabetes, pacemaker LAST HD 12/10. CO SOB, INCR NEB USE SINCE YEST. S/P EVAL FOR SLEEP APNEA , PENDING CPAP "MASKING FITTING" BUT CURRENTLY NOT USING CPAP. NO CP, FEVER, COUGH. EXAM MILD DIST NONTOXIC LUNGS +TACHYPNEA SPEAKING FULL SENTENCES NO W/R/R NO EDEMA REMAINDER NEG Time Seen by Provider: 12/12/17 11:21 Chief Complaint (Nursing): Shortness Of Breath History Per: Patient History/Exam Limitations: no limitations Past Medical History Reviewed: Historical Data, Nursing Documentation, Vital Signs Vital Signs: Last Vital Signs Temp 98.8 F 12/12/17 11:13 Pulse 98 H 12/12/17 11:13 Resp 20 12/12/17 12:04 BP 171/79 H 12/12/17 11:13 Pulse Ox 94 L 12/12/17 13:54 - Medical History PMH: Asthma, CHF, HTN, Pneumonia, End Stage Renal Disease, Chronic Kidney Disease Surgical History: Appendectomy (1982), Pacemaker - [facility] Procedures (11/24/17) ASSISTANCE WITH RESPIRATORY VENTILATION, >96 HRS, CPAP (11/24/17) BYPASS LEFT RADIAL ARTERY TO LOWER ARM VEIN, OPEN APPROACH (07/15/17) FLUOROSCOPY OF SUPERIOR VENA CAVA, GUIDANCE (07/15/17) INSERTION OF INFUSION DEV INTO SUP VENA CAVA, PERC APPROACH (07/15/17) INSERTION OF VAD INTO CHEST SUBCU/FASCIA, PERC APPROACH (07/15/17) TRANSFUSE NONAUT RED BLOOD CELLS IN PERIPH VEIN, PERC (07/15/17) Family History: States: No Known Family Hx - Social History Hx Alcohol Use: No Hx Substance Use: No - Immunization History Hx Tetanus Toxoid Vaccination: No Hx Influenza Vaccination: No Hx Pneumococcal Vaccination: Yes Review Of Systems Constitutional: Negative for: Fever Cardiovascular: Negative for: Chest Pain Respiratory: Positive for: Shortness of Breath. Negative for: Cough Gastrointestinal: Negative for: Nausea, Vomiting, Abdominal Pain Musculoskeletal: Negative for: Back Pain Skin: Negative for: Rash Neurological: Negative for: Weakness, Numbness, Headache, Dizziness Physical Exam - Physical Exam Appears: Non-toxic, No Acute Distress Skin: Normal Color, Warm, Dry, No Rash Head: Atraumatic, Normacephalic Eye(s): bilateral: Normal Inspection, PERRL Nose: Normal Oral Mucosa: Moist Lips: Normal Appearing Neck: Normal ROM Chest: Symmetrical Cardiovascular: Rhythm Regular, No Murmur Respiratory: No Accessory Muscle Use, No Rales, No Rhonchi, No Wheezing, Other ( +TACHYPNEA SPEAKING FULL SENTENCES NO W/R/R) Gastrointestinal/Abdominal: Soft, No Tenderness Extremity: Normal ROM, No Deformity, No Swelling Neurological/Psych: Oriented x3, Normal Speech ED Course And Treatment - Laboratory Results Result Diagrams: 12/12/17 11:49 12/12/17 11:49 ECG: Interpreted By Me, Viewed By Me ECG Rhythm: Sinus Rhythm ECG Interpretation: No Acute Changes Rate From EC O2 Sat by Pulse Oximetry: 94 (RA) Pulse Ox Interpretation: Normal Progress - Re-Evaluation Re-evaluation Note: 12/12/17 11:48 D/W DR DEL RIO WILL ARRANGE FOR HD 12/12/17 12:27 D/W DR Deejay HAUSER WILL CONSULT 12/12/17 12:45 D/W DR CIFUENTES C/F PMD. WILL ADMIT. NO CP, NARD. ON VAPOTHERM - Data Reviewed Data Reviewed: Lab, Diagnostic imaging, EKG, Old records Disposition Counseled Patient/Family Regarding: Diagnosis - Disposition Disposition: HOSPITALIZED Disposition Time: 12:48 Condition: SERIOUS - POA Present On Arrival: None, Poor Glycemic Control - Clinical Impression Clinical Impression: NSTEMI (non-ST elevated myocardial infarction), ESRD (end stage renal disease) on dialysis, Asthma exacerbation - Scribe Statement The provider has reviewed the documentation as recorded by the Scribe (Sanjuana Spence) All medical record entries made by the Scribe were at my direction and personally dictated by me. I have reviewed the chart and agree that the record accurately reflects my personal performance of the history, physical exam, medical decision making, and the department course for this patient. I have also personally directed, reviewed, and agree with the discharge instructions and disposition. Decision To Admit - Pt Status Changed To: Hospital Disposition Of: Inpatient - Admit Certification Admit to Inpatient:: After my assessment, the patient will require hospitalization for at least two midnights. This is because of the severity of symptoms shown, intensity of services needed, and/or the medical risk in this patient being treated as an outpatient. - InPatient: Physician Admission Certification: I certify that this patient requires 2 or more midnights of care for the following reason:: SEE NOTE - . Bed Request Type: Telemetry Admitting Physician: Edvin Pedraza Patient Diagnosis: NSTEMI (non-ST elevated myocardial infarction), ESRD (end stage renal disease) on dialysis, Asthma exacerbation
[2017-12-12 11:58] LABS: BASO % 0.5 % (0.0-2.0); EOS # 0.2 K/uL (0.0-0.7); EOS % 2.5 % (0.0-4.0); HEMOGLOBIN 10.1 g/dL (12.0-18.0); LYMPH # 0.6 K/uL (1.0-4.3); MEAN CELL VOLUME 89.5 fL (80.0-94.0); MEAN CORPUSCULAR HEMOGLOBIN 30.3 pg (27.0-31.0); MEAN CORPUSCULAR HGB CONC 33.8 g/dL (33.0-37.0); MEAN PLATELET VOLUME 8.8 fL (7.2-11.7); MONO # 0.6 K/uL (0.0-0.8); MONO % 6.8 % (0.0-10.0); NEUT # 7.7 K/uL (1.8-7.0); NEUT % 83.2 % (50.0-75.0); PLATELET COUNT 134 K/uL (130-400); RBC 3.33 Mil/uL (4.40-5.90); WHITE BLOOD COUNT 9.2 K/uL (4.8-10.8)
[2017-12-12] MEDS ORDERED: Albuterol-Ipratrop 3 mg / 0.5 (3 ml) UD ONE (12:02)
[2017-12-12 12:09] LABS: PROTHROMBIN TIME 10.8 SECONDS (9.7-12.2)
[2017-12-12 12:09] LABS: VENOUS BLOOD GAS BASE EXCESS 3.4 mmol/L (0.0-2.0); VENOUS BLOOD GAS PCO2 50 mmHg (40-60); VENOUS BLOOD GAS PO2 21 mm/Hg (30-55); VENOUS BLOOD PH 7.38 (7.32-7.43)
[2017-12-12] MEDS: Albuterol-Ipratrop 3 mg / 0.5 (3 ml) UD IH SCH (12:10)
[2017-12-12 12:19] LABS: ANISOCYTOSIS SLIGHT; EOSINOPHIL 1 % (0-4); LYMPHOCYTE 11 % (20-40); MONOCYTE 6 % (0-10); NEUTROPHIL 82 % (50-75); PLATELET ESTIMATE NORMAL (NORMAL); TOTAL CELLS COUNTED 100
[2017-12-12 12:20] LABS: OVALOCYTES SLIGHT; POIKILOCYTOSIS SLIGHT; POLYCHROMIC SLIGHT
--- NOTE | 2017-12-12 12:21 | RAD ---
PROCEDURE: CHEST RADIOGRAPH, 1 VIEW HISTORY: SOB COMPARISON: Comparison is made with 11/28/2017 FINDINGS: LUNGS: No significant interval change in the lungs noted since the previous exam. PLEURA: No pneumothorax or pleural fluid seen. CARDIOVASCULAR: Cardiomegaly is again noted. Single wire left-sided pacemaker or AICD again noted in place. Right-sided dialysis catheter is again noted in place. OSSEOUS STRUCTURES: No significant abnormalities. VISUALIZED UPPER ABDOMEN: Normal. OTHER FINDINGS: None. IMPRESSION: No significant interval change noted since the previous study. Cardiomegaly and mild pulmonary vascular congestion.
[2017-12-12 12:22] LABS: ALB/GLOB RATIO 1.5 (1.0-2.1); CALCIUM 8.7 mg/dl (8.6-10.4)
[2017-12-12 12:33] LABS: TROPONIN I 0.229 ng/mL (0.00-0.120)
[2017-12-12] MEDS ORDERED: MethylPREDNISolone 40 mg Vial IVP STA (12:49)
[2017-12-12] MEDS ORDERED: MethylPREDNISolone 40 mg Vial ONE (12:54)
[2017-12-12] MEDS ORDERED: EPOETIN ALFA 10,000 UNIT/ML ML IV ONE (13:10)
[2017-12-12] MEDS ORDERED: Paricalcitol 2 mcg/ml Inj IV ONE (13:11)
[2017-12-12 15:35] LABS: SQUAMOUS EPITHIAL < 1 /hpf (0-5); URINE BILIRUBIN NEGATIVE (NEGATIVE); URINE BLOOD NEGATIVE (NEGATIVE); URINE CLARITY Clear (Clear); URINE COLOR Yellow (YELLOW); URINE GLUCOSE (UA) 2+ mg/dL (Normal); URINE LEUKOCYTE ESTERASE NEG Leu/uL (Negative); URINE PROTEIN 3+ mg/dL (NEGATIVE); URINE UROBILINOGEN NORMAL mg/dL (0.2-1.0)
--- NOTE | 2017-12-12 16:16 | CP.PCM.HP ---
<Heather Cade - Last Filed: 12/12/17 17:49> History of Present Illness - History of Present Illness History of Present Illness: HPI: 57 year old male with past medical history of renal cell cancer, NIDDM, HLD , HTN, ESRD on HD MWF, CHF with pacemaker placement, SHYANN, psented to hospital for shortness of breath worse with exertion. Patient is scheduled to have nephrectromy with Dr. Deejay Bartlett tomorrow. He was sent into the ED by Dr. Bartlett for worsening dyspnea and for possibly needing an additional dialysis treatment prior to his procedure. Patient states that dyspnea began yesterday and is worse with exertion. Today he used his Ventolin inhaler twice which improved his breathing. Patient denies having any CP, coughing, fevers, chills , abd pain, N/V/D/C at home. Patient is scheduled for left total nephrectomy tomorrow. He states that he was seen by his elastic yarn twister, Dr. Brown for medical clearance. Per patient, he had a recent stress test and was medically cleared by Dr. Brown. In ED, pt was noted to be hypoxic with saturation of 94% on RA. He was started on vasotherm and breathing improved. PMD: Dr.Merwin Brown PMH: as above PSH: Left arm radio-cephalic AV Fistula, Dialysis catheter insertion, Appendectomy, Pacemaker placement Allergies: NKDA FH: Mother- - [place]; Father- living- no medical issues Social hx: Denies smoking. Former alcohol drinker. Denies drug use. Fully mobile w/o assistnace. Does not work; on disability due to his asthma. Present on Admission - Present on Admission Any Indicators Present on Admission: No Review of Systems - Constitutional Constitutional: absent: Chills, Fever - EENT Eyes: absent: Blurred Vision, Change in Vision Nose/Mouth/Throat: absent: Nasal Congestion, Nasal Discharge, Dysphagia, Sore Throat - Cardiovascular Cardiovascular: Dyspnea, Dyspnea on Exertion. absent: Chest Pain, Chest Pain with Activity, Edema, Leg Edema - Respiratory Respiratory: Dyspnea, Dyspnea on Exertion. absent: Cough, Wheezing, Chest Congestion, Pain with Coughing - Gastrointestinal Gastrointestinal: absent: Abdominal Pain, Constipation, Diarrhea, Nausea, Vomiting - Genitourinary Genitourinary: absent: Dysuria, Urinary Frequency - Musculoskeletal Musculoskeletal: absent: Back Pain, Neck Pain, Numbness, Tingling - Integumentary Integumentary: absent: Acne, Lesions, Rash - Neurological Neurological: absent: Numbness, Headaches, Paresthesias, Vertigo, Weakness - Psychiatric Psychiatric: absent: Anxiety, Depression Past Patient History - Infectious Disease Hx of Infectious Diseases: None - Tetanus Immunizations Tetanus Immunization: Unknown - Past Medical History & Family History Past Medical History?: Yes - Past Social History Smoking Status: Never Smoked Chewing Tobacco Use: No Cigar Use: No Alcohol: None Drugs: Denies - CARDIAC Hx Congestive Heart Failure: Yes Hx Hypertension: Yes Hx Pacemaker: Yes - PULMONARY Hx Asthma: Yes Hx Pneumonia: Yes - NEUROLOGICAL Hx Neurological Disorder: No - HEENT Hx HEENT Problems: No - RENAL Hx Chronic Kidney Disease: Yes - ENDOCRINE/METABOLIC Hx Diabetes Mellitus Type 2: Yes - HEMATOLOGICAL/ONCOLOGICAL Hx Blood Disorders: No - INTEGUMENTARY Hx Dermatological Problems: No - MUSCULOSKELETAL/RHEUMATOLOGICAL Hx Falls: No Hx Herniated Disk: Yes - GASTROINTESTINAL Hx Gastrointestinal Disorders: No - GENITOURINARY/GYNECOLOGICAL Hx Genitourinary Disorders: No - PSYCHIATRIC Hx Substance Use: No - SURGICAL HISTORY Hx Appendectomy: Yes (1982) - ANESTHESIA Hx Anesthesia Reactions: No Meds Allergies/Adverse Reactions: Allergies Allergy/AdvReac Type Severity Reaction Status Date / Time No Known Allergies Allergy Verified 12/12/17 11:16 Physical Exam - Constitutional Appears: Non-toxic, No Acute Distress - Head Exam Head Exam: ATRAUMATIC, NORMOCEPHALIC - ENT Exam ENT Exam: Mucous Membranes Moist - Respiratory Exam Respiratory Exam: Clear to Auscultation Bilateral. absent: Accessory Muscle Use , Rales, Rhonchi, Wheezes, Respiratory Distress - Cardiovascular Exam Cardiovascular Exam: REGULAR RHYTHM, +S1, +S2. absent: Diastolic murmur, Gallop , Rubs, Systolic Murmur - GI/Abdominal Exam GI & Abdominal Exam: Normal Bowel Sounds, Soft. absent: Distended, Firm, Guarding, Rigid, Tenderness - Extremities Exam Extremities exam: Negative for: pedal edema, tenderness - Neurological Exam Neurological exam: Alert, Oriented x3 - Psychiatric Exam Psychiatric exam: Normal Affect, Normal Mood - Skin Skin Exam: Dry, Intact, Normal Color, Warm Results - Vital Signs Recent Vital Signs: Last Vital Signs Temp 98 F 12/12/17 14:25 Pulse 85 12/12/17 15:08 Resp 19 12/12/17 15:45 BP 178/87 H 12/12/17 15:45 Pulse Ox 100 12/12/17 15:45 - Labs Result Diagrams: 12/12/17 11:49 12/12/17 11:49 Labs: Laboratory Results - last 24 hr 12/12/17 12/12/17 12/12/17 11:49 11:49 11:49 WBC 9.2 RBC 3.33 L Hgb 10.1 L Hct 29.8 L MCV 89.5 MCH 30.3 MCHC 33.8 RDW 17.0 H Plt Count 134 MPV 8.8 Neut % (Auto) 83.2 H Lymph % (Auto) 7.0 L [place] % (Auto) 6.8 Eos % (Auto) 2.5 Baso % (Auto) 0.5 Neut # (Auto) 7.7 H Lymph # (Auto) 0.6 L [place] # (Auto) 0.6 Eos # (Auto) 0.2 Baso # (Auto) 0.0 Neutrophils % (Manual) 82 H Lymphocytes % (Manual) 11 L Monocytes % (Manual) 6 Eosinophils % (Manual) 1 Platelet Estimate Normal Polychromasia Slight Poikilocytosis (manual Slight Anisocytosis (manual) Slight Ovalocytes Slight PT 10.8 INR 1.0 APTT 31 pO2 VBG pH VBG pCO2 VBG HCO3 VBG Total CO2 VBG O2 Sat (Calc) VBG Base Excess VBG Potassium Glucose Lactate Sodium 144 Potassium 3.7 Chloride 103 Carbon Dioxide 26 Anion Gap 18 BUN 50 H Creatinine 5.5 H Est GFR ( Amer) 13 Est GFR (Non-Af Amer) 11 Random Glucose 192 H Calcium 8.7 Total Bilirubin 0.8 AST 54 ALT 109 H D Alkaline Phosphatase 69 Troponin I 0.2290 H* NT-Pro-B Natriuret Pep 2080 H Total Protein 6.7 Albumin 4.0 Globulin 2.7 Albumin/Globulin Ratio 1.5 Venous Blood Potassium Urine Color Urine Clarity Urine pH Ur Specific [place] Urine Protein Urine Glucose (UA) Urine Ketones Urine Blood Urine Nitrate Urine Bilirubin Urine Urobilinogen Ur Leukocyte Esterase Urine WBC (Auto) Ur Squamous Epith Cells Blood Type 12/12/17 12/12/17 12/12/17 12:05 15:11 15:32 WBC RBC Hgb Hct MCV MCH MCHC RDW Plt Count MPV Neut % (Auto) Lymph % (Auto) [place] % (Auto) Eos % (Auto) Baso % (Auto) Neut # (Auto) Lymph # (Auto) [place] # (Auto) Eos # (Auto) Baso # (Auto) Neutrophils % (Manual) Lymphocytes % (Manual) Monocytes % (Manual) Eosinophils % (Manual) Platelet Estimate Polychromasia Poikilocytosis (manual Anisocytosis (manual) Ovalocytes PT INR APTT pO2 21 L VBG pH 7.38 VBG pCO2 50 VBG HCO3 25.8 VBG Total CO2 31.1 H VBG O2 Sat (Calc) 61.5 VBG Base Excess 3.4 H VBG Potassium 3.4 L Glucose 239 H Lactate 1.5 Sodium 142.0 Potassium Chloride 109.0 H Carbon Dioxide Anion Gap BUN Creatinine Est GFR ( Amer) Est GFR (Non-Af Amer) Random Glucose Calcium Total Bilirubin AST ALT Alkaline Phosphatase Troponin I NT-Pro-B Natriuret Pep Total Protein Albumin Globulin Albumin/Globulin Ratio Venous Blood Potassium 3.4 L Urine Color Yellow Urine Clarity Clear Urine pH 6.0 Ur Specific [place] 1.012 Urine Protein 3+ H Urine Glucose (UA) 2+ H Urine Ketones Negative Urine Blood Negative Urine Nitrate Negative Urine Bilirubin Negative Urine Urobilinogen Normal Ur Leukocyte Esterase Neg Urine WBC (Auto) 1 Ur Squamous Epith Cells < 1 Blood Type O POSITIVE Assessment & Plan - Assessment and Plan (Free Text) Assessment: 57 year old male with past medical history of renal cell cancer, NIDDM, HLD, HTN , ESRD on HD MWF, CHF with pacemaker placement, SHYANN is admitted for COPD exacerbation and possible nephrectomy scheduled for tomorrow Dyspnea likely 2/2 COPD exacerbation - CXR on admission was unchanged from previous imagining which showed cardiomegaly and mild pulm vascular congestion - ProBNP elevated on admission but improved from previous admissions - Troponin were elevated on admission but are similar to what they have been on previous admission. Elevation likely due to CKD - EKG showed NSR with no ST changes. Unchanged from previous EKG - Dr. Pedraza spoke with patient's elastic yarn twister, Dr. Brown who states that patient has been cleared for surgery. He also stated that no need to trend troponins and ekg due hx of CKD -Will consult pulm, Dr. Klein -Leigh prn for SOB -Cotninue home med: Pulmicort and singulair -Pt received solumedrol 80 IVP in ed Renal cell carcinoma - Pt scheduled for left total nephrectomy tomorrow with Dr. Bartlett - Dr. Bartlett is consulted - NPO past midnight except meds ESRD on HD MWF - Pt received dialysis treatment in ED - Nephrologis,t Dr. Vogel is consulted - Continue home medication: Renvela, procrit MWF CHF with pacemaker - Will continue home medications: Coreg 12.5 mg po bid, hydralazine 100 mg po q 8 - Will hold plavix/aspirin for procedure DM - Will hold home oral hypoglycemic medications for procedure - Accuchecks ACHS - ISS low dose as pt will be npo past midnight - hypoglycemic protocol - Hgb A1c 11/2017 was 6.6 HLD - Will continue statin therapy - Lipid panel on 11/2017 showed normal LDL and cholestrol. TG were 424. HDL 28 HTN - Continue home medication: coreg and hydralazine - will continue to monitor SHYANN - CPAP at night and during dialysis Prophyalxis - No oral AC for procedure tomorrow - SCDs - Protonix Case discussed with attending, Dr. Pedraza - Date & Time Date: 12/12/17 Time: 18:01 <Edvin Pedraza - Last Filed: 12/12/17 19:05> Results - Vital Signs Recent Vital Signs: Last Vital Signs Temp 97.9 F 12/12/17 18:15 Pulse 89 12/12/17 18:15 Resp 18 12/12/17 18:15 BP 167/86 H 12/12/17 18:44 Pulse Ox 96 12/12/17 18:15 - Labs Result Diagrams: 12/12/17 11:49 12/12/17 11:49 Labs: Laboratory Results - last 24 hr 12/12/17 12/12/17 12/12/17 11:49 11:49 11:49 WBC 9.2 RBC 3.33 L Hgb 10.1 L Hct 29.8 L MCV 89.5 MCH 30.3 MCHC 33.8 RDW 17.0 H Plt Count 134 MPV 8.8 Neut % (Auto) 83.2 H Lymph % (Auto) 7.0 L [place] % (Auto) 6.8 Eos % (Auto) 2.5 Baso % (Auto) 0.5 Neut # (Auto) 7.7 H Lymph # (Auto) 0.6 L [place] # (Auto) 0.6 Eos # (Auto) 0.2 Baso # (Auto) 0.0 Neutrophils % (Manual) 82 H Lymphocytes % (Manual) 11 L Monocytes % (Manual) 6 Eosinophils % (Manual) 1 Platelet Estimate Normal Polychromasia Slight Poikilocytosis (manual Slight Anisocytosis (manual) Slight Ovalocytes Slight PT 10.8 INR 1.0 APTT 31 pO2 VBG pH VBG pCO2 VBG HCO3 VBG Total CO2 VBG O2 Sat (Calc) VBG Base Excess VBG Potassium Glucose Lactate Sodium 144 Potassium 3.7 Chloride 103 Carbon Dioxide 26 Anion Gap 18 BUN 50 H Creatinine 5.5 H Est GFR ( Amer) 13 Est GFR (Non-Af Amer) 11 POC Glucose (mg/dL) Random Glucose 192 H Calcium 8.7 Total Bilirubin 0.8 AST 54 ALT 109 H D Alkaline Phosphatase 69 Troponin I 0.2290 H* NT-Pro-B Natriuret Pep 2080 H Total Protein 6.7 Albumin 4.0 Globulin 2.7 Albumin/Globulin Ratio 1.5 Venous Blood Potassium Urine Color Urine Clarity Urine pH Ur Specific [place] Urine Protein Urine Glucose (UA) Urine Ketones Urine Blood Urine Nitrate Urine Bilirubin Urine Urobilinogen Ur Leukocyte Esterase Urine WBC (Auto) Ur Squamous Epith Cells Blood Type Antibody Screen 12/12/17 12/12/17 12/12/17 12:05 15:11 15:32 WBC RBC Hgb Hct MCV MCH MCHC RDW Plt Count MPV Neut % (Auto) Lymph % (Auto) [place] % (Auto) Eos % (Auto) Baso % (Auto) Neut # (Auto) Lymph # (Auto) [place] # (Auto) Eos # (Auto) Baso # (Auto) Neutrophils % (Manual) Lymphocytes % (Manual) Monocytes % (Manual) Eosinophils % (Manual) Platelet Estimate Polychromasia Poikilocytosis (manual Anisocytosis (manual) Ovalocytes PT INR APTT pO2 21 L VBG pH 7.38 VBG pCO2 50 VBG HCO3 25.8 VBG Total CO2 31.1 H VBG O2 Sat (Calc) 61.5 VBG Base Excess 3.4 H VBG Potassium 3.4 L Glucose 239 H Lactate 1.5 Sodium 142.0 Potassium Chloride 109.0 H Carbon Dioxide Anion Gap BUN Creatinine Est GFR ( Amer) Est GFR (Non-Af Amer) POC Glucose (mg/dL) Random Glucose Calcium Total Bilirubin AST ALT Alkaline Phosphatase Troponin I NT-Pro-B Natriuret Pep Total Protein Albumin Globulin Albumin/Globulin Ratio Venous Blood Potassium 3.4 L Urine Color Yellow Urine Clarity Clear Urine pH 6.0 Ur Specific [place] 1.012 Urine Protein 3+ H Urine Glucose (UA) 2+ H Urine Ketones Negative Urine Blood Negative Urine Nitrate Negative Urine Bilirubin Negative Urine Urobilinogen Normal Ur Leukocyte Esterase Neg Urine WBC (Auto) 1 Ur Squamous Epith Cells < 1 Blood Type O POSITIVE Antibody Screen Negative 12/12/17 16:22 WBC RBC Hgb Hct MCV MCH MCHC RDW Plt Count MPV Neut % (Auto) Lymph % (Auto) [place] % (Auto) Eos % (Auto) Baso % (Auto) Neut # (Auto) Lymph # (Auto) [place] # (Auto) Eos # (Auto) Baso # (Auto) Neutrophils % (Manual) Lymphocytes % (Manual) Monocytes % (Manual) Eosinophils % (Manual) Platelet Estimate Polychromasia Poikilocytosis (manual Anisocytosis (manual) Ovalocytes PT INR APTT pO2 VBG pH VBG pCO2 VBG HCO3 VBG Total CO2 VBG O2 Sat (Calc) VBG Base Excess VBG Potassium Glucose Lactate Sodium Potassium Chloride Carbon Dioxide Anion Gap BUN Creatinine Est GFR ( Amer) Est GFR (Non-Af Amer) POC Glucose (mg/dL) 214 H Random Glucose Calcium Total Bilirubin AST ALT Alkaline Phosphatase Troponin I NT-Pro-B Natriuret Pep Total Protein Albumin Globulin Albumin/Globulin Ratio Venous Blood Potassium Urine Color Urine Clarity Urine pH Ur Specific [place] Urine Protein Urine Glucose (UA) Urine Ketones Urine Blood Urine Nitrate Urine Bilirubin Urine Urobilinogen Ur Leukocyte Esterase Urine WBC (Auto) Ur Squamous Epith Cells Blood Type Antibody Screen Attending/Attestation - Attestation I have personally seen and examined this patient.: Yes I have fully participated in the care of the patient.: Yes I have reviewed all pertinent clinical information: Yes Notes (Text): patient was seen and examined in the ER.He was getting dialysis. On CPAP. Denies sob,denies chest pain. had mild sob this morning ,feeling better after started dialysis. He think that he had too much liquids yesterday made him to have sob. As per pt he was seen by his elastic yarn twister as an out patient for pre op evaluation. I spoked to DR Kevin Herrera . He told me that he is cleared for surgery. I discussed about his troponin also(Chronic elevation) Spoke to DR Klein . he will see him.ABG requested d/w the resident .I agree with her assessment and the plan.
--- NOTE | 2017-12-12 16:24 | CP.PCM.CON ---
History of Present Illness - History of Present Illness History of Present Illness: pt is seen and examined, follow up consult is dictated #[id number] seen in hd,uf goal is 4.5 lit Past Patient History - Infectious Disease Hx of Infectious Diseases: None - Tetanus Immunizations Tetanus Immunization: Unknown - Past Medical History & Family History Past Medical History?: Yes - Past Social History Smoking Status: Never Smoked - CARDIAC Hx Congestive Heart Failure: Yes Hx Hypertension: Yes Hx Pacemaker: Yes - PULMONARY Hx Asthma: Yes Hx Pneumonia: Yes - NEUROLOGICAL Hx Neurological Disorder: No - HEENT Hx HEENT Problems: No - RENAL Hx Chronic Kidney Disease: Yes - ENDOCRINE/METABOLIC Hx Diabetes Mellitus Type 2: Yes - HEMATOLOGICAL/ONCOLOGICAL Hx Blood Disorders: No - INTEGUMENTARY Hx Dermatological Problems: No - MUSCULOSKELETAL/RHEUMATOLOGICAL Hx Falls: No Hx Herniated Disk: Yes - GASTROINTESTINAL Hx Gastrointestinal Disorders: No - GENITOURINARY/GYNECOLOGICAL Hx Genitourinary Disorders: No - PSYCHIATRIC Hx Substance Use: No - SURGICAL HISTORY Hx Appendectomy: Yes (1982) - ANESTHESIA Hx Anesthesia Reactions: No Meds Allergies/Adverse Reactions: Allergies Allergy/AdvReac Type Severity Reaction Status Date / Time No Known Allergies Allergy Verified 12/12/17 11:16 - Medications Medications: Current Medications Acetaminophen (Tylenol 325mg Tab) 650 mg PO Q6 PRN PRN Reason: Fever >100.4 F Budesonide (Pulmicort Respules) 0.5 mg INH RQ12 PRN PRN Reason: Shortness of Breath Carvedilol (Coreg) 12.5 mg PO BID BETHANY Hydralazine HCl (Apresoline) 100 mg PO Q8 BETHANY Insulin Human Regular (Novolin R) 0 unit SC ACHS BETHANY PRN Reason: Protocol Montelukast Sodium (Singulair) 10 mg PO HS BETHANY Pantoprazole Sodium (Protonix Ec Tab) 40 mg PO DAILY BETHANY Sevelamer Carbonate (Renvela) 800 mg PO TIDCC [facility] Results - Vital Signs Recent Vital Signs: Last Vital Signs Temp 98 F 12/12/17 14:25 Pulse 85 12/12/17 15:08 Resp 19 12/12/17 15:45 BP 164/88 H 12/12/17 16:15 Pulse Ox 100 12/12/17 15:45 - Labs Result Diagrams: 12/12/17 11:49 12/12/17 11:49 Labs: Laboratory Results - last 24 hr 12/12/17 12/12/17 12/12/17 11:49 11:49 11:49 WBC 9.2 RBC 3.33 L Hgb 10.1 L Hct 29.8 L MCV 89.5 MCH 30.3 MCHC 33.8 RDW 17.0 H Plt Count 134 MPV 8.8 Neut % (Auto) 83.2 H Lymph % (Auto) 7.0 L [place] % (Auto) 6.8 Eos % (Auto) 2.5 Baso % (Auto) 0.5 Neut # (Auto) 7.7 H Lymph # (Auto) 0.6 L [place] # (Auto) 0.6 Eos # (Auto) 0.2 Baso # (Auto) 0.0 Neutrophils % (Manual) 82 H Lymphocytes % (Manual) 11 L Monocytes % (Manual) 6 Eosinophils % (Manual) 1 Platelet Estimate Normal Polychromasia Slight Poikilocytosis (manual Slight Anisocytosis (manual) Slight Ovalocytes Slight PT 10.8 INR 1.0 APTT 31 pO2 VBG pH VBG pCO2 VBG HCO3 VBG Total CO2 VBG O2 Sat (Calc) VBG Base Excess VBG Potassium Glucose Lactate Sodium 144 Potassium 3.7 Chloride 103 Carbon Dioxide 26 Anion Gap 18 BUN 50 H Creatinine 5.5 H Est GFR ( Amer) 13 Est GFR (Non-Af Amer) 11 Random Glucose 192 H Calcium 8.7 Total Bilirubin 0.8 AST 54 ALT 109 H D Alkaline Phosphatase 69 Troponin I 0.2290 H* NT-Pro-B Natriuret Pep 2080 H Total Protein 6.7 Albumin 4.0 Globulin 2.7 Albumin/Globulin Ratio 1.5 Venous Blood Potassium Urine Color Urine Clarity Urine pH Ur Specific [place] Urine Protein Urine Glucose (UA) Urine Ketones Urine Blood Urine Nitrate Urine Bilirubin Urine Urobilinogen Ur Leukocyte Esterase Urine WBC (Auto) Ur Squamous Epith Cells Blood Type Antibody Screen 12/12/17 12/12/17 12/12/17 12:05 15:11 15:32 WBC RBC Hgb Hct MCV MCH MCHC RDW Plt Count MPV Neut % (Auto) Lymph % (Auto) [place] % (Auto) Eos % (Auto) Baso % (Auto) Neut # (Auto) Lymph # (Auto) [place] # (Auto) Eos # (Auto) Baso # (Auto) Neutrophils % (Manual) Lymphocytes % (Manual) Monocytes % (Manual) Eosinophils % (Manual) Platelet Estimate Polychromasia Poikilocytosis (manual Anisocytosis (manual) Ovalocytes PT INR APTT pO2 21 L VBG pH 7.38 VBG pCO2 50 VBG HCO3 25.8 VBG Total CO2 31.1 H VBG O2 Sat (Calc) 61.5 VBG Base Excess 3.4 H VBG Potassium 3.4 L Glucose 239 H Lactate 1.5 Sodium 142.0 Potassium Chloride 109.0 H Carbon Dioxide Anion Gap BUN Creatinine Est GFR ( Amer) Est GFR (Non-Af Amer) Random Glucose Calcium Total Bilirubin AST ALT Alkaline Phosphatase Troponin I NT-Pro-B Natriuret Pep Total Protein Albumin Globulin Albumin/Globulin Ratio Venous Blood Potassium 3.4 L Urine Color Yellow Urine Clarity Clear Urine pH 6.0 Ur Specific [place] 1.012 Urine Protein 3+ H Urine Glucose (UA) 2+ H Urine Ketones Negative Urine Blood Negative Urine Nitrate Negative Urine Bilirubin Negative Urine Urobilinogen Normal Ur Leukocyte Esterase Neg Urine WBC (Auto) 1 Ur Squamous Epith Cells < 1 Blood Type O POSITIVE Antibody Screen Negative
--- NOTE | 2017-12-12 17:21 | CP.PCM.CON ---
History of Present Illness - History of Present Illness History of Present Illness: Reason for consultation: pulmonary clearance for nephrectomy 57-year-old male with history of asthma, end-stage renal disease on hemodialysis , diabetes, , obstructive sleep apnea recently had sleep study done at [facility] was referred by Dr. Bartlett for nephrectomy for renal CA. Patient states that she has some chest discomfort and shortness of breath after he used the CPAP machine. Patient seen during hemodialysis. Also complaining of slight cough, denies fever chills Review of Systems - Review of Systems All systems: reviewed and no additional remarkable complaints except Past Patient History - Infectious Disease Hx of Infectious Diseases: None - Tetanus Immunizations Tetanus Immunization: Unknown - Past Medical History & Family History Past Medical History?: Yes - Past Social History Smoking Status: Never Smoked - CARDIAC Hx Congestive Heart Failure: Yes Hx Hypertension: Yes Hx Pacemaker: Yes - PULMONARY Hx Asthma: Yes Hx Pneumonia: Yes - NEUROLOGICAL Hx Neurological Disorder: No - HEENT Hx HEENT Problems: No - RENAL Hx Chronic Kidney Disease: Yes - ENDOCRINE/METABOLIC Hx Diabetes Mellitus Type 2: Yes - HEMATOLOGICAL/ONCOLOGICAL Hx Blood Disorders: No - INTEGUMENTARY Hx Dermatological Problems: No - MUSCULOSKELETAL/RHEUMATOLOGICAL Hx Falls: No Hx Herniated Disk: Yes - GASTROINTESTINAL Hx Gastrointestinal Disorders: No - GENITOURINARY/GYNECOLOGICAL Hx Genitourinary Disorders: No - PSYCHIATRIC Hx Substance Use: No - SURGICAL HISTORY Hx Appendectomy: Yes (1982) - ANESTHESIA Hx Anesthesia Reactions: No Meds Allergies/Adverse Reactions: Allergies Allergy/AdvReac Type Severity Reaction Status Date / Time No Known Allergies Allergy Verified 12/12/17 11:16 - Medications Medications: Current Medications Acetaminophen (Tylenol 325mg Tab) 650 mg PO Q6 PRN PRN Reason: Fever >100.4 F Budesonide (Pulmicort Respules) 0.5 mg INH RQ12 PRN PRN Reason: Shortness of Breath Carvedilol (Coreg) 12.5 mg PO BID [facility] Hydralazine HCl (Apresoline) 100 mg PO Q8 [facility] Insulin Human Regular (Novolin R) 0 unit SC ACHS [facility] PRN Reason: Protocol Montelukast Sodium (Singulair) 10 mg PO HS [facility] Pantoprazole Sodium (Protonix Ec Tab) 40 mg PO DAILY [facility] Sevelamer Carbonate (Renvela) 800 mg PO TIDCC [facility] Sodium Phosphate (Fleet Enema) 135 ml TX ONCE ONE Stop: 12/12/17 22:01 Physical Exam - Head Exam Head Exam: ATRAUMATIC, NORMOCEPHALIC - ENT Exam ENT Exam: Mucous Membranes Moist - Neck Exam Neck exam: Positive for: Normal Inspection - Respiratory Exam Respiratory Exam: Clear to Auscultation Bilateral - Cardiovascular Exam Cardiovascular Exam: REGULAR RHYTHM - GI/Abdominal Exam GI & Abdominal Exam: Normal Bowel Sounds - Extremities Exam Extremities exam: Positive for: pedal edema Results - Vital Signs Recent Vital Signs: Last Vital Signs Temp 98 F 12/12/17 14:25 Pulse 85 12/12/17 15:08 Resp 19 12/12/17 15:45 BP 148/87 12/12/17 17:15 Pulse Ox 100 12/12/17 15:45 - Labs Result Diagrams: 12/12/17 11:49 12/12/17 11:49 Labs: Laboratory Results - last 24 hr 12/12/17 12/12/17 12/12/17 11:49 11:49 11:49 WBC 9.2 RBC 3.33 L Hgb 10.1 L Hct 29.8 L MCV 89.5 MCH 30.3 MCHC 33.8 RDW 17.0 H Plt Count 134 MPV 8.8 Neut % (Auto) 83.2 H Lymph % (Auto) 7.0 L [place] % (Auto) 6.8 Eos % (Auto) 2.5 Baso % (Auto) 0.5 Neut # (Auto) 7.7 H Lymph # (Auto) 0.6 L [place] # (Auto) 0.6 Eos # (Auto) 0.2 Baso # (Auto) 0.0 Neutrophils % (Manual) 82 H Lymphocytes % (Manual) 11 L Monocytes % (Manual) 6 Eosinophils % (Manual) 1 Platelet Estimate Normal Polychromasia Slight Poikilocytosis (manual Slight Anisocytosis (manual) Slight Ovalocytes Slight PT 10.8 INR 1.0 APTT 31 pO2 VBG pH VBG pCO2 VBG HCO3 VBG Total CO2 VBG O2 Sat (Calc) VBG Base Excess VBG Potassium Glucose Lactate Sodium 144 Potassium 3.7 Chloride 103 Carbon Dioxide 26 Anion Gap 18 BUN 50 H Creatinine 5.5 H Est GFR ( Amer) 13 Est GFR (Non-Af Amer) 11 POC Glucose (mg/dL) Random Glucose 192 H Calcium 8.7 Total Bilirubin 0.8 AST 54 ALT 109 H D Alkaline Phosphatase 69 Troponin I 0.2290 H* NT-Pro-B Natriuret Pep 2080 H Total Protein 6.7 Albumin 4.0 Globulin 2.7 Albumin/Globulin Ratio 1.5 Venous Blood Potassium Urine Color Urine Clarity Urine pH Ur Specific [place] Urine Protein Urine Glucose (UA) Urine Ketones Urine Blood Urine Nitrate Urine Bilirubin Urine Urobilinogen Ur Leukocyte Esterase Urine WBC (Auto) Ur Squamous Epith Cells Blood Type Antibody Screen 12/12/17 12/12/17 12/12/17 12:05 15:11 15:32 WBC RBC Hgb Hct MCV MCH MCHC RDW Plt Count MPV Neut % (Auto) Lymph % (Auto) [place] % (Auto) Eos % (Auto) Baso % (Auto) Neut # (Auto) Lymph # (Auto) [place] # (Auto) Eos # (Auto) Baso # (Auto) Neutrophils % (Manual) Lymphocytes % (Manual) Monocytes % (Manual) Eosinophils % (Manual) Platelet Estimate Polychromasia Poikilocytosis (manual Anisocytosis (manual) Ovalocytes PT INR APTT pO2 21 L VBG pH 7.38 VBG pCO2 50 VBG HCO3 25.8 VBG Total CO2 31.1 H VBG O2 Sat (Calc) 61.5 VBG Base Excess 3.4 H VBG Potassium 3.4 L Glucose 239 H Lactate 1.5 Sodium 142.0 Potassium Chloride 109.0 H Carbon Dioxide Anion Gap BUN Creatinine Est GFR ( Amer) Est GFR (Non-Af Amer) POC Glucose (mg/dL) Random Glucose Calcium Total Bilirubin AST ALT Alkaline Phosphatase Troponin I NT-Pro-B Natriuret Pep Total Protein Albumin Globulin Albumin/Globulin Ratio Venous Blood Potassium 3.4 L Urine Color Yellow Urine Clarity Clear Urine pH 6.0 Ur Specific [place] 1.012 Urine Protein 3+ H Urine Glucose (UA) 2+ H Urine Ketones Negative Urine Blood Negative Urine Nitrate Negative Urine Bilirubin Negative Urine Urobilinogen Normal Ur Leukocyte Esterase Neg Urine WBC (Auto) 1 Ur Squamous Epith Cells < 1 Blood Type O POSITIVE Antibody Screen Negative 12/12/17 16:22 WBC RBC Hgb Hct MCV MCH MCHC RDW Plt Count MPV Neut % (Auto) Lymph % (Auto) [place] % (Auto) Eos % (Auto) Baso % (Auto) Neut # (Auto) Lymph # (Auto) [place] # (Auto) Eos # (Auto) Baso # (Auto) Neutrophils % (Manual) Lymphocytes % (Manual) Monocytes % (Manual) Eosinophils % (Manual) Platelet Estimate Polychromasia Poikilocytosis (manual Anisocytosis (manual) Ovalocytes PT INR APTT pO2 VBG pH VBG pCO2 VBG HCO3 VBG Total CO2 VBG O2 Sat (Calc) VBG Base Excess VBG Potassium Glucose Lactate Sodium Potassium Chloride Carbon Dioxide Anion Gap BUN Creatinine Est GFR ( Amer) Est GFR (Non-Af Amer) POC Glucose (mg/dL) 214 H Random Glucose Calcium Total Bilirubin AST ALT Alkaline Phosphatase Troponin I NT-Pro-B Natriuret Pep Total Protein Albumin Globulin Albumin/Globulin Ratio Venous Blood Potassium Urine Color Urine Clarity Urine pH Ur Specific [place] Urine Protein Urine Glucose (UA) Urine Ketones Urine Blood Urine Nitrate Urine Bilirubin Urine Urobilinogen Ur Leukocyte Esterase Urine WBC (Auto) Ur Squamous Epith Cells Blood Type Antibody Screen Assessment & Plan (1) Asthma Status: Chronic Comment: continue nebulizer treatment. Continue budesonide. BiPAP at night or as needed, Use BiPAP with warm humidified air. cardiology evaluation for elevated troponin. Continue hemodialysis. Followup ABG. Patient is high risk for surgery from pulmonary standpoint given his asthma and obstructive sleep apnea (2) Obstructive sleep apnea Status: Chronic (3) ESRD (end stage renal disease) on dialysis Status: Chronic
[2017-12-12] MEDS: (Novolin R) Insulin Human Regular 100 units/ml vial SC SCH ×2 (18:31→22:32)
[2017-12-12 19:12] LABS: ABG ALLEN TEST POS; ARTERIAL BLOOD GAS HCO3 28.7 mmol/L (21-28); ARTERIAL BLOOD GAS HEMOGLOBIN 11.5 g/dL (11.7-17.4); ARTERIAL BLOOD GAS O2 SAT 98.5 % (95-98); ARTERIAL BLOOD GAS PCO2 34 mm/Hg (35-45); ARTERIAL BLOOD GAS PH 7.52 (7.35-7.45); ARTERIAL BLOOD GAS PO2 76 mm/Hg (80-100); ARTERIAL BLOOD GAS TCO2 28.8 mmol/L (22-28)
[2017-12-12] MEDS: Albuterol-Ipratrop 3 mg / 0.5 (3 ml) UD INH SCH (20:20)
[2017-12-13] MEDS: Albuterol-Ipratrop 3 mg / 0.5 (3 ml) UD INH SCH ×4 (01:00→23:38)
[2017-12-13] MEDS: Budesonide 0.5 mg/2 ml Inhal Susp UD INH PRN (07:32)
[2017-12-13] MEDS: (Novolin R) Insulin Human Regular 100 units/ml vial SC SCH ×4 (08:11→21:03)
[2017-12-13 08:20] LABS: BASO % 0.1 % (0.0-2.0); HEMOGLOBIN 10.1 g/dL (12.0-18.0); LYMPH # 0.4 K/uL (1.0-4.3); LYMPH % 4.8 % (20.0-40.0); MEAN CELL VOLUME 87.9 fL (80.0-94.0); MEAN CORPUSCULAR HEMOGLOBIN 30.4 pg (27.0-31.0); MEAN CORPUSCULAR HGB CONC 34.6 g/dL (33.0-37.0); MONO # 0.5 K/uL (0.0-0.8); MONO % 5.7 % (0.0-10.0); NEUT # 8.1 K/uL (1.8-7.0); NEUT % 89.4 % (50.0-75.0); PLATELET COUNT 141 K/uL (130-400); RBC 3.32 Mil/uL (4.40-5.90); RED CELL DISTRIBUTION WIDTH 16.9 % (11.5-14.5); WHITE BLOOD COUNT 9.1 K/uL (4.8-10.8)
[2017-12-13 08:36] LABS: ALB/GLOB RATIO 1.2 (1.0-2.1); ALBUMIN 3.8 g/dL (3.5-5.0); CALCIUM 8.3 mg/dl (8.6-10.4)
[2017-12-13] MEDS ORDERED: Bupivacaine HCl 0.5% PF (30 ml) Inj ONE (08:43)
[2017-12-13] MEDS ORDERED: ceFAZolin IV 2 gm in Dextrose 2 GM/50 ML BAG IVPB ONE (08:43)
[2017-12-13 08:45] LABS: LYMPHOCYTE 8 % (20-40); MONOCYTE 1 % (0-10); NEUTROPHIL 91 % (50-75); PLATELET ESTIMATE NORMAL (NORMAL); TOTAL CELLS COUNTED 100
[2017-12-13 08:46] LABS: ANISOCYTOSIS SLIGHT; HYPOCHROMIC SLIGHT; POLYCHROMIC SLIGHT
--- NOTE | 2017-12-13 08:48 | CP.PCM.PN ---
Objective - Vital Signs/Intake and Output Vital Signs (last 24 hours): Temp Pulse Resp BP Pulse Ox 97.1 F L 78 20 148/69 97 12/13/17 07:00 12/13/17 07:32 12/13/17 07:00 12/13/17 07:15 12/13/17 07:00 Intake and Output: 12/13/17 12/13/17 06:59 18:59 Intake Total 100 Balance 100 - Medications Medications: Current Medications Acetaminophen (Tylenol 325mg Tab) 650 mg PO Q6 PRN PRN Reason: Fever >100.4 F Albuterol/Ipratropium (Duoneb 3 Mg/0.5 Mg (3 Ml) Ud) 3 ml INH RQ6 [facility] Last Admin: 12/13/17 07:32 Dose: 3 ml Budesonide (Pulmicort Respules) 0.5 mg INH RQ12 PRN PRN Reason: Shortness of Breath Last Admin: 12/13/17 07:32 Dose: 0.5 mg Carvedilol (Coreg) 12.5 mg PO BID [facility] Last Admin: 12/13/17 07:15 Dose: 12.5 mg Hydralazine HCl (Apresoline) 100 mg PO Q8 [facility] Last Admin: 12/13/17 07:15 Dose: 100 mg Insulin Human Regular (Novolin R) 0 unit SC ACHS [facility] PRN Reason: Protocol Last Admin: 12/13/17 08:11 Dose: Not Given Montelukast Sodium (Singulair) 10 mg PO HS [facility] Last Admin: 12/12/17 22:54 Dose: 10 mg Pantoprazole Sodium (Protonix Ec Tab) 40 mg PO DAILY [facility] Sevelamer Carbonate (Renvela) 800 mg PO TIDCC [facility] Last Admin: 12/13/17 08:15 Dose: Not Given - Labs Labs: 12/13/17 08:07 12/13/17 08:07 PT 10.8 SECONDS (9.7-12.2) 12/12/17 11:49 INR 1.0 12/12/17 11:49 APTT 31 SECONDS (21-34) 12/12/17 11:49
--- NOTE | 2017-12-13 09:04 | CP.PCM.PN ---
Subjective - Date & Time of Evaluation Date of Evaluation: 12/13/17 Time of Evaluation: 09:03 - Subjective Subjective: pt is seen and examined in holding area, no complaints, anxious follow up consult is dictated #[id number] Objective - Vital Signs/Intake and Output Vital Signs (last 24 hours): Temp Pulse Resp BP Pulse Ox 97.1 F L 78 20 148/69 97 12/13/17 07:00 12/13/17 07:32 12/13/17 07:00 12/13/17 07:15 12/13/17 07:00 Intake and Output: 12/13/17 12/13/17 06:59 18:59 Intake Total 100 Balance 100 - Medications Medications: Current Medications Acetaminophen (Tylenol 325mg Tab) 650 mg PO Q6 PRN PRN Reason: Fever >100.4 F Albuterol/Ipratropium (Duoneb 3 Mg/0.5 Mg (3 Ml) Ud) 3 ml INH RQ6 [facility] Last Admin: 12/13/17 07:32 Dose: 3 ml Budesonide (Pulmicort Respules) 0.5 mg INH RQ12 PRN PRN Reason: Shortness of Breath Last Admin: 12/13/17 07:32 Dose: 0.5 mg Carvedilol (Coreg) 12.5 mg PO BID [facility] Last Admin: 12/13/17 07:15 Dose: 12.5 mg Hydralazine HCl (Apresoline) 100 mg PO Q8 [facility] Last Admin: 12/13/17 07:15 Dose: 100 mg Insulin Human Regular (Novolin R) 0 unit SC ACHS [facility] PRN Reason: Protocol Last Admin: 12/13/17 08:11 Dose: Not Given Montelukast Sodium (Singulair) 10 mg PO HS [facility] Last Admin: 12/12/17 22:54 Dose: 10 mg Pantoprazole Sodium (Protonix Ec Tab) 40 mg PO DAILY [facility] Sevelamer Carbonate (Renvela) 800 mg PO TIDCC [facility] Last Admin: 12/13/17 08:15 Dose: Not Given - Labs Labs: 12/13/17 08:07 12/13/17 08:07 PT 10.8 SECONDS (9.7-12.2) 12/12/17 11:49 INR 1.0 12/12/17 11:49 APTT 31 SECONDS (21-34) 12/12/17 11:49
[2017-12-13] MEDS: Pantoprazole 40 mg EC Tab PO SCH (09:12)
[2017-12-13] MEDS ORDERED: Propofol 10 mg/ml Inj (20 ML) ONE (09:38)
--- NOTE | 2017-12-13 09:51 | CON ---
DATE: 12/12/2017 RENAL CONSULTATION REQUESTED BY: Sharlnee Pedraza MD REASON FOR CONSULTATION: End-stage renal disease, continuation of the hemodialysis for possible nephrectomy . HISTORY OF PRESENT ILLNESS: Mr. Mehta is a 57-year-old obese [place] male with a past medical history significant for left renal mass, more than 4 cm; NIDDM; hypertension; hyperlipidemia; ESRD, on hemodialysis three times a week; status post AICD placement; obstructive sleep apnea; and CHF who was recently admitted to the hospital with cough, shortness of breath, and subsequently the patient signed out AMA and went to [facility] for similar complaint, and the patient was discharged from the emergency room and advised to go to the dialysis unit for hyperkalemia. The patient was dialyzed last week Wednesday and this week, Wednesday, Wednesday and Wednesday. Now, the patient was sent from the emergency room for optimization and for possible dialysis for nephrectomy tomorrow. The patient was presented to the emergency room with complaints of dyspnea on exertion which started yesterday and using inhalers. The patient was placed on BiPAP in the emergency room and scheduled for hemodialysis. Denies any chest pain or palpitation. Denies any nausea, vomiting, or diarrhea. Denies any fever or cough. The patient does complain of slight swelling over the left wrist and slight tenderness and redness present. PAST MEDICAL HISTORY: Significant for longstanding hypertension, type 2 diabetes, CHF with a poor LV function and ejection fraction about 20-25%, status post AICD placement, with a renal mass. PAST SURGICAL HISTORY: Status post AICD, status post Perm-A-Cath placement on the right internal jugular, and status post left upper extremity AV fistula. ALLERGIES: NO KNOWN DRUG ALLERGIES. SOCIAL HISTORY: Denies any smoking. Former alcohol use. No drug abuse. FAMILY HISTORY: Mother . Father living. REVIEW OF THE SYSTEMS: Significant for dyspnea on exertion and shortness of breath, redness and swelling of the left wrist dorsum. All other reviews of systems are reviewed and are negative. PHYSICAL EXAMINATION: VITAL SIGNS: As follows: His blood pressure in the initial one is 177/93 and at 2:15 p.m., his blood pressure 202/115, pulse 88, respirations about 20, temperature 99.1, and saturation of 97%. Height 5 feet 6 inches and weight is 282 pounds. GENERAL: Mr. Mehta is a 57-year-old obese middle-aged male, well built, well nourished, not in distress, on BiPAP, being dialyzed and UF goal is about 4.5 L. HEENT: Pupils are normal and reactive to light accommodation. Conjunctivae pink. Sclerae anicteric. Tongue is moist. Trachea is midline. LUNGS: Symmetric on both sides. Bilateral breath sounds present. Bilateral occasional basal crackles present. CVS: [place] at the fifth intercostal space, midclavicular line. S1, S2 audible. No murmur or gallop. ABDOMEN: Protuberant, soft, tympanic. No guarding. No rigidity. No hepatosplenomegaly. BATCH BLENDER: The patient is alert, awake, oriented x3. Nonfocal neuro examination. Cranial nerves II-XII grossly intact. Sensory and motor system is within normal limits. EXTREMITIES: No cyanosis, no clubbing, no edema. LABORATORY DATA: Include as follows as of 12/12/2017: WBC 9.2, hemoglobin 10.1, hematocrit is 29.8, platelets 134. PT 10.8, PTT 31. VBG on admission: The pH of 7.38, pCO2 of 50, bicarb of 25, and iron saturation 61.5. Sodium 144, potassium 3.7, chloride 103, CO2 of 26, BUN 50, creatinine 5.5, glucose 192, calcium 8.7. Total bili 0.8, AST 54, ALT 109, alkaline phosphatase 69. Troponin 0.229 and proBNP of 2080. Total protein is 6.7 and albumin is 4. Urinalysis: Yellow, clear, pH of 6, specific gravity 1.012, protein 3+, glucose 2+, ketones negative, blood negative, nitrites negative, bilirubin negative, urobilinogen normal, leukocyte esterase negative, wbc 1, epithelial cells less than 1. His post-dialysis ABG: The pH of 7.52, pCO2 of 34, pO2 of 76, bicarb is 28.7, saturation 98.5, and FiO2 of 21%. Chest x-ray as of 12/12/2017: No significant interval change noted since the prior study, cardiomegaly and mild pulmonary vascular congestion. CURRENT MEDICATIONS: Include hydralazine 100 mg p.o. every 8 hours, Coreg 12.5 mg p.o. b.i.d., DuoNeb inhaler, Novolin R per sliding scale, Protonix 40 mg daily, Pulmicort 0.5 mg inhaler every 12 hours, Renvela 800 mg p.o. t.i.d., Singulair 10 mg p.o. at bedtime, and Tylenol. In summary, Mr. Mehta is a 57-year-old obese middle-aged male with a history of hypertension, diabetes, hyperlipidemia, congestive heart failure, cardiomyopathy with ejection fraction of 20-25%, status post automatic implantable cardioverter-defibrillator placement, status post left forearm arteriovenous fistula placement, end-stage renal disease, on hemodialysis three times a week Wednesday, and Wednesday, noncompliance of fluids with a left renal mass more than 4 cm, scheduled for robotic surgery at 10 a.m. and the patient presented with dyspnea on exertion, shortness of breath, and possible optimization for surgery in a.m. 1. Uncontrolled hypertension. 2. Mild congestive heart failure. 3. End-stage renal disease. 4. Diabetes. 5. Left renal mass. The patient was dialyzed this afternoon for 4 hours and UF about 4.5 L. The patient tolerated very well and continued all his current medications. Continue hydralazine. Continue Coreg. We will follow with you and thank you for allowing me to participate in your patient's care. Restrict fluids to 1 liter per day and also low sodium, low potassium diet. Talya Vogel MD
[2017-12-13] MEDS ORDERED: Neostigmine Methylsulfate 3mg/3ml Syringe IV ONE (10:40)
[2017-12-13] MEDS ORDERED: Succinylcholine Chloride 20 mg/ml Syr (5 ml) IV ONE (10:40)
--- NOTE | 2017-12-13 11:04 | CP.PCM.CON ---
<[place] - Last Filed: 12/13/17 12:49> History of Present Illness - History of Present Illness History of Present Illness: Critical Care Consult Note This is a 57 year old male with PMHx of renal cell cancer, NIDDM, HLD, HTN, CHF with pacemaker placement, ESRD on HD MWF (L AVF), and SHYANN who is admitted for observation in the ICU s/p left robot-assisted radical Nephrectomy with Dr. Beth Bartlett 12/13/17. Denied fever, chills, headache, chest pain, SOB, n/v/d/c, or urinary symptoms. PMH: as above PSH: Left arm radio-cephalic AV Fistula, Dialysis catheter insertion, Appendectomy, Pacemaker placement Allergies: NKDA Social hx: Denies smoking. Former alcohol drinker. Denies drug use. Fully mobile w/o assistnace. Does not work; on disability due to his asthma. FH: Mother- - [place]; Father- living- no medical issues PMD: Dr.Merwin Brown Past Patient History - Infectious Disease Hx of Infectious Diseases: None - Tetanus Immunizations Tetanus Immunization: Unknown - Past Medical History & Family History Past Medical History?: Yes - Past Social History Smoking Status: Never Smoked - CARDIAC Hx Congestive Heart Failure: Yes Hx Hypertension: Yes Hx Pacemaker: Yes - PULMONARY Hx Asthma: Yes Hx Pneumonia: Yes - NEUROLOGICAL Hx Neurological Disorder: No - HEENT Hx HEENT Problems: No - RENAL Hx Chronic Kidney Disease: Yes - ENDOCRINE/METABOLIC Hx Diabetes Mellitus Type 2: Yes - HEMATOLOGICAL/ONCOLOGICAL Hx Blood Disorders: No - INTEGUMENTARY Hx Dermatological Problems: No - MUSCULOSKELETAL/RHEUMATOLOGICAL Hx Falls: No Hx Herniated Disk: Yes - GASTROINTESTINAL Hx Gastrointestinal Disorders: No - GENITOURINARY/GYNECOLOGICAL Hx Genitourinary Disorders: No - PSYCHIATRIC Hx Substance Use: No - SURGICAL HISTORY Hx Appendectomy: Yes (1982) - ANESTHESIA Hx Anesthesia Reactions: No Meds Allergies/Adverse Reactions: Allergies Allergy/AdvReac Type Severity Reaction Status Date / Time No Known Allergies Allergy Verified 12/12/17 11:16 - Medications Medications: Current Medications Acetaminophen (Tylenol 325mg Tab) 650 mg PO Q6 PRN PRN Reason: Fever >100.4 F Albuterol/Ipratropium (Duoneb 3 Mg/0.5 Mg (3 Ml) Ud) 3 ml INH RQ6 [facility] Last Admin: 12/13/17 07:32 Dose: 3 ml Budesonide (Pulmicort Respules) 0.5 mg INH RQ12 PRN PRN Reason: Shortness of Breath Last Admin: 12/13/17 07:32 Dose: 0.5 mg Carvedilol (Coreg) 12.5 mg PO BID [facility] Last Admin: 12/13/17 09:11 Dose: Not Given Hydralazine HCl (Apresoline) 100 mg PO Q8 [facility] Last Admin: 12/13/17 07:15 Dose: 100 mg Insulin Human Regular (Novolin R) 0 unit SC ACHS [facility] PRN Reason: Protocol Last Admin: 12/13/17 08:11 Dose: Not Given Montelukast Sodium (Singulair) 10 mg PO HS [facility] Last Admin: 12/12/17 22:54 Dose: 10 mg Pantoprazole Sodium (Protonix Ec Tab) 40 mg PO DAILY [facility] Last Admin: 12/13/17 09:12 Dose: Not Given Sevelamer Carbonate (Renvela) 800 mg PO TIDCC [facility] Last Admin: 12/13/17 08:15 Dose: Not Given Physical Exam - Constitutional Appears: No Acute Distress - Head Exam Head Exam: ATRAUMATIC, NORMAL INSPECTION - Eye Exam Eye Exam: EOMI, Normal appearance, PERRL - ENT Exam ENT Exam: Mucous Membranes Moist - Respiratory Exam Respiratory Exam: Clear to Auscultation Bilateral. absent: Decreased Breath Sounds - Cardiovascular Exam Cardiovascular Exam: REGULAR RHYTHM Additional comments: AICD/ Pacemaker in place Right perm-a-cath - GI/Abdominal Exam GI & Abdominal Exam: Normal Bowel Sounds, Soft. absent: Distended, Tenderness - Extremities Exam Extremities exam: Positive for: normal inspection, pedal pulses present. Negative for: pedal edema, tenderness Additional comments: LEFT AVF - Neurological Exam Neurological exam: Alert, CN II-XII Intact, Oriented x3 - Psychiatric Exam Psychiatric exam: Normal Affect, Normal Mood - Skin Skin Exam: Dry, Intact, Normal Color, Warm Results - Vital Signs Recent Vital Signs: Last Vital Signs Temp 97.1 F L 12/13/17 07:00 Pulse 78 12/13/17 07:32 Resp 20 12/13/17 07:00 BP 148/69 12/13/17 07:15 Pulse Ox 97 12/13/17 07:00 - Labs Result Diagrams: 12/13/17 08:07 12/13/17 08:07 Labs: Laboratory Results - last 24 hr 12/12/17 12/12/17 12/12/17 11:49 11:49 11:49 WBC 9.2 RBC 3.33 L Hgb 10.1 L Hct 29.8 L MCV 89.5 MCH 30.3 MCHC 33.8 RDW 17.0 H Plt Count 134 MPV 8.8 Neut % (Auto) 83.2 H Lymph % (Auto) 7.0 L [place] % (Auto) 6.8 Eos % (Auto) 2.5 Baso % (Auto) 0.5 Neut # (Auto) 7.7 H Lymph # (Auto) 0.6 L [place] # (Auto) 0.6 Eos # (Auto) 0.2 Baso # (Auto) 0.0 Neutrophils % (Manual) 82 H Lymphocytes % (Manual) 11 L Monocytes % (Manual) 6 Eosinophils % (Manual) 1 Platelet Estimate Normal Polychromasia Slight Hypochromasia (manual) Poikilocytosis (manual Slight Anisocytosis (manual) Slight Ovalocytes Slight PT 10.8 INR 1.0 APTT 31 Puncture Site pCO2 pO2 HCO3 ABG pH ABG Total CO2 ABG O2 Saturation ABG Base Excess ABG Hemoglobin ABG Carboxyhemoglobin POC ABG HHb (Measured) ABG Methemoglobin Ananda Test VBG pH VBG pCO2 VBG HCO3 VBG Total CO2 VBG O2 Sat (Calc) VBG Base Excess VBG Potassium A-a O2 Difference Respiratory Index Hgb O2 Saturation Glucose Lactate FiO2 Sodium 144 Potassium 3.7 Chloride 103 Carbon Dioxide 26 Anion Gap 18 BUN 50 H Creatinine 5.5 H Est GFR ( Amer) 13 Est GFR (Non-Af Amer) 11 POC Glucose (mg/dL) Random Glucose 192 H Calcium 8.7 Total Bilirubin 0.8 AST 54 ALT 109 H D Alkaline Phosphatase 69 Troponin I 0.2290 H* NT-Pro-B Natriuret Pep 2080 H Total Protein 6.7 Albumin 4.0 Globulin 2.7 Albumin/Globulin Ratio 1.5 Venous Blood Potassium Urine Color Urine Clarity Urine pH Ur Specific [place] Urine Protein Urine Glucose (UA) Urine Ketones Urine Blood Urine Nitrate Urine Bilirubin Urine Urobilinogen Ur Leukocyte Esterase Urine WBC (Auto) Ur Squamous Epith Cells Blood Type Antibody Screen 12/12/17 12/12/17 12/12/17 12:05 15:11 15:32 WBC RBC Hgb Hct MCV MCH MCHC RDW Plt Count MPV Neut % (Auto) Lymph % (Auto) [place] % (Auto) Eos % (Auto) Baso % (Auto) Neut # (Auto) Lymph # (Auto) [place] # (Auto) Eos # (Auto) Baso # (Auto) Neutrophils % (Manual) Lymphocytes % (Manual) Monocytes % (Manual) Eosinophils % (Manual) Platelet Estimate Polychromasia Hypochromasia (manual) Poikilocytosis (manual Anisocytosis (manual) Ovalocytes PT INR APTT Puncture Site pCO2 pO2 21 L HCO3 ABG pH ABG Total CO2 ABG O2 Saturation ABG Base Excess ABG Hemoglobin ABG Carboxyhemoglobin POC ABG HHb (Measured) ABG Methemoglobin Ananda Test VBG pH 7.38 VBG pCO2 50 VBG HCO3 25.8 VBG Total CO2 31.1 H VBG O2 Sat (Calc) 61.5 VBG Base Excess 3.4 H VBG Potassium 3.4 L A-a O2 Difference Respiratory Index Hgb O2 Saturation Glucose 239 H Lactate 1.5 FiO2 Sodium 142.0 Potassium Chloride 109.0 H Carbon Dioxide Anion Gap BUN Creatinine Est GFR ( Amer) Est GFR (Non-Af Amer) POC Glucose (mg/dL) Random Glucose Calcium Total Bilirubin AST ALT Alkaline Phosphatase Troponin I NT-Pro-B Natriuret Pep Total Protein Albumin Globulin Albumin/Globulin Ratio Venous Blood Potassium 3.4 L Urine Color Yellow Urine Clarity Clear Urine pH 6.0 Ur Specific [place] 1.012 Urine Protein 3+ H Urine Glucose (UA) 2+ H Urine Ketones Negative Urine Blood Negative Urine Nitrate Negative Urine Bilirubin Negative Urine Urobilinogen Normal Ur Leukocyte Esterase Neg Urine WBC (Auto) 1 Ur Squamous Epith Cells < 1 Blood Type O POSITIVE Antibody Screen Negative 12/12/17 12/12/17 12/12/17 16:22 19:08 21:56 WBC RBC Hgb Hct MCV MCH MCHC RDW Plt Count MPV Neut % (Auto) Lymph % (Auto) [place] % (Auto) Eos % (Auto) Baso % (Auto) Neut # (Auto) Lymph # (Auto) [place] # (Auto) Eos # (Auto) Baso # (Auto) Neutrophils % (Manual) Lymphocytes % (Manual) Monocytes % (Manual) Eosinophils % (Manual) Platelet Estimate Polychromasia Hypochromasia (manual) Poikilocytosis (manual Anisocytosis (manual) Ovalocytes PT INR APTT Puncture Site Lra pCO2 34 L pO2 76 L HCO3 28.7 H ABG pH 7.52 H ABG Total CO2 28.8 H ABG O2 Saturation 98.5 H ABG Base Excess 4.9 H ABG Hemoglobin 11.5 L ABG Carboxyhemoglobin 2.4 H POC ABG HHb (Measured) 1.4 ABG Methemoglobin 1.8 Ananda Test Pos VBG pH VBG pCO2 VBG HCO3 VBG Total CO2 VBG O2 Sat (Calc) VBG Base Excess VBG Potassium A-a O2 Difference 31.0 Respiratory Index 0.4 Hgb O2 Saturation 94.4 L Glucose Lactate FiO2 21.0 Sodium Potassium Chloride Carbon Dioxide Anion Gap BUN Creatinine Est GFR ( Amer) Est GFR (Non-Af Amer) POC Glucose (mg/dL) 214 H 330 H Random Glucose Calcium Total Bilirubin AST ALT Alkaline Phosphatase Troponin I NT-Pro-B Natriuret Pep Total Protein Albumin Globulin Albumin/Globulin Ratio Venous Blood Potassium Urine Color Urine Clarity Urine pH Ur Specific [place] Urine Protein Urine Glucose (UA) Urine Ketones Urine Blood Urine Nitrate Urine Bilirubin Urine Urobilinogen Ur Leukocyte Esterase Urine WBC (Auto) Ur Squamous Epith Cells Blood Type Antibody Screen 12/13/17 12/13/17 12/13/17 06:14 08:07 08:07 WBC 9.1 RBC 3.32 L Hgb 10.1 L Hct 29.2 L MCV 87.9 MCH 30.4 MCHC 34.6 RDW 16.9 H Plt Count 141 MPV 9.0 Neut % (Auto) 89.4 H Lymph % (Auto) 4.8 L [place] % (Auto) 5.7 Eos % (Auto) 0.0 Baso % (Auto) 0.1 Neut # (Auto) 8.1 H Lymph # (Auto) 0.4 L [place] # (Auto) 0.5 Eos # (Auto) 0.0 Baso # (Auto) 0.0 Neutrophils % (Manual) 91 H Lymphocytes % (Manual) 8 L Monocytes % (Manual) 1 Eosinophils % (Manual) Platelet Estimate Normal Polychromasia Slight Hypochromasia (manual) Slight Poikilocytosis (manual Anisocytosis (manual) Slight Ovalocytes PT INR APTT Puncture Site pCO2 pO2 HCO3 ABG pH ABG Total CO2 ABG O2 Saturation ABG Base Excess ABG Hemoglobin ABG Carboxyhemoglobin POC ABG HHb (Measured) ABG Methemoglobin Ananda Test VBG pH VBG pCO2 VBG HCO3 VBG Total CO2 VBG O2 Sat (Calc) VBG Base Excess VBG Potassium A-a O2 Difference Respiratory Index Hgb O2 Saturation Glucose Lactate FiO2 Sodium 135 Potassium 4.2 Chloride 93 L Carbon Dioxide 28 Anion Gap 19 BUN 42 H Creatinine 4.7 H Est GFR ( Amer) 16 Est GFR (Non-Af Amer) 13 POC Glucose (mg/dL) 265 H Random Glucose 257 H Calcium 8.3 L Total Bilirubin 0.9 AST 31 ALT 88 H Alkaline Phosphatase 65 Troponin I NT-Pro-B Natriuret Pep Total Protein 7.0 Albumin 3.8 Globulin 3.2 Albumin/Globulin Ratio 1.2 Venous Blood Potassium Urine Color Urine Clarity Urine pH Ur Specific [place] Urine Protein Urine Glucose (UA) Urine Ketones Urine Blood Urine Nitrate Urine Bilirubin Urine Urobilinogen Ur Leukocyte Esterase Urine WBC (Auto) Ur Squamous Epith Cells Blood Type Antibody Screen 12/13/17 08:07 WBC RBC Hgb Hct MCV MCH MCHC RDW Plt Count MPV Neut % (Auto) Lymph % (Auto) [place] % (Auto) Eos % (Auto) Baso % (Auto) Neut # (Auto) Lymph # (Auto) [place] # (Auto) Eos # (Auto) Baso # (Auto) Neutrophils % (Manual) Lymphocytes % (Manual) Monocytes % (Manual) Eosinophils % (Manual) Platelet Estimate Polychromasia Hypochromasia (manual) Poikilocytosis (manual Anisocytosis (manual) Ovalocytes PT INR APTT Puncture Site pCO2 pO2 HCO3 ABG pH ABG Total CO2 ABG O2 Saturation ABG Base Excess ABG Hemoglobin ABG Carboxyhemoglobin POC ABG HHb (Measured) ABG Methemoglobin Ananda Test VBG pH VBG pCO2 VBG HCO3 VBG Total CO2 VBG O2 Sat (Calc) VBG Base Excess VBG Potassium A-a O2 Difference Respiratory Index Hgb O2 Saturation Glucose Lactate FiO2 Sodium Potassium Chloride Carbon Dioxide Anion Gap BUN Creatinine Est GFR ( Amer) Est GFR (Non-Af Amer) POC Glucose (mg/dL) Random Glucose Calcium Total Bilirubin AST ALT Alkaline Phosphatase Troponin I NT-Pro-B Natriuret Pep Total Protein Albumin Globulin Albumin/Globulin Ratio Venous Blood Potassium Urine Color Urine Clarity Urine pH Ur Specific [place] Urine Protein Urine Glucose (UA) Urine Ketones Urine Blood Urine Nitrate Urine Bilirubin Urine Urobilinogen Ur Leukocyte Esterase Urine WBC (Auto) Ur Squamous Epith Cells Blood Type O POSITIVE Antibody Screen Negative Assessment & Plan - Assessment and Plan (Free Text) Assessment: This is a 57 year old male with PMHx of renal cell cancer, NIDDM, HLD, HTN, CHF with pacemaker placement, ESRD on HD MWF (L AVF), and SHYANN who is admitted for observation in the ICU s/p left robot-assisted radical Nephrectomy with Dr. Beth Bartlett 12/13/17. Plan: Neuro: GCS 15 Cardio: A: Cardiomyopathy with PPM EF <30% - Resumed Aspirin 81mg PO daily, Coreg 12.5 mg PO BID, Crestor 10mg POqHS, Hydralazine 100mg PO Q8H A: HTN - Resumed Aspirin 81mg PO daily, Coreg 12.5 mg PO BID, Crestor 10mg POqHS, Hydralazine 100mg PO Q8H A: SHYANN - CPAP at night - Recommend sleep study outpatient to qualify for CPAP A: Thoracic Aneursym - CT Chest: Mild ascending thoracic aneurysm 4.3 cm greatest dimension terminating at the anterior arch. Will need to follow up in 6-12 months Pulm: A: Asthma - Duonebs every 4 hours PRN, Singulair 10mg PO qHS Renal: A: ERSD on HD ??T//Wed Nephrology consult (Dr. Boswell) - Resumed Renvela 800mg PO TIDCC, Procit with dialysis A: Renal Cell Carcinoma of Left Kidney S/P left robot-assisted radical Nephrectomy - Will continue to monitor in the ICU Heme/Onc: A: Anemia of Chronic Disease - Continue to monitor - Procrit during dialysis days Prophylaxis - Protonix - VTE c/i s/p surgery - will resume during scheduled dialysis DW Quita Shi DO, PGY-1 <Alexis Marshall - Last Filed: 12/13/17 19:15> Meds - Medications Medications: Current Medications Acetaminophen (Tylenol 325mg Tab) 650 mg PO Q6 PRN PRN Reason: Fever >100.4 F Albuterol/Ipratropium (Duoneb 3 Mg/0.5 Mg (3 Ml) Ud) 3 ml INH RQ6 [facility] Last Admin: 12/13/17 07:32 Dose: 3 ml Aspirin (Aspirin Chewable) 81 mg PO DAILY [facility] Budesonide (Pulmicort Respules) 0.5 mg INH RQ12 PRN PRN Reason: Shortness of Breath Last Admin: 12/13/17 07:32 Dose: 0.5 mg Carvedilol (Coreg) 12.5 mg PO BID [facility] Last Admin: 12/13/17 18:29 Dose: 12.5 mg Hydralazine HCl (Apresoline) 100 mg PO Q8 [facility] Last Admin: 12/13/17 15:17 Dose: Not Given Hydromorphone/Sodium Chloride (Dilaudid [employer] Specialist) 3.6 mg IV Q4H PRN; Protocol PRN Reason: Pain, severe (8-10) Last Admin: 12/13/17 12:57 Dose: 3.6 mg Cefazolin Sodium/Dextrose (Ancef Iv 1 Gm Duplex) 1 gm in 50 mls @ 100 mls/hr IVPB Q8H [facility] PRN Reason: Protocol Last Admin: 12/13/17 14:07 Dose: Not Given Dextrose/Sodium Chloride (Dextrose 5%/0.45% Ns 1000 Ml) 1,000 mls @ 60 mls/hr IV .[id number] [facility] Last Admin: 12/13/17 13:35 Dose: 60 mls/hr Insulin Human Regular (Novolin R) 0 unit SC ACHS [facility] PRN Reason: Protocol Last Admin: 12/13/17 17:23 Dose: 3 units Montelukast Sodium (Singulair) 10 mg PO HS [facility] Last Admin: 12/12/17 22:54 Dose: 10 mg Morphine Sulfate (Morphine) 1 mg IVP Q4 PRN PRN Reason: Pain, severe (8-10) Pantoprazole Sodium (Protonix Ec Tab) 40 mg PO DAILY [facility] Last Admin: 12/13/17 09:12 Dose: Not Given Rosuvastatin Calcium (Crestor) 10 mg PO HS [facility] Sevelamer Carbonate (Renvela) 800 mg PO TIDCC [facility] Last Admin: 12/13/17 18:29 Dose: 800 mg Results - Vital Signs Recent Vital Signs: Last Vital Signs Temp 97.7 F 12/13/17 16:00 Pulse 72 12/13/17 13:15 Resp 11 L 12/13/17 13:15 BP 154/67 H 12/13/17 18:29 Pulse Ox 99 12/13/17 13:15 - Labs Result Diagrams: 12/13/17 18:36 12/13/17 08:07 Labs: Laboratory Results - last 24 hr 12/12/17 12/13/17 12/13/17 21:56 06:14 08:07 WBC 9.1 RBC 3.32 L Hgb 10.1 L Hct 29.2 L MCV 87.9 MCH 30.4 MCHC 34.6 RDW 16.9 H Plt Count 141 MPV 9.0 Neut % (Auto) 89.4 H Lymph % (Auto) 4.8 L [place] % (Auto) 5.7 Eos % (Auto) 0.0 Baso % (Auto) 0.1 Neut # (Auto) 8.1 H Lymph # (Auto) 0.4 L [place] # (Auto) 0.5 Eos # (Auto) 0.0 Baso # (Auto) 0.0 Neutrophils % (Manual) 91 H Lymphocytes % (Manual) 8 L Monocytes % (Manual) 1 Platelet Estimate Normal Polychromasia Slight Hypochromasia (manual) Slight Anisocytosis (manual) Slight Sodium Potassium Chloride Carbon Dioxide Anion Gap BUN Creatinine Est GFR ( Amer) Est GFR (Non-Af Amer) POC Glucose (mg/dL) 330 H 265 H Random Glucose Calcium Total Bilirubin AST ALT Alkaline Phosphatase Total Protein Albumin Globulin Albumin/Globulin Ratio Blood Type Antibody Screen 12/13/17 12/13/17 12/13/17 08:07 08:07 12:07 WBC RBC Hgb Hct MCV MCH MCHC RDW Plt Count MPV Neut % (Auto) Lymph % (Auto) [place] % (Auto) Eos % (Auto) Baso % (Auto) Neut # (Auto) Lymph # (Auto) [place] # (Auto) Eos # (Auto) Baso # (Auto) Neutrophils % (Manual) Lymphocytes % (Manual) Monocytes % (Manual) Platelet Estimate Polychromasia Hypochromasia (manual) Anisocytosis (manual) Sodium 135 Potassium 4.2 Chloride 93 L Carbon Dioxide 28 Anion Gap 19 BUN 42 H Creatinine 4.7 H Est GFR ( Amer) 16 Est GFR (Non-Af Amer) 13 POC Glucose (mg/dL) 366 H Random Glucose 257 H Calcium 8.3 L Total Bilirubin 0.9 AST 31 ALT 88 H Alkaline Phosphatase 65 Total Protein 7.0 Albumin 3.8 Globulin 3.2 Albumin/Globulin Ratio 1.2 Blood Type O POSITIVE Antibody Screen Negative 12/13/17 12/13/17 17:05 18:36 WBC 11.2 H RBC 3.20 L Hgb 9.6 L Hct 28.6 L MCV 89.4 MCH 30.0 MCHC 33.6 RDW 17.3 H Plt Count 133 MPV 8.8 Neut % (Auto) Lymph % (Auto) [place] % (Auto) Eos % (Auto) Baso % (Auto) Neut # (Auto) Lymph # (Auto) [place] # (Auto) Eos # (Auto) Baso # (Auto) Neutrophils % (Manual) Lymphocytes % (Manual) Monocytes % (Manual) Platelet Estimate Polychromasia Hypochromasia (manual) Anisocytosis (manual) Sodium Potassium Chloride Carbon Dioxide Anion Gap BUN Creatinine Est GFR ( Amer) Est GFR (Non-Af Amer) POC Glucose (mg/dL) 292 H Random Glucose Calcium Total Bilirubin AST ALT Alkaline Phosphatase Total Protein Albumin Globulin Albumin/Globulin Ratio Blood Type Antibody Screen Attending/Attestation - Attestation I have personally seen and examined this patient.: Yes I have fully participated in the care of the patient.: Yes I have reviewed all pertinent clinical information: Yes Notes (Text): 12/13/17 19:15 Patient examined during the rounds. Comfortable with the BiPAP. Mild expiratory distress noted. Lactate is reviewed in Elevation noted. Most likely related to heart failure as well as acute non-ST elevation [place]. And associate with the COPD exacerbation. Improving at this time. Continue the current treatment.
--- NOTE | 2017-12-13 11:11 | CP.PCM.CON ---
Past Patient History - Infectious Disease Hx of Infectious Diseases: None - Tetanus Immunizations Tetanus Immunization: Unknown - Past Medical History & Family History Past Medical History?: Yes - Past Social History Smoking Status: Never Smoked - CARDIAC Hx Congestive Heart Failure: Yes Hx Hypertension: Yes Hx Pacemaker: Yes - PULMONARY Hx Asthma: Yes Hx Pneumonia: Yes - NEUROLOGICAL Hx Neurological Disorder: No - HEENT Hx HEENT Problems: No - RENAL Hx Chronic Kidney Disease: Yes - ENDOCRINE/METABOLIC Hx Diabetes Mellitus Type 2: Yes - HEMATOLOGICAL/ONCOLOGICAL Hx Blood Disorders: No - INTEGUMENTARY Hx Dermatological Problems: No - MUSCULOSKELETAL/RHEUMATOLOGICAL Hx Falls: No Hx Herniated Disk: Yes - GASTROINTESTINAL Hx Gastrointestinal Disorders: No - GENITOURINARY/GYNECOLOGICAL Hx Genitourinary Disorders: No - PSYCHIATRIC Hx Substance Use: No - SURGICAL HISTORY Hx Appendectomy: Yes (1982) - ANESTHESIA Hx Anesthesia Reactions: No Meds Allergies/Adverse Reactions: Allergies Allergy/AdvReac Type Severity Reaction Status Date / Time No Known Allergies Allergy Verified 12/12/17 11:16 - Medications Medications: Current Medications Acetaminophen (Tylenol 325mg Tab) 650 mg PO Q6 PRN PRN Reason: Fever >100.4 F Albuterol/Ipratropium (Duoneb 3 Mg/0.5 Mg (3 Ml) Ud) 3 ml INH RQ6 [facility] Last Admin: 12/13/17 07:32 Dose: 3 ml Budesonide (Pulmicort Respules) 0.5 mg INH RQ12 PRN PRN Reason: Shortness of Breath Last Admin: 12/13/17 07:32 Dose: 0.5 mg Carvedilol (Coreg) 12.5 mg PO BID [facility] Last Admin: 12/13/17 09:11 Dose: Not Given Hydralazine HCl (Apresoline) 100 mg PO Q8 [facility] Last Admin: 12/13/17 07:15 Dose: 100 mg Insulin Human Regular (Novolin R) 0 unit SC ACHS [facility] PRN Reason: Protocol Last Admin: 12/13/17 08:11 Dose: Not Given Montelukast Sodium (Singulair) 10 mg PO HS [facility] Last Admin: 12/12/17 22:54 Dose: 10 mg Pantoprazole Sodium (Protonix Ec Tab) 40 mg PO DAILY [facility] Last Admin: 12/13/17 09:12 Dose: Not Given Sevelamer Carbonate (Renvela) 800 mg PO TIDCC [facility] Last Admin: 12/13/17 08:15 Dose: Not Given Results - Vital Signs Recent Vital Signs: Last Vital Signs Temp 97.1 F L 12/13/17 07:00 Pulse 78 12/13/17 07:32 Resp 20 12/13/17 07:00 BP 148/69 12/13/17 07:15 Pulse Ox 97 12/13/17 07:00 - Labs Result Diagrams: 12/13/17 08:07 12/13/17 08:07 Labs: Laboratory Results - last 24 hr 12/12/17 12/12/17 12/12/17 11:49 11:49 11:49 WBC 9.2 RBC 3.33 L Hgb 10.1 L Hct 29.8 L MCV 89.5 MCH 30.3 MCHC 33.8 RDW 17.0 H Plt Count 134 MPV 8.8 Neut % (Auto) 83.2 H Lymph % (Auto) 7.0 L Mobile % (Auto) 6.8 Eos % (Auto) 2.5 Baso % (Auto) 0.5 Neut # (Auto) 7.7 H Lymph # (Auto) 0.6 L Mobile # (Auto) 0.6 Eos # (Auto) 0.2 Baso # (Auto) 0.0 Neutrophils % (Manual) 82 H Lymphocytes % (Manual) 11 L Monocytes % (Manual) 6 Eosinophils % (Manual) 1 Platelet Estimate Normal Polychromasia Slight Hypochromasia (manual) Poikilocytosis (manual Slight Anisocytosis (manual) Slight Ovalocytes Slight PT 10.8 INR 1.0 APTT 31 Puncture Site pCO2 pO2 HCO3 ABG pH ABG Total CO2 ABG O2 Saturation ABG Base Excess ABG Hemoglobin ABG Carboxyhemoglobin POC ABG HHb (Measured) ABG Methemoglobin Ananda Test VBG pH VBG pCO2 VBG HCO3 VBG Total CO2 VBG O2 Sat (Calc) VBG Base Excess VBG Potassium A-a O2 Difference Respiratory Index Hgb O2 Saturation Glucose Lactate FiO2 Sodium 144 Potassium 3.7 Chloride 103 Carbon Dioxide 26 Anion Gap 18 BUN 50 H Creatinine 5.5 H Est GFR ( Amer) 13 Est GFR (Non-Af Amer) 11 POC Glucose (mg/dL) Random Glucose 192 H Calcium 8.7 Total Bilirubin 0.8 AST 54 ALT 109 H D Alkaline Phosphatase 69 Troponin I 0.2290 H* NT-Pro-B Natriuret Pep 2080 H Total Protein 6.7 Albumin 4.0 Globulin 2.7 Albumin/Globulin Ratio 1.5 Venous Blood Potassium Urine Color Urine Clarity Urine pH Ur Specific [place] Urine Protein Urine Glucose (UA) Urine Ketones Urine Blood Urine Nitrate Urine Bilirubin Urine Urobilinogen Ur Leukocyte Esterase Urine WBC (Auto) Ur Squamous Epith Cells Blood Type Antibody Screen 12/12/17 12/12/17 12/12/17 12:05 15:11 15:32 WBC RBC Hgb Hct MCV MCH MCHC RDW Plt Count MPV Neut % (Auto) Lymph % (Auto) Mobile % (Auto) Eos % (Auto) Baso % (Auto) Neut # (Auto) Lymph # (Auto) Mobile # (Auto) Eos # (Auto) Baso # (Auto) Neutrophils % (Manual) Lymphocytes % (Manual) Monocytes % (Manual) Eosinophils % (Manual) Platelet Estimate Polychromasia Hypochromasia (manual) Poikilocytosis (manual Anisocytosis (manual) Ovalocytes PT INR APTT Puncture Site pCO2 pO2 21 L HCO3 ABG pH ABG Total CO2 ABG O2 Saturation ABG Base Excess ABG Hemoglobin ABG Carboxyhemoglobin POC ABG HHb (Measured) ABG Methemoglobin Ananda Test VBG pH 7.38 VBG pCO2 50 VBG HCO3 25.8 VBG Total CO2 31.1 H VBG O2 Sat (Calc) 61.5 VBG Base Excess 3.4 H VBG Potassium 3.4 L A-a O2 Difference Respiratory Index Hgb O2 Saturation Glucose 239 H Lactate 1.5 FiO2 Sodium 142.0 Potassium Chloride 109.0 H Carbon Dioxide Anion Gap BUN Creatinine Est GFR ( Amer) Est GFR (Non-Af Amer) POC Glucose (mg/dL) Random Glucose Calcium Total Bilirubin AST ALT Alkaline Phosphatase Troponin I NT-Pro-B Natriuret Pep Total Protein Albumin Globulin Albumin/Globulin Ratio Venous Blood Potassium 3.4 L Urine Color Yellow Urine Clarity Clear Urine pH 6.0 Ur Specific [place] 1.012 Urine Protein 3+ H Urine Glucose (UA) 2+ H Urine Ketones Negative Urine Blood Negative Urine Nitrate Negative Urine Bilirubin Negative Urine Urobilinogen Normal Ur Leukocyte Esterase Neg Urine WBC (Auto) 1 Ur Squamous Epith Cells < 1 Blood Type O POSITIVE Antibody Screen Negative 12/12/17 12/12/17 12/12/17 16:22 19:08 21:56 WBC RBC Hgb Hct MCV MCH MCHC RDW Plt Count MPV Neut % (Auto) Lymph % (Auto) Mobile % (Auto) Eos % (Auto) Baso % (Auto) Neut # (Auto) Lymph # (Auto) Mobile # (Auto) Eos # (Auto) Baso # (Auto) Neutrophils % (Manual) Lymphocytes % (Manual) Monocytes % (Manual) Eosinophils % (Manual) Platelet Estimate Polychromasia Hypochromasia (manual) Poikilocytosis (manual Anisocytosis (manual) Ovalocytes PT INR APTT Puncture Site Lra pCO2 34 L pO2 76 L HCO3 28.7 H ABG pH 7.52 H ABG Total CO2 28.8 H ABG O2 Saturation 98.5 H ABG Base Excess 4.9 H ABG Hemoglobin 11.5 L ABG Carboxyhemoglobin 2.4 H POC ABG HHb (Measured) 1.4 ABG Methemoglobin 1.8 Ananda Test Pos VBG pH VBG pCO2 VBG HCO3 VBG Total CO2 VBG O2 Sat (Calc) VBG Base Excess VBG Potassium A-a O2 Difference 31.0 Respiratory Index 0.4 Hgb O2 Saturation 94.4 L Glucose Lactate FiO2 21.0 Sodium Potassium Chloride Carbon Dioxide Anion Gap BUN Creatinine Est GFR ( Amer) Est GFR (Non-Af Amer) POC Glucose (mg/dL) 214 H 330 H Random Glucose Calcium Total Bilirubin AST ALT Alkaline Phosphatase Troponin I NT-Pro-B Natriuret Pep Total Protein Albumin Globulin Albumin/Globulin Ratio Venous Blood Potassium Urine Color Urine Clarity Urine pH Ur Specific [place] Urine Protein Urine Glucose (UA) Urine Ketones Urine Blood Urine Nitrate Urine Bilirubin Urine Urobilinogen Ur Leukocyte Esterase Urine WBC (Auto) Ur Squamous Epith Cells Blood Type Antibody Screen 12/13/17 12/13/17 12/13/17 06:14 08:07 08:07 WBC 9.1 RBC 3.32 L Hgb 10.1 L Hct 29.2 L MCV 87.9 MCH 30.4 MCHC 34.6 RDW 16.9 H Plt Count 141 MPV 9.0 Neut % (Auto) 89.4 H Lymph % (Auto) 4.8 L Mobile % (Auto) 5.7 Eos % (Auto) 0.0 Baso % (Auto) 0.1 Neut # (Auto) 8.1 H Lymph # (Auto) 0.4 L Mobile # (Auto) 0.5 Eos # (Auto) 0.0 Baso # (Auto) 0.0 Neutrophils % (Manual) 91 H Lymphocytes % (Manual) 8 L Monocytes % (Manual) 1 Eosinophils % (Manual) Platelet Estimate Normal Polychromasia Slight Hypochromasia (manual) Slight Poikilocytosis (manual Anisocytosis (manual) Slight Ovalocytes PT INR APTT Puncture Site pCO2 pO2 HCO3 ABG pH ABG Total CO2 ABG O2 Saturation ABG Base Excess ABG Hemoglobin ABG Carboxyhemoglobin POC ABG HHb (Measured) ABG Methemoglobin Ananda Test VBG pH VBG pCO2 VBG HCO3 VBG Total CO2 VBG O2 Sat (Calc) VBG Base Excess VBG Potassium A-a O2 Difference Respiratory Index Hgb O2 Saturation Glucose Lactate FiO2 Sodium 135 Potassium 4.2 Chloride 93 L Carbon Dioxide 28 Anion Gap 19 BUN 42 H Creatinine 4.7 H Est GFR ( Amer) 16 Est GFR (Non-Af Amer) 13 POC Glucose (mg/dL) 265 H Random Glucose 257 H Calcium 8.3 L Total Bilirubin 0.9 AST 31 ALT 88 H Alkaline Phosphatase 65 Troponin I NT-Pro-B Natriuret Pep Total Protein 7.0 Albumin 3.8 Globulin 3.2 Albumin/Globulin Ratio 1.2 Venous Blood Potassium Urine Color Urine Clarity Urine pH Ur Specific [place] Urine Protein Urine Glucose (UA) Urine Ketones Urine Blood Urine Nitrate Urine Bilirubin Urine Urobilinogen Ur Leukocyte Esterase Urine WBC (Auto) Ur Squamous Epith Cells Blood Type Antibody Screen 12/13/17 08:07 WBC RBC Hgb Hct MCV MCH MCHC RDW Plt Count MPV Neut % (Auto) Lymph % (Auto) Mobile % (Auto) Eos % (Auto) Baso % (Auto) Neut # (Auto) Lymph # (Auto) Mobile # (Auto) Eos # (Auto) Baso # (Auto) Neutrophils % (Manual) Lymphocytes % (Manual) Monocytes % (Manual) Eosinophils % (Manual) Platelet Estimate Polychromasia Hypochromasia (manual) Poikilocytosis (manual Anisocytosis (manual) Ovalocytes PT INR APTT Puncture Site pCO2 pO2 HCO3 ABG pH ABG Total CO2 ABG O2 Saturation ABG Base Excess ABG Hemoglobin ABG Carboxyhemoglobin POC ABG HHb (Measured) ABG Methemoglobin Ananda Test VBG pH VBG pCO2 VBG HCO3 VBG Total CO2 VBG O2 Sat (Calc) VBG Base Excess VBG Potassium A-a O2 Difference Respiratory Index Hgb O2 Saturation Glucose Lactate FiO2 Sodium Potassium Chloride Carbon Dioxide Anion Gap BUN Creatinine Est GFR ( Amer) Est GFR (Non-Af Amer) POC Glucose (mg/dL) Random Glucose Calcium Total Bilirubin AST ALT Alkaline Phosphatase Troponin I NT-Pro-B Natriuret Pep Total Protein Albumin Globulin Albumin/Globulin Ratio Venous Blood Potassium Urine Color Urine Clarity Urine pH Ur Specific [place] Urine Protein Urine Glucose (UA) Urine Ketones Urine Blood Urine Nitrate Urine Bilirubin Urine Urobilinogen Ur Leukocyte Esterase Urine WBC (Auto) Ur Squamous Epith Cells Blood Type O POSITIVE Antibody Screen Negative Assessment & Plan - Assessment and Plan (Free Text) Assessment: IMP: L renal tumor Renal Failure DM Hypertension Asthma - Date & Time Date: 12/13/17 Time: 09:05
--- NOTE | 2017-12-13 11:13 | PCM.SURG1 ---
Surgeon's Initial Post Op Note - Surgeon's Notes Surgeon: Tin Castro Log Peeler: Deejay Bartlett Type of Anesthesia: General Endo Pre-Operative Diagnosis: L Renal tumor Operative Findings: same Post-Operative Diagnosis: same Operation Performed: Robot-assisted L radical Nephrectomy Specimen/Specimens Removed: L kidney Estimated Blood Loss: EBL {In ML}: 50 Blood Products Given: N/A Drains Used: No Drains Date of Surgery/Procedure: 12/13/17 Time of Surgery/Procedure: 11:12
[2017-12-13] MEDS ORDERED: Sodium Chloride 0.9% 500 ML IV ONE (11:21)
[2017-12-13] MEDS: HYDROmorphone 0.5 mg/0.5 ml ISec IVP PRN ×2 (11:47→12:54)
[2017-12-13] MEDS ORDERED: Dextrose 5%/0.45% NS 1,000 ML IV ONE (13:00)
[2017-12-13] MEDS: Dextrose 5%/0.45% NS 1,000 ML IV SCH (13:35)
--- NOTE | 2017-12-13 13:59 | CP.PCM.PN ---
Subjective - Date & Time of Evaluation Date of Evaluation: 12/13/17 Time of Evaluation: 13:45 - Subjective Subjective: Patient is S/P OR. He just underwent a left radical assisted robotic nephrectomy earlier this morning. He has a history of renal cell cancer. He is now in the ICU for closer monitoring. A CBC is pending for later this afternoon. He was awake and alert. Somewhat drowsy when I came and saw him. Objective - Vital Signs/Intake and Output Vital Signs (last 24 hours): Temp Pulse Resp BP Pulse Ox 99.4 F 76 13 148/76 99 12/13/17 11:21 12/13/17 13:00 12/13/17 13:00 12/13/17 13:00 12/13/17 13:00 Intake and Output: 12/13/17 12/13/17 06:59 18:59 Intake Total 100 550 Output Total 50 Balance 100 500 - Medications Medications: Current Medications Acetaminophen (Tylenol 325mg Tab) 650 mg PO Q6 PRN PRN Reason: Fever >100.4 F Albuterol/Ipratropium (Duoneb 3 Mg/0.5 Mg (3 Ml) Ud) 3 ml INH RQ6 [facility] Last Admin: 12/13/17 07:32 Dose: 3 ml Aspirin (Aspirin Chewable) 81 mg PO DAILY [facility] Budesonide (Pulmicort Respules) 0.5 mg INH RQ12 PRN PRN Reason: Shortness of Breath Last Admin: 12/13/17 07:32 Dose: 0.5 mg Carvedilol (Coreg) 12.5 mg PO BID [facility] Last Admin: 12/13/17 09:11 Dose: Not Given Hydralazine HCl (Apresoline) 100 mg PO Q8 [facility] Last Admin: 12/13/17 07:15 Dose: 100 mg Hydromorphone/Sodium Chloride (Dilaudid [employer]) 3.6 mg IV Q4H PRN; Protocol PRN Reason: Pain, severe (8-10) Last Admin: 12/13/17 12:57 Dose: 3.6 mg Cefazolin Sodium/Dextrose (Ancef Iv 1 Gm Duplex) 1 gm in 50 mls @ 100 mls/hr IVPB Q8H [facility] PRN Reason: Protocol Dextrose/Sodium Chloride (Dextrose 5%/0.45% Ns 1000 Ml) 1,000 mls @ 60 mls/hr IV .[id number] [facility] Insulin Human Regular (Novolin R) 0 unit SC ACHS [facility] PRN Reason: Protocol Last Admin: 12/13/17 08:11 Dose: Not Given Montelukast Sodium (Singulair) 10 mg PO HS [facility] Last Admin: 12/12/17 22:54 Dose: 10 mg Morphine Sulfate (Morphine) 1 mg IVP Q4 PRN PRN Reason: Pain, severe (8-10) Pantoprazole Sodium (Protonix Ec Tab) 40 mg PO DAILY [facility] Last Admin: 12/13/17 09:12 Dose: Not Given Rosuvastatin Calcium (Crestor) 10 mg PO HS [facility] Sevelamer Carbonate (Renvela) 800 mg PO TIDCC [facility] Last Admin: 12/13/17 08:15 Dose: Not Given - Labs Labs: 12/13/17 08:07 12/13/17 08:07 PT 10.8 SECONDS (9.7-12.2) 12/12/17 11:49 INR 1.0 12/12/17 11:49 APTT 31 SECONDS (21-34) 12/12/17 11:49 - Eye Exam Eye Exam: Normal appearance - ENT Exam ENT Exam: Mucous Membranes Moist - Respiratory Exam Respiratory Exam: Clear to Ausculation Bilateral, NORMAL BREATHING PATTERN Additional comments: Wearing Bipap - Cardiovascular Exam Cardiovascular Exam: REGULAR RHYTHM - GI/Abdominal Exam GI & Abdominal Exam: Soft, Tenderness Additional comments: Dressing areas are dry and clean, no bleeding, no discharge - Neurological Exam Neurological Exam: Alert, Awake, Oriented x3 Assessment and Plan - Assessment and Plan (Free Text) Assessment: 57 year old male with past medical history of renal cell cancer, NIDDM, HLD, HTN , ESRD on HD MWF, CHF with pacemaker placement, SHYANN is admitted for COPD exacerbation and possible nephrectomy scheduled for tomorrow Renal cell carcinoma 12/13: Patient is S/P left robotic assisted radial nephrectomy. Currenlty being monitored in ICU He has a STAMP PRESSER pump, labwork pending for tonight. ESRD on HD MWF 12/13: He just had HD before surgery. Currently has a permacath. Dyspnea likely 2/2 COPD exacerbation 12/13: Currently on Bipap - will check another CXRAY for tommorow. - CXR on admission was unchanged from previous imagining which showed cardiomegaly and mild pulm vascular congestion - ProBNP elevated on admission but improved from previous admissions - Troponin were elevated on admission but are similar to what they have been on previous admission. Elevation likely due to CKD - EKG showed NSR with no ST changes. Unchanged from previous EKG - Dr. Pedraza spoke with patient's yarn weigher, Dr. Brown who states that patient has been cleared for surgery. He also stated that no need to trend troponins and ekg due hx of CKD -Will consult pulm, Dr. Klein -Leigh prn for SOB -Cotninue home med: Pulmicort and singulair CHF with pacemaker - Will continue home medications: Coreg 12.5 mg po bid, hydralazine 100 mg po q 8 - Will hold plavix/aspirin for procedure DM - Will hold home oral hypoglycemic medications for procedure - Accuchecks ACHS - ISS low dose as pt will be npo past midnight - hypoglycemic protocol - Hgb A1c 11/2017 was 6.6 HLD - Will continue statin therapy - Lipid panel on 11/2017 showed normal LDL and cholestrol. TG were 424. HDL 28 HTN - Continue home medication: coreg and hydralazine - will continue to monitor SHYANN - CPAP at night and during dialysis Prophyalxis - No oral AC for procedure tomorrow - SCDs - Protonix
[2017-12-13] MEDS: ceFAZolin IV 1 gm in Dextrose 1 GM/50 ML BAG IVPB SCH ×2 (14:07→20:20)
--- NOTE | 2017-12-13 14:46 | PN ---
DATE: 12/13/2017 FOLLOWUP RENAL CONSULTATION REQUESTED BY: Sharlene Pedraza MD REASON FOR CONSULTATION: End-stage renal disease, continuation of hemodialysis, uncontrolled hypertension. HISTORY: Mr. Mehta is a 57-year-old middle-aged obese male with a past medical history significant for longstanding hypertension, type 2 diabetes, obstructive sleep apnea, asthma, CHF, cardiomyopathy, status post AICD placement, end-stage renal disease, nephrotic range proteinuria, on hemodialysis three times a week, Wednesday, Wednesday, and Wednesday who was admitted yesterday through the ER with dyspnea on exertion, shortness of breath, and for optimization for surgery this morning. The patient underwent hemodialysis last night, had ultrafiltration about 0.2 L. The patient is feeling much better. No shortness of breath, slightly anxious prior to surgery. No chest pain or palpitation. No fever. No cough. No abdominal pain. No nausea, vomiting, or diarrhea. PHYSICAL EXAMINATION: VITAL SIGNS: This morning as follows: Blood pressure 148/69, pulse 78, respirations 20, temperature is 97.1, saturation 97%. Height 5 feet 6 inches, weight is 288 pounds. GENERAL: Mr. Mehta is a 57-year-old middle-aged obese male, well built, well nourished, not in distress. HEENT: Pupils normally reactive to light and accommodation. Conjunctivae pink. Sclerae anicteric. Tongue is moist. Trachea is midline. LUNGS: Symmetric on both sides. Bilateral breath sounds present. Clear to auscultation. CVS: [place] at the fifth intercostal space, midclavicular line. S1, S2 audible. No murmur or gallop. ABDOMEN: Normal in appearance. Soft, tympanic. No guarding. No rigidity. No hepatosplenomegaly. PM TECHNICIAN: The patient is alert, awake, and oriented x3. Nonfocal neuro examination. Cranial nerves II-XII grossly intact. Sensory and motor system is within normal limits. No cyanosis, no clubbing, no edema. His current medications include: Hydralazine 100 mg p.o. every 8 hours, Coreg 12.5 mg p.o. b.i.d., DuoNeb inhaler, Novolin R per sliding scale, Protonix 40 mg p.o. daily, Pulmicort, Renvela, Singulair, and Tylenol. LABORATORY DATA: As of 12/13/2017, WBC 9.1, hemoglobin 10.1, hematocrit is 29.2, platelets 121. Sodium 135, potassium 4.2, chloride 93, CO2 28, BUN 42, creatinine 4.7, glucose 257, calcium 8.3. Total bili 0.9, AST 31, ALT 88, alkaline phosphatase 65, total protein 7, albumin is 3.8. IMPRESSION: In summary, Mr. Mehta is a 57-year-old middle-aged obese male with hypertension, diabetes, congestive heart failure, cardiomyopathy, status post automatic implantable cardioverter defibrillator placement, left renal mass, nephrotic range proteinuria, end-stage renal disease, on hemodialysis three times a week, Wednesday, Wednesday, and Wednesday, and asthma was admitted with dyspnea on exertion, shortness of breath yesterday evening. 1. End-stage renal disease. Continue hemodialysis three times a week. The patient underwent hemodialysis last night, had ultrafiltration about 4.2 L. 2. Hypertension. Blood pressure is improved. Continue Coreg and hydralazine and add nitroglycerin paste or Isordil as needed. 3. Left renal mass, rule out renal cell carcinoma. The patient is scheduled for robotic nephrectomy . 4. Asthma. Continue DuoNeb inhaler, Pulmicort, Singulair. Follow up with pulmonary doctor, . We will follow with you. Thank you for allowing me to participate in your patient's care. Talya Vogel MD
[2017-12-13 18:39] LABS: HEMOGLOBIN 9.6 g/dL (12.0-18.0); MEAN CELL VOLUME 89.4 fL (80.0-94.0); MEAN CORPUSCULAR HGB CONC 33.6 g/dL (33.0-37.0); MEAN PLATELET VOLUME 8.8 fL (7.2-11.7); RBC 3.2 Mil/uL (4.40-5.90); RED CELL DISTRIBUTION WIDTH 17.3 % (11.5-14.5); WHITE BLOOD COUNT 11.2 K/uL (4.8-10.8)
[2017-12-14] MEDS: Albuterol-Ipratrop 3 mg / 0.5 (3 ml) UD INH SCH ×4 (01:14→20:07)
[2017-12-14] MEDS: ceFAZolin IV 1 gm in Dextrose 1 GM/50 ML BAG IVPB SCH ×2 (03:32→15:34)
[2017-12-14] MEDS: Dextrose 5%/0.45% NS 1,000 ML IV SCH ×3 (04:35→20:35)
[2017-12-14 06:36] LABS: BASO % 0.3 % (0.0-2.0); EOS # 0.1 K/uL (0.0-0.7); EOS % 0.6 % (0.0-4.0); HEMOGLOBIN 9.5 g/dL (12.0-18.0); LYMPH # 0.6 K/uL (1.0-4.3); LYMPH % 6.8 % (20.0-40.0); MEAN CELL VOLUME 89.1 fL (80.0-94.0); MEAN CORPUSCULAR HEMOGLOBIN 30.2 pg (27.0-31.0); MEAN CORPUSCULAR HGB CONC 33.8 g/dL (33.0-37.0); MEAN PLATELET VOLUME 9.2 fL (7.2-11.7); MONO # 0.8 K/uL (0.0-0.8); MONO % 9.2 % (0.0-10.0); NEUT # 7.5 K/uL (1.8-7.0); NEUT % 83.1 % (50.0-75.0); PLATELET COUNT 132 K/uL (130-400); RBC 3.14 Mil/uL (4.40-5.90)
[2017-12-14 06:55] LABS: ALB/GLOB RATIO 1.3 (1.0-2.1); ALBUMIN 3.6 g/dL (3.5-5.0); CALCIUM 7.8 mg/dl (8.6-10.4)
[2017-12-14] MEDS: Budesonide 0.5 mg/2 ml Inhal Susp UD INH PRN (07:41)
[2017-12-14] MEDS: (Novolin R) Insulin Human Regular 100 units/ml vial SC SCH ×4 (07:55→22:14)
[2017-12-14 08:30] LABS: NEUTROPHIL 82 % (50-75); TOTAL CELLS COUNTED 100
[2017-12-14 08:31] LABS: ANISOCYTOSIS SLIGHT; LYMPHOCYTE 8 % (20-40); MONOCYTE 10 % (0-10); OVALOCYTES SLIGHT; PLATELET ESTIMATE NORMAL (NORMAL)
[2017-12-14] MEDS: Pantoprazole 40 mg EC Tab PO SCH (09:28)
--- NOTE | 2017-12-14 09:39 | PCM.URO ---
Urology Progress Note - General General: Tolerating Diet - Subjective Abdominal Pain: Yes Flank Pain: No Nausea: No Vomiting: No Hematuria: No Dsypnea: Yes (mild) Chest Pain: No Fever & Chills: No Other: Awake, alert. No chest pain - Objective Lab Studies: Reviewed Lab Results Last 24 Hours: Laboratory Results - last 24 hr 12/13/17 12/13/17 12/13/17 12:07 17:05 18:36 WBC 11.2 H RBC 3.20 L Hgb 9.6 L Hct 28.6 L MCV 89.4 MCH 30.0 MCHC 33.6 RDW 17.3 H Plt Count 133 MPV 8.8 Neut % (Auto) Lymph % (Auto) [place] % (Auto) Eos % (Auto) Baso % (Auto) Neut # (Auto) Lymph # (Auto) [place] # (Auto) Eos # (Auto) Baso # (Auto) Neutrophils % (Manual) Lymphocytes % (Manual) Monocytes % (Manual) Platelet Estimate Anisocytosis (manual) Ovalocytes Sodium Potassium Chloride Carbon Dioxide Anion Gap BUN Creatinine Est GFR ( Amer) Est GFR (Non-Af Amer) POC Glucose (mg/dL) 366 H 292 H Random Glucose Calcium Phosphorus Magnesium Total Bilirubin AST ALT Alkaline Phosphatase Total Protein Albumin Globulin Albumin/Globulin Ratio 12/13/17 12/14/17 12/14/17 20:52 06:27 06:28 WBC 9.0 RBC 3.14 L Hgb 9.5 L Hct 28.0 L MCV 89.1 MCH 30.2 MCHC 33.8 RDW 17.0 H Plt Count 132 MPV 9.2 Neut % (Auto) 83.1 H Lymph % (Auto) 6.8 L [place] % (Auto) 9.2 Eos % (Auto) 0.6 Baso % (Auto) 0.3 Neut # (Auto) 7.5 H Lymph # (Auto) 0.6 L [place] # (Auto) 0.8 Eos # (Auto) 0.1 Baso # (Auto) 0.0 Neutrophils % (Manual) 82 H Lymphocytes % (Manual) 8 L Monocytes % (Manual) 10 Platelet Estimate Normal Anisocytosis (manual) Slight Ovalocytes Slight Sodium 137 Potassium 4.0 Chloride 94 L Carbon Dioxide 26 Anion Gap 21 H BUN 57 H Creatinine 6.9 H Est GFR ( Amer) 10 Est GFR (Non-Af Amer) 8 POC Glucose (mg/dL) 202 H Random Glucose 159 H Calcium 7.8 L Phosphorus 8.9 H Magnesium 1.7 Total Bilirubin 0.6 AST 44 ALT 79 H Alkaline Phosphatase 55 Total Protein 6.4 Albumin 3.6 Globulin 2.8 Albumin/Globulin Ratio 1.3 12/14/17 07:49 WBC RBC Hgb Hct MCV MCH MCHC RDW Plt Count MPV Neut % (Auto) Lymph % (Auto) [place] % (Auto) Eos % (Auto) Baso % (Auto) Neut # (Auto) Lymph # (Auto) [place] # (Auto) Eos # (Auto) Baso # (Auto) Neutrophils % (Manual) Lymphocytes % (Manual) Monocytes % (Manual) Platelet Estimate Anisocytosis (manual) Ovalocytes Sodium Potassium Chloride Carbon Dioxide Anion Gap BUN Creatinine Est GFR ( Amer) Est GFR (Non-Af Amer) POC Glucose (mg/dL) 172 H Random Glucose Calcium Phosphorus Magnesium Total Bilirubin AST ALT Alkaline Phosphatase Total Protein Albumin Globulin Albumin/Globulin Ratio Intake & Output: Intake & Output 12/13/17 12/14/17 12/14/17 18:59 06:59 18:59 Intake Total 1025 770 Output Total 50 120 Balance 975 650 Weight 301 lb Intake: IV 550 Intake, IV Amount 300 720 Right Hand 300 720 Oral 175 50 Output: Urine 50 120 Urethral (Kim) 120 Vital Signs: Vital Signs - 24 hr 12/13/17 12/13/17 12/13/17 11:20 11:21 11:30 Temperature 99.4 F Pulse Rate 66 90 85 Respiratory 14 19 Rate Blood Pressure 194/91 H 162/74 H Blood Pressure [Right Radial Artery] O2 Sat by Pulse 98 99 Oximetry 12/13/17 12/13/17 12/13/17 11:47 12:00 12:15 Temperature Pulse Rate 83 66 63 Respiratory 19 19 17 Rate Blood Pressure 164/80 H 155/62 H 150/70 Blood Pressure [Right Radial Artery] O2 Sat by Pulse 99 99 99 Oximetry 12/13/17 12/13/17 12/13/17 12:30 12:45 13:00 Temperature Pulse Rate 62 75 76 Respiratory 16 13 13 Rate Blood Pressure 147/75 149/75 148/76 Blood Pressure [Right Radial Artery] O2 Sat by Pulse 99 99 99 Oximetry 12/13/17 12/13/17 12/13/17 13:15 16:00 18:29 Temperature 99.1 F 97.7 F Pulse Rate 72 Respiratory 11 L Rate Blood Pressure 147/70 154/67 H Blood Pressure [Right Radial Artery] O2 Sat by Pulse 99 Oximetry 12/13/17 12/13/17 12/13/17 19:00 19:20 20:00 Temperature 97.7 F Pulse Rate 72 64 72 Respiratory 17 18 Rate Blood Pressure 144/71 139/55 L Blood Pressure [Right Radial Artery] O2 Sat by Pulse 98 98 Oximetry 12/13/17 12/13/17 12/13/17 21:00 22:00 23:00 Temperature Pulse Rate 71 67 74 Respiratory 20 17 21 Rate Blood Pressure 135/48 L 147/54 L 141/72 Blood Pressure 138/77 [Right Radial Artery] O2 Sat by Pulse 98 98 98 Oximetry 12/14/17 12/14/17 12/14/17 00:00 01:00 02:00 Temperature 97.8 F Pulse Rate 82 78 81 Respiratory 19 18 16 Rate Blood Pressure 144/75 143/77 138/67 Blood Pressure [Right Radial Artery] O2 Sat by Pulse 98 99 100 Oximetry 12/14/17 12/14/17 12/14/17 03:00 04:00 05:00 Temperature 98.4 F Pulse Rate 76 76 Respiratory 16 16 17 Rate Blood Pressure 141/76 145/75 144/67 Blood Pressure [Right Radial Artery] O2 Sat by Pulse 100 100 100 Oximetry 12/14/17 12/14/17 06:00 07:38 Temperature Pulse Rate 76 Respiratory 19 Rate Blood Pressure 151/75 H Blood Pressure [Right Radial Artery] O2 Sat by Pulse 100 Oximetry - Physical Exam Abdominal Exam: Soft, Non-Distended (protuberent, obese Dressings - dry and intact). absent: Non-Tender Dressing: Dry, Intact Back: No CVA Tenderness Genitalia: Without Inflammation Urinary Catheter Draining Well: Yes Urine Color: Clear, Yellow Extremities: Thigh Tenderness: Bilateral (no calf or thigh tenderness) - Male Phallus: Normal - Plan Discontinue Urinary Catheter: Yes Ambulation - Out of Bed: Yes Intake & Output: Yes See Orders: Yes Additional Information: IMP: Stable , POD#1, s/p L nephrectomy. Hx of Asthma, DM, Hypertension. Renal failure. P/rec: D/C kim cath. OOB. ICU care. Resp care. Dialysis, as per nephrology. Discussd w pt and w ICU staff - Date & Time of Note Date: 12/14/17 Time: 08:15
[2017-12-14] MEDS ORDERED: Bisacodyl 5mg EC Tab PO ONE (10:00)
[2017-12-14] MEDS ORDERED: Paricalcitol 2 mcg/ml Inj IV SCH (10:00)
[2017-12-14] MEDS: Epoetin Alfa 10,000 unit/ml Dialysis IV SCH (11:44)
[2017-12-14] MEDS: Epoetin Alfa Dialysis 2000 U/ML Inj IV SCH (11:45)
--- NOTE | 2017-12-14 12:23 | CP.CCUPN ---
<[place] - Last Filed: 12/14/17 14:21> CCU Subjective - Physician Review Subjective (Free Text): Patient seen and examined at bedside. Patient reports he is in pain. Denied passing flatus or having a BM. CCU Objective - Vital Signs / Intake & Output Vital Signs (Last 4 hours): Vital Signs Temp Pulse Pulse Resp BP BP Pulse Ox 12/14/17 12:15 64 12 139/71 96 12/14/17 12:00 82 17 143/73 96 12/14/17 11:45 84 12 123/68 96 12/14/17 11:30 76 15 140/75 96 12/14/17 11:14 71 15 152/78 H 96 12/14/17 11:00 68 19 161/74 H 100 12/14/17 10:45 98.9 F 66 16 156/73 H 96 12/14/17 10:39 98.9 F 66 16 141/65 12/14/17 10:00 72 17 157/74 H 96 12/14/17 09:00 81 17 148/74 96 Intake and Output (Last 8hrs): Intake & Output 12/13/17 12/14/17 12/14/17 22:59 06:59 14:59 Intake Total 655 480 560 Output Total 20 100 75 Balance 635 380 485 Weight 301 lb 301 lb Intake: Intake, IV Amount 480 480 240 Right Hand 480 480 240 Oral 175 320 Output: Urine 20 100 75 Urethral ([place]) 20 100 75 - Physical Exam Head: Positive for: Atraumatic, Normocephalic Pupils: Positive for: PERRL Extroacular Muscles: Positive for: EOMI Conjunctiva: Positive for: Normal Mouth: Positive for: Moist Mucous Membranes Neck: Positive for: Normal Range of Motion Respiratory/Chest: Positive for: Clear to Auscultation. Negative for: Respiratory Distress, Accessory Muscle Use Cardiovascular: Positive for: Regular Rate and Rhythm, Normal S1, S2 Abdomen: Positive for: Tenderness, Normal Bowel Sounds. Negative for: Distention Upper Extremity: Positive for: Normal Inspection, Normal ROM, NORMAL PULSES, Neurovascularly Intact, Capillary Refill < 2s Lower Extremity: Positive for: Normal Inspection, NORMAL PULSES, Neurovascularly Intact, Capillary Refill < 2 s Neurological: Positive for: GCS=15, CN II-XII Intact Skin: Positive for: Warm, Dry, Normal Color Psychiatric: Positive for: Alert, Oriented x 3 - Medications Active Medications: Active Medications Generic Name Dose Route Start Last Admin Trade Name Freq PRN Reason Stop Dose Admin Acetaminophen 650 mg 12/12/17 16:07 Tylenol 325mg Tab PO Q6 PRN Fever >100.4 F Albuterol/Ipratropium 3 ml 12/12/17 20:00 12/14/17 07:41 Duoneb 3 Mg/0.5 Mg (3 Ml) Ud INH 3 ml RQ6 BETHANY Administration Aspirin 81 mg 12/15/17 10:00 Aspirin Chewable PO DAILY BETHANY Budesonide 0.5 mg 12/12/17 16:16 12/14/17 07:41 Pulmicort Respules INH 0.5 mg RQ12 PRN Administration Shortness of Breath Calcium Acetate 667 mg 12/14/17 17:00 Phoslo PO BIDCC BETHANY Carvedilol 12.5 mg 12/12/17 18:00 12/14/17 09:34 Coreg PO Not Given BID BETHANY Docusate Sodium 100 mg 12/14/17 10:00 12/14/17 09:35 Colace PO Not Given TID BETHANY Epoetin Ant 10,000 unit 12/14/17 10:00 12/14/17 11:44 Procrit IV 10,000 unit TTS BETHANY Administration Epoetin Ant 2,000 u 12/14/17 10:00 12/14/17 11:45 Procrit IV 2,000 u TTS BETHANY Administration Hydralazine HCl 100 mg 12/12/17 16:15 12/14/17 05:25 Apresoline PO 100 mg Q8 BETHANY Administration Hydromorphone/Sodium Chloride 3.6 mg 12/13/17 12:13 12/13/17 12:57 Dilaudid Group Controller IV 3.6 mg Q4H PRN Administration Pain, severe (8-10) Protocol Cefazolin Sodium/Dextrose 1 gm in 50 mls @ 100 mls/hr 12/13/17 12:15 03:32 Ancef Iv 1 Gm Duplex IVPB 12/14/17 12:20 100 mls/hr Q8H BETHANY Administration Protocol Dextrose/Sodium Chloride 1,000 mls @ 60 mls/hr 12/13/17 11:15 12/14/17 08:52 Dextrose 5%/0.45% Ns 1000 Ml IV 60 mls/hr .[id number] BETHANY Administration Insulin Human Regular 0 unit 12/12/17 16:30 12/14/17 11:41 Novolin R SC 1 units ACHS BETHANY Administration Protocol Montelukast Sodium 10 mg 12/12/17 22:00 12/13/17 21:55 Singulair PO 10 mg HS BETHANY Administration Morphine Sulfate 1 mg 12/13/17 14:00 Morphine IVP Q4 PRN Pain, severe (8-10) Pantoprazole Sodium 40 mg 12/13/17 10:00 12/14/17 09:28 Protonix Ec Tab PO 40 mg DAILY BETHANY Administration Paricalcitol 2 mcg 12/14/17 10:00 12/14/17 11:46 Zemplar IV 2 mcg TTS BETHANY Administration Rosuvastatin Calcium 10 mg 12/13/17 22:00 12/13/17 21:55 Crestor PO 10 mg HS BETHANY Administration Sevelamer Carbonate 800 mg 12/12/17 17:00 12/14/17 11:41 Renvela PO 800 mg TIDCC BETHANY Administration - Patient Studies Lab Studies: Lab Studies 12/14/17 12/14/17 12/14/17 Range/Units 11:14 07:49 06:28 WBC 9.0 (4.8-10.8) K/uL RBC 3.14 L (4.40-5.90) Mil/uL Hgb 9.5 L (12.0-18.0) g/dL Hct 28.0 L (35.0-51.0) % MCV 89.1 (80.0-94.0) fL MCH 30.2 (27.0-31.0) pg MCHC 33.8 (33.0-37.0) g/dL RDW 17.0 H (11.5-14.5) % Plt Count 132 (130-400) K/uL MPV 9.2 (7.2-11.7) fL Neut % (Auto) 83.1 H (50.0-75.0) % Lymph % (Auto) 6.8 L (20.0-40.0) % [place] % (Auto) 9.2 (0.0-10.0) % Eos % (Auto) 0.6 (0.0-4.0) % Baso % (Auto) 0.3 (0.0-2.0) % Neut # (Auto) 7.5 H (1.8-7.0) K/uL Lymph # (Auto) 0.6 L (1.0-4.3) K/uL [place] # (Auto) 0.8 (0.0-0.8) K/uL Eos # (Auto) 0.1 (0.0-0.7) K/uL Baso # (Auto) 0.0 (0.0-0.2) K/uL Neutrophils % (Manual) 82 H (50-75) % Lymphocytes % (Manual) 8 L (20-40) % Monocytes % (Manual) 10 (0-10) % Platelet Estimate Normal (NORMAL) Anisocytosis (manual) Slight Ovalocytes Slight Sodium (132-148) mmol/L Potassium (3.6-5.2) mmol/L Chloride (98-107) mmol/L Carbon Dioxide (22-30) mmol/L Anion Gap (10-20) BUN (9-20) mg/dL Creatinine (0.8-1.5) mg/dL Est GFR ( Amer) Est GFR (Non-Af Amer) POC Glucose (mg/dL) 160 H 172 H (65-110) mg/dL Random Glucose (75-110) mg/dL Calcium (8.6-10.4) mg/dl Phosphorus (2.5-4.5) mg/dL Magnesium (1.6-2.3) mg/dL Total Bilirubin (0.2-1.3) mg/dL AST (17-59) U/L ALT (21-72) U/L Alkaline Phosphatase (38-126) U/L Total Protein (6.3-8.3) g/dL Albumin (3.5-5.0) g/dL Globulin (2.2-3.9) gm/dL Albumin/Globulin Ratio (1.0-2.1) 12/14/17 12/13/17 12/13/17 Range/Units 06:27 20:52 18:36 WBC 11.2 H (4.8-10.8) K/uL RBC 3.20 L (4.40-5.90) Mil/uL Hgb 9.6 L (12.0-18.0) g/dL Hct 28.6 L (35.0-51.0) % MCV 89.4 (80.0-94.0) fL MCH 30.0 (27.0-31.0) pg MCHC 33.6 (33.0-37.0) g/dL RDW 17.3 H (11.5-14.5) % Plt Count 133 (130-400) K/uL MPV 8.8 (7.2-11.7) fL Neut % (Auto) (50.0-75.0) % Lymph % (Auto) (20.0-40.0) % [place] % (Auto) (0.0-10.0) % Eos % (Auto) (0.0-4.0) % Baso % (Auto) (0.0-2.0) % Neut # (Auto) (1.8-7.0) K/uL Lymph # (Auto) (1.0-4.3) K/uL [place] # (Auto) (0.0-0.8) K/uL Eos # (Auto) (0.0-0.7) K/uL Baso # (Auto) (0.0-0.2) K/uL Neutrophils % (Manual) (50-75) % Lymphocytes % (Manual) (20-40) % Monocytes % (Manual) (0-10) % Platelet Estimate (NORMAL) Anisocytosis (manual) Ovalocytes Sodium 137 (132-148) mmol/L Potassium 4.0 (3.6-5.2) mmol/L Chloride 94 L (98-107) mmol/L Carbon Dioxide 26 (22-30) mmol/L Anion Gap 21 H (10-20) BUN 57 H (9-20) mg/dL Creatinine 6.9 H (0.8-1.5) mg/dL Est GFR ( Amer) 10 Est GFR (Non-Af Amer) 8 POC Glucose (mg/dL) 202 H (65-110) mg/dL Random Glucose 159 H (75-110) mg/dL Calcium 7.8 L (8.6-10.4) mg/dl Phosphorus 8.9 H (2.5-4.5) mg/dL Magnesium 1.7 (1.6-2.3) mg/dL Total Bilirubin 0.6 (0.2-1.3) mg/dL AST 44 (17-59) U/L ALT 79 H (21-72) U/L Alkaline Phosphatase 55 (38-126) U/L Total Protein 6.4 (6.3-8.3) g/dL Albumin 3.6 (3.5-5.0) g/dL Globulin 2.8 (2.2-3.9) gm/dL Albumin/Globulin Ratio 1.3 (1.0-2.1) /05/22 Range/Units 17:05 WBC (4.8-10.8) K/uL RBC (4.40-5.90) Mil/uL Hgb (12.0-18.0) g/dL Hct (35.0-51.0) % MCV (80.0-94.0) fL MCH (27.0-31.0) pg MCHC (33.0-37.0) g/dL RDW (11.5-14.5) % Plt Count (130-400) K/uL MPV (7.2-11.7) fL Neut % (Auto) (50.0-75.0) % Lymph % (Auto) (20.0-40.0) % [place] % (Auto) (0.0-10.0) % Eos % (Auto) (0.0-4.0) % Baso % (Auto) (0.0-2.0) % Neut # (Auto) (1.8-7.0) K/uL Lymph # (Auto) (1.0-4.3) K/uL [place] # (Auto) (0.0-0.8) K/uL Eos # (Auto) (0.0-0.7) K/uL Baso # (Auto) (0.0-0.2) K/uL Neutrophils % (Manual) (50-75) % Lymphocytes % (Manual) (20-40) % Monocytes % (Manual) (0-10) % Platelet Estimate (NORMAL) Anisocytosis (manual) Ovalocytes Sodium (132-148) mmol/L Potassium (3.6-5.2) mmol/L Chloride (98-107) mmol/L Carbon Dioxide (22-30) mmol/L Anion Gap (10-20) BUN (9-20) mg/dL Creatinine (0.8-1.5) mg/dL Est GFR ( Amer) Est GFR (Non-Af Amer) POC Glucose (mg/dL) 292 H (65-110) mg/dL Random Glucose (75-110) mg/dL Calcium (8.6-10.4) mg/dl Phosphorus (2.5-4.5) mg/dL Magnesium (1.6-2.3) mg/dL Total Bilirubin (0.2-1.3) mg/dL AST (17-59) U/L ALT (21-72) U/L Alkaline Phosphatase (38-126) U/L Total Protein (6.3-8.3) g/dL Albumin (3.5-5.0) g/dL Globulin (2.2-3.9) gm/dL Albumin/Globulin Ratio (1.0-2.1) Laboratory Results - last 24 hr 12/13/17 12/13/17 12/13/17 17:05 18:36 20:52 WBC 11.2 H RBC 3.20 L Hgb 9.6 L Hct 28.6 L MCV 89.4 MCH 30.0 MCHC 33.6 RDW 17.3 H Plt Count 133 MPV 8.8 Neut % (Auto) Lymph % (Auto) [place] % (Auto) Eos % (Auto) Baso % (Auto) Neut # (Auto) Lymph # (Auto) [place] # (Auto) Eos # (Auto) Baso # (Auto) Neutrophils % (Manual) Lymphocytes % (Manual) Monocytes % (Manual) Platelet Estimate Anisocytosis (manual) Ovalocytes Sodium Potassium Chloride Carbon Dioxide Anion Gap BUN Creatinine Est GFR ( Amer) Est GFR (Non-Af Amer) POC Glucose (mg/dL) 292 H 202 H Random Glucose Calcium Phosphorus Magnesium Total Bilirubin AST ALT Alkaline Phosphatase Total Protein Albumin Globulin Albumin/Globulin Ratio 12/14/17 12/14/17 12/14/17 06:27 06:28 07:49 WBC 9.0 RBC 3.14 L Hgb 9.5 L Hct 28.0 L MCV 89.1 MCH 30.2 MCHC 33.8 RDW 17.0 H Plt Count 132 MPV 9.2 Neut % (Auto) 83.1 H Lymph % (Auto) 6.8 L [place] % (Auto) 9.2 Eos % (Auto) 0.6 Baso % (Auto) 0.3 Neut # (Auto) 7.5 H Lymph # (Auto) 0.6 L [place] # (Auto) 0.8 Eos # (Auto) 0.1 Baso # (Auto) 0.0 Neutrophils % (Manual) 82 H Lymphocytes % (Manual) 8 L Monocytes % (Manual) 10 Platelet Estimate Normal Anisocytosis (manual) Slight Ovalocytes Slight Sodium 137 Potassium 4.0 Chloride 94 L Carbon Dioxide 26 Anion Gap 21 H BUN 57 H Creatinine 6.9 H Est GFR ( Amer) 10 Est GFR (Non-Af Amer) 8 POC Glucose (mg/dL) 172 H Random Glucose 159 H Calcium 7.8 L Phosphorus 8.9 H Magnesium 1.7 Total Bilirubin 0.6 AST 44 ALT 79 H Alkaline Phosphatase 55 Total Protein 6.4 Albumin 3.6 Globulin 2.8 Albumin/Globulin Ratio 1.3 12/14/17 11:14 WBC RBC Hgb Hct MCV MCH MCHC RDW Plt Count MPV Neut % (Auto) Lymph % (Auto) [place] % (Auto) Eos % (Auto) Baso % (Auto) Neut # (Auto) Lymph # (Auto) [place] # (Auto) Eos # (Auto) Baso # (Auto) Neutrophils % (Manual) Lymphocytes % (Manual) Monocytes % (Manual) Platelet Estimate Anisocytosis (manual) Ovalocytes Sodium Potassium Chloride Carbon Dioxide Anion Gap BUN Creatinine Est GFR ( Amer) Est GFR (Non-Af Amer) POC Glucose (mg/dL) 160 H Random Glucose Calcium Phosphorus Magnesium Total Bilirubin AST ALT Alkaline Phosphatase Total Protein Albumin Globulin Albumin/Globulin Ratio Fingerstick Blood Sugar Results: 160 Critical Care Progress Note - Nutrition Nutrition: Nutrition Category Date Time Status Renal Diet [DIET] Diets 12/13/17 Dinner Active Assessment/Plan - Assessment and Plan (Free Text) Assessment: This is a 57 year old male with PMHx of renal cell cancer, NIDDM, HLD, HTN, CHF with pacemaker placement, ESRD on HD MWF (L AVF), and SHYANN who is admitted for observation in the ICU s/p left robot-assisted radical Nephrectomy with Dr. Beth Bartlett 12/13/17. Plan: Neuro: GCS 15 Cardio: A: Cardiomyopathy with PPM EF <30% - Resumed Aspirin 81mg PO daily, Coreg 12.5 mg PO BID, Crestor 10mg POqHS, Hydralazine 100mg PO Q8H A: HTN - Resumed Aspirin 81mg PO daily, Coreg 12.5 mg PO BID, Crestor 10mg POqHS, Hydralazine 100mg PO Q8H A: SHYANN - CPAP at night - Recommend sleep study outpatient to qualify for CPAP A: Thoracic Aneursym - CT Chest: Mild ascending thoracic aneurysm 4.3 cm greatest dimension terminating at the anterior arch. Will need to follow up in 6-12 months Pulm: A: Asthma - Duonebs every 4 hours PRN, Singulair 10mg PO qHS Renal: A: ERSD on HD T//Wed Nephrology consult (Dr. Boswell) - Resumed Renvela 800mg PO TIDCC, Procit with dialysis, Phoslo added A: Renal Cell Carcinoma of Left Kidney S/P left robot-assisted radical Nephrectomy Heme/Onc: A: Anemia of Chronic Disease - Continue to monitor - Procrit during dialysis days Prophylaxis - Protonix - VTE c/i s/p surgery - will resume during scheduled dialysis Disposition: Patient is transferred to MED/SURG. DW Dr. Noyola, [place] DO, PGY-1 <Dominic [place] - Last Filed: 12/14/17 14:32> CCU Objective - Vital Signs / Intake & Output Vital Signs (Last 4 hours): Vital Signs Temp Pulse Pulse Resp BP BP Pulse Ox 12/14/17 14:00 77 16 94/64 L 97 12/14/17 13:58 67 19 117/61 96 12/14/17 13:45 76 11 L 129/62 96 12/14/17 13:29 81 66 11 L 106/74 96 12/14/17 13:15 65 13 128/68 96 12/14/17 13:00 68 80 14 127/69 113/73 98 12/14/17 12:45 65 12 137/71 96 12/14/17 12:30 78 14 138/76 96 12/14/17 12:15 64 12 139/71 96 12/14/17 12:00 97.8 F 81 82 14 128/89 143/73 97 12/14/17 11:45 84 12 123/68 96 12/14/17 11:30 76 15 140/75 96 12/14/17 11:14 71 15 152/78 H 96 12/14/17 11:00 67 68 14 159/74 H 161/74 H 96 12/14/17 10:45 98.9 F 66 16 156/73 H 96 12/14/17 10:39 98.9 F 66 16 141/65 Intake and Output (Last 8hrs): Intake & Output 12/13/17 12/14/17 12/14/17 22:59 06:59 14:59 Intake Total 655 480 920 Output Total 20 100 75 Balance 635 380 845 Weight 301 lb 301 lb Intake: Intake, IV Amount 480 480 480 Right Hand 480 480 480 Oral 175 440 Output: Urine 20 100 75 Urethral ([place]) 20 100 75 Urine, Voided 0 - Medications Active Medications: Active Medications Generic Name Dose Route Start Last Admin Trade Name Freq PRN Reason Stop Dose Admin Acetaminophen 650 mg 12/12/17 16:07 Tylenol 325mg Tab PO Q6 PRN Fever >100.4 F Albuterol/Ipratropium 3 ml 12/12/17 20:00 12/14/17 13:29 Duoneb 3 Mg/0.5 Mg (3 Ml) Ud INH 3 ml RQ6 BETHANY Administration Aspirin 81 mg 12/15/17 10:00 Aspirin Chewable PO DAILY BETHANY Budesonide 0.5 mg 12/12/17 16:16 12/14/17 07:41 Pulmicort Respules INH 0.5 mg RQ12 PRN Administration Shortness of Breath Calcium Acetate 667 mg 12/14/17 17:00 Phoslo PO BIDCC [facility] Carvedilol 12.5 mg 12/12/17 18:00 12/14/17 09:34 Coreg PO Not Given BID BETHANY Docusate Sodium 100 mg 12/14/17 10:00 12/14/17 14:15 Colace PO Not Given TID BETHANY Epoetin Ant 10,000 unit 12/14/17 10:00 12/14/17 11:44 Procrit IV 10,000 unit TTS BETHANY Administration Epoetin Ant 2,000 u 12/14/17 10:00 12/14/17 11:45 Procrit IV 2,000 u TTS BETHANY Administration Hydralazine HCl 100 mg 12/12/17 16:15 12/14/17 14:14 Apresoline PO Not Given Q8 BETHANY Hydromorphone/Sodium Chloride 3.6 mg 12/13/17 12:13 12/13/17 12:57 Dilaudid Group Controller IV 3.6 mg Q4H PRN Administration Pain, severe (8-10) Protocol Dextrose/Sodium Chloride 1,000 mls @ 60 mls/hr 12/13/17 11:15 12/14/17 08:52 Dextrose 5%/0.45% Ns 1000 Ml IV 60 mls/hr .[id number] BETHANY Administration Insulin Human Regular 0 unit 12/12/17 16:30 12/14/17 11:41 Novolin R SC 1 units ACHS BETHANY Administration Protocol Montelukast Sodium 10 mg 12/12/17 22:00 12/13/17 21:55 Singulair PO 10 mg HS BETHANY Administration Morphine Sulfate 1 mg 12/13/17 14:00 Morphine IVP Q4 PRN Pain, severe (8-10) Pantoprazole Sodium 40 mg 12/13/17 10:00 12/14/17 09:28 Protonix Ec Tab PO 40 mg DAILY BETHANY Administration Paricalcitol 2 mcg 12/14/17 10:00 12/14/17 11:46 Zemplar IV 2 mcg TTS BETHANY Administration Rosuvastatin Calcium 10 mg 12/13/17 22:00 12/13/17 21:55 Crestor PO 10 mg HS BETHANY Administration Sevelamer Carbonate 800 mg 12/12/17 17:00 12/14/17 11:41 Renvela PO 800 mg TIDCC BETHANY Administration - Patient Studies Lab Studies: Lab Studies 12/14/17 12/14/17 12/14/17 Range/Units 11:14 07:49 06:28 WBC 9.0 (4.8-10.8) K/uL RBC 3.14 L (4.40-5.90) Mil/uL Hgb 9.5 L (12.0-18.0) g/dL Hct 28.0 L (35.0-51.0) % MCV 89.1 (80.0-94.0) fL MCH 30.2 (27.0-31.0) pg MCHC 33.8 (33.0-37.0) g/dL RDW 17.0 H (11.5-14.5) % Plt Count 132 (130-400) K/uL MPV 9.2 (7.2-11.7) fL Neut % (Auto) 83.1 H (50.0-75.0) % Lymph % (Auto) 6.8 L (20.0-40.0) % [place] % (Auto) 9.2 (0.0-10.0) % Eos % (Auto) 0.6 (0.0-4.0) % Baso % (Auto) 0.3 (0.0-2.0) % Neut # (Auto) 7.5 H (1.8-7.0) K/uL Lymph # (Auto) 0.6 L (1.0-4.3) K/uL [place] # (Auto) 0.8 (0.0-0.8) K/uL Eos # (Auto) 0.1 (0.0-0.7) K/uL Baso # (Auto) 0.0 (0.0-0.2) K/uL Neutrophils % (Manual) 82 H (50-75) % Lymphocytes % (Manual) 8 L (20-40) % Monocytes % (Manual) 10 (0-10) % Platelet Estimate Normal (NORMAL) Anisocytosis (manual) Slight Ovalocytes Slight Sodium (132-148) mmol/L Potassium (3.6-5.2) mmol/L Chloride (98-107) mmol/L Carbon Dioxide (22-30) mmol/L Anion Gap (10-20) BUN (9-20) mg/dL Creatinine (0.8-1.5) mg/dL Est GFR ( Amer) Est GFR (Non-Af Amer) POC Glucose (mg/dL) 160 H 172 H (65-110) mg/dL Random Glucose (75-110) mg/dL Calcium (8.6-10.4) mg/dl Phosphorus (2.5-4.5) mg/dL Magnesium (1.6-2.3) mg/dL Total Bilirubin (0.2-1.3) mg/dL AST (17-59) U/L ALT (21-72) U/L Alkaline Phosphatase (38-126) U/L Total Protein (6.3-8.3) g/dL Albumin (3.5-5.0) g/dL Globulin (2.2-3.9) gm/dL Albumin/Globulin Ratio (1.0-2.1) 12/14/17 12/13/17 12/13/17 Range/Units 06:27 20:52 18:36 WBC 11.2 H (4.8-10.8) K/uL RBC 3.20 L (4.40-5.90) Mil/uL Hgb 9.6 L (12.0-18.0) g/dL Hct 28.6 L (35.0-51.0) % MCV 89.4 (80.0-94.0) fL MCH 30.0 (27.0-31.0) pg MCHC 33.6 (33.0-37.0) g/dL RDW 17.3 H (11.5-14.5) % Plt Count 133 (130-400) K/uL MPV 8.8 (7.2-11.7) fL Neut % (Auto) (50.0-75.0) % Lymph % (Auto) (20.0-40.0) % [place] % (Auto) (0.0-10.0) % Eos % (Auto) (0.0-4.0) % Baso % (Auto) (0.0-2.0) % Neut # (Auto) (1.8-7.0) K/uL Lymph # (Auto) (1.0-4.3) K/uL [place] # (Auto) (0.0-0.8) K/uL Eos # (Auto) (0.0-0.7) K/uL Baso # (Auto) (0.0-0.2) K/uL Neutrophils % (Manual) (50-75) % Lymphocytes % (Manual) (20-40) % Monocytes % (Manual) (0-10) % Platelet Estimate (NORMAL) Anisocytosis (manual) Ovalocytes Sodium 137 (132-148) mmol/L Potassium 4.0 (3.6-5.2) mmol/L Chloride 94 L (98-107) mmol/L Carbon Dioxide 26 (22-30) mmol/L Anion Gap 21 H (10-20) BUN 57 H (9-20) mg/dL Creatinine 6.9 H (0.8-1.5) mg/dL Est GFR ( Amer) 10 Est GFR (Non-Af Amer) 8 POC Glucose (mg/dL) 202 H (65-110) mg/dL Random Glucose 159 H (75-110) mg/dL Calcium 7.8 L (8.6-10.4) mg/dl Phosphorus 8.9 H (2.5-4.5) mg/dL Magnesium 1.7 (1.6-2.3) mg/dL Total Bilirubin 0.6 (0.2-1.3) mg/dL AST 44 (17-59) U/L ALT 79 H (21-72) U/L Alkaline Phosphatase 55 (38-126) U/L Total Protein 6.4 (6.3-8.3) g/dL Albumin 3.6 (3.5-5.0) g/dL Globulin 2.8 (2.2-3.9) gm/dL Albumin/Globulin Ratio 1.3 (1.0-2.1) 12/13/17 Range/Units 17:05 WBC (4.8-10.8) K/uL RBC (4.40-5.90) Mil/uL Hgb (12.0-18.0) g/dL Hct (35.0-51.0) % MCV (80.0-94.0) fL MCH (27.0-31.0) pg MCHC (33.0-37.0) g/dL RDW (11.5-14.5) % Plt Count (130-400) K/uL MPV (7.2-11.7) fL Neut % (Auto) (50.0-75.0) % Lymph % (Auto) (20.0-40.0) % [place] % (Auto) (0.0-10.0) % Eos % (Auto) (0.0-4.0) % Baso % (Auto) (0.0-2.0) % Neut # (Auto) (1.8-7.0) K/uL Lymph # (Auto) (1.0-4.3) K/uL [place] # (Auto) (0.0-0.8) K/uL Eos # (Auto) (0.0-0.7) K/uL Baso # (Auto) (0.0-0.2) K/uL Neutrophils % (Manual) (50-75) % Lymphocytes % (Manual) (20-40) % Monocytes % (Manual) (0-10) % Platelet Estimate (NORMAL) Anisocytosis (manual) Ovalocytes Sodium (132-148) mmol/L Potassium (3.6-5.2) mmol/L Chloride (98-107) mmol/L Carbon Dioxide (22-30) mmol/L Anion Gap (10-20) BUN (9-20) mg/dL Creatinine (0.8-1.5) mg/dL Est GFR ( Amer) Est GFR (Non-Af Amer) POC Glucose (mg/dL) 292 H (65-110) mg/dL Random Glucose (75-110) mg/dL Calcium (8.6-10.4) mg/dl Phosphorus (2.5-4.5) mg/dL Magnesium (1.6-2.3) mg/dL Total Bilirubin (0.2-1.3) mg/dL AST (17-59) U/L ALT (21-72) U/L Alkaline Phosphatase (38-126) U/L Total Protein (6.3-8.3) g/dL Albumin (3.5-5.0) g/dL Globulin (2.2-3.9) gm/dL Albumin/Globulin Ratio (1.0-2.1) Laboratory Results - last 24 hr 12/13/17 12/13/17 12/13/17 17:05 18:36 20:52 WBC 11.2 H RBC 3.20 L Hgb 9.6 L Hct 28.6 L MCV 89.4 MCH 30.0 MCHC 33.6 RDW 17.3 H Plt Count 133 MPV 8.8 Neut % (Auto) Lymph % (Auto) [place] % (Auto) Eos % (Auto) Baso % (Auto) Neut # (Auto) Lymph # (Auto) [place] # (Auto) Eos # (Auto) Baso # (Auto) Neutrophils % (Manual) Lymphocytes % (Manual) Monocytes % (Manual) Platelet Estimate Anisocytosis (manual) Ovalocytes Sodium Potassium Chloride Carbon Dioxide Anion Gap BUN Creatinine Est GFR ( Amer) Est GFR (Non-Af Amer) POC Glucose (mg/dL) 292 H 202 H Random Glucose Calcium Phosphorus Magnesium Total Bilirubin AST ALT Alkaline Phosphatase Total Protein Albumin Globulin Albumin/Globulin Ratio 12/14/17 12/14/17 12/14/17 06:27 06:28 07:49 WBC 9.0 RBC 3.14 L Hgb 9.5 L Hct 28.0 L MCV 89.1 MCH 30.2 MCHC 33.8 RDW 17.0 H Plt Count 132 MPV 9.2 Neut % (Auto) 83.1 H Lymph % (Auto) 6.8 L [place] % (Auto) 9.2 Eos % (Auto) 0.6 Baso % (Auto) 0.3 Neut # (Auto) 7.5 H Lymph # (Auto) 0.6 L [place] # (Auto) 0.8 Eos # (Auto) 0.1 Baso # (Auto) 0.0 Neutrophils % (Manual) 82 H Lymphocytes % (Manual) 8 L Monocytes % (Manual) 10 Platelet Estimate Normal Anisocytosis (manual) Slight Ovalocytes Slight Sodium 137 Potassium 4.0 Chloride 94 L Carbon Dioxide 26 Anion Gap 21 H BUN 57 H Creatinine 6.9 H Est GFR ( Amer) 10 Est GFR (Non-Af Amer) 8 POC Glucose (mg/dL) 172 H Random Glucose 159 H Calcium 7.8 L Phosphorus 8.9 H Magnesium 1.7 Total Bilirubin 0.6 AST 44 ALT 79 H Alkaline Phosphatase 55 Total Protein 6.4 Albumin 3.6 Globulin 2.8 Albumin/Globulin Ratio 1.3 12/14/17 11:14 WBC RBC Hgb Hct MCV MCH MCHC RDW Plt Count MPV Neut % (Auto) Lymph % (Auto) [place] % (Auto) Eos % (Auto) Baso % (Auto) Neut # (Auto) Lymph # (Auto) [place] # (Auto) Eos # (Auto) Baso # (Auto) Neutrophils % (Manual) Lymphocytes % (Manual) Monocytes % (Manual) Platelet Estimate Anisocytosis (manual) Ovalocytes Sodium Potassium Chloride Carbon Dioxide Anion Gap BUN Creatinine Est GFR ( Amer) Est GFR (Non-Af Amer) POC Glucose (mg/dL) 160 H Random Glucose Calcium Phosphorus Magnesium Total Bilirubin AST ALT Alkaline Phosphatase Total Protein Albumin Globulin Albumin/Globulin Ratio Critical Care Progress Note - Nutrition Nutrition: Nutrition Category Date Time Status Renal Diet [DIET] Diets 12/13/17 Dinner Active Attending/Attestation - Attestation I have personally seen and examined this patient.: Yes I have fully participated in the care of the patient.: Yes I have reviewed all pertinent clinical information: Yes Notes (Text): 12/14/17 14:31 Today: Thursday, December 14, 2017 The Patient was seen and examined at the bedside, Medical records reviewed, and management issues were discussed and formulated with the house staff. I have reviewed all the relevant clinical, laboratory, hemodynamic, radiographic data and medications Events reviewed Agree with above resident's assessment and treatment plans of care as transcribed in Dr. Lake note.
--- NOTE | 2017-12-14 13:47 | CP.PCM.PN ---
Subjective - Date & Time of Evaluation Date of Evaluation: 12/14/17 Time of Evaluation: 13:30 - Subjective Subjective: Patient was getting HD at bedside when I came. He was sleeping. I did not wake him up. Discussed with staff. Currently BP and HR have been stable. On lab work his Hgb is also stable as well. Objective - Vital Signs/Intake and Output Vital Signs (last 24 hours): Temp Pulse Resp BP Pulse Ox 97.8 F 66 11 L 106/74 96 12/14/17 12:00 12/14/17 13:29 12/14/17 13:29 12/14/17 13:29 12/14/17 13:29 Intake and Output: 12/14/17 12/14/17 06:59 18:59 Intake Total 770 860 Output Total 120 75 Balance 650 785 - Medications Medications: Current Medications Acetaminophen (Tylenol 325mg Tab) 650 mg PO Q6 PRN PRN Reason: Fever >100.4 F Albuterol/Ipratropium (Duoneb 3 Mg/0.5 Mg (3 Ml) Ud) 3 ml INH RQ6 [facility] Last Admin: 12/14/17 13:29 Dose: 3 ml Aspirin (Aspirin Chewable) 81 mg PO DAILY [facility] Budesonide (Pulmicort Respules) 0.5 mg INH RQ12 PRN PRN Reason: Shortness of Breath Last Admin: 12/14/17 07:41 Dose: 0.5 mg Calcium Acetate (Phoslo) 667 mg PO BIDCC [facility] Carvedilol (Coreg) 12.5 mg PO BID [facility] Last Admin: 12/14/17 09:34 Dose: Not Given Docusate Sodium (Colace) 100 mg PO TID [facility] Last Admin: 12/14/17 09:35 Dose: Not Given Epoetin Ant (Procrit) 10,000 unit IV TTS [facility] Last Admin: 12/14/17 11:44 Dose: 10,000 unit Epoetin Ant (Procrit) 2,000 u IV TTS [facility] Last Admin: 12/14/17 11:45 Dose: 2,000 u Hydralazine HCl (Apresoline) 100 mg PO Q8 [facility] Last Admin: 12/14/17 05:25 Dose: 100 mg Hydromorphone/Sodium Chloride (Dilaudid Leather Stripping Machine Operator) 3.6 mg IV Q4H PRN; Protocol PRN Reason: Pain, severe (8-10) Last Admin: 12/13/17 12:57 Dose: 3.6 mg Dextrose/Sodium Chloride (Dextrose 5%/0.45% Ns 1000 Ml) 1,000 mls @ 60 mls/hr IV .[id number] [facility] Last Admin: 12/14/17 08:52 Dose: 60 mls/hr Insulin Human Regular (Novolin R) 0 unit SC ACHS [facility] PRN Reason: Protocol Last Admin: 12/14/17 11:41 Dose: 1 units Montelukast Sodium (Singulair) 10 mg PO HS [facility] Last Admin: 12/13/17 21:55 Dose: 10 mg Morphine Sulfate (Morphine) 1 mg IVP Q4 PRN PRN Reason: Pain, severe (8-10) Pantoprazole Sodium (Protonix Ec Tab) 40 mg PO DAILY [facility] Last Admin: 12/14/17 09:28 Dose: 40 mg Paricalcitol (Zemplar) 2 mcg IV TTS [facility] Last Admin: 12/14/17 11:46 Dose: 2 mcg Rosuvastatin Calcium (Crestor) 10 mg PO HS [facility] Last Admin: 12/13/17 21:55 Dose: 10 mg Sevelamer Carbonate (Renvela) 800 mg PO TIDCC [facility] Last Admin: 12/14/17 11:41 Dose: 800 mg - Labs Labs: 12/14/17 06:28 12/14/17 06:27 PT 10.8 SECONDS (9.7-12.2) 12/12/17 11:49 INR 1.0 12/12/17 11:49 APTT 31 SECONDS (21-34) 12/12/17 11:49 - Constitutional Appears: Non-toxic Assessment and Plan - Assessment and Plan (Free Text) Assessment: 57 year old male with past medical history of renal cell cancer, NIDDM, HLD, HTN , ESRD on HD MWF, CHF with pacemaker placement, SHYANN is admitted for COPD exacerbation and possible nephrectomy scheduled for tomorrow Renal cell carcinoma 12/14: Now is POD#1, s/p L nephrectomy. Hgb is stable at this time. 12/13: Patient is S/P left robotic assisted radial nephrectomy. Currenlty being monitored in ICU He has a MICROFILM TECHNICIAN pump, labwork pending for tonight. ESRD on HD MWF 12/14: He was having HD today 12/13: He just had HD before surgery. Currently has a permacath. Dyspnea likely 2/2 COPD exacerbation or pulmonary edema 12/14: Remains on Bipap, follow CXRAYs 12/13: Currently on Bipap - will check another CXRAY for tommorow. - CXR on admission was unchanged from previous imagining which showed cardiomegaly and mild pulm vascular congestion - ProBNP elevated on admission but improved from previous admissions - Troponin were elevated on admission but are similar to what they have been on previous admission. Elevation likely due to CKD - EKG showed NSR with no ST changes. Unchanged from previous EKG - Dr. Pedraza spoke with patient's instrumental musician, Dr. Brown who states that patient has been cleared for surgery. He also stated that no need to trend troponins and ekg due hx of CKD -Will consult pulm, Dr. Klein -Leigh prn for SOB -Cotninue home med: Pulmicort and singulair CHF with pacemaker - Will continue home medications: Coreg 12.5 mg po bid, hydralazine 100 mg po q 8 - Will hold plavix/aspirin for procedure DM - Will hold home oral hypoglycemic medications for procedure - Accuchecks ACHS - ISS low dose as pt will be npo past midnight - hypoglycemic protocol - Hgb A1c 11/2017 was 6.6 HLD - Will continue statin therapy - Lipid panel on 11/2017 showed normal LDL and cholestrol. TG were 424. HDL 28 HTN 12/14: Systolic BPs in the 120s. - Continue home medication: coreg and hydralazine - will continue to monitor SHYANN - CPAP at night and during dialysis Prophyalxis - No oral AC for procedure tomorrow - SCDs - Protonix Attending/Attestation - Attestation I have personally seen and examined this patient.: Yes I have fully participated in the care of the patient.: Yes I have reviewed all pertinent clinical information, including history, physical exam and plan: Yes
--- NOTE | 2017-12-14 20:04 | CP.PCM.PN ---
Subjective - Date & Time of Evaluation Date of Evaluation: 12/14/17 Time of Evaluation: 20:03 - Subjective Subjective: pt is coco nd examined, follow up consult is dictated #[id number] s/p left radical nephrectomy s/p hd today, had auf about 3.5 lit Objective - Vital Signs/Intake and Output Vital Signs (last 24 hours): Temp Pulse Resp BP Pulse Ox 98.7 F 81 20 125/70 95 12/14/17 19:22 12/14/17 19:22 12/14/17 19:22 12/14/17 19:22 12/14/17 19:22 Intake and Output: 12/14/17 12/15/17 18:59 06:59 Intake Total 1600 Output Total 75 Balance 1525 - Medications Medications: Current Medications Acetaminophen (Tylenol 325mg Tab) 650 mg PO Q6 PRN PRN Reason: Fever >100.4 F Albuterol/Ipratropium (Duoneb 3 Mg/0.5 Mg (3 Ml) Ud) 3 ml INH RQ6 [facility] Last Admin: 12/14/17 13:29 Dose: 3 ml Aspirin (Aspirin Chewable) 81 mg PO DAILY [facility] Budesonide (Pulmicort Respules) 0.5 mg INH RQ12 PRN PRN Reason: Shortness of Breath Last Admin: 12/14/17 07:41 Dose: 0.5 mg Calcium Acetate (Phoslo) 667 mg PO BIDCC [facility] Last Admin: 12/14/17 17:11 Dose: 667 mg Carvedilol (Coreg) 12.5 mg PO BID [facility] Last Admin: 12/14/17 17:11 Dose: 12.5 mg Docusate Sodium (Colace) 100 mg PO TID [facility] Last Admin: 12/14/17 17:13 Dose: Not Given Epoetin Ant (Procrit) 10,000 unit IV TTS [facility] Last Admin: 12/14/17 11:44 Dose: 10,000 unit Epoetin Ant (Procrit) 2,000 u IV TTS [facility] Last Admin: 12/14/17 11:45 Dose: 2,000 u Hydralazine HCl (Apresoline) 100 mg PO Q8 [facility] Last Admin: 12/14/17 14:14 Dose: Not Given Hydromorphone/Sodium Chloride (Dilaudid Spanish Interpreter) 3.6 mg IV Q4H PRN; Protocol PRN Reason: Pain, severe (8-10) Last Admin: 12/13/17 12:57 Dose: 3.6 mg Dextrose/Sodium Chloride (Dextrose 5%/0.45% Ns 1000 Ml) 1,000 mls @ 60 mls/hr IV .[id number] [facility] Last Admin: 12/14/17 08:52 Dose: 60 mls/hr Insulin Human Regular (Novolin R) 0 unit SC ACHS [facility] PRN Reason: Protocol Last Admin: 12/14/17 17:11 Dose: 2 units Montelukast Sodium (Singulair) 10 mg PO HS [facility] Last Admin: 12/13/17 21:55 Dose: 10 mg Morphine Sulfate (Morphine) 1 mg IVP Q4 PRN PRN Reason: Pain, severe (8-10) Pantoprazole Sodium (Protonix Ec Tab) 40 mg PO DAILY [facility] Last Admin: 12/14/17 09:28 Dose: 40 mg Paricalcitol (Zemplar) 2 mcg IV TTS [facility] Last Admin: 12/14/17 11:46 Dose: 2 mcg Rosuvastatin Calcium (Crestor) 10 mg PO HS [facility] Last Admin: 12/13/17 21:55 Dose: 10 mg Sevelamer Carbonate (Renvela) 800 mg PO TIDCC [facility] Last Admin: 12/14/17 17:12 Dose: 800 mg - Labs Labs: 12/14/17 06:28 12/14/17 06:27 PT 10.8 SECONDS (9.7-12.2) 12/12/17 11:49 INR 1.0 12/12/17 11:49 APTT 31 SECONDS (21-34) 12/12/17 11:49
[2017-12-15] MEDS: Albuterol-Ipratrop 3 mg / 0.5 (3 ml) UD INH SCH ×4 (01:03→19:23)
--- NOTE | 2017-12-15 02:22 | PN ---
DATE: 12/14/2017 FOLLOWUP RENAL CONSULTATION SUBJECTIVE: The patient is located in room 350, bed A. REQUESTED BY: Asael Ackerman DO REASON FOR FOLLOWUP: End-stage renal disease, left renal mass, status post radical left nephrectomy robotic, and continuation of hemodialysis. HISTORY OF PRESENT ILLNESS: Mr. Mehta is a 57-year-old obese [place] male with a past medical history significant for longstanding hypertension, diabetes, obstructive sleep apnea, asthma, CHF, poor LV function, ejection fraction about 20% to 25%, status post AICD placement, end-stage renal disease, on hemodialysis three times a week Wednesday, Wednesday, and Wednesday with left renal mass who was admitted for robotic nephrectomy. The patient underwent surgery yesterday of radical left nephrectomy. Subsequently, the patient was transferred to ICU for postop monitoring. The patient is complaining of slight pain at the surgery site. Denies any shortness of breath. Denies any nausea, vomiting, diarrhea. Denies any fever or cough. The patient underwent hemodialysis this morning, had ultrafiltration about 3.5 liters. The patient is not in distress. PHYSICAL EXAMINATION: VITAL SIGNS: As follows: Blood pressure 126/62, pulse 73, respirations 17, temperature 97.7, saturation 98%. Height 5 feet 6 inches, weight is 301 pounds. GENERAL: Mr. Mehta is a 57-year-old obese male, moderately built, moderately nourished, not in distress, sitting at the edge of the bed. HEENT: Pupils normal and reactive to light and accommodation. Conjunctivae pink. Sclerae anicteric. Tongue is moist. Trachea is midline. LUNGS: Symmetric on both sides. Bilateral breath sounds present. Occasional basal crackles on the left side. CVS: [place] at the fifth intercostal space, midclavicular line. S1, S2 audible. No murmur or gallop. The patient has AICD placement of the left subclavian region. ABDOMEN: Normal in appearance. Soft, tympanic. No guarding. No rigidity. No hepatosplenomegaly. LAUNDRY PRICING CLERK: The patient is alert, awake, and oriented x3. Nonfocal neuro examination. Cranial nerves II through XII grossly intact. Sensory and motor system is within normal limits. EXTREMITIES: No cyanosis, no clubbing, no edema. The patient has slight swelling at the dorsum of the left wrist. CURRENT MEDICATIONS: His current medications include as follows, hydralazine 100 mg p.o. every 8 hours, aspirin 81 mg daily, Colace 100 mg p.o. t.i.d., Coreg 12.5 mg p.o. b.i.d., Crestor 10 mg at bedtime, D5 half normal saline 60 mL, Dilaudid mg IV every 4 hours p.r.n., DuoNeb inhaler, morphine 1 mg IV every 4 hours, Novolin R for sliding scale, PhosLo 667 mg p.o. b.i.d., Epogen 12,000 units three times a week, Protonix 40 mg p.o. daily, Pulmicort, Renvela, Singulair, Tylenol, and Zemplar. LABORATORY DATA: Include as follows: As of 12/14/2017, WBC 9, hemoglobin 9.5, hematocrit is 28, platelets 132. Sodium 137, potassium is 4, chloride 94, CO2 of 26, BUN 57, creatinine 6.9, glucose 159, calcium 7.8, phosphorus 8.9, magnesium 1.7. Total bili 0.6, AST 44, ALT 79, alkaline phosphatase 55, total protein 6.4, albumin is 3.6. IMPRESSION: In summary, Mr. Mehta is a 57-year-old obese male with hypertension, diabetes, end-stage renal disease, left renal mass, congestive heart failure, cardiomyopathy, status post automatic implantable cardioverter defibrillator placement, nephrotic range proteinuria, obstructive sleep apnea, asthma who was admitted for robotic left nephrectomy. The patient underwent surgery yesterday, and also underwent hemodialysis on Wednesday, and also hemodialysis today with ultrafiltration about 3.5 liters. 1. End-stage renal disease. Continue hemodialysis three times a week. The patient underwent hemodialysis this afternoon, had ultrafiltration about 3.5 liters. 2. Hypertension. Blood pressure is stable. Continue his current medications, Coreg and hydralazine. 3. Anemia secondary to renal failure. Continue Epogen, and we will add Nephrocaps 1 tablet p.o. daily. 4. Hyperphosphatemia, secondary to hyperparathyroidism. Continue Renvela and PhosLo. Continue to monitor phosphorus level. 5. Status post radical nephrectomy left side. Follow up with the pathology report. We will follow with you. Thank you for allowing me to participate in your patient's care. Talya Vogel MD
[2017-12-15 06:13] LABS: BASO % 0.3 % (0.0-2.0); EOS # 0.1 K/uL (0.0-0.7); HEMOGLOBIN 9.4 g/dL (12.0-18.0); LYMPH # 0.5 K/uL (1.0-4.3); LYMPH % 6.7 % (20.0-40.0); MEAN CELL VOLUME 89.2 fL (80.0-94.0); MEAN CORPUSCULAR HEMOGLOBIN 29.4 pg (27.0-31.0); MEAN PLATELET VOLUME 8.7 fL (7.2-11.7); MONO % 13.2 % (0.0-10.0); NEUT # 5.8 K/uL (1.8-7.0); NEUT % 78.8 % (50.0-75.0); PLATELET COUNT 136 K/uL (130-400); RED CELL DISTRIBUTION WIDTH 17.4 % (11.5-14.5); WHITE BLOOD COUNT 7.4 K/uL (4.8-10.8)
[2017-12-15 06:43] LABS: ALB/GLOB RATIO 1.3 (1.0-2.1); ALBUMIN 3.8 g/dL (3.5-5.0); CALCIUM 8.4 mg/dl (8.6-10.4)
[2017-12-15] MEDS: Budesonide 0.5 mg/2 ml Inhal Susp UD INH PRN (07:14)
--- NOTE | 2017-12-15 08:21 | CON ---
DATE: 12/13/2017 Urology consultation is requested by Dr. Pedraza. Urology consultation filled by Dr. Sydney Bartlett. REASON FOR CONSULTATION: Right renal tumor. The patient is a 57-year-old male with right renal tumor. The patient is in otherwise fair health. The patient has history of renal failure. The patient has been on dialysis. The patient was found to have a renal tumor. On both CT scan and renal ultrasound, the renal tumor was noted to be enhancing and was solid consistent with renal carcinoma. The patient is now admitted for further surgery. The patient voids small amount. He voids several ounces per day. The patient reports no hematuria. No dysuria. Occasional back pain. Occasional abdominal pain. The patient was admitted yesterday, 12/13/2017. The patient had shortness of breath. He has received pulmonary care and consultation during this admission. The patient has history of diabetes. History of hypertension. The patient has history of congestive heart failure. The patient has history of asthma as well. Nephrology consultation has been obtained as well. See attached reports. The patient reports that he felt yesterday has improved through the hospitalization. The patient reports no chest pain. He has had recent cardiology care and consultation and clearance for his surgery. The patient does not smoke. He previously drank alcohol. The patient is not working. He had disability due to asthma for approximately the past 10 years. PHYSICAL EXAMINATION: GENERAL: Patient is a well-developed, well-nourished, obese male appearing stated age. The patient is awake and alert. ABDOMEN: Soft, distended, nontender. No mass or organomegaly. BACK: No CVA tenderness. GENITALIA: Without inflammation. LABORATORY DATA: Reviewed. The patient had dialysis yesterday in preparation for the surgery. The patient also had respiratory therapy as well. IMPRESSION: A 69-year-old male with left renal tumor. Renal failure, on hemodialysis. CHF. Diabetes. Asthma. Hypertension. RECOMMENDATIONS AND PLAN: Continue therapy as per nephrology and pulmonary oracle iam consultant. For surgery, namely, robotic-assisted laparoscopic left nephrectomy. Nature of surgery has been discussed with the patient. Further therapy to follow according to the patient's clinical course. Sydney Bartlett MD
[2017-12-15] MEDS: (Novolin R) Insulin Human Regular 100 units/ml vial SC SCH ×4 (08:30→22:02)
--- NOTE | 2017-12-15 08:35 | OP ---
PROCEDURE DATE: 12/13/2017 PREOPERATIVE DIAGNOSIS: Left renal mass and renal failure, the patient Is on dialysis. POSTOPERATIVE DIAGNOSIS: Left renal mass and renal failure, the patient is on dialysis. PROCEDURE PERFORMED: Left radicle nephrectomy, robotic-assisted laparoscopy. SURGEON: Audi Castro MD. MEAT COUNTER WORKER: Sydney Bartlett MD COMPLICATIONS: None. ANESTHESIA: General. ESTIMATED BLOOD LOSS: 50 mL. Laps and instrument counts correct. DESCRIPTION OF PROCEDURE: The patient was taken to the OR, placed in supine position. After analgesic was obtained, the patient was padded and all the pressure points were padded and table was slightly flexed and the patient was prepped and draped in usual manner. Then port was placed first. An 8-mm camera port was placed. Under direct vision, all other three 8-mm robotic port and one 15 orthodontic assistant port were placed and then robot was docked and then the left colon was mobilized and kidney was identified and kidney was mobilized superiorly off the spleen and inferiorly and immediately gonadal vein was identified and then once the gonadal vein was identified, that was used to find the hilum. Once the hilum was found and then the kidney was and adrenal was spared and then artery and vein were completely up superiorly and inferiorly. Then staple was placed and en-bloc stapling was done. Then superiorly the kidney was freed further and laterally and gonadal was mobilized off. Ureter was taken. At that point, the kidney was completely . It was placed in a bag. Then hemostasis was obtained. There was no bleeding seen and we removed the bag and made the incision slightly larger with a 15-mm port and specimen was removed. Fascia was closed using #1 PDS and skin was reapproximated with staple. Marcaine and lidocaine were used, and the patient tolerated the procedure well. There were no complications. Audi Castro MD
[2017-12-15 08:53] LABS: ANISOCYTOSIS SLIGHT; BANDS 2 % (0-2); HYPOCHROMIC SLIGHT; LYMPHOCYTE 8 % (20-40); MONOCYTE 14 % (0-10); NEUTROPHIL 76 % (50-75); PLATELET ESTIMATE NORMAL (NORMAL); POIKILOCYTOSIS SLIGHT; TOTAL CELLS COUNTED 100
[2017-12-15 08:54] LABS: LARGE PLATELETS PRESENT
[2017-12-15] MEDS: Multivitamin Vitamin B Complex (Nephro-Vite) Tab PO SCH (09:00)
[2017-12-15] MEDS ORDERED: (Novolin 70/30) NPH/Regular 70/30 Units/ml 10 ml vial SC ONE (09:32)
--- NOTE | 2017-12-15 09:36 | CP.PCM.PN ---
<Pamela Garcia - Last Filed: 12/15/17 14:20> Subjective - Date & Time of Evaluation Date of Evaluation: 12/15/17 Time of Evaluation: 07:00 - Subjective Subjective: Medicine Progress Note: Patient was seen and examined at bedside in the AM. Patient states he did pass flatus this morning but has not had a bowel movement. Patient states he continues to have pain throughout his abdomen. Patient states he had solid food for the first time this morning and was able to eat it most of his breakfast. Objective - Vital Signs/Intake and Output Vital Signs (last 24 hours): Temp Pulse Resp BP Pulse Ox 98.6 F 96 H 20 163/86 H 95 12/15/17 07:51 12/15/17 07:51 12/15/17 07:51 12/15/17 07:51 12/15/17 07:51 Intake and Output: 12/15/17 12/15/17 06:59 18:59 Intake Total 200 Output Total 0 Balance 200 - Medications Medications: Current Medications Acetaminophen (Tylenol 325mg Tab) 650 mg PO Q6 PRN PRN Reason: Fever >100.4 F Albuterol/Ipratropium (Duoneb 3 Mg/0.5 Mg (3 Ml) Ud) 3 ml INH RQ6 [facility] Last Admin: 12/15/17 07:14 Dose: 3 ml Aspirin (Aspirin Chewable) 81 mg PO DAILY [facility] Budesonide (Pulmicort Respules) 0.5 mg INH RQ12 PRN PRN Reason: Shortness of Breath Last Admin: 12/15/17 07:14 Dose: 0.5 mg Calcium Acetate (Phoslo) 667 mg PO BIDCC [facility] Last Admin: 12/15/17 09:00 Dose: 667 mg Carvedilol (Coreg) 12.5 mg PO BID [facility] Last Admin: 12/14/17 17:11 Dose: 12.5 mg Docusate Sodium (Colace) 100 mg PO TID [facility] Last Admin: 12/14/17 17:13 Dose: Not Given Epoetin Ant (Procrit) 10,000 unit IV TTS [facility] Last Admin: 12/14/17 11:44 Dose: 10,000 unit Epoetin Ant (Procrit) 2,000 u IV TTS [facility] Last Admin: 12/14/17 11:45 Dose: 2,000 u Hydralazine HCl (Apresoline) 100 mg PO Q8 [facility] Last Admin: 12/15/17 08:30 Dose: 100 mg Hydromorphone/Sodium Chloride (Dilaudid Buffet Manager) 3.6 mg IV Q4H PRN; Protocol PRN Reason: Pain, severe (8-10) Last Admin: 12/14/17 20:36 Dose: 3.6 mg Insulin Human Isoph/Insulin Regular (Novolin 70/30 (70/30 Units/Ml) 10 Ml) 7 units SC ACB [facility] Insulin Human Isoph/Insulin Regular (Novolin 70/30 (70/30 Units/Ml) 10 Ml) 3 units SC ACBD [facility] Montelukast Sodium (Singulair) 10 mg PO HS [facility] Last Admin: 12/14/17 22:15 Dose: Not Given Morphine Sulfate (Morphine) 1 mg IVP Q4 PRN PRN Reason: Pain, severe (8-10) Pantoprazole Sodium (Protonix Ec Tab) 40 mg PO DAILY [facility] Last Admin: 12/14/17 09:28 Dose: 40 mg Paricalcitol (Zemplar) 2 mcg IV TTS [facility] Last Admin: 12/14/17 11:46 Dose: 2 mcg Rosuvastatin Calcium (Crestor) 10 mg PO HS [facility] Last Admin: 12/14/17 22:13 Dose: Not Given Sevelamer Carbonate (Renvela) 800 mg PO TIDCC [facility] Last Admin: 12/15/17 09:00 Dose: 800 mg Vitamin B Complex/Vit C/Folic Acid (Nephro-Berry) 1 tab PO 0800 [facility] Last Admin: 12/15/17 09:00 Dose: 1 tab - Labs Labs: 12/15/17 06:07 12/15/17 06:07 PT 10.8 SECONDS (9.7-12.2) 12/12/17 11:49 INR 1.0 12/12/17 11:49 APTT 31 SECONDS (21-34) 12/12/17 11:49 - Constitutional Appears: No Acute Distress - Head Exam Head Exam: ATRAUMATIC, NORMAL INSPECTION - Eye Exam Eye Exam: EOMI, Normal appearance - ENT Exam ENT Exam: Mucous Membranes Moist - Respiratory Exam Respiratory Exam: Clear to Ausculation Bilateral, NORMAL BREATHING PATTERN - Cardiovascular Exam Cardiovascular Exam: REGULAR RHYTHM, +S1, +S2 - GI/Abdominal Exam GI & Abdominal Exam: Firm, Tenderness, Hypoactive Bowel Sounds Additional comments: obese abdomen; Dressing is clean/dry/intact - Extremities Exam Extremities Exam: Normal Inspection. absent: Pedal Edema, Tenderness - Neurological Exam Neurological Exam: Alert, Awake, Oriented x3 - Psychiatric Exam Psychiatric exam: Normal Affect - Skin Skin Exam: Normal Color Assessment and Plan - Assessment and Plan (Free Text) Assessment: 57 year old male with past medical history of renal cell cancer, NIDDM, HLD, HTN , ESRD on HD MWF, CHF with pacemaker placement, SHYANN is admitted for COPD exacerbation and nephrectomy. Renal cell carcinoma - s/p left robot-assisted radical nephrectomy with Dr. Bartlett 12/13/17 - Medications: Renvela 800mg PO TIDCC, Procit with dialysis, Phoslo added - Morphine 1mg IV q4prn History of ESRD on HD MWF - Nephrology Consult: Dr. Vogel --> help appreciated - Continue home medication: Renvela, procrit MWF COPD Exacerbation - resolved - CXR on admission was unchanged from previous imagining which showed cardiomegaly and mild pulm vascular congestion - ProBNP elevated on admission but improved from previous admissions - Troponin were elevated on admission but are similar to what they have been on previous admission. Elevation likely due to CKD - EKG showed NSR with no ST changes. 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 - Pulm consult: Dr. Klein --> help appreciated - Medications: * Duoneb q6h [facility] for SOB * Cotninue home med: Pulmicort and singulair * Pt received solumedrol 80 IVP in ed * CPAP at night History of SHYANN - CPAP at night and during dialysis - Patient will follow up with Dr. Klein as an out patient for CPAP at home History of CHF with pacemaker - Will continue home medications: * Coreg 12.5 mg po bid, * hydralazine 100 mg po q 8 * aspirin 81mg po daily History of Thoracic Aneursym - CT Chest: Mild ascending thoracic aneurysm 4.3 cm greatest dimension terminating at the anterior arch. - Will need to follow up in 6-12 months History of DM - Will hold home oral hypoglycemic medications - Accuchecks ACHS - Novolin 70/30 7 units with breakfast; Novolin 70/30 3 units with dinner - hypoglycemic protocol - Hgb A1c 11/2017 was 6.6 History of HLD - Will continue statin therapy - Lipid panel on 11/2017 showed normal LDL and cholestrol. TG were 424. HDL 28 History of HTN - Continue home medication: coreg and hydralazine - will continue to monitor Prophyalxis - VTE c/i s/p surgery - will resume during scheduled dialysis - SCDs - Protonix - Dulcolax - Colace 100mg TID - Renal Diet/Prune juice with meals Case discussed with Dr. Meka Garcia PGY-1 <Asael Ackerman - Last Filed: 12/15/17 14:56> Objective - Vital Signs/Intake and Output Vital Signs (last 24 hours): Temp Pulse Resp BP Pulse Ox 98.6 F 87 20 120/77 95 12/15/17 07:51 12/15/17 14:02 12/15/17 14:02 12/15/17 14:02 12/15/17 07:51 Intake and Output: 12/15/17 12/15/17 06:59 18:59 Intake Total 200 480 Output Total 0 Balance 200 480 - Medications Medications: Current Medications Acetaminophen (Tylenol 325mg Tab) 650 mg PO Q6 PRN PRN Reason: Fever >100.4 F Albuterol/Ipratropium (Duoneb 3 Mg/0.5 Mg (3 Ml) Ud) 3 ml INH RQ6 [facility] Last Admin: 12/15/17 13:16 Dose: Not Given Aspirin (Aspirin Chewable) 81 mg PO DAILY [facility] Last Admin: 12/15/17 10:00 Dose: 81 mg Budesonide (Pulmicort Respules) 0.5 mg INH RQ12 PRN PRN Reason: Shortness of Breath Last Admin: 12/15/17 07:14 Dose: 0.5 mg [facility] Last Admin: 12/15/17 09:00 Dose: 667 mg Carvedilol (Coreg) 12.5 mg PO BID [facility] Last Admin: 12/15/17 10:01 Dose: 12.5 mg Docusate Sodium (Colace) 100 mg PO TID [facility] Last Admin: 12/15/17 14:08 Dose: 100 mg Epoetin Ant (Procrit) 10,000 unit IV TTS [facility] Last Admin: 12/14/17 11:44 Dose: 10,000 unit Epoetin Ant (Procrit) 2,000 u IV TTS [facility] Last Admin: 12/14/17 11:45 Dose: 2,000 u Guaifenesin/Dextromethorphan (Robitussin Dm) 5 ml PO Q4H PRN PRN Reason: Cough Hydralazine HCl (Apresoline) 100 mg PO Q8 [facility] Last Admin: 12/15/17 14:08 Dose: 100 mg Insulin Human Isoph/Insulin Regular (Novolin 70/30 (70/30 Units/Ml) 10 Ml) 7 units SC ACB [facility] Insulin Human Isoph/Insulin Regular (Novolin 70/30 (70/30 Units/Ml) 10 Ml) 3 units SC ACBD [facility] Insulin Human Regular (Novolin R) 0 unit SC ACHS [facility] PRN Reason: Protocol Last Admin: 12/15/17 12:06 Dose: Not Given Montelukast Sodium (Singulair) 10 mg PO HS [facility] Last Admin: 12/14/17 22:15 Dose: Not Given Morphine Sulfate (Morphine) 1 mg IVP Q4 PRN PRN Reason: Pain, severe (8-10) Last Admin: 12/15/17 14:07 Dose: 1 mg Pantoprazole Sodium (Protonix Ec Tab) 40 mg PO DAILY [facility] Last Admin: 12/15/17 09:59 Dose: 40 mg Paricalcitol (Zemplar) 2 mcg IV TTS [facility] Last Admin: 12/14/17 11:46 Dose: 2 mcg Rosuvastatin Calcium (Crestor) 10 mg PO HS [facility] Last Admin: 12/14/17 22:13 Dose: Not Given Sevelamer Carbonate (Renvela) 800 mg PO TIDCC [facility] Last Admin: 12/15/17 12:36 Dose: Not Given Vitamin B Complex/Vit C/Folic Acid (Nephro-Berry) 1 tab PO 0800 [facility] Last Admin: 12/15/17 09:00 Dose: 1 tab - Labs Labs: 12/15/17 06:07 12/15/17 06:07 PT 10.8 SECONDS (9.7-12.2) 12/12/17 11:49 INR 1.0 12/12/17 11:49 APTT 31 SECONDS (21-34) 12/12/17 11:49 Attending/Attestation - Attestation I have personally seen and examined this patient.: Yes I have fully participated in the care of the patient.: Yes I have reviewed all pertinent clinical information, including history, physical exam and plan: Yes Notes (Text): 12/15/17 14:54 Medical attending: Patient was seen and examined by me as well. Agree with the above note by the resident. Please note I did not have a chance to thouroughly examine the patient since he was sleeping and was upset that I came and saw him and asked for me to leave. He had not yet had HD when I saw him. He has a [employer] pump for pain. Asael Ackerman
[2017-12-15] MEDS: Pantoprazole 40 mg EC Tab PO SCH (09:59)
--- NOTE | 2017-12-15 10:45 | RAD ---
HISTORY: shortness of breath COMPARISON: Chest radiograph dated 12/12/2017. FINDINGS: LUNGS: Prominence of pulmonary vasculature may be secondary to AP technique and/or pulmonary vascular congestion. PLEURA: No significant pleural effusion identified, no pneumothorax apparent. CARDIOVASCULAR: Left subclavian access AICD/ pacemaker redemonstrated. Cardiomediastinal silhouette stably enlarged. OSSEOUS STRUCTURES: Unchanged. VISUALIZED UPPER ABDOMEN: Normal. OTHER FINDINGS: Right internal jugular access tunneled hemodialysis catheter, unchanged. . IMPRESSION: Prominence of the pulmonary vasculature may be secondary to AP technique and/or pulmonary vascular congestion. No focal consolidation or pleural effusion.
[2017-12-15] MEDS ORDERED: guaiFENesin DM 100 mg-10 mg/5 ml UD PO PRN (14:27)
--- NOTE | 2017-12-15 16:28 | CP.PCM.PN ---
Subjective - Date & Time of Evaluation Date of Evaluation: 12/15/17 Time of Evaluation: 09:00 - Subjective Subjective: POD#2 s/p robotic assisted radical nephrectomy. Patient seen and examined after PT, seated up in bed. Patient states pain is improving, but states he cannot sleep at night as his cough has become productive of brown mucus that "chokes" him when he tries to cough it up. 1. Cough Patient is afebrile without leukocytosis (WBC = 7.4), but will obtain x-ray in the AM. Patient not currently using incentive spirometry; Nursing asked to provide bedside spirometer. Start Robitussin 200 mg/5mL q6H. Continue PT and early ambulation protocol for atelectasis prevention. 2. COPD/SHYANN Patient saturating well at 95% on room air; Patient using CPAP at night, but states he takes it off due to cough. Continue duonebs, pulmicort 0.5 mg q2H and singulair 10 mg PO HS. bipap at night Objective - Vital Signs/Intake and Output Vital Signs (last 24 hours): Temp Pulse Resp BP Pulse Ox 98.1 F 71 20 121/70 95 12/15/17 15:30 12/15/17 15:30 12/15/17 15:30 12/15/17 15:30 12/15/17 15:30 Intake and Output: 12/15/17 12/15/17 06:59 18:59 Intake Total 200 480 Output Total 0 Balance 200 480 - Medications Medications: Current Medications Acetaminophen (Tylenol 325mg Tab) 650 mg PO Q6 PRN PRN Reason: Fever >100.4 F Albuterol/Ipratropium (Duoneb 3 Mg/0.5 Mg (3 Ml) Ud) 3 ml INH RQ6 [facility] Last Admin: 12/15/17 13:16 Dose: Not Given Aspirin (Aspirin Chewable) 81 mg PO DAILY [facility] Last Admin: 12/15/17 10:00 Dose: 81 mg Budesonide (Pulmicort Respules) 0.5 mg INH RQ12 PRN PRN Reason: Shortness of Breath Last Admin: 12/15/17 07:14 Dose: 0.5 mg Calcium Acetate (Phoslo) 667 mg PO BIDCC [facility] Last Admin: 12/15/17 09:00 Dose: 667 mg Carvedilol (Coreg) 12.5 mg PO BID [facility] Last Admin: 12/15/17 10:01 Dose: 12.5 mg Docusate Sodium (Colace) 100 mg PO TID [facility] Last Admin: 12/15/17 14:08 Dose: 100 mg Epoetin Ant (Procrit) 10,000 unit IV TTS [facility] Last Admin: 12/14/17 11:44 Dose: 10,000 unit Epoetin Ant (Procrit) 2,000 u IV TTS [facility] Last Admin: 12/14/17 11:45 Dose: 2,000 u Guaifenesin/Dextromethorphan (Robitussin Dm) 5 ml PO Q4H PRN PRN Reason: Cough Hydralazine HCl (Apresoline) 100 mg PO Q8 [facility] Last Admin: 12/15/17 14:08 Dose: 100 mg Insulin Human Isoph/Insulin Regular (Novolin 70/30 (70/30 Units/Ml) 10 Ml) 7 units SC ACB [facility] Insulin Human Isoph/Insulin Regular (Novolin 70/30 (70/30 Units/Ml) 10 Ml) 3 units SC ACBD [facility] Insulin Human Regular (Novolin R) 0 unit SC ACHS [facility] PRN Reason: Protocol Last Admin: 12/15/17 12:06 Dose: Not Given Montelukast Sodium (Singulair) 10 mg PO [facility] Last Admin: 12/14/17 22:15 Dose: Not Given Morphine Sulfate (Morphine) 1 mg IVP Q4 PRN PRN Reason: Pain, severe (8-10) Last Admin: 12/15/17 14:07 Dose: 1 mg Pantoprazole Sodium (Protonix Ec Tab) 40 mg PO DAILY [facility] Last Admin: 12/15/17 09:59 Dose: 40 mg Paricalcitol (Zemplar) 2 mcg IV TTS [facility] Last Admin: 12/14/17 11:46 Dose: 2 mcg Rosuvastatin Calcium (Crestor) 10 mg PO HS [facility] Last Admin: 12/14/17 22:13 Dose: Not Given Sevelamer Carbonate (Renvela) 800 mg PO TIDCC [facility] Last Admin: 12/15/17 12:36 Dose: Not Given Vitamin B Complex/Vit C/Folic Acid (Nephro-Berry) 1 tab PO 0800 [facility] Last Admin: 12/15/17 09:00 Dose: 1 tab - Labs Labs: 12/15/17 06:07 12/15/17 06:07 PT 10.8 SECONDS (9.7-12.2) 12/12/17 11:49 INR 1.0 12/12/17 11:49 APTT 31 SECONDS (21-34) 12/12/17 11:49 Assessment and Plan (1) Asthma Status: Chronic (2) Obstructive sleep apnea Status: Chronic (3) ESRD (end stage renal disease) on dialysis Status: Chronic
--- NOTE | 2017-12-15 16:32 | CP.PCM.PN ---
Subjective - Date & Time of Evaluation Date of Evaluation: 12/15/17 Time of Evaluation: 16:31 - Subjective Subjective: pt is seen and examined, follow up consult is dictated #[id number] for hd in am Objective - Vital Signs/Intake and Output Vital Signs (last 24 hours): Temp Pulse Resp BP Pulse Ox 98.1 F 71 20 121/70 95 12/15/17 15:30 12/15/17 15:30 12/15/17 15:30 12/15/17 15:30 12/15/17 15:30 Intake and Output: 12/15/17 12/15/17 06:59 18:59 Intake Total 200 480 Output Total 0 Balance 200 480 - Medications Medications: Current Medications Acetaminophen (Tylenol 325mg Tab) 650 mg PO Q6 PRN PRN Reason: Fever >100.4 F Albuterol/Ipratropium (Duoneb 3 Mg/0.5 Mg (3 Ml) Ud) 3 ml INH RQ6 [facility] Last Admin: 12/15/17 13:16 Dose: Not Given Aspirin (Aspirin Chewable) 81 mg PO DAILY [facility] Last Admin: 12/15/17 10:00 Dose: 81 mg Budesonide (Pulmicort Respules) 0.5 mg INH RQ12 PRN PRN Reason: Shortness of Breath Last Admin: 12/15/17 07:14 Dose: 0.5 mg Calcium Acetate (Phoslo) 667 mg PO BIDCC [facility] Last Admin: 12/15/17 09:00 Dose: 667 mg Carvedilol (Coreg) 12.5 mg PO BID [facility] Last Admin: 12/15/17 10:01 Dose: 12.5 mg Docusate Sodium (Colace) 100 mg PO TID [facility] Last Admin: 12/15/17 14:08 Dose: 100 mg Epoetin Ant (Procrit) 10,000 unit IV TTS [facility] Last Admin: 12/14/17 11:44 Dose: 10,000 unit Epoetin Ant (Procrit) 2,000 u IV TTS [facility] Last Admin: 12/14/17 11:45 Dose: 2,000 u Guaifenesin/Dextromethorphan (Robitussin Dm) 5 ml PO Q4H PRN PRN Reason: Cough Hydralazine HCl (Apresoline) 100 mg PO Q8 [facility] Last Admin: 12/15/17 14:08 Dose: 100 mg Insulin Human Isoph/Insulin Regular (Novolin 70/30 (70/30 Units/Ml) 10 Ml) 7 units SC ACB [facility] Insulin Human Isoph/Insulin Regular (Novolin 70/30 (70/30 Units/Ml) 10 Ml) 3 units SC ACBD [facility] Insulin Human Regular (Novolin R) 0 unit SC ACHS [facility] PRN Reason: Protocol Last Admin: 12/15/17 12:06 Dose: Not Given Montelukast Sodium (Singulair) 10 mg PO HS [facility] Last Admin: 12/14/17 22:15 Dose: Not Given Morphine Sulfate (Morphine) 1 mg IVP Q4 PRN PRN Reason: Pain, severe (8-10) Last Admin: 12/15/17 14:07 Dose: 1 mg Pantoprazole Sodium (Protonix Ec Tab) 40 mg PO DAILY [facility] Last Admin: 12/15/17 09:59 Dose: 40 mg Paricalcitol (Zemplar) 2 mcg IV TTS [facility] Last Admin: 12/14/17 11:46 Dose: 2 mcg Rosuvastatin Calcium (Crestor) 10 mg PO HS [facility] Last Admin: 12/14/17 22:13 Dose: Not Given Sevelamer Carbonate (Renvela) 800 mg PO TIDCC [facility] Last Admin: 12/15/17 12:36 Dose: Not Given Vitamin B Complex/Vit C/Folic Acid (Nephro-Berry) 1 tab PO 0800 [facility] Last Admin: 12/15/17 09:00 Dose: 1 tab - Labs Labs: 12/15/17 06:07 12/15/17 06:07 PT 10.8 SECONDS (9.7-12.2) 12/12/17 11:49 INR 1.0 12/12/17 11:49 APTT 31 SECONDS (21-34) 12/12/17 11:49
[2017-12-15] MEDS: (Novolin 70/30) NPH/Regular 70/30 Units/ml 10 ml vial SC SCH (18:10)
--- NOTE | 2017-12-15 22:37 | CARD ---
APPROVED REPORT EKG Measurement Heart [id number] [place] [id number] <Conclusion> Normal sinus rhythm Nonspecific T wave abnormality Prolonged QT Abnormal ECG
--- NOTE | 2017-12-15 22:58 | PCM.URO ---
Urology Progress Note - General General: No Complaints, Tolerating Diet - Subjective Abdominal Pain: Yes (much less) Flank Pain: Yes (mild) Nausea: No Vomiting: No Voiding Well: Yes Dysuria: No Hematuria: No Good Stream: Yes Dsypnea: Yes Chest Pain: No Fever & Chills: No Other: Had BM. Feeling better overall - Objective Lab Studies: Reviewed Lab Results Last 24 Hours: Laboratory Results - last 24 hr 12/15/17 12/15/17 12/15/17 06:07 06:07 08:17 WBC 7.4 RBC 3.20 L Hgb 9.4 L Hct 28.5 L MCV 89.2 MCH 29.4 MCHC 33.0 RDW 17.4 H Plt Count 136 MPV 8.7 Neut % (Auto) 78.8 H Lymph % (Auto) 6.7 L [place] % (Auto) 13.2 H Eos % (Auto) 1.0 Baso % (Auto) 0.3 Neut # (Auto) 5.8 Lymph # (Auto) 0.5 L [place] # (Auto) 1.0 H Eos # (Auto) 0.1 Baso # (Auto) 0.0 Neutrophils % (Manual) 76 H Band Neutrophils % 2 Lymphocytes % (Manual) 8 L Monocytes % (Manual) 14 H Platelet Estimate Normal Large Platelets Present Hypochromasia (manual) Slight Poikilocytosis (manual Slight Anisocytosis (manual) Slight Sodium 137 Potassium 3.9 Chloride 94 L Carbon Dioxide 28 Anion Gap 19 BUN 42 H Creatinine 6.9 H Est GFR ( Amer) 10 Est GFR (Non-Af Amer) 8 POC Glucose (mg/dL) 216 H Random Glucose 137 H Calcium 8.4 L Phosphorus 6.7 H Magnesium 1.8 Total Bilirubin 0.7 AST 32 ALT 37 Alkaline Phosphatase 56 Total Protein 6.6 Albumin 3.8 Globulin 2.8 Albumin/Globulin Ratio 1.3 12/15/17 21:28 WBC RBC Hgb Hct MCV MCH MCHC RDW Plt Count MPV Neut % (Auto) Lymph % (Auto) [place] % (Auto) Eos % (Auto) Baso % (Auto) Neut # (Auto) Lymph # (Auto) [place] # (Auto) Eos # (Auto) Baso # (Auto) Neutrophils % (Manual) Band Neutrophils % Lymphocytes % (Manual) Monocytes % (Manual) Platelet Estimate Large Platelets Hypochromasia (manual) Poikilocytosis (manual Anisocytosis (manual) Sodium Potassium Chloride Carbon Dioxide Anion Gap BUN Creatinine Est GFR ( Amer) Est GFR (Non-Af Amer) POC Glucose (mg/dL) 159 H Random Glucose Calcium Phosphorus Magnesium Total Bilirubin AST ALT Alkaline Phosphatase Total Protein Albumin Globulin Albumin/Globulin Ratio Intake & Output: Intake & Output 12/15/17 12/15/17 12/16/17 06:59 18:59 06:59 Intake Total 200 480 350 Output Total 0 Balance 200 480 350 Intake: Oral 200 480 350 Output: Stool 0 Other: # Voids Urine, Voided 1 2 1 # Bowel Movements 0 Vital Signs: Vital Signs - 24 hr 12/15/17 12/15/17 12/15/17 00:00 07:51 10:01 Temperature 98.3 F 98.6 F Pulse Rate 83 96 H Respiratory 20 20 Rate Blood Pressure 135/76 163/86 H 163/86 H O2 Sat by Pulse 99 95 Oximetry 12/15/17 12/15/17 12/15/17 14:02 15:30 18:08 Temperature 98.1 F Pulse Rate 87 71 Respiratory 20 20 Rate Blood Pressure 120/77 121/70 121/71 O2 Sat by Pulse 95 Oximetry - Physical Exam Abdominal Exam: Soft, Non-Tender. absent: Non-Distended Dressing: Dry, Intact Back: No CVA Tenderness Genitalia: Without Inflammation Extremities: Normal: Bilateral - Plan Pulmonary Toilet: Yes Ambulation - Out of Bed: Yes Intake & Output: Yes Additional Information: IMP: Progressing well. - Date & Time of Note Date: 12/15/17 Time: 12:35
[2017-12-16] MEDS: Albuterol-Ipratrop 3 mg / 0.5 (3 ml) UD INH SCH ×4 (01:08→19:52)
--- NOTE | 2017-12-16 01:57 | PN ---
DATE: 12/15/2017 FOLLOWUP RENAL CONSULTATION LOCATION: The patient is located in room 350, bed A. REQUESTED BY: Asael Ackerman DO REASON FOR RENAL CONSULTATION: End-stage renal disease, for continuation of the hemodialysis, status post left radical nephrectomy. SUBJECTIVE: Mr. Mehta is a 57-year-old elderly obese male with a past medical history significant for longstanding hypertension, diabetes, CHF, cardiomyopathy, status post AICD placement, end-stage renal disease, nephrotic range proteinuria, left renal mass, who underwent laparoscopic nephrectomy on Wednesday, radical and robotic surgery. The patient is complaining of slight abdominal pain. Denies any chest pain, palpitation. Denies any nausea, vomiting, diarrhea. No fever. The patient has complaints of cough. PHYSICAL EXAMINATION: VITAL SIGNS: As follows: Blood pressure 121/70, pulse 71, respirations 20, temperature 98.1, saturation 95%. Height 5 feet 6 inches, weight is 301 pounds. GENERAL: Mr. Mehta is a 57-year-old obese male, well built, well nourished, not in distress. HEENT: Pupils normal and reactive to light and accommodation. Conjunctivae pink. Sclerae anicteric. Tongue is moist. Trachea is midline. LUNGS: Symmetric on both sides. Bilateral breath sounds present. Clear to auscultation. CVS: Burr at the fifth intercostal space, midclavicular line. S1, S2 audible. No murmur or gallop. ABDOMEN: Normal in appearance. Soft, tympanic. No guarding. No rigidity. No hepatosplenomegaly. AUTOMATED LOGISTICS SPECIALIST: The patient is alert, awake, and oriented x3. Nonfocal neuro examination. Cranial nerves II through XII grossly intact. Sensory and motor system is within normal limits. EXTREMITIES: No cyanosis, no clubbing, no edema. SKIN: The patient has a dressing to the laparoscopic site. CURRENT MEDICATIONS: His current medications include as follows: Hydralazine 100 mg p.o. every 8 hours; aspirin 81 mg daily; Colace 100 mg p.o. daily; Coreg mg p.o. t.i.d.; Crestor 10 mg; DuoNeb inhaler; morphine sulfate 1 mg IV every 4 hours p.r.n.; Nephro-Berry 1 tablet daily, Novolin 70/30, 7 units in the morning and 3 units in the evening and Novolin R for sliding scale sliding; calcium acetate 667 mg p.o. b.i.d.; Procrit units three times a week; Protonix 40 mg p.o. daily; Pulmicort 0.5 mg inhaler every 12 hours; Robitussin DM 5 mL p.o. every 4 hours; Singulair 10 mg p.o. at bedtime; Tylenol; and Zemplar. LABORATORY DATA: Include as follows: WBC 7.4, hemoglobin 9.4, hematocrit is 28.5, platelets 136. Sodium 137, potassium is 3.9, chloride 94, CO2 of 28, BUN now 42, creatinine 6.9, glucose 137, calcium 8.4, phosphorus 6.7, magnesium 1.8. Total bili 0.7, calcium 8.4, phosphorus 6.7, AST 32, ALT 34, alkaline phosphatase 56, total protein 6.6, albumin 3.8. IMPRESSION: In summary, Mr. Mehta is a 57-year-old obese male with history of hypertension, diabetes, asthma, obstructive sleep apnea, congestive heart failure, cardiomyopathy, status post automatic implantable cardioverter defibrillator placement, left renal mass, end-stage renal disease, on hemodialysis 3 times a week with left renal mass; underwent robotic radical nephrectomy on Wednesday; underwent hemodialysis yesterday and ultrafiltration about 3.5 liters. 1. End-stage renal disease. Continue hemodialysis three times a week. We will schedule for hemodialysis in a.m. if patient agrees. 2. Hypertension. Blood pressure is stable. Continue hydralazine and Coreg. 3. Anemia secondary to renal failure. 4. Status post radical left nephrectomy. The patient is resting comfortably. Continue analgesics as needed. Restrict fluids to one liter per day. Continue Nephro-Berry and Epogen. Thank you for allowing me to participate in your patient's care. Talya Vogel MD
[2017-12-16 07:13] LABS: BASO % 0.4 % (0.0-2.0); EOS # 0.2 K/uL (0.0-0.7); EOS % 2.3 % (0.0-4.0); HEMOGLOBIN 9.3 g/dL (12.0-18.0); LYMPH # 0.6 K/uL (1.0-4.3); LYMPH % 8.2 % (20.0-40.0); MEAN CELL VOLUME 88.8 fL (80.0-94.0); MEAN CORPUSCULAR HEMOGLOBIN 30.5 pg (27.0-31.0); MEAN CORPUSCULAR HGB CONC 34.3 g/dL (33.0-37.0); MONO # 0.8 K/uL (0.0-0.8); MONO % 12.2 % (0.0-10.0); NEUT # 5.2 K/uL (1.8-7.0); NEUT % 76.9 % (50.0-75.0); PLATELET COUNT 140 K/uL (130-400); RBC 3.06 Mil/uL (4.40-5.90); RED CELL DISTRIBUTION WIDTH 17.2 % (11.5-14.5); WHITE BLOOD COUNT 6.8 K/uL (4.8-10.8)
[2017-12-16] MEDS: (Novolin 70/30) NPH/Regular 70/30 Units/ml 10 ml vial SC SCH ×2 (07:30→08:30)
--- NOTE | 2017-12-16 07:51 | CP.PCM.PN ---
<Pamela Garcia - Last Filed: 12/16/17 10:50> Subjective - Date & Time of Evaluation Date of Evaluation: 12/16/17 Time of Evaluation: 07:00 - Subjective Subjective: Medicine Progress Note: Patient was seen and examined at bedside in the AM. Patient states he is passing flatus but has not had a bowel movement. Patient states he continues to have pain throughout his abdomen. Patient denies shortness of breath, chest pain, nausea or vomiting. Patient states he has been eating small portions of his food. Objective - Vital Signs/Intake and Output Vital Signs (last 24 hours): Temp Pulse Resp BP Pulse Ox 98.7 F 87 20 124/74 95 12/16/17 00:00 12/16/17 00:00 12/16/17 00:00 12/16/17 00:00 12/16/17 00:00 Intake and Output: 12/16/17 12/16/17 06:59 18:59 Intake Total 500 Balance 500 - Medications Medications: Current Medications Acetaminophen (Tylenol 325mg Tab) 650 mg PO Q6 PRN PRN Reason: Fever >100.4 F Albuterol/Ipratropium (Duoneb 3 Mg/0.5 Mg (3 Ml) Ud) 3 ml INH RQ6 [facility] Last Admin: 12/16/17 07:15 Dose: 3 ml Aspirin (Aspirin Chewable) 81 mg PO DAILY [facility] Last Admin: 12/15/17 10:00 Dose: 81 mg Budesonide (Pulmicort Respules) 0.5 mg INH RQ12 PRN PRN Reason: Shortness of Breath Last Admin: 12/15/17 07:14 Dose: 0.5 mg Calcium Acetate (Phoslo) 667 mg PO BIDCC [facility] Last Admin: 12/15/17 18:08 Dose: 667 mg Carvedilol (Coreg) 12.5 mg PO BID [facility] Last Admin: 12/15/17 18:08 Dose: 12.5 mg Docusate Sodium (Colace) 100 mg PO TID [facility] Last Admin: 12/15/17 18:08 Dose: 100 mg Epoetin Ant (Procrit) 10,000 unit IV TTS [facility] Last Admin: 12/14/17 11:44 Dose: 10,000 unit Epoetin Ant (Procrit) 2,000 u IV TTS [facility] Last Admin: 12/14/17 11:45 Dose: 2,000 u Guaifenesin/Dextromethorphan (Robitussin Dm) 5 ml PO Q4H PRN PRN Reason: Cough Hydralazine HCl (Apresoline) 100 mg PO Q8 [facility] Last Admin: 12/16/17 05:58 Dose: Not Given Insulin Human Isoph/Insulin Regular (Novolin 70/30 (70/30 Units/Ml) 10 Ml) 7 units SC ACB [facility] Insulin Human Isoph/Insulin Regular (Novolin 70/30 (70/30 Units/Ml) 10 Ml) 3 units SC ACBD [facility] Last Admin: 12/15/17 18:10 Dose: 3 units Insulin Human Regular (Novolin R) 0 unit SC ACHS [facility] PRN Reason: Protocol Last Admin: 12/15/17 22:02 Dose: Not Given Montelukast Sodium (Singulair) 10 mg PO HS [facility] Last Admin: 12/15/17 22:02 Dose: 10 mg Morphine Sulfate (Morphine) 1 mg IVP Q4 PRN PRN Reason: Pain, severe (8-10) Last Admin: 12/16/17 05:28 Dose: 1 mg Pantoprazole Sodium (Protonix Ec Tab) 40 mg PO DAILY [facility] Last Admin: 12/15/17 09:59 Dose: 40 mg Paricalcitol (Zemplar) 2 mcg IV TTS [facility] Last Admin: 12/14/17 11:46 Dose: 2 mcg Rosuvastatin Calcium (Crestor) 10 mg PO HS [facility] Last Admin: 12/15/17 22:02 Dose: 10 mg Sevelamer Carbonate (Renvela) 800 mg PO TIDCC [facility] Last Admin: 12/15/17 18:08 Dose: 800 mg Vitamin B Complex/Vit C/Folic Acid (Nephro-Berry) 1 tab PO 0800 [facility] Last Admin: 12/15/17 09:00 Dose: 1 tab - Labs Labs: 12/16/17 07:05 12/15/17 06:07 PT 10.8 SECONDS (9.7-12.2) 12/12/17 11:49 INR 1.0 12/12/17 11:49 APTT 31 SECONDS (21-34) 12/12/17 11:49 - Constitutional Appears: In Acute Distress - Head Exam Head Exam: ATRAUMATIC, NORMAL INSPECTION - Eye Exam Eye Exam: EOMI, Normal appearance - ENT Exam ENT Exam: Mucous Membranes Moist - Respiratory Exam Respiratory Exam: Clear to Ausculation Bilateral, NORMAL BREATHING PATTERN - Cardiovascular Exam Cardiovascular Exam: REGULAR RHYTHM, +S1, +S2 - GI/Abdominal Exam GI & Abdominal Exam: Firm, Tenderness, Normal Bowel Sounds Additional comments: obese abdomen; Dressing is clean/dry/intact - Extremities Exam Extremities Exam: Normal Inspection - Neurological Exam Neurological Exam: Alert, Awake, Oriented x3 - Psychiatric Exam Psychiatric exam: Normal Affect, Normal Mood - Skin Skin Exam: Normal Color Assessment and Plan - Assessment and Plan (Free Text) Assessment: 57 year old male with past medical history of renal cell cancer, NIDDM, HLD, HTN , ESRD on HD MWF, CHF with pacemaker placement, SHYANN is admitted for COPD exacerbation and nephrectomy. Renal cell carcinoma - s/p left robot-assisted radical nephrectomy with Dr. Bartlett 12/13/17 - Medications: Renvela 800mg PO TIDCC, Procit with dialysis, Phoslo added - Morphine 2mg IV q3prn - severe pain - Percocet 2 tabs q6prn - moderate pain History of ESRD on HD TTF - Nephrology Consult: Dr. Vogel --> help appreciated - Continue home medication: Renvela, procrit MWF COPD Exacerbation - resolved - CXR on admission was unchanged from previous imagining which showed cardiomegaly and mild pulm vascular congestion - ProBNP elevated on admission but improved from previous admissions - Troponin were elevated on admission but are similar to what they have been on previous admission. Elevation likely due to CKD - EKG showed NSR with no ST changes. Unchanged from previous EKG - On admission Dr. 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 - Pulm consult: Dr. Klein --> help appreciated - Medications: * Duoneb q6h [facility] for SOB * Cotninue home med: Pulmicort and singulair * Pt received solumedrol 80 IVP in ed * CPAP at night History of SHYANN - CPAP at night and during dialysis - Patient will follow up with Dr. Klein as an out patient for CPAP at home History of CHF with pacemaker - Will continue home medications: * Coreg 12.5 mg po bid, * hydralazine 100 mg po q 8 * aspirin 81mg po daily History of Thoracic Aneursym - CT Chest: Mild ascending thoracic aneurysm 4.3 cm greatest dimension terminating at the anterior arch. - Will need to follow up in 6-12 months History of DM - Will hold home oral hypoglycemic medications - Accuchecks ACHS - Novolin 70/30 7 units with breakfast; Novolin 70/30 3 units with dinner - hypoglycemic protocol - Hgb A1c 11/2017 was 6.6 History of HLD - Will continue statin therapy - Lipid panel on 11/2017 showed normal LDL and cholestrol. TG were 424. HDL 28 History of HTN - Continue home medication: coreg and hydralazine - will continue to monitor Prophyalxis - VTE c/i s/p surgery - will resume during scheduled dialysis - SCDs - Protonix - Dulcolax - Colace 100mg TID - Renal Diet/Prune juice with meals Case discussed with Dr. Meka Garcia PGY-1 <Asael Ackerman - Last Filed: 12/16/17 15:15> Objective - Vital Signs/Intake and Output Vital Signs (last 24 hours): Temp Pulse Resp BP Pulse Ox 97.9 F 80 20 119/81 95 12/16/17 09:35 12/16/17 09:35 12/16/17 10:05 12/16/17 13:05 12/16/17 09:35 Intake and Output: 12/16/17 12/16/17 06:59 18:59 Intake Total 500 480 Balance 500 480 - Medications Medications: Current Medications Acetaminophen (Tylenol 325mg Tab) 650 mg PO Q6 PRN PRN Reason: Fever >100.4 F Albuterol/Ipratropium (Duoneb 3 Mg/0.5 Mg (3 Ml) Ud) 3 ml INH RQ6 [facility] Last Admin: 12/16/17 07:15 Dose: 3 ml Aspirin (Aspirin Chewable) 81 mg PO DAILY [facility] Last Admin: 12/16/17 09:07 Dose: Not Given Budesonide (Pulmicort Respules) 0.5 mg INH RQ12 PRN PRN Reason: Shortness of Breath Last Admin: 12/15/17 07:14 Dose: 0.5 mg Calcium Acetate (Phoslo) 667 mg PO BIDCC [facility] Last Admin: 12/16/17 08:20 Dose: 667 mg Carvedilol (Coreg) 12.5 mg PO BID [facility] Last Admin: 12/16/17 09:07 Dose: Not Given Docusate Sodium (Colace) 100 mg PO TID [facility] Last Admin: 12/16/17 13:45 Dose: 100 mg Epoetin Ant (Procrit) 10,000 unit IV TTS [facility] Last Admin: 12/16/17 09:52 Dose: 10,000 unit Epoetin Ant (Procrit) 2,000 u IV TTS [facility] Last Admin: 12/16/17 09:53 Dose: 2,000 u Guaifenesin/Dextromethorphan (Robitussin Dm) 5 ml PO Q4H PRN PRN Reason: Cough Hydralazine HCl (Apresoline) 100 mg PO Q8 [facility] Last Admin: 12/16/17 13:45 Dose: Not Given Insulin Human Isoph/Insulin Regular (Novolin 70/30 (70/30 Units/Ml) 10 Ml) 7 units SC ACB [facility] Last Admin: 12/16/17 08:30 Dose: 7 units Insulin Human Isoph/Insulin Regular (Novolin 70/30 (70/30 Units/Ml) 10 Ml) 3 units SC ACD [facility] Insulin Human Regular (Novolin R) 0 unit SC ACHS [facility] PRN Reason: Protocol Last Admin: 12/16/17 11:29 Dose: Not Given Montelukast Sodium (Singulair) 10 mg PO HS [facility] Last Admin: 12/15/17 22:02 Dose: 10 mg Morphine Sulfate (Morphine) 2 mg IVP Q3 PRN PRN Reason: Pain, severe (8-10) Oxycodone/Acetaminophen (Percocet 5/325 Mg Tab) 2 tab PO Q6H PRN PRN Reason: Pain, moderate (4-7) Stop: 12/19/17 09:53 Pantoprazole Sodium (Protonix Ec Tab) 40 mg PO DAILY [facility] Last Admin: 12/16/17 09:08 Dose: Not Given Paricalcitol (Zemplar) 2 mcg IV TTS [facility] Last Admin: 12/14/17 11:46 Dose: 2 mcg Rosuvastatin Calcium (Crestor) 10 mg PO HS [facility] Last Admin: 12/15/17 22:02 Dose: 10 mg Sevelamer Carbonate (Renvela) 800 mg PO TIDCC [facility] Last Admin: 12/16/17 12:36 Dose: Not Given Vitamin B Complex/Vit C/Folic Acid (Nephro-Berry) 1 tab PO 0800 [facility] Last Admin: 12/16/17 08:19 Dose: 1 tab - Labs Labs: 12/16/17 07:05 12/16/17 07:05 PT 10.8 SECONDS (9.7-12.2) 12/12/17 11:49 INR 1.0 12/12/17 11:49 APTT 31 SECONDS (21-34) 12/12/17 11:49 Attending/Attestation - Attestation I have personally seen and examined this patient.: Yes I have fully participated in the care of the patient.: Yes I have reviewed all pertinent clinical information, including history, physical exam and plan: Yes Notes (Text): 12/16/17 15:13 Medical attending: Patient was seen and examined by me. Agree with the above note by the resident Patient denied chest pain, denied shortness of breath, he did report ongoing abdominal pain The patient was having HD when we saw him. He explained that he was still in a great deal of pain. We increased the morphine frequency and also added on PO percocet as well. The dressing over the abdomen looked clean dry and intact when we inspected it. thank you Asael Ackerman
--- NOTE | 2017-12-16 07:52 | CP.PCM.PN ---
Subjective - Date & Time of Evaluation Date of Evaluation: 12/16/17 Time of Evaluation: 07:00 - Subjective Subjective: patient seen and examined Complaining of abdominal pain Denies shortness of breath Using BiPAP at night Afebrile no chest pain Objective - Vital Signs/Intake and Output Vital Signs (last 24 hours): Temp Pulse Resp BP Pulse Ox 98.7 F 87 20 124/74 95 12/16/17 00:00 12/16/17 00:00 12/16/17 00:00 12/16/17 00:00 12/16/17 00:00 Intake and Output: 12/16/17 12/16/17 06:59 18:59 Intake Total 500 Balance 500 - Medications Medications: Current Medications Acetaminophen (Tylenol 325mg Tab) 650 mg PO Q6 PRN PRN Reason: Fever >100.4 F Albuterol/Ipratropium (Duoneb 3 Mg/0.5 Mg (3 Ml) Ud) 3 ml INH RQ6 [facility] Last Admin: 12/16/17 07:15 Dose: 3 ml Aspirin (Aspirin Chewable) 81 mg PO DAILY [facility] Last Admin: 12/15/17 10:00 Dose: 81 mg Budesonide (Pulmicort Respules) 0.5 mg INH RQ12 PRN PRN Reason: Shortness of Breath Last Admin: 12/15/17 07:14 Dose: 0.5 mg Calcium Acetate (Phoslo) 667 mg PO BIDCC [facility] Last Admin: 12/15/17 18:08 Dose: 667 mg Carvedilol (Coreg) 12.5 mg PO BID [facility] Last Admin: 12/15/17 18:08 Dose: 12.5 mg Docusate Sodium (Colace) 100 mg PO TID [facility] Last Admin: 12/15/17 18:08 Dose: 100 mg Epoetin Ant (Procrit) 10,000 unit IV TTS [facility] Last Admin: 12/14/17 11:44 Dose: 10,000 unit Epoetin Ant (Procrit) 2,000 u IV TTS [facility] Last Admin: 12/14/17 11:45 Dose: 2,000 u Guaifenesin/Dextromethorphan (Robitussin Dm) 5 ml PO Q4H PRN PRN Reason: Cough Hydralazine HCl (Apresoline) 100 mg PO Q8 [facility] Last Admin: 12/16/17 05:58 Dose: Not Given Insulin Human Isoph/Insulin Regular (Novolin 70/30 (70/30 Units/Ml) 10 Ml) 7 units SC ACB [facility] Insulin Human Isoph/Insulin Regular (Novolin 70/30 (70/30 Units/Ml) 10 Ml) 3 units SC ACBD [facility] Last Admin: 12/15/17 18:10 Dose: 3 units Insulin Human Regular (Novolin R) 0 unit SC ACHS [facility] PRN Reason: Protocol Last Admin: 12/15/17 22:02 Dose: Not Given Montelukast Sodium (Singulair) 10 mg PO HS [facility] Last Admin: 12/15/17 22:02 Dose: 10 mg Morphine Sulfate (Morphine) 1 mg IVP Q4 PRN PRN Reason: Pain, severe (8-10) Last Admin: 12/16/17 05:28 Dose: 1 mg Pantoprazole Sodium (Protonix Ec Tab) 40 mg PO DAILY [facility] Last Admin: 12/15/17 09:59 Dose: 40 mg Paricalcitol (Zemplar) 2 mcg IV TTS [facility] Last Admin: 12/14/17 11:46 Dose: 2 mcg Rosuvastatin Calcium (Crestor) 10 mg PO HS [facility] Last Admin: 12/15/17 22:02 Dose: 10 mg Sevelamer Carbonate (Renvela) 800 mg PO TIDCC [facility] Last Admin: 12/15/17 18:08 Dose: 800 mg Vitamin B Complex/Vit C/Folic Acid (Nephro-Berry) 1 tab PO 0800 [facility] Last Admin: 12/15/17 09:00 Dose: 1 tab - Labs Labs: 12/16/17 07:05 12/15/17 06:07 PT 10.8 SECONDS (9.7-12.2) 12/12/17 11:49 INR 1.0 12/12/17 11:49 APTT 31 SECONDS (21-34) 12/12/17 11:49 - Head Exam Head Exam: ATRAUMATIC, NORMOCEPHALIC - ENT Exam ENT Exam: Mucous Membranes Moist - Neck Exam Neck Exam: Normal Inspection - Respiratory Exam Respiratory Exam: Clear to Ausculation Bilateral - Cardiovascular Exam Cardiovascular Exam: REGULAR RHYTHM - GI/Abdominal Exam GI & Abdominal Exam: Soft - Extremities Exam Extremities Exam: Normal Inspection - Neurological Exam Neurological Exam: Alert, Oriented x3 Assessment and Plan (1) Asthma Assessment & Plan: continue nebulizer treatment and budesonide Status: Chronic (2) Obstructive sleep apnea Assessment & Plan: BiPAP at night because of overlap syndrome Will try to obtain sleep study from [facility] Status: Chronic (3) ESRD (end stage renal disease) on dialysis Status: Chronic
[2017-12-16 08:16] LABS: ALB/GLOB RATIO 1.4 (1.0-2.1); CALCIUM 8.6 mg/dl (8.6-10.4)
[2017-12-16] MEDS: Multivitamin Vitamin B Complex (Nephro-Vite) Tab PO SCH (08:19)
[2017-12-16] MEDS: Pantoprazole 40 mg EC Tab PO SCH ×2 (08:20→09:08)
[2017-12-16] MEDS: (Novolin R) Insulin Human Regular 100 units/ml vial SC SCH ×4 (08:30→22:29)
[2017-12-16] MEDS ORDERED: Oxycodone/Acetaminophen 5/325 mg Tab PO ONE (08:45)
[2017-12-16 09:13] LABS: ANISOCYTOSIS SLIGHT; BANDS 1 % (0-2); HYPOCHROMIC SLIGHT; LYMPHOCYTE 9 % (20-40); MONOCYTE 10 % (0-10); NEUTROPHIL 80 % (50-75); PLATELET ESTIMATE NORMAL (NORMAL); POIKILOCYTOSIS SLIGHT; TOTAL CELLS COUNTED 100
[2017-12-16 09:14] LABS: TARGET CELLS SLIGHT; TEARDROP CELLS SLIGHT
[2017-12-16] MEDS: Epoetin Alfa 10,000 unit/ml Dialysis IV SCH (09:52)
[2017-12-16] MEDS: Epoetin Alfa Dialysis 2000 U/ML Inj IV SCH (09:53)
--- NOTE | 2017-12-16 11:17 | CP.PCM.PN ---
Subjective - Date & Time of Evaluation Date of Evaluation: 12/16/17 Time of Evaluation: 11:16 - Subjective Subjective: pt is seen and examined, follow up consult is dictated#[id number] c/o severe pain in abdomen, s/p percocet 2 tabs po x1 given at 9am, feeling better seen in hd, uf goal is 4.5 lit Objective - Vital Signs/Intake and Output Vital Signs (last 24 hours): Temp Pulse Resp BP Pulse Ox 97.9 F 80 20 122/73 95 12/16/17 09:35 12/16/17 09:35 12/16/17 10:05 12/16/17 10:35 12/16/17 09:35 Intake and Output: 12/16/17 12/16/17 06:59 18:59 Intake Total 500 Balance 500 - Medications Medications: Current Medications Acetaminophen (Tylenol 325mg Tab) 650 mg PO Q6 PRN PRN Reason: Fever >100.4 F Albuterol/Ipratropium (Duoneb 3 Mg/0.5 Mg (3 Ml) Ud) 3 ml INH RQ6 [facility] Last Admin: 12/16/17 07:15 Dose: 3 ml Aspirin (Aspirin Chewable) 81 mg PO DAILY [facility] Last Admin: 12/16/17 09:07 Dose: Not Given Budesonide (Pulmicort Respules) 0.5 mg INH RQ12 PRN PRN Reason: Shortness of Breath Last Admin: 12/15/17 07:14 Dose: 0.5 mg Calcium Acetate (Phoslo) 667 mg PO BIDCC [facility] Last Admin: 12/16/17 08:20 Dose: 667 mg Carvedilol (Coreg) 12.5 mg PO BID [facility] Last Admin: 12/16/17 09:07 Dose: Not Given Docusate Sodium (Colace) 100 mg PO TID [facility] Last Admin: 12/16/17 09:07 Dose: Not Given Epoetin Ant (Procrit) 10,000 unit IV TTS [facility] Last Admin: 12/16/17 09:52 Dose: 10,000 unit Epoetin Ant (Procrit) 2,000 u IV TTS [facility] Last Admin: 12/16/17 09:53 Dose: 2,000 u Guaifenesin/Dextromethorphan (Robitussin Dm) 5 ml PO Q4H PRN PRN Reason: Cough Hydralazine HCl (Apresoline) 100 mg PO Q8 [facility] Last Admin: 12/16/17 05:58 Dose: Not Given Insulin Human Isoph/Insulin Regular (Novolin 70/30 (70/30 Units/Ml) 10 Ml) 7 units SC ACB [facility] Last Admin: 12/16/17 08:30 Dose: 7 units Insulin Human Isoph/Insulin Regular (Novolin 70/30 (70/30 Units/Ml) 10 Ml) 3 units SC ACD [facility] Insulin Human Regular (Novolin R) 0 unit SC ACHS [facility] PRN Reason: Protocol Last Admin: 12/16/17 08:30 Dose: 3 units Montelukast Sodium (Singulair) 10 mg PO HS [facility] Last Admin: 12/15/17 22:02 Dose: 10 mg Morphine Sulfate (Morphine) 2 mg IVP Q3 PRN PRN Reason: Pain, severe (8-10) Oxycodone/Acetaminophen (Percocet 5/325 Mg Tab) 2 tab PO Q6H PRN PRN Reason: Pain, moderate (4-7) Stop: 12/19/17 09:53 Pantoprazole Sodium (Protonix Ec Tab) 40 mg PO DAILY [facility] Last Admin: 12/16/17 09:08 Dose: Not Given Paricalcitol (Zemplar) 2 mcg IV TTS [facility] Last Admin: 12/14/17 11:46 Dose: 2 mcg Rosuvastatin Calcium (Crestor) 10 mg PO HS [facility] Last Admin: 12/15/17 22:02 Dose: 10 mg Sevelamer Carbonate (Renvela) 800 mg PO TIDCC [facility] Last Admin: 12/16/17 08:20 Dose: 800 mg Vitamin B Complex/Vit C/Folic Acid (Nephro-Berry) 1 tab PO 0800 [facility] Last Admin: 12/16/17 08:19 Dose: 1 tab - Labs Labs: 12/16/17 07:05 12/16/17 07:05 PT 10.8 SECONDS (9.7-12.2) 12/12/17 11:49 INR 1.0 12/12/17 11:49 APTT 31 SECONDS (21-34) 12/12/17 11:49
[2017-12-16] MEDS ORDERED: (Novolin 70/30) NPH/Regular 70/30 Units/ml 10 ml vial SC SCH (16:30)
[2017-12-16] MEDS: Oxycodone/Acetaminophen 5/325 mg Tab PO PRN (22:34)
[2017-12-17 01:06] VITALS: RESP 20; O2SAT 96
[2017-12-17] MEDS: Albuterol-Ipratrop 3 mg / 0.5 (3 ml) UD INH SCH ×3 (01:11→13:17)
--- NOTE | 2017-12-17 06:24 | PN ---
DATE: 12/16/2017 FOLLOWUP RENAL CONSULTATION LOCATION: The patient is located in room 350, bed A. REQUESTED BY: Asael Ackerman DO REASON FOR RENAL CONSULTATION: End-stage renal disease, continuation of hemodialysis. HISTORY OF PRESENT ILLNESS: The patient is a 57-year-old middle-aged obese [place] male with a past medical history significant for longstanding hypertension, diabetes, proteinuria, end-stage renal disease, hyperlipidemia, obstructive sleep apnea, asthma, left renal mass who was admitted for robotic nephrectomy. The patient underwent radical left nephrectomy for renal mass on Wednesday. The patient is complaining of severe pain in the abdomen this morning. The patient was given 2 tablets of Percocet and felt much better, and the patient was seen and examined during hemodialysis, and UF goal is 4500 mL. Denies any shortness of breath. The patient is on BiPAP during dialysis. No nausea, no vomiting, no abdominal pain. No swelling of the legs. PHYSICAL EXAMINATION: VITAL SIGNS: This morning as follows: Blood pressure 133/81, pulse 80, respirations 24, temperature 97.9, saturation 95%. Height 5 feet 6 inches, weight is 301 pounds. GENERAL: Mr. Mehta is a 57-year-old middle-aged obese male, well-built, well-nourished, on BiPAP, being dialyzed. HEENT: Pupils normal and reactive to light and accommodation. Conjunctivae pink. Sclerae anicteric. Tongue is moist. Trachea is midline. LUNGS: Symmetric on both sides. Bilateral breath sounds present. Clear to auscultation. CVS: Beebe at the fifth intercostal space, midclavicular line. S1, S2 audible. No murmur or gallop. ABDOMEN: Slightly protuberant, soft, tympanic. No guarding. No rigidity. No hepatosplenomegaly. RETURNS PROCESSOR: The patient is alert, awake, oriented x3. Nonfocal neuro examination. Cranial nerves II through XII grossly intact. Sensory and motor system is within normal limits. EXTREMITIES: No cyanosis, no clubbing, no edema. MEDICATIONS: His current medications include as follows: Hydralazine 100 mg p.o. every 8 hours; aspirin 81 mg daily; Colace 100 mg p.o. t.i.d.; Coreg 12.5 mg p.o. b.i.d.; Crestor 10 mg at bedtime; DuoNeb inhaler every 6 hours; morphine 2 mg IV every 3 hours p.r.n.; Nephro-Berry 1 tablet p.o. daily; Novolin 70/30, 7 units subcu a.c.b. and 3 units subcu a.c.d.; Novolin R for sliding scale; Percocet 2 tablets p.o. every 6 hours p.r.n.; PhosLo 667 mg p.o. b.i.d.; Percocet 2 tablets p.o. every 6 hours p.r.n.; Procrit 12,000 units three times a week; Protonix 40 mg p.o. daily; Pulmicort 0.5 mg inhaler every 12 hours p.r.n.; Renvela 800 mg p.o. t.i.d.; Robitussin DM 5 mL p.o. every 4 hours p.r.n.; Singulair 10 mg p.o. at bedtime; Tylenol and Zemplar 2 mcg three times a week. LABORATORY DATA: Include as follows: As of 12/16/2017, WBC 6.8, hemoglobin 9.3, hematocrit is 27.2, platelets 140, neutrophils 18, bands 1, lymphs 9, monos 10. Sodium 135, potassium 3.9, chloride 93, CO2 of 27, BUN 58, creatinine 9.5, glucose of 159, calcium is 8.6, phosphorus is 7.3, and magnesium 2.1. Total bili 0.8, AST 27, ALT 16, alkaline phosphatase 64, total protein 6.9, albumin is 4. IMPRESSION: In summary, the patient is a 57-year-old middle-aged obese male with hypertension, diabetes, obstructive sleep apnea, hyperlipidemia, end-stage renal disease, proteinuria, asthma, congestive heart failure, poor left ventricular function, ejection fraction 20% to 25%, status post automatic implantable cardioverter-defibrillator, left renal mass, underwent radical left nephrectomy by robotic surgery. 1. End-stage renal disease. Continue hemodialysis three times a week, ultrafiltration goal is about 4500 mL during dialysis. The patient is tolerating ultrafiltration very well. 2. Hypertension. Blood pressure is under control. Continue hydralazine and Coreg. 3. Second hyperparathyroidism. Continue PhosLo and Renvela. Continue Zemplar. 4. Anemia secondary to renal failure. Continue to monitor H and H. Continue Procrit 12,000 units three times a week, and continue Percocet 2 tablets every 6 hours p.r.n. for pain. Continue physical therapy. We will follow with you. Thank you for allowing me to participate in your patient's care. Talya Vogel MD
[2017-12-17 06:58] LABS: ALB/GLOB RATIO 1.3 (1.0-2.1); ALBUMIN 3.8 g/dL (3.5-5.0); CALCIUM 8.6 mg/dl (8.6-10.4)
[2017-12-17] MEDS: Multivitamin Vitamin B Complex (Nephro-Vite) Tab PO SCH (08:02)
[2017-12-17] MEDS: (Novolin 70/30) NPH/Regular 70/30 Units/ml 10 ml vial SC SCH (08:03)
[2017-12-17] MEDS: (Novolin R) Insulin Human Regular 100 units/ml vial SC SCH ×2 (08:04→12:27)
[2017-12-17 08:44] VITALS: BP 137/70; PULSE 88; TEMP 98.7
[2017-12-17] MEDS: Pantoprazole 40 mg EC Tab PO SCH (09:42)
--- NOTE | 2017-12-17 10:29 | CP.PCM.PN ---
Subjective - Date & Time of Evaluation Date of Evaluation: 12/17/17 Time of Evaluation: 10:26 - Subjective Subjective: Pulmonary Follow up, Covering Dr. Klein The patient was Seen and examined by me at the bedside, Events reviewed Patient feeling much better, comfortable, NAD Breathing unlabored, on room air O2 sat 95-100%. Denies any chest pain, SOB or Palpitations Afebrile Patient refused JOSE placement and prefer to go home. He will follow up with sleep lab and Dr Klein in one week. Objective - Vital Signs/Intake and Output Vital Signs (last 24 hours): Temp Pulse Resp BP Pulse Ox 98.7 F 88 20 137/70 96 12/17/17 08:00 12/17/17 08:00 12/17/17 08:00 12/17/17 09:44 12/17/17 08:00 Intake and Output: 12/17/17 12/17/17 06:59 18:59 Intake Total 650 Balance 650 - Medications Medications: Current Medications Acetaminophen (Tylenol 325mg Tab) 650 mg PO Q6 PRN PRN Reason: Fever >100.4 F Albuterol/Ipratropium (Duoneb 3 Mg/0.5 Mg (3 Ml) Ud) 3 ml INH RQ6 [facility] Last Admin: 12/17/17 07:25 Dose: Not Given Aspirin (Aspirin Chewable) 81 mg PO DAILY [facility] Last Admin: 12/17/17 09:42 Dose: 81 mg Budesonide (Pulmicort Respules) 0.5 mg INH RQ12 PRN PRN Reason: Shortness of Breath Last Admin: 12/15/17 07:14 Dose: 0.5 mg Calcium Acetate (Phoslo) 667 mg PO BIDCC [facility] Last Admin: 12/17/17 08:02 Dose: 667 mg Carvedilol (Coreg) 12.5 mg PO BID [facility] Last Admin: 12/17/17 09:44 Dose: 12.5 mg Docusate Sodium (Colace) 100 mg PO TID [facility] Last Admin: 12/17/17 09:42 Dose: 100 mg Epoetin Ant (Procrit) 10,000 unit IV TTS [facility] Last Admin: 12/16/17 09:52 Dose: 10,000 unit Epoetin Ant (Procrit) 2,000 u IV TTS [facility] Last Admin: 12/16/17 09:53 Dose: 2,000 u Guaifenesin/Dextromethorphan (Robitussin Dm) 5 ml PO Q4H PRN PRN Reason: Cough Hydralazine HCl (Apresoline) 100 mg PO Q8 [facility] Last Admin: 12/17/17 06:17 Dose: Not Given Insulin Human Isoph/Insulin Regular (Novolin 70/30 (70/30 Units/Ml) 10 Ml) 7 units SC ACB [facility] Last Admin: 12/17/17 08:03 Dose: Not Given Insulin Human Isoph/Insulin Regular (Novolin 70/30 (70/30 Units/Ml) 10 Ml) 3 units SC ACD [facility] Last Admin: 12/16/17 17:53 Dose: 3 units Insulin Human Regular (Novolin R) 0 unit SC ACHS [facility] PRN Reason: Protocol Last Admin: 12/17/17 08:04 Dose: Not Given Montelukast Sodium (Singulair) 10 mg PO HS [facility] Last Admin: 12/16/17 22:30 Dose: 10 mg Morphine Sulfate (Morphine) 2 mg IVP Q3 PRN PRN Reason: Pain, severe (8-10) Oxycodone/Acetaminophen (Percocet 5/325 Mg Tab) 2 tab PO Q6H PRN PRN Reason: Pain, moderate (4-7) Stop: 12/19/17 09:53 Last Admin: 12/16/17 22:34 Dose: 2 tab Pantoprazole Sodium (Protonix Ec Tab) 40 mg PO DAILY [facility] Last Admin: 12/17/17 09:42 Dose: 40 mg Paricalcitol (Zemplar) 2 mcg IV TTS [facility] Last Admin: 12/14/17 11:46 Dose: 2 mcg Rosuvastatin Calcium (Crestor) 10 mg PO HS [facility] Last Admin: 12/16/17 22:29 Dose: 10 mg Sevelamer Carbonate (Renvela) 800 mg PO TIDCC [facility] Last Admin: 12/17/17 08:03 Dose: 800 mg Vitamin B Complex/Vit C/Folic Acid (Nephro-Berry) 1 tab PO 0800 [facility] Last Admin: 12/17/17 08:02 Dose: 1 tab - Labs Labs: 12/16/17 07:05 12/17/17 06:32 PT 10.8 SECONDS (9.7-12.2) 12/12/17 11:49 INR 1.0 12/12/17 11:49 APTT 31 SECONDS (21-34) 12/12/17 11:49 - Constitutional Appears: Well, Non-toxic - Head Exam Head Exam: ATRAUMATIC, NORMAL INSPECTION - Eye Exam Pupil Exam: PERRL - ENT Exam ENT Exam: Mucous Membranes Moist - Neck Exam Neck Exam: Full ROM, Normal Inspection - Respiratory Exam Respiratory Exam: Clear to Ausculation Bilateral, NORMAL BREATHING PATTERN. absent: Accessory Muscle Use, Rhonchi, Wheezes - Cardiovascular Exam Cardiovascular Exam: REGULAR RHYTHM, RRR. absent: JVD - GI/Abdominal Exam GI & Abdominal Exam: Distended, Normal Bowel Sounds - Extremities Exam Extremities Exam: Full ROM. absent: Calf Tenderness, Pedal Edema - Neurological Exam Neurological Exam: Alert, Altered, Awake Assessment and Plan (1) Obstructive sleep apnea syndrome Assessment & Plan: BiPAP at night because of overlap syndrome Will review sleep study from [facility] CPAP titration in [facility] next week Status: Acute (2) Asthma exacerbation Assessment & Plan: Improved respiratory status continue nebulizer treatment Continue Pulmicort and singulair Status: Acute (3) ESRD (end stage renal disease) on dialysis Status: Chronic (4) Anemia Status: Acute (5) Chronic congestive heart failure Status: Acute
[2017-12-17] MEDS ORDERED: Bisacodyl 5mg EC Tab PO ONE ×2 (11:06→12:45)
[2017-12-17] MEDS ORDERED: POLYETHYLENE GLYCOL 3350 17 GM/Dose PACKET PO PRN (11:06)
--- NOTE | 2017-12-17 11:26 | PN ---
DATE: 12/16/2017 See history and physical, consult note and operative note. SUBJECTIVE: A very pleasant gentleman. He is currently resting comfortably here in the dialysis unit. He is receiving his dialysis. He is status post nephrectomy. The patient reports the usual postop pain. He reports he is able to breath adequately. He currently has an oxygen mask in place. PHYSICAL EXAMINATION: Remains unchanged. It is a limited exam in dialysis unit. DIAGNOSES: 1. Renal cell carcinoma. 2. Status post nephrectomy. PLAN: He is overall doing well. The plan is as follows; continue the dialysis and routine postoperative care, encourage ambulation, etc. Jacob Bartlett MD
--- NOTE | 2017-12-17 11:50 | CP.PCM.DIS ---
<Clayton Garciassvalentine Jin - Last Filed: 12/17/17 12:29> Provider - Provider Date of Admission: 12/12/17 12:49 Attending physician: Asael Ackerman DO Time Spent in preparation of Discharge (in minutes): 40 Hospital Course - Lab Results Lab Results: Micro Results 12/14/17 18:41 Naris MRSA Culture (Admit) - Final MRSA NOT DETECTED 12/13/17 18:36 Naris MRSA Culture (Admit) - Final MRSA NOT DETECTED Most Recent Lab Values WBC 6.8 K/uL (4.8-10.8) 12/16/17 07:05 RBC 3.06 Mil/uL (4.40-5.90) L 12/16/17 07:05 Hgb 9.3 g/dL (12.0-18.0) L 12/16/17 07:05 Hct 27.2 % (35.0-51.0) L 12/16/17 07:05 MCV 88.8 fL (80.0-94.0) 12/16/17 07:05 MCH 30.5 pg (27.0-31.0) 12/16/17 07:05 MCHC 34.3 g/dL (33.0-37.0) 12/16/17 07:05 RDW 17.2 % (11.5-14.5) H 12/16/17 07:05 Plt Count 140 K/uL (130-400) 12/16/17 07:05 MPV 9.0 fL (7.2-11.7) 12/16/17 07:05 Neut % (Auto) 76.9 % (50.0-75.0) H 12/16/17 07:05 Lymph % (Auto) 8.2 % (20.0-40.0) L 12/16/17 07:05 [place] % (Auto) 12.2 % (0.0-10.0) H 12/16/17 07:05 Eos % (Auto) 2.3 % (0.0-4.0) 12/16/17 07:05 Baso % (Auto) 0.4 % (0.0-2.0) 12/16/17 07:05 Neut # (Auto) 5.2 K/uL (1.8-7.0) 12/16/17 07:05 Lymph # (Auto) 0.6 K/uL (1.0-4.3) L 12/16/17 07:05 [place] # (Auto) 0.8 K/uL (0.0-0.8) 12/16/17 07:05 Eos # (Auto) 0.2 K/uL (0.0-0.7) 12/16/17 07:05 Baso # (Auto) 0.0 K/uL (0.0-0.2) 12/16/17 07:05 Neutrophils % (Manual) 80 % (50-75) H 12/16/17 07:05 Band Neutrophils % 1 % (0-2) 12/16/17 07:05 Lymphocytes % (Manual) 9 % (20-40) L 12/16/17 07:05 Monocytes % (Manual) 10 % (0-10) 12/16/17 07:05 Eosinophils % (Manual) 1 % (0-4) 12/12/17 11:49 Platelet Estimate Normal (NORMAL) 12/16/17 07:05 Large Platelets Present 12/15/17 06:07 Polychromasia Slight 12/13/17 08:07 Hypochromasia (manual) Slight 12/16/17 07:05 Poikilocytosis (manual Slight 12/16/17 07:05 Anisocytosis (manual) Slight 12/16/17 07:05 Target Cells Slight 12/16/17 07:05 Tear Drop Cells Slight 12/16/17 07:05 Ovalocytes Slight 12/14/17 06:28 PT 10.8 SECONDS (9.7-12.2) 12/12/17 11:49 INR 1.0 12/12/17 11:49 APTT 31 SECONDS (21-34) 12/12/17 11:49 Puncture Site Lra 12/12/17 19:08 pCO2 34 mm/Hg (35-45) L 12/12/17 19:08 pO2 76 mm/Hg (80-100) L 12/12/17 19:08 HCO3 28.7 mmol/L (21-28) H 12/12/17 19:08 ABG pH 7.52 (7.35-7.45) H 12/12/17 19:08 ABG Total CO2 28.8 mmol/L (22-28) H 12/12/17 19:08 ABG O2 Saturation 98.5 % (95-98) H 12/12/17 19:08 ABG Base Excess 4.9 mmol/L (-2.0-3.0) H 12/12/17 19:08 ABG Hemoglobin 11.5 g/dL (11.7-17.4) L 12/12/17 19:08 ABG Carboxyhemoglobin 2.4 % (0.5-1.5) H 12/12/17 19:08 POC ABG HHb (Measured) 1.4 % (0.0-5.0) 12/12/17 19:08 ABG Methemoglobin 1.8 % (0.0-3.0) 12/12/17 19:08 Ananda Test Pos 12/12/17 19:08 VBG pH 7.38 (7.32-7.43) 12/12/17 12:05 VBG pCO2 50 mmHg (40-60) 12/12/17 12:05 VBG HCO3 25.8 mmol/L 12/12/17 12:05 VBG Total CO2 31.1 mmol/L (22-28) H 12/12/17 12:05 VBG O2 Sat (Calc) 61.5 % (40-65) 12/12/17 12:05 VBG Base Excess 3.4 mmol/L (0.0-2.0) H 12/12/17 12:05 VBG Potassium 3.4 mmol/L (3.6-5.2) L 12/12/17 12:05 A-a O2 Difference 31.0 mm/Hg 12/12/17 19:08 Respiratory Index 0.4 12/12/17 19:08 Hgb O2 Saturation 94.4 % (95.0-98.0) L 12/12/17 19:08 Sodium 142.0 mmol/l (132-148) 12/12/17 12:05 Chloride 109.0 mmol/L (98-107) H 12/12/17 12:05 Glucose 239 mg/dl (75-110) H 12/12/17 12:05 Lactate 1.5 mmol/L (0.7-2.1) 12/12/17 12:05 FiO2 21.0 % 12/12/17 19:08 Sodium 138 mmol/L (132-148) 12/17/17 06:32 Potassium 4.2 mmol/L (3.6-5.2) 12/17/17 06:32 Chloride 95 mmol/L (98-107) L 12/17/17 06:32 Carbon Dioxide 28 mmol/L (22-30) 12/17/17 06:32 Anion Gap 19 (10-20) 12/17/17 06:32 BUN 44 mg/dL (9-20) H 12/17/17 06:32 Creatinine 8.4 mg/dL (0.8-1.5) H* 12/17/17 06:32 Est GFR ( Amer) 8 12/17/17 06:32 Est GFR (Non-Af Amer) 7 12/17/17 06:32 POC Glucose (mg/dL) 151 mg/dL (65-110) H 12/17/17 07:05 Random Glucose 142 mg/dL (75-110) H 12/17/17 06:32 Calcium 8.6 mg/dl (8.6-10.4) 12/17/17 06:32 Phosphorus 8.1 mg/dL (2.5-4.5) H 12/17/17 06:32 Magnesium 2.1 mg/dL (1.6-2.3) 12/17/17 06:32 Total Bilirubin 0.7 mg/dL (0.2-1.3) 12/17/17 06:32 AST 25 U/L (17-59) 12/17/17 06:32 ALT 22 U/L (21-72) 12/17/17 06:32 Alkaline Phosphatase 64 U/L (38-126) 12/17/17 06:32 Troponin I 0.2290 ng/mL (0.00-0.120) H* 12/12/17 11:49 NT-Pro-B Natriuret Pep 2080 pg/mL (0-900) H 12/12/17 11:49 Total Protein 6.7 g/dL (6.3-8.3) 12/17/17 06:32 Albumin 3.8 g/dL (3.5-5.0) 12/17/17 06:32 Globulin 2.9 gm/dL (2.2-3.9) 12/17/17 06:32 Albumin/Globulin Ratio 1.3 (1.0-2.1) 12/17/17 06:32 Venous Blood Potassium 3.4 mmol/L (3.6-5.2) L 12/12/17 12:05 Urine Color Yellow (YELLOW) 12/12/17 15:11 Urine Clarity Clear (Clear) 12/12/17 15:11 Urine pH 6.0 (5.0-8.0) 12/12/17 15:11 Ur Specific [place] 1.012 (1.003-1.030) 12/12/17 15:11 Urine Protein 3+ mg/dL (NEGATIVE) H 12/12/17 15:11 Urine Glucose (UA) 2+ mg/dL (Normal) H 12/12/17 15:11 Urine Ketones Negative mg/dL (NEGATIVE) 12/12/17 15:11 Urine Blood Negative (NEGATIVE) 12/12/17 15:11 Urine Nitrate Negative (NEGATIVE) 12/12/17 15:11 Urine Bilirubin Negative (NEGATIVE) 12/12/17 15:11 Urine Urobilinogen Normal mg/dL (0.2-1.0) 12/12/17 15:11 Ur Leukocyte Esterase Neg Larisa/uL (Negative) 12/12/17 15:11 Urine WBC (Auto) 1 /hpf (0-5) 12/12/17 15:11 Ur Squamous Epith Cells < 1 /hpf (0-5) 12/12/17 15:11 Blood Type O POSITIVE 12/13/17 08:07 Antibody Screen Negative 12/13/17 08:07 - Hospital Course Hospital Course: HPI: 57 year old male with past medical history of renal cell cancer, NIDDM, HLD , HTN, ESRD on HD MWF, CHF with pacemaker placement, SHYANN, presented to hospital for shortness of breath worse with exertion. Patient is scheduled to have nephrectromy with Dr. Deejay Bartlett tomorrow. He was sent into the ED by Dr. Bartlett for worsening dyspnea and for possibly needing an additional dialysis treatment prior to his procedure. Patient states that dyspnea began yesterday and is worse with exertion. Today he used his Ventolin inhaler twice which improved his breathing. Patient denies having any CP, coughing, fevers, chills , abd pain, N/V/D/C at home. Patient is scheduled for left total nephrectomy tomorrow. He states that he was seen by his frozen food selector, Dr. Brown for medical clearance. Per patient, he had a recent stress test and was medically cleared by Dr. Brown. In ED, pt was noted to be hypoxic with saturation of 94% on RA. He was started on vasotherm and breathing improved. PMD: Dr.Merwin Brown PMH: as above PSH: Left arm radio-cephalic AV Fistula, Dialysis catheter insertion, Appendectomy, Pacemaker placement Allergies: NKDA FH: Mother- - [place]; Father- living- no medical issues Social hx: Denies smoking. Former alcohol drinker. Denies drug use. Fully mobile w/o assistnace. Does not work; on disability due to his asthma. Hospital Course: Patient was admitted for shortness of breath secondary to COPD exacerbation. CXR on admission was unchanged from previous imagining which showed cardiomegaly and mild pulm vascular congestion; ProBNP elevated on admission but improved from previous admissions; Troponin were elevated on admission but are similar to what they have been on previous admission. Elevation likely due to CKD. Creative Services Designer Dr. Klein was consulted. Dr. Sydney Bartlett was consulted and patient underwent left robot-assisted radical nephrectomy with Dr. Bartlett 12/13/17. Patient also received dialysis TTS during this admission. After surgery physical therapy recommended JOSE but patient refused. Patient was ambulatory after surgery. Patient is medically stable for discharge home. Patient to follow up with primary medical doctor within one week. Patient should follow up with Dr. Bartlett's office within two weeks. Please call Wednesday to schedule an appointment. Patient is instructed to follow up with Dr. Klein's office within one week for follow up care. He is to call [facility] at [phone] to get ahold of the sleep study center. He needs to call to set up an appointment. If symptoms return, go to the emergency room. Instructions explained to patient who is aware. This is a summary of the patient's hospital course. Refer to full EMR for a complete record. Discharge Exam - Head Exam Head Exam: ATRAUMATIC, NORMAL INSPECTION - Eye Exam Eye Exam: EOMI, Normal appearance, PERRL Pupil Exam: NORMAL ACCOMODATION - ENT Exam ENT Exam: Mucous Membranes Moist - Respiratory Exam Respiratory Exam: Clear to PA & Lateral, NORMAL BREATHING PATTERN - Cardiovascular Exam Cardiovascular Exam: REGULAR RHYTHM, +S1, +S2 - GI/Abdominal Exam GI & Abdominal Exam: Normal Bowel Sounds, Soft, Tenderness Additional comments: obese abdomen; Dressing is clean/dry/intact - Extremities Exam Extremities exam: normal inspection - Neurological Exam Neurological exam: Alert, Oriented x3 - Psychiatric Exam Psychiatric exam: Normal Affect - Skin Skin Exam: Normal Color Discharge Plan - Discharge Medications Prescriptions: Docusate [Colace] 100 mg PO TID #90 cap - Follow Up Plan Condition: SERIOUS Disposition: HOME/ ROUTINE Instructions: Asthma, Adult (DC), Heart Attack (DC), Dialysis and Diet Additional Instructions: Patient is medically stable for discharge home. Patient to follow up with primary medical doctor within one week. Patient should follow up with Dr. Bartlett's office within two weeks. Patient is instructed to follow up with Dr. Klein's office within one week for follow up care. He is to call [facility] at [phone] to get ahold of the sleep study center. He needs to call to set up an appointment. If symptoms return, go to the emergency room. Instructions explained to patient who is aware. Referrals: Giovani Klein MD [Staff Provider] - Harmony Brown MD [Staff Provider] - Sydney Bartlett MD [Staff Provider] - <Asael Ackerman - Last Filed: 12/17/17 14:58> Provider - Provider Date of Admission: 12/12/17 12:49 Attending physician: Asael Ackerman, Hospital Course - Lab Results Lab Results: Micro Results 12/14/17 18:41 Naris MRSA Culture (Admit) - Final MRSA NOT DETECTED 12/13/17 18:36 Naris MRSA Culture (Admit) - Final MRSA NOT DETECTED Most Recent Lab Values WBC 6.8 K/uL (4.8-10.8) 12/16/17 07:05 RBC 3.06 Mil/uL (4.40-5.90) L 12/16/17 07:05 Hgb 9.3 g/dL (12.0-18.0) L 12/16/17 07:05 Hct 27.2 % (35.0-51.0) L 12/16/17 07:05 MCV 88.8 fL (80.0-94.0) 12/16/17 07:05 MCH 30.5 pg (27.0-31.0) 12/16/17 07:05 MCHC 34.3 g/dL (33.0-37.0) 12/16/17 07:05 RDW 17.2 % (11.5-14.5) H 12/16/17 07:05 Plt Count 140 K/uL (130-400) 12/16/17 07:05 MPV 9.0 fL (7.2-11.7) 12/16/17 07:05 Neut % (Auto) 76.9 % (50.0-75.0) H 12/16/17 07:05 Lymph % (Auto) 8.2 % (20.0-40.0) L 12/16/17 07:05 [place] % (Auto) 12.2 % (0.0-10.0) H 12/16/17 07:05 Eos % (Auto) 2.3 % (0.0-4.0) 12/16/17 07:05 Baso % (Auto) 0.4 % (0.0-2.0) 12/16/17 07:05 Neut # (Auto) 5.2 K/uL (1.8-7.0) 12/16/17 07:05 Lymph # (Auto) 0.6 K/uL (1.0-4.3) L 12/16/17 07:05 [place] # (Auto) 0.8 K/uL (0.0-0.8) 12/16/17 07:05 Eos # (Auto) 0.2 K/uL (0.0-0.7) 12/16/17 07:05 Baso # (Auto) 0.0 K/uL (0.0-0.2) 12/16/17 07:05 Neutrophils % (Manual) 80 % (50-75) H 12/16/17 07:05 Band Neutrophils % 1 % (0-2) 12/16/17 07:05 Lymphocytes % (Manual) 9 % (20-40) L 12/16/17 07:05 Monocytes % (Manual) 10 % (0-10) 12/16/17 07:05 Eosinophils % (Manual) 1 % (0-4) 12/12/17 11:49 Platelet Estimate Normal (NORMAL) 12/16/17 07:05 Large Platelets Present 12/15/17 06:07 Polychromasia Slight 12/13/17 08:07 Hypochromasia (manual) Slight 12/16/17 07:05 Poikilocytosis (manual Slight 12/16/17 07:05 Anisocytosis (manual) Slight 12/16/17 07:05 Target Cells Slight 12/16/17 07:05 Tear Drop Cells Slight 12/16/17 07:05 Ovalocytes Slight 12/14/17 06:28 PT 10.8 SECONDS (9.7-12.2) 12/12/17 11:49 INR 1.0 12/12/17 11:49 APTT 31 SECONDS (21-34) 12/12/17 11:49 Puncture Site Lra 12/12/17 19:08 pCO2 34 mm/Hg (35-45) L 12/12/17 19:08 pO2 76 mm/Hg (80-100) L 12/12/17 19:08 HCO3 28.7 mmol/L (21-28) H 12/12/17 19:08 ABG pH 7.52 (7.35-7.45) H 12/12/17 19:08 ABG Total CO2 28.8 mmol/L (22-28) H 12/12/17 19:08 ABG O2 Saturation 98.5 % (95-98) H 12/12/17 19:08 ABG Base Excess 4.9 mmol/L (-2.0-3.0) H 12/12/17 19:08 ABG Hemoglobin 11.5 g/dL (11.7-17.4) L 12/12/17 19:08 ABG Carboxyhemoglobin 2.4 % (0.5-1.5) H 12/12/17 19:08 POC ABG HHb (Measured) 1.4 % (0.0-5.0) 12/12/17 19:08 ABG Methemoglobin 1.8 % (0.0-3.0) 12/12/17 19:08 Ananda Test Pos 12/12/17 19:08 VBG pH 7.38 (7.32-7.43) 12/12/17 12:05 VBG pCO2 50 mmHg (40-60) 12/12/17 12:05 VBG HCO3 25.8 mmol/L 12/12/17 12:05 VBG Total CO2 31.1 mmol/L (22-28) H 12/12/17 12:05 VBG O2 Sat (Calc) 61.5 % (40-65) 12/12/17 12:05 VBG Base Excess 3.4 mmol/L (0.0-2.0) H 12/12/17 12:05 VBG Potassium 3.4 mmol/L (3.6-5.2) L 12/12/17 12:05 A-a O2 Difference 31.0 mm/Hg 12/12/17 19:08 Respiratory Index 0.4 12/12/17 19:08 Hgb O2 Saturation 94.4 % (95.0-98.0) L 12/12/17 19:08 Sodium 142.0 mmol/l (132-148) 12/12/17 12:05 Chloride 109.0 mmol/L (98-107) H 12/12/17 12:05 Glucose 239 mg/dl (75-110) H 12/12/17 12:05 Lactate 1.5 mmol/L (0.7-2.1) 12/12/17 12:05 FiO2 21.0 % 12/12/17 19:08 Sodium 138 mmol/L (132-148) 12/17/17 06:32 Potassium 4.2 mmol/L (3.6-5.2) 12/17/17 06:32 Chloride 95 mmol/L (98-107) L 12/17/17 06:32 Carbon Dioxide 28 mmol/L (22-30) 12/17/17 06:32 Anion Gap 19 (10-20) 12/17/17 06:32 BUN 44 mg/dL (9-20) H 12/17/17 06:32 Creatinine 8.4 mg/dL (0.8-1.5) H* 12/17/17 06:32 Est GFR ( Amer) 8 12/17/17 06:32 Est GFR (Non-Af Amer) 7 12/17/17 06:32 POC Glucose (mg/dL) 151 mg/dL (65-110) H 12/17/17 07:05 Random Glucose 142 mg/dL (75-110) H 12/17/17 06:32 Calcium 8.6 mg/dl (8.6-10.4) 12/17/17 06:32 Phosphorus 8.1 mg/dL (2.5-4.5) H 12/17/17 06:32 Magnesium 2.1 mg/dL (1.6-2.3) 12/17/17 06:32 Total Bilirubin 0.7 mg/dL (0.2-1.3) 12/17/17 06:32 AST 25 U/L (17-59) 12/17/17 06:32 ALT 22 U/L (21-72) 12/17/17 06:32 Alkaline Phosphatase 64 U/L (38-126) 12/17/17 06:32 Troponin I 0.2290 ng/mL (0.00-0.120) H* 12/12/17 11:49 NT-Pro-B Natriuret Pep 2080 pg/mL (0-900) H 12/12/17 11:49 Total Protein 6.7 g/dL (6.3-8.3) 12/17/17 06:32 Albumin 3.8 g/dL (3.5-5.0) 12/17/17 06:32 Globulin 2.9 gm/dL (2.2-3.9) 12/17/17 06:32 Albumin/Globulin Ratio 1.3 (1.0-2.1) 12/17/17 06:32 Venous Blood Potassium 3.4 mmol/L (3.6-5.2) L 12/12/17 12:05 Urine Color Yellow (YELLOW) 12/12/17 15:11 Urine Clarity Clear (Clear) 12/12/17 15:11 Urine pH 6.0 (5.0-8.0) 12/12/17 15:11 Ur Specific [place] 1.012 (1.003-1.030) 12/12/17 15:11 Urine Protein 3+ mg/dL (NEGATIVE) H 12/12/17 15:11 Urine Glucose (UA) 2+ mg/dL (Normal) H 12/12/17 15:11 Urine Ketones Negative mg/dL (NEGATIVE) 12/12/17 15:11 Urine Blood Negative (NEGATIVE) 12/12/17 15:11 Urine Nitrate Negative (NEGATIVE) 12/12/17 15:11 Urine Bilirubin Negative (NEGATIVE) 12/12/17 15:11 Urine Urobilinogen Normal mg/dL (0.2-1.0) 12/12/17 15:11 Ur Leukocyte Esterase Neg Larisa/uL (Negative) 12/12/17 15:11 Urine WBC (Auto) 1 /hpf (0-5) 12/12/17 15:11 Ur Squamous Epith Cells < 1 /hpf (0-5) 12/12/17 15:11 Blood Type O POSITIVE 12/13/17 08:07 Antibody Screen Negative 12/13/17 08:07 Attending/Attestation - Attestation I have personally seen and examined this patient.: Yes I have fully participated in the care of the patient.: Yes I have reviewed all pertinent clinical information, including history, physical exam and plan: Yes Notes (Text): 12/17/17 14:57 Medical attending: Patient was seen and examined by me, agrees the above note by the medical dosimetrist. Patient reported that he was feeling much better than previously. Yesterday we started him on a regimen of morphine as well as Percocet. The patient has only been using the Percocet. He is able to stand up and walk around at the hallway. He looks remarkably better than when we saw on previous couple of days. He does not want to go to rehabilitation. He understands that he needs to follow-up with his primary care physician as well as with urology. Also the patient will need a prescription for pain medication to go home with as well. He's will need to continue getting his hemodialysis as before Thank you very much, Asael Ackerman
[2017-12-17] MEDS: Oxycodone/Acetaminophen 5/325 mg Tab PO PRN (13:20)
== END 2017-12-17 15:40 | disposition home or self-care (01) | DRG 981 ==
LOC: C.ER 11:10 → C.9E 12:49 → C.6T 21:03 → C.9S 12-13 12:07 → C.6T 12-13 12:11 → C.9I 12-13 12:13 → C.3T 12-14 19:14
PROVIDERS: ADMIT Hospitalist; ATTEND Hospitalist
PROC: 5A1D70Z Performance of Urinary Filtration, Intermittent, Less than 6 Hours Per Day (ICD-10-PCS; 2017-12-12)
PROC: 5A09457 Assistance with Respiratory Ventilation, 24-96 Consecutive Hours, Continuous Positive Airway Pressure (ICD-10-PCS; 2017-12-12)
PROC: 8E0W4CZ Robotic Assisted Procedure of Trunk Region, Percutaneous Endoscopic Approach (ICD-10-PCS; 2017-12-13)
PROC: 0TT14ZZ Resection of Left Kidney, Percutaneous Endoscopic Approach (ICD-10-PCS; principal; 2017-12-13 09:00)
DX: J44.1 Chronic obstructive pulmonary disease with (acute) exacerbation (principal); N18.6 End stage renal disease; I21.4 Non-ST elevation (NSTEMI) myocardial infarction; I13.2 Hypertensive heart and chronic kidney disease with heart failure and with stage 5 chronic kidney disease, or end stage renal disease; J45.901 Unspecified asthma with (acute) exacerbation; I42.9 Cardiomyopathy, unspecified; C64.2 Malignant neoplasm of left kidney, except renal pelvis; Z99.2 Dependence on renal dialysis; E11.22 Type 2 diabetes mellitus with diabetic chronic kidney disease; I50.9 Heart failure, unspecified; D63.1 Anemia in chronic kidney disease; E21.3 Hyperparathyroidism, unspecified; E78.5 Hyperlipidemia, unspecified; G47.33 Obstructive sleep apnea (adult) (pediatric); I71.2 Thoracic aortic aneurysm, without rupture; R09.02 Hypoxemia; Z79.4 Long term (current) use of insulin